=== PATIENT | female | born 1955 | race Caucasian/White ===

== ENCOUNTER 2023-04-23 01:13 | Inpatient (IN) ==
[2023-04-23] MEDS ORDERED: GLUCAGON FOR INJ 1 MG VIAL SQ PRN (01:52)
[2023-04-23] MEDS ORDERED: GLUCOSE 40% GEL 15 GM TUBE PO PRN (01:52)
[2023-04-23] MEDS ORDERED: GLUCOSE 10 TAB/TUBE PO PRN (01:52)
[2023-04-23] MEDS ORDERED: CARBOHYDRATES FOR HYPOGLYCEMIA PO PRN (01:52)
[2023-04-23] MEDS ORDERED: DEXTROSE 50% 50 ML SYRINGE IV PRN (01:52)
[2023-04-23] MEDS ORDERED: cefTRIAXone SODIUM 1,000 MG in DEXTROSE 5% AD-VAN 50 ML IV STA (02:12)
[2023-04-23] MEDS: LACTATED RINGER'S 1,000 ML IV SCH ×2 (02:20→04:26)
[2023-04-23 03:10] LABS: Hematocrit (blood only) 36.1 % (37.0-47.0); Hemoglobin 12.4 g/dl (12.0-16.0); Mean Corpuscular Hemoglobin 27.9 pg (25.0-34.0); Mean Corpuscular Hgb Conc 34.3 g/dL (32.0-36.0); Mean Corpuscular Volume 81.1 fL (80.0-100.0); Mean Platelet Volume 10.2 fL (9.4-12.4); Platelet Count 238 K/uL (130-400); RDW Coefficient of Variation 14.6 % (11.5-14.5); RDW Standard Deviation 42.9 fL (36.4-46.3); Red Blood Count 4.45 M/uL (4.20-5.40); White Blood Count 12.52 K/ul (4.8-10.8)
[2023-04-23] MEDS: INSULIN ASPART PER UNIT CHARGE SC SCH ×5 (03:23→20:18)
[2023-04-23 03:26] LABS: Albumin Globulin Ratio 1.2 (0.9-2); Albumin Level 3.2 gm/dl (3.4-5.0); BUN Creatinine Ratio 20.5 (10-20); Bilirubin,Total 0.8 mg/dl (0.2-1.0); C Reactive Protein 14.63 mg/dl (0-0.5); Calcium 8.2 mg/dl (8.6-10.3); Creatinine Clr Calc Pharmacy 64.8 ml/min; Est GFR (African American) 79.9 ml/min; Est GFR (Non-African American) 68.9 ml/min; Globulin 2.7 gm/dl (2.5-4.0); Potassium 3.8 mmol/L (3.5-5.1); Total Protein 5.9 gm/dl (6.0-8.3)
[2023-04-23 03:31] LABS: Troponin I High Sensitivity 8.4 pg/ml (0-14)
[2023-04-23 03:35] LABS: INR 1.1 (0.9-1.1); Prothrombin Time 12.2 Seconds (9.0-12.0)
[2023-04-23] MEDS ORDERED: PIPERACILLIN/TAZOBACTAM 4.5 GM (over 30 mins) IV ONE (04:30)
[2023-04-23 04:31] LABS: Base Excess ABG 0.8 mEq/L (-9-1.8); HCO3 ABG 25 mmol/L (19-24); PCO2 ABG 39 mmHg (35-46); PO2 ABG 31 mmHg (80-95); pH ABG 7.42 (7.35-7.45)
--- NOTE | 2023-04-23 04:34 | History & Physical Report ---
Date of Service April 23, 2023 Assessment & Plan (1) Sepsis: Plan: Patient is a 67-year-old female with a past medical history of hyperlipidemia, DM 2-uncontrolled, hypertension, CAD with previous stent placement who is a direct transfer from [facility]. Patient is minimally responsive to questions, but is hemodynamically stable. Patient is admitted to telemetry and is showing sinus tachycardia with otherwise normal vitals now. -Admit to telemetry -SIRS criteria at emergency department [facility] included leukocytosis, tachycardia, and fever with infectious source being urinary, CRP at 14.6 -Patient given 2 g of Rocephin total, given uncontrolled diabetes and current clinical picture, expand to Zosyn -Additional 2 L of LR given on admission to complete 30 cc per kg. -ABG pending -Originally showing signs of endorgan damage with elevated lactate and creatinine at [facility], both have improved -Tylenol as needed for fever -Zofran as needed for nausea (2) Altered mental status: Plan: -Unfortunately mental status has deteriorated with transportation to this facility. -Suspect metabolic encephalopathy in the setting of elevated blood sugars and sepsis. -Given left lower extremity weakness as complaint for going to the emergency department, MRI of the brain ordered to rule out bleed/stroke -Otherwise lab abnormalities improving (3) Hypercholesteremia: Plan: -Continue statin (4) HTN (hypertension): Plan: -Continue hold home BP meds in the setting of severe sepsis for now (5) Coronary artery disease: Plan: -Continue aspirin, Plavix, statin -Continue isosorbide mononitrate -Not noted in her chart, but patient likely has congestive heart failure as patient is on spironolactone, lisinopril, carvedilol which would all be therapies for congestive heart failure. I called [facility] ED to see if this was in the records and they had no history of it nor do they have an echocardiogram. (6) Uncontrolled type 2 diabetes mellitus with hyperglycemia: Plan: -Per [facility] ED note, patient has been out of diabetic medication for some time -Blood glucose was 400 at [facility] ED without evidence of DKA -Placed on basal bolus insulin with sliding scale based on weight -Carb consistent diet -A1c ordered (7) Tachycardia: Plan: -Sinus tachycardia since admission -Also noted at [facility] ED -Suspect due to sepsis, however, not responding to fluid resuscitation -Blood pressure also elevated currently -ABG ordered if patient has nonanion gap acidosis, this could increase heart rate -No complaint of chest pain here or at [facility] ED -High-sensitivity troponin negative at 8.4 Plan Disposition: Admit to telemetry with sepsis treatment and altered mental status work-up Diet: Carb consistent DVT prophylaxis: Lovenox CODE STATUS: Assumed full code given patient not able to clearly answer questions at this time Admission and Anticipated Discharge Date Admission Date: April 23, 2023 History of Present Illness Chief Complaint: Generally unwell Primary Care Provider: Keyshawn Echavarria Maria T Patient is a 67-year-old female with a past medical history of hyperlipidemia, DM 2-uncontrolled, hypertension, CAD with previous stent placement who is a direct transfer from [facility]. Patient is lethargic and minimally responding to questions at the time of patient's arrival to the floor in my exam. Patient was initially seen in their ED for neurologic deficit as she was having left lower extremity weakness that was intermittent throughout the day per ED note. Patient had work-up in their emergency department which was suggestive of sepsis due to a urinary source: Patient was febrile, tachycardic, and had an elevated white count at 14.3. Lactic acid was 2.5. She had a urinalysis that was positive for leukocyte esterase and blood. She was given 1 g of Rocephin in the ED at [facility]. Additionally her blood sugars were found to be in the 400s and she was given a total of 15 units of Lantus and 5 units of regular insulin. Because of the left lower extremity weakness, she had a CT of the head performed without contrast that was negative for acute abnormality. Per the hospital administration at [facility], patient need to be transferred due to neurologic deficit even though the attending provider reported that the deficit was almost entirely resolved with fluid and antibiotic therapy. Patient was accepted by Dr. Nascimento for direct admission. Upon arrival, patient is minimally responsive to questions. She does not answer to where she is or why she is here. States that her leg feels "okay". No family is with her on her arrival. No meaningful HPI gathered from patient at this time Allergies Allergy/AdvReac Type Severity Reaction Status Date / Time bee venom protein (honey bee) Allergy Verified 07/06/20 11:03 Home Medications Medication Instructions Recorded Confirmed Type aspirin 81 mg tablet,delayed 81 mg PO DAILY 07/06/20 04/23/23 History release (Adult Low Dose Aspirin) clopidogrel 75 mg tablet (Plavix) 75 mg PO DAILY 07/06/20 04/23/23 History pramipexole 0.25 mg tablet 0.375 mg PO BID 07/06/20 04/23/23 History (Mirapex) metoprolol succinate 200 mg 200 mg PO QAM 04/23/23 04/23/23 History tablet,extended release 24 hr blood sugar diagnostic (OneTouch #100 ea 04/26/23 Rx Verio test strips) cefdinir 300 mg capsule 300 mg PO BID #14 caps 04/26/23 Rx insulin glargine 100 unit/mL (3 18 unit (0.18 mL) subcut BID #15 mL 04/26/23 Rx mL) subcutaneous pen (Lantus Solostar U-100 Insulin) isosorbide mononitrate 60 mg 120 mg PO DAILY #0 tabs 04/26/23 Rx tablet,extended release 24 hr lancets 33 gauge (OneTouch Delica #100 ea 04/26/23 Rx Plus Lancet) metformin 500 mg tablet,extended 500 mg PO PM #30 tabs 04/26/23 Rx release 24 hr pantoprazole 40 mg tablet,delayed 40 mg PO DAILY #0 tabs 04/26/23 Rx release pen needle, diabetic 32 gauge x #100 ea 04/26/23 Rx 5/32" (Pen Needle) rosuvastatin 10 mg tablet 10 mg PO QAM #30 tabs 04/26/23 Rx spironolactone 100 mg tablet 50 mg PO QAM #30 tabs 04/26/23 04/24/23 Rx Past Med/Surg History Medical History (Updated 04/24/23 @ 11:10 by Sosa Barnes MD) CHF (congestive heart failure) Coronary artery disease HTN (hypertension) Hypercholesteremia Lumbago Lumbar facet joint syndrome Restless leg Spinal stenosis, lumbar region without neurogenic claudication Surgical History (Updated 07/06/20 @ 12:31 by Tabitha Mcclendon DO) History of lumbar surgery L4-5 discectomy Social History (Updated 07/06/20 @ 11:01 by Pina Perera RN) Smoking Status: Never smoker Hx Alcohol Use: No Hx Substance Use: No Preferred Language: Swedish Communication Ability: Effective Visual Impairment: Limited Hearing Ability: Hard of Hearing Lye Peel Operator Required: No Beliefs That Will Affect Care: None marital status: Current Living Situation: Spouse current occupational status: retired Feels Safe at Home: Yes Assistive Devices: None Review of Systems Review of Systems: Unobtainable due to cognitive status Physical Exam Constitutional: well developed, well nourished and + ill appearing Eyes: + anicteric sclerae Neck: normal visual inspection Respiratory: normal respiratory effort, lungs clear to auscultation Cardiovascular: Rate/Rhythm: regular rhythm and + tachycardic Vessels: no JVD Gastrointestinal (Abdomen): normal bowel sounds, soft, nontender, no hepatosplenomegaly Musculoskeletal: Head/Neck/Chest: normocephalic and head atraumatic Unable to perform thorough MSK/neuro exam given current cognitive status. Skin: normal turgor Neurologic: Speech / Cognition: + abnormal cognition Psychiatric: Orientation: oriented to person; + not oriented to place and + not oriented to time Lymphatic: no cervical or axillary lymphadenopathy Results & Data Results & Data Vital Signs (Past 12 Hours) Vital Signs Temp Pulse Pulse Resp BP Pulse Ox O2 Del Method 04/23/23 03:14 36.9 C 130 H 22 150/84 H 93 Room Air 04/23/23 02:42 126 H 04/23/23 01:57 37.2 C 114 H 21 127/62 92 Room Air 04/23/23 01:52 37.2 C 114 H 21 127/62 92 Room Air Code Status & VTE Plan VTE Prophylaxis Plan VTE Prophylaxis will be ordered: Yes Supervising Physician Co-Signing Physician Notes Attending addendum: I have physically seen this patient, have supervised the medical residents activities, and agree with the H&P unless as otherwise noted. Assessment and Plan: Sepsis presumptively due to UTI- Follow urine culture sensitivity Follow blood culture and sensitivity Received ceftriaxone 2 g IV from the ED Admit Zosyn 4.5 g IV every 8 hours Sepsis dose IV fluids at 30 mils per kilo Acetaminophen 650 mg by mouth every 6 hours as needed for mild pain or fever Zofran 4 mg IV every 6 hours as needed Metabolic encephalopathy- Ordering MRI to assess for possible CVA as cause Otherwise treat with antibiotics as noted above and IV fluid resuscitation Hypertension- Home medications on hold due to borderline blood pressure CAD- Continue aspirin, Plavix, isosorbide mononitrate Uncontrolled diabetes mellitus with hyperglycemia- Placed on basal bolus insulin with sliding scale Check hemoglobin A1c Remaining orders and notations as noted
[2023-04-23 04:41] LABS: Allen Test Pos (Pos); Oxygen Saturation ABG < 60.0 % (90-95)
[2023-04-23] MEDS: HEPARIN SOD 5,000 UNIT/0.5 ML VIAL SQ SCH ×3 (06:00→21:23)
[2023-04-23 07:08] LABS: Amphetamines+Metham, Urine Neg (Neg); Barbiturates, Urine Neg (Neg); Benzodiazepine, Urine Neg (Neg); Cocaine, Urine Neg (Neg); MDMA (Ecstacy), Urine Neg (Neg); Methadone, Urine Neg (Neg); Opiate, Urine Neg (Neg); Phencyclidine, Urine Neg (Neg)
[2023-04-23 07:43] LABS: Estimated Average Glucose 352 mg/dl; Hemoglobin A1C 13.9 % (4.5-5.6)
--- NOTE | 2023-04-23 08:38 | Electrocardiogram Report ---
Test Reason : Blood Pressure : / mmHG Vent. Rate : 125 BPM Atrial Rate : 125 BPM P-R Int : 170 ms QRS Dur : 074 ms QT Int : 288 ms P-R-T Axes : 059 029 047 degrees QTc Int : 415 ms Sinus tachycardia Diffuse Minor Nonspecific ST abnormality Abnormal ECG No previous ECGs available Confirmed by Rene Hicks ([id number]) on 04/23/2023 8:38:10 AM Referred By: Shade Nascimento Confirmed By:Rene Hicks
[2023-04-23] MEDS ORDERED: NITROGLYCERIN 0.4 MG/HR PATCH TD SCH (09:00)
[2023-04-23] MEDS: PIPERACILLIN/TAZOBACTAM 4.5 GM in DEXTROSE 5% 100 ML IV SCH ×2 (09:18→17:25)
[2023-04-23] MEDS: ASPIRIN 81 MG ECTAB PO SCH (09:19)
[2023-04-23] MEDS: CLOPIDOGREL BISULFATE 75 MG TAB PO SCH (09:20)
[2023-04-23] MEDS: ISOSORBIDE MONO EXTENDED REL 60 MG TABCR PO SCH (09:21)
[2023-04-23] MEDS: PRAMIPEXOLE DIHYDROCHLO 0.25 MG TAB PO SCH ×2 (09:22→20:09)
[2023-04-23] MEDS: PANTOprazole 40 MG TAB PO SCH (09:22)
[2023-04-23] MEDS: ROSUVASTATIN CALCIUM 10 MG TAB PO SCH (09:26)
[2023-04-23] MEDS: MAGNESIUM SULFATE / D5W 1 GM/100 ML BAG IV SCH ×3 (09:46→15:21)
[2023-04-23] MEDS: LANTUS PER UNIT CHARGE SQ SCH ×2 (09:53→20:18)
[2023-04-23] MEDS ORDERED: GADOBUTROL 65ML VIAL IV ONE (11:11)
--- NOTE | 2023-04-23 11:55 | Magnetic Resonance Report ---
MR brain wo/w con HISTORY: 67 years-old Female LE weakness/ altered mental status acutely altered mental status COMPARISON: None TECHNIQUE: Multiplanar multisequence MR of the brain was obtained both with and without the use of 8. 5 cc Gadavist FINDINGS: No restricted diffusion. Midline structures are unremarkable. There is no acute intracranial hemorrha ge, midline shift, abnormal extra-axial collection, hydrocephalus or intracranial mass. Study is mild ly motion degraded. Mild scattered T2/FLAIR hyperintense foci throughout the white matter. No abnorma l enhancement. Cerebral venous sinuses and major arterial flow voids are patent. Skull, orbits and soft tissues are unremarkable. Mild mucosal thickening of the paranasal sinuses. Mastoid air cells are clear. IMPRESSION: 1. No acute intracranial abnormality. 2. No abnormal enhancement. 3. Mild T2/FLAIR hyperintense foci throughout the white matter are nonspecific, likely representing c hronic microvascular ischemic disease. ACT 112: Negative or not required by law. The above report was generated using voice recognition software. It may contain grammatical, syntax o r spelling errors. Electronically signed by: Osmin Mathews M.D. 04/23/2023 11:54 AM
--- NOTE | 2023-04-23 12:04 | History & Physical Bridge Note ---
Date of Service April 23, 2023 History & Physical Bridge Note I have examined the patient, reviewed the History & Physical and in the interval since the performance of the History & Physical I have noted the following changes of clinical significance: Pt much more clear with mentation when seen this AM. Is about to eat lunch. C/o chronic back pain worsened by lying in bed for the last day. Denies chest pain, SOB, cough, abd pain, constipation, diarrhea. Was having urinary frequency and urgency for 1 week prior to admission. No fevers/chills she knows of. Does recall having some intermittent left leg weakness yesterday which is now resolved. Brain MRI reviewed and is negative for acute issues. She reports noncompliance with almost all of her meds except ASA,Plavix, Toprol XL, and Mirapex. She has not seen a [employer] [facility] in years she thinks and has not seen a PCP in over a year. She has not been checking her glucose. Vitals reviewed, sinus tach on tele, BPs elevated, now with fever AAOx3, obese, drowsy at times, sitting in chair tachy but reg rhythm CTAB no wcr Abd +BS soft NT ND Ext trace pitting edema 67 yo female here with sepsis, UTI, acute metabolic encephalopathy Severely uncontrolled DM, noncompliance with other cardiac meds, no records available but has a h/o CAD with 4 stents -dc nitropatch but can continue isosorbide given history and BPs are elevated restart home Toprol but split into 100mg po bid no further IVFs needed tylenol for back pain continue current antibiotics follow cultures here and back at [facility] insulin for DM and will need diabetic education Needs PCP
[2023-04-23] MEDS: ACETAMINOPHEN 325 MG TAB PO PRN (12:15)
[2023-04-23] MEDS: METOPROLOL SUCC 50MG EXT REL TAB PO SCH ×2 (13:29→20:08)
[2023-04-24] MEDS: PIPERACILLIN/TAZOBACTAM 4.5 GM in DEXTROSE 5% 100 ML IV SCH ×3 (01:39→17:10)
[2023-04-24] MEDS: ACETAMINOPHEN 325 MG TAB PO PRN ×3 (03:10→21:11)
[2023-04-24] MEDS: HEPARIN SOD 5,000 UNIT/0.5 ML VIAL SQ SCH ×3 (05:43→21:12)
[2023-04-24 06:48] LABS: Basophils # (auto) 0.04 K/uL (0-0.2); Basophils % (auto) 0.3 %; Eosinophils # (auto) 0.13 K/uL (0-0.50); Eosinophils % (auto) 1.1 %; Hematocrit (blood only) 32.1 % (37.0-47.0); Hemoglobin 10.9 g/dl (12.0-16.0); Immature Granulocytes # (auto) 0.06 K/uL (0.01-0.20); Immature Granulocytes % (auto) 0.5 %; Lymphocytes # (auto) 1.91 K/uL (1.2-3.4); Lymphocytes % (auto) 16.6 %; Mean Corpuscular Hemoglobin 27.6 pg (25.0-34.0); Mean Corpuscular Volume 81.3 fL (80.0-100.0); Mean Platelet Volume 10.7 fL (9.4-12.4); Monocytes # (auto) 1.23 K/uL (0.11-0.59); Monocytes % (auto) 10.7 %; Neutrophils # (auto) 8.16 K/uL (1.40-6.50); Neutrophils % (auto) 70.8 %; Platelet Count 228 K/uL (130-400); RDW Coefficient of Variation 14.7 % (11.5-14.5); RDW Standard Deviation 43.1 fL (36.4-46.3); Red Blood Count 3.95 M/uL (4.20-5.40); White Blood Count 11.53 K/ul (4.8-10.8)
[2023-04-24 07:05] LABS: Albumin Globulin Ratio 1.1 (0.9-2); Albumin Level 3.1 gm/dl (3.4-5.0); BUN Creatinine Ratio 15.7 (10-20); Bilirubin,Total 0.9 mg/dl (0.2-1.0); Calcium 8.5 mg/dl (8.6-10.3); Creatinine Clr Calc Pharmacy 52.8 ml/min; Est GFR (African American) 62.4 ml/min; Est GFR (Non-African American) 53.8 ml/min; Globulin 2.8 gm/dl (2.5-4.0); Magnesium 1.8 mg/dl (1.7-2.4); Potassium 3.6 mmol/L (3.5-5.1); Total Protein 5.9 gm/dl (6.0-8.3)
[2023-04-24] MEDS ORDERED: MAGNESIUM SULFATE / D5W 1 GM/100 ML BAG IV ONE (07:58)
[2023-04-24] MEDS ORDERED: POTASSIUM CHLORIDE CRTAB 20 MEQ TABCR PO STA (07:59)
[2023-04-24] MEDS: INSULIN ASPART PER UNIT CHARGE SC SCH ×4 (08:33→20:44)
[2023-04-24] MEDS: LANTUS PER UNIT CHARGE SQ SCH ×2 (08:33→20:43)
[2023-04-24] MEDS: ISOSORBIDE MONO EXTENDED REL 60 MG TABCR PO SCH (08:35)
[2023-04-24] MEDS: PANTOprazole 40 MG TAB PO SCH (08:35)
[2023-04-24] MEDS: CLOPIDOGREL BISULFATE 75 MG TAB PO SCH (08:35)
[2023-04-24] MEDS: ASPIRIN 81 MG ECTAB PO SCH (08:35)
[2023-04-24] MEDS: PRAMIPEXOLE DIHYDROCHLO 0.25 MG TAB PO SCH ×2 (08:35→20:33)
[2023-04-24] MEDS: ROSUVASTATIN CALCIUM 10 MG TAB PO SCH (08:36)
[2023-04-24] MEDS: METOPROLOL SUCC 50MG EXT REL TAB PO SCH ×2 (08:36→20:35)
--- NOTE | 2023-04-24 11:11 | Hospitalist Progress Note ---
Date of Service April 24, 2023 Assessment & Plan (1) Sepsis: Plan: Patient is a 67-year-old female with a past medical history of hyperlipidemia, DM 2-uncontrolled, hypertension, CAD with previous stent placement who is a direct transfer from [facility] who is here with sepsis, UTI, and acute encephalopathy. She was having dysuria and urinary urgency and frequency for 1 week prior to admission, does not recall fevers or chills at home. Continues to spike fevers, tachycardia is improving, encephalopathy greatly improved, leukocytosis improving Blood cultures remain no growth to date here and at [facility]. Urine culture pending both here and at [facility] IV fluids were discontinued after initial volume resuscitation due to history of CHF Procalcitonin mildly elevated Initially given Rocephin at [facility] and remains on Zosyn here -Continue to follow cultures both here and at [facility] -Tylenol as needed for fever -Continue to follow CBC, CMP (2) Acute metabolic encephalopathy: Plan: -Suspect metabolic encephalopathy in the setting of elevated blood sugars and sepsis. -Given left lower extremity weakness as complaint for going to the emergency department MRI of the brain ordered to rule out bleed/stroke at outside hospital--negative Otherwise greatly improved (3) Uncontrolled type 2 diabetes mellitus with hyperglycemia: Plan: -patient has been out of diabetic medication for some time and cites not having a PCP as the reason She is not checking her blood sugars Hemoglobin A1c her 13.9% -Blood glucose was 400 at [place] ED without evidence of DKA Now much improved control-continue to titrate up slowly on insulin regimen Seen by tree trimmer-patient is willing to go back on Lantus at home and metformin Needs PCP follow-up (4) Tachycardia: Plan: -Sinus tachycardia upon admission secondary to sepsis and beta-silviano with drawal -High-sensitivity troponin negative at 8.4 -Now greatly improved with volume resuscitation and restarting her home Toprol- XL -Follow on telemetry (5) HTN (hypertension): Plan: Blood pressures are now elevated-restarted home Toprol-XL Will restart spironolactone today but at a lower dose than home dose-start 25 mg daily Follow BMP (6) Coronary artery disease: Plan: -Continue aspirin, Plavix, statin -Lipid panel with elevated triglycerides likely from uncontrolled diabetes, LDL controlled at 100, low HDL 27 -Continue isosorbide mononitrate -Not noted in her chart, but patient likely has congestive heart failure as patient is on spironolactone, lisinopril, carvedilol which would all be therapies for congestive heart failure She has not follow-up with cardiology in years but it seems as per her med rec that cardiology is prescribing several medications although she has been noncompliant Restarting home spironolactone at lower dose 25 mg daily (7) Hypercholesteremia: Plan: -Continue statin Lipid panel as above (8) Restless leg: Plan: Continue home Mirapex (9) CHF (congestive heart failure): Plan: Possibly HFrEF? No previous records Consider echocardiogram here but not necessary at this time Needs to establish follow-up with cardiology again as an outpatient (10) Lumbago: Plan: Chronic Tylenol as needed Plan DVT prophylaxis-heparin SQ Disposition-continued stay in PCU, slowly improving, PT/OT consults placed Admission and Anticipated Discharge Date Admission Date: April 23, 2023 Subjective Patient feeling better today, no abdominal pain. No chest pain or shortness of breath. Has not moved bowels since admission, requesting stool softener Would like Chi catheter out Has noticed her ankles are swelling would like to be restarted on her home water pill Telemetry with sinus tachycardia 90s to 100s overnight and now improved to normal sinus rhythm with rates in the 70s Physical Exam Constitutional: WD/WN, vitals as above Neck: trachea midline, no thyromegaly Respiratory: normal respiratory effort, lungs clear to auscultation Cardiovascular: Rate/Rhythm: regular rate and regular rhythm Extremities: + edema (Trace ankle edema) Chest (Breasts): Chest: normal inspection of chest Gastrointestinal (Abdomen): normal bowel sounds, soft, nontender, no hepatosplenomegaly Musculoskeletal: Extremities: extremities normal to inspection; no cyanosis and no clubbing Skin: no rashes, warm and dry Neurologic: moves all extremities and awake; no focal motor deficits Psychiatric: A+Ox3, euthymic affect Genitourinary: Chi catheter in place draining clear yellow urine Results & Data Results & Data Vital Signs (Past 12 Hours) Vital Signs Temp Pulse Pulse Resp BP BP Pulse Ox 04/24/23 08:00 91 H 04/24/23 07:27 37.0 C 87 19 109/68 95 04/24/23 03:11 38.1 C H 98 H 20 118/69 95 04/24/23 00:24 103 H O2 Del Method O2 Flow Rate 04/24/23 08:00 04/24/23 07:27 Nasal Cannula 2.0 04/24/23 03:11 Nasal Cannula 2 04/24/23 00:24 Laboratory Results CBC, CMP, TSH, lipid panel reviewed Blood cultures no growth to date Urine culture pending I called [facility] lab and blood cultures there are preliminary no growth, urine culture pending PG Care Time/CCT Total # of Minutes Spent Total Time Spent with Patient: Total time spent is greater than 50% in coordination of care (as documented) at patient's floor/unit and/or counseling patient: Coding Level of Care Code 80651 SUB INP/OBS CARE 3/50MIN Diagnoses Sepsis A41.9 Acute metabolic encephalopathy G93.41 Uncontrolled type 2 diabetes mellitus with hyperglycemia E11.65 Tachycardia R00.0 HTN (hypertension) I10 Coronary artery disease I25.10 Hypercholesteremia E78.00 Restless leg G25.81 CHF (congestive heart failure) I50.9 Lumbago M54.5; G89.29 Back pain laterality: midline Chronicity: chronic Sciatica presence: without sciatica (10) Lumbago Back pain laterality: midline Chronicity: chronic Sciatica presence: without sciatica Qualified Code(s): M54.5 - Low back pain; G89.29 - Other chronic pain
[2023-04-24] MEDS: SPIRONOLACTONE 25 MG TAB PO SCH (12:02)
[2023-04-24] MEDS: DOCUSATE SODIUM 100 MG CAP PO SCH ×2 (12:02→20:35)
[2023-04-24] MEDS ORDERED: LIDOCAINE 5% 1 PATCH TD STA (23:17)
[2023-04-25] MEDS: PIPERACILLIN/TAZOBACTAM 4.5 GM in DEXTROSE 5% 100 ML IV SCH ×3 (01:50→17:58)
[2023-04-25] MEDS: HEPARIN SOD 5,000 UNIT/0.5 ML VIAL SQ SCH (05:36)
[2023-04-25 08:26] LABS: Basophils # (auto) 0.06 K/uL (0-0.2); Basophils % (auto) 0.6 %; Eosinophils # (auto) 0.18 K/uL (0-0.50); Eosinophils % (auto) 1.9 %; Hematocrit (blood only) 34.6 % (37.0-47.0); Hemoglobin 11.6 g/dl (12.0-16.0); Immature Granulocytes # (auto) 0.06 K/uL (0.01-0.20); Immature Granulocytes % (auto) 0.6 %; Lymphocytes # (auto) 2.09 K/uL (1.2-3.4); Lymphocytes % (auto) 21.9 %; Mean Corpuscular Hemoglobin 27.5 pg (25.0-34.0); Mean Corpuscular Hgb Conc 33.5 g/dL (32.0-36.0); Mean Platelet Volume 10.3 fL (9.4-12.4); Monocytes # (auto) 0.91 K/uL (0.11-0.59); Monocytes % (auto) 9.5 %; Neutrophils # (auto) 6.26 K/uL (1.40-6.50); Neutrophils % (auto) 65.5 %; Platelet Count 250 K/uL (130-400); RDW Coefficient of Variation 14.6 % (11.5-14.5); RDW Standard Deviation 43.3 fL (36.4-46.3); Red Blood Count 4.22 M/uL (4.20-5.40); White Blood Count 9.56 K/ul (4.8-10.8)
[2023-04-25 08:44] LABS: Albumin Level 3.5 gm/dl (3.4-5.0); BUN Creatinine Ratio 14.3 (10-20); Bilirubin,Total 0.5 mg/dl (0.2-1.0); Calcium 9.1 mg/dl (8.6-10.3); Creatinine Clr Calc Pharmacy 58.2 ml/min; Est GFR (African American) 70.2 ml/min; Est GFR (Non-African American) 60.5 ml/min; Globulin 3.4 gm/dl (2.5-4.0); Magnesium 1.7 mg/dl (1.7-2.4); Potassium 3.9 mmol/L (3.5-5.1); Total Protein 6.9 gm/dl (6.0-8.3)
[2023-04-25] MEDS: INSULIN ASPART PER UNIT CHARGE SC SCH ×4 (09:04→20:26)
[2023-04-25] MEDS: ASPIRIN 81 MG ECTAB PO SCH (09:05)
[2023-04-25] MEDS: CLOPIDOGREL BISULFATE 75 MG TAB PO SCH (09:05)
[2023-04-25] MEDS: LANTUS PER UNIT CHARGE SQ SCH ×2 (09:05→20:26)
[2023-04-25] MEDS: METOPROLOL SUCC 50MG EXT REL TAB PO SCH ×2 (09:06→20:30)
[2023-04-25] MEDS: DOCUSATE SODIUM 100 MG CAP PO SCH (09:06)
[2023-04-25] MEDS: ISOSORBIDE MONO EXTENDED REL 60 MG TABCR PO SCH (09:06)
[2023-04-25] MEDS: SPIRONOLACTONE 25 MG TAB PO SCH (09:07)
[2023-04-25] MEDS: ROSUVASTATIN CALCIUM 10 MG TAB PO SCH (09:07)
[2023-04-25] MEDS: PRAMIPEXOLE DIHYDROCHLO 0.25 MG TAB PO SCH ×2 (09:07→20:30)
[2023-04-25] MEDS: PANTOprazole 40 MG TAB PO SCH (09:07)
[2023-04-25] MEDS ORDERED: SPIRONOLACTONE 25 MG TAB PO ONE (13:43)
--- NOTE | 2023-04-25 13:49 | Hospitalist Progress Note ---
Date of Service April 25, 2023 Assessment & Plan (1) Sepsis: Plan: Patient is a 67-year-old female with a past medical history of hyperlipidemia, DM 2-uncontrolled, hypertension, CAD with previous stent placement X4 who is a direct transfer from [facility] here with sepsis, UTI, and acute encephalopathy. She was having dysuria and urinary urgency and frequency for 1 week prior to admission, does not recall fevers or chills at home. Fevers, tachycardia, encephalopathy, and leukocytosis all now resolved. Blood pressures are normal to mildly elevated Blood cultures remain no growth to date here and at [facility] except 1/2 coagulase- negative Staphylococcus which is likely skin contaminant. Urine culture mixed richie here, [facility] urine culture pending IV fluids were discontinued after initial volume resuscitation due to history of CHF Procalcitonin mildly elevated Initially given Rocephin at [facility] and remains on Zosyn here for broad- spectrum coverage for urinary source -Continue to follow cultures both here and at [facility]-would call [facility] again on for final result of urine and blood -Continue Zosyn for now but then can transition to p.o. antibiotic for UTI if blood cultures remain negative -Tylenol as needed for fever -Continue to follow CBC, CMP (2) Acute metabolic encephalopathy: Plan: -Suspect metabolic encephalopathy in the setting of elevated blood sugars and sepsis. Now resolved -Given left lower extremity weakness as complaint for going to the emergency department MRI of the brain ordered to rule out bleed/stroke at outside hospit al--negative (3) Uncontrolled type 2 diabetes mellitus with hyperglycemia: Plan: -patient has been out of diabetic medication for some time and cites not having a PCP as the reason She is not checking her blood sugars at home and reports no one ever gave her education on diabetes and she was diagnosed about 2 years ago and placed on metformin Hemoglobin A1c here 13.9% -Blood glucose was 400 at [facility] ED without evidence of DKA Now much improved control-continue to titrate up slowly on insulin regimen- increase Lantus to 18 units twice daily and tighten down correction factor to 22 Seen by printing table worker-patient is willing to go back on Lantus at home and metformin On discharge she will need Lantus Solostar pen, pen needles 32-gauge 5/32" to inject 1 time per day-must be generic, metformin ER, One Touch Verio test strips to check 3 times a day, and One Touch delicate lancets 33-gauge to check 3 times a day as per historical records administrator Needs PCP follow-up (4) Tachycardia: Plan: -Sinus tachycardia upon admission secondary to sepsis and beta-silviano withdrawal-now resolved -High-sensitivity troponin negative at 8.4 -Now greatly improved with volume resuscitation and restarting her home Toprol- XL -Follow on telemetry (5) HTN (hypertension): Plan: Blood pressures are now controlled continue home Toprol-XL -Restarted spironolactone 25 mg daily but given worsening lower extremity edema- increase to 50 Mg once daily (home dose 100 Mg once daily) Follow BMP (6) Coronary artery disease: Plan: No acute issues -Continue aspirin, Plavix, statin -Lipid panel with elevated triglycerides likely from uncontrolled diabetes, LDL controlled at 100, low HDL 27 -Continue isosorbide mononitrate -Not noted in her chart, but patient likely has congestive heart failure as patient is on spironolactone, lisinopril, carvedilol which would all be therapies for congestive heart failure She has not follow-up with cardiology in years but it seems as per her med rec that cardiology is prescribing several medications although she has been noncompliant -Continue spironolactone as well and increased dose to 50 mg daily -Check echocardiogram -Patient wishes to establish care with a [facility] vulnerability researcher-I have asked nurse navigator to arrange this (7) Hypercholesteremia: Plan: -Continue statin Lipid panel as above (8) Restless leg: Plan: Continue home Mirapex (9) CHF (congestive heart failure): Plan: Possibly HFrEF? No previous records Check echocardiogram Needs to establish follow-up with cardiology again as an outpatient-she would like to get established without any cardiology-this will be arranged by our nurse navigator (10) Lumbago: Plan: Chronic Tylenol as needed Plan DVT prophylaxis-heparin SQ Disposition-continued stay in PCU, Continues to improve daily, PT/OT consults placed and recommend home. Most likely discharge in 1 to 2 days Admission and Anticipated Discharge Date Admission Date: April 23, 2023 Subjective Patient feeling much better today but feels her legs are much more swollen. She is feeling more steady on her feet. Denies chest pains or shortness of breath, no nausea or vomiting. She did have multiple loose stools through the night and this morning. Telemetry with normal sinus rhythm with rates in the 80s to low 100s Physical Exam Constitutional: WD/WN, vitals as above Neck: trachea midline, no thyromegaly Respiratory: normal respiratory effort, lungs clear to auscultation Cardiovascular: Rate/Rhythm: regular rate and regular rhythm Extremities: + edema (Worsening 1+ pitting edema to the mid tibia today bilaterally) Chest (Breasts): Chest: normal inspection of chest Gastrointestinal (Abdomen): normal bowel sounds, soft, nontender, no hepatosplenomegaly Musculoskeletal: Extremities: extremities normal to inspection; no cyanosis and no clubbing Skin: no rashes, warm and dry Neurologic: moves all extremities and awake; no focal motor deficits Psychiatric: A+Ox3, euthymic affect Results & Data Results & Data Vital Signs (Past 12 Hours) Vital Signs Temp Pulse Pulse Resp BP BP Pulse Ox 04/25/23 11:22 36.9 C 86 18 123/77 96 04/25/23 07:45 90 04/25/23 07:38 36.7 C 89 18 142/77 H 95 04/25/23 03:41 36.8 C 81 20 116/73 95 O2 Del Method 04/25/23 11:22 Room Air 04/25/23 07:45 04/25/23 07:38 Room Air 04/25/23 03:41 Room Air Laboratory Results CBC, CMP, magnesium reviewed Blood cultures-no growth to date Urine culture with mixed richie Blood cultures from [facility] with 1/2 bottles with coagulase-negative Staphylococcus and urine culture from [facility]-pending [facility] Care Time/CCT Total # of Minutes Spent Total Time Spent with Patient: Total time spent is greater than 50% in coordination of care (as documented) at patient's floor/unit and/or counseling patient: Coding Level of Care Code 63052 SUB INP/OBS CARE 3/50MIN Diagnoses Sepsis A41.9 Acute metabolic encephalopathy G93.41 Uncontrolled type 2 diabetes mellitus with hyperglycemia E11.65 Tachycardia R00.0 HTN (hypertension) I10 Coronary artery disease I25.10 Hypercholesteremia E78.00 Restless leg G25.81 CHF (congestive heart failure) I50.9 Lumbago M54.5; G89.29 Back pain laterality: midline Chronicity: chronic Sciatica presence: without sciatica (10) Lumbago Back pain laterality: midline Chronicity: chronic Sciatica presence: without sciatica Qualified Code(s): M54.5 - Low back pain; G89.29 - Other chronic pain
[2023-04-25] MEDS: ACETAMINOPHEN 325 MG TAB PO PRN (17:38)
[2023-04-26] MEDS: PIPERACILLIN/TAZOBACTAM 4.5 GM in DEXTROSE 5% 100 ML IV SCH ×2 (01:49→12:06)
[2023-04-26] MEDS: ACETAMINOPHEN 325 MG TAB PO PRN (05:14)
[2023-04-26 06:19] LABS: Basophils # (auto) 0.04 K/uL (0-0.2); Basophils % (auto) 0.5 %; Eosinophils # (auto) 0.25 K/uL (0-0.50); Eosinophils % (auto) 3.1 %; Hematocrit (blood only) 31.5 % (37.0-47.0); Hemoglobin 10.3 g/dl (12.0-16.0); Immature Granulocytes # (auto) 0.07 K/uL (0.01-0.20); Immature Granulocytes % (auto) 0.9 %; Lymphocytes # (auto) 2.18 K/uL (1.2-3.4); Lymphocytes % (auto) 26.7 %; Mean Corpuscular Hemoglobin 27.2 pg (25.0-34.0); Mean Corpuscular Hgb Conc 32.7 g/dL (32.0-36.0); Mean Corpuscular Volume 83.3 fL (80.0-100.0); Mean Platelet Volume 10.1 fL (9.4-12.4); Monocytes # (auto) 0.84 K/uL (0.11-0.59); Monocytes % (auto) 10.3 %; Neutrophils # (auto) 4.77 K/uL (1.40-6.50); Neutrophils % (auto) 58.5 %; Platelet Count 280 K/uL (130-400); RDW Coefficient of Variation 14.8 % (11.5-14.5); RDW Standard Deviation 45.1 fL (36.4-46.3); Red Blood Count 3.78 M/uL (4.20-5.40); White Blood Count 8.15 K/ul (4.8-10.8)
[2023-04-26 06:39] LABS: BUN Creatinine Ratio 16.5 (10-20); Creatinine Clr Calc Pharmacy 58.3 ml/min; Est GFR (Non-African American) 61.3 ml/min; Magnesium 1.7 mg/dl (1.7-2.4); Potassium 4.3 mmol/L (3.5-5.1)
[2023-04-26] MEDS: INSULIN ASPART PER UNIT CHARGE SC SCH ×2 (08:47→12:04)
[2023-04-26] MEDS: LANTUS PER UNIT CHARGE SQ SCH (08:47)
[2023-04-26] MEDS: PRAMIPEXOLE DIHYDROCHLO 0.25 MG TAB PO SCH (08:48)
[2023-04-26] MEDS: CLOPIDOGREL BISULFATE 75 MG TAB PO SCH (08:51)
[2023-04-26] MEDS: ROSUVASTATIN CALCIUM 10 MG TAB PO SCH (08:52)
[2023-04-26] MEDS: PANTOprazole 40 MG TAB PO SCH (08:52)
[2023-04-26] MEDS: ISOSORBIDE MONO EXTENDED REL 60 MG TABCR PO SCH (08:52)
[2023-04-26] MEDS: METOPROLOL SUCC 50MG EXT REL TAB PO SCH (08:54)
[2023-04-26] MEDS: ASPIRIN 81 MG ECTAB PO SCH (08:54)
[2023-04-26] MEDS ORDERED: SPIRONOLACTONE 25 MG TAB PO SCH (09:00)
[2023-04-26] MEDS ORDERED: ENOXAPARIN INJ 40 MG/0.4 ML SYR SQ SCH (09:00)
--- NOTE | 2023-04-26 12:14 | XCELERA ---
[id number]
--- NOTE | 2023-04-26 14:48 | Discharge Summary ---
Date of Service April 26, 2023 Admission HPI Per Admitting Provider Patient is a 67-year-old female with a past medical history of hyperlipidemia, DM 2-uncontrolled, hypertension, CAD with previous stent placement who is a direct transfer from [facility]. Patient is lethargic and minimally responding to questions at the time of patient's arrival to the floor in my exam. Patient was initially seen in their ED for neurologic deficit as she was having left lower extremity weakness that was intermittent throughout the day per ED note. Patient had work-up in their emergency department which was suggestive of sepsis due to a urinary source: Patient was febrile, tachycardic, and had an elevated white count at 14.3. Lactic acid was 2.5. She had a urinalysis that was positive for leukocyte esterase and blood. She was given 1 g of Rocephin in the ED at [facility]. Additionally her blood sugars were found to be in the 400s and she was given a total of 15 units of Lantus and 5 units of regular insulin. Because of the left lower extremity weakness, she had a CT of the head performed without contrast that was negative for acute abnormality. Per the hospital administration at [facility], patient need to be transferred due to neurologic deficit even though the attending provider reported that the deficit was almost entirely resolved with fluid and antibiotic therapy. Patient was accepted by Dr. Nascimento for direct admission. Upon arrival, patient is minimally responsive to questions. She does not answer to where she is or why she is here. States that her leg feels "okay". No family is with her on her arrival. No meaningful HPI gathered from patient at this time Principal Diagnosis sepsis Discharge Exam Constitutional: WD/WN, vitals as above Neck: trachea midline, no thyromegaly Respiratory: normal respiratory effort, lungs clear to auscultation Cardiovascular: Rate/Rhythm: regular rate and regular rhythm Extremities: + edema (1+ pitting edema to the mid tibia today bilaterally) Chest (Breasts): Chest: normal inspection of chest Gastrointestinal (Abdomen): normal bowel sounds, soft, nontender, no hepatosplenomegaly Musculoskeletal: Extremities: extremities normal to inspection; no cyanosis and no clubbing Skin: no rashes, warm and dry Neurologic: moves all extremities and awake; no focal motor deficits Psychiatric: A+Ox3, euthymic affect Discharge Data Allergies Allergy/AdvReac Type Severity Reaction Status Date / Time bee venom protein (honey bee) Allergy Verified 07/06/20 11:03 Consultations 04/24/23 07:41 Consult [facility] hide examiner Routine Ordered Studies 04/23/23 03:55 MRI Brain [MR brain wo/w con] Urgent Hospital Course (1) Sepsis: Patient is a 67-year-old female with a past medical history of hyperlipidemia, DM 2-uncontrolled, hypertension, CAD with previous stent placement X4 who is a direct transfer from [facility] here with sepsis, UTI, and acute encephalopathy. She was having dysuria and urinary urgency and frequency for 1 week prior to admission, does not recall fevers or chills at home. Fevers, tachycardia, encephalopathy, and leukocytosis all now resolved. Blood pressures are normal to mildly elevated Blood cultures remain no growth to date here and at [facility] except 1/2 coagulase- negative Staphylococcus which is likely skin contaminant. Urine culture mixed richie here, [facility] urine culture pending IV fluids were discontinued after initial volume resuscitation due to history of CHF Procalcitonin mildly elevated Initially given Rocephin at [facility] and remains on Zosyn here for broad- spectrum coverage for urinary source -Continue to follow cultures both here and at [facility]-would call [facility] again on for final result of urine and blood -Treated with Zosyn for now will transition to p.o. antibiotic for UTI/ blood cultures remain negative as per [facility]. (2) Acute metabolic encephalopathy: -Suspect metabolic encephalopathy in the setting of elevated blood sugars and sepsis. Now resolved -Given left lower extremity weakness as complaint for going to the emergency department MRI of the brain ordered to rule out bleed/stroke at outside hospital--negative Intermittent hypoxemia-check overnight pulse oximetry last night as there was concern that she may have sleep apnea given intermittent hypoxemia and severe daytime hypersomnia which is chronic for her This appeared to be negative. (3) Uncontrolled type 2 diabetes mellitus with hyperglycemia: -patient has been out of diabetic medication for some time and cites not having a PCP as the reason She is not checking her blood sugars at home and reports no one ever gave her education on diabetes and she was diagnosed about 2 years ago and placed on metformin Hemoglobin A1c here 13.9% -Blood glucose was 400 at [facility] ED without evidence of DKA Now much improved control-continue to titrate up slowly on insulin regimen- increase Lantus to 18 units twice daily and tighten down correction factor to 22 Seen by service correspondent-patient is willing to go back on Lantus at home and metformin On discharge she will need Lantus Solostar pen, pen needles 32-gauge " to inject 1 time per day-must be generic, metformin ER, One Touch Verio test strips to check 3 times a day, and One Touch delicate lancets 33-gauge to check 3 times a day as per public health sanitarian Needs PCP follow-up Insulin and metformin as noted below. (4) Tachycardia: -Sinus tachycardia upon admission secondary to sepsis and beta-silviano withdrawal-now resolved -High-sensitivity troponin negative at 8.4 -Now greatly improved with volume resuscitation and restarting her home Toprol- XL -Follow on telemetry (5) HTN (hypertension): Blood pressures are now controlled continue home Toprol-XL -Restarted spironolactone 25 mg daily but given worsening lower extremity edema- increase to 50 Mg once daily (home dose 100 Mg once daily) Discharge meds as below. (6) Coronary artery disease: No acute issues -Continue aspirin, Plavix, statin -Lipid panel with elevated triglycerides likely from uncontrolled diabetes, LDL controlled at 100, low HDL 27 -Continue isosorbide mononitrate -Not noted in her chart, but patient likely has congestive heart failure as patient is on spironolactone, lisinopril, carvedilol which would all be therapies for congestive heart failure She has not follow-up with cardiology in years but it seems as per her med rec that cardiology is prescribing several medications although she has been noncompliant -Continue spironolactone as well and increased dose to 50 mg daily -Check echocardiogram -Patient wishes to establish care with a [facility] internet database specialist-I have asked nurse navigator to arrange this (7) Hypercholesteremia: -Continue statin Lipid panel as above (8) Restless leg: Continue home Mirapex (9) CHF (congestive heart failure): Possibly HFrEF? No previous records Check echocardiogram Needs to establish follow-up with cardiology again as an outpatient-she would like to get established without any cardiology-this will be arranged by our nurse navigator (10) Lumbago: Chronic Tylenol as needed Plan DVT prophylaxis-heparin SQ during hospital stay. Total Time Total Time Spent Total Time Spent (In Minutes): 35 Discharge Plan Discharge Items Patient Disposition: Home - Self-Care Reason For Visit: SEPSIS Discharge Diagnosis: sepsis Activity: Resume your previous activity Non-emergency contact: Primary Care Provider Call non-emergency contact if: you have any medication questions Follow-up/Referrals: Keyshawn Live [Primary Care Provider] - 05/08/23 1:30 pm (PCP follow up with P/A Akilah Cook @ 1:30pm) Diet: Carb Consistent or DM2 and Low Sodium (2gm) Addtl Attending Provider Instructions: recommend close followup with your pcp in 1 week. Recommend to take your metformin on a full stomach to limit side effects. Take your first antibiotic (cefdinir this evening) Pending Studies at Discharge: No Stand-Alone Forms: [facility], Smoking Cessation Medications and DC Order Prescriptions: New isosorbide mononitrate 60 mg Tablet Extended Release 24 Hr 120 mg PO DAILY Qty: 0 0RF pantoprazole 40 mg Tablet,Delayed Release (Dr/Ec) 40 mg PO DAILY Qty: 0 0RF rosuvastatin 10 mg Tablet 10 mg PO QAM Qty: 30 0RF insulin glargine [Lantus Solostar U-100 Insulin] 100 unit/mL (3 mL) insulin pen 18 unit subcut BID Qty: 15 0RF (DME) pen needle, diabetic [Pen Needle] 32 gauge x 5/32" needle See Rx Instructions .Route Qty: 100 0RF Rx Instructions: BID metformin 500 mg tablet extended release 24 hr 500 mg PO PM Qty: 30 0RF (DME) OneTouch Verio test strips Strip See Rx Instructions .Route Qty: 100 0RF Rx Instructions: TID before meals. (DME) lancets [OneTouch Delica Plus Lancet] 33 gauge misc See Rx Instructions .Route Qty: 100 0RF Rx Instructions: TIDM cefdinir 300 mg capsule 300 mg PO BID Qty: 14 0RF Continued clopidogrel [Plavix] 75 mg tablet 75 mg PO DAILY aspirin [Adult Low Dose Aspirin] 81 mg tablet,delayed release (DR/EC) 81 mg PO DAILY pramipexole [Mirapex] 0.25 mg tablet 0.375 mg PO BID metoprolol succinate 200 mg tablet extended release 24 hr 200 mg PO QAM Changed spironolactone 100 mg tablet 50 mg PO QAM Qty: 30 0RF Discharge Orders: Discharge Order (Routine); Ordered 04/26/23 Ordered By: Tomás Madera Admission Data Admit Date/Time: 04/23/23 01:13 Attending Provider: Tomás Madera Admit Provider: Shade Nascimento Primary Care Provider: Keyshawn Live Other Interventions: Discharge Summary Assessment (RN) Last Done: 04/26/23 15:28 Coding Level of Care Code 35671 INP/OBS DISCH >30 MIN Diagnoses Sepsis A41.9 Acute metabolic encephalopathy G93.41 Uncontrolled type 2 diabetes mellitus with hyperglycemia E11.65 Tachycardia R00.0 HTN (hypertension) I10 Coronary artery disease I25.10 Hypercholesteremia E78.00 Restless leg G25.81 CHF (congestive heart failure) I50.9 Lumbago M54.5; G89.29 Back pain laterality: midline Chronicity: chronic Sciatica presence: without sciatica
--- NOTE | 2023-04-30 20:35 | Billing Data ---
Date of Service April 30, 2023 Coding Level of Care Code 77274 INT INP/OBS CARE
== END 2023-04-26 16:40 | disposition home or self-care (01) | DRG 871 ==
LOC: 2S 01:13 → SUATTDRO 01:13

== ENCOUNTER 2023-05-09 15:37 | Inpatient (IN) ==
[2023-05-09] MEDS ORDERED: SODIUM CHLORIDE 0.9% 1000ML 500 ML IV SCH (16:00)
[2023-05-09] MEDS ORDERED: SODIUM CHLORIDE 0.9% 1000ML 1,000 ML IV ONE (16:05)
[2023-05-09] MEDS ORDERED: ACETAMINOPHEN 500 MG TAB PO STA (16:05)
--- NOTE | 2023-05-09 16:07 | Emergency Department Note ---
Impression & Plan Fever ADMIT ED Provider Note HPI: The patient is a 67-year-old female with history of CHF, coronary artery disease, type 2 diabetes, presents emergency department with fever and myalgias in the lower extremities. Patient's at the bedside is serving as the primary historian. He states that the patient has not been feeling well over the past 3 days and then seemed to acutely worsen today. She has had some mild confusion. She is complained of pain in her back and lower extremities. Patient did have a recent inpatient admission for sepsis secondary to urinary tract infection. On arrival here to the ED the patient is febrile at 38.3, she is with heart rate at 97, she is saturating well on room air on arrival. On my initial assessment the patient does not have any focal deficits, she answers most my questions appropriately, she is oriented to place but not time. ROS: - Per HPI Differential Diagnosis: COVID-19 infection, influenza A infection, urinary tract infection/sepsis, pyelonephritis, Lyme disease, Anaplasma, acute bacterial pneumonia, viral syndrome, bacterial meningitis, viral meningitis, amongst other potential pathologies. *Outpatient medications and allergy history reviewed. *Pertinent external medical records reviewed. PE: General: Alert, oriented to place but not year HEENT: Normocephalic, trachea midline, there is full range of motion of the cervical spine appreciated without limitation/pain Eyes: Extraocular eye movement is intact, no scleral erythema Pulmonary: Clear to auscultation bilaterally, no wheezing Cardio: Regular rate and rhythm GI: Abdomen is soft to palpation : No suprapubic tenderness MSK: No evidence of trauma or malformation of the extremities, no edema Skin: No evidence of rash Neuro: Alert, no focal deficits Psychiatric: Cooperative cardiac monitor: (As interpreted by myself): - An order was placed for continuous cardiac monitoring - Patient was noted to be in sinus rhythm with a rate of 110 EKG: (As interpreted by myself): Rate: 113 Rhythm: Sinus tachycardia Intervals: Within normal limits ST changes: No ST elevation Time: 1601 Interventions provided in ED: -IV fluid bolus, IV vancomycin, IV ceftriaxone, Tylenol Medical Decision Making: Shortly after the patient arrived IV was established and lab work obtained because 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 Lab work showed no leukocytosis, hemoglobin is normal, platelet count is slightly high at 411, venous blood gas shows normal pH, CMP shows mild hyponatremia 135, mild hypomagnesemia at 1.6, this was ordered for oral repletion. Troponin is negative, EKG shows sinus tachycardia with a rate of 113. Patient denies any chest pain or shortness of breath, denies any headache. Procalcitonin is fairly low at 0.14, urinalysis does not show any convincing evidence of infection as it is urine nitrite and 1+ leukocyte Estrace with some pyuria and evidence of contamination. CT imaging of the head was obtained and is without acute findings. CT imaging the abdomen pelvis with IV contrast was obtained and shows no evidence of pyelonephritis. Lyme testing and Anaplasma testing are both negative, viral panel testing is also negative. Unclear source for the patient's fever and mild confusion earlier today, she denies any headache and appears improved on my reassessment. Given the unclear source for fever at this time with mild confusion, although improved, I do think the patient should have a CSF analysis. I discussed this with the patient, she tells me that she has a history of lumbar laminectomy in the distant past. Given her obesity and scar tissue over the lumbar area from previous surgery as well as laminectomy, I feel be most appropriate to have the patient admitted and interventional radiology can perform procedure tomorrow. Patient was started prophylactically on vancomycin and ceftriaxone. I did discuss this with the on-call radiologist, Dr. Metz, he states they will be available tomorrow morning and either himself or Rodrigue Lindsay PA-C, could perform the procedure. On my reassessment the patient appears much improved, she states she is feeling better, she is alert and oriented now to time, self, and place. I discussed all the above findings and plan with the patient and her at the bedside and they are in agreement for admission and to undergo LP tomorrow with radiology. I discussed plan for admission with the on-call hospitalist, Dr. Magallanes, who agreed to accept the patient for further management. Patient was admitted in stable condition. Consultants: Hospitalist, Dr. Magallanes Disposition discussion held by myself with: Patient and at bedside Diagnosis: 1. Fever of unknown origin 2. Confusion, mild, acute Disposition: Admission Ramirez Bryan DO Emergency Medicine Past Med/Surg History Medical History (Updated 05/09/23 @ 20:15 by Ramirez Bryan DO) CHF (congestive heart failure) Coronary artery disease HTN (hypertension) Hypercholesteremia Lumbago Lumbar facet joint syndrome Restless leg Spinal stenosis, lumbar region without neurogenic claudication Surgical History (Updated 07/06/20 @ 12:31 by Tabitha Mcclendon DO) History of lumbar surgery L4-5 discectomy Social History (Updated 07/06/20 @ 11:01 by Pina Perera RN) Smoking Status: Unknown if ever smoked Hx Alcohol Use: No Hx Substance Use: No Preferred Language: Sami Communication Ability: Effective Visual Impairment: Limited Hearing Ability: Hard of Hearing Mac Artist Required: No Beliefs That Will Affect Care: None marital status: Current Living Situation: Spouse current occupational status: retired Feels Safe at Home: Yes Assistive Devices: None Allergies Allergies Allergy/AdvReac Type Severity Reaction Status Date / Time bee venom protein (honey bee) Allergy Verified 05/09/23 18:48 Home Meds Home Medications Medication Instructions Recorded Confirmed aspirin 81 mg tablet,delayed 81 mg PO DAILY 07/06/20 05/09/23 release (Adult Low Dose Aspirin) clopidogrel 75 mg tablet (Plavix) 75 mg PO DAILY 07/06/20 05/09/23 pramipexole 0.25 mg tablet 0.5 mg PO BID 07/06/20 05/09/23 (Mirapex) metoprolol succinate 200 mg 200 mg PO PM 04/23/23 05/09/23 tablet,extended release 24 hr magnesium oxide 500 mg capsule 500 mg PO DAILY 05/09/23 05/09/23 Previous Rx's Medication Instructions Recorded blood sugar diagnostic (OneTouch #100 ea 04/26/23 Verio test strips) insulin glargine 100 unit/mL (3 18 unit (0.18 mL) subcut BID #15 mL 04/26/23 mL) subcutaneous pen (Lantus Solostar U-100 Insulin) lancets 33 gauge (OneTouch Delica #100 ea 04/26/23 Plus Lancet) metformin 500 mg tablet,extended 500 mg PO PM #30 tabs 04/26/23 release 24 hr pantoprazole 40 mg tablet,delayed 40 mg PO DAILY #0 tabs 04/26/23 release pen needle, diabetic 32 gauge x #100 ea 04/26/2332" (Pen Needle) rosuvastatin 10 mg tablet 10 mg PO QAM #30 tabs 04/26/23 spironolactone 100 mg tablet 50 mg PO QAM #30 tabs 04/26/23 Results & Data (ED) Vital Signs Vital Signs - 24 hr 05/09/23 15:40 05/09/23 15:57 05/09/23 15:57 Temperature 38.3 C H Temperature Source Oral Pulse Rate 97 H Pulse Rate from SpO2 Sensor Respiratory Rate 20 Respiratory Effort / Characteristics Non-Labored Respiratory Depth Normal Blood Pressure 158/77 H Blood Pressure Mean 104 Pulse Oximetry 98 96 96 Oxygen Delivery Method Room Air Room Air Room Air Oxygen Flow Rate 0 Sepsis Recent Fever Within 48 Hours No Sepsis New/Unexplained Change in Mental Status Yes Sepsis Action Taken by Nursing No Action Required 05/09/23 17:31 05/09/23 15:53 05/09/23 15:59 Temperature 37.8 C H Temperature Source Oral Pulse Rate 123 H 113 H Pulse Rate from SpO2 Sensor 122 H 114 H Respiratory Rate 18 23 Respiratory Effort / Characteristics Respiratory Depth Blood Pressure Blood Pressure Mean Pulse Oximetry 95 95 Oxygen Delivery Method Oxygen Flow Rate Sepsis Recent Fever Within 48 Hours Sepsis New/Unexplained Change in Mental Status Sepsis Action Taken by Nursing 05/09/23 15:59 05/09/23 16:00 05/09/23 16:00 Temperature Temperature Source Pulse Rate 111 H Pulse Rate from SpO2 Sensor Respiratory Rate 29 H Respiratory Effort / Characteristics Respiratory Depth Blood Pressure 158/92 H 159/91 H Blood Pressure Mean 104 107 Pulse Oximetry Oxygen Delivery Method Oxygen Flow Rate Sepsis Recent Fever Within 48 Hours Sepsis New/Unexplained Change in Mental Status Sepsis Action Taken by Nursing 05/09/23 16:15 05/09/23 16:15 05/09/23 16:30 Temperature Temperature Source Pulse Rate 117 H Pulse Rate from SpO2 Sensor 116 H Respiratory Rate 16 Respiratory Effort / Characteristics Respiratory Depth Blood Pressure 163/90 H 148/97 H Blood Pressure Mean 103 127 Pulse Oximetry 95 Oxygen Delivery Method Oxygen Flow Rate Sepsis Recent Fever Within 48 Hours Sepsis New/Unexplained Change in Mental Status Sepsis Action Taken by Nursing 05/09/23 16:30 05/09/23 16:45 05/09/23 17:05 Temperature Temperature Source Pulse Rate 108 H 112 H 115 H Pulse Rate from SpO2 Sensor 110 H 110 H 115 H Respiratory Rate 24 28 H 16 Respiratory Effort / Characteristics Respiratory Depth Blood Pressure Blood Pressure Mean Pulse Oximetry 96 94 93 Oxygen Delivery Method Oxygen Flow Rate Sepsis Recent Fever Within 48 Hours Sepsis New/Unexplained Change in Mental Status Sepsis Action Taken by Nursing 05/09/23 17:15 05/09/23 17:30 05/09/23 17:30 Temperature Temperature Source Pulse Rate 108 H 113 H Pulse Rate from SpO2 Sensor 109 H 114 H Respiratory Rate 20 20 Respiratory Effort / Characteristics Respiratory Depth Blood Pressure 147/79 H Blood Pressure Mean 93 Pulse Oximetry 92 95 Oxygen Delivery Method Room Air Oxygen Flow Rate Sepsis Recent Fever Within 48 Hours Sepsis New/Unexplained Change in Mental Status Sepsis Action Taken by Nursing 05/09/23 17:45 05/09/23 17:45 05/09/23 18:00 Temperature Temperature Source Pulse Rate 111 H Pulse Rate from SpO2 Sensor 112 H Respiratory Rate 16 Respiratory Effort / Characteristics Respiratory Depth Blood Pressure 157/80 H 137/70 Blood Pressure Mean 107 93 Pulse Oximetry 95 Oxygen Delivery Method Oxygen Flow Rate Sepsis Recent Fever Within 48 Hours Sepsis New/Unexplained Change in Mental Status Sepsis Action Taken by Nursing 05/09/23 18:00 05/09/23 18:15 05/09/23 18:15 Temperature Temperature Source Pulse Rate 115 H 114 H Pulse Rate from SpO2 Sensor 114 H 112 H Respiratory Rate 20 14 Respiratory Effort / Characteristics Respiratory Depth Blood Pressure 131/86 Blood Pressure Mean 102 Pulse Oximetry 95 94 Oxygen Delivery Method Oxygen Flow Rate Sepsis Recent Fever Within 48 Hours Sepsis New/Unexplained Change in Mental Status Sepsis Action Taken by Nursing 05/09/23 18:30 05/09/23 18:30 05/09/23 18:45 Temperature Temperature Source Pulse Rate 112 H 108 H Pulse Rate from SpO2 Sensor 111 H 107 H Respiratory Rate 17 14 Respiratory Effort / Characteristics Respiratory Depth Blood Pressure 144/83 H Blood Pressure Mean 93 Pulse Oximetry 98 97 Oxygen Delivery Method Room Air Oxygen Flow Rate Sepsis Recent Fever Within 48 Hours Sepsis New/Unexplained Change in Mental Status Sepsis Action Taken by Nursing 05/09/23 18:46 05/09/23 18:48 05/09/23 18:48 Temperature Temperature Source Pulse Rate 109 H 114 H Pulse Rate from SpO2 Sensor 107 H 113 H Respiratory Rate 15 17 Respiratory Effort / Characteristics Respiratory Depth Blood Pressure 140/86 Blood Pressure Mean 93 Pulse Oximetry 97 Oxygen Delivery Method Room Air Oxygen Flow Rate Sepsis Recent Fever Within 48 Hours Sepsis New/Unexplained Change in Mental Status Sepsis Action Taken by Nursing 05/09/23 19:00 Temperature 36.9 C Temperature Source Oral Pulse Rate Pulse Rate from SpO2 Sensor Respiratory Rate Respiratory Effort / Characteristics Respiratory Depth Blood Pressure Blood Pressure Mean Pulse Oximetry Oxygen Delivery Method Oxygen Flow Rate Sepsis Recent Fever Within 48 Hours Sepsis New/Unexplained Change in Mental Status Sepsis Action Taken by Nursing Laboratory Data 05/09/23 16:48 05/09/23 16:48 Lab Results 05/09/23 05/09/23 05/09/23 Range/Units 16:23 16:48 16:48 WBC 6.63 (4.8-10.8) K/ul RBC 4.75 (4.20-5.40) M/uL Hgb 12.7 (12.0-16.0) g/dl Hct 39.0 (37.0-47.0) % MCV 82.1 (80.0-100.0) fL MCH 26.7 (25.0-34.0) pg MCHC 32.6 (32.0-36.0) g/dL RDW Std Deviation 41.5 (36.4-46.3) fL RDW Coeff of Marshall 14.1 (11.5-14.5) % Plt Count 411 H (130-400) K/uL MPV 9.4 (9.4-12.4) fL Immature Gran % (Auto) 0.3 % Neut % (Auto) 75.7 % Lymph % (Auto) 15.2 % Williams % (Auto) 7.1 % Eos % (Auto) 0.9 % Baso % (Auto) 0.8 % Neut # (Auto) 5.02 (1.40-6.50) K/uL Lymph # (Auto) 1.01 L (1.2-3.4) K/uL Williams # (Auto) 0.47 (0.11-0.59) K/uL Eos # (Auto) 0.06 (0-0.50) K/uL Baso # (Auto) 0.05 (0-0.2) K/uL Immature Gran # (Auto) 0.02 (0.01-0.20) K/uL PT (9.0-12.0) Seconds INR (0.9-1.1) VBG pH (7.36-7.41) VBG pCO2 (38-50) mmHg VBG pO2 mmHg VBG HCO3 mmol/L VBG O2 Saturation % VBG Base Excess mEq/L Sodium 135 L (136-145) mmol/L Potassium 3.9 (3.5-5.1) mmol/L Chloride 101 (98-107) mmol/L Carbon Dioxide 24 (21-32) mmol/L Anion Gap 10 (3-11) BUN 21 (6-23) mg/dl Creatinine 1.04 (0.6-1.2) mg/dl Est Cr Clr Drug Dosing Not Reportable Est GFR ( Amer) 65.3 ml/min Est GFR (Non-Af Amer) 56.3 ml/min BUN/Creatinine Ratio 20.2 H (10-20) Glucose 118 H (70-99(Fasting)) mg/dl Lactate (0.4-2.0) mmol/L Calcium 9.7 (8.6-10.3) mg/dl Magnesium 1.6 L (1.7-2.4) mg/dl Total Bilirubin 0.5 (0.2-1.0) mg/dl Direct Bilirubin 0.0 (0-0.2) mg/dl AST 19 (13-39) U/L ALT 18 (7-52) U/L Alkaline Phosphatase 76 (34-104) U/L Troponin I High Sens 3.8 (0-14) pg/ml Total Protein 8.1 (6.0-8.3) gm/dl Albumin 4.0 (3.4-5.0) gm/dl Procalcitonin (0-0.5) ng/ml Urine Color Urine Appearance (Clear) Urine pH (4.5-7.5) Ur Specific Center (1.000-1.030) Urine Protein (Negative) Urine Glucose (UA) (Negative) Urine Ketones (Negative) Urine Blood (Negative) Urine Nitrite (Negative) Urine Bilirubin (Negative) Urine Urobilinogen (Negative) Ur Leukocyte Esterase (Negative) Urine WBC (Auto) (0-5) /hpf Urine RBC (Auto) (0-4) /hpf U Hyaline Cast (Auto) (0-5) /lpf U Epithel Cells (Auto) (0-5) /lpf Urine Bacteria (Auto) (Negative) Adenovirus (PCR) Not Detected (NotDetected) Anaplasma Smear Babesia Smear B. pertussis DNA (PCR) Not Detected (NotDetected) B.parapertussis DNA PCR Not Detected (NotDetected) Lyme Disease IgG Ab (Negative) Lyme Disease IgM Ab (Negative) C. pneumoniae DNA (PCR) Not Detected (NotDetected) Coronavirus OC43 (PCR) Not Detected (NotDetected) Coronavirus HKU1 (PCR) Not Detected (NotDetected) Coronavirus 229E (PCR) Not Detected (NotDetected) SARS-CoV-2 (PCR) Not Detected (NotDetected) Coronavirus NL63 (PCR) Not Detected (NotDetected) Human Metapneumovir PCR Not Detected (NotDetected) Influenza Type A (PCR) Not Detected (NotDetected) Influenza Type B (PCR) Not Detected (NotDetected) M. pneumoniae (PCR) Not Detected (NotDetected) Parainfluenza 1 (PCR) Not Detected (NotDetected) Parainfluenza 2 (PCR) Not Detected (NotDetected) Parainfluenza 3 (PCR) Not Detected (NotDetected) Parainfluenza 4 (PCR) Not Detected (NotDetected) RSV (PCR) Not Detected (NotDetected) Entero/Rhino (PCR) Not Detected (NotDetected) 05/09/23 05/09/23 05/09/23 Range/Units 16:48 16:48 16:48 WBC (4.8-10.8) K/ul RBC (4.20-5.40) M/uL Hgb (12.0-16.0) g/dl Hct (37.0-47.0) % MCV (80.0-100.0) fL MCH (25.0-34.0) pg MCHC (32.0-36.0) g/dL RDW Std Deviation (36.4-46.3) fL RDW Coeff of Marshall (11.5-14.5) % Plt Count (130-400) K/uL MPV (9.4-12.4) fL Immature Gran % (Auto) % Neut % (Auto) % Lymph % (Auto) % Williams % (Auto) % Eos % (Auto) % Baso % (Auto) % Neut # (Auto) (1.40-6.50) K/uL Lymph # (Auto) (1.2-3.4) K/uL Williams # (Auto) (0.11-0.59) K/uL Eos # (Auto) (0-0.50) K/uL Baso # (Auto) (0-0.2) K/uL Immature Gran # (Auto) (0.01-0.20) K/uL PT 12.1 H (9.0-12.0) Seconds INR 1.1 (0.9-1.1) VBG pH (7.36-7.41) VBG pCO2 (38-50) mmHg VBG pO2 mmHg VBG HCO3 mmol/L VBG O2 Saturation % VBG Base Excess mEq/L Sodium (136-145) mmol/L Potassium (3.5-5.1) mmol/L Chloride (98-107) mmol/L Carbon Dioxide (21-32) mmol/L Anion Gap (3-11) BUN (6-23) mg/dl Creatinine (0.6-1.2) mg/dl Est Cr Clr Drug Dosing Est GFR ( Amer) ml/min Est GFR (Non-Af Amer) ml/min BUN/Creatinine Ratio (10-20) Glucose (70-99(Fasting)) mg/dl Lactate 1.7 (0.4-2.0) mmol/L Calcium (8.6-10.3) mg/dl Magnesium (1.7-2.4) mg/dl Total Bilirubin (0.2-1.0) mg/dl Direct Bilirubin (0-0.2) mg/dl AST (13-39) U/L ALT (7-52) U/L Alkaline Phosphatase (34-104) U/L Troponin I High Sens (0-14) pg/ml Total Protein (6.0-8.3) gm/dl Albumin (3.4-5.0) gm/dl Procalcitonin 0.14 (0-0.5) ng/ml Urine Color Urine Appearance (Clear) Urine pH (4.5-7.5) Ur Specific Center (1.000-1.030) Urine Protein (Negative) Urine Glucose (UA) (Negative) Urine Ketones (Negative) Urine Blood (Negative) Urine Nitrite (Negative) Urine Bilirubin (Negative) Urine Urobilinogen (Negative) Ur Leukocyte Esterase (Negative) Urine WBC (Auto) (0-5) /hpf Urine RBC (Auto) (0-4) /hpf U Hyaline Cast (Auto) (0-5) /lpf U Epithel Cells (Auto) (0-5) /lpf Urine Bacteria (Auto) (Negative) Adenovirus (PCR) (NotDetected) Anaplasma Smear Babesia Smear B. pertussis DNA (PCR) (NotDetected) B.parapertussis DNA PCR (NotDetected) Lyme Disease IgG Ab Negative (Negative) Lyme Disease IgM Ab Negative (Negative) C. pneumoniae DNA (PCR) (NotDetected) Coronavirus OC43 (PCR) (NotDetected) Coronavirus HKU1 (PCR) (NotDetected) Coronavirus 229E (PCR) (NotDetected) SARS-CoV-2 (PCR) (NotDetected) Coronavirus NL63 (PCR) (NotDetected) Human Metapneumovir PCR (NotDetected) Influenza Type A (PCR) (NotDetected) Influenza Type B (PCR) (NotDetected) M. pneumoniae (PCR) (NotDetected) Parainfluenza 1 (PCR) (NotDetected) Parainfluenza 2 (PCR) (NotDetected) Parainfluenza 3 (PCR) (NotDetected) Parainfluenza 4 (PCR) (NotDetected) RSV (PCR) (NotDetected) Entero/Rhino (PCR) (NotDetected) 05/09/23 05/09/23 05/09/23 Range/Units 16:48 16:48 17:45 WBC (4.8-10.8) K/ul RBC (4.20-5.40) M/uL Hgb (12.0-16.0) g/dl Hct (37.0-47.0) % MCV (80.0-100.0) fL MCH (25.0-34.0) pg MCHC (32.0-36.0) g/dL RDW Std Deviation (36.4-46.3) fL RDW Coeff of Marshall (11.5-14.5) % Plt Count (130-400) K/uL MPV (9.4-12.4) fL Immature Gran % (Auto) % Neut % (Auto) % Lymph % (Auto) % Williams % (Auto) % Eos % (Auto) % Baso % (Auto) % Neut # (Auto) (1.40-6.50) K/uL Lymph # (Auto) (1.2-3.4) K/uL Williams # (Auto) (0.11-0.59) K/uL Eos # (Auto) (0-0.50) K/uL Baso # (Auto) (0-0.2) K/uL Immature Gran # (Auto) (0.01-0.20) K/uL PT (9.0-12.0) Seconds INR (0.9-1.1) VBG pH 7.41 (7.36-7.41) VBG pCO2 45 (38-50) mmHg VBG pO2 19 mmHg VBG HCO3 29 mmol/L VBG O2 Saturation < 60.0 % VBG Base Excess 3.2 mEq/L Sodium (136-145) mmol/L Potassium (3.5-5.1) mmol/L Chloride (98-107) mmol/L Carbon Dioxide (21-32) mmol/L Anion Gap (3-11) BUN (6-23) mg/dl Creatinine (0.6-1.2) mg/dl Est Cr Clr Drug Dosing Est GFR ( Amer) ml/min Est GFR (Non-Af Amer) ml/min BUN/Creatinine Ratio (10-20) Glucose (70-99(Fasting)) mg/dl Lactate (0.4-2.0) mmol/L Calcium (8.6-10.3) mg/dl Magnesium (1.7-2.4) mg/dl Total Bilirubin (0.2-1.0) mg/dl Direct Bilirubin (0-0.2) mg/dl AST (13-39) U/L ALT (7-52) U/L Alkaline Phosphatase (34-104) U/L Troponin I High Sens (0-14) pg/ml Total Protein (6.0-8.3) gm/dl Albumin (3.4-5.0) gm/dl Procalcitonin (0-0.5) ng/ml Urine Color Yellow Urine Appearance Clear (Clear) Urine pH 5.5 (4.5-7.5) Ur Specific Center 1.018 (1.000-1.030) Urine Protein Trace H (Negative) Urine Glucose (UA) Negative (Negative) Urine Ketones Negative (Negative) Urine Blood Negative (Negative) Urine Nitrite Negative (Negative) Urine Bilirubin Negative (Negative) Urine Urobilinogen Negative (Negative) Ur Leukocyte Esterase 1+ H (Negative) Urine WBC (Auto) 10-30 H (0-5) /hpf Urine RBC (Auto) 0-4 (0-4) /hpf U Hyaline Cast (Auto) 1-5 (0-5) /lpf U Epithel Cells (Auto) >30 H (0-5) /lpf Urine Bacteria (Auto) Negative (Negative) Adenovirus (PCR) (NotDetected) Anaplasma Smear See Comment Babesia Smear See Comment B. pertussis DNA (PCR) (NotDetected) B.parapertussis DNA PCR (NotDetected) Lyme Disease IgG Ab (Negative) Lyme Disease IgM Ab (Negative) C. pneumoniae DNA (PCR) (NotDetected) Coronavirus OC43 (PCR) (NotDetected) Coronavirus HKU1 (PCR) (NotDetected) Coronavirus 229E (PCR) (NotDetected) SARS-CoV-2 (PCR) (NotDetected) Coronavirus NL63 (PCR) (NotDetected) Human Metapneumovir PCR (NotDetected) Influenza Type A (PCR) (NotDetected) Influenza Type B (PCR) (NotDetected) M. pneumoniae (PCR) (NotDetected) Parainfluenza 1 (PCR) (NotDetected) Parainfluenza 2 (PCR) (NotDetected) Parainfluenza 3 (PCR) (NotDetected) Parainfluenza 4 (PCR) (NotDetected) RSV (PCR) (NotDetected) Entero/Rhino (PCR) (NotDetected) Administered Medications Vancomycin HCl 1,750 mg/ (Sodium Chloride) 535 mls @ 200 mls/hr IV NOW ONE Stop: 05/09/23 21:36 Last Admin: 05/09/23 19:35 Dose: 200 mls/hr Documented By: MWS Discontinued Medications Acetaminophen (Acetaminophen 500 Mg Tab) 1,000 mg PO NOW STA Stop: 05/09/23 16:06 Last Admin: 05/09/23 16:21 Dose: 1,000 mg Documented By: TIMA Sodium Chloride (Nss 1000ml) 500 mls @ 999 mls/hr IV .Q31M OLE Stop: 05/09/23 16:30 Last Infusion: 05/09/23 18:29 Dose: 0 mls/hr Documented By: Admin: 05/09/23 16:19 Dose: 999 mls/hr Documented By: TIMA Sodium Chloride (Nss 1000ml) 1,000 mls @ 999 mls/hr IV .Q1H1M ONE Stop: 05/09/23 17:05 Last Infusion: 05/09/23 18:51 Dose: 0 mls/hr Documented By: Admin: 05/09/23 16:18 Dose: 999 mls/hr Documented By: TIMA Sodium Chloride (Nss 1000ml) 2,000 mls @ 999 mls/hr IV .Q2H1M ONE Stop: 05/09/23 20:08 Last Admin: 05/09/23 18:51 Dose: 999 mls/hr Documented By: TIMA Ceftriaxone Sodium (Rocephin) 2,000 mg in 70 mls @ 140 mls/hr IV NOW STA Stop: 05/09/23 19:25 Last Infusion: 05/09/23 19:40 Dose: 0 mls/hr Documented By: Admin: 05/09/23 19:09 Dose: 140 mls/hr Documented By: RAMO Ioversol (Optiray 320 100ml) 87 ml IV ONCE ONE Stop: 05/09/23 19:26 Last Admin: 05/09/23 19:25 Dose: 87 ml Documented By: DIANDRA Pramipexole Dihydrochloride (Pramipexole Dihydrochlo 0.25 Mg Tab) 0.25 mg PO ONCE ONE Stop: 05/09/23 19:15 Last Admin: 05/09/23 19:35 Dose: 0.25 mg Documented By: RAMO Imaging Data Radiologist's Impression: Chest X-Ray 05/09/23 15:57 SINGLE VIEW CHEST CLINICAL HISTORY: Sepsis. FINDINGS: An AP, portable, upright chest radiograph is obtained. No prior studies are available for comparison at the time of dictation. The cardiomediastinal silhouette is unremarkable noting atherosclerotic calcification of the thoracic aorta. There is mild bibasilar scarring/atelectasis. No airspace consolidation or large pleural effusion is identified. No pneumothorax is seen. The skeletal structures are osteopenic. The bony thorax is grossly intact. Bulky calcific tendinopathy is noted in the left shoulder. IMPRESSION: No active disease in the chest. ACT 112: Negative or not required by law. Electronically signed by: Bereket Metz M.D. 05/09/2023 5:[address] 05/09/23 16:05 CT SCAN OF THE BRAIN WITHOUT IV CONTRAST CLINICAL HISTORY: Change in mental status. COMPARISON STUDY: MRI of the brain dated 04/23/2023. TECHNIQUE: Unenhanced axial CT scan of the brain is performed from the vertex to the skull base. A dose lowering technique was utilized adhering to the principles of ALARA. CT DOSE: 625.80 mGy.cm FINDINGS: Brain parenchyma: There is age-related involutional change noting mild subcortical and periventricular microangiopathic disease. There is no hemorrhage, mass effect, or evidence of acute territorial ischemia by CT criteria. Walters-white matter differentiation is preserved. No extra-axial fluid collection is seen. Ventricles, sulci, cisterns: Prominent secondary to involutional change. Intracranial vasculature: There is atherosclerotic calcification of the cavernous carotid and vertebral arteries. Calvarium: Unremarkable. Sinuses and mastoids: The visualized paranasal sinuses are clear. The mastoid air cells are well pneumatized. Orbits: The bony orbits are grossly intact. IMPRESSION: There is no hemorrhage, mass effect, or evidence of acute territorial ischemia by CT criteria. ACT 112: Negative or not required by law. Electronically signed by: Bereket Metz M.D. 05/09/2023 5:07 PM Abdomen/Pelvis CT 05/09/23 18:52 Exam(s): CT ABDOMEN + PELVIS With Contrast IV Amt: 87 ml optiray 320 EXAM: CT Abdomen and Pelvis With Intravenous Contrast CLINICAL HISTORY: Reason for exam: fever, recent UTI, eval for pyelo. TECHNIQUE: Axial computed tomography images of the abdomen and pelvis with intravenous contrast. CTDI is 25.9 mGy and DLP is 1139.32 mGy-cm. Automated exposure control was utilized for the study. A dose lowering technique was utilized adhering to the principles of ALARA. CONTRAST: Patient received 87 ml optiray 320 of IV contrast COMPARISON: No relevant prior studies available. FINDINGS: Lung bases: Unremarkable. No mass. No consolidation. ABDOMEN: Liver: Unremarkable. No mass. Gallbladder and bile ducts: Unremarkable. No calcified stones. No ductal dilation. Pancreas: Unremarkable. No mass. No ductal dilation. Spleen: Unremarkable. No splenomegaly. Adrenals: Unremarkable. No mass. Kidneys and ureters: no hydronephrosis. No renal, ureteral, or bladder calculi. Both kidneys opacify with contrast in a normal symmetric fashion. No significant sara-ureteral or perirenal inflammatory changes. Stomach and bowel: Unremarkable. No obstruction. No mucosal thickening. PELVIS: Appendix: No findings to suggest acute appendicitis. Bladder: Urinary bladder is moderately distended. Reproductive: Unremarkable as visualized. ABDOMEN and PELVIS: Intraperitoneal space: Unremarkable. No free air. No significant fluid collection. Bones/joints: No acute fracture. No dislocation. Soft tissues: Unremarkable. Vasculature: Diffuse vascular calcifications of the abdominal aorta. No abdominal aortic aneurysm. Lymph nodes: Unremarkable. No enlarged lymph nodes. IMPRESSION: 1. Unremarkable exam. 2. Specifically no CT evidence to suggest pyelonephritis Electronically signed by: Justus Salgado MD 05/09/23 19:39 PM Discharge Plan Visit Data Chief Complaint: Weakness Stated Complaint: WEAKNESS, FATIGUE ED Provider: Ramirez Bryan Discharge Problem: Fever Forms Stand Alone Forms: My [facility] [place] Prescriptions Prescriptions: No Action clopidogrel [Plavix] 75 mg tablet 75 mg PO DAILY aspirin [Adult Low Dose Aspirin] 81 mg tablet,delayed release (DR/EC) 81 mg PO DAILY pramipexole [Mirapex] 0.25 mg tablet 0.5 mg PO BID metoprolol succinate 200 mg tablet extended release 24 hr 200 mg PO PM pantoprazole 40 mg Tablet,Delayed Release (Dr/Ec) 40 mg PO DAILY Qty: 0 0RF rosuvastatin 10 mg Tablet 10 mg PO QAM Qty: 30 0RF insulin glargine [Lantus Solostar U-100 Insulin] 100 unit/mL (3 mL) insulin pen 18 unit subcut BID Qty: 15 0RF (DME) pen needle, diabetic [Pen Needle] 32 gauge x 5/32" needle See Rx Instructions .Route Qty: 100 0RF Rx Instructions: BID metformin 500 mg tablet extended release 24 hr 500 mg PO PM Qty: 30 0RF (DME) OneTouch Verio test strips Strip See Rx Instructions .Route Qty: 100 0RF Rx Instructions: TID before meals. (DME) lancets [OneTouch Delica Plus Lancet] 33 gauge misc See Rx Instructions .Route Qty: 100 0RF Rx Instructions: TIDM spironolactone 100 mg tablet 50 mg PO QAM Qty: 30 0RF magnesium oxide 500 mg capsule 500 mg PO DAILY Referrals Referrals: Keyshawn Liev [Outside Practitioners] -
[2023-05-09 17:07] LABS: Base Excess VBG 3.2 mEq/L; HCO3 VBG 29 mmol/L; Oxygen Saturation VBG < 60.0 %; PCO2 VBG 45 mmHg (38-50); PO2 VBG 19 mmHg; pH VBG 7.41 (7.36-7.41)
--- NOTE | 2023-05-09 17:10 | CT Scan Report ---
CT SCAN OF THE BRAIN WITHOUT IV CONTRAST CLINICAL HISTORY: Change in mental status. COMPARISON STUDY: MRI of the brain dated 04/23/2023. TECHNIQUE: Unenhanced axial CT scan of the brain is performed from the vertex to the skull base. A do se lowering technique was utilized adhering to the principles of ALARA. CT DOSE: 625.80 mGy.cm FINDINGS: Brain parenchyma: There is age-related involutional change noting mild subcortical and periventricula r microangiopathic disease. There is no hemorrhage, mass effect, or evidence of acute territorial isc hemia by CT criteria. Walters-white matter differentiation is preserved. No extra-axial fluid collection is seen. Ventricles, sulci, cisterns: Prominent secondary to involutional change. Intracranial vasculature: There is atherosclerotic calcification of the cavernous carotid and vertebr al arteries. Calvarium: Unremarkable. Sinuses and mastoids: The visualized paranasal sinuses are clear. The mastoid air cells are well pneu matized. Orbits: The bony orbits are grossly intact. IMPRESSION: There is no hemorrhage, mass effect, or evidence of acute territorial ischemia by CT noel bocanegra. ACT 112: Negative or not required by law. Electronically signed by: Bereket Metz M.D. 05/09/2023 5:07 PM
--- NOTE | 2023-05-09 17:14 | XRay Report ---
SINGLE VIEW CHEST CLINICAL HISTORY: Sepsis. FINDINGS: An AP, portable, upright chest radiograph is obtained. No prior studies are available for c omparison at the time of dictation. The cardiomediastinal silhouette is unremarkable noting atheroscl erotic calcification of the thoracic aorta. There is mild bibasilar scarring/atelectasis. No airspace consolidation or large pleural effusion is identified. No pneumothorax is seen. The skeletal structu res are osteopenic. The bony thorax is grossly intact. Bulky calcific tendinopathy is noted in the le ft shoulder. IMPRESSION: No active disease in the chest. ACT 112: Negative or not required by law. Electronically signed by: Bereket Metz M.D. 05/09/2023 5:13 PM
[2023-05-09 17:35] LABS: Adenovirus PCR Not Detected (NotDetected); Bordetella parapertussis PCR Not Detected (NotDetected); Bordetella pertussis PCR Not Detected (NotDetected); Chlamydia pneumoniae PCR Not Detected (NotDetected); Coronavirus 229E PCR Not Detected (NotDetected); Coronavirus CoV-2 (COVID19)PCR Not Detected (NotDetected); Coronavirus HKU1 PCR Not Detected (NotDetected); Coronavirus NL63 PCR Not Detected (NotDetected); Coronavirus OC43PCR Not Detected (NotDetected); Human Metapneumovirus PCR Not Detected (NotDetected); Influenza A PCR Not Detected (NotDetected); Influenza B PCR Not Detected (NotDetected); Mycoplasma pneumoniae PCR Not Detected (NotDetected); Parainfluenza Virus 1 PCR Not Detected (NotDetected); Parainfluenza Virus 2 PCR Not Detected (NotDetected); Parainfluenza Virus 3 PCR Not Detected (NotDetected); Parainfluenza Virus 4 PCR Not Detected (NotDetected); Respiratory Syncytial VirusPCR Not Detected (NotDetected); Rhinovirus/Enterovirus PCR Not Detected (NotDetected)
[2023-05-09 17:38] LABS: Basophils # (auto) 0.05 K/uL (0-0.2); Basophils % (auto) 0.8 %; Eosinophils # (auto) 0.06 K/uL (0-0.50); Eosinophils % (auto) 0.9 %; Hemoglobin 12.7 g/dl (12.0-16.0); Immature Granulocytes # (auto) 0.02 K/uL (0.01-0.20); Immature Granulocytes % (auto) 0.3 %; Lymphocytes # (auto) 1.01 K/uL (1.2-3.4); Lymphocytes % (auto) 15.2 %; Mean Corpuscular Hemoglobin 26.7 pg (25.0-34.0); Mean Corpuscular Hgb Conc 32.6 g/dL (32.0-36.0); Mean Corpuscular Volume 82.1 fL (80.0-100.0); Mean Platelet Volume 9.4 fL (9.4-12.4); Monocytes # (auto) 0.47 K/uL (0.11-0.59); Monocytes % (auto) 7.1 %; Neutrophils # (auto) 5.02 K/uL (1.40-6.50); Neutrophils % (auto) 75.7 %; Platelet Count 411 K/uL (130-400); RDW Coefficient of Variation 14.1 % (11.5-14.5); RDW Standard Deviation 41.5 fL (36.4-46.3); Red Blood Count 4.75 M/uL (4.20-5.40); White Blood Count 6.63 K/ul (4.8-10.8)
[2023-05-09 17:40] LABS: Alanine Aminotransferase 18 U/L (7-52); Alkaline Phosphatase 76 U/L (34-104); Anion Gap 10 (3-11); Aspartate Aminotransferase 19 U/L (13-39); BUN Creatinine Ratio 20.2 (10-20); Bilirubin,Total 0.5 mg/dl (0.2-1.0); Blood Urea Nitrogen 21 mg/dl (6-23); Calcium 9.7 mg/dl (8.6-10.3); Carbon Dioxide 24 mmol/L (21-32); Chloride 101 mmol/L (98-107); Est GFR (African American) 65.3 ml/min; Est GFR (Non-African American) 56.3 ml/min; Glucose 118 mg/dl (70-99(Fasting)); Magnesium 1.6 mg/dl (1.7-2.4); Potassium 3.9 mmol/L (3.5-5.1); Sodium 135 mmol/L (136-145); Total Protein 8.1 gm/dl (6.0-8.3)
[2023-05-09 17:46] LABS: Troponin I High Sensitivity 3.8 pg/ml (0-14)
[2023-05-09 17:49] LABS: INR 1.1 (0.9-1.1); Prothrombin Time 12.1 Seconds (9.0-12.0)
[2023-05-09 18:00] LABS: Procalcitonin 0.14 ng/ml (0-0.5)
[2023-05-09 18:06] LABS: Lyme Ab IgG w/WB Rflx Negative (Negative); Lyme Ab IgM w/WB Rflx Negative (Negative)
--- NOTE | 2023-05-09 18:06 | Electrocardiogram Report ---
Test Reason : Blood Pressure : / mmHG Vent. Rate : 113 BPM Atrial Rate : 113 BPM P-R Int : 158 ms QRS Dur : 072 ms QT Int : 294 ms P-R-T Axes : 035 009 012 degrees QTc Int : 403 ms Sinus tachycardia Otherwise normal ECG When compared with ECG of 23-APR-2023 05:28, No significant change was found Confirmed by Carlos Enrique Mata ([id number]) on 05/09/2023 6:05:57 PM Referred By: Confirmed By:Herb Mata
[2023-05-09] MEDS ORDERED: SODIUM CHLORIDE 0.9% 1000ML 2,000 ML IV ONE (18:08)
[2023-05-09 18:39] LABS: Appearance Urine Clear (Clear); Bacteria Urine Automated Negative (Negative); Bilirubin Urine Negative (Negative); Blood Urine Negative (Negative); Color Urine Yellow; Epithelial Cell Urine Auto >30 /lpf (0-5); Glucose Urine UA Negative (Negative); Ketones Urine Negative (Negative); Leukocyte Esterase Urine 1+ (Negative); Nitrite Urine Negative (Negative); Protein Urine Trace (Negative); RBC Urine Automated 0-4 /hpf (0-4); Specific Gravity Urine 1.018 (1.000-1.030); Urobilinogen Urine Negative (Negative); pH Urine 5.5 (4.5-7.5)
[2023-05-09] MEDS ORDERED: VANCOMYCIN HCL 1,750 MG in SODIUM CHLORIDE 0.9% 500 ML IV ONE (18:56)
[2023-05-09] MEDS ORDERED: cefTRIAXone SODIUM 2,000 MG/70 ML BAG IV STA (18:56)
[2023-05-09] MEDS ORDERED: VANCOMYCIN CONSULT ACTIVE PRN (18:56)
[2023-05-09] MEDS ORDERED: PRAMIPEXOLE DIHYDROCHLO 0.25 MG TAB PO ONE (19:14)
[2023-05-09] MEDS ORDERED: OPTIRAY 320 100ml IV ONE (19:25)
--- NOTE | 2023-05-09 19:40 | CT Scan Report ---
Exam(s): CT ABDOMEN + PELVIS With Contrast IV Amt: 87 ml optiray 320 EXAM: CT Abdomen and Pelvis With Intravenous Contrast CLINICAL HISTORY: Reason for exam: fever, recent UTI, eval for pyelo. TECHNIQUE: Axial computed tomography images of the abdomen and pelvis with intravenous contrast. CTDI is 25.9 mGy and DLP is 1139.32 mGy-cm. Automated exposure control was utilized for the study. A dose lowering technique was utilized adhering to the principles of ALARA. CONTRAST: Patient received 87 ml optiray 320 of IV contrast COMPARISON: No relevant prior studies available. FINDINGS: Lung bases: Unremarkable. No mass. No consolidation. ABDOMEN: Liver: Unremarkable. No mass. Gallbladder and bile ducts: Unremarkable. No calcified stones. No ductal dilation. Pancreas: Unremarkable. No mass. No ductal dilation. Spleen: Unremarkable. No splenomegaly. Adrenals: Unremarkable. No mass. Kidneys and ureters: no hydronephrosis. No renal, ureteral, or bladder calculi. Both kidneys opacify with contrast in a normal symmetric fashion. No significant sara-ureteral or perirenal inflammatory changes. Stomach and bowel: Unremarkable. No obstruction. No mucosal thickening. PELVIS: Appendix: No findings to suggest acute appendicitis. Bladder: Urinary bladder is moderately distended. Reproductive: Unremarkable as visualized. ABDOMEN and PELVIS: Intraperitoneal space: Unremarkable. No free air. No significant fluid collection. Bones/joints: No acute fracture. No dislocation. Soft tissues: Unremarkable. Vasculature: Diffuse vascular calcifications of the abdominal aorta. No abdominal aortic aneurysm. Lymph nodes: Unremarkable. No enlarged lymph nodes. IMPRESSION: 1. Unremarkable exam. 2. Specifically no CT evidence to suggest pyelonephritis Electronically signed by: Justus Salgado MD 05/09/23 19:39 PM
--- NOTE | 2023-05-09 20:46 | History & Physical Report ---
Date of Service May 09, 2023 Assessment & Plan (1) Fever: Plan: 67yo female with history of CAD, HTN, HLP and DM presenting with fever, tachycardia and somnolence/AMS. Etiology uncertain. She was recently treated with several days of Zosyn followed by Cefdinir. UA, CT abdomen and CXR with no obvious source of infection. ?tick borne illness ?encephalitis -Admit to medical -Maintain droplet precaution for now -Follow cultures sent from ER - blood and urine -Check stool PCR given patient's reported diarrhea. Check O&P - patient on well water at home (doubtful source - reports a very advanced water purification system - no prior problems with water) -Follow anaplasma/Lyme -LP per IR in the AM - CSF for cell coung with differential, culture and GS, meningitis PCR -Empiric Vancomycin, Ceftriaxone -Empiric Doxycycline (2) Uncontrolled type 2 diabetes mellitus with hyperglycemia: Plan: Chronic. Uncontrolled. Last HgbA1C on 04/23/23 elevated at 13.9 -Lantus 15u BID -ISS -Goal blood sugar 110 - 140 (3) Hypercholesteremia: Plan: Chronic. Stable -Crestor 10mg po qAM (4) HTN (hypertension): Plan: Blood pressure elevated at 162/88 -Continue metoprolol -Continue Spironolactone (5) Coronary artery disease: Plan: Chronic. Stable. Patient denies chest pain. Troponin is within normal limits at 3.8 -ASA 81mg po daily - on hold for LP - can resume tomorrow -Plavix 75mg po daily - on hold for LP - can resume tomorrow -Continue Crestor -Continue metoprolol History of Present Illness Chief Complaint: fever, fatigue Primary Care Provider: Akilah Cook PA-C Lillian Anders is a 67yo female with history of CAD s/p stent, HTN, HLP, DM presenting with fever and generalized illness. Patient initially presented to [facility] on 04/23/23 with complaint of intermittent LLE weakness and lethargy with fever. She had a workup performed which was suggestive of sepsis secondary to urinary source. She was treated with Ceftriaxone and ultimately transferred to [facility] due to report of neurological deficit. When she arrived to [facility] she was found to be more altered. WBC elevated at 12.5. CRP elevated at 14.63. Procalcitonin mildly elevated at 0.53. She was treated with Zosyn, IVF and insulin. She had a brain MRI performed on 04/23/23 which revealed mild T2/FLAIR thought to likely represent chronic microvascular ischemic changes. She had an echocardiogram performed on 04/26/23 which was normal, EF of 65-70%. Blood cultures were NEGATIVE and Urine culture revealed mixed richie. Patient clinically improved and she was discharged home on 04/26/23 on Cefdinir x 7 days which she completed. Patient reports that she felt a little bit better after returning home. However, over the last 3 days she has not been feeling well. She reports intermittent diarrhea over the last 3 days - dark in color, non-bloody/non-mucoid. This afternoon she had an episode of bilateral leg weakness, L>R, fatigue, fever and confusion as well as diffuse body aches and pain. She was unable to state the date or the president. No headache or neck stiffness. No falls or trauma. She denies abdominal pain, rectal pain or distention/bloating. Denies chest pain, cough, SOB or palpitations. Denies nausea/vomiting. No rash or joint inflammation. No urinary complaints. No sore throat/facial pain/dental pain No sick contacts or recent travel. She lives at home with her . Two dogs. No known tick exposure or mosquito bites. They are on well water at home. In the ER patient febrile, tachycardic ER Course: Tylenol Ceftriaxone NSS x 3L Allergies Allergy/AdvReac Type Severity Reaction Status Date / Time bee venom protein (honey bee) Allergy Verified 05/09/23 18:48 Home Medications Medication Instructions Recorded Confirmed Type aspirin 81 mg tablet,delayed 81 mg PO DAILY 07/06/20 05/09/23 History release (Adult Low Dose Aspirin) clopidogrel 75 mg tablet (Plavix) 75 mg PO DAILY 07/06/20 05/09/23 History pramipexole 0.25 mg tablet 0.5 mg PO BID 07/06/20 05/09/23 History (Mirapex) metoprolol succinate 200 mg 200 mg PO PM 04/23/23 05/09/23 History tablet,extended release 24 hr blood sugar diagnostic (Incentivyzeuch #100 ea 04/26/23 Rx Verio test strips) insulin glargine 100 unit/mL (3 18 unit (0.18 mL) subcut BID #15 mL 04/26/23 05/09/23 Rx mL) subcutaneous pen (Lantus Solostar U-100 Insulin) lancets 33 gauge (OneTouch Delica #100 ea 04/26/23 Rx Plus Lancet) metformin 500 mg tablet,extended 500 mg PO PM #30 tabs 04/26/23 05/09/23 Rx release 24 hr pantoprazole 40 mg tablet,delayed 40 mg PO DAILY #0 tabs 04/26/23 05/09/23 Rx release pen needle, diabetic 32 gauge x #100 ea 04/26/23 Rx 32" (Pen Needle) rosuvastatin 10 mg tablet 10 mg PO QAM #30 tabs 04/26/23 05/09/23 Rx spironolactone 100 mg tablet 50 mg PO QAM #30 tabs 04/26/23 05/09/23 Rx magnesium oxide 500 mg capsule 500 mg PO DAILY 05/09/23 05/09/23 History Past Med/Surg History Medical History CHF (congestive heart failure) Coronary artery disease HTN (hypertension) Hypercholesteremia Lumbago Lumbar facet joint syndrome Restless leg Spinal stenosis, lumbar region without neurogenic claudication Surgical History History of lumbar surgery L4-5 discectomy Social History Smoking Status: Unknown if ever smoked Hx Alcohol Use: No Hx Substance Use: No Preferred Language: Swedish Communication Ability: Effective Visual Impairment: Limited Hearing Ability: Hard of Hearing Fund Controller Required: No Beliefs That Will Affect Care: None marital status: Current Living Situation: Spouse current occupational status: retired Feels Safe at Home: Yes Assistive Devices: None Review of Systems Review of Systems: All systems reviewed & are unremarkable except as noted in HPI & below Physical Exam Physical Exam: General: patient somnolent, arousable, answers questions and follows commands appropriately then falls back to sleep Skin: warm, dry, intact, no rashes or lesions HEENT: NC/AT, PERRL, EOMI, anicteric sclera, conjunctiva without injection, external ear normal to inspection and nontender, nares patent, moist mucus memb ranes, dentition intact, no oropharyngeal lesions, neck supple, trachea midline, no LAD, no thyromegaly, no JVD, no photophobia, no nuchal rigidity, negative Kernigs/Brudziniskis Heart: +S1/S2, regular, tachycardic, no m/r/g Lungs: equal air entry bilaterally, no rales/rhonchi/wheezes Abd: +BS, soft, NT/ND, no masses/organomegaly/ascites Ext: warm, 2+ pulses in UE/LE bilaterally, no clubbing/cyanosis or edema Neuro: nonfocal, patient AA&O x 4, speech intact, no facial droop, moving all extremities on command with equal strength 5/5 Results & Data Results & Data Vital Signs (Past 12 Hours) Vital Signs Temp Pulse Resp BP Pulse Ox O2 Del Method O2 Flow Rate 05/09/23 20:05 116 H 14 05/09/23 19:40 161/89 H 05/09/23 19:40 114 H 16 05/09/23 19:15 152/76 H 05/09/23 19:15 107 H 95 05/09/23 19:00 109 H 16 05/09/23 19:00 157/64 H 05/09/23 19:00 36.9 C 05/09/23 18:48 140/86 05/09/23 18:48 114 H 17 97 Room Air 05/09/23 18:46 109 H 15 05/09/23 18:45 108 H 14 97 05/09/23 18:30 112 H 17 98 Room Air 05/09/23 18:30 144/83 H 05/09/23 18:15 114 H 14 94 05/09/23 18:15 131/86 05/09/23 18:00 115 H 20 95 05/09/23 18:00 137/70 05/09/23 17:45 111 H 16 95 05/09/23 17:45 157/80 H 05/09/23 17:30 113 H 20 95 Room Air 05/09/23 17:30 147/79 H 05/09/23 17:15 108 H 20 92 05/09/23 17:05 115 H 16 93 05/09/23 16:45 112 H 28 H 94 05/09/23 16:30 108 H 24 96 05/09/23 16:30 148/97 H 05/09/23 16:15 117 H 16 95 05/09/23 16:15 163/90 H 05/09/23 16:00 111 H 29 H 05/09/23 16:00 159/91 H 05/09/23 15:59 158/92 H 05/09/23 15:59 113 H 23 95 05/09/23 15:53 123 H 18 95 05/09/23 17:31 37.8 C H 05/09/23 15:57 96 Room Air 05/09/23 15:57 96 Room Air 0 05/09/23 15:40 38.3 C H 97 H 20 158/77 H 98 Room Air Laboratory Results Laboratory Results WBC 6.63 K/ul (4.8-10.8) 05/09/23 16:48 RBC 4.75 M/uL (4.20-5.40) 05/09/23 16:48 Hgb 12.7 g/dl (12.0-16.0) 05/09/23 16:48 Hct 39.0 % (37.0-47.0) 05/09/23 16:48 MCV 82.1 fL (80.0-100.0) 05/09/23 16:48 MCH 26.7 pg (25.0-34.0) 05/09/23 16:48 MCHC 32.6 g/dL (32.0-36.0) 05/09/23 16:48 RDW Std Deviation 41.5 fL (36.4-46.3) 05/09/23 16:48 RDW Coeff of Marshall 14.1 % (11.5-14.5) 05/09/23 16:48 Plt Count 411 K/uL (130-400) H 05/09/23 16:48 MPV 9.4 fL (9.4-12.4) 05/09/23 16:48 Immature Gran % (Auto) 0.3 % 05/09/23 16:48 Neut % (Auto) 75.7 % 05/09/23 16:48 Lymph % (Auto) 15.2 % 05/09/23 16:48 Harvey % (Auto) 7.1 % 05/09/23 16:48 Eos % (Auto) 0.9 % 05/09/23 16:48 Baso % (Auto) 0.8 % 05/09/23 16:48 Neut # (Auto) 5.02 K/uL (1.40-6.50) 05/09/23 16:48 Lymph # (Auto) 1.01 K/uL (1.2-3.4) L 05/09/23 16:48 Harvey # (Auto) 0.47 K/uL (0.11-0.59) 05/09/23 16:48 Eos # (Auto) 0.06 K/uL (0-0.50) 05/09/23 16:48 Baso # (Auto) 0.05 K/uL (0-0.2) 05/09/23 16:48 Immature Gran # (Auto) 0.02 K/uL (0.01-0.20) 05/09/23 16:48 PT 12.1 Seconds (9.0-12.0) H 05/09/23 16:48 INR 1.1 (0.9-1.1) 05/09/23 16:48 VBG pH 7.41 (7.36-7.41) 05/09/23 16:48 VBG pCO2 45 mmHg (38-50) 05/09/23 16:48 VBG pO2 19 mmHg 05/09/23 16:48 VBG HCO3 29 mmol/L 05/09/23 16:48 VBG O2 Saturation < 60.0 % 05/09/23 16:48 VBG Base Excess 3.2 mEq/L 05/09/23 16:48 Sodium 135 mmol/L (136-145) L 05/09/23 16:48 Potassium 3.9 mmol/L (3.5-5.1) 05/09/23 16:48 Chloride 101 mmol/L (98-107) 05/09/23 16:48 Carbon Dioxide 24 mmol/L (21-32) 05/09/23 16:48 Anion Gap 10 (3-11) 05/09/23 16:48 BUN 21 mg/dl (6-23) 05/09/23 16:48 Creatinine 1.04 mg/dl (0.6-1.2) 05/09/23 16:48 Est Cr Clr Drug Dosing Not Reportable 05/09/23 16:48 Est GFR ( Amer) 65.3 ml/min 05/09/23 16:48 Est GFR (Non-Af Amer) 56.3 ml/min 05/09/23 16:48 BUN/Creatinine Ratio 20.2 (10-20) H 05/09/23 16:48 Glucose 118 mg/dl (70-99(Fasting)) H 05/09/23 16:48 Lactate 1.7 mmol/L (0.4-2.0) 05/09/23 16:48 Calcium 9.7 mg/dl (8.6-10.3) 05/09/23 16:48 Magnesium 1.6 mg/dl (1.7-2.4) L 05/09/23 16:48 Total Bilirubin 0.5 mg/dl (0.2-1.0) 05/09/23 16:48 Direct Bilirubin 0.0 mg/dl (0-0.2) 05/09/23 16:48 AST 19 U/L (13-39) 05/09/23 16:48 ALT 18 U/L (7-52) 05/09/23 16:48 Alkaline Phosphatase 76 U/L (34-104) 05/09/23 16:48 Troponin I High Sens 3.8 pg/ml (0-14) 05/09/23 16:48 Total Protein 8.1 gm/dl (6.0-8.3) 05/09/23 16:48 Albumin 4.0 gm/dl (3.4-5.0) 05/09/23 16:48 Procalcitonin 0.14 ng/ml (0-0.5) 05/09/23 16:48 Urine Color Yellow 05/09/23 17:45 Urine Appearance Clear (Clear) 05/09/23 17:45 Urine pH 5.5 (4.5-7.5) 05/09/23 17:45 Ur Specific [place] 1.018 (1.000-1.030) 05/09/23 17:45 Urine Protein Trace (Negative) H 05/09/23 17:45 Urine Glucose (UA) Negative (Negative) 05/09/23 17:45 Urine Ketones Negative (Negative) 05/09/23 17:45 Urine Blood Negative (Negative) 05/09/23 17:45 Urine Nitrite Negative (Negative) 05/09/23 17:45 Urine Bilirubin Negative (Negative) 05/09/23 17:45 Urine Urobilinogen Negative (Negative) 05/09/23 17:45 Ur Leukocyte Esterase 1+ (Negative) H 05/09/23 17:45 Urine WBC (Auto) 10-30 /hpf (0-5) H 05/09/23 17:45 Urine RBC (Auto) 0-4 /hpf (0-4) 05/09/23 17:45 U Hyaline Cast (Auto) 1-5 /lpf (0-5) 05/09/23 17:45 U Epithel Cells (Auto) >30 /lpf (0-5) H 05/09/23 17:45 Urine Bacteria (Auto) Negative (Negative) 05/09/23 17:45 Adenovirus (PCR) Not Detected (NotDetected) 05/09/23 16:23 Anaplasma Smear See Comment 05/09/23 16:48 Babesia Smear See Comment 05/09/23 16:48 B. pertussis DNA (PCR) Not Detected (NotDetected) 05/09/23 16:23 B.parapertussis DNA PCR Not Detected (NotDetected) 05/09/23 16:23 Lyme Disease IgG Ab Negative (Negative) 05/09/23 16:48 Lyme Disease IgM Ab Negative (Negative) 05/09/23 16:48 C. pneumoniae DNA (PCR) Not Detected (NotDetected) 05/09/23 16:23 Coronavirus OC43 (PCR) Not Detected (NotDetected) 05/09/23 16:23 Coronavirus HKU1 (PCR) Not Detected (NotDetected) 05/09/23 16:23 Coronavirus 229E (PCR) Not Detected (NotDetected) 05/09/23 16:23 SARS-CoV-2 (PCR) Not Detected (NotDetected) 05/09/23 16:23 Coronavirus NL63 (PCR) Not Detected (NotDetected) 05/09/23 16:23 Human Metapneumovir PCR Not Detected (NotDetected) 05/09/23 16:23 Influenza Type A (PCR) Not Detected (NotDetected) 05/09/23 16:23 Influenza Type B (PCR) Not Detected (NotDetected) 05/09/23 16:23 M. pneumoniae (PCR) Not Detected (NotDetected) 05/09/23 16:23 Parainfluenza 1 (PCR) Not Detected (NotDetected) 05/09/23 16:23 Parainfluenza 2 (PCR) Not Detected (NotDetected) 05/09/23 16:23 Parainfluenza 3 (PCR) Not Detected (NotDetected) 05/09/23 16:23 Parainfluenza 4 (PCR) Not Detected (NotDetected) 05/09/23 16:23 RSV (PCR) Not Detected (NotDetected) 05/09/23 16:23 Entero/Rhino (PCR) Not Detected (NotDetected) 05/09/23 16:23 Impressions Chest X-Ray 05/09/23 15:57 SINGLE VIEW CHEST CLINICAL HISTORY: Sepsis. FINDINGS: An AP, portable, upright chest radiograph is obtained. No prior studies are available for comparison at the time of dictation. The cardiomediastinal silhouette is unremarkable noting atherosclerotic calcification of the thoracic aorta. There is mild bibasilar scarring/atelectasis. No airspace consolidation or large pleural effusion is identified. No pneumothorax is seen. The skeletal structures are osteopenic. The bony thorax is grossly intact. Bulky calcific tendinopathy is noted in the left shoulder. IMPRESSION: No active disease in the chest. ACT 112: Negative or not required by law. Electronically signed by: Bereket Metz M.D. 05/09/2023 5:[address] 05/09/23 16:05 CT SCAN OF THE BRAIN WITHOUT IV CONTRAST CLINICAL HISTORY: Change in mental status. COMPARISON STUDY: MRI of the brain dated 04/23/2023. TECHNIQUE: Unenhanced axial CT scan of the brain is performed from the vertex to the skull base. A dose lowering technique was utilized adhering to the principles of ALARA. CT DOSE: 625.80 mGy.cm FINDINGS: Brain parenchyma: There is age-related involutional change noting mild subcorti rayshawn and periventricular microangiopathic disease. There is no hemorrhage, mass effect, or evidence of acute territorial ischemia by CT criteria. Walters-white matter differentiation is preserved. No extra-axial fluid collection is seen. Ventricles, sulci, cisterns: Prominent secondary to involutional change. Intracranial vasculature: There is atherosclerotic calcification of the cavernous carotid and vertebral arteries. Calvarium: Unremarkable. Sinuses and mastoids: The visualized paranasal sinuses are clear. The mastoid air cells are well pneumatized. Orbits: The bony orbits are grossly intact. IMPRESSION: There is no hemorrhage, mass effect, or evidence of acute territorial ischemia by CT criteria. ACT 112: Negative or not required by law. Electronically signed by: Bereket Metz M.D. 05/09/2023 5:07 PM Abdomen/Pelvis CT 05/09/23 18:52 Exam(s): CT ABDOMEN + PELVIS With Contrast IV Amt: 87 ml optiray 320 EXAM: CT Abdomen and Pelvis With Intravenous Contrast CLINICAL HISTORY: Reason for exam: fever, recent UTI, eval for pyelo. TECHNIQUE: Axial computed tomography images of the abdomen and pelvis with intravenous contrast. CTDI is 25.9 mGy and DLP is 1139.32 mGy-cm. Automated exposure control was utilized for the study. A dose lowering technique was utilized adhering to the principles of ALARA. CONTRAST: Patient received 87 ml optiray 320 of IV contrast COMPARISON: No relevant prior studies available. FINDINGS: Lung bases: Unremarkable. No mass. No consolidation. ABDOMEN: Liver: Unremarkable. No mass. Gallbladder and bile ducts: Unremarkable. No calcified stones. No ductal dilation. Pancreas: Unremarkable. No mass. No ductal dilation. Spleen: Unremarkable. No splenomegaly. Adrenals: Unremarkable. No mass. Kidneys and ureters: no hydronephrosis. No renal, ureteral, or bladder calculi. Both kidneys opacify with contrast in a normal symmetric fashion. No significant sara-ureteral or perirenal inflammatory changes. Stomach and bowel: Unremarkable. No obstruction. No mucosal thickening. PELVIS: Appendix: No findings to suggest acute appendicitis. Bladder: Urinary bladder is moderately distended. Reproductive: Unremarkable as visualized. ABDOMEN and PELVIS: Intraperitoneal space: Unremarkable. No free air. No significant fluid collection. Bones/joints: No acute fracture. No dislocation. Soft tissues: Unremarkable. Vasculature: Diffuse vascular calcifications of the abdominal aorta. No abdominal aortic aneurysm. Lymph nodes: Unremarkable. No enlarged lymph nodes. IMPRESSION: 1. Unremarkable exam. 2. Specifically no CT evidence to suggest pyelonephritis Electronically signed by: Justus Salgado MD 05/09/23 19:39 PM PG Care Time/CCT Total # of Minutes Spent Total Time Spent with Patient: Total time spent is greater than 50% in coordination of care (as documented) at patient's floor/unit and/or counseling patient: Coding Level of Care Code 92481 INT INP/OBS CARE 3/75MIN Diagnoses Fever R50.9 Uncontrolled type 2 diabetes mellitus with hyperglycemia E11.65 Hypercholesteremia E78.00 HTN (hypertension) I10 Coronary artery disease I25.10
[2023-05-10] MEDS ORDERED: CARBOHYDRATES FOR HYPOGLYCEMIA PO PRN (00:29)
[2023-05-10] MEDS ORDERED: VANCOMYCIN CONSULT ACTIVE PRN (00:29)
[2023-05-10] MEDS ORDERED: ONDANSETRON INJ 2 MG/ML 2 ML VIAL IV PRN (00:29)
[2023-05-10] MEDS ORDERED: PRAMIPEXOLE DIHYDROCHLO 0.5 MG TAB PO SCH (00:29)
[2023-05-10] MEDS ORDERED: GLUCOSE 40% GEL 15 GM TUBE PO PRN (00:29)
[2023-05-10] MEDS ORDERED: GLUCAGON FOR INJ 1 MG VIAL SQ PRN (00:29)
[2023-05-10] MEDS ORDERED: GLUCOSE 10 TAB/TUBE PO PRN (00:29)
[2023-05-10] MEDS ORDERED: DEXTROSE 50% 50 ML SYRINGE IV PRN (00:29)
[2023-05-10 00:56] LABS: Phosphorus 2.7 mg/dl (2.5-4.9)
[2023-05-10] MEDS: INSULIN ASPART PER UNIT CHARGE SC SCH ×5 (01:04→20:46)
[2023-05-10] MEDS ORDERED: PRAMIPEXOLE DIHYDROCHLO 0.25 MG TAB PO STA (01:11)
[2023-05-10] MEDS: LANTUS PER UNIT CHARGE SQ SCH ×3 (01:20→20:46)
[2023-05-10] MEDS: DOXYCYCLINE HYCLATE 100 MG in DEXTROSE 5% 100 ML IV SCH ×2 (01:38→13:12)
[2023-05-10] MEDS: METOPROLOL SUCC 50MG EXT REL TAB PO SCH ×2 (01:40→20:45)
[2023-05-10] MEDS: ACETAMINOPHEN 325 MG TAB PO PRN ×4 (02:18→20:48)
[2023-05-10] MEDS ORDERED: VANCOMYCIN HCL 750 MG in SODIUM CHLORIDE 0.9% 250 ML IV SCH (05:00)
[2023-05-10] MEDS: ROSUVASTATIN CALCIUM 10 MG TAB PO SCH (08:05)
[2023-05-10] MEDS: SPIRONOLACTONE 25 MG TAB PO SCH (08:05)
[2023-05-10] MEDS: PRAMIPEXOLE DIHYDROCHLO 0.5 MG TAB PO SCH ×2 (08:05→20:45)
[2023-05-10] MEDS: PANTOprazole 40 MG TAB PO SCH (08:05)
[2023-05-10 08:10] LABS: Hematocrit (blood only) 35.2 % (37.0-47.0); Hemoglobin 11.5 g/dl (12.0-16.0); Mean Corpuscular Hemoglobin 27.2 pg (25.0-34.0); Mean Corpuscular Hgb Conc 32.7 g/dL (32.0-36.0); Mean Corpuscular Volume 83.2 fL (80.0-100.0); Mean Platelet Volume 9.2 fL (9.4-12.4); Platelet Count 332 K/uL (130-400); RDW Standard Deviation 42.4 fL (36.4-46.3); Red Blood Count 4.23 M/uL (4.20-5.40); White Blood Count 5.49 K/ul (4.8-10.8)
[2023-05-10 08:28] LABS: Albumin Level 3.3 gm/dl (3.4-5.0); BUN Creatinine Ratio 15.4 (10-20); Bilirubin Direct 0.1 mg/dl (0-0.2); Bilirubin,Total 0.5 mg/dl (0.2-1.0); Calcium 8.5 mg/dl (8.6-10.3); Creatinine Clr Calc Pharmacy 72.8 ml/min; Est GFR (African American) 92.5 ml/min; Est GFR (Non-African American) 79.8 ml/min; Magnesium 1.4 mg/dl (1.7-2.4); Potassium 3.6 mmol/L (3.5-5.1); Total Protein 6.5 gm/dl (6.0-8.3)
--- NOTE | 2023-05-10 09:06 | Pharmacy Report ---
Pharmacy PK ABX Note - Date of Service May 10, 2023 - Assessment and Plan Assessment 67 year old F receiving empiric vancomycin, doxycycline, and ceftriaxone for treatment of fever/concern of infection w/ no currently identified source. Patient presented w/ fever, tachycardia, and altered mental status. Pertinent microbiologic data includes: blood cultures x 2 and urine cultures pending. Lyme and anaplasma negative, babesia pending. Tmax of 38.3 C since time of admission, tachycardic since that time. Head/abdominal CTs unremarkable. Renal function appears to be at baseline (~0.8-1 mg/dL) Day # 1 of antimicrobial therapy. Plan Vancomycin * Loading dose: 1750 mg IV x 1 * Maintenance dose: 1000 mg IV every 12 hours (originally ordered 750 mg IV q12h, received 1 dose) * Regimen is predicted to achieve target AUC/FARIBA of 400-600 mg/L.hr * Will order random level on 812 if therapy is to continue beyond 48 hours Pharmacy will continue to follow and will adjust dose/frequency as necessary. Thank you. Pharmacy has transitioned to AUC monitoring for vancomycin. AUC/FARIBA is the preferred PK/PD target and is associated with decreased risk of nephrotoxicity compared to traditional trough targets.
--- NOTE | 2023-05-10 14:27 | Infectious Disease Consult ---
Date of Consultation May 10, 2023 Assessment & Plan (1) Fever: (2) Sepsis: Plan Micro: 05/10 CSF cx: pending. GS--pending. 05/09 UCx: >100K GNRs 05/09 BCx x2: pending Abx: Vanc 05/09 - present Ceftriaxone 05/09 - present Doxycycline 05/09 - present Problems: #Fever #UCx with GNRs 67 yo F with history of CAD s/p stent, CHF, HTN, HLD, DM who presented on 05/09 with fevers, myalgias. Pt was recently admitted 04/23-04/26 with sepsis thought due to a urinary source. At that hospitalization, pt was febrile, tachycardic, WBC 14.3, lactate 2.5, and reported dysuria and urinary urgency/frequency x 1 week. UCx grew mixed richie. She was given ceftriaxone then switched to pip-tazo, then discharged on cefdinir 300 mg PO BID x 7 days. Patient reports that her urinary symptoms completely resolved. However, over the last 3 days, she had been feeling unwell, had an episode of bilateral LE weakness L>R, fatigue, fever, confusion, diffuse myalgias. On presentation, pt was febrile to 38.3, HR 90s-120s. Labs showed WBC 6.6, plt 411, baseline creatinine, normal LFTs, procalcitonin 0.14. UA with 10-20 WBCs, over 30 epithelial cells. RVP negative. Lyme screen negative. Anaplasma/Babesia smear negative. Anaplasma PCR pending. CT, chest x-ray, CT A/P with contrast negative. Patient was st arted on vanc, ceftriaxone, doxycycline. Lumbar puncture on 05/10 showed CSF WBC 6, RBC 1, protein 42.1, glucose 79, meningitis/encephalitis PCR panel pending. CSF Lyme PCR and West Nile virus IgM also sent. ROS is negative for URI symptoms, abd pain, dysuria, rash. Recent diarrhea has resolved. Social history unremarkable--no recent travel, no sick contacts, no tick exposures. Recommendations: -Follow-up UCx GNRs -Follow-up blood cultures -Can continue vanc, ceftriaxone 2 g for now -Ordered MRSA nares. If BCx NGTD and MRSA swab negative, can discontinue vanc -Think tick-borne illness seems unlikely, can discontinue doxycycline -CSF cell counts, protein, glucose not particularly concerning--think meningitis is less likely. Follow-up meningitis/encephalitis PCR panel. Discussed with Dr. Madera. Will continue to follow. Please page [facility] with further questions. Consultation Information Consultation was provided via telemedicine using two-way real-time interactive telecommunication between the patient and the telemedicine provider. For the duration of the visit, the provider was performing the assessment from a different facility than the patient. This includesuse of bluetooth stethoscope forauscultationperformed by the telepresenter that the telemedicine provider can hear if described in the physical exam. [employer] Underwriter contact information: Please call [facility] . (Phone Number For Physician Use Only) After establishing a telemedicine visit, patient was: Patient was verified with two unique identifiers, Patient/authorized rep acknowledged consent and understanding and Gave permission to continue telehealth session Time Spent with Patient: Initial => 40 min History of Present Illness Reason for Consultation: fever with unclear source Requesting Physician: Dr. Madera Attending Physician: Tomás Madera History of Present Illness 67 yo F with history of CAD s/p stent, CHF, HTN, HLD, DM who presented on 05/09 with fevers, myalgias. Pt was recently admitted 04/23-04/26 with sepsis thought due to a urinary source. At that hospitalization, pt was febrile, tachycardic, WBC 14.3, lactate 2.5, and reported dysuria and urinary urgency/frequency x 1 week. UCx grew mixed richie. She was given ceftriaxone then switched to pip-tazo, then discharged on cefdinir 300 mg PO BID x 7 days. Patient reports that her urinary symptoms completely resolved. However, over the last 3 days, she had been feeling unwell. Also had an episode of bilateral LE weakness L>R, fatigue, fever, confusion, diffuse myalgias. On presentation, pt was febrile to 38.3, HR 90s-120s. Labs showed WBC 6.6, baseline creatinine, procalcitonin 0.14. UA with 10-20 WBCs, over 30 epithelial cells. RVP negative. Lyme screen negative. Anaplasma/Babesia smear negative. Anaplasma PCR pending. CT, chest x-ray, CT A/P with contrast negative. Patient was started on vanc, ceftriaxone, doxycycline. Lumbar puncture was performed today: CSF WBC 6, RBC 1, protein 42.1, glucose 79, meningitis/encephalitis PCR panel pending. CSF Lyme PCR and West Nile virus IgM also sent. Denies sore throat, rhinorrhea, cough, chest pain, abd pain, dysuria, rashes/wounds. Had some diarrhea last week thought related to metformin, which has resolved. Denies recent travel, sick contacts. Lives with her , daughter and her , and their 3 children. Has two dogs and 4 guinea pigs. Not currently working. States she does not spend much time outdoors. Has not been in wooded areas. Born in [facility]. Has never traveled outside of the . Allergies Allergy/AdvReac Type Severity Reaction Status Date / Time bee venom protein (honey bee) Allergy Verified 05/09/23 18:48 Home Medications Medication Instructions Recorded Confirmed Type aspirin 81 mg tablet,delayed 81 mg PO DAILY 07/06/20 05/09/23 History release (Adult Low Dose Aspirin) clopidogrel 75 mg tablet (Plavix) 75 mg PO DAILY 07/06/20 05/09/23 History pramipexole 0.25 mg tablet 0.5 mg PO BID 07/06/20 05/09/23 History (Mirapex) metoprolol succinate 200 mg 200 mg PO PM 04/23/23 05/09/23 History tablet,extended release 24 hr blood sugar diagnostic ([employer] #100 ea 04/26/23 Rx Verio test strips) insulin glargine 100 unit/mL (3 18 unit (0.18 mL) subcut BID #15 mL 04/26/23 05/09/23 Rx mL) subcutaneous pen (Lantus Solostar U-100 Insulin) lancets 33 gauge (OneTouch Delica #100 ea 04/26/23 Rx Plus Lancet) metformin 500 mg tablet,extended 500 mg PO PM #30 tabs 04/26/23 05/09/23 Rx release 24 hr pantoprazole 40 mg tablet,delayed 40 mg PO DAILY #0 tabs 04/26/23 05/09/23 Rx release pen needle, diabetic 32 gauge x #100 ea 04/26/23 Rx 5/32" (Pen Needle) rosuvastatin 10 mg tablet 10 mg PO QAM #30 tabs 04/26/23 05/09/23 Rx spironolactone 100 mg tablet 50 mg PO QAM #30 tabs 04/26/23 05/09/23 Rx magnesium oxide 500 mg capsule 500 mg PO DAILY 05/09/23 05/09/23 History Patient History Medical History CHF (congestive heart failure) Coronary artery disease HTN (hypertension) Hypercholesteremia Lumbago Lumbar facet joint syndrome Restless leg Spinal stenosis, lumbar region without neurogenic claudication Surgical History History of lumbar surgery L4-5 discectomy Social History Smoking Status: Never smoker Hx Alcohol Use: No Hx Substance Use: No Preferred Language: Setswana Communication Ability: Effective Visual Impairment: Limited Hearing Ability: Hard of Hearing Marketing Intern Required: No Beliefs That Will Affect Care: None marital status: Current Living Situation: Spouse current occupational status: retired Other Information That Helps Us Care for You: No Feels Safe at Home: Yes Safety Concerns: Feels Safe At This Time Assistive Devices: Cane Review of System A complete ROS was performed and is negative except as mentioned in the HPI. Physical Exam Physical Exam: GEN: laying in bed in NAD. RESP: No increased work of breathing ABD: Soft, non-distended. Non-tender to palpation. EXT: Warm, well-perfused. SKIN: No lesions or rashes on exposed skin. NEURO: Alert and oriented. Answers all questions appropriately. Speech not slurred. PSYCH: Normal mood, affect appropriate. Results & Data Vital Signs (Past 12 Hours) Vital Signs Temp Pulse Pulse Resp BP Pulse Ox O2 Del Method 05/10/23 07:18 36.7 C 88 16 116/71 94 Room Air 05/10/23 02:56 108 H 134/74 Laboratory Results Short CBC 05/09/23 05/10/23 Range/Units 16:48 07:27 WBC 6.63 5.49 (4.8-10.8) K/ul Hgb 12.7 11.5 L (12.0-16.0) g/dl Hct 39.0 35.2 L (37.0-47.0) % Plt Count 411 H 332 (130-400) K/uL BMP 05/09/23 05/10/23 16:48 07:27 Sodium 135 L 139 Potassium 3.9 3.6 Chloride 101 107 Carbon Dioxide 24 25 BUN 21 12 Creatinine 1.04 0.78 Glucose 118 H 108 H Calcium 9.7 8.5 L Liver Function 05/09/23 05/10/23 Range/Units 16:48 07:27 Total Bilirubin 0.5 0.5 (0.2-1.0) mg/dl Direct Bilirubin 0.0 0.1 (0-0.2) mg/dl AST 19 26 (13-39) U/L ALT 18 22 (7-52) U/L Alkaline Phosphatase 76 53 (34-104) U/L Albumin 4.0 3.3 L (3.4-5.0) gm/dl Urine 05/09/23 Range/Units 17:45 Urine Color Yellow Urine Appearance Clear (Clear) Urine pH 5.5 (4.5-7.5) Ur Specific [place] 1.018 (1.000-1.030) Urine Protein Trace H (Negative) Urine Glucose (UA) Negative (Negative) Diagnostic Findings Chest X-Ray 05/09/23 15:57 SINGLE VIEW CHEST CLINICAL HISTORY: Sepsis. FINDINGS: An AP, portable, upright chest radiograph is obtained. No prior studies are available for comparison at the time of dictation. The cardiomediastinal silhouette is unremarkable noting atherosclerotic calcification of the thoracic aorta. There is mild bibasilar scarring/atelectasis. No airspace consolidation or large pleural effusion is identified. No pneumothorax is seen. The skeletal structures are osteopenic. The bony thorax is grossly intact. Bulky calcific tendinopathy is noted in the left shoulder. IMPRESSION: No active disease in the chest. ACT 112: Negative or not required by law. Electronically signed by: Bereket Metz M.D. 05/09/2023 5:[address] 05/09/23 16:05 CT SCAN OF THE BRAIN WITHOUT IV CONTRAST CLINICAL HISTORY: Change in mental status. COMPARISON STUDY: MRI of the brain dated 04/23/2023. TECHNIQUE: Unenhanced axial CT scan of the brain is performed from the vertex to the skull base. A dose lowering technique was utilized adhering to the principles of ALARA. CT DOSE: 625.80 mGy.cm FINDINGS: Brain parenchyma: There is age-related involutional change noting mild subcortical and periventricular microangiopathic disease. There is no hemorrhage, mass effect, or evidence of acute territorial ischemia by CT criteria. Walters-white matter differentiation is preserved. No extra-axial fluid collection is seen. Ventricles, sulci, cisterns: Prominent secondary to involutional change. Intracranial vasculature: There is atherosclerotic calcification of the cavernous carotid and vertebral arteries. Calvarium: Unremarkable. Sinuses and mastoids: The visualized paranasal sinuses are clear. The mastoid air cells are well pneumatized. Orbits: The bony orbits are grossly intact. IMPRESSION: There is no hemorrhage, mass effect, or evidence of acute territo rial ischemia by CT criteria. ACT 112: Negative or not required by law. Electronically signed by: Bereket Metz M.D. 05/09/2023 5:07 PM Abdomen/Pelvis CT 05/09/23 18:52 Exam(s): CT ABDOMEN + PELVIS With Contrast IV Amt: 87 ml optiray 320 EXAM: CT Abdomen and Pelvis With Intravenous Contrast CLINICAL HISTORY: Reason for exam: fever, recent UTI, eval for pyelo. TECHNIQUE: Axial computed tomography images of the abdomen and pelvis with intravenous contrast. CTDI is 25.9 mGy and DLP is 1139.32 mGy-cm. Automated exposure control was utilized for the study. A dose lowering technique was utilized adhering to the principles of ALARA. CONTRAST: Patient received 87 ml optiray 320 of IV contrast COMPARISON: No relevant prior studies available. FINDINGS: Lung bases: Unremarkable. No mass. No consolidation. ABDOMEN: Liver: Unremarkable. No mass. Gallbladder and bile ducts: Unremarkable. No calcified stones. No ductal dilation. Pancreas: Unremarkable. No mass. No ductal dilation. Spleen: Unremarkable. No splenomegaly. Adrenals: Unremarkable. No mass. Kidneys and ureters: no hydronephrosis. No renal, ureteral, or bladder calculi. Both kidneys opacify with contrast in a normal symmetric fashion. No significant sara-ureteral or perirenal inflammatory changes. Stomach and bowel: Unremarkable. No obstruction. No mucosal thickening. PELVIS: Appendix: No findings to suggest acute appendicitis. Bladder: Urinary bladder is moderately distended. Reproductive: Unremarkable as visualized. ABDOMEN and PELVIS: Intraperitoneal space: Unremarkable. No free air. No significant fluid collection. Bones/joints: No acute fracture. No dislocation. Soft tissues: Unremarkable. Vasculature: Diffuse vascular calcifications of the abdominal aorta. No abdominal aortic aneurysm. Lymph nodes: Unremarkable. No enlarged lymph nodes. IMPRESSION: 1. Unremarkable exam. 2. Specifically no CT evidence to suggest pyelonephritis Electronically signed by: Justus Salgado MD 05/09/23 19:39 PM Lumbar Puncture 05/10/23 00:29 Lumbar puncture under fluoroscopy INDICATION: Fever; somnolence PROCEDURE: Procedure and risks were explained. Informed consent was obtained. A final timeout was completed. The patient was prone on the fluoroscopic examination table. The lower lumbar region was prepped and draped in sterile fashion. 1% lidocaine was utilized for skin anesthesia. Utilizing fluoroscopic guidance, a 22-gauge spinal needle was advanced into the intrathecal space at the L3-4 disc space level. 2 spot images were obtained. Approximately 8 mL of clear CSF fluid was removed and sent to lab for analysis. The needle was removed and Band-Aid applied. The patient tolerated the procedure well. Total fluoroscopy time 26 seconds. DAP is 10.1 mcGy/m2. IMPRESSION: Lumbar puncture as above. Performed, dictated, and signed by Jordan Lindsay PA-C; to be co-signed by Dr. Bereket Metz. Medications Administered Current Inpatient Medications Acetaminophen (Acetaminophen 325 Mg Tab) 650 mg PO Q4H PRN PRN Reason: pain/fever Stop: 06/09/23 00:28 Last Admin: 05/10/23 14:58 Dose: 650 mg Dextrose (Dextrose 50% 50 Ml Syringe) 25 - 50 ml IV UD PRN; Protocol PRN Reason: Hypoglycemia Protocol Stop: 06/09/23 00:28 Glucagon (Glucagon For Inj 1 Mg Vial) 1 mg SQ UD PRN; Protocol PRN Reason: Hypoglycemia Protocol Stop: 06/09/23 00:28 Glucose (Glucose 40% Gel 15 Gm Tube) 15 - 30 gm PO UD PRN; Protocol PRN Reason: Hypoglycemia Protocol Stop: 06/09/23 00:28 Glucose (Glucose 10 Tab/Tube) 4 - 8 tab PO UD PRN; Protocol PRN Reason: Hypoglycemia Treatment Stop: 06/09/23 00:28 Ceftriaxone Sodium 2,000 mg/ (Dextrose) 70 mls @ 100 mls/hr IV Q24H OLE; Protocol Stop: 05/12/23 18:59 Doxycycline Hyclate 100 mg/ (Dextrose) 110 mls @ 50 mls/hr IV Q12H [facility] Stop: 05/12/23 00:59 Last Admin: 05/10/23 13:12 Dose: 50 mls/hr Vancomycin HCl 1,000 mg/ (Sodium Chloride) 270 mls @ 200 mls/hr IV Q12H OLE Stop: 05/11/23 23:59 Last Infusion: 05/10/23 15:05 Dose: 0 mls/hr Insulin Aspart (Insulin Aspart Per Unit Charge) 0 units SC ACHS OLE Stop: 06/09/23 00:28 Last Admin: 05/10/23 12:41 Dose: 2 units Insulin Glargine (Lantus Per Unit Charge) 15 units SQ BID [facility] Stop: 06/09/23 00:28 Last Admin: 05/10/23 10:10 Dose: Not Given Metoprolol Succinate (Metoprolol Succ 50mg Ext Rel Tab) 200 mg PO PM [facility] Stop: 06/09/23 00:28 Last Admin: 05/10/23 01:40 Dose: 200 mg Miscellaneous (Carbohydrates For Hypoglycemia ) 15 - 30 gm PO UD PRN PRN Reason: Hypoglycemia Protocol Stop: 06/09/23 00:28 Miscellaneous Information (Vancomycin Consult Active) 1 each N/A UD PRN PRN Reason: Consult Stop: 06/09/23 00:28 Ondansetron HCl (Ondansetron Inj 2 Mg/Ml 2 Ml Vial) 4 mg IV Q6H PRN PRN Reason: Nausea Stop: 06/09/23 00:28 Pantoprazole Sodium (Pantoprazole 40 Mg Tab) 40 mg PO DAILY [facility] Stop: 06/09/23 08:59 Last Admin: 05/10/23 08:05 Dose: 40 mg Pramipexole Dihydrochloride (Pramipexole Dihydrochlo 0.5 Mg Tab) 0.5 mg PO BID [facility] Stop: 06/09/23 08:59 Last Admin: 05/10/23 08:05 Dose: 0.5 mg Rosuvastatin Calcium (Rosuvastatin Calcium 10 Mg Tab) 10 mg PO QAM [facility] Stop: 06/09/23 08:59 Last Admin: 05/10/23 08:05 Dose: 10 mg Spironolactone (Spironolactone 25 Mg Tab) 50 mg PO QAM [facility] Stop: 06/09/23 08:59 Last Admin: 05/10/23 08:05 Dose: 50 mg
--- NOTE | 2023-05-10 14:50 | Fluoroscopy Report ---
LUMBAR PUNCTURE UNDER FLUOROSCOPY CLINICAL HISTORY: Fever; somnolence PROCEDURE: Procedure and risks were explained. Informed consent was obtained. A final timeout was com pleted. The patient was prone on the fluoroscopic examination table. The lower lumbar region was prep ped and draped in sterile fashion. 1% lidocaine was utilized for skin anesthesia. Utilizing fluoroscopic guidance, a 22-gauge spinal needle was advanced into the intrathecal space at the L3-4 disc space level. 2 spot images were obtained. Approximately 8 mL of clear CSF fluid was rem ev and sent to lab for analysis. The needle was removed and Band-Aid applied. The patient tolerated the procedure well. Total fluoroscopy time 26 seconds. DAP is 10.1 mcGy/m2. IMPRESSION: Lumbar puncture as above. Performed, dictated, and signed by Jordan Lindsay PA-C; to be co-signed by Dr. Bereket Metz. Electronically signed by: Bereket Metz M.D. 05/10/2023 3:25 PM
[2023-05-10 14:52] LABS: Appearance CSF Clear; CSF Count Tube # 3; CSF Xanthrochromic No xanthochromia; Color CSF Colorless
[2023-05-10 15:01] LABS: Total Protein CSF 42.1 mg/dl (15-45)
[2023-05-10] MEDS: VANCOMYCIN HCL 1,000 MG in SODIUM CHLORIDE 0.9% 250 ML IV SCH (15:01)
[2023-05-10 16:13] LABS: Cryptococcus neoformans/ga PCR Not Detected (NotDetected); Cytomegalovirus PCR Not Detected (NotDetected); Enterovirus PCR Not Detected (NotDetected); Escherichia coli K1 PCR Not Detected (NotDetected); Haemophilius influenzae PCR Not Detected (NotDetected); Herpes Simplex Virus 1 PCR Not Detected (NotDetected); Herpes Simplex Virus 2 PCR Not Detected (NotDetected); Human Herpes Virus 6 PCR Not Detected (NotDetected); Human Parechovirus PCR Not Detected (NotDetected); Listeria monocytogenes PCR Not Detected (NotDetected); Neisseria meningitidis PCR Not Detected (NotDetected); Streptococcus agalactiae PCR Not Detected (NotDetected); Streptococcus pneumoniae PCR Not Detected (NotDetected); Varicella Zoster Virus PCR Not Detected (NotDetected)
[2023-05-10] MEDS ORDERED: cefTRIAXone SODIUM 2,000 MG in DEXTROSE 5% 50 ML IV SCH (19:00)
--- NOTE | 2023-05-10 22:41 | Hospitalist Progress Note ---
Date of Service May 10, 2023 Assessment & Plan (1) Fever: Plan: 67yo female with history of CAD, HTN, HLP and DM presenting with fever, tachycardia and somnolence/AMS. Etiology uncertain. She was recently treated with several days of Zosyn followed by Cefdinir. UA, CT abdomen and CXR with no obvious source of infection. ?tick borne illness ?encephalitis -Admit to medical -Maintain droplet precaution for now -Follow cultures sent from ER - blood and urine -Check stool PCR given patient's reported diarrhea. Check O&P - patient on well water at home (doubtful source - reports a very advanced water purification system - no prior problems with water) -Follow anaplasma/Lyme -LP per IR in the AM - CSF for cell coung with differential, culture and GS, meningitis PCR -Empiric Vancomycin, Ceftriaxone -Empiric Doxycycline will be stopped. -appreciate input from ID (2) Uncontrolled type 2 diabetes mellitus with hyperglycemia: Plan: Chronic. Uncontrolled. Last HgbA1C on 04/23/23 elevated at 13.9 -Lantus 15u BID -ISS -Goal blood sugar 110 - 140 (3) Hypercholesteremia: Plan: Chronic. Stable -Crestor 10mg po qAM (4) HTN (hypertension): Plan: Blood pressure elevated at 162/88 -Continue metoprolol -Continue Spironolactone (5) Coronary artery disease: Plan: Chronic. Stable. Patient denies chest pain. Troponin is within normal limits at 3.8 -ASA 81mg po daily - on hold for LP - can resume tomorrow -Plavix 75mg po daily - on hold for LP - can resume tomorrow -Continue Crestor -Continue metoprolol Admission and Anticipated Discharge Date Admission Date: May 09, 2023 Subjective Patient reports no new symptoms. Review of Systems Review of Systems: All systems reviewed & are unremarkable except as noted in HPI & below Physical Exam Physical Exam: General: patient somnolent, arousable, answers questions and follows commands appropriately then falls back to sleep Skin: warm, dry, intact, no rashes or lesions HEENT: NC/AT, PERRL, EOMI, anicteric sclera, conjunctiva without injection, external ear normal to inspection and nontender, nares patent, moist mucus membranes, dentition intact, no oropharyngeal lesions, neck supple, trachea midline, no LAD, no thyromegaly, no JVD, no photophobia, no nuchal rigidity, negative Kernigs/Brudziniskis Heart: +S1/S2, regular, tachycardic, no m/r/g Lungs: equal air entry bilaterally, no rales/rhonchi/wheezes Abd: +BS, soft, NT/ND, no masses/organomegaly/ascites Ext: warm, 2+ pulses in UE/LE bilaterally, no clubbing/cyanosis or edema Neuro: nonfocal, patient AA&O x 4, speech intact, no facial droop, moving all extremities on command with equal strength 5/5 Results & Data Results & Data Vital Signs (Past 12 Hours) Vital Signs Temp Pulse Resp BP Pulse Ox O2 Del Method 05/10/23 20:11 37.1 C 98 H 20 151/67 H 95 Room Air 05/10/23 17:41 37.3 C 104 H 16 125/73 96 Room Air 05/10/23 16:30 37.2 C 105 H 16 144/77 H 96 Room Air 05/10/23 15:32 36.9 C 97 H 16 144/80 H 97 Room Air 05/10/23 15:07 36.8 C 100 H 18 164/84 H 95 Room Air 05/10/23 14:51 101 H 95 Room Air 05/10/23 14:44 36.8 C 100 H 17 152/76 H PG Care Time/CCT Total # of Minutes Spent Total Time Spent with Patient: Total time spent is greater than 50% in coordination of care (as documented) at patient's floor/unit and/or counseling patient: Coding Level of Care Code 84239 SUB INP/OBS CARE 2/35MIN Diagnoses Fever R50.9 Uncontrolled type 2 diabetes mellitus with hyperglycemia E11.65 Hypercholesteremia E78.00 HTN (hypertension) I10 Coronary artery disease I25.10
[2023-05-11] MEDS: VANCOMYCIN HCL 1,000 MG in SODIUM CHLORIDE 0.9% 250 ML IV SCH (02:20)
[2023-05-11 06:10] LABS: Hematocrit (blood only) 34.4 % (37.0-47.0); Hemoglobin 11.4 g/dl (12.0-16.0); Mean Corpuscular Hemoglobin 27.2 pg (25.0-34.0); Mean Corpuscular Hgb Conc 33.1 g/dL (32.0-36.0); Mean Corpuscular Volume 82.1 fL (80.0-100.0); Mean Platelet Volume 9.4 fL (9.4-12.4); Platelet Count 321 K/uL (130-400); RDW Coefficient of Variation 14.3 % (11.5-14.5); RDW Standard Deviation 42.5 fL (36.4-46.3); Red Blood Count 4.19 M/uL (4.20-5.40); White Blood Count 5.71 K/ul (4.8-10.8)
[2023-05-11 06:28] LABS: BUN Creatinine Ratio 14.8 (10-20); C Reactive Protein 6.28 mg/dl (0-0.5); Calcium 8.7 mg/dl (8.6-10.3); Creatinine Clr Calc Pharmacy 64.5 ml/min; Est GFR (African American) 79.9 ml/min; Est GFR (Non-African American) 68.9 ml/min; Potassium 3.8 mmol/L (3.5-5.1)
[2023-05-11] MEDS: ACETAMINOPHEN 325 MG TAB PO PRN (06:33)
[2023-05-11] MEDS: ROSUVASTATIN CALCIUM 10 MG TAB PO SCH (08:05)
[2023-05-11] MEDS: PANTOprazole 40 MG TAB PO SCH (08:05)
[2023-05-11] MEDS: SPIRONOLACTONE 25 MG TAB PO SCH (08:05)
[2023-05-11] MEDS: PRAMIPEXOLE DIHYDROCHLO 0.5 MG TAB PO SCH (08:05)
[2023-05-11] MEDS: LANTUS PER UNIT CHARGE SQ SCH (08:10)
[2023-05-11] MEDS: INSULIN ASPART PER UNIT CHARGE SC SCH ×2 (08:10→12:33)
[2023-05-11 11:14] LABS: Adenovirus F 40/41 PCR Not Detected (NotDetected); Astrovirus PCR Not Detected (NotDetected); Campylobacter PCR Not Detected (NotDetected); Cryptosporidium PCR Not Detected (NotDetected); Cyclospora cayetanensis PCR Not Detected (NotDetected); Entamoeba histolytica PCR Not Detected (NotDetected); Enteroaggregative E.coli(EAEC) Not Detected (NotDetected); Enteropathogenic E.coli (EPEC) Not Detected (NotDetected); Enterotoxigenic E.coli (ETEC) Not Detected (NotDetected); Giardia lamblia PCR Not Detected (NotDetected); Norovirus GI/GII PCR Not Detected (NotDetected); Plesiomonas shigelloides PCR Not Detected (NotDetected); Rotavirus A PCR Not Detected (NotDetected); Salmonella PCR Not Detected (NotDetected); Sapovirus PCR Not Detected (NotDetected); Shiga-like Toxin E.coli (STEC) Not Detected (NotDetected); Shigella/Enteroinvasive E.coli Not Detected (NotDetected); Vibrio cholerae PCR Not Detected (NotDetected); Vibrio species PCR Not Detected (NotDetected); Yersinia enterocolitica PCR Not Detected (NotDetected)
[2023-05-11] MEDS ORDERED: CIPROFLOXACIN 500 MG TAB PO SCH (11:45)
--- NOTE | 2023-05-11 11:49 | Infectious Disease Progress Nt ---
Date of Service May 11, 2023 Assessment & Plan (1) Fever: (2) Sepsis: Plan Micro: 05/10 CSF cx: NGTD. GS--pending. 05/09 UCx: >100K Pseudomonas (méndez-sensitive) 05/09 BCx x2: NGTD Abx: Vanc 05/09 - present Ceftriaxone 05/09 - present Doxycycline 05/09 - 05/10 Problems: #Fever: last on 05/09 #UCx with Pseudomonas 67 yo F with history of CAD s/p stent, CHF, HTN, HLD, DM who presented on 05/09 with fevers, myalgias. Pt was recently admitted 04/23-04/26 with sepsis thought due to a urinary source. At that hospitalization, pt was febrile, tachycardic, WBC 14.3, lactate 2.5, and reported dysuria and urinary urgency/frequency x 1 week. UCx grew mixed richie. She was given ceftriaxone then switched to pip-tazo, then discharged on cefdinir 300 mg PO BID x 7 days. Patient reports that her urinary symptoms completely resolved. However, over the last 3 days, she had been feeling unwell, had an episode of bilateral LE weakness L>R, fatigue, fever, confusion, diffuse myalgias. On presentation, pt was febrile to 38.3, HR 90s-120s. Labs showed WBC 6.6, plt 411, baseline creatinine, normal LFTs, procalcitonin 0.14. UA with 10-20 WBCs, over 30 epithelial cells. RVP negative. Lyme screen negative. Anaplasma/Babesia smear negative. Anaplasma PCR pending. CT, chest x-ray, CT A/P with contrast negative. Patient was started on vanc, ceftriaxone, doxycycline. Lumbar puncture on 05/10 showed CSF WBC 6, RBC 1, protein 42.1, glucose 79, meningitis/encephalitis PCR panel negative. CSF Lyme PCR and West Nile virus IgM also sent. ROS is negative for URI symptoms, abd pain, dysuria, rash. Recent diarrhea has resolved. Social history unremarkable--no recent travel, no sick contacts, no tick exposures. UCx grew Pseudomonas. Interestingly, pt has not been covered for this during her hospitalization, but fever has resolved. Recommendations: -Can discontinue vanc, ceftriaxone -Start ciprofloxacin 500 mg q12h. Complete 7 day course Will sign off. Please page [facility] with further questions. Admission and Anticipated Discharge Date Admission Date: May 09, 2023 Subjective This patient recommendation is based on a telemedicine consult request which was completed asynchronously through chart review and information provided by the primary physician. The patient was not seen or examined today. The evaluation is consultative in nature and all patient care and treatment decisions can either be accepted or rejected by the patient's primary hospital-based treating physician using their own independent medical judgment for their patient. Time Spent Reviewing Chart: 11 - 20 minutes UCx growing méndez-sensitive Pseudomonas CSF meningitis/encephalitis PCR panel negative Stool PCR panel negative Review of System Pt was not seen Physical Exam Physical Exam: Pt was not seen Results & Data Vital Signs (Past 12 Hours) Vital Signs Temp Pulse Resp BP Pulse Ox O2 Del Method 05/11/23 06:54 37.2 C 82 18 106/64 97 Room Air Laboratory Results Short CBC 05/11/23 Range/Units 05:32 WBC 5.71 (4.8-10.8) K/ul Hgb 11.4 L (12.0-16.0) g/dl Hct 34.4 L (37.0-47.0) % Plt Count 321 (130-400) K/uL BMP 05/11/23 05:32 Sodium 136 Potassium 3.8 Chloride 103 Carbon Dioxide 24 BUN 13 Creatinine 0.88 Glucose 116 H Calcium 8.7 Medications Administered Current Inpatient Medications Acetaminophen (Acetaminophen 325 Mg Tab) 650 mg PO Q4H PRN PRN Reason: pain/fever Stop: 06/09/23 00:28 Last Admin: 05/11/23 06:33 Dose: 650 mg Dextrose (Dextrose 50% 50 Ml Syringe) 25 - 50 ml IV UD PRN; Protocol PRN Reason: Hypoglycemia Protocol Stop: 06/09/23 00:28 Glucagon (Glucagon For Inj 1 Mg Vial) 1 mg SQ UD PRN; Protocol PRN Reason: Hypoglycemia Protocol Stop: 06/09/23 00:28 Glucose (Glucose 40% Gel 15 Gm Tube) 15 - 30 gm PO UD PRN; Protocol PRN Reason: Hypoglycemia Protocol Stop: 06/09/23 00:28 Glucose (Glucose 10 Tab/Tube) 4 - 8 tab PO UD PRN; Protocol PRN Reason: Hypoglycemia Treatment Stop: 06/09/23 00:28 Ceftriaxone Sodium 2,000 mg/ (Dextrose) 70 mls @ 100 mls/hr IV Q24H [facility]; Protocol Stop: 05/12/23 18:59 Last Infusion: 05/10/23 19:43 Dose: Infused Vancomycin HCl 1,000 mg/ (Sodium Chloride) 270 mls @ 200 mls/hr IV Q12H [facility] Stop: 05/11/23 23:59 Last Infusion: 05/11/23 03:45 Dose: Infused Insulin Aspart (Insulin Aspart Per Unit Charge) 0 units SC ACHS [facility] Stop: 06/09/23 00:28 Last Admin: 05/11/23 08:10 Dose: 3 units Insulin Glargine (Lantus Per Unit Charge) 15 units SQ BID [facility] Stop: 06/09/23 00:28 Last Admin: 05/11/23 08:10 Dose: 15 units Metoprolol Succinate (Metoprolol Succ 50mg Ext Rel Tab) 200 mg PO PM [facility] Stop: 06/09/23 00:28 Last Admin: 05/10/23 20:45 Dose: 200 mg Miscellaneous (Carbohydrates For Hypoglycemia ) 15 - 30 gm PO UD PRN PRN Reason: Hypoglycemia Protocol Stop: 06/09/23 00:28 Miscellaneous Information (Vancomycin Consult Active) 1 each N/A UD PRN PRN Reason: Consult Stop: 05/11/23 23:59 Ondansetron HCl (Ondansetron Inj 2 Mg/Ml 2 Ml Vial) 4 mg IV Q6H PRN PRN Reason: Nausea Stop: 06/09/23 00:28 Pantoprazole Sodium (Pantoprazole 40 Mg Tab) 40 mg PO DAILY [facility] Stop: 06/09/23 08:59 Last Admin: 05/11/23 08:05 Dose: 40 mg Pramipexole Dihydrochloride (Pramipexole Dihydrochlo 0.5 Mg Tab) 0.5 mg PO BID [facility] Stop: 06/09/23 08:59 Last Admin: 05/11/23 08:05 Dose: 0.5 mg Rosuvastatin Calcium (Rosuvastatin Calcium 10 Mg Tab) 10 mg PO QAM [facility] Stop: 06/09/23 08:59 Last Admin: 05/11/23 08:05 Dose: 10 mg Spironolactone (Spironolactone 25 Mg Tab) 50 mg PO QAM [facility] Stop: 06/09/23 08:59 Last Admin: 05/11/23 08:05 Dose: 50 mg
--- NOTE | 2023-05-11 14:05 | Discharge Summary ---
Date of Service May 11, 2023 Admission HPI Per Admitting Provider Lillian Anders is a 67yo female with history of CAD s/p stent, HTN, HLP, DM presenting with fever and generalized illness. Patient initially presented to [facility] on 04/23/23 with complaint of intermittent LLE weakness and lethargy with fever. She had a workup performed which was suggestive of sepsis secondary to urinary source. She was treated with Ceftriaxone and ultimately transferred to [facility] due to report of neurological deficit. When she arrived to [facility] she was found to be more altered. WBC elevated at 12.5. CRP elevated at 14.63. Procalcitonin mildly elevated at 0.53. She was treated with Zosyn, IVF and insulin. She had a brain MRI performed on 04/23/23 which revealed mild T2/FLAIR thought to likely represent chronic microvascular ischemic changes. She had an echocardiogram performed on 04/26/23 which was normal, EF of 65-70%. Blood cultures were NEGATIVE and Urine culture revealed mixed richie. Patient clinically improved and she was discharged home on 04/26/23 on Cefdinir x 7 days which she completed. Patient reports that she felt a little bit better after returning home. However, over the last 3 days she has not been feeling well. She reports intermittent diarrhea over the last 3 days - dark in color, non-bloody/non-mucoid. This afternoon she had an episode of bilateral leg weakness, L>R, fatigue, fever and confusion as well as diffuse body aches and pain. She was unable to state the date or the president. No headache or neck stiffness. No falls or trauma. She denies abdominal pain, rectal pain or distention/bloating. Denies chest pain, cough, SOB or palpitations. Denies nausea/vomiting. No rash or joint inflammation. No urinary complaints. No sore throat/facial pain/dental pain No sick contacts or recent travel. She lives at home with her . Two dogs. No known tick exposure or mosquito bites. They are on well water at home. In the ER patient febrile, tachycardic ER Course: Tylenol Ceftriaxone NSS x 3L Principal Diagnosis complicated UTI Discharge Exam General: patient somnolent, arousable, answers questions and follows commands appropriately then falls back to sleep Skin: warm, dry, intact, no rashes or lesions HEENT: NC/AT, PERRL, EOMI, anicteric sclera, conjunctiva without injection, external ear normal to inspection and nontender, nares patent, moist mucus membranes, dentition intact, no oropharyngeal lesions, neck supple, trachea midline, no LAD, no thyromegaly, no JVD, no photophobia, no nuchal rigidity, negative Kernigs/Brudziniskis Heart: +S1/S2, regular, tachycardic, no m/r/g Lungs: equal air entry bilaterally, no rales/rhonchi/wheezes Abd: +BS, soft, NT/ND, no masses/organomegaly/ascites Ext: warm, 2+ pulses in UE/LE bilaterally, no clubbing/cyanosis or edema Neuro: nonfocal, patient AA&O x 4, speech intact, no facial droop, moving all extremities on command with equal strength 5/5 Discharge Data Allergies Allergy/AdvReac Type Severity Reaction Status Date / Time bee venom protein (honey bee) Allergy Verified 05/09/23 18:48 Consultations 05/10/23 11:31 Consult Infectious Diseases Routine Ordered Studies 05/09/23 16:05 CT head/brain wo con Stat 05/09/23 18:52 CT Abd and Pelvis [CT abd pelvis IV con only] Stat 05/10/23 00:29 IR lumbar puncture diagnostic Routine Hospital Course (1) Fever: Sepsis POA Metabolic encephalopathy 67yo female with history of CAD, HTN, HLP and DM presenting with fever, tachycardia and somnolence/AMS. Etiology uncertain. She was recently treated with several days of Zosyn followed by Cefdinir. UA, CT abdomen and CXR with no obvious source of infection. ?tick borne illness ?encephalitis workup was negative for tick borne illness, encephalitis. Initially on doxy, vano, ceftriaxone. Given patient's history of urinary urgency which was acute and urine studies, this is likely a complicated UTI. Urine culture showed pseudomonas sensitive to Fluoroquinolone will complete a 7 day course, first dose 8/11 AM Discussed risk of clostridium difficile and tendinopathy to patient. (2) Uncontrolled type 2 diabetes mellitus with hyperglycemia: Chronic. Uncontrolled. Last HgbA1C on 04/23/23 elevated at 13.9 -will resume home dose and recommend close followup with PCP. (3) Hypercholesteremia: Chronic. Stable -Crestor 10mg po qAM (4) HTN (hypertension): Blood pressure elevated at 162/88 -Continue metoprolol -Continue Spironolactone (5) Coronary artery disease: Chronic. Stable. Patient denies chest pain. Troponin is within normal limits at 3.8 -ASA 81mg po daily - on hold for LP - can resume tomorrow -Plavix 75mg po daily - on hold for LP - can resume tomorrow -Continue Crestor -Continue metoprolol Total Time Total Time Spent Total Time Spent (In Minutes): 32 Discharge Plan Discharge Items Patient Disposition: Home - Self-Care Reason For Visit: FEVER Discharge Diagnosis: complicated UTI Activity: Resume your previous activity Non-emergency contact: Primary Care Provider Call non-emergency contact if: you have any medication questions Follow-up/Referrals: Akilah Cook PA-C [Primary Care Provider] - 05/16/23 2:00 pm Diet: Carb Consistent or DM2 Addtl Attending Provider Instructions: recommend close followup with PCP in 1-2 weeks. Please take antibiotics fo 13 more doses. Next dose is tonight. Pending Studies at Discharge: No Stand-Alone Forms: My [facility] [employer] Dog, Smoking Cessation Medications and DC Order Prescriptions: New ciprofloxacin HCl 500 mg Tablet 500 mg PO BID Qty: 13 0RF Continued clopidogrel [Plavix] 75 mg tablet 75 mg PO DAILY aspirin [Adult Low Dose Aspirin] 81 mg tablet,delayed release (DR/EC) 81 mg PO DAILY pramipexole [Mirapex] 0.25 mg tablet 0.5 mg PO BID metoprolol succinate 200 mg tablet extended release 24 hr 200 mg PO PM pantoprazole 40 mg Tablet,Delayed Release (Dr/Ec) 40 mg PO DAILY Qty: 0 0RF rosuvastatin 10 mg Tablet 10 mg PO QAM Qty: 30 0RF insulin glargine [Lantus Solostar U-100 Insulin] 100 unit/mL (3 mL) insulin pen 18 unit subcut BID Qty: 15 0RF (DME) pen needle, diabetic [Pen Needle] 32 gauge x 5/32" needle See Rx Instructions .Route Qty: 100 0RF Rx Instructions: BID metformin 500 mg tablet extended release 24 hr 500 mg PO PM Qty: 30 0RF (DME) OneTouch Verio test strips Strip See Rx Instructions .Route Qty: 100 0RF Rx Instructions: TID before meals. (DME) lancets [OneTouch Delica Plus Lancet] 33 gauge misc See Rx Instructions .Route Qty: 100 0RF Rx Instructions: TIDM spironolactone 100 mg tablet 50 mg PO QAM Qty: 30 0RF magnesium oxide 500 mg capsule 500 mg PO DAILY Discharge Orders: Discharge Order (Routine); Ordered 05/11/23 Ordered By: Tomás Dumont/Other Patient Handouts: UTIs Understanding Admission Data Admit Date/Time: 05/09/23 20:46 Attending Provider: Tomás Madera Admit Provider: Ashley Magallanes Primary Care Provider: Akilah Cook Other Providers: Lotus Woodruff ; Sony Harvey ; Trudy Ward ; Aster Hurtado ; Diane Elise ; Heather Dubose ; Marissa Gavin ; Dominic Bello ; Merry Montano Other Interventions: Discharge Summary Assessment (RN) Last Done: 05/11/23 14:27 Coding Level of Care Code 04896 INP/OBS DISCH >30 MIN Diagnoses Fever R50.9 Uncontrolled type 2 diabetes mellitus with hyperglycemia E11.65 Hypercholesteremia E78.00 HTN (hypertension) I10 Coronary artery disease I25.10
[2023-05-14 23:17] LABS: Babesia microti DNA Not Detected (Not Detected)
[2023-05-15 23:04] LABS: Lyme DNA PCR CSF or Synovial Not Detected (Not Detected); Lyme DNA Source CSF
[2023-05-16 13:13] LABS: West Nile Virus, PCR Source CSF; West Nile Virus, PCR, CSF NOT DETECTED (NOT DETECTED)
== END 2023-05-11 15:38 | disposition home or self-care (01) | DRG 871 ==
LOC: ED 15:37 → SUATTDRO 20:46 → 3W 20:46

== ENCOUNTER 2024-08-10 17:59 | Inpatient (IN) ==
--- NOTE | 2024-08-10 18:28 | Emergency Department Note ---
Impression & Plan Urinary tract infection, Low back pain, Sciatica ED Provider Note NAME: EDWARD AMEZCUA AGE: 68 SEX: F : 1955 ARRIVES VIA: Walk-In INFORMANT: Patient, ED PROVIDER(S): Niko De La Paz DO CHIEF COMPLAINT: Back pain HPI: The patient is a 68-year-old female who presented to the emergency department for back pain. The patient states that she is not having problems over the last 4 weeks. The patient has pain that goes into her left leg. She notices left leg weakness. The patient states that she also has problems with urinary incontinence. The patient denies having any fever. She denies having any vomiting. She went to see her family doctor and is still awaiting follow-up from this evaluation. ROS: See above HPI for pertinent positives & negatives. A total of 10 systems reviewed and were otherwise negative. PAST MEDICAL HISTORY: See Below PAST SURGICAL HISTORY: See Below FAMILY HISTORY: See Below SOCIAL HISTORY: See Below HOME MEDICATIONS: See Below ALLERGIES: See Below VITALS: See Below PHYSICAL EXAMINATION: GENERAL: Patient is awake alert in no acute distress patient is resting comfortably and showing no signs of anxiety EYES: The conjunctivae are clear. The pupils are round and reactive. EARS, NOSE, MOUTH AND THROAT: The nose is without any evidence of any deformity. NECK: The neck is nontender and supple. RESPIRATORY: Normal respiratory effort is noted there is no evidence of wheezing rhonchi or rales CARDIOVASCULAR: Regular rate and rhythm noted there no murmurs rubs or gallops normal S1 normal S2. GASTROINTESTINAL: The abdomen is soft. Abdomen is nontender. BACK: There was low lumbar spine tenderness to percussion. There is also tenderness over the left sciatic notch. MUSCULOSKELETAL/EXTREMITIES: There is no evidence of gross deformity full range of motion is noted in the hips and shoulders. SKIN: There is no obvious evidence of any rash. There are no petechiae, pallor or cyanosis noted. NEUROLOGIC: Patient is awake alert and oriented x3. Strength is diminished in the left leg. Patellar tendon reflexes diminished in the left leg. Strength is normal in the right leg with a 1+ patellar tendon reflex in the right leg. Service Line Layer strength was symmetric. There is no facial droop. MEDICAL DECISION MAKING: The patient is a 68-year-old female who presented to the emergency department for an evaluation of back pain. The patient also noticed urinary incontinence. I was concerned that the urinary incontinence could be related to the back pain. She did appear to have some radicular symptoms to the left. I discussed the patient's laboratory and radiographic studies with her. She was treated with IV antibiotics for presumed urinary tract infection noted on urinalysis. Given the patient's continued left-sided symptoms I discussed her condition with the on- call [facility] hospitalist. They have agreed to evaluate the patient in the emergency department for further management and disposition. The patient may require further imaging such as MRI. Triage Nursing notes reviewed. Prior medical records reviewed Vital Signs: reviewed and remarkable for elevated blood pressure. Differential diagnosis: Musculoskeletal, disc herniation, fracture, metastatic disease, cord compression, discitis, sciatica, cauda equina, infection, aortic disease, renal colic, gastrointestinal, as well as other pathologies. ER treatment provided: See below Diagnostics interpreted by me: ECG: EKG was obtained in the emergency department. My interpretation is normal sinus rhythm at 92 bpm. There is no ectopy. There was no acute ST segment abnormalities noted. This was compared to a tracing from April 19, 2024. No changes were noted. Cardiac Monitoring: An order was placed for continuous cardiac monitoring. The monitor shows a rate of 108 bpm with sinus rhythm. Laboratory studies: As stated above and show below. Imaging studies: See below. Radiographic imaging was reviewed by myself Consultation(s): I discussed this case with Dr. Joseph [facility] Past Med/Surg History Problem List (Updated 08/10/24 @ 23:12 by Niko De La Paz DO) Sciatica (Acute) Low back pain (Acute) Urinary tract infection (Acute) Fever (Acute) CHF (congestive heart failure) Acute metabolic encephalopathy Tachycardia Uncontrolled type 2 diabetes mellitus with hyperglycemia Altered mental status Sepsis Lumbar facet joint syndrome Spinal stenosis, lumbar region without neurogenic claudication Lumbago Hypercholesteremia HTN (hypertension) (Acute) Restless leg Coronary artery disease Surgical History History of lumbar surgery L4-5 discectomy Social History Smoking Status: Never smoker Hx Alcohol Use: No Hx Substance Use: No Preferred Language: [place] Communication Ability: Effective Visual Impairment: Limited Hearing Ability: Hard of Hearing 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 Beliefs That Will Affect Care: None marital status: Current Living Situation: Spouse current occupational status: retired Feels Safe at Home: Yes Assistive Devices: Cane Allergies Allergies Allergy/AdvReac Type Severity Reaction Status Date / Time bee venom protein (honey bee) Allergy Severe DIFFICULTY Verified 04/19/24 22:55 BREATHING/HIVES/ITCHY Home Meds Home Medications Medication Instructions Recorded Confirmed aspirin 81 mg tablet,delayed 81 mg PO DAILY 07/06/20 08/10/24 release (Adult Low Dose Aspirin) semaglutide 1 mg/dose (4 mg/3 mL) 1 mg subcut WK 04/01/24 08/10/24 subcutaneous pen injector (Ozempic) pramipexole 0.25 mg tablet 0.5 mg PO BID 04/19/24 08/10/24 rosuvastatin 20 mg tablet 20 mg PO QAM 04/19/24 08/10/24 isosorbide mononitrate 30 mg 30 mg PO QAM 08/10/24 08/10/24 tablet,extended release 24 hr metoprolol succinate 200 mg 200 mg PO QAM 08/10/24 08/10/24 tablet,extended release 24 hr tramadol 50 mg tablet 50 mg PO Q12 PRN Pain 08/10/24 08/10/24 Previous Rx's Medication Instructions Recorded blood sugar diagnostic (OneTouch #100 ea 04/26/23 Verio test strips) lancets 33 gauge (OneTouch Delica #100 ea 04/26/23 Plus Lancet) pen needle, diabetic 32 gauge x #100 ea 04/26/23 5/32" (Pen Needle) spironolactone 100 mg tablet 50 mg (1/2 x 100 mg) PO QAM #30 04/26/23 tabs clopidogrel 75 mg tablet (Plavix) 75 mg PO DAILY #90 tabs 08/21/23 Results & Data (ED) Vital Signs Vital Signs - 24 hr 08/10/24 18:00 08/10/24 18:06 08/10/24 18:37 Temperature 36.8 C Temperature Source Temporal Artery Scan Pulse Rate 104 H 90 Pulse Rate [Right Finger] 92 H Pulse Rhythm Respiratory Rate 18 19 Respiratory Effort / Characteristics Non-Labored Spontaneous Blood Pressure 161/71 H Blood Pressure [Left Arm] 158/84 H Blood Pressure Mean 101 Blood Pressure Mean [Left Arm] 108 Blood Pressure Position [Left Arm] Lying Pulse Oximetry 97 95 Oxygen Delivery Method Room Air Room Air Sepsis Recent Fever Within 48 Hours No Sepsis New/Unexplained Change in Mental Status N/A Sepsis Action Taken by Nursing No Action Required 08/10/24 18:37 08/10/24 20:00 08/10/24 22:00 Temperature Temperature Source Pulse Rate 90 Pulse Rate [Right Finger] 100 H 106 H Pulse Rhythm Regular Respiratory Rate 19 18 16 Respiratory Effort / Characteristics Non-Labored Spontaneous Non-Labored Spontaneous Blood Pressure Blood Pressure [Left Arm] 148/78 H 169/84 H Blood Pressure Mean Blood Pressure Mean [Left Arm] 101 112 Blood Pressure Position [Left Arm] Pulse Oximetry 95 95 95 Oxygen Delivery Method Room Air Room Air Room Air Sepsis Recent Fever Within 48 Hours Sepsis New/Unexplained Change in Mental Status Sepsis Action Taken by Nursing 08/10/24 22:26 Temperature Temperature Source Pulse Rate 108 H Pulse Rate [Right Finger] Pulse Rhythm Respiratory Rate Respiratory Effort / Characteristics Blood Pressure Blood Pressure [Left Arm] Blood Pressure Mean Blood Pressure Mean [Left Arm] Blood Pressure Position [Left Arm] Pulse Oximetry Oxygen Delivery Method Sepsis Recent Fever Within 48 Hours Sepsis New/Unexplained Change in Mental Status Sepsis Action Taken by Jail Medications Current Medication List: was personally reviewed by me Laboratory Data Attestation: I reviewed the patient's lab results. 08/10/24 18:55 08/10/24 18:55 Lab Results 08/10/24 08/10/24 Range/Units 18:55 19:26 WBC 8.21 (4.8-10.8) K/ul RBC 4.77 (4.20-5.40) M/uL Hgb 12.6 (12.0-16.0) g/dl Hct 38.9 (37.0-47.0) % MCV 81.6 (80.0-100.0) fL MCH 26.4 (25.0-34.0) pg MCHC 32.4 (32.0-36.0) g/dL RDW Std Deviation 46.2 (36.4-46.3) fL RDW Coeff of [place] 15.4 H (11.5-14.5) % Plt Count 276 (130-400) K/uL MPV 9.5 (9.4-12.4) fL Immature Gran % (Auto) 0.1 % Neut % (Auto) 63.7 % Lymph % (Auto) 23.3 % [place] % (Auto) 9.5 % Eos % (Auto) 2.8 % Baso % (Auto) 0.6 % Neut # (Auto) 5.23 (1.40-6.50) K/uL Lymph # (Auto) 1.91 (1.20-3.40) K/uL [place] # (Auto) 0.78 H (0.11-0.59) K/uL Eos # (Auto) 0.23 (0.00-0.50) K/uL Baso # (Auto) 0.05 (0.00-0.20) K/uL Immature Gran # (Auto) 0.01 (0.01-0.20) K/uL Sodium 138 (136-145) mmol/L Potassium 4.0 (3.5-5.1) mmol/L Chloride 104 (98-107) mmol/L Carbon Dioxide 26 (21-32) mmol/L Anion Gap 8 (3-11) BUN 16 (6-23) mg/dl Creatinine 0.90 (0.6-1.2) mg/dl Est Cr Clr Drug Dosing Not Reportable eGFR 70.51 BUN/Creatinine Ratio 17.8 (10-20) Glucose 136 H (70-99(Fasting)) mg/dl Calcium 9.4 (8.6-10.3) mg/dl Total Bilirubin 0.5 (0.2-1.0) mg/dl AST 22 (13-39) U/L ALT 23 (7-52) U/L Alkaline Phosphatase 67 (34-104) U/L Troponin I High Sens 5.1 (0-14) pg/ml Total Protein 6.5 (6.0-8.3) gm/dl Albumin 4.0 (3.4-5.0) gm/dl Globulin 2.5 (2.5-4.0) gm/dl Albumin/Globulin Ratio 1.6 (0.9-2) Lipase 22 (11-82) U/L Urine Color Yellow Urine Appearance Turbid A (Clear) Urine pH 7.0 (4.5-7.5) Ur Specific [place] 1.014 (1.000-1.030) Urine Protein 2+ H (Negative) Urine Glucose (UA) Negative (Negative) Urine Ketones Negative (Negative) Urine Blood 3+ H (Negative) Urine Nitrite Negative (Negative) Urine Bilirubin Negative (Negative) Urine Urobilinogen Negative (Negative) Ur Leukocyte Esterase 3+ H (Negative) Urine WBC (Auto) >50 H (0-5) /hpf Urine RBC (Auto) >20 H (0-2) /hpf U Hyaline Cast (Auto) 11-20 H (0-2) /lpf U Epithel Cells (Auto) 0-2 (0-2) /hpf Urine Bacteria (Auto) 3+ H (None Seen) Administered Medications Discontinued Medications Ceftriaxone Sodium (Rocephin) 2,000 mg in 50 mls @ 100 mls/hr IV NOW STA Stop: 08/10/24 21:08 Last Infusion: 08/10/24 21:48 Dose: Infused Documented By: Admin: 08/10/24 20:53 Dose: 100 mls/hr Documented By: TK Ioversol (Optiray 320 100ml) 94 ml IV ONCE ONE Stop: 08/10/24 19:58 Last Admin: 08/10/24 19:57 Dose: 94 ml Documented By: RICKIK Imaging Data Attestation: I personally reviewed and interpreted this imaging study as follows: My Impression: CT the abdomen and pelvis was obtained in the emergency department. My interpretation is no free air, no definite bowel obstruction, final report below. Radiologist's Impression: Abdomen/Pelvis CT 08/10/24 18:23 Exam(s): CT ABDOMEN + PELVIS With Contrast IV Amt: OPTIRAY 320 94ML EXAM: CT Abdomen and Pelvis With Intravenous Contrast CLINICAL HISTORY: Reason for exam: back pain and urinary symptoms. TECHNIQUE: Axial computed tomography images of the abdomen and pelvis with intravenous contrast. CTDI is 27 mGy and DLP is 1228 mGy-cm. Automated exposure control was utilized for the study. A dose lowering technique was utilized adhering to the principles of ALARA. CONTRAST: Patient received OPTIRAY 320 94ML of IV contrast COMPARISON: May 09, 2023 FINDINGS: Lung bases: Unremarkable. No mass. No consolidation. ABDOMEN: Liver: The liver is borderline enlarged measuring 18 cm craniocaudad. No focal liver lesion is seen. Gallbladder and bile ducts: Unremarkable. No calcified stones. No ductal dilation. Pancreas: Unremarkable. No mass. No ductal dilation. Spleen: Unremarkable. No splenomegaly. Adrenals: Unremarkable. No mass. Kidneys and ureters: Unremarkable. No solid mass. No hydronephrosis. Stomach and bowel: Unremarkable. No obstruction. No mucosal thickening. PELVIS: Appendix: No findings to suggest acute appendicitis. Bladder: There is edema and enhancement of the urinary bladder wall. The urinary bladder is nondilated measuring 6 cm in diameter. There are several 3 mm gas bubbles within the urinary bladder. Consider cystitis. Reproductive: There is a 3.6 cm fibroid in the left side of the uterus. No free fluid is seen in the pelvis. ABDOMEN and PELVIS: Intraperitoneal space: See above. Bones/joints: Moderate multilevel degenerative change are seen throughout the spine. No acute fracture or subluxation is seen. Soft tissues: Unremarkable. Vasculature: The abdominal aorta is severely calcified but nondilated. There is no aneurysm or dissection. Lymph nodes: Unremarkable. No enlarged lymph nodes. IMPRESSION: There is edema and enhancement of the urinary bladder wall. The urinary bladder is nondilated measuring 6 cm in diameter. There is a 3 mm gas bubble within the urinary bladder. Consider cystitis. No signs of hydronephrosis or ureterolithiasis. Unremarkable bowel gas pattern. No acute inflammatory changes are identified involving the bowel. Electronically signed by: Freddie Magallanes MD 08/10/24 21:53 PM Discharge Plan Visit Data Chief Complaint: Urinary Symptoms Stated Complaint: BLADDER CONTROL, BACK PAIN, LEF LEG WEAK ED Provider: Niko De La Paz Discharge Problem: Urinary tract infection, Low back pain, Sciatica Patient Disposition: Being Evaluated by Hospitalist Forms Stand Alone Forms: My [facility] Prescriptions Prescriptions: No Action aspirin [Adult Low Dose Aspirin] 81 mg tablet,delayed release (DR/EC) 81 mg PO DAILY clopidogrel [Plavix] 75 mg tablet 75 mg PO DAILY Qty: 90 3RF Ozempic 1 mg/dose (4 mg/3 mL) pen injector 1 mg subcut WK Rx Instructions: (DME) pen needle, diabetic [Pen Needle] 32 gauge x 5/32" needle See Rx Instructions .Route Qty: 100 0RF Rx Instructions: BID (DME) OneTouch Verio test strips Strip See Rx Instructions .Route Qty: 100 0RF Rx Instructions: TID before meals. (DME) lancets [OneTouch Delica Plus Lancet] 33 gauge misc See Rx Instructions .Route Qty: 100 0RF Rx Instructions: TIDM spironolactone 100 mg tablet 50 mg PO QAM Qty: 30 0RF pramipexole 0.25 mg tablet 0.5 mg PO BID rosuvastatin 20 mg tablet 20 mg PO QAM tramadol 50 mg tablet 50 mg PO Q12 PRN (Reason: Pain) metoprolol succinate 200 mg tablet extended release 24 hr 200 mg PO QAM isosorbide mononitrate 30 mg tablet extended release 24 hr 30 mg PO QAM Referrals Referrals: Akilah Cook PA-C [Primary Care Provider] - Discharge Problem: Urinary tract infection Qualifiers: Urinary tract infection type: site unspecified Hematuria presence: without hematuria Qualified Code(s): N39.0 - Urinary tract infection, site not specified Low back pain Qualifiers: Chronicity: acute Back pain laterality: left Sciatica presence: with sciatica S ciatica laterality: sciatica of left side Qualified Code(s): M54.42 - Lumbago with sciatica, left side Sciatica Qualifiers: Laterality: left Qualified Code(s): M54.32 - Sciatica, left side
[2024-08-10 19:20] LABS: Basophils # (auto) 0.05 K/uL (0.00-0.20); Basophils % (auto) 0.6 %; Eosinophils # (auto) 0.23 K/uL (0.00-0.50); Eosinophils % (auto) 2.8 %; Hematocrit (blood only) 38.9 % (37.0-47.0); Hemoglobin 12.6 g/dl (12.0-16.0); Immature Granulocytes # (auto) 0.01 K/uL (0.01-0.20); Immature Granulocytes % (auto) 0.1 %; Lymphocytes # (auto) 1.91 K/uL (1.20-3.40); Lymphocytes % (auto) 23.3 %; Mean Corpuscular Hemoglobin 26.4 pg (25.0-34.0); Mean Corpuscular Hgb Conc 32.4 g/dL (32.0-36.0); Mean Corpuscular Volume 81.6 fL (80.0-100.0); Mean Platelet Volume 9.5 fL (9.4-12.4); Monocytes # (auto) 0.78 K/uL (0.11-0.59); Monocytes % (auto) 9.5 %; Neutrophils # (auto) 5.23 K/uL (1.40-6.50); Neutrophils % (auto) 63.7 %; Platelet Count 276 K/uL (130-400); RDW Coefficient of Variation 15.4 % (11.5-14.5); RDW Standard Deviation 46.2 fL (36.4-46.3); Red Blood Count 4.77 M/uL (4.20-5.40); White Blood Count 8.21 K/ul (4.8-10.8)
[2024-08-10 19:41] LABS: Alanine Aminotransferase 23 U/L (7-52); Albumin Globulin Ratio 1.6 (0.9-2); Alkaline Phosphatase 67 U/L (34-104); Anion Gap 8 (3-11); Aspartate Aminotransferase 22 U/L (13-39); BUN Creatinine Ratio 17.8 (10-20); Bilirubin,Total 0.5 mg/dl (0.2-1.0); Blood Urea Nitrogen 16 mg/dl (6-23); Calcium 9.4 mg/dl (8.6-10.3); Carbon Dioxide 26 mmol/L (21-32); Chloride 104 mmol/L (98-107); Globulin 2.5 gm/dl (2.5-4.0); Glucose 136 mg/dl (70-99(Fasting)); Lipase 22 U/L (11-82); Sodium 138 mmol/L (136-145); Total Protein 6.5 gm/dl (6.0-8.3)
[2024-08-10 19:47] LABS: Troponin I High Sensitivity 5.1 pg/ml (0-14)
[2024-08-10] MEDS: OPTIRAY 320 100ml IV ONE (19:57)
[2024-08-10 20:04] LABS: Appearance Urine Turbid (Clear); Bacteria Urine Automated 3+ (None Seen); Bilirubin Urine Negative (Negative); Blood Urine 3+ (Negative); Color Urine Yellow; Epithelial Cell Urine Auto 0-2 /hpf (0-2); Glucose Urine UA Negative (Negative); Ketones Urine Negative (Negative); Leukocyte Esterase Urine 3+ (Negative); Nitrite Urine Negative (Negative); Protein Urine 2+ (Negative); RBC Urine Automated >20 /hpf (0-2); Specific Gravity Urine 1.014 (1.000-1.030); Urobilinogen Urine Negative (Negative); WBC Urine Automated >50 /hpf (0-5)
[2024-08-10] MEDS: cefTRIAXone SODIUM 2,000 MG/50 ML BAG IV STA (20:53)
--- NOTE | 2024-08-10 21:53 | CT Scan Report ---
Exam(s): CT ABDOMEN + PELVIS With Contrast IV Amt: OPTIRAY 320 94ML EXAM: CT Abdomen and Pelvis With Intravenous Contrast CLINICAL HISTORY: Reason for exam: back pain and urinary symptoms. TECHNIQUE: Axial computed tomography images of the abdomen and pelvis with intravenous contrast. CTDI is 27 mGy and DLP is 1228 mGy-cm. Automated exposure control was utilized for the study. A dose lowering technique was utilized adhering to the principles of ALARA. CONTRAST: Patient received OPTIRAY 320 94ML of IV contrast COMPARISON: May 09, 2023 FINDINGS: Lung bases: Unremarkable. No mass. No consolidation. ABDOMEN: Liver: The liver is borderline enlarged measuring 18 cm craniocaudad. No focal liver lesion is seen. Gallbladder and bile ducts: Unremarkable. No calcified stones. No ductal dilation. Pancreas: Unremarkable. No mass. No ductal dilation. Spleen: Unremarkable. No splenomegaly. Adrenals: Unremarkable. No mass. Kidneys and ureters: Unremarkable. No solid mass. No hydronephrosis. Stomach and bowel: Unremarkable. No obstruction. No mucosal thickening. PELVIS: Appendix: No findings to suggest acute appendicitis. Bladder: There is edema and enhancement of the urinary bladder wall. The urinary bladder is nondilated measuring 6 cm in diameter. There are several 3 mm gas bubbles within the urinary bladder. Consider cystitis. Reproductive: There is a 3.6 cm fibroid in the left side of the uterus. No free fluid is seen in the pelvis. ABDOMEN and PELVIS: Intraperitoneal space: See above. Bones/joints: Moderate multilevel degenerative change are seen throughout the spine. No acute fracture or subluxation is seen. Soft tissues: Unremarkable. Vasculature: The abdominal aorta is severely calcified but nondilated. There is no aneurysm or dissection. Lymph nodes: Unremarkable. No enlarged lymph nodes. IMPRESSION: There is edema and enhancement of the urinary bladder wall. The urinary bladder is nondilated measuring 6 cm in diameter. There is a 3 mm gas bubble within the urinary bladder. Consider cystitis. No signs of hydronephrosis or ureterolithiasis. Unremarkable bowel gas pattern. No acute inflammatory changes are identified involving the bowel. Electronically signed by: Freddie Magallanes MD 08/10/24 21:53 PM
[2024-08-10] MEDS: traMADol HCL 50 MG TABLET PO STA (23:37)
--- NOTE | 2024-08-10 23:39 | History & Physical Report ---
Date of Service August 10, 2024 Assessment & Plan (1) Urinary tract infection: (2) Failure of outpatient treatment: (3) Restless leg: (4) HTN (hypertension): (5) Coronary artery disease: Plan Urinary tract infection with failure of outpatient treatment- Follow urine culture and sensitivity Patient reports being on a 10-day course of unknown antibiotic about 2 weeks ago by urology from [place] Empiric ceftriaxone 2 g IV daily Acetaminophen 650 mg by mouth every 4 hours as needed for mild pain or fever Tramadol 50 mg by mouth every 6 hours as needed for moderate pain Morphine sulfate 2 mg IV every 3 hours as needed for severe pain Zofran 4 mg IV every 6 hours as needed CAD/hypertension- Continue current, clopidogrel, isosorbide mononitrate, metoprolol succinate Hold spironolactone Diabetes mellitus- Hold semaglutide Place on Accu-Cheks with NovoLog SSI History of Present Illness Chief Complaint: The patient presents to the emergency department with complaint of back pain that began about 4 weeks ago, and has gradually worsened. She more recently has developed urinary incontinence. She was treated for a urinary tract infection by urology in [place] about 2 weeks ago with a 10-day course of antibiotics, but continues have worsening symptoms. Primary Care Provider: Akilah Cook PA-C The patient is a 68-year-old female with a past medical history including urinary tract infections, CHF, acute metabolic encephalopathy, uncontrolled diabetes mellitus type 2, lumbar facet joint syndrome, lumbar spinal stenosis, hypercholesterolemia, hypertension, restless leg syndrome, and coronary disease. She presents to the emergency department with worsening symptoms of back and pelvic pain, urinary incontinence, and failure of outpatient treatment. Allergies Allergy/AdvReac Type Severity Reaction Status Date / Time bee venom protein (honey bee) Allergy Severe DIFFICULTY Verified 04/19/24 22:55 BREATHING/HIVES/ITCHY Home Medications Medication Instructions Recorded Confirmed Type aspirin 81 mg tablet,delayed 81 mg PO DAILY 07/06/20 08/10/24 History release (Adult Low Dose Aspirin) blood sugar diagnostic (OneTouch #100 ea 04/26/23 08/10/24 Rx Verio test strips) lancets 33 gauge (OneTouch Delica #100 ea 04/26/23 08/10/24 Rx Plus Lancet) pen needle, diabetic 32 gauge x #100 ea 04/26/23 08/10/24 Rx 5/32" (Pen Needle) spironolactone 100 mg tablet 50 mg (1/2 x 100 mg) PO QAM #30 04/26/23 08/10/24 Rx tabs clopidogrel 75 mg tablet (Plavix) 75 mg PO DAILY #90 tabs 08/21/23 08/10/24 Rx semaglutide 1 mg/dose (4 mg/3 mL) 1 mg subcut WK 04/01/24 08/10/24 History subcutaneous pen injector (Ozempic) pramipexole 0.25 mg tablet 0.5 mg PO BID 04/19/24 08/10/24 History rosuvastatin 20 mg tablet 20 mg PO QAM 04/19/24 08/10/24 History isosorbide mononitrate 30 mg 30 mg PO QAM 08/10/24 08/10/24 History tablet,extended release 24 hr metoprolol succinate 200 mg 200 mg PO QAM 08/10/24 08/10/24 History tablet,extended release 24 hr tramadol 50 mg tablet 50 mg PO Q12 PRN Pain 08/10/24 08/10/24 History Past Med/Surg History Problem List (Updated 08/11/24 @ 02:38 by Shade Nascimento MD) Failure of outpatient treatment Sciatica (Acute) Low back pain (Acute) Urinary tract infection (Acute) Fever (Acute) CHF (congestive heart failure) Acute metabolic encephalopathy Tachycardia Uncontrolled type 2 diabetes mellitus with hyperglycemia Altered mental status Sepsis Lumbar facet joint syndrome Spinal stenosis, lumbar region without neurogenic claudication Lumbago Hypercholesteremia HTN (hypertension) (Acute) Restless leg Coronary artery disease Surgical History History of lumbar surgery L4-5 discectomy Social History Smoking Status: Never smoker Hx Alcohol Use: No Hx Substance Use: No Preferred Language: Pashto Communication Ability: Effective Visual Impairment: Limited Hearing Ability: Hard of Hearing 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 Beliefs That Will Affect Care: None marital status: Current Living Situation: Spouse current occupational status: retired Feels Safe at Home: Yes Assistive Devices: Cane Review of Systems Review of Systems: The patient denies chest pain, palpitations, shortness of breath, dyspnea on exertion, cough, lower extremity swelling, sore throat, fevers, chills, sweats, nausea, vomiting, diarrhea , constipation, blood in urine or stool, lightheadedness, dizziness, headache, memory loss, loss of consciousness, rash, abnormal bruising or bleeding, imbalance, focal or generalized weakness, numbness or tingling in arms or legs, generalized arthralgias or myalgias, neck pain, or night sweats. The review of systems is otherwise negative other than for that already noted above, and at least 10 systems have been reviewed. Physical Exam Physical Exam: The patient is awake, alert and oriented 3, well developed and well nourished, normocephalic and atraumatic, lying in bed and in mild distress to pelvic and low back discomfort HEENT--PERRL, EOMI, mucous membranes and oropharynx normal Neck--supple. No JVD. No bruits. Thyroid normal, trachea midline, no adenopathy. Heart--normal S1 and S2. No murmurs, rubs or gallops. Lungs--clear bilaterally, no respiratory distress, no accessory muscle use. Abdomen--normal bowel sounds and soft. Nontender. Nondistended, no hernias or masses, no organomegaly. Extremities--no cyanosis or clubbing. No edema. Dermatologic--normal skin turgor, normal color, no abnormal lymph nodes, no rash. Neurologic--cranial nerves II through XII grossly intact. Rheumatologic--normal range of motion. Psychiatric--normal affect. Results & Data Results & Data Vital Signs (Past 12 Hours) Vital Signs Temp Pulse Pulse Resp BP BP Pulse Ox 08/10/24 22:26 108 H 08/10/24 22:00 106 H 16 169/84 H 95 08/10/24 20:00 100 H 18 148/78 H 95 08/10/24 18:37 90 19 95 08/10/24 18:37 90 08/10/24 18:06 36.8 C 104 H 19 161/71 H 95 08/10/24 18:00 92 H 18 158/84 H 97 O2 Del Method 08/10/24 22:26 08/10/24 22:00 Room Air 08/10/24 20:00 Room Air 08/10/24 18:37 Room Air 08/10/24 18:37 08/10/24 18:06 Room Air 08/10/24 18:00 Room Air Laboratory Results Laboratory Results WBC 8.21 K/ul (4.8-10.8) 08/10/24 18:55 RBC 4.77 M/uL (4.20-5.40) 08/10/24 18:55 Hgb 12.6 g/dl (12.0-16.0) 08/10/24 18:55 Hct 38.9 % (37.0-47.0) 08/10/24 18:55 MCV 81.6 fL (80.0-100.0) 08/10/24 18:55 MCH 26.4 pg (25.0-34.0) 08/10/24 18:55 MCHC 32.4 g/dL (32.0-36.0) 08/10/24 18:55 RDW Std Deviation 46.2 fL (36.4-46.3) 08/10/24 18:55 RDW Coeff of [place] 15.4 % (11.5-14.5) H 08/10/24 18:55 Plt Count 276 K/uL (130-400) 08/10/24 18:55 MPV 9.5 fL (9.4-12.4) 08/10/24 18:55 Immature Gran % (Auto) 0.1 % 08/10/24 18:55 Neut % (Auto) 63.7 % 08/10/24 18:55 Lymph % (Auto) 23.3 % 08/10/24 18:55 [place] % (Auto) 9.5 % 08/10/24 18:55 Eos % (Auto) 2.8 % 08/10/24 18:55 Baso % (Auto) 0.6 % 08/10/24 18:55 Neut # (Auto) 5.23 K/uL (1.40-6.50) 08/10/24 18:55 Lymph # (Auto) 1.91 K/uL (1.20-3.40) 08/10/24 18:55 [place] # (Auto) 0.78 K/uL (0.11-0.59) H 08/10/24 18:55 Eos # (Auto) 0.23 K/uL (0.00-0.50) 08/10/24 18:55 Baso # (Auto) 0.05 K/uL (0.00-0.20) 08/10/24 18:55 Immature Gran # (Auto) 0.01 K/uL (0.01-0.20) 08/10/24 18:55 Sodium 138 mmol/L (136-145) 08/10/24 18:55 Potassium 4.0 mmol/L (3.5-5.1) 08/10/24 18:55 Chloride 104 mmol/L (98-107) 08/10/24 18:55 Carbon Dioxide 26 mmol/L (21-32) 08/10/24 18:55 Anion Gap 8 (3-11) 08/10/24 18:55 BUN 16 mg/dl (6-23) 08/10/24 18:55 Creatinine 0.90 mg/dl (0.6-1.2) 08/10/24 18:55 Est Cr Clr Drug Dosing Not Reportable 08/10/24 18:55 eGFR 70.51 08/10/24 18:55 BUN/Creatinine Ratio 17.8 (10-20) 08/10/24 18:55 Glucose 136 mg/dl (70-99(Fasting)) H 08/10/24 18:55 POC Glucose 126 mg/dl (70-99) H 08/10/24 23:29 Calcium 9.4 mg/dl (8.6-10.3) 08/10/24 18:55 Total Bilirubin 0.5 mg/dl (0.2-1.0) 08/10/24 18:55 AST 22 U/L (13-39) 08/10/24 18:55 ALT 23 U/L (7-52) 08/10/24 18:55 Alkaline Phosphatase 67 U/L (34-104) 08/10/24 18:55 Troponin I High Sens 5.1 pg/ml (0-14) 08/10/24 18:55 Total Protein 6.5 gm/dl (6.0-8.3) 08/10/24 18:55 Albumin 4.0 gm/dl (3.4-5.0) 08/10/24 18:55 Globulin 2.5 gm/dl (2.5-4.0) 08/10/24 18:55 Albumin/Globulin Ratio 1.6 (0.9-2) 08/10/24 18:55 Lipase 22 U/L (11-82) 08/10/24 18:55 Urine Color Yellow 08/10/24 19:26 Urine Appearance Turbid (Clear) A 08/10/24 19:26 Urine pH 7.0 (4.5-7.5) 08/10/24 19:26 Ur Specific [place] 1.014 (1.000-1.030) 08/10/24 19:26 Urine Protein 2+ (Negative) H 08/10/24 19:26 Urine Glucose (UA) Negative (Negative) 08/10/24 19:26 Urine Ketones Negative (Negative) 08/10/24 19:26 Urine Blood 3+ (Negative) H 08/10/24 19: Urine Nitrite Negative (Negative) 08/10/24 19: Urine Bilirubin Negative (Negative) 08/10/24 19: Urine Urobilinogen Negative (Negative) 08/10/24 19:26 Ur Leukocyte Esterase 3+ (Negative) H 08/10/24 19:26 Urine WBC (Auto) >50 /hpf (0-5) H 08/10/24 19:26 Urine RBC (Auto) >20 /hpf (0-2) H 08/10/24 19:26 U Hyaline Cast (Auto) 11-20 /lpf (0-2) H 08/10/24 19:26 U Epithel Cells (Auto) 0-2 /hpf (0-2) 08/10/24 19:26 Urine Bacteria (Auto) 3+ (None Seen) H 08/10/24 19:26 Impressions Abdomen/Pelvis CT 08/10/24 18:23 Exam(s): CT ABDOMEN + PELVIS With Contrast IV Amt: OPTIRAY 320 94ML EXAM: CT Abdomen and Pelvis With Intravenous Contrast CLINICAL HISTORY: Reason for exam: back pain and urinary symptoms. TECHNIQUE: Axial computed tomography images of the abdomen and pelvis with intravenous contrast. CTDI is 27 mGy and DLP is 1228 mGy-cm. Automated exposure control was utilized for the study. A dose lowering technique was utilized adhering to the principles of ALARA. CONTRAST: Patient received OPTIRAY 320 94ML of IV contrast COMPARISON: May 09, 2023 FINDINGS: Lung bases: Unremarkable. No mass. No consolidation. ABDOMEN: Liver: The liver is borderline enlarged measuring 18 cm craniocaudad. No focal liver lesion is seen. Gallbladder and bile ducts: Unremarkable. No calcified stones. No ductal dilation. Pancreas: Unremarkable. No mass. No ductal dilation. Spleen: Unremarkable. No splenomegaly. Adrenals: Unremarkable. No mass. Kidneys and ureters: Unremarkable. No solid mass. No hydronephrosis. Stomach and bowel: Unremarkable. No obstruction. No mucosal thickening. PELVIS: Appendix: No findings to suggest acute appendicitis. Bladder: There is edema and enhancement of the urinary bladder wall. The urinary bladder is nondilated measuring 6 cm in diameter. There are several 3 mm gas bubbles within the urinary bladder. Consider cystitis. Reproductive: There is a 3.6 cm fibroid in the left side of the uterus. No free fluid is seen in the pelvis. ABDOMEN and PELVIS: Intraperitoneal space: See above. Bones/joints: Moderate multilevel degenerative change are seen throughout the spine. No acute fracture or subluxation is seen. Soft tissues: Unremarkable. Vasculature: The abdominal aorta is severely calcified but nondilated. There is no aneurysm or dissection. Lymph nodes: Unremarkable. No enlarged lymph nodes. IMPRESSION: There is edema and enhancement of the urinary bladder wall. The urinary bladder is nondilated measuring 6 cm in diameter. There is a 3 mm gas bubble within the urinary bladder. Consider cystitis. No signs of hydronephrosis or ureterolithiasis. Unremarkable bowel gas pattern. No acute inflammatory changes are identified involving the bowel. Electronically signed by: Freddie Magallanes MD 08/10/24 21:53 PM Code Status & VTE Plan Code Status Full code VTE Prophylaxis Plan VTE Prophylaxis will be ordered: Yes PG Care Time/CCT Total # of Minutes Spent Total Time Spent with Patient: Total time spent is greater than 50% in coordination of care (as documented) at patient's floor/unit and/or counseling patient: Coding Level of Care Code 67382 INT INP/OBS CARE 3/75MIN Diagnoses Urinary tract infection N39.0 Hematuria presence: without hematuria Urinary tract infection type: site unspecified Failure of outpatient treatment Z78.9 Restless leg G25.81 HTN (hypertension) I10 Hypertension type: unspecified Coronary artery disease I25.10 (1) Urinary tract infection Hematuria presence: without hematuria Urinary tract infection type: site unspecified Qualified Code(s): N39.0 - Urinary tract infection, site not specified (4) HTN (hypertension) Hypertension type: unspecified Qualified Code(s): I10 - Essential (primary) hypertension
[2024-08-11] MEDS: MoRPHine SULFATE 2 MG/ML CARP IV PRN (00:17)
[2024-08-11] MEDS: PHENAZOPYRIDINE HCL 200 MG TAB PO PRN (02:34)
[2024-08-11] MEDS: METOPROLOL TARTRATE 1 MG/ML VIAL IV STA (02:41)
[2024-08-11] MEDS ORDERED: GLUCOSE 40% GEL 15 GM TUBE PO PRN (02:42)
[2024-08-11] MEDS ORDERED: DEXTROSE 50% 50 ML SYRINGE IV PRN (02:42)
[2024-08-11] MEDS ORDERED: GLUCOSE 10 TAB/TUBE PO PRN (02:42)
[2024-08-11] MEDS ORDERED: CARBOHYDRATES FOR HYPOGLYCEMIA PO PRN (02:42)
[2024-08-11] MEDS ORDERED: GLUCAGON FOR INJ 1 MG VIAL SQ PRN (02:42)
[2024-08-11] MEDS: ACETAMINOPHEN 325 MG TAB PO PRN (05:35)
[2024-08-11] MEDS: traMADol HCL 50 MG TABLET PO PRN (05:42)
[2024-08-11 07:18] LABS: Basophils # (auto) 0.04 K/uL (0.00-0.20); Basophils % (auto) 0.5 %; Eosinophils # (auto) 0.06 K/uL (0.00-0.50); Eosinophils % (auto) 0.7 %; Hematocrit (blood only) 38.5 % (37.0-47.0); Hemoglobin 12.9 g/dl (12.0-16.0); Immature Granulocytes # (auto) 0.03 K/uL (0.01-0.20); Immature Granulocytes % (auto) 0.4 %; Lymphocytes # (auto) 1.71 K/uL (1.20-3.40); Lymphocytes % (auto) 20.5 %; Mean Corpuscular Hemoglobin 26.9 pg (25.0-34.0); Mean Corpuscular Hgb Conc 33.5 g/dL (32.0-36.0); Mean Corpuscular Volume 80.2 fL (80.0-100.0); Mean Platelet Volume 9.7 fL (9.4-12.4); Monocytes # (auto) 0.69 K/uL (0.11-0.59); Monocytes % (auto) 8.3 %; Neutrophils # (auto) 5.83 K/uL (1.40-6.50); Neutrophils % (auto) 69.6 %; Platelet Count 270 K/uL (130-400); RDW Coefficient of Variation 15.4 % (11.5-14.5); White Blood Count 8.36 K/ul (4.8-10.8)
[2024-08-11 07:22] LABS: Albumin Level 3.9 gm/dl (3.4-5.0); BUN Creatinine Ratio 15.7 (10-20); Calcium 9.5 mg/dl (8.6-10.3); Magnesium 1.4 mg/dl (1.7-2.4); Phosphorus 3.2 mg/dl (2.5-4.9); Potassium 4.1 mmol/L (3.5-5.1)
[2024-08-11 07:41] LABS: Estimated Average Glucose 177 mg/dl; Hemoglobin A1C 7.8 % (4.5-5.6)
[2024-08-11] MEDS: INSULIN ASPART PER UNIT CHARGE SC SCH (08:45)
[2024-08-11] MEDS: PRAMIPEXOLE DIHYDROCHLO 0.5 MG TAB PO SCH (08:47)
[2024-08-11] MEDS: ASPIRIN 81 MG ECTAB PO SCH (08:47)
[2024-08-11] MEDS: ROSUVASTATIN CALCIUM 20 MG TAB PO SCH (08:47)
[2024-08-11] MEDS: CLOPIDOGREL BISULFATE 75 MG TAB PO SCH (08:48)
[2024-08-11] MEDS: METOPROLOL SUCC 50MG EXT REL TAB PO SCH (08:48)
[2024-08-11] MEDS: ISOSORBIDE MONO EXTENDED REL 30 MG TABCR PO SCH (08:48)
[2024-08-11] MEDS: HEPARIN SOD 5,000 UNIT/0.5 ML VIAL SQ SCH (08:54)
[2024-08-11] MEDS ORDERED: ERTAPENEM 1000MG 1,000 MG/10 ML SYR IV SCH (10:15)
[2024-08-11] MEDS: MAGNESIUM SULFATE / D5W 1 GM/100 ML BAG IV SCH (11:14)
--- NOTE | 2024-08-11 12:36 | Hospitalist Progress Note ---
Date of Service August 11, 2024 Assessment & Plan (1) Urinary tract infection: Plan: urine cx here with klebsiella prior urine cx - processed at [facility] - was 2nd enterobacter which had some resistance thus, current UTI is due to a different pathogen changed rocephin to cefepime in the event the klebsiella has some resistance narrow the cefepime when able (2) Recurrent UTI: Plan: 07/14/24 urine cx processed at [facility] [address] showed enterobacter - RESISTANT to cefazolin, ampicillin, and amox-clavulanate. she has been taking keflex chronically for UTI prophylaxis. the keflex is not preventing her UTIs, and is simply inducing resistance. would STOP the keflex. consider methenamine 1gm BID for prophy post-d/c. cont estrogen cream. CT a/p without obstructing stone or any other anatomical urological issue contributing to heightened UTI risk. she does have mild left hip weakness and known chronic lumbar spine issues - could l-spine disease be causing neurogenic urological issues? doubt, but possible (bladder scan without urinary retention) (3) Restless leg: Plan: cont pramipexole BID (4) HTN (hypertension): Plan: cont home meds (5) Coronary artery disease: Plan: per outpatient cardiology records - "stents originally performed by Dr. Wetzel. Details are unknown but based on her last catheterization she had prior stents in the LAD x3, the proximal RCA, and the proximal posterolateral branch. In 2017 Dr. Vidal stented her mid RCA for a 90% lesion using a 2.75 x 28 mm drug-eluting stent." cont asa cont plavix cont imdur cont meto succ cont crestor no ischemic sx's at this time (6) Hypomagnesemia: Plan: replace with IV mag repeat level am (7) Left leg weakness: Plan: present for several weeks in light of known lumbar spine stenosis will repeat MRI l-spine today MRI will also rule out any neurogenic cause of her recurrent UTIs will ask PT, OT to eval (8) Lumbago: Plan: see above Plan DVT Proph - heparin SC Admission and Anticipated Discharge Date Admission Date: August 10, 2024 Subjective patient resting in bed comfortably denies any current complaints I had staff perform PVR / bladder scan -- <100cc she reports she follows with a urologist in [place] for the recurrent UTIs she takes keflex daily for UTI prophylaxis she is also using estrogen cream several days/week she is frustrated by the recurrent UTIs last UTI - urine cx was processed at [facility] (July 2024) in addition, she reports her left leg has been weak recently she has chronic low back pain she had back surgery many years ago denies numbness of either leg denies radicular pain of either leg denies bowel incontinence Review of Systems Review of Systems: gen - appetite fair cv - no cp, no orthopnea pulm - no dyspnea GI - no N/V, no flank pain Physical Exam Physical Exam: gen - NAD, looks well/nontoxic mouth - MMM neck - no JVD heart - RRR, s1 s2, no murmur lungs - CTA b/l abd - soft NT ND BS+; no flank tenderness b/l ext - no edema pulses 2+ b/l neuro - left hip flexion impaired, about 4/5 strength; other muscle groups of legs 5/5 b/l; no hyper-reflexia b/l Results & Data Results & Data Vital Signs (Past 12 Hours) Vital Signs Temp Pulse Pulse Resp BP BP BP 08/11/24 08:00 112 H 08/11/24 07:56 36.8 C 103 H 18 100/64 08/11/24 03:49 37.0 C 120 H 17 144/81 H 08/11/24 02:56 115 H 152/89 H 08/11/24 02:50 128 H 08/11/24 02:41 122 H 166/87 H 08/11/24 01:07 37.1 C 138 H 20 167/98 H 08/11/24 00:49 126 H 16 155/91 H Pulse Ox O2 Del Method 08/11/24 08:00 08/11/24 07:56 91 Room Air 08/11/24 03:49 92 Room Air 08/11/24 02:56 08/11/24 02:50 08/11/24 02:41 08/11/24 01:07 167 H Room Air 08/11/24 00:49 94 Room Air Laboratory Results Laboratory Results - last 24 hr 08/10/24 08/10/24 08/10/24 18:55 19:26 23:29 WBC 8.21 RBC 4.77 Hgb 12.6 Hct 38.9 MCV 81.6 MCH 26.4 MCHC 32.4 RDW Std Deviation 46.2 RDW Coeff of Marshall 15.4 H Plt Count 276 MPV 9.5 Immature Gran % (Auto) 0.1 Neut % (Auto) 63.7 Lymph % (Auto) 23.3 [place] % (Auto) 9.5 Eos % (Auto) 2.8 Baso % (Auto) 0.6 Neut # (Auto) 5.23 Lymph # (Auto) 1.91 [place] # (Auto) 0.78 H Eos # (Auto) 0.23 Baso # (Auto) 0.05 Immature Gran # (Auto) 0.01 Sodium 138 Potassium 4.0 Chloride 104 Carbon Dioxide 26 Anion Gap 8 BUN 16 Creatinine 0.90 Est Cr Clr Drug Dosing Not Reportable eGFR 70.51 BUN/Creatinine Ratio 17.8 Glucose 136 H POC Glucose 126 H Estimat Average Glucose Hemoglobin A1c Calcium 9.4 Phosphorus Magnesium Total Bilirubin 0.5 AST 22 ALT 23 Alkaline Phosphatase 67 Troponin I High Sens 5.1 Total Protein 6.5 Albumin 4.0 Globulin 2.5 Albumin/Globulin Ratio 1.6 Lipase 22 Urine Color Yellow Urine Appearance Turbid A Urine pH 7.0 Ur Specific [place] 1.014 Urine Protein 2+ H Urine Glucose (UA) Negative Urine Ketones Negative Urine Blood 3+ H Urine Nitrite Negative Urine Bilirubin Negative Urine Urobilinogen Negative Ur Leukocyte Esterase 3+ H Urine WBC (Auto) >50 H Urine RBC (Auto) >20 H U Hyaline Cast (Auto) 11-20 H U Epithel Cells (Auto) 0-2 Urine Bacteria (Auto) 3+ H 08/11/24 08/11/24 08/11/24 06:42 08:13 12:08 WBC 8.36 RBC 4.80 Hgb 12.9 Hct 38.5 MCV 80.2 MCH 26.9 MCHC 33.5 RDW Std Deviation 45.0 RDW Coeff of [place] 15.4 H Plt Count 270 MPV 9.7 Immature Gran % (Auto) 0.4 Neut % (Auto) 69.6 Lymph % (Auto) 20.5 [place] % (Auto) 8.3 Eos % (Auto) 0.7 Baso % (Auto) 0.5 Neut # (Auto) 5.83 Lymph # (Auto) 1.71 [place] # (Auto) 0.69 H Eos # (Auto) 0.06 Baso # (Auto) 0.04 Immature Gran # (Auto) 0.03 Sodium 137 Potassium 4.1 Chloride 102 Carbon Dioxide 26 Anion Gap 9 BUN 16 Creatinine 1.02 Est Cr Clr Drug Dosing 55.0 eGFR 60.67 BUN/Creatinine Ratio 15.7 Glucose 138 H POC Glucose 157 H 141 H Estimat Average Glucose 177 Hemoglobin A1c 7.8 H Calcium 9.5 Phosphorus 3.2 Magnesium 1.4 L Total Bilirubin AST ALT Alkaline Phosphatase Troponin I High Sens Total Protein Albumin 3.9 Globulin Albumin/Globulin Ratio Lipase Urine Color Urine Appearance Urine pH Ur Specific [place] Urine Protein Urine Glucose (UA) Urine Ketones Urine Blood Urine Nitrite Urine Bilirubin Urine Urobilinogen Ur Leukocyte Esterase Urine WBC (Auto) Urine RBC (Auto) U Hyaline Cast (Auto) U Epithel Cells (Auto) Urine Bacteria (Auto) Diagnostic Findings Microbiology 08/10/24 19:26 Urine,Clean Catch Urine Culture - Preliminary Klebsiella pneumoniae PG Care Time/CCT Total # of Minutes Spent Total Time Spent with Patient: Total time spent is greater than 50% in coordination of care (as documented) at patient's floor/unit and/or counseling patient: Coding Level of Care Code 99527 SUB INP/OBS CARE 2/35MIN Diagnoses Urinary tract infection N39.0 Hematuria presence: without hematuria Urinary tract infection type: site unspecified Recurrent UTI N39.0 Restless leg G25.81 HTN (hypertension) I10 Hypertension type: unspecified Coronary artery disease I25.10 Hypomagnesemia E83.42 Left leg weakness R29.898 Chronic midline low back pain without sciatica M54.5; G89.29 Chronicity: chronic Back pain laterality: midline Sciatica presence: without sciatica (1) Urinary tract infection Hematuria presence: without hematuria Urinary tract infection type: site unspecified Qualified Code(s): N39.0 - Urinary tract infection, site not specified (4) HTN (hypertension) Hypertension type: unspecified Qualified Code(s): I10 - Essential (primary) hypertension (8) Lumbago Chronicity: chronic Back pain laterality: midline Sciatica presence: without sciatica Qualified Code(s): M54.5 - Low back pain; G89.29 - Other chronic pain
[2024-08-11] MEDS: CEFEPIME 2000MG 2,000 MG/20 ML SYR IV SCH (13:09)
[2024-08-11] MEDS ORDERED: traMADol HCL 50 MG TABLET PO PRN (17:00)
[2024-08-11] MEDS: ONDANSETRON INJ 2 MG/ML 2 ML VIAL IV PRN (17:06)
--- NOTE | 2024-08-11 20:04 | Magnetic Resonance Report ---
EXAM: MR lumbar spine wo con CLINICAL HISTORY: complaint of back pain that began about 4 weeks ago, and has gradually worsened. She more recently has developed urinary incontinence. She was treated for a urinary tract infection by urology in [place] about 2 weeks ago with a 10-day course of antibiotics, but continues have worsening symptoms. TECHNIQUE: Different pulse sequences were performed in different planes for the lumbar spine without contrast. Images were sent through PACs for diagnostic interpretation. COMPARISON: None. FINDINGS: Dextroconvex degenerative scoliosis. The Colon Lippmann's angle measures 19.3. The scanned intervertebral discs show variable degrees of degeneration denoted by low signal intensity on T2 WI with a relative reduction of their heights. Marginal osteophytes are seen. Multiple Schmorl's nodes are seen at the vertebral end plates. Modic I and II marrow changes are seen, with no other remarkable marrow changes. There is degenerative spondylolisthesis at the L3-L4 level measuring 5.5 mm. There is degenerative retrolisthesis at the T12-L1, measuring 4.5 mm; L1-L2 level, measuring 3.3 mm; and L5-S1 level, measuring 5.8 mm. Maintained vertebral heights with intact vertebral bodies and neural arches. The uterus is enlarged, showing innumerable variable-sized interstitial sub-mucous and subserous locations these exhibit low signals on different pulse sequences. Findings are consistent with a Fibroid uterus. Posteriorly oriented orthostatic subcutaneous edema is seen opposite the lumbar and sacral vertebrae, exhibiting low signals on T1 WI and bright signals on T2 on STIRWI. Level by Level analysis: T12-L1: There is a 2.2 mm annular bulge indenting the thecal sac, compromising subarticular recesses and neural foramina with impingement of the emerging nerve roots. Degenerative retrolisthesis buckled ligamenta flava and arthropathic facet joints augment effects. L1-L2: There is a 2.5 mm annular bulge and 4.1 mm left central and subarticular herniation indenting the thecal sac, compromising the subarticular recesses more on the left side. There is mild central canal stenosis and mild bilateral neural foraminal stenosis with impingement of the emerging nerve roots. Degenerative retrolisthesis buckled ligamenta flava and arthropathic facet joints augment effects. L2-L3:There are 2.8 mm subarticular protrusions compromising subarticular recesses and neural foramina with impingement of the emerging nerve roots. L3-L4: There is a 3.6 mm annular bulge and 5.4 mm left foraminal herniation indenting the thecal sac, compromising the subarticular recesses. There is moderate central canal stenosis and moderate left and mild right neural foraminal stenosis with impingement of the emerging nerve roots. Degenerative spondylolisthesis buckled ligamenta flava and arthropathic facet joints augment effects. L4-L5: There is a 3.6 mm annular bulge and 5.5 mm central herniation indenting the thecal sac, compromising the subarticular recesses more on the right side. There is moderate central canal stenosis. There is moderate right and mild left or neural foraminal stenosis with impingement of the emerging nerve roots. Buckled ligamenta flava and arthropathic facet joints augment effects. L5-S1: There is a 2.4 mm annular bulge and a broad-based 6.1 mm central herniation with caudal migration indenting the thecal sac, compromising the subarticular recesses. There is mild central canal stenosis and moderate right and mild left neural foraminal stenosis with impingement of the emerging nerve roots. Degenerative retrolisthesis buckled ligamenta flava and arthropathic facet joints augment effects. The lower dorsal spinal cord, conus medullaris, and cauda equina nerve roots are unremarkable. Paravertebral soft tissue is unremarkable. No developmental canal stenosis. IMPRESSION: 1. Spondylodegenerative lumbar disc disease. 2. Modic I and II marrow changes. 3. Multiple annular fissures. 4. Multiple Schmorl's nodes. 5. Orthostatic edema opposite the lumbar and sacral vertebrae. 6. Dextroconvex degenerative scoliosis. The Colon Lippmann's angle measures 19.3. 7. There is degenerative spondylolisthesis at the L3-L4 level measuring 5.5 mm. 8. There is degenerative retrolisthesis at the T12-L1, measuring 4.5 mm; L1-L2 level, measuring 3.3 mm; and L5-S1 level, measuring 5.8 mm. 9. Fibroid uterus. 10. T12-L1: There is a 2.2 mm annular bulge indenting the thecal sac, compromising subarticular recesses and neural foramina with impingement of the emerging nerve roots. Degenerative retrolisthesis buckled ligamenta flava and arthropathic facet joints augment effects. 11. L1-L2: There is a 2.5 mm annular bulge and a 4.1 mm left central and subarticular herniation. 12. L2-L3:There are 2.8 mm subarticular protrusions. 13. L3-L4: There is a 3.6 mm annular bulge and 5.4 mm left foraminal herniation. 14. L4-L5: There is a 3.6 mm annular bulge and 5.5 mm central herniation. 15. L5-S1: There is a 2.4 mm annular bulge and a broad-based 6.1 mm central herniation with caudal migration. 16. Multilevel lumbar disc pathologies at the T12-L1 through the L5-S1 levels with effects exerted upon the central spinal canal, subarticular recesses, and neural foramina with impingement of the emerging nerve roots. Buckled ligamenta flava and arthropathic facet joints augment effects. 17. The reported findings explain the current clinical status. Electronically signed by Jack Damico 08-11-2024 8:04 PM
[2024-08-11] MEDS ORDERED: cefTRIAXone SODIUM 2,000 MG/50 ML BAG IV SCH (21:00)
[2024-08-12 06:51] LABS: Calcium 9.3 mg/dl (8.6-10.3); Creatinine Clr Calc Pharmacy 41.6 ml/min
[2024-08-12] MEDS ORDERED: POLYETHYLENE (MIRALAX) 17 GM PACK PO PRN (08:58)
--- NOTE | 2024-08-12 09:05 | Hospitalist Progress Note ---
Date of Service August 12, 2024 Assessment & Plan (1) Urinary tract infection: Plan: 68-year-old woman with recurrent UTIs admitted with pansensitive Klebsiella UTI antibiotics narrowed to cefazolin plan 7d total course (2) Recurrent UTI: Plan: 07/14/24 urine cx processed at [facility] showed enterobacter - RESISTANT to cefazolin, ampicillin, and amox-clavulanate. add methenamine at discharge, continue Estrace cream. has been on Keflex for prophylaxis CT a/p without obstructing stone or any other anatomical urological issue contributing to heightened UTI risk. no urinary retention on bladder scans no severe spinal stenosis on lumbar MRI, has many findings to cause back pain however nothing that should cause urinary retention (3) Restless leg: Plan: cont pramipexole BID (4) HTN (hypertension): Plan: cont home meds (5) Coronary artery disease: Plan: per outpatient cardiology records - "stents originally performed by Dr. Wetzel. Details are unknown but based on her last catheterization she had prior stents in the LAD x3, the proximal RCA, and the proximal posterolateral branch. In 2017 Dr. Vidal stented her mid RCA for a 90% lesion using a 2.75 x 28 mm drug-eluting stent." cont asa cont plavix cont imdur cont meto succ cont crestor no ischemic sx's at this time (6) Hypomagnesemia: Plan: replaced IV, normalized 2.0 today (7) Left leg weakness: Plan: present for several weeks, as well as worsening chronic low back pain multilevel degenerative disc disease present on her MRI as well as degenerative spondylolisthesis at L3-L4 of 5.5 mm and other findings I consulted Dr. Aldrich and discussed with himrecommends follow-up with him in the office within 2 to 3 weeks, surgery not recommended at this time and plans PT and pain management initially Plan Chronic HFpEF - not in exacerbation continue home medications - metoprolol, Imdur, not on diuretic DVT Proph - heparin SC PT and OT evaluated recommended home with home health and walker however she does live in a split-level and must go up 6 or 7 stairs to the bedroom/bathroom level, she is not strong enough for that today and hope for improvement with discharge tomorrow. discussed with RITU JHAVERI Admission and Anticipated Discharge Date Admission Date: August 10, 2024 Subjective feels stronger today but still weaker than baseline Physical Exam 2 Physical Exam: PHYSICAL EXAMINATION Last 24h vital signs reviewed, see documentation in flowsheet General: comfortable appearing, sitting up in the chair HEENT: Normocephalic, atraumatic, pupils round and equal, sclerae anicteric, no conjunctival injection, moist mucus membranes Lungs: Normal respiratory effort. Clear to auscultation bilaterally. No RRW Heart: Regular rate and rhythm, no murmurs. No JVD Abdomen: Soft, nontender, nondistended. Bowel sounds present. Extremities: Warm, dry, well-perfused. mild lower extremity edema. Neuro: Alert and oriented x 4, face symmetric, moves 4 extremities well Psych: Normal affect and behavior Results & Data Results & Data Vital Signs (Past 12 Hours) Vital Signs Temp Pulse Pulse Resp BP Pulse Ox O2 Del Method 08/12/24 07:31 36.3 C L 76 14 119/68 94 Room Air 08/12/24 07:25 74 08/12/24 02:45 36.6 C 86 18 109/67 92 Room Air 08/11/24 23:13 37 C 101 H 18 122/77 92 Room Air Laboratory Results 08/11/24 06:42 08/12/24 06:10 PG Care Time/CCT Total # of Minutes Spent Total Time Spent with Patient: Total time spent is greater than 50% in coordination of care (as documented) at patient's floor/unit and/or counseling patient: Coding Level of Care Code 06622 SUB INP/OBS CARE 2/35MIN Diagnoses Urinary tract infection N39.0 Hematuria presence: without hematuria Urinary tract infection type: site unspecified Recurrent UTI N39.0 Restless leg G25.81 HTN (hypertension) I10 Hypertension type: unspecified Coronary artery disease I25.10 Hypomagnesemia E83.42 Left leg weakness R29.898 (1) Urinary tract infection Hematuria presence: without hematuria Urinary tract infection type: site unspecified Qualified Code(s): N39.0 - Urinary tract infection, site not specified (4) HTN (hypertension) Hypertension type: unspecified Qualified Code(s): I10 - Essential (primary) hypertension
[2024-08-12] MEDS: DOCUSATE SODIUM/SENNA 50/8.6MG TAB PO SCH (10:06)
[2024-08-12] MEDS: ceFAZolin 2000MG 2,000 MG/15 ML SYR IV SCH ×2 (10:34→21:09)
--- NOTE | 2024-08-12 12:02 | Orthopedic Consultation ---
Date of Service August 12, 2024 History of Present Illness Reason for Consultation: Low back pain Requesting Physician: . Attending Physician: Merry Kennedy MD 68-year-old female with a past medical history including urinary tract infections, CHF, acute metabolic encephalopathy, uncontrolled diabetes mellitus type 2, lumbar facet joint syndrome, lumbar spinal stenosis, hypercholesterolemia, hypertension, restless leg syndrome, and coronary disease. She presents to the emergency department on 08/10 with worsening symptoms of back and pelvic pain, urinary incontinence, and failure of outpatient treatment. In talking with the patient, she relates that she has had chronic low back pain for a number of years, she has undergone some previous treatment but is just noticing an increase in symptoms recently without any specific inciting event. The pain is mostly in the lumbosacral spine midline, but she will get some left leg symptomatology when she mobilizes. Exam reveals the patient to have appropriate strength for EHL ankle plantar dorsiflexion knee flexion extension strength hip flexion strength, no notable symptoms on straight leg raise on the right, on the left only limited amount of low back pain. No specific areas of decreased sensation. Lumbar MRI from August 11, 2024 CLINICAL HISTORY: complaint of back pain that began about 4 weeks ago, and has gradually worsened. She more recently has developed urinary incontinence. She was treated for a urinary tract infection by urology in [place] about 2 weeks ago with a 10-day course of antibiotics, but continues have worsening symptoms. COMPARISON: none FINDINGS: Dextroconvex degenerative scoliosis. The Colon Lippmann's angle measures 19.3. The scanned intervertebral discs show variable degrees of degeneration denoted by low signal intensity on T2 WI with a relative reduction of their heights. Marginal osteophytes are seen. Multiple Schmorl's nodes are seen at the vertebral end plates. Modic I and II marrow changes are seen, with no other remarkable marrow changes. There is degenerative spondylolisthesis at the L3-L4 level measuring 5.5 mm, deg enerative retrolisthesis at the T12-L1, measuring 4.5 mm; L1-L2 level, measuring 3.3 mm; and L5-S1 level, measuring 5.8 mm. Maintained vertebral heights with intact vertebral bodies and neural arches. T12-L1: There is a 2.2 mm annular bulge indenting the thecal sac, compromising subarticular recesses and neural foramina with impingement of the emerging nerve roots. Degenerative retrolisthesis buckled ligamenta flava and arthropathic facet joints augment effects. L1-L2: There is a 2.5 mm annular bulge and 4.1 mm left central and subarticular herniation indenting the thecal sac, compromising the subarticular recesses more on the left side. There is mild central canal stenosis and mild bilateral neural foraminal stenosis with impingement of the emerging nerve roots. Degenerative retrolisthesis buckled ligamenta flava and arthropathic facet joints augment effects. L2-L3:There are 2.8 mm subarticular protrusions compromising subarticular recesses and neural foramina with impingement of the emerging nerve roots. L3-L4: There is a 3.6 mm annular bulge and 5.4 mm left foraminal herniation indenting the thecal sac, compromising the subarticular recesses. There is moderate central canal stenosis and moderate left and mild right neural foraminal stenosis with impingement of the emerging nerve roots. Degenerative spondylolisthesis buckled ligamenta flava and arthropathic facet joints augment effects. L4-L5: There is a 3.6 mm annular bulge and 5.5 mm central herniation indenting the thecal sac, compromising the subarticular recesses more on the right side. There is moderate central canal stenosis. There is moderate right and mild left or neural foraminal stenosis with impingement of the emerging nerve roots. Buckled ligamenta flava and arthropathic facet joints augment effects. L5-S1: There is a 2.4 mm annular bulge and a broad-based 6.1 mm central herniation with caudal migration indenting the thecal sac, compromising the subarticular recesses. There is mild central canal stenosis and moderate right and mild left neural foraminal stenosis with impingement of the emerging nerve roots. Degenerative retrolisthesis buckled ligamenta flava and arthropathic facet joints augment effects. The lower dorsal spinal cord, conus medullaris, and cauda equina nerve roots are unremarkable. Paravertebral soft tissue is unremarkable. No developmental canal stenosis. IMPRESSION: 1. Spondylodegenerative lumbar disc disease. 2. Modic I and II marrow changes. 3. Multiple annular fissures. 4. Multiple Schmorl's nodes. 5. Orthostatic edema opposite the lumbar and sacral vertebrae. 6. Dextroconvex degenerative scoliosis. The Colon Lippmann's angle measures 19.3. 7. There is degenerative spondylolisthesis at the L3-L4 level measuring 5.5 mm. 8. There is degenerative retrolisthesis at the T12-L1, measuring 4.5 mm; L1-L2 level, measuring 3.3 mm; and L5-S1 level, measuring 5.8 mm. 9. Fibroid uterus. 10. T12-L1: There is a 2.2 mm annular bulge indenting the thecal sac, compromising subarticular recesses and neural foramina with impingement of the emerging nerve roots. Degenerative retrolisthesis buckled ligamenta flava and arthropathic facet joints augment effects. 11. L1-L2: There is a 2.5 mm annular bulge and a 4.1 mm left central and subarticular herniation. 12. L2-L3:There are 2.8 mm subarticular protrusions. 13. L3-L4: There is a 3.6 mm annular bulge and 5.4 mm left foraminal herniation. 14. L4-L5: There is a 3.6 mm annular bulge and 5.5 mm central herniation. 15. L5-S1: There is a 2.4 mm annular bulge and a broad-based 6.1 mm central herniation with caudal migration. 16. Multilevel lumbar disc pathologies at the T12-L1 through the L5-S1 levels with effects exerted upon the central spinal canal, subarticular recesses, and neural foramina with impingement of the emerging nerve roots. Buckled ligamenta flava and arthropathic facet joints augment effects. MRI images of the lumbar spine [facility] on August 11, 2024 was reviewed, this is my separate interpretation, this reveals multilevel degenerative changes as noted on the report above along with degenerative scoliosis, the patient does have moderate canal stenosis with evidence of some degenerative spondylolisthesis at L3-4 which may be causing some of the radicular symptoms, but the stenosis is moderate in amount. There is no significant foraminal stenosis at L4-5 or L5-S1 though there is some moderate at the L3-4 level. Impression: Approximately 1 month history of low back pain with multilevel degenerative changes seen primarily in the lower 3 lumbar levels, the more significant finding is at the L3-4 level with moderate canal and some foraminal stenosis. Plan: Today I discussed the findings of the MRI with the patient and related to her that certainly she has chronic changes involving her lumbar spine that could be causing some of her low back pain, I do not see any acute findings in terms of fracture or a new large disc herniation that would be causing a specific amount of radiculopathy or urinary tract issues. I did relate though that follow-up would be needed relative to addressing her symptoms either with pain management or potentially a surgical intervention at some point once further immobilization is achieved, she was in agreement with this plan. Allergies Allergy/AdvReac Type Severity Reaction Status Date / Time bee venom protein (honey bee) Allergy Severe DIFFICULTY Verified 04/19/24 22:55 BREATHING/HIVES/ITCHY Home Medications Medication Instructions Recorded Confirmed Type aspirin 81 mg tablet,delayed 81 mg PO DAILY 07/06/20 08/10/24 History release (Adult Low Dose Aspirin) blood sugar diagnostic (OneTouch #100 ea 04/26/23 08/10/24 Rx Verio test strips) lancets 33 gauge (OneTouch Delica #100 ea 04/26/23 08/10/24 Rx Plus Lancet) pen needle, diabetic 32 gauge x #100 ea 04/26/23 08/10/24 Rx 5/32" (Pen Needle) spironolactone 100 mg tablet 50 mg (1/2 x 100 mg) PO QAM #30 04/26/23 08/10/24 Rx tabs clopidogrel 75 mg tablet (Plavix) 75 mg PO DAILY #90 tabs 08/21/23 08/10/24 Rx semaglutide 1 mg/dose (4 mg/3 mL) 1 mg subcut WK 04/01/24 08/10/24 History subcutaneous pen injector (Ozempic) pramipexole 0.25 mg tablet 0.5 mg PO BID 04/19/24 08/10/24 History rosuvastatin 20 mg tablet 20 mg PO QAM 04/19/24 08/10/24 History isosorbide mononitrate 30 mg 30 mg PO QAM 08/10/24 08/10/24 History tablet,extended release 24 hr metoprolol succinate 200 mg 200 mg PO QAM 08/10/24 08/10/24 History tablet,extended release 24 hr tramadol 50 mg tablet 50 mg PO Q12 PRN Pain 08/10/24 08/10/24 History Past Med/Surg History Problem List (Updated 08/12/24 @ 06:51 by Juan Freed MD) Left leg weakness Hypomagnesemia Recurrent UTI Failure of outpatient treatment Sciatica (Acute) Low back pain (Acute) Urinary tract infection (Acute) Fever (Acute) CHF (congestive heart failure) Acute metabolic encephalopathy Tachycardia Uncontrolled type 2 diabetes mellitus with hyperglycemia Altered mental status Sepsis Lumbar facet joint syndrome Spinal stenosis, lumbar region without neurogenic claudication Lumbago Hypercholesteremia HTN (hypertension) (Acute) Restless leg Coronary artery disease Surgical History History of lumbar surgery L4-5 discectomy Social History Smoking Status: Former smoker Hx Alcohol Use: No Hx Substance Use: No Preferred Language: [place] Communication Ability: Effective Visual Impairment: Limited Hearing Ability: Hard of Hearing Property Claims Manager Required: No Beliefs That Will Affect Care: None marital status: Current Living Situation: Spouse current occupational status: retired Other Information That Helps Us Care for You: No Feels Safe at Home: Yes Safety Concerns: Feels Safe At This Time Assistive Devices: None Review of Systems All systems reviewed & are unremarkable except as noted in HPI & below. Physical Exam . Results & Data Results & Data Laboratory Results . Diagnostic Findings . PG Care Time/CCT Total # of Minutes Spent Total Time Spent with Patient: Total time spent is greater than 50% in coordination of care (as documented) at patient's floor/unit and/or counseling patient: Coding Level of Care Code 55539 IN/OBS CONSULT LVL 3,45M
--- NOTE | 2024-08-13 09:58 | Electrocardiogram Report ---
Test Reason : Blood Pressure : */* mmHG Vent. Rate : 92 BPM Atrial Rate : 92 BPM P-R Int : 170 ms QRS Dur : 78 ms QT Int : 336 ms P-R-T Axes : 36 18 11 degrees QTcB Int : 415 ms Normal sinus rhythm Cannot rule out Anterior infarct , age undetermined Abnormal ECG When compared with ECG of 19-Apr-2024 22:50, No significant change was found Confirmed by Santino Mcdermott ([id number]) on 08/13/2024 9:57:51 AM Referred By: REFERRED SELF Confirmed By: Santino Mcdermott
[2024-08-13 12:26] VITALS: BP 100/57; PULSE 84; RESP 18; TEMP 97.7; O2SAT 93
--- NOTE | 2024-08-13 18:00 | Discharge Summary ---
Discharge Summary Date of Service August 13, 2024 Principal Dx & Hospital Course #1 = Principal Diagnosis (1) Urinary tract infection: 68-year-old woman with recurrent UTIs admitted with pansensitive Klebsiella UTI antibiotics narrowed to cefazolin, finish po keflex for total 7 day course (2) Recurrent UTI: 07/14/24 urine cx processed at [facility] showed enterobacter - RESISTANT to cefazolin, ampicillin, and amox-clavulanate. CT a/p without obstructing stone or any other anatomical urological issue contributing to heightened UTI risk. no urinary retention on bladder scans no severe spinal stenosis on lumbar MRI, has many findings to cause back pain however nothing that should cause urinary retention add methenamine at discharge, continue Estrace cream. has been on Keflex for prophylaxis in the past. She will schedule follow up with her urologist in [place]. She can't recall the name. (3) Restless leg: cont pramipexole BID (4) HTN (hypertension): cont home meds (5) Coronary artery disease: per outpatient cardiology records - "stents originally performed by Dr. Wetzel. Details are unknown but based on her last catheterization she had prior stents in the LAD x3, the proximal RCA, and the proximal posterolateral branch. In 2017 Dr. Vidal stented her mid RCA for a 90% lesion using a 2.75 x 28 mm drug-eluting stent." cont asa cont plavix cont imdur cont meto succ cont crestor no ischemic sx's at this time (6) Hypomagnesemia: replaced IV, normalized (7) Left leg weakness: present for several weeks, as well as worsening chronic low back pain multilevel degenerative disc disease present on her MRI as well as degenerative spondylolisthesis at L3-L4 of 5.5 mm and other findings I consulted Dr. Aldrich and discussed with himrecommends follow-up with him in the office within 2 to 3 weeks, surgery not recommended at this time and plans PT and pain management initially Plan Chronic HFpEF - not in exacerbation continue home medications - metoprolol, Imdur, not on diuretic Notes For Next Care Provider méndez-sensitive kelbsiella UTI Medication Changes From Visit methenamine added for UTI prophylaxis complete course of oral keflex Admission HPI Per Admitting Provider The patient is a 68-year-old female with a past medical history including urinary tract infections, CHF, acute metabolic encephalopathy, uncontrolled diabetes mellitus type 2, lumbar facet joint syndrome, lumbar spinal stenosis, hypercholesterolemia, hypertension, restless leg syndrome, and coronary disease. She presents to the emergency department with worsening symptoms of back and pelvic pain, urinary incontinence, and failure of outpatient treatment. Discharge Exam PHYSICAL EXAMINATION Last 24h vital signs reviewed, see documentation in flowsheet General: comfortable appearing, sitting up in the chair exam unchanged 08/13 HEENT: Normocephalic, atraumatic, pupils round and equal, sclerae anicteric, no conjunctival injection, moist mucus membranes Lungs: Normal respiratory effort. Clear to auscultation bilaterally. No RRW Heart: Regular rate and rhythm, no murmurs. No JVD Abdomen: Soft, nontender, nondistended. Bowel sounds present. Extremities: Warm, dry, well-perfused. mild lower extremity edema. Neuro: Alert and oriented x 4, face symmetric, moves 4 extremities well Psych: Normal affect and behavior Discharge Plan Discharge Items Patient Disposition: Home - Home Health Services Reason For Visit: UTI, BACK PAIN Discharge Diagnosis: UTI, back pain Activity: Resume your previous activity Activity Comment: PT and OT will help you regain your mobility Non-emergency contact: Primary Care Provider and Urologist Call non-emergency contact if: you have any medication questions, your symptoms worsen and you have a fever Follow-up/Referrals: Isaiah Aldrich MD [Surgeon] - Akilah Cook PA-C [Primary Care Provider] - 08/25/24 11:30 am Diet: Carb Consistent or DM2 and Heart Healthy Addtl Attending Provider Instructions: You were treated for UTI It was caused by a common bacteria called Klebsiella that was sensitive to all the usual antibiotics including keflex You had abdominal/pelvis CT and there was no evidence of stones or bladder obstruction, findings were compatible with cystitis (UTI) Complete the course of antibiotics Continue the estrace cream Try medication called methenamine for UTI prevention Hopefully urinary incontinence will improve as the UTI resolves. There was nothing on your back MRI to cause urinary incontinence Schedule follow up with your urologist For your back pain you had MRI and Dr. Aldrich consulted -PT/OT and pain management are recommended at this time -follow up with Dr. Aldrich in the office in about three weeks It was a pleasure taking care of you in the hospital, Merry Kennedy MD Pending Studies at Discharge: No Stand-Alone Forms: [facility], Smoking Cessation Medications and DC Order Prescriptions: New acetaminophen 325 mg Tablet 650 mg PO Q4H PRNQty: 0 0RF cephalexin 500 mg capsule 500 mg PO BID Qty: 11 0RF methenamine hippurate 1 gram tablet 1 g PO BID Qty: 60 0RF Continued aspirin [Adult Low Dose Aspirin] 81 mg tablet,delayed release (DR/EC) 81 mg PO DAILY clopidogrel [Plavix] 75 mg tablet 75 mg PO DAILY Qty: 90 3RF Ozempic 1 mg/dose (4 mg/3 mL) pen injector 1 mg subcut WK Rx Instructions: (DME) pen needle, diabetic [Pen Needle] 32 gauge x " needle See Rx Instructions .Route Qty: 100 0RF Rx Instructions: BID (DME) OneTouch Verio test strips Strip See Rx Instructions .Route Qty: 100 0RF Rx Instructions: TID before meals. (DME) lancets [OneTouch Delica Plus Lancet] 33 gauge misc See Rx Instructions .Route Qty: 100 0RF Rx Instructions: TIDM spironolactone 100 mg tablet 50 mg PO QAM Qty: 30 0RF pramipexole 0.25 mg tablet 0.5 mg PO BID rosuvastatin 20 mg tablet 20 mg PO QAM tramadol 50 mg tablet 50 mg PO Q12 PRN (Reason: Pain) metoprolol succinate 200 mg tablet extended release 24 hr 200 mg PO QAM isosorbide mononitrate 30 mg tablet extended release 24 hr 30 mg PO QAM Discharge Orders: Discharge Order (Routine); Ordered 08/13/24 Ordered By: Merry Dumont/Other Patient Handouts: Managing Type 2 Diabetes Admission Data Admit Date/Time: 08/10/24 23:39 Attending Provider: Merry Kennedy Admit Provider: Shade Nascimento Primary Care Provider: Akilah Cook. Other Providers: Shade Nascimento; Isaiah Aldrich; [facility] Fax Other Interventions: Discharge Summary Assessment (RN) Last Done: 08/13/24 11:22 Hospital Stay Data Consultations 08/10/24 22:28 ED Decision to Admit Stat 08/12/24 08:55 Consult Orthopedic Spine Surgery Routine Diagnostic Imagining Performed 08/10/24 18:23 CT abd pelvis IV con only Stat 08/11/24 12:36 MR lumbar spine wo con Routine Pending Results Patient Have Any Pending Studies at Discharge: No Discharge Instructions Given to Patient (Per Discharging Provider) You were treated for UTI It was caused by a common bacteria called Klebsiella that was sensitive to all the usual antibiotics including keflex You had abdominal/pelvis CT and there was no evidence of stones or bladder obstruction, findings were compatible with cystitis (UTI) Complete the course of antibiotics Continue the estrace cream Try medication called methenamine for UTI prevention Hopefully urinary incontinence will improve as the UTI resolves. There was nothing on your back MRI to cause urinary incontinence Schedule follow up with your urologist For your back pain you had MRI and Dr. Aldrich consulted -PT/OT and pain management are recommended at this time -follow up with Dr. Aldrich in the office in about three weeks It was a pleasure taking care of you in the hospital, Merry Kennedy MD Total Time Total Time Spent Total Time Spent (In Minutes): <30 Coding Level of Care Code 94276 IN/OBS DISCH 30 MIN/LESS Diagnoses Urinary tract infection N39.0 Hematuria presence: without hematuria Urinary tract infection type: site unspecified Recurrent UTI N39.0 Restless leg G25.81 HTN (hypertension) I10 Hypertension type: unspecified Coronary artery disease I25.10 Hypomagnesemia E83.42 Left leg weakness R29.898
== END 2024-08-13 13:15 | disposition home health service (06) | DRG 690 ==
LOC: ED 17:59 → 4W 23:39 → SUATTDRO 23:39 → 4W 08-11 00:49 → 3N 08-12 23:32

== ENCOUNTER 2024-10-21 16:29 | Inpatient (IN) ==
[2024-10-21] MEDS: MoRPHine SULFATE 2 MG/ML CARP IM STA (17:14)
[2024-10-21] MEDS: LORazepam 1 MG/1 ML SYR ED Inj Use IM STA (17:14)
[2024-10-21] MEDS: ONDANSETRON 4 MG OD TAB PO STA (17:17)
[2024-10-21] MEDS: MoRPHine SULFATE 4 MG/ML 1 ML CARP\\VIAL IM STA (17:28)
[2024-10-21 17:35] LABS: Magnesium 1.9 mg/dl (1.7-2.4)
--- NOTE | 2024-10-21 17:36 | Emergency Department Note ---
Impression & Plan Altered mental status, Hypertension, Tachycardia, Acute UTI, Seizure-like activity, Elevated troponin, Elevated lactic acid level ED Provider Note NAME: EDWARD AMEZCUA AGE: 68 SEX: F : 1955 ARRIVES VIA: Ambulance INFORMANT: [Patient][nursing, EMS, ] ED PROVIDER(S): [Bereket Parsons MD] CHIEF COMPLAINT: Confusion HISTORY OF PRESENT ILLNESS: The patient is a 68-year-old female who was in our ER earlier today and diagnosed with a UTI. She received IV ceftriaxone and was prescribed Keflex. During her ED stay, she was found to have a low magnesium and received IV magnesium. She was by report, waiting in the car at the pharmacy and, as per the , had seizure-like activity. She was confused and potentially postictal per EMS, she was brought to our hospital. Initially, she responded only to pain but now she is awake and complaining of pain in her legs and back. She seems somewhat confused. As per the , her leg and back pain is a chronic issue. The patient has no diagnosed seizure disorder. Of note, there was no fall/trauma. PMHx/PSHx/Social Hx: See Below PHYSICAL EXAM: GENERAL: Patient is in significant distress, moaning, complaining of pain in the back and legs HEENT: No acute trauma, normocephalic atraumatic, mucous membranes moist, no nasal congestion. NECK: No stridor, no adenopathy, no meningismus, trachea is midline. LUNGS: Clear to auscultation bilaterally, no wheeze, no rhonchi, breath sounds equal. HEART: Tachycardic, regular rhythm, no obvious murmur but heart tones are distant. ABDOMEN: Soft, nontender, no peritonitis. Obese EXTREMITIES: No cyanosis, full range of motion of all the joints without pain or difficulty. NEUROLOGIC: Seems confused. No speech slur, does move all extremities. SKIN: No jaundice, no diaphoresis. DIFFERENTIAL DIAGNOSIS: Seizure, dysrhythmia, electrolyte imbalance, AL, intracranial bleeding, stroke, infection, among others. EMERGENCY DEPARTMENT PROCEDURES: MEDICAL DECISION MAKING: The laboratory work from earlier today was reviewed. There was no leukocytosis. No concerning anemia. There was a normal platelet count. There was no renal failure. Magnesium is low 1.4. Urinalysis did show findings consistent with infection. With this second ED visit, a repeat magnesium level was drawn, the value was adequate at 1.9. Patient appeared to be in a euthyroid state. Prolactin level was not elevated making seizure less likely. ECG showed a sinus tachycardia, no ischemia or dysrhythmia. Cardiac enzyme testing was slightly elevated. This troponin elevation could be secondary to cardiac injury or mismatch from her tachycardia and illness. Lactic acid level was elevated consistent with infection versus dehydration. I saw the patient shortly after her arrival. She was tachycardic, hypertensive, she was yelling about pain in her back and legs. She was confused. There was no IV access initially, thus, she was given IM Ativan, 1 mg. She was given IM morphine 2 mg and sublingual Zofran 4 mg. She eventually received 4 mg of IM morphine for pain. Once an IV was established, the patient received 1.5 L of IV saline. She received 0.5 mg of IV Ativan. She was given 2 mg of IV morphine for pain, IV Toradol for pain, IV Tylenol for pain. She received 2 g of IV Keppra. Brain CT was done, there was no acute bleed or mass effect. The patient seemed to improve with the above treatment. Her pain seemed controlled, she was resting. Her blood pressure was improved, her heart rate was improved. The patient requires a hospital stay. It is unclear if she had a true seizure prior to arrival or if this was an unresponsive episode and just tremors. She does have a UTI by her testing and certainly, infection is clearly part of her presentation. I did not give any additional IV antibiotic therapy as she had just received a dose of IV ceftriaxone a few hours prior to her repeat ED visit. I spoke with the family, I spoke with the patient, I did speak with case management, the on-call hospitalist was consulted. Further workup for her presentation is needed. I did speak with on-call neurology. They suggested holding off on further Keppra dosing as it was unclear if a seizure had truly been witnessed. Prior/Outside records/notes reviewed: Today's EMS notes describing her presentation and transport to this hospital. ECG per my interpretation: Indication was tachycardia. The ECG shows a sinus tachycardia with a rate of 138. There is no acute ischemic change, there is no ST elevation or PVC. The QTc is 412. Continuous Cardiac Monitoring per my interpretation: An order was placed for continuous cardiac monitoring. The monitor shows a rate of 143 with sinus tachycardia. Imaging/x-ray results per my interpretation: Chest x-ray showed a poor inspiratory effort, no CHF or pneumonia. Chronic Medical/Social conditions affecting care: None Care/Management discussed with: Case management, the on-call hospitalist. On- call neurology-Dr. Beltran Level of care consideration(s): After review of the information above and other included data: --I believe the patient requires escalation of care to admission Critical Care Note: I have personally spent 54 minutes of critical care time in the direct management of this patient. This includes bedside care, interpretation of diagnostic studies, and testing, discussion with consultants, patient, and family members, and other required patient management activities. This 54 minutes is in excess of all separately billable procedures. DISPOSITION: Admission Past Med/Surg History Problem List (Updated 10/22/24 @ 01:52 by Bereket Parsons MD) Elevated lactic acid level (Acute) Elevated troponin (Acute) Seizure-like activity (Acute) Acute UTI (Acute) Tachycardia (Acute) Hypertension (Acute) Altered mental status (Acute) Encephalopathy Septic shock Pyelonephritis Hypotension Elevated troponin Seizure-like activity Cramps, muscle, general (Acute) Lumbar spondylosis Lumbar stenosis with neurogenic claudication Spondylolisthesis, lumbar region Scoliosis of lumbar region due to degenerative disease of spine in adult Left leg weakness Recurrent UTI Sciatica (Acute) Fever (Acute) CHF (congestive heart failure) Acute metabolic encephalopathy Tachycardia Uncontrolled type 2 diabetes mellitus with hyperglycemia Altered mental status Sepsis Lumbar facet joint syndrome Spinal stenosis, lumbar region without neurogenic claudication Hypercholesteremia HTN (hypertension) (Acute) Restless leg Coronary artery disease Medical History Acute UTI Surgical History History of lumbar surgery L4-5 discectomy Social History Smoking Status: Former smoker Tobacco Type: Cigarettes Smoking End Date: unknown; Hx Alcohol Use: No Hx Substance Use: No Preferred Language: German Communication Ability: AMS Visual Impairment: Limited Hearing Ability: Hard of Hearing Broadcast Chief Engineer Required: No Beliefs That Will Affect Care: None marital status: Current Living Situation: Spouse current occupational status: retired Feels Safe at Home: Yes Assistive Devices: None Allergies Allergies Allergy/AdvReac Type Severity Reaction Status Date / Time bee venom protein (honey bee) Allergy Severe DIFFICULTY Verified 10/13/24 11:32 BREATHING/HIVES/ITCHY Home Meds Home Medications Medication Instructions Recorded Confirmed aspirin 81 mg tablet,delayed 81 mg PO DAILY 07/06/20 10/21/24 release (Adult Low Dose Aspirin) pramipexole 0.25 mg tablet 0.5 mg PO BID 04/19/24 10/21/24 isosorbide mononitrate 30 mg 30 mg PO QAM 08/10/24 10/21/24 tablet,extended release 24 hr metoprolol succinate 200 mg 200 mg PO QAM 08/10/24 10/21/24 tablet,extended release 24 hr insulin glargine 100 unit/mL 18 unit subcut UD 10/21/24 10/21/24 subcutaneous solution (Lantus U-100 Insulin) oxybutynin chloride 10 mg 10 mg PO DAILY 10/21/24 10/21/24 tablet,extended release 24 hr solifenacin 10 mg tablet 10 mg PO DAILY 10/21/24 10/21/24 Previous Rx's Medication Instructions Recorded blood sugar diagnostic (OneTouch #100 ea 04/26/23 Verio test strips) lancets 33 gauge (OneTouch Delica #100 ea 04/26/23 Plus Lancet) pen needle, diabetic 32 gauge x #100 ea 04/26/23 5/32" (Pen Needle) spironolactone 100 mg tablet 50 mg (1/2 x 100 mg) PO QAM #30 04/26/23 tabs acetaminophen 325 mg tablet 650 mg (2 x 325 mg) PO Q4H PRN #0 08/13/24 tabs rosuvastatin 20 mg tablet 20 mg PO QAM #90 tabs 09/26/24 clopidogrel 75 mg tablet (Plavix) 75 mg PO DAILY #90 tabs 10/07/24 cephalexin 500 mg capsule 500 mg PO BID 7 days #14 caps 10/21/24 Results & Data (ED) Vital Signs Vital Signs - 24 hr 10/21/24 16:18 10/21/24 16:54 10/21/24 17:08 Temperature Temperature Source Pulse Rate 138 H Pulse Rate [Apical] Pulse Rate from SpO2 Sensor Pulse Rhythm Pulse Rhythm [Apical] Pulse Strength Pulse Strength [Apical] Respiratory Rate Respiratory Effort / Characteristics Respiratory Depth Respiratory Pattern Blood Pressure Blood Pressure [Left Arm] Blood Pressure Mean Blood Pressure Mean [Left Arm] Blood Pressure Position Blood Pressure Position [Left Arm] Pulse Oximetry 93 Oxygen Delivery Method Room Air Room Air Oxygen Flow Rate Sepsis Recent Fever Within 48 Hours Sepsis New/Unexplained Change in Mental Status Sepsis Action Taken by Nursing 10/21/24 17:47 10/21/24 18:09 10/21/24 18:09 Temperature 37.6 C H Temperature Source Oral Pulse Rate 139 H Pulse Rate [Apical] 141 H Pulse Rate from SpO2 Sensor Pulse Rhythm Regular Pulse Rhythm [Apical] Pulse Strength Normal Pulse Strength [Apical] Respiratory Rate 25 H 24 Respiratory Effort / Characteristics Spontaneous Non-Labored Respiratory Depth Shallow Normal Respiratory Pattern Regular Regular Blood Pressure 202/116 H Blood Pressure [Left Arm] 202/116 H Blood Pressure Mean 144 Blood Pressure Mean [Left Arm] 144 Blood Pressure Position Lying Blood Pressure Position [Left Arm] Pulse Oximetry 94 94 Oxygen Delivery Method Nasal Cannula Room Air Room Air Oxygen Flow Rate 2 Sepsis Recent Fever Within 48 Hours No Sepsis New/Unexplained Change in Mental Status N/A Sepsis Action Taken by Nursing Physician Notified 10/21/24 18:09 10/21/24 19:00 10/21/24 19:03 Temperature Temperature Source Pulse Rate 122 H Pulse Rate [Apical] 139 H Pulse Rate from SpO2 Sensor 121 H Pulse Rhythm Pulse Rhythm [Apical] Regular Pulse Strength Pulse Strength [Apical] Normal Respiratory Rate 24 19 Respiratory Effort / Characteristics Non-Labored Respiratory Depth Normal Respiratory Pattern Regular Blood Pressure 117/63 Blood Pressure [Left Arm] 202/116 H Blood Pressure Mean 79 Blood Pressure Mean [Left Arm] 144 Blood Pressure Position Blood Pressure Position [Left Arm] Lying Pulse Oximetry 94 93 Oxygen Delivery Method Room Air Oxygen Flow Rate Sepsis Recent Fever Within 48 Hours Sepsis New/Unexplained Change in Mental Status Sepsis Action Taken by Nursing 10/21/24 19:30 Temperature Temperature Source Pulse Rate 120 H Pulse Rate [Apical] Pulse Rate from SpO2 Sensor 121 H Pulse Rhythm Pulse Rhythm [Apical] Pulse Strength Pulse Strength [Apical] Respiratory Rate 14 Respiratory Effort / Characteristics Respiratory Depth Respiratory Pattern Blood Pressure 100/64 Blood Pressure [Left Arm] Blood Pressure Mean 76 Blood Pressure Mean [Left Arm] Blood Pressure Position Blood Pressure Position [Left Arm] Pulse Oximetry 94 Oxygen Delivery Method Oxygen Flow Rate Sepsis Recent Fever Within 48 Hours Sepsis New/Unexplained Change in Mental Status Sepsis Action Taken by Prison Medications Current Medication List: was personally reviewed by me Laboratory Data Attestation: I reviewed the patient's lab results. 10/21/24 23:46 10/21/24 23:46 Lab Results 10/21/24 10/21/24 10/21/24 Range/Units 17:00 18:31 18:37 Sodium Potassium Chloride Carbon Dioxide Anion Gap BUN Creatinine Est Cr Clr Drug Dosing eGFR BUN/Creatinine Ratio Glucose POC Glucose 223 H (70-99) mg/dl Lactate 2.9 H* (0.4-2.0) mmol/L Calcium Magnesium 1.9 (1.7-2.4) mg/dl Total Bilirubin Direct Bilirubin AST ALT Alkaline Phosphatase Total Creatine Kinase 342 H (26-192) U/L Troponin I High Sens 58.0 H* (0-14) pg/ml Total Protein Albumin TSH 1.918 (0.300-4.500) uIu/ml Prolactin 6.45 ng/ml 10/21/24 Range/Units 18:51 Sodium Cancelled Potassium Cancelled Chloride Cancelled Carbon Dioxide Cancelled Anion Gap Cancelled BUN Cancelled Creatinine Cancelled Est Cr Clr Drug Dosing Cancelled eGFR Cancelled BUN/Creatinine Ratio Cancelled Glucose Cancelled POC Glucose (70-99) mg/dl Lactate (0.4-2.0) mmol/L Calcium Cancelled Magnesium (1.7-2.4) mg/dl Total Bilirubin Cancelled Direct Bilirubin Cancelled AST Cancelled ALT Cancelled Alkaline Phosphatase Cancelled Total Creatine Kinase (26-192) U/L Troponin I High Sens 228.1 H* D (0-14) pg/ml Total Protein Cancelled Albumin Cancelled TSH (0.300-4.500) uIu/ml Prolactin ng/ml Administered Medications Norepinephrine Bitartrate (Levophed/D5w) 4 mg in 250 mls @ 17.231 mls/hr IV .[id number] [facility]; Protocol Stop: 11/20/24 22:59 Last Titration: 10/22/24 01:14 Dose: 0.08 mcg/kg/min, 27.6 mls/hr Documented By: FRANCISCA Co-signed By: MARIA ISABEL Admin: 10/21/24 23:34 Dose: 0.05 mcg/kg/min, 17.2 mls/hr Documented By: MANOJ Co-signed By: MARIA Insulin Aspart (Insulin Aspart Per Unit Charge) 0 units SC ACHS OLE Stop: 11/20/24 22:04 Last Admin: 10/22/24 00:59 Dose: Not Given Documented By: FRANCISCA Pramipexole Dihydrochloride (Pramipexole Dihydrochlo 0.5 Mg Tab) 0.5 mg PO BID OLE Stop: 11/20/24 22:04 Last Admin: 10/21/24 22:31 Dose: Not Given Documented By: MANOJ Discontinued Medications Albumin Human (Albumin Human 5% 12.5 Gm/250 Ml Vial) Confirm Administered Dose 12.5 gm IV .STK-MED ONE Stop: 10/21/24 23:52 Last Admin: 10/21/24 23:56 Dose: Not Given Documented By: MARIA Sodium Chloride (Nss) 1,000 mls @ 999 mls/hr IV .Q1H1M ONE Stop: 10/21/24 18:07 Last Infusion: 10/21/24 18:47 Dose: Infused Documented By: Admin: 10/21/24 17:43 Dose: 999 mls/hr Documented By: FLORA Acetaminophen (Ofirmev) 1,000 mg in 100 mls @ 400 mls/hr IV NOW STA Stop: 10/21/24 17:54 Last Infusion: 10/21/24 18:46 Dose: Infused Documented By: Admin: 10/21/24 17:45 Dose: 400 mls/hr Documented By: FLORA Sodium Chloride (Nss) 500 mls @ 999 mls/hr IV .Q31M ONE Stop: 10/21/24 18:48 Last Infusion: 10/21/24 20:13 Dose: Infused Documented By: Admin: 10/21/24 19:19 Dose: 999 mls/hr Documented By: MANOJ Sodium Chloride (Nss) 500 mls @ 999 mls/hr IV .Q31M ONE Stop: 10/21/24 19:06 Last Infusion: 10/21/24 20:13 Dose: Infused Documented By: Admin: 10/21/24 19:19 Dose: 999 mls/hr Documented By: MANOJ Sodium Chloride (Nss) 1,000 mls @ 999 mls/hr IV .Q1H1M OLE Stop: 10/21/24 22:52 Last Infusion: 10/21/24 23:34 Dose: Infused Documented By: Admin: 10/21/24 22:13 Dose: 999 mls/hr Documented By: MANOJ Lactated Ringer's (Lr) 1,000 mls @ 999 mls/hr IV .Q1H1M OLE Stop: 10/22/24 00:00 Last Infusion: 10/21/24 23:33 Dose: Infused Documented By: Admin: 10/21/24 23:06 Dose: 999 mls/hr Documented By: MANOJ Albumin Human (Albumin 5%) 250 mls @ 500 mls/hr IV ONE ONE Stop: 10/22/24 00:19 Last Infusion: 10/22/24 01:00 Dose: Infused Documented By: Admin: 10/21/24 23:57 Dose: 500 mls/hr Documented By: MARIA Acetaminophen (Ofirmev) 1,000 mg in 100 mls @ 400 mls/hr IV NOW STA Stop: 10/22/24 01:00 Last Infusion: 10/22/24 01:02 Dose: Infused Documented By: Admin: 10/22/24 00:57 Dose: 400 mls/hr Documented By: FRANCISCA Piperacillin Sod/Tazobactam Sod (Zosyn) 4.5 gm in 100 mls @ 200 mls/hr IV ONE ONE; Protocol Stop: 10/22/24 01:29 Last Admin: 10/22/24 01:12 Dose: 200 mls/hr Documented By: FRANCISCA Ioversol (Optiray 320 100ml) 90 ml IV ONCE ONE Stop: 10/21/24 21:18 Last Admin: 10/21/24 21:17 Dose: 90 ml Documented By: MARILYN Ketorolac Tromethamine (Ketorolac Tromethamine 15 Mg/Ml Vial) 10 mg IV NOW ONE Stop: 10/21/24 17:41 Last Admin: 10/21/24 17:44 Dose: 10 mg Documented By: FLORA Levetiracetam (Levetiracetam 500 Mg/5 Ml Vial) 2,000 mg IV NOW STA Stop: 10/21/24 17:08 Last Admin: 10/21/24 17:43 Dose: 2,000 mg Documented By: GIRISH Lorazepam (Lorazepam 1 Mg/1 Ml Syr Ed Inj Use) 1 mg IV ONE STA Stop: 10/21/24 17:08 Last Admin: 10/21/24 17:54 Dose: Not Given Documented By: FLORA Lorazepam (Lorazepam 1 Mg/1 Ml Syr Ed Inj Use) 1 mg IM ONE STA Stop: 10/21/24 17:13 Last Admin: 10/21/24 17:14 Dose: 1 mg Documented By: FLORA Lorazepam (Lorazepam 1 Mg/1 Ml Syr Ed Inj Use) 0.5 mg IV ONE STA Stop: 10/21/24 17:41 Last Admin: 10/21/24 17:46 Dose: 0.5 mg Documented By: FLORA Morphine Sulfate (Morphine Sulfate 2 Mg/Ml Carp) 2 mg IV NOW STA Stop: 10/21/24 17:08 Last Admin: 10/21/24 17:55 Dose: Not Given Documented By: FLORA Morphine Sulfate (Morphine Sulfate 2 Mg/Ml Carp) 2 mg IM NOW STA Stop: 10/21/24 17:13 Last Admin: 10/21/24 17:14 Dose: 2 mg Documented By: FLORA Morphine Sulfate (Morphine Sulfate 4 Mg/Ml 1 Ml Carp\\Vial) 4 mg IM NOW STA Stop: 10/21/24 17:25 Last Admin: 10/21/24 17:28 Dose: 4 mg Documented By: FLORA Naloxone HCl (Naloxone Hcl 0.4 Mg/1 Ml Vial/Carp) 0.4 mg IV NOW STA Stop: 10/21/24 22:57 Last Admin: 10/21/24 23:06 Dose: 0.4 mg Documented By: MANOJ Naloxone HCl (Naloxone Hcl 0.4 Mg/1 Ml Vial/Carp) Confirm Administered Dose 0.4 mg .ROUTE .STK-MED ONE Stop: 10/21/24 23:00 Last Admin: 10/21/24 23:04 Dose: Not Given Documented By: MANOJ Naloxone HCl (Naloxone Hcl 0.4 Mg/1 Ml Vial/Carp) 0.4 mg IV NOW STA Stop: 10/21/24 23:23 Last Admin: 10/21/24 23:33 Dose: 0.4 mg Documented By: MANOJ Norepinephrine Bitartrate (Norepinephrine/D5w 4 Mg/250 Ml) Confirm Administered Dose 4 mg IV .STK-MED ONE Stop: 10/21/24 22:58 Last Admin: 10/21/24 23:05 Dose: Not Given Documented By: MANOJ Ondansetron HCl (Ondansetron Inj 2 Mg/Ml 2 Ml Vial) 4 mg IV NOW STA Stop: 10/21/24 17:08 Last Admin: 10/21/24 17:55 Dose: Not Given Documented By: FLORA Ondansetron HCl (Ondansetron 4 Mg Od Tab) 4 mg PO NOW STA Stop: 10/21/24 17:13 Last Admin: 10/21/24 17:17 Dose: 4 mg Documented By: FLORA Imaging Data Radiologist's Impression: Head CT 10/21/24 17:07 CT head without contrast History: Seizure. AMS Comparison: None Technique: Using multidetector thin collimation helical acquisition technique, axial, coronal and sagittal CT images from the skull base to the vertex were obtained without intravenous contrast. Dose reduction techniques were achieved by using automatic exposure control and/or adjustment of mA and/or kV according to patient size and/or use of iterative reconstruction technique. Findings: No intracranial hemorrhage, mass-effect, or midline shift. The ventricles are proportionate to the cerebral sulci. The rasmussen to white matter differentiation of the cerebral hemispheres is preserved. The basal cisterns are patent. The visualized paranasal sinuses are clear. Mastoid air cells are clear. Impression: No acute intracranial pathology. Electronically signed by Carlos Enrique Esparza 10-21-2024 6:20 PM Chest X-Ray 10/21/24 18:36 Chest radiograph, one view History: Chest pain Comparison: 04/19/2024 Findings: Single AP view of the chest performed. No focal consolidation or pleural effusion. No pneumothorax. The cardiomediastinal silhouette is within normal limits. Normal pulmonary vascularity. No evidence for lymphadenopathy. No visualized bony or soft tissue abnormality. There are resuscitation pads over the chest. Impression: Normal chest radiograph Electronically signed by Carlos Enrique Esparza 10-21-2024 7:23 PM Discharge Plan Visit Data Chief Complaint: Confusion Stated Complaint: AMS, SEIZURE ED Provider: Bereket Parsons Discharge Problem: Altered mental status, Hypertension, Tachycardia, Acute UTI, Seizure-like activity, Elevated troponin, Elevated lactic acid level Patient Disposition: Admitted As Inpatient Condition: Serious Discharge Instructions Interventions: ED Discharge Assessment Last Done: 10/22/24 00:02 Discharge Problem: Altered mental status Qualifiers: Altered mental status type: disorientation Qualified Code(s): R41.0 - Disorientation, unspecified Hypertension Qualifiers: Hypertension type: unspecified Qualified Code(s): I10 - Essential (primary) hypertension
[2024-10-21] MEDS: SODIUM CHLORIDE 0.9% 1,000 ML IV ONE (17:43)
[2024-10-21] MEDS: levETIRAcetam 500 MG/5 ML VIAL IV STA (17:43)
[2024-10-21] MEDS: KETOROLAC TROMETHAMINE 15 MG/ML VIAL IV ONE (17:44)
[2024-10-21] MEDS: ACETAMINOPHEN 1,000 MG/100 ML VIAL IV STA (17:45)
[2024-10-21] MEDS: LORazepam 1 MG/1 ML SYR ED Inj Use IV STA ×2 (17:46→17:54)
[2024-10-21 17:52] LABS: Thyroid Stimulating Hormone 1.918 uIu/ml (0.300-4.500)
[2024-10-21] MEDS: MoRPHine SULFATE 2 MG/ML CARP IV STA (17:55)
[2024-10-21] MEDS: ONDANSETRON INJ 2 MG/ML 2 ML VIAL IV STA (17:55)
--- NOTE | 2024-10-21 18:20 | CT Scan Report ---
CT head without contrast History: Seizure. AMS Comparison: None Technique: Using multidetector thin collimation helical acquisition technique, axial, coronal and sagittal CT images from the skull base to the vertex were obtained without intravenous contrast. Dose reduction techniques were achieved by using automatic exposure control and/or adjustment of mA and/or kV according to patient size and/or use of iterative reconstruction technique. Findings: No intracranial hemorrhage, mass-effect, or midline shift. The ventricles are proportionate to the cerebral sulci. The rasmussen to white matter differentiation of the cerebral hemispheres is preserved. The basal cisterns are patent. The visualized paranasal sinuses are clear. Mastoid air cells are clear. Impression: No acute intracranial pathology. Electronically signed by Carlos Enrique Esparza 10-21-2024 6:20 PM
[2024-10-21] MEDS: SODIUM CHLORIDE 0.9% 500 ML IV ONE ×2 (19:19)
--- NOTE | 2024-10-21 19:23 | XRay Report ---
Chest radiograph, one view History: Chest pain Comparison: 04/19/2024 Findings: Single AP view of the chest performed. No focal consolidation or pleural effusion. No pneumothorax. The cardiomediastinal silhouette is within normal limits. Normal pulmonary vascularity. No evidence for lymphadenopathy. No visualized bony or soft tissue abnormality. There are resuscitation pads over the chest. Impression: Normal chest radiograph Electronically signed by Carlos Enrique Esparza 10-21-2024 7:23 PM
--- NOTE | 2024-10-21 20:54 | History & Physical Report ---
Date of Service October 21, 2024 Assessment & Plan (1) Seizure-like activity: (2) Acute UTI: (3) Elevated troponin: (4) Hypotension: Plan 68-year-old female PMHx recently diagnosed UTI, CHF, T2DM, HTN, hypercholesterolemia, CAD, and chronic leg/back pain presenting to ED via EMS fo r seizure-like activity and confusion, initially starting 0300 the day of arrival and worsening in severity throughout the day. Throughout the course of both ED visits the day of admission, patient did not have leukocytosis, no gross electrolyte abnormalities, but lactate was found to be 2.9, pending repeat, and initial troponin was 58.0, 228 on repeat, pending repeat. Prolactin was 6.45, TSH 1.918. CXR did not reveal acute findings, and head CT was also WNL. The patient's EKG was sinus tachycardia but otherwise WNL. While in the ED, patient received 2L NSS, Zofran, morphine, lorazepam, Keppra, ketorolac, acetaminophen. #Seizure-like activity No formal history of seizures, ? that this has been happening for the first time ~ 6-12 months ago, was only one limb but has worsened. ~ 0300 day of arrival first episode, then occurring again while pt was in the car of parking lot. Rigid and ? post-ictal state following this episode. No recent trauma or falls. Denies ETOH use or illicit drug use. - Labs are grossly WNL with exception of lactate 2.9, repeat 2.3; troponin 58, repeat 228, pending repeat. Prolactin 6.45, TSH 1.918, ammonia 39.0, CK 342, pending UDS. - CT head w/o acute findings; pending MRI w/ seizure protocol - EEG ordered, pending - Neuro not consulted at the time of admission but did speak w/ ED physician, recommend no further Keppra at this time- recommend neurology consult #Hypotension Pt persistently hypotensive despite fluid resuscitation. Sepsis fluids @ 1.7 L, received. Total of 4L provided. ? sepsis but without leukocytosis, does have elevated lactate. - Requiring Levophed - Received 2 doses of narcan 2/2 to ? narcotic impact on clinical status; responding verbally after first dose then back to snoring, provided with second dose and responding again; only received 6mg total - HOLD HTN medications - ? sepsis - pending blood cultures - Technician'S Helper consulted - appreciate assistance in case #UTI Symptoms of lower abdominal pain, stated to "I feel like I am getting a UTI"; H/o failed outpatient treatment for UTI requiring inpatient admission. History of pseudomonas on past cultures. Started on Keflex in ED discharge the day of arrival. CTAP suggestive of hydroureteronephrosis, w/o stone identified- suspect 2/2 infection. - UA show turbid appearance, presence of protein, glucose, blood, LE, WBC, RBC, hyaline cast, epithelial cell, and bacteria; pending cx - Given persistent elevated lactate following fluid resuscitation-> CTAP nonspecific bilateral perinephric fat stranding, mild bilateral hydroureteronephrosis without obstructing stone identified, bladder wall thickening and surrounding fat stranding, hepatic steatosis, hepatomegaly. - Was prescribed Keflex for outpatient management but given h/o failed outpati ent tx + she was given a dose of ceftriaxone in the ED and has not yet started Keflex- adjusting to Zosyn #Elevated troponin/CAD/CHF H/o CAD with prior "extensive" stenting per cardiology note, follows with [facility] most recently 10/13/2024; Prior stents in the LAD x3, proximal RCA, and proximal posterolateral branch, presence of CHELSIE but extensive stenting so on DAPT still. Not appearing in pain, unable to clarify if she is having chest pain but there were no complaints of such per . Appearing euvolemic on exam, CXR supportive of such. - EKG sinus tachycardia w/o signs of ischemia - Troponin is elevated on admission 58, repeat 228, pending repeat - Cardio meds- Metoprolol, ASA, Plavix, spironolactone - hold spironolactone until hypotension resolves - SCDS, promote leg elevation + frequent movement as it allows #T2DM H/o DMT2; at home regimen Lantus 18 U SQ - Most recent A1C 08/2024 @ 7.8% - SSI with target BSG range 110-140mg/dL, CF 25, carb ratio 10; Lantus 18 U daily - BSG ACHS - Pharm glycemic management consult placed- Adjust regimen as needed #Spinal stenosis, lumbar region- Does follow with ortho most recently 10/16/2024; Previously followed with neurology and PT. Pain medications as ordered. #OAB-oxybutynin, Solifenacin #HTN-metoprolol, isosorbide mononitrate #HLD-rosuvastatin #Restless leg syndrome-pramipexole Dispo: Admit, ICU for hypotension requiring Levophed VTE Prophylaxis: SCDs This document was dictated utilizing [employer]. Please excuse any grammatical errors that may be secondary to use of this software. Admission and Anticipated Discharge Date Admission Date: 10/21/2024 History of Present Illness Chief Complaint: Seizure-like activity Primary Care Provider: Akilah Cook PA-C 68-year-old female PMHx recently diagnosed UTI, CHF, T2DM, HTN, hypercholesterolemia, CAD, and chronic leg/back pain presenting to ED via EMS for seizure-like activity and confusion. Recent hospitalization 08/10/2024- 08/13/2024 for UTI, failure with outpatient treatment. Patient initially woke at 0300 the morning of arrival and was having stiffness in BUE, per the patient's which resolved within a few minutes. When the patient woke for the day, she went to the [facility] to be evaluated where she was given a magnesium tablet and then discharged home. Given that she was still not feeling better, she told her that she wanted to be evaluated at [facility]. Patient was evaluated in the ED the day of arrival at around 1200, found to have UTI and provided with ceftriaxone as well as Keflex (outpatient), and magnesium was replaced. While patient was at the [facility] parking lot in her car while her was inside the store, he came out to the car noticed that she was having seizure-like activity, but is unsure for how long. States that it could have been upwards of 15 minutes but is unsure. When he came to the car and tried to get in, the doors were locked and the patient was able to understand to try to unlock the door, but was unable to actually perform the task because her arms were stiff and in fists. does not believe that the patient lost consc iousness. EMS was called, and by the time EMS arrived the patient was still rigid when getting out of the car, seemed agitated and confused, and was only responsive to pain. Upon arrival to the ED, the patient was still confused, yelling, complaining of leg and back pain. During time of admission, the patient is sleeping in the bed and her helps to provide the history. She responds to pain and will make noises, but does not verbalize. 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 Also states that she was having some lower abdominal pain the day of arrival. Throughout the course of both ED visits the day of admission, patient did not have leukocytosis, no gross electrolyte abnormalities, but lactate was found to be 2.9, pending repeat, and initial troponin was 58.0, pending repeat. Prolactin was 6.45, TSH 1.918. CXR did not reveal acute findings, and head CT was also WNL. The patient's EKG was sinus tachycardia but otherwise WNL. While in the ED, patient received 2L NSS, Zofran, morphine, lorazepam, Keppra, ketorolac, acetaminophen. Please see Dr. Magallanes's attestation for adjustments/additions to treatment plan. Allergies Allergy/AdvReac Type Severity Reaction Status Date / Time bee venom protein (honey bee) Allergy Severe DIFFICULTY Verified 10/13/24 11:32 BREATHING/HIVES/ITCHY Home Medications Medication Instructions Recorded Confirmed Type aspirin 81 mg tablet,delayed 81 mg PO DAILY 07/06/20 10/21/24 History release (Adult Low Dose Aspirin) blood sugar diagnostic (OneTouch #100 ea 04/26/23 10/13/24 Rx Verio test strips) lancets 33 gauge (OneTouch Delica #100 ea 04/26/23 10/13/24 Rx Plus Lancet) pen needle, diabetic 32 gauge x #100 ea 04/26/23 10/13/24 Rx 5/32" (Pen Needle) spironolactone 100 mg tablet 50 mg (1/2 x 100 mg) PO QAM #30 04/26/23 10/21/24 Rx tabs pramipexole 0.25 mg tablet 0.5 mg PO BID 04/19/24 10/21/24 History isosorbide mononitrate 30 mg 30 mg PO QAM 08/10/24 10/21/24 History tablet,extended release 24 hr metoprolol succinate 200 mg 200 mg PO QAM 08/10/24 10/21/24 History tablet,extended release 24 hr acetaminophen 325 mg tablet 650 mg (2 x 325 mg) PO Q4H PRN #0 08/13/24 10/21/24 Rx tabs rosuvastatin 20 mg tablet 20 mg PO QAM #90 tabs 09/26/24 10/21/24 Rx clopidogrel 75 mg tablet (Plavix) 75 mg PO DAILY #90 tabs 10/07/24 10/21/24 Rx cephalexin 500 mg capsule 500 mg PO BID 7 days #14 caps 10/21/24 10/21/24 Rx insulin glargine 100 unit/mL 18 unit subcut UD 10/21/24 10/21/24 History subcutaneous solution (Lantus U-100 Insulin) oxybutynin chloride 10 mg 10 mg PO DAILY 10/21/24 10/21/24 History tablet,extended release 24 hr solifenacin 10 mg tablet 10 mg PO DAILY 10/21/24 10/21/24 History Past Med/Surg History Problem List Hypotension Elevated troponin Seizure-like activity Cramps, muscle, general (Acute) Acute UTI (Acute) Lumbar spondylosis Lumbar stenosis with neurogenic claudication Spondylolisthesis, lumbar region Scoliosis of lumbar region due to degenerative disease of spine in adult Left leg weakness Recurrent UTI Sciatica (Acute) Fever (Acute) CHF (congestive heart failure) Acute metabolic encephalopathy Tachycardia Uncontrolled type 2 diabetes mellitus with hyperglycemia Altered mental status Sepsis Lumbar facet joint syndrome Spinal stenosis, lumbar region without neurogenic claudication Hypercholesteremia HTN (hypertension) (Acute) Restless leg Coronary artery disease Surgical History History of lumbar surgery L4-5 discectomy Social History Smoking Status: Former smoker Tobacco Type: Cigarettes Hx Alcohol Use: No Hx Substance Use: No Preferred Language: Kinyarwanda Communication Ability: Effective Visual Impairment: Limited Hearing Ability: Hard of Hearing 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 Physical Exam Physical Exam: General: No acute distress, sleeping in bed Skin: Warm and dry, without rashes or lesions. Head: Normocephalic, atraumatic Eyes: PERRL, conjunctivae clear, sclera non-icteric ENT: External ear and ear canal without swelling; nose atraumatic; fair dentition, tongue normal appearance, pharynx appearing dry Neck: Supple, no LAD; no JVD Cardio: Tachycardic, regular rhythm, no M/G/R, S1 and S2 normal Resp: No respiratory distress, Lungs CTA in all lobes bilaterally, no wheezes, rales, or rhonchi Abdomen: Soft, symmetric, nontender; no distention; No masses or hepatosplenomegaly; Bowel sounds normoactive MSK: No deformities, full ROM throughout; pulses palpable and equal; no edema. Neuro: Asleep; CN appearing grossly intact; responsive to pain and young family member present in room at time of visit. Results & Data Results & Data Vital Signs (Past 12 Hours) Vital Signs Temp Pulse Pulse Resp BP BP Pulse Ox 10/21/24 18:09 139 H 24 202/116 H 94 10/21/24 18:09 10/21/24 18:09 37.6 C H 139 H 24 202/116 H 94 10/21/24 17:47 141 H 25 H 202/116 H 94 10/21/24 17:08 93 10/21/24 16:54 138 H 10/21/24 16:18 O2 Del Method O2 Flow Rate 10/21/24 18:09 Room Air 10/21/24 18:09 Room Air 10/21/24 18:09 Room Air 10/21/24 17:47 Nasal Cannula 2 10/21/24 17:08 Room Air 10/21/24 16:54 10/21/24 16:18 Room Air Laboratory Results 10/21/24 18:46 Aerobic Blood Culture - Pending Blood Anaerobic Blood Culture - Pending 10/21/24 18:31 Aerobic Blood Culture - Pending Blood Anaerobic Blood Culture - Pending 10/21/24 10/21/24 10/21/24 18:51 18:37 18:31 POC Glucose 223 H Lactate 2.9 H* Magnesium Troponin I High Sens 228.1 H* D TSH Prolactin 10/21/24 17:00 POC Glucose Lactate Magnesium 1.9 Troponin I High Sens 58.0 H* TSH 1.918 Prolactin 6.[address] 10/21/24 17:07 CT head without contrast History: Seizure. AMS Comparison: None Technique: Using multidetector thin collimation helical acquisition technique, axial, coronal and sagittal CT images from the skull base to the vertex were obtained without intravenous contrast. Dose reduction techniques were achieved by using automatic exposure control and/or adjustment of mA and/or kV according to patient size and/or use of iterative reconstruction technique. Findings: No intracranial hemorrhage, mass-effect, or midline shift. The ventricles are proportionate to the cerebral sulci. The rasmussen to white matter differentiation of the cerebral hemispheres is preserved. The basal cisterns are patent. The visualized paranasal sinuses are clear. Mastoid air cells are clear. Impression: No acute intracranial pathology. Electronically signed by Carlos Enrique Esparza 10-21-2024 6:20 PM Chest X-Ray 10/21/24 18:36 Chest radiograph, one view History: Chest pain Comparison: 04/19/2024 Findings: Single AP view of the chest performed. No focal consolidation or pleural effusion. No pneumothorax. The cardiomediastinal silhouette is within normal limits. Normal pulmonary vascularity. No evidence for lymphadenopathy. No visualized bony or soft tissue abnormality. There are resuscitation pads over the chest. Impression: Normal chest radiograph Electronically signed by Carlos Enrique Esparza 10-21-2024 7:23 PM [facility], [place] [phone] CT Scan Report Patient: EDWARD AMEZCUA Admit Date: 10/21/24 MR#: [id number] Address1: [address] [place] [address] Acct ID:[id number] Address2: Date: 1955 [facility] Zip: [place] [id number] Age: 68 Location: ED Sex: F Room/Bed: Att Phy: Diagnosis: AMS, SEIZURE Chante Phy: Akilah Cook PA-C Service Date: 10/21/24 [facility] Phy: Interpreting Phy: Stephanie Lynn MDAdmchet Phy: Ordering Phy: Georges Gupta PA-C cc: ~ Exam(s): CT ABDOMEN + PELVIS W/WO Contrast IV Amt: 90 ml opti 320 EXAM: CT Abdomen and Pelvis Without and With Intravenous Contrast CLINICAL HISTORY: Reason for exam: Elevated lactate, UTI. TECHNIQUE: Axial computed tomography images of the abdomen and pelvis without and with intravenous contrast. CTDI is 56.01 mGy and DLP is 2705.59 mGy-cm. Automated exposure control was utilized for the study. A dose lowering technique was utilized adhering to the principles of ALARA. CONTRAST: Patient received 90 ml opti 320 of IV contrast COMPARISON: CT abdomen/pelvis on 08/10/2024 FINDINGS: Lung bases: Lower lung atelectasis. ABDOMEN: Liver: Hepatic steatosis. Hepatomegaly. Gallbladder and bile ducts: Unremarkable. No calcified stones. No ductal dilation. Pancreas: Unremarkable. No mass. No ductal dilation. Spleen: Borderline size of the spleen. Adrenals: Unremarkable. No mass. Kidneys and ureters: Nonspecific bilateral perinephric fat stranding. Mild bilateral hydroureteronephrosis without obstructing stone identified. Findings may be secondary to infection. Stomach and bowel: Evaluation of the stomach is limited by under distention. No mucosal thickening. PELVIS: Appendix: Normal appendix. Bladder: Bladder wall thickening and surrounding fat stranding, concerning for cystitis. Please correlate with urinalysis. No stones. Reproductive: Uterine fibroids. ABDOMEN and PELVIS: Intraperitoneal space: Unremarkable. No free air. No significant fluid collection. Bones/joints: Curvature of the spine. Degenerative changes of the spine. Grade 1 anterolisthesis of L3 on L4. No acute fracture. No dislocation. Soft tissues: Small fat-containing umbilical hernia. Vasculature: Atherosclerotic changes of the vasculature. No abdominal aortic aneurysm or dissection. Phleboliths in the pelvis. Lymph nodes: Unremarkable. No enlarged lymph nodes. IMPRESSION: 1. Nonspecific bilateral perinephric fat stranding. Mild bilateral hydroureteronephrosis without obstructing stone identified. Findings may be secondary to infection. 2. Bladder wall thickening and surrounding fat stranding, concerning for cystitis. Please correlate with urinalysis. 3. Hepatic steatosis. Hepatomegaly. Electronically signed by: Stephanie Lynn M.D. 10/21/24 21:50 PM Dictated: 10/21/242149 Transcribed: 10/21/242149 Medications Administered Acetaminophen 1g IV Ketorolac 10mg IV Levetiracetam 2g IV Lorazepam 2.5mg IV/IM total Morphine sulfate 6 mg IV/IM total Ondansetron 8mg IV/po total 2L NSS IV ECG Additional Comments: ST 138 bpm, AK 152, QRS 84, QT/QTc 272/412. PRT 46/36/35 Code Status & VTE Plan Code Status Full VTE Prophylaxis Plan VTE Prophylaxis will be ordered: Yes Supervising Physician Co-Signing Physician Notes Patient seen and examined, chart reviewed, case discussed with SHANAE Gupta and I agree with the assessment and plan as above. In brief, patient is a 68yo female with history of CHF (EF=65%), HTN, HLP, CAD and Chronic back pain presenting with seizure like activity. Patient recently diagnosed with UTI and was treated with antibiotics. She developed seizure-like movements today (arms rigid, relative unresponsiveness). Patient combative upon arrival. She was administered IM Ativan (1.5mg in total - last dose at 17:46) and IM Morphine (6mg IM in total - last at 17:28). Patient initially with tachycardia, stable blood pressure. She became acutely hypotensive in the ER - blood pressure to 54/34. She was administered 3L NSS + 1L LR as well as two doses of IV Narcan (0.4mg x 2) and 5% Albumin x 250mL. She had brief improvement in her responsiveness following the Narcan, however, blood pressure improvement was not sustained therefore she was started on Levophed gtt. A triple-lumen CVC was placed in the right groin under sterile technique by MICU PART TIME RECEPTIONIST-Peri and patient was transferred to the ICU. was notified of patient's decline in condition and is planning to come to the ICU. Suspect septic shock secondary to UTI/pyelonephritis. CT findings as above - no obstructing stone. -Will admit to MICU -Continue Levophed as needed to maintain MAP >60 -Zosyn for coverage - suspected urinary source. Patient with history of Pseudomonas in the past -Consider Urology consultation - CT does not mention obstructing stone, however, septic shock with bilateral hydronephrosis does raise concern for obstruction -Monitor respiratory status - patient continues to be somnolent. Body habitus and snoring suggests that she is at high risk for obesity hypoventilation - will trial on CPAP for now with low threshold for intubation. This was discussed with . -Questionable seizure-like activity - ?rigors as a possibility as well. MRI Brain ordered and should be obtained when patient is more hemodynamically stable. -EEG ordered -Remainder as above PG Care Time/CCT Total # of Minutes Spent Total Time Spent with Patient: Total time spent is greater than 50% in coordination of care (as documented) at patient's floor/unit and/or counseling patient: Coding Level of Care Code 31070 INT INP/OBS CARE 375MIN Diagnoses Seizure-like activity R56.9 Acute UTI N39.0 Elevated troponin R79.89 Hypotension I95.9
[2024-10-21] MEDS: OPTIRAY 320 100ml IV ONE (21:17)
--- NOTE | 2024-10-21 21:51 | CT Scan Report ---
Exam(s): CT ABDOMEN + PELVIS W/WO Contrast IV Amt: 90 ml opti 320 EXAM: CT Abdomen and Pelvis Without and With Intravenous Contrast CLINICAL HISTORY: Reason for exam: Elevated lactate, UTI. TECHNIQUE: Axial computed tomography images of the abdomen and pelvis without and with intravenous contrast. CTDI is 56.01 mGy and DLP is 2705.59 mGy-cm. Automated exposure control was utilized for the study. A dose lowering technique was utilized adhering to the principles of ALARA. CONTRAST: Patient received 90 ml opti 320 of IV contrast COMPARISON: CT abdomen/pelvis on 08/10/2024 FINDINGS: Lung bases: Lower lung atelectasis. ABDOMEN: Liver: Hepatic steatosis. Hepatomegaly. Gallbladder and bile ducts: Unremarkable. No calcified stones. No ductal dilation. Pancreas: Unremarkable. No mass. No ductal dilation. Spleen: Borderline size of the spleen. Adrenals: Unremarkable. No mass. Kidneys and ureters: Nonspecific bilateral perinephric fat stranding. Mild bilateral hydroureteronephrosis without obstructing stone identified. Findings may be secondary to infection. Stomach and bowel: Evaluation of the stomach is limited by under distention. No mucosal thickening. PELVIS: Appendix: Normal appendix. Bladder: Bladder wall thickening and surrounding fat stranding, concerning for cystitis. Please correlate with urinalysis. No stones. Reproductive: Uterine fibroids. ABDOMEN and PELVIS: Intraperitoneal space: Unremarkable. No free air. No significant fluid collection. Bones/joints: Curvature of the spine. Degenerative changes of the spine. Grade 1 anterolisthesis of L3 on L4. No acute fracture. No dislocation. Soft tissues: Small fat-containing umbilical hernia. Vasculature: Atherosclerotic changes of the vasculature. No abdominal aortic aneurysm or dissection. Phleboliths in the pelvis. Lymph nodes: Unremarkable. No enlarged lymph nodes. IMPRESSION: 1. Nonspecific bilateral perinephric fat stranding. Mild bilateral hydroureteronephrosis without obstructing stone identified. Findings may be secondary to infection. 2. Bladder wall thickening and surrounding fat stranding, concerning for cystitis. Please correlate with urinalysis. 3. Hepatic steatosis. Hepatomegaly. Electronically signed by: Stephanie Lynn M.D. 10/21/24 21:50 PM
[2024-10-21] MEDS ORDERED: GLUCAGON FOR INJ 1 MG VIAL SQ PRN (22:05)
[2024-10-21] MEDS ORDERED: DEXTROSE 50% 50 ML SYRINGE IV PRN (22:05)
[2024-10-21] MEDS ORDERED: MoRPHine SULFATE 2 MG/ML CARP IV PRN (22:05)
[2024-10-21] MEDS ORDERED: GLUCOSE 40% GEL 15 GM TUBE PO PRN (22:05)
[2024-10-21] MEDS ORDERED: MoRPHine SULFATE 4 MG/ML 1 ML CARP\\VIAL IV PRN (22:05)
[2024-10-21] MEDS ORDERED: PHARMACY GLYCEMIC MGMT CONSULT PRN (22:05)
[2024-10-21] MEDS ORDERED: CARBOHYDRATES FOR HYPOGLYCEMIA PO PRN (22:05)
[2024-10-21] MEDS ORDERED: GLUCOSE 10 TAB/TUBE PO PRN (22:05)
[2024-10-21] MEDS ORDERED: ACETAMINOPHEN 325 MG TAB PO PRN (22:05)
[2024-10-21] MEDS ORDERED: KETOROLAC TROMETHAMINE 15 MG/ML VIAL IV PRN (22:05)
[2024-10-21] MEDS: SODIUM CHLORIDE 0.9% 1,000 ML IV SCH (22:13)
[2024-10-21] MEDS: PRAMIPEXOLE DIHYDROCHLO 0.5 MG TAB PO SCH (22:31)
[2024-10-21] MEDS ORDERED: STAT IV Infusion **Titration per Protocol STA (22:56)
[2024-10-21] MEDS: NALOXONE HCL 0.4 MG/1 ML VIAL/CARP ONE (23:04)
[2024-10-21] MEDS: NOREPINEPHRINE/D5W 4 MG/250 ML IV ONE (23:05)
[2024-10-21] MEDS: LACTATED RINGER'S 1,000 ML IV SCH (23:06)
[2024-10-21] MEDS: NALOXONE HCL 0.4 MG/1 ML VIAL/CARP IV STA ×2 (23:06→23:33)
[2024-10-21] MEDS: NOREPINEPHRINE/D5W 4 MG/250 ML PLCT IV SCH (23:34)
[2024-10-21 23:46] LABS: Amphetamines+Metham, Urine Neg (Neg); Barbiturates, Urine Neg (Neg); Benzodiazepine, Urine Neg (Neg); Cocaine, Urine Neg (Neg); Fentanyl, Urine Neg (Neg); MDMA (Ecstacy), Urine Neg (Neg); Marijuana, Urine Neg (Neg); Methadone, Urine Neg (Neg); Opiate, Urine Pos (Neg); Phencyclidine, Urine Neg (Neg)
[2024-10-21 23:50] LABS: Base Excess VBG -10.9 mEq/L; HCO3 VBG 18 mmol/L; Oxygen Saturation VBG < 60.0 %; PCO2 VBG 50 mmHg (38-50); PO2 VBG 35 mmHg; pH VBG 7.16 (7.36-7.41)
[2024-10-21] MEDS: ALBUMIN HUMAN 5% 12.5 GM/250 ML VIAL IV ONE (23:56)
[2024-10-21] MEDS: ALBUMIN 5% 250 ML IV ONE (23:57)
--- NOTE | 2024-10-22 00:12 | Procedure Note ---
Procedure Note Date of Service October 22, 2024 Procedure:Femoral Vein Central Line [place] Proceduralist: Akash ALLEN ([facility]) Attending: Dr. Amaral Indication: Central Drug Administration, Poor Venous Access, Multiple Lab Draws Necessary, etc. Anesthesia: x Lidocaine 1% Emergent/Urgen Consent was implied as patient is FULL CODE, is with poor vascular access and hemodynamic compromise requiring escalating doses of vasopressors and need for STAT labs. A time-out was completed verifying correct patient, procedure, site, positioning. Patients RIGHT GROIN was cleansed and draped in the typical sterile fashion using Chloraprep. The FEMORAL Vein and FEMORAL Artery were identified using ultrasound. The superficial tissue was anesthetized using 5 mL of 1% lidocaine without epinephrine under direct visualization with the ultrasound. After adequate anesthetization was achieved, the FEMORAL vein was cannulated under direct ultrasound guidance using an introducer needle on a syringe. Good venous blood return was maintained prior to removal of syringe from introducer needle. Using Seldinger Technique, a guide wire was advanced through the introducer needle without resistance. The introducer needle was removed and ultrasound images were obtained of the guide wire within the FEMORAL Vein, NOT saved to record as Emergent. A small incision was made in penetrating fashion at the guide wire insertion site utilizing an 11 blade scalpel. The dilator was advanced to the vessel without resistance. The dilator was exchanged for the triple lumen catheter which was advanced into the vessel without resistance. The guide wire was removed intact from the catheter without issue. Claves were placed on each catheter tip with confirmation of good blood flow from each lumen. Each port was easily flushed with sterile saline. The catheter was placed at 20 cm and sutured in place. CHG impregnated sterile line was applied to the catheter and a sterile Tegaderm dressing was applied over the catheter with careful attention to sterility. Patient tolerated procedure well. No immediate complications were met. Images obtained are NOT saved for permanent record as this was emergent Artery AND Vein visualized: YES Compressible Vein: YES Guidewire or Short Catheter seen in vein prior to dilation: YES [facility] [place] Procedure Codes (Charges) Tubes, Drains, and Vasc Access Procedure 1: Tubes, Drains, and Vasc Access: [id number] Insertion Of Non-tunneled Catheter Age 7 Yrs> Coding CPT Codes Tubes, Drains, and Vasc Access - Tubes, Drains, and Vasc Access: [id number] Insertion Of Non-tunneled Catheter Age 7 Yrs> ([id number]) Additional Codes Date of Service (PG.SURGERY)
--- NOTE | 2024-10-22 00:13 | Critical Care Consultation ---
Date of Consultation October 22, 2024 Assessment & Plan (1) Seizure-like activity: (2) Pyelonephritis: (3) Septic shock: (4) Encephalopathy: (5) Lumbar stenosis with neurogenic claudication: (6) CHF (congestive heart failure): (7) HTN (hypertension): (8) Hypercholesteremia: Plan ICU CONSULT NOTE FORMAT: Reason Critically Ill: 68 YOF brought back to the ER for possible seizure like activity in setting of UTI, no encephalopathic, hypotensive requiring vasopressors and acidotic. Neuro - Encephalopathy, possible seizure like activity, lumbar stenosis with radicular sx CAM ICU: NIRAJ - Possible rigors in setting of pyelonephritis/septic shock vs seizure like activity vs. Rigors vs. other- At this time after talking with ER Physician and at bedside, likely Rigors - head CT negative on arrival for LVO, hemorrhage, or mass - No reports of headaches, neck pain - Patient reported contractures this morning, however appears that she has a distant history of this as well that self resolved - Magnesium has been replaced and serum calcium low- will check iCA and replete - Once stabilized from acid base status, respiratory status, and hemodynamics obtain MRI with and without contrast- eval for CVA, any parenchymal involvement suggestive of encephalitis - EEG in morning already ordered by hospitalist service - Roberto- was loaded in ER with 2GM- will hold on follow up dose at this time- consider if needed 500-1000 mg IV BID - Encephalopathy more likely in setting of severe septic shock- however possible as above - She may have also have component of hypercarbia in setting of obstruction with encephalopathy - Consider LP if remains elusive - Acute on chronic back pain with radicular symptoms described in chart and on previous MRI- may also have component of pyelonephritis at this time- hold further sedating medications Cardiac - Shock- septic, Elevated HsCTNI hx: HTN, HFpEF, HLD, CAD - Hypotensive, Tachycardic, elevated Lactate, Source urine- Resuscitated with 4Liters Crystalloid as initially volume responsiveness was reported - Now requiring vasopressors- continue with LEVOphed to maintain MAPS >65- if further agents needed add vasopressors - Bedside POCUS with adequate squeeze of ventricles and septum, flattened IVC and hyperdynamic LV, no pericardial effusion- bolus infusing as above - See ID section below - hold further antihypertensives - HX CAD- stents to LAD x3, proximal RCA, PDA, 2017 mid RCA- hold DAPT until evaluation for possible LP - HsCTNI likely elevated secondary to demand at this time- ECG is without ST elevations Respiratory - Respiratory failure- hypercarbic - Likely in setting of encephalopathy with worsening by sedative medications - Narcan as above administered with minimal effect and time of administration of these although IM is > 7 hours ago - CPAP/BIPAP with Back up rate at this time 24, 12/5 - expect improvement in her ABG- if no improvement will pursue intubation GI - NO acute needs at this time - hx of hepatic steatosis RENAL/LYTES - CARLIN on CKD, electrolyte disturbances, Mixed Metabolic and Respiratory Acidosis - Defend MAP >65 - Replete magnesium and calcium - ICU electrolyte protocol - Bilateral hydroureteronephrosis with perinephric stranding in setting of UTI- likely pyelonephritis - Respiratory acidosis corrected with BiPAP - remains with mild metabolic acidosis- follow bicarb and PH - As above - Continue supportive care- no obstruction noted - Chi to gravity ENDO - DMII - ICU hyperglycemic protocol - TSH NML HEME - No acute needs ID - Septic Shock- UTI complicated- pyelonephritis - As above UA pending, blood cultures pending - Continue Zosyn - Broaden out if concern for STEEL LAYER infection changes or patient status worsens LINES/IV ACCESS - CVL Right GROIN, [place] LT wrist, Chi Continue use of these lines - CVL placed sterile x1 attempt - [place] placed sterile- x 1 attempt DVT PROPHYLAXIS - SCDS, hold on chirography until decision on LP DISPO: ICU until hemodynamics and respiratory status are proven stable I have personally spent 65 minutes of critical care time in the direct management of this patient. This is a life/limb threatening event. This includes time spent evaluating patient, direct bedside care, chart review, placing orders, interpretation of diagnostic studies, discussion with consultants, patient, and family members, as well as other required patient management activities. This time is exclusive of all separately billable procedures, and separate from and in addition to any other critical care service time. Thank you for allowing us to participate in the care of this patient. Please refer to my attending physician's documentation for any further recommendations. Supervising Physician Co-Signing Physician Notes I have personally evaluated and examined this patient. I agree with assessment and plan of Bindu ALLEN. Deep chart review, noted severe focal stenosis of internal carotid artery rates in prior 6 neck CTA. Prior admissions involve similar complaints as today, additionally waxing and waning blood pressures and recurrent urinary tract infections. Will obtain carotid duplex, vascular surgery consult, patient may need follow-up with urology given recurrent urinary tract infections and bilateral fat stranding noted on CT today question possible reflux History of Present Illness Reason for Consultation: hypotensive with encephalopathy Requesting Physician: Ashley Magallanes DO Attending Physician: Ashley Magallanes DO History of Present Illness 68 YOF presents to the ER earlier today for "muslce spasms" and urinary incontinence, she was treated for hypomagnesemia and UTI and discharged following deferring on further work up regarding her "spasms" that reportedly was her upper and lower extremities. She went to get her prescriptions filled, and when her returned to the car, she was thought to be having a seizure. EMS was summoned and she was brought to the ER. In the ER there was difficulty obtaining IV access and she was given IM Ativan and IM morphine for complaints of back pain, which also appears chronic. Patient was also noted to be notably hypertensive at that time. Patient had CT of her abdomen and pelvis as well as CT head obtained. CT head was negative for any acute bleed or LVO and CT abdomen/pelvis was obtained and she was noted to have some hydronephrosis without reported obstruction and bilateral sara-nephric stranding and bladder wall thickening. Patient appeared to be stabilized and back more to her baseline, she was admitted under hospitalist service. I was contacted by admitting team after they were notified by nursing staff of patient being hypotensive and less arousable. Patient was noted to be 80s/40s on arrival and responded with groan to deep pain. She was empirically given Narcan and IVF bolus x1 liter was infusing. Patient did have some response to Narcan and did awaken to groan moan and say "turn me over", she remained with her eyes closed, but was moving all her extremities and localizing to pain. Following short course of improved mentation as well as slight increase in her BP, she became hypotensive again and obtunded. She was with poor IV access as well as 2 failed attempts and 2 failed phlebotomy attempts, she was given another dose of Narcan without response and vasopressors were required. I placed emergent but sterile Femoral line in her RIGHT groin for emergent access with escalating dose of vasopressors. Labs were also obtained from this line to include lactate and VB G. She was noted to be with mixed respiratory and metabolic acidosis, she will be brought to the ICU on BIPAP/CPAP, will place arterial line as well, re- evaluate acid base status and intubate if no improvement. Family was updated by phone via the admitting team in the ER, and I spoke to the on arrival to the ICU. Verbal consent was given for intubation as well as arterial line placement at this time. CODE: FULL Allergies Allergy/AdvReac Type Severity Reaction Status Date / Time bee venom protein (honey bee) Allergy Severe DIFFICULTY Verified 10/13/24 11:32 BREATHING/HIVES/ITCHY Home Medications Medication Instructions Recorded Confirmed Type aspirin 81 mg tablet,delayed 81 mg PO DAILY 07/06/20 10/21/24 History release (Adult Low Dose Aspirin) blood sugar diagnostic (OneTouch #100 ea 04/26/23 10/13/24 Rx Verio test strips) lancets 33 gauge (OneTouch Delica #100 ea 04/26/23 10/13/24 Rx Plus Lancet) pen needle, diabetic 32 gauge x #100 ea 04/26/23 10/13/24 Rx 5/32" (Pen Needle) spironolactone 100 mg tablet 50 mg (1/2 x 100 mg) PO QAM #30 04/26/23 10/21/24 Rx tabs pramipexole 0.25 mg tablet 0.5 mg PO BID 04/19/24 10/21/24 History isosorbide mononitrate 30 mg 30 mg PO QAM 08/10/24 10/21/24 History tablet,extended release 24 hr metoprolol succinate 200 mg 200 mg PO QAM 08/10/24 10/21/24 History tablet,extended release 24 hr acetaminophen 325 mg tablet 650 mg (2 x 325 mg) PO Q4H PRN #0 08/13/24 10/21/24 Rx tabs rosuvastatin 20 mg tablet 20 mg PO QAM #90 tabs 09/26/24 10/21/24 Rx clopidogrel 75 mg tablet (Plavix) 75 mg PO DAILY #90 tabs 10/07/24 10/21/24 Rx cephalexin 500 mg capsule 500 mg PO BID 7 days #14 caps 10/21/24 10/21/24 Rx insulin glargine 100 unit/mL 18 unit subcut UD 10/21/24 10/21/24 History subcutaneous solution (Lantus U-100 Insulin) oxybutynin chloride 10 mg 10 mg PO DAILY 10/21/24 10/21/24 History tablet,extended release 24 hr solifenacin 10 mg tablet 10 mg PO DAILY 10/21/24 10/21/24 History Patient History Medical History Acute UTI Surgical History History of lumbar surgery L4-5 discectomy Social History Smoking Status: Former smoker Tobacco Type: Cigarettes Smoking End Date: unknown; Hx Alcohol Use: No Hx Substance Use: No Preferred Language: Swedish Communication Ability: AMS Visual Impairment: Limited Hearing Ability: Hard of Hearing Stage Settings Painter Required: No Beliefs That Will Affect Care: None marital status: Current Living Situation: Spouse current occupational status: retired Feels Safe at Home: Yes Assistive Devices: None Review of Systems Review of Systems: unable to obtain secondary to encephalopathy/obtundation Physical Exam Physical Exam: PHYSICAL EXAM: General: obtunded, moaning, Head: Normocephalic, atraumatic ENT: PERRLA, suggish, Mucous membranes dry. Neuro: AAO x1, speach unintelligible, moving all extremities, localizes pain, follows minimal instructions, oriented to person Chest: equal rise and fall of the chest, abdominal breathing, decreased in bases bilaterally Cardiac: Regular rate and rhythm, telemetry reviewed- NSR to sinus tachycardia, skin warm dry, cap refill >3 seconds, peripheral pusles +2 no JVD, no murmur, nailbeds dusky to hands and toes bilaterally GI: NABS x 4 quadrants, soft, nontender to palpation, no rebound, guarding or tenderness : Chi to gravity draining gene colored urine Results & Data Results & Data Vital Signs (Past 12 Hours) Vital Signs Temp Pulse Pulse Resp BP BP Pulse Ox 10/22/24 00:02 107 H 18 81/60 L 95 10/21/24 23:57 105 H 20 95 10/21/24 23:48 104 H 22 99/66 L 94 10/21/24 23:38 94/59 L 10/21/24 23:33 109 H 20 73 L 10/21/24 23:21 106 H 21 10/21/24 23:20 82/59 L 10/21/24 23:15 105/73 10/21/24 23:15 107 H 19 10/21/24 23:10 103/74 10/21/24 23:09 108 H 21 10/21/24 23:07 95/68 L 10/21/24 23:03 137/111 H 10/21/24 23:00 82/60 L 10/21/24 23:00 82/60 L 10/21/24 23:00 100 H 15 10/21/24 22:55 69/51 L 10/21/24 22:55 69/51 L 10/21/24 22:50 78/61 L 10/21/24 22:45 95 H 16 79 L 10/21/24 22:45 77/46 L 10/21/24 22:39 97 H 17 10/21/24 22:38 54/34 L 10/21/24 22:34 63/44 L 10/21/24 22:30 66/40 L 10/21/24 22:27 76/43 L 10/21/24 22:25 62/41 L 10/21/24 22:21 98 H 17 10/21/24 22:18 62/40 L 10/21/24 22:18 62/40 L 10/21/24 22:14 62/43 L 10/21/24 22:13 64/42 L 10/21/24 22:03 103 H 15 10/21/24 22:02 87/56 L 10/21/24 22:02 87/56 L 10/21/24 22:01 69/53 L 10/21/24 21:57 114 H 19 10/21/24 21:51 112 H 14 10/21/24 21:41 107 H 10/21/24 21:30 108 H 16 10/21/24 21:24 111 H 9 L 10/21/24 21:00 111 H 14 97 10/21/24 20:42 112 H 14 95 10/21/24 20:30 118 H 13 10/21/24 20:18 113 H 15 97 10/21/24 20:00 93/64 L 10/21/24 19:30 120 H 14 100/64 94 10/21/24 19:03 122 H 19 93 10/21/24 19:00 117/63 10/21/24 18:09 139 H 24 202/116 H 94 10/21/24 18:09 10/21/24 18:09 37.6 C H 139 H 24 202/116 H 94 10/21/24 17:47 141 H 25 H 202/116 H 94 10/21/24 17:08 93 10/21/24 16:54 138 H 10/21/24 16:18 O2 Del Method O2 Flow Rate 10/22/24 00:02 Nasal Cannula 3 10/21/24 23:57 Nasal Cannula 2 10/21/24 23:48 Nasal Cannula 3 10/21/24 23:38 10/21/24 23:33 10/21/24 23:21 10/21/24 23:20 10/21/24 23:15 10/21/24 23:15 10/21/24 23:10 10/21/24 23:09 10/21/24 23:07 10/21/24 23:03 10/21/24 23:00 10/21/24 23:00 10/21/24 23:00 10/21/24 22:55 10/21/24 22:55 10/21/24 22:50 10/21/24 22:45 10/21/24 22:45 10/21/24 22:39 10/21/24 22:38 10/21/24 22:34 10/21/24 22:30 10/21/24 22:27 10/21/24 22:25 10/21/24 22:21 10/21/24 22:18 10/21/24 22:18 10/21/24 22:14 10/21/24 22:13 10/21/24 22:03 10/21/24 22:02 10/21/24 22:02 10/21/24 22:01 10/21/24 21:57 10/21/24 21:51 10/21/24 21:41 10/21/24 21:30 10/21/24 21:24 10/21/24 21:00 10/21/24 20:42 10/21/24 20:30 10/21/24 20:18 10/21/24 20:00 10/21/24 19:30 10/21/24 19:03 10/21/24 19:00 10/21/24 18:09 Room Air 10/21/24 18:09 Room Air 10/21/24 18:09 Room Air 10/21/24 17:47 Nasal Cannula 2 10/21/24 17:08 Room Air 10/21/24 16:54 10/21/24 16:18 Room Air Laboratory Results Abnormal lab results 10/21/24 10/21/24 10/21/24 Range/Units 17:00 18:31 18:37 RBC (4.20-5.40) M/uL Hgb (12.0-16.0) g/dl Hct (37.0-47.0) % RDW Coeff of Marshall (11.5-14.5) % Neut # (Auto) (1.40-6.50) K/uL Lymph # (Auto) (1.20-3.40) K/uL VBG pH (7.36-7.41) Chloride (98-107) mmol/L Carbon Dioxide (21-32) mmol/L BUN (6-23) mg/dl Creatinine (0.6-1.2) mg/dl Glucose (70-99(Fasting)) mg/dl POC Glucose 223 H (70-99) mg/dl Lactate 2.9 H* (0.4-2.0) mmol/L Calcium (8.6-10.3) mg/dl Total Creatine Kinase 342 H (26-192) U/L Troponin I High Sens 58.0 H* (0-14) pg/ml Total Protein (6.0-8.3) gm/dl Albumin (3.4-5.0) gm/dl Urine Opiates Screen (Neg) 10/21/24 10/21/24 10/21/24 Range/Units 18:51 20:35 22:08 RBC (4.20-5.40) M/uL Hgb (12.0-16.0) g/dl Hct (37.0-47.0) % RDW Coeff of Marshall (11.5-14.5) % Neut # (Auto) (1.40-6.50) K/uL Lymph # (Auto) (1.20-3.40) K/uL VBG pH (7.36-7.41) Chloride (98-107) mmol/L Carbon Dioxide (21-32) mmol/L BUN (6-23) mg/dl Creatinine (0.6-1.2) mg/dl Glucose (70-99(Fasting)) mg/dl POC Glucose (70-99) mg/dl Lactate 2.3 H* (0.4-2.0) mmol/L Calcium (8.6-10.3) mg/dl Total Creatine Kinase (26-192) U/L Troponin I High Sens 228.1 H* D (0-14) pg/ml Total Protein (6.0-8.3) gm/dl Albumin (3.4-5.0) gm/dl Urine Opiates Screen Pos H (Neg) 10/21/24 10/21/24 Range/Units 23:27 23:46 RBC 4.06 L (4.20-5.40) M/uL Hgb 11.1 L (12.0-16.0) g/dl Hct 33.4 L (37.0-47.0) % RDW Coeff of Marshall 15.2 H (11.5-14.5) % Neut # (Auto) 7.89 H (1.40-6.50) K/uL Lymph # (Auto) 0.46 L (1.20-3.40) K/uL VBG pH 7.16 L (7.36-7.41) Chloride 114 H (98-107) mmol/L Carbon Dioxide 18 L (21-32) mmol/L BUN 26 H (6-23) mg/dl Creatinine 1.45 H D (0.6-1.2) mg/dl Glucose 156 H (70-99(Fasting)) mg/dl POC Glucose (70-99) mg/dl Lactate 3.0 H* (0.4-2.0) mmol/L Calcium 7.7 L (8.6-10.3) mg/dl Total Creatine Kinase (26-192) U/L Troponin I High Sens (0-14) pg/ml Total Protein 4.7 L (6.0-8.3) gm/dl Albumin 2.9 L (3.4-5.0) gm/dl Urine Opiates Screen (Neg) Diagnostic Findings Head CT 10/21/24 17:07 CT head without contrast History: Seizure. AMS Comparison: None Technique: Using multidetector thin collimation helical acquisition technique, axial, coronal and sagittal CT images from the skull base to the vertex were obtained without intravenous contrast. Dose reduction techniques were achieved by using automatic exposure control and/or adjustment of mA and/or kV according to patient size and/or use of iterative reconstruction technique. Findings: No intracranial hemorrhage, mass-effect, or midline shift. The ventricles are proportionate to the cerebral sulci. The rasmussen to white matter differentiation of the cerebral hemispheres is preserved. The basal cisterns are patent. The visualized paranasal sinuses are clear. Mastoid air cells are clear. Impression: No acute intracranial pathology. Electronically signed by Carlos Enrique Esparza 10-21-2024 6:20 PM Chest X-Ray 10/21/24 18:36 Chest radiograph, one view History: Chest pain Comparison: 04/19/2024 Findings: Single AP view of the chest performed. No focal consolidation or pleural effusion. No pneumothorax. The cardiomediastinal silhouette is within normal limits. Normal pulmonary vascularity. No evidence for lymphadenopathy. No visualized bony or soft tissue abnormality. There are resuscitation pads over the chest. Impression: Normal chest radiograph Electronically signed by Carlos Enrique Esparza 10-21-2024 7:23 PM Abdomen/Pelvis CT 10/21/24 20:58 Exam(s): CT ABDOMEN + PELVIS W/WO Contrast IV Amt: 90 ml opti 320 EXAM: CT Abdomen and Pelvis Without and With Intravenous Contrast CLINICAL HISTORY: Reason for exam: Elevated lactate, UTI. TECHNIQUE: Axial computed tomography images of the abdomen and pelvis without and with intravenous contrast. CTDI is 56.01 mGy and DLP is 2705.59 mGy-cm. Automated exposure control was utilized for the study. A dose lowering technique was utilized adhering to the principles of ALARA. CONTRAST: Patient received 90 ml opti 320 of IV contrast COMPARISON: CT abdomen/pelvis on 08/10/2024 FINDINGS: Lung bases: Lower lung atelectasis. ABDOMEN: Liver: Hepatic steatosis. Hepatomegaly. Gallbladder and bile ducts: Unremarkable. No calcified stones. No ductal dilation. Pancreas: Unremarkable. No mass. No ductal dilation. Spleen: Borderline size of the spleen. Adrenals: Unremarkable. No mass. Kidneys and ureters: Nonspecific bilateral perinephric fat stranding. Mild bilateral hydroureteronephrosis without obstructing stone identified. Findings may be secondary to infection. Stomach and bowel: Evaluation of the stomach is limited by under distention. No mucosal thickening. PELVIS: Appendix: Normal appendix. Bladder: Bladder wall thickening and surrounding fat stranding, concerning for cystitis. Please correlate with urinalysis. No stones. Reproductive: Uterine fibroids. ABDOMEN and PELVIS: Intraperitoneal space: Unremarkable. No free air. No significant fluid collection. Bones/joints: Curvature of the spine. Degenerative changes of the spine. Grade 1 anterolisthesis of L3 on L4. No acute fracture. No dislocation. Soft tissues: Small fat-containing umbilical hernia. Vasculature: Atherosclerotic changes of the vasculature. No abdominal aortic aneurysm or dissection. Phleboliths in the pelvis. Lymph nodes: Unremarkable. No enlarged lymph nodes. IMPRESSION: 1. Nonspecific bilateral perinephric fat stranding. Mild bilateral hydroureteronephrosis without obstructing stone identified. Findings may be secondary to infection. 2. Bladder wall thickening and surrounding fat stranding, concerning for cystitis. Please correlate with urinalysis. 3. Hepatic steatosis. Hepatomegaly. Electronically signed by: Stephanie Lynn M.D. 10/21/24 21:50 PM Medications Administered Home Medications aspirin 81 mg tablet,delayed release (Adult Low Dose Aspirin) 81 mg PO DAILY 07/06/20 [History Confirmed 10/21/24] blood sugar diagnostic ([employer] Verio test strips) #100 ea 04/26/23 [Rx Confirmed 10/13/24] lancets 33 gauge (ViewabillTouch Delica Plus Lancet) #100 ea 04/26/23 [Rx Confirmed 10/13/24] pen needle, diabetic 32 gauge x 5/32" (Pen Needle) #100 ea 04/26/23 [Rx Confirmed 10/13/24] spironolactone 100 mg tablet 50 mg (1/2 x 100 mg) PO QAM #30 tabs 04/26/23 [Rx Confirmed 10/21/24] pramipexole 0.25 mg tablet 0.5 mg PO BID 04/19/24 [History Confirmed 10/21/24] isosorbide mononitrate 30 mg tablet,extended release 24 hr 30 mg PO QAM 08/10/24 [History Confirmed 10/21/24] metoprolol succinate 200 mg tablet,extended release 24 hr 200 mg PO QAM 08/10/24 [History Confirmed 10/21/24] acetaminophen 325 mg tablet 650 mg (2 x 325 mg) PO Q4H PRN #0 tabs 08/13/24 [Rx Confirmed 10/21/24] rosuvastatin 20 mg tablet 20 mg PO QAM #90 tabs 09/26/24 [Rx Confirmed 10/21/24] clopidogrel 75 mg tablet (Plavix) 75 mg PO DAILY #90 tabs 10/07/24 [Rx Confirmed 10/21/24] cephalexin 500 mg capsule 500 mg PO BID 7 days #14 caps 10/21/24 [Rx Confirmed 10/21/24] insulin glargine 100 unit/mL subcutaneous solution (Lantus U-100 Insulin) 18 unit subcut UD 10/21/24 [History Confirmed 10/21/24] oxybutynin chloride 10 mg tablet,extended release 24 hr 10 mg PO DAILY 10/21/24 [History Confirmed 10/21/24] solifenacin 10 mg tablet 10 mg PO DAILY 10/21/24 [History Confirmed 10/21/24] Active Medications Acetaminophen (Acetaminophen 325 Mg Tab) 650 mg PO Q4H PRN PRN Reason: Pain or Fever Stop: 11/20/24 22:04 Aspirin (Aspirin 81 Mg Ectab) 81 mg PO DAILY [facility] Stop: 11/21/24 08:59 Clopidogrel Bisulfate (Clopidogrel Bisulfate 75 Mg Tab) 75 mg PO DAILY OLE Stop: 11/21/24 08:59 Dextrose (Dextrose 50% 50 Ml Syringe) 25 - 50 ml IV UD PRN; Protocol PRN Reason: Hypoglycemia Protocol Stop: 11/20/24 22:04 Glucagon (Glucagon For Inj 1 Mg Vial) 1 mg SQ UD PRN; Protocol PRN Reason: Hypoglycemia Protocol Stop: 11/20/24 22:04 Glucose (Glucose 40% Gel 15 Gm Tube) 15 - 30 gm PO UD PRN; Protocol PRN Reason: Hypoglycemia Protocol Stop: 11/20/24 22:04 Glucose (Glucose 10 Tab/Tube) 4 - 8 tab PO UD PRN; Protocol PRN Reason: Hypoglycemia Protocol Stop: 11/20/24 22:04 Norepinephrine Bitartrate (Levophed/D5w) 4 mg in 250 mls @ 17.231 mls/hr IV .[id number] [facility]; Protocol Stop: 11/20/24 22:59 Last Admin: 10/21/24 23:34 Dose: 0.05 mcg/kg/min, 17.2 mls/hr Piperacillin Sod/Tazobactam Sod (Zosyn) 4.5 gm in 100 mls @ 25 mls/hr IV Q8H [facility]; Protocol Stop: 10/29/24 05:59 Piperacillin Sod/Tazobactam Sod (Zosyn) 4.5 gm in 100 mls @ 200 mls/hr IV ONE ONE; Protocol Stop: 10/22/24 01:29 Insulin Aspart (Insulin Aspart Per Unit Charge) 0 units SC ACHS [facility] Stop: 11/20/24 22:04 Last Admin: 10/22/24 00:59 Dose: Not Given Insulin Aspart (Insulin Aspart Per Unit Charge) 0 units SC 0400 [facility] Stop: 10/22/24 04:01 Insulin Glargine (Lantus Per Unit Charge) 18 units SQ DAILY [facility] Stop: 11/21/24 08:59 Ketorolac Tromethamine (Ketorolac Tromethamine 15 Mg/Ml Vial) 15 mg IV Q6H PRN PRN Reason: Pain & Pre PT Stop: 10/26/24 22:04 Miscellaneous (Carbohydrates For Hypoglycemia ) 15 - 30 gm PO UD PRN PRN Reason: Hypoglycemia Protocol Stop: 11/20/24 22:04 Miscellaneous Information (Pharmacy Glycemic Mgmt Consult) 1 each N/A UD PRN PRN Reason: Consult Stop: 11/20/24 22:04 Oxybutynin Chloride (Oxybutynin Chloride Xl 5 Mg Tabcr) 10 mg PO DAILY [facility] Stop: 11/21/24 08:59 Pramipexole Dihydrochloride (Pramipexole Dihydrochlo 0.5 Mg Tab) 0.5 mg PO BID [facility] Stop: 11/20/24 22:04 Last Admin: 10/21/24 22:31 Dose: Not Given Rosuvastatin Calcium (Rosuvastatin Calcium 20 Mg Tab) 20 mg PO QAM [facility] Stop: 11/21/24 08:59 Norepinephrine Bitartrate (Levophed/D5w) 4 mg in 250 mls @ 17.231 mls/hr IV .[id number] [facility]; Protocol Stop: 11/20/24 22:59 Last Admin: 10/21/24 23:34 Dose: 0.05 mcg/kg/min, 17.2 mls/hr Documented By: MANOJ Co-signed By: MARIA Insulin Aspart (Insulin Aspart Per Unit Charge) 0 units SC ACHS [facility] Stop: 11/20/24 22:04 Last Admin: 10/22/24 00:59 Dose: Not Given Documented By: FRANCISCA Pramipexole Dihydrochloride (Pramipexole Dihydrochlo 0.5 Mg Tab) 0.5 mg PO BID [facility] Stop: 11/20/24 22:04 Last Admin: 10/21/24 22:31 Dose: Not Given Documented By: MANOJ Discontinued Medications Albumin Human (Albumin Human 5% 12.5 Gm/250 Ml Vial) Confirm Administered Dose 12.5 gm IV .STK-MED ONE Stop: 10/21/24 23:52 Last Admin: 10/21/24 23:56 Dose: Not Given Documented By: MARIA Sodium Chloride (Nss) 1,000 mls @ 999 mls/hr IV .Q1H1M ONE Stop: 10/21/24 18:07 Last Infusion: 10/21/24 18:47 Dose: Infused Documented By: Admin: 10/21/24 17:43 Dose: 999 mls/hr Documented By: FLORA Acetaminophen (Ofirmev) 1,000 mg in 100 mls @ 400 mls/hr IV NOW STA Stop: 10/21/24 17:54 Last Infusion: 10/21/24 18:46 Dose: Infused Documented By: Admin: 10/21/24 17:45 Dose: 400 mls/hr Documented By: FLORA Sodium Chloride (Nss) 500 mls @ 999 mls/hr IV .Q31M ONE Stop: 10/21/24 18:48 Last Infusion: 10/21/24 20:13 Dose: Infused Documented By: Admin: 10/21/24 19:19 Dose: 999 mls/hr Documented By: MANOJ Sodium Chloride (Nss) 500 mls @ 999 mls/hr IV .Q31M ONE Stop: 10/21/24 19:06 Last Infusion: 10/21/24 20:13 Dose: Infused Documented By: Admin: 10/21/24 19:19 Dose: 999 mls/hr Documented By: MANOJ Sodium Chloride (Nss) 1,000 mls @ 999 mls/hr IV .Q1H1M OLE Stop: 10/21/24 22:52 Last Infusion: 10/21/24 23:34 Dose: Infused Documented By: Admin: 10/21/24 22:13 Dose: 999 mls/hr Documented By: MANOJ Lactated Ringer's (Lr) 1,000 mls @ 999 mls/hr IV .Q1H1M OLE Stop: 10/22/24 00:00 Last Infusion: 10/21/24 23:33 Dose: Infused Documented By: Admin: 10/21/24 23:06 Dose: 999 mls/hr Documented By: MANOJ Albumin Human (Albumin 5%) 250 mls @ 500 mls/hr IV ONE ONE Stop: 10/22/24 00:19 Last Infusion: 10/22/24 01:00 Dose: Infused Documented By: Admin: 10/21/24 23:57 Dose: 500 mls/hr Documented By: MARIA Acetaminophen (Ofirmev) 1,000 mg in 100 mls @ 400 mls/hr IV NOW STA Stop: 10/22/24 01:00 Last Admin: 10/22/24 00:57 Dose: 400 mls/hr Documented By: FRANCISCA Ioversol (Optiray 320 100ml) 90 ml IV ONCE ONE Stop: 10/21/24 21:18 Last Admin: 10/21/24 21:17 Dose: 90 ml Documented By: MARILYN Ketorolac Tromethamine (Ketorolac Tromethamine 15 Mg/Ml Vial) 10 mg IV NOW ONE Stop: 10/21/24 17:41 Last Admin: 10/21/24 17:44 Dose: 10 mg Documented By: FLORA Levetiracetam (Levetiracetam 500 Mg/5 Ml Vial) 2,000 mg IV NOW STA Stop: 10/21/24 17:08 Last Admin: 10/21/24 17:43 Dose: 2,000 mg Documented By: GIRISH Lorazepam (Lorazepam 1 Mg/1 Ml Syr Ed Inj Use) 1 mg IV ONE STA Stop: 10/21/24 17:08 Last Admin: 10/21/24 17:54 Dose: Not Given Documented By: FLORA Lorazepam (Lorazepam 1 Mg/1 Ml Syr Ed Inj Use) 1 mg IM ONE STA Stop: 10/21/24 17:13 Last Admin: 10/21/24 17:14 Dose: 1 mg Documented By: FLORA Lorazepam (Lorazepam 1 Mg/1 Ml Syr Ed Inj Use) 0.5 mg IV ONE STA Stop: 10/21/24 17:41 Last Admin: 10/21/24 17:46 Dose: 0.5 mg Documented By: FLORA Morphine Sulfate (Morphine Sulfate 2 Mg/Ml Carp) 2 mg IV NOW STA Stop: 10/21/24 17:08 Last Admin: 10/21/24 17:55 Dose: Not Given Documented By: FLORA Morphine Sulfate (Morphine Sulfate 2 Mg/Ml Carp) 2 mg IM NOW STA Stop: 10/21/24 17:13 Last Admin: 10/21/24 17:14 Dose: 2 mg Documented By: FLORA Morphine Sulfate (Morphine Sulfate 4 Mg/Ml 1 Ml Carp\\Vial) 4 mg IM NOW STA Stop: 10/21/24 17:25 Last Admin: 10/21/24 17:28 Dose: 4 mg Documented By: FLORA Naloxone HCl (Naloxone Hcl 0.4 Mg/1 Ml Vial/Carp) 0.4 mg IV NOW STA Stop: 10/21/24 22:57 Last Admin: 10/21/24 23:06 Dose: 0.4 mg Documented By: MANOJ Naloxone HCl (Naloxone Hcl 0.4 Mg/1 Ml Vial/Carp) Confirm Administered Dose 0.4 mg .ROUTE .STK-MED ONE Stop: 10/21/24 23:00 Last Admin: 10/21/24 23:04 Dose: Not Given Documented By: MANOJ Naloxone HCl (Naloxone Hcl 0.4 Mg/1 Ml Vial/Carp) 0.4 mg IV NOW STA Stop: 10/21/24 23:23 Last Admin: 10/21/24 23:33 Dose: 0.4 mg Documented By: MANOJ Norepinephrine Bitartrate (Norepinephrine/D5w 4 Mg/250 Ml) Confirm Administered Dose 4 mg IV .STK-MED ONE Stop: 10/21/24 22:58 Last Admin: 10/21/24 23:05 Dose: Not Given Documented By: MANOJ Ondansetron HCl (Ondansetron Inj 2 Mg/Ml 2 Ml Vial) 4 mg IV NOW STA Stop: 10/21/24 17:08 Last Admin: 10/21/24 17:55 Dose: Not Given Documented By: FLORA Ondansetron HCl (Ondansetron 4 Mg Od Tab) 4 mg PO NOW STA Stop: 10/21/24 17:13 Last Admin: 10/21/24 17:17 Dose: 4 mg Documented By: FLORA Coding Level of Care Code 62504 CRITICAL CARE 1ST 30-74M Diagnoses Seizure-like activity R56.9 Pyelonephritis N12 Septic shock A41.9; R65.21 Encephalopathy G93.40 Lumbar stenosis with neurogenic claudication M48.062 CHF (congestive heart failure) I50.9 HTN (hypertension) I10 Hypertension type: unspecified Hypercholesteremia E78.00 (7) HTN (hypertension) Hypertension type: unspecified Qualified Code(s): I10 - Essential (primary) hypertension
[2024-10-22 00:23] LABS: Hematocrit (blood only) 33.4 % (37.0-47.0); Hemoglobin 11.1 g/dl (12.0-16.0); Mean Corpuscular Hemoglobin 27.3 pg (25.0-34.0); Mean Corpuscular Hgb Conc 33.2 g/dL (32.0-36.0); Mean Corpuscular Volume 82.3 fL (80.0-100.0); Mean Platelet Volume 10.4 fL (9.4-12.4); Platelet Count 193 K/uL (130-400); RDW Coefficient of Variation 15.2 % (11.5-14.5); RDW Standard Deviation 45.8 fL (36.4-46.3); Red Blood Count 4.06 M/uL (4.20-5.40); White Blood Count 8.75 K/ul (4.8-10.8)
[2024-10-22 00:35] LABS: Basophils # (auto) 0.03 K/uL (0.00-0.20); Basophils % (auto) 0.3 %; Dohle Bodies 1+; Immature Granulocytes # (auto) 0.05 K/uL (0.01-0.20); Immature Granulocytes % (auto) 0.6 %; Lymphocytes # (auto) 0.46 K/uL (1.20-3.40); Lymphocytes % (auto) 5.3 %; Monocytes # (auto) 0.32 K/uL (0.11-0.59); Monocytes % (auto) 3.7 %; Neutrophils # (auto) 7.89 K/uL (1.40-6.50); Neutrophils % (auto) 90.1 %; Polychromasia 1+; Toxic Vacuolation 1+
[2024-10-22 00:38] LABS: Alanine Aminotransferase 34 U/L (7-52); Albumin Level 2.9 gm/dl (3.4-5.0); Alkaline Phosphatase 63 U/L (34-104); Anion Gap 8 (3-11); Aspartate Aminotransferase 32 U/L (13-39); BUN Creatinine Ratio 17.9 (10-20); Bilirubin,Total 0.6 mg/dl (0.2-1.0); Blood Urea Nitrogen 26 mg/dl (6-23); Calcium 7.7 mg/dl (8.6-10.3); Carbon Dioxide 18 mmol/L (21-32); Chloride 114 mmol/L (98-107); Creatinine Clr Calc Pharmacy 43.6 ml/min; Glucose 156 mg/dl (70-99(Fasting)); Potassium 4.3 mmol/L (3.5-5.1); Sodium 140 mmol/L (136-145); Total Protein 4.7 gm/dl (6.0-8.3)
--- NOTE | 2024-10-22 00:46 | Procedure Note ---
Procedure Note Date of Service October 22, 2024 Procedure: Arterial Line Placement Proceduralist: Akash ALLEN ([facility]) Attending: Dr. Amaral Indication: Monitoring on Pressors Anesthesia: [x]Lidocaine 1% Phone Consent was obtained over phone from as delegated to me by Dr. Amaral, Indication, risks, and benefits were explained at length. A time-out was completed verifying correct patient, procedure, site, positioning, and implant(s) or special equipment if applicable. Allens test was performed to ensure adequate perfusion. Patients LEFT wrist was prepped and draped in the usual sterile fashion. Ultrasound guidance was used to aid needle placement. A 20g Arrow arterial line was introduced into the LEFT RADIAL artery, brisk flash of blood was noted, the wire was advanced without resistance and the catheter was threaded without resistance. The needle was removed with appropriate blood return and attached to pressure tubing noting a good arterial waveform. The patient tolerated the procedure well. Blood Loss: Minimal Complications: None immediate Artery Identified: YES Complications: NONE Patient tolerated procedure: [facility] [place] Procedure Codes (Charges) Tubes, Drains, and Vasc Access Procedure 2: Tubes, Drains, and Vasc Access: [id number] Arterial Cath/Cannulation Sampling/Monitoring/Transfusion Coding CPT Codes Tubes, Drains, and Vasc Access - Tubes, Drains, and Vasc Access: [id number] Arterial Cath/Cannulation Sampling/Monitoring/Transfusion ([id number]) Additional Codes Date of Service ([facility].SURGERY)
[2024-10-22] MEDS: ACETAMINOPHEN 1,000 MG/100 ML VIAL IV STA (00:57)
[2024-10-22] MEDS: INSULIN ASPART PER UNIT CHARGE SC SCH ×2 (00:59→04:40)
[2024-10-22] MEDS: PIPERACILLIN/TAZOBACTAM 4.5 GM/100 ML BAG IV ONE (01:12)
[2024-10-22 01:18] LABS: Troponin I High Sensitivity 317.8 pg/ml (0-14)
[2024-10-22 01:20] LABS: iSTAT Art Bld Gas pCO2 Correct 38 mmHg (35-46); iSTAT Art Bld Gas pH Corrected 7.293 (7.35-7.45); iSTAT Arterial Blood Gas HCO3 18 meg/L (19-24); iSTAT Arterial Blood Gas pCO2 36 mmHg (35-46); iSTAT Arterial Blood Gas pH 7.31 (7.35-7.45); iSTAT Arterial Blood Gas pO2 133 mmHg (80-95); iSTAT Arterial Blood Gas pO2 C 140; iSTAT Carbon Dioxide 19 mmol/L (24-31); iSTAT FiO2 40 %; iSTAT Hematocrit 33 % (37-47); iSTAT Hemoglobin 11.2 g/dl (12.0-16.0); iSTAT Potassium 4.3 mmol/L (3.3-5.0); iSTAT Sample Type Arterial; iSTAT Site Art Line; iSTAT Sodium 140 mmol/L (135-144); iSTAT SpO2 100
[2024-10-22] MEDS ORDERED: INSULIN ASPART PER UNIT CHARGE SC SCH ×2 (02:00)
[2024-10-22 02:16] LABS: Influenza A virus by PCR Negative (Neg); Influenza B virus by PCR Negative (Neg); RSV by PCR Negative (Neg); SARS CoV2 RNA(COVID-19) Ceph NEGATIVE (Negative)
[2024-10-22] MEDS: GADOBUTROL 65ML VIAL IV ONE (03:44)
[2024-10-22] MEDS: PLASMA-LYTE A 1,000 ML IV SCH (03:56)
[2024-10-22 04:47] LABS: iSTAT Art Bld Gas pCO2 Correct 41 mmHg (35-46); iSTAT Art Bld Gas pH Corrected 7.275 (7.35-7.45); iSTAT Arterial Blood Gas HCO3 19 meg/L (19-24); iSTAT Arterial Blood Gas pCO2 39 mmHg (35-46); iSTAT Arterial Blood Gas pH 7.29 (7.35-7.45); iSTAT Arterial Blood Gas pO2 137 mmHg (80-95); iSTAT Arterial Blood Gas pO2 C 144; iSTAT Carbon Dioxide 20 mmol/L (24-31); iSTAT FiO2 40 %; iSTAT Hematocrit 32 % (37-47); iSTAT Hemoglobin 10.9 g/dl (12.0-16.0); iSTAT Potassium 4.2 mmol/L (3.3-5.0); iSTAT Sample Type Arterial; iSTAT Site Art Line; iSTAT Sodium 139 mmol/L (135-144); iSTAT SpO2 94
[2024-10-22] MEDS: PIPERACILLIN/TAZOBACTAM 4.5 GM/100 ML BAG IV SCH (04:52)
--- NOTE | 2024-10-22 05:06 | Magnetic Resonance Report ---
EXAM: MR brain seizure wo/w con CLINICAL HISTORY: possible new onset seizure on 10/21. patient unable to cooperate. moved throughout study. kept moving out of head coil. bests cans possible at this time. TECHNIQUE: MRI of the brain was performed with and without 9cc gadavist intravenous contrast administration. Sequences obtained include pre-contrast and post-contrast T1-weighted, T2-weighted, FLAIR (Fluid-Attenuated Inversion Recovery), DWI (Diffusion-Weighted Imaging), and ADC (Apparent Diffusion Coefficient) sequences. COMPARISON: prior 10/21/2024. FINDINGS: Brain Parenchyma: The examination is partly degraded by the patient's motion artifacts. No evidence of acute infarction or hemorrhage. Few foci and small areas of an altered signal are seen involving the bilateral fronto-parietal subcortical and periventricular white matter, eliciting high T2/FLAIR signal intensities, while inconspicuous on T1 WIS, no perifocal edema or mass effect. no corresponding diffusion restriction denoting chronicity. Bilateral deep white matter periventricular thin sheets of bright T2 and FLAIR signal are seen denoting small arterial disease. No masses. Post-Contrast Findings: No abnormal enhancement of the brain parenchyma or meninges. Ventricles and Sulci: The ventricular system is within normal limits without evidence of hydrocephalus. Accentuated cortical sulci, Sylvian fissures, and extra-axial CSF spaces. Brainstem and Cerebellum: Normal appearance of the brainstem and cerebellum without focal lesions or abnormal enhancement. Vessels: Intracranial vessels appear normal without evidence of vascular malformations or aneurysms. Skull and Calvarium: No evidence of skull vault lesions or abnormal marrow signals within the calvarium. IMPRESSION: Motion artifacts degrade the image quality. 1. No hyperacute or acute infarction could be depicted. 2. Mild chronic microvascular ischemic angiopathy 3. Mild age-related brain involuational changes. 4. No abnormal enhancement of the brain parenchyma or meninges. 5. No significant interval changes. Electronically signed by Jack Damico 10-22-2024 05:05 AM
[2024-10-22 05:07] LABS: Hematocrit (blood only) 31.1 % (37.0-47.0); Hemoglobin 10.3 g/dl (12.0-16.0); Mean Corpuscular Hemoglobin 26.9 pg (25.0-34.0); Mean Corpuscular Hgb Conc 33.1 g/dL (32.0-36.0); Mean Corpuscular Volume 81.2 fL (80.0-100.0); Mean Platelet Volume 10.2 fL (9.4-12.4); Platelet Count 165 K/uL (130-400); RDW Coefficient of Variation 15.5 % (11.5-14.5); RDW Standard Deviation 45.7 fL (36.4-46.3); Red Blood Count 3.83 M/uL (4.20-5.40); White Blood Count 10.34 K/ul (4.8-10.8)
[2024-10-22 05:15] LABS: BUN Creatinine Ratio 20.7 (10-20); Calcium 6.6 mg/dl (8.6-10.3); Creatinine Clr Calc Pharmacy 56.9 ml/min; Magnesium 1.2 mg/dl (1.7-2.4); Phosphorus 3.4 mg/dl (2.5-4.9); Potassium 3.7 mmol/L (3.5-5.1)
[2024-10-22] MEDS: MAGNESIUM SULFATE / D5W 1 GM/100 ML BAG IV SCH (06:01)
[2024-10-22] MEDS: PRAMIPEXOLE DIHYDROCHLO 0.5 MG TAB PO STA (06:38)
--- NOTE | 2024-10-22 07:25 | Critical Care Progress Note ---
Date of Service October 22, 2024 Assessment & Plan (1) Seizure-like activity: (2) Pyelonephritis: (3) Septic shock: (4) Encephalopathy: (5) Lumbar stenosis with neurogenic claudication: (6) CHF (congestive heart failure): (7) HTN (hypertension): (8) Hypercholesteremia: Plan Reason Critically Ill: 68yo female brought back to the ER for possible seizure like activity in setting of UTI, encephalopathic, acidotic, hypotensive requiring vasopressors. Neuro - Encephalopathy, possible seizure-like activity, hx lumbar stenosis with radicular symptoms CAM ICU: [facility]AJ - Possible rigors in setting of pyelonephritis/septic shock vs seizure like activity vs. rigors vs. other - head CT negative on arrival for LVO, hemorrhage, or mass - prior CT neck from March 2024 showing severe R IJV stenosis, seen again b/l on doppler study today 10/22/24: extensive atherosclerotic plaque within proximal b/l ICAs, 50-69% on US of prox PETTY but likely underestimated based on March 2024 CTA: "Atherosclerotic plaque and calcifications of the right carotid bulb and proximal ICA. Causes focal severe stenosis for a 3 mm segment." - Sedation with versed, precedex, and haldol for agitation afternoon 10/22/24, MAP persisting >65 in evening -> reordered norepinephrine for support - Once stabilized from acid base status, respiratory status, and hemodynamics obtain MRI with and without contrast- eval for CVA, any parenchymal involvement suggestive of encephalitis - EEG performed: "Mildly abnormal study due to diffuse slowing at times, suggestive of global cortical dysfunction in setting of Encephalopathy. Not in status epilepticus. No epileptic discharges seen." - Keppra- loaded in ER with 2g- hold on followup dose at this time- consider if needed 500-1000 mg IV BID - Encephalopathy more likely in setting of severe septic shock due to complica desmond UTI, however possible as above - May also have component of hypercarbia in setting of obstruction with encephalopathy - Consider LP if remains elusive Cardiac - Shock- septic likely urosepsis, Elevated HsCTNI but downtrending, likely in setting of demand ischemia PMHx HTN, HFpEF, HLD, CAD, stents to LAD x3, proximal RCA, PDA, 2017 mid RCA- hold DAPT until evaluation for possible LP - Hypotensive mostly but slightly HTsive in later afternoon; tachycardic, downtrending lactate - Resuscitated with 4L IVF, volume responsiveness was reported, requiring vasopressors earlier in day but no longer requiring vasopressors as her MAP has been mainly >65, levophed reordered evening of 10/22/24 for sustained MAP<65 - Bedside POCUS with adequate squeeze of ventricles and septum, flattened IVC and hyperdynamic LV, no pericardial effusion- bolus infusing as above Respiratory - Respiratory failure- hypercarbic - Likely in setting of encephalopathy, worsening by sedative medications - Narcan as above administered with minimal effect and time of administration of these although IM is > 7 hours ago - CPAP/BIPAP with Back up rate at this time , 09/04 - expect improvement in her ABG- if no improvement will pursue intubation GI - No acute needs at this time - hx hepatic steatosis RENAL/LYTES - initially CARLIN on CKD but creatinine has since resolved to 1.11; electrolyte disturbances, mixed metabolic and respiratory acidosis - continue repleting magnesium and calcium - ICU electrolyte protocol - Bilateral hydroureteronephrosis with perinephric stranding in setting of UTI- likely pyelonephritis - Respiratory acidosis corrected with BiPAP - remains with mild metabolic acidosis- follow bicarb and pH - As above - Continue supportive care- no obstruction noted - Chi to gravity ENDO - DMII - ICU hyperglycemic protocol - TSH wnl HEME - No acute needs ID - Septic Shock- UTI complicated- pyelonephritis - UA with 4+ bacteria, showing Klebsiella pneumonia as with prior UTI - Continue Zosyn until sensitivities are known - Broaden if concern for P[employer]ACH[employer] infection changes or patient status worsens LINES/IV ACCESS - CVL Right femoral vein, A-line LT wrist, Chi Continue use of these lines DVT PROPHYLAXIS - SCDS, hold on chirography until decision on LP DISPO: ICU until hemodynamics and respiratory status are proven stable Admission and Anticipated Discharge Date Admission Date: October 21, 2024 Supervising Physician Co-Signing Physician Notes Dr. Lee was resident physician during care of patient. I separately evaluated patient for salcedo portions of the history and the exam. I was present during the critical portion of medical decision making, and I discussed the case with the resident. I generally agree with the findings and plan. Anticipate EEG later today. Concern for underlying sepsis not requiring vaso active medications will continue current antibiotics until there are sensitivities. Patient with known seizure disorder, has not had witnessed breakthrough seizures here, infection can certainly lower seizure threshold. Also complicating possible severe internal carotid stenosis. Troponins are downtrending, anticipate that this was type II ischemia in a patient with known cardiac disease. Mikie Snyder is a 68yo female with PMHx HTN, CVD, CAD, CHF, DM2, and RLS who presented to ED via EMS evening of 10/21/24 for seizure-like activity witnessed by pt's from outside of locked car. Patient was ultimately admitted to the ICU for urosepsis with vasopressor requirement to maintain MAP>65. In the ED patient received given IV ativan 1mg, morphine 2mg IM, and sublingual Zofran 4 mg. Later received 4 mg of IM morphine for pain. Once IV access was established she received 1.5L normal saline, another 0.5 mg of IV Ativan, another 2mg of IV morphine toradol, and tylenol for pain. Additionally received Keppra 2g IV. She initially came to the ER earlier in the day 10/21/24 since she had experienced full-body contractions the evening prior, which she had reported happened once prior in the last 6mos. Also noted some left lower extremity weakness which had been ongoing for some time. Was eventually diagnosed with UTI and discharged on Keflex. Upon review of prior notes and imaging, patient's CTA neck showed "severe stenosis" of R internal carotid artery, which went undocumented in subsequent notes. Admitted to the ICU for BP support with norepinephrine evening of 10/21/24. Physical Exam Physical Exam: Constitutional: lethargic with eyes closed, intermittent moaning, opens eyes slightly when addressed Head: NC/AT ENT: unable to assess EOM, pupils constricted and minimally reactive to light b/l; tongue with red horizontal superficial laceration 1cm posterior from tip, otherwise dry oral mucous membranes Neuro: speech unintelligible, moving all extremities slightly but not successfully on command; was not able to localize pain except for moaning with palpation of LUQ and tapping of L CVA Chest: decreased breath sounds in bases bilaterally, otherwise clear to auscultation Cardiac: tachycardic regular rhythm, no m/r/g heard on auscultation - skin warm and dry, cap refill >3 secon ds, 2+ carotid pulses, 2+ radial pulses, no JVD appreciated GI: hypoactive BS, abdomen soft, LUQ and L CVA tender to palpation, no rebound or guarding : Chi to gravity draining gene colored urine, 450cc in bag this AM Results & Data Results & Data Vital Signs (Past 12 Hours) Vital Signs Temp Pulse Pulse Resp BP BP Pulse Ox 10/22/24 06:15 126/76 10/22/24 06:15 122 H 13 92 10/22/24 06:00 123 H 23 93 10/22/24 06:00 121/61 10/22/24 06:00 121/61 10/22/24 06:00 12110/22/24 05:54 127 H 20 94 10/22/24 05:45 148/73 H 10/22/24 05:45 148/73 H 10/22/24 05:42 130 H 23 95 10/22/24 05:39 128 H 13 93 10/22/24 05:27 123 H 19 100 10/22/24 05:15 117 H 20 96 10/22/24 05:15 12110/22/24 05:15 121/10/22/24 05:12 117 H 13 98 10/22/24 05:09 110 H 16 98 10/22/24 05:01 159/125 H 10/22/24 05:01 159/125 H 10/22/24 04:45 131/74 10/22/24 04:45 131/74 10/22/24 04:45 131/74 10/22/24 04:45 103 H 27 H 99 10/22/24 04:39 98 H 18 93 10/22/24 04:24 96 H 19 93 10/22/24 04:15 125/71 10/22/24 04:15 125/71 10/22/24 04:09 97 H 24 94 10/22/24 04:00 101 H 19 93 10/22/24 04:00 121/67 10/22/24 04:00 121/10/22/24 03:51 106 H 18 89 L 10/22/24 03:50 120/75 10/22/24 02:33 37.3 C 91 H 20 96 10/22/24 02:30 98/55 L 10/22/24 02:15 97/56 L 10/22/24 02:00 86/52 L 10/22/24 02:00 86/52 L 10/22/24 01:51 37.7 C H 100 H 19 97 10/22/24 01:45 37.7 C H 99 H 20 97 10/22/24 01:45 98/56 L 10/22/24 01:45 98/56 L 10/22/24 01:45 98/56 L 10/22/24 01:42 37.8 C H 104 H 21 100 10/22/24 01:33 37.8 C H 104 H 24 92 10/22/24 01:30 107/60 10/22/24 01:30 107/60 10/22/24 01:21 37.9 C H 101 H 21 92 10/22/24 01:15 37.9 C H 102 H 22 92 10/22/24 01:15 94/60 L 10/22/24 01:15 94/60 L 10/22/24 01:12 38.0 C H 103 H 21 93 10/22/24 01:03 38.1 C H 102 H 22 87 L 10/22/24 01:02 38.0 C H 103 H 22 99/65 L 94 10/22/24 01:00 101/68 10/22/24 00:45 10/22/24 00:42 38.0 C H 108 H 20 94 10/22/24 00:30 90/50 L 10/22/24 00:30 90/50 L 10/22/24 00:30 90/50 L 10/22/24 00:30 38.0 C H 108 H 26 H 97 10/22/24 00:30 105 H 34 H 98 10/22/24 00:21 112 H 16 10/22/24 00:20 94/68 L 10/22/24 00:20 94/68 L 10/22/24 00:20 94/68 L 10/22/24 00:15 89 L 10/22/24 00:06 105 H 19 95 10/22/24 00:05 82/61 L 10/22/24 00:02 107 H 18 81/60 L 95 10/21/24 23:57 105 H 20 95 10/21/24 23:48 104 H 22 99/66 L 94 10/21/24 23:38 94/59 L 10/21/24 23:33 109 H 20 73 L 10/21/24 23:21 106 H 21 10/21/24 23:20 82/59 L 10/21/24 23:15 105/73 10/21/24 23:15 107 H 19 10/21/24 23:10 103/74 10/21/24 23:09 108 H 21 10/21/24 23:07 95/68 L 10/21/24 23:03 137/111 H 10/21/24 23:00 82/60 L 10/21/24 23:00 82/60 L 10/21/24 23:00 100 H 15 10/21/24 22:55 69/51 L 10/21/24 22:55 69/51 L 10/21/24 22:50 78/61 L 10/21/24 22:45 95 H 16 79 L 10/21/24 22:45 77/46 L 10/21/24 22:39 97 H 17 10/21/24 22:38 54/34 L 10/21/24 22:34 63/44 L 10/21/24 22:30 66/40 L 10/21/24 22:27 76/43 L 10/21/24 22:25 62/41 L 10/21/24 22:21 98 H 17 10/21/24 22:18 62/40 L 10/21/24 22:18 62/40 L 10/21/24 22:14 62/43 L 10/21/24 22:13 64/42 L 10/21/24 22:03 103 H 15 10/21/24 22:02 87/56 L 10/21/24 22:02 87/56 L 10/21/24 22:01 69/53 L 10/21/24 21:57 114 H 19 10/21/24 21:51 112 H 14 10/21/24 21:41 107 H 10/21/24 21:30 108 H 16 10/21/24 21:24 111 H 9 L 10/21/24 21:00 111 H 14 97 10/21/24 20:42 112 H 14 95 10/21/24 20:30 118 H 13 10/21/24 20:18 113 H 15 97 10/21/24 20:00 93/64 L 10/21/24 19:30 120 H 14 100/64 94 O2 Del Method O2 Flow Rate FiO2 10/22/24 06:15 10/22/24 06:15 10/22/24 06:00 10/22/24 06:00 10/22/24 06:00 10/22/24 06:00 10/22/24 05:54 10/22/24 05:45 10/22/24 05:45 10/22/24 05:42 10/22/24 05:39 10/22/24 05:27 10/22/24 05:15 10/22/24 05:15 10/22/24 05:15 10/22/24 05:12 10/22/24 05:09 10/22/24 05:01 10/22/24 05:01 10/22/24 04:45 10/22/24 04:45 10/22/24 04:45 10/22/24 04:45 30 10/22/24 04:39 10/22/24 04:24 10/22/24 04:15 10/22/24 04:15 10/22/24 04:09 10/22/24 04:00 10/22/24 04:00 10/22/24 04:00 10/22/24 03:51 10/22/24 03:50 10/22/24 02:33 10/22/24 02:30 10/22/24 02:15 10/22/24 02:00 10/22/24 02:00 10/22/24 01:51 10/22/24 01:45 10/22/24 01:45 10/22/24 01:45 10/22/24 01:45 10/22/24 01:42 10/22/24 01:33 10/22/24 01:30 10/22/24 01:30 10/22/24 01:21 10/22/24 01:15 10/22/24 01:15 10/22/24 01:15 10/22/24 01:12 10/22/24 01:03 10/22/24 01:02 BiPAP 10/22/24 01:00 10/22/24 00:45 BiPAP 40 10/22/24 00:42 10/22/24 00:30 10/22/24 00:30 10/22/24 00:30 10/22/24 00:30 10/22/24 00:30 40 10/22/24 00:21 10/22/24 00:20 10/22/24 00:20 10/22/24 00:20 10/22/24 00:15 10/22/24 00:06 10/22/24 00:05 10/22/24 00:02 Nasal Cannula 3 10/21/24 23:57 Nasal Cannula 2 10/21/24 23:48 Nasal Cannula 3 10/21/24 23:38 10/21/24 23:33 10/21/24 23:21 10/21/24 23:20 10/21/24 23:15 10/21/24 23:15 10/21/24 23:10 10/21/24 23:09 10/21/24 23:07 10/21/24 23:03 10/21/24 23:00 10/21/24 23:00 10/21/24 23:00 10/21/24 22:55 10/21/24 22:55 10/21/24 22:50 10/21/24 22:45 10/21/24 22:45 10/21/24 22:39 10/21/24 22:38 10/21/24 22:34 10/21/24 22:30 10/21/24 22:27 10/21/24 22:25 10/21/24 22:21 10/21/24 22:18 10/21/24 22:18 10/21/24 22:14 10/21/24 22:13 10/21/24 22:03 10/21/24 22:02 10/21/24 22:02 10/21/24 22:01 10/21/24 21:57 10/21/24 21:51 10/21/24 21:41 10/21/24 21:30 10/21/24 21:24 10/21/24 21:00 10/21/24 20:42 10/21/24 20:30 10/21/24 20:18 10/21/24 20:00 10/21/24 19:30 Diagnostic Findings carotid doppler study, 10/22/24 AM: "IMPRESSION: Extensive atherosclerotic plaque within the proximal bilateral internal carotid arteries. Sonographic findings suggest 50-69% stenosis of the proximal right internal carotid artery. However, when correlating with prior CTA, sonography is likely underestimating the degree of stenosis." CTA Neck, 04/19/24: Atherosclerotic plaque and calcifications of the right carotid bulb and proximal ICA. Causes focal severe stenosis for a 3 mm segment. Critical Care Time I have personally spent 40 minutes of critical care time in the direct management of this patient. This is a life/limb threatening event. This includes time spent evaluating patient, direct bedside care, chart review, placing orders, interpretation of diagnostic studies, discussion with consultants, patient, and/or family members regarding treatment decisions, as w ell as other required patient management activities. This time is exclusive of all separately billable procedures, and teaching time and separate from and in addition to any other critical care service time. Resident Activity Tracking Resident Involvement: Resident Care Provided Care Provided: Adult Hospital Medicine (7) HTN (hypertension) Hypertension type: unspecified Qualified Code(s): I10 - Essential (primary) hypertension
[2024-10-22] MEDS: LANTUS PER UNIT CHARGE SQ ONE (08:14)
[2024-10-22] MEDS: ROSUVASTATIN CALCIUM 20 MG TAB PO SCH (08:26)
[2024-10-22] MEDS: OXYBUTYNIN CHLORIDE XL 5 MG TABCR PO SCH (08:26)
--- NOTE | 2024-10-22 08:49 | Hospitalist Progress Note ---
Date of Service October 22, 2024 Assessment & Plan (1) Septic shock: (2) Seizure-like activity: (3) Acute UTI: (4) Carotid stenosis, right: Plan 68-year-old woman with recently diagnosed UTI, CHF, T2DM, HTN, hypercholesterolemia, CAD, and chronic leg/back pain presenting to ED via EMS for seizure-like activity and confusion, initially starting 0300 the day of arrival and worsening in severity throughout the day. Throughout the course of both ED visits the day of admission, patient did not have leukocytosis, no gross electrolyte abnormalities, but lactate was found to be 2.9, pending repeat, and initial troponin was 58.0, 228 on repeat, pending repeat. Prolactin was 6.45, TSH 1.918. CXR did not reveal acute findings, and head CT was also WNL. The patient's EKG was sinus tachycardia but otherwise WNL. While in the ED, patient received 2L NSS, Zofran, morphine, lorazepam, Keppra, ketorolac, acetaminophen. Became progressively hypotensive despite IV fluids, broad spectrum antibiotics and pressors were required, she required ICU care Septic shock probably caused by pyelonephritis - bilateral hydroureteronephrosis without stones and cystitis seen on CT A/P, dysuria, turbid UA Metabolic acidosis. Persists, lactic acid normalized 3-->1.6 CARLIN on CKD-3. Cr improved fom 1.45-->1.11 near baseline. Adequate UOP Myocardial demand ischemia due to septic shock - HS trop peaked at 317-->236 -continue norepi, fluid bolus this AM -continue pip-tazo -blood cultures 10/21 pending, urine cx pending, MRSA nares negative Acute hypercarbic respiratory failure -CO2 on abg normalized this am, had some Bipap overnight, naloxone overnight Acute metabolic encephalopathy, seizure-like shaking likely rigors from infection. Brain MRI unremarkable EEG: Mildly abnormal study due to diffuse slowing at times, suggestive of global cortical dysfunction in setting of Encephalopathy. Not in status epilepticus. No epileptic discharges seen. -loaded with keppra in ED but hold off on further doses -today severely agitated even after 2 mg versed by ICU. Discussed with RN - Started precedex with good result, haldol IV PRN, tachycardia improved - may be agitation and potentially B-silviano withdrawal as well as sepsis. norepi off this afternoon and hypertensive - restart metoprolol IV PETTY focal (3mm) severe stenosis, no associated stroke -vascular surgery consulted - recommended neuro consult and vascular follow up if procedure thought to be beneficial, otherwise continue statin and antiplatelet follow up 6 months for surveillance DM 2 - at home regimen Lantus 18 U SQ. Most recent A1C 08/2024 @ 7.8% - continue glargine, aspart, BG checks Hepatic steatosis, hepatomegaly on CT - likely MAFLD, BMI 33 CAD/CHF H/o CAD with prior "extensive" stenting per cardiology note, follows with [facility] most recently 10/13/2024; Prior stents in the LAD x3, proximal RCA, and proximal posterolateral branch, presence of CHELSIE but extensive stenting so on DAPT still. - Cardio meds- Metoprolol, ASA, Plavix, spironolactone - hold spironolactone until hypotension resolved Replacing hypomagnesemia (1.2) with IV mag #Spinal stenosis, lumbar region- Does follow with ortho most recently 10/16/2024; Previously followed with neurology and PT. Pain medications as ordered. #OAB-oxybutynin, Solifenacin - held #HTN-metoprolol, isosorbide mononitrate - held #HLD-rosuvastatin #Restless leg syndrome-pramipexole held DVT ppx - ordered enoxaparin 40 SQ daily Admission and Anticipated Discharge Date Admission Date: October 21, 2024 Subjective somnolent when I saw her in the morning, said "my arm hurts" - site of chris and PIV in afternoon acutely agitated saying "I need to get out of here" Physical Exam 2 Physical Exam: PHYSICAL EXAMINATION Last 24h vital signs reviewed, see documentation in flowsheet General: agitated HEENT: Normocephalic, atraumatic, pupils round and equal, sclerae anicteric, no conjunctival injection, moist mucus membranes Lungs: Normal respiratory effort. Clear to auscultation bilaterally. No RRW Heart: tachycardic Regular rate and rhythm, no murmurs. No JVD Abdomen: Soft, nontender, nondistended. Bowel sounds present. Extremities: Warm, dry, well-perfused. No extremity edema. Neuro: Alert and oriented x self, very confused and agitated, verbalizes phrases, face symmetric, moves 4 extremities well Psych: agitated Results & Data Results & Data Vital Signs (Past 12 Hours) Vital Signs Temp Pulse Pulse Resp BP BP Pulse Ox 10/22/24 08:08 98.4 F 10/22/24 07:22 115 H 10/22/24 07:18 102/58 L 10/22/24 07:18 102/58 L 10/22/24 07:15 103/57 L 10/22/24 07:03 107 H 7 L 87 L 10/22/24 07:00 81/53 L 10/22/24 07:00 81/53 L 10/22/24 07:00 81/53 L 10/22/24 07:00 113 H 12 87 L 10/22/24 06:45 100/57 L 10/22/24 06:45 100/57 L 10/22/24 06:39 122 H 17 85 L 10/22/24 06:36 129 H 23 83 L 10/22/24 06:30 114/73 10/22/24 06:27 124 H 19 94 10/22/24 06:15 126/76 10/22/24 06:15 126/76 10/22/24 06:15 126/76 10/22/24 06:15 122 H 13 92 10/22/24 06:00 123 H 23 93 10/22/24 06:00 121/61 10/22/24 06:00 121/61 10/22/24 06:00 121/61 10/22/24 05:54 127 H 20 94 10/22/24 05:45 148/73 H 10/22/24 05:45 148/73 H 10/22/24 05:42 130 H 23 95 10/22/24 05:39 128 H 13 93 10/22/24 05:27 123 H 19 100 10/22/24 05:15 117 H 20 96 10/22/24 05:15 121/67 10/22/24 05:15 121/67 10/22/24 05:12 117 H 13 98 10/22/24 05:09 110 H 16 98 10/22/24 05:01 159/125 H 10/22/24 05:01 159/125 H 10/22/24 04:45 131/74 10/22/24 04:45 131/74 10/22/24 04:45 131/74 10/22/24 04:45 103 H 27 H 99 10/22/24 04:39 98 H 18 93 10/22/24 04:24 96 H 19 93 10/22/24 04:15 125/71 10/22/24 04:15 125/71 10/22/24 04:09 97 H 24 94 10/22/24 04:00 101 H 19 93 10/22/24 04:00 121/67 10/22/24 04:00 121/10/22/24 03:51 106 H 18 89 L 10/22/24 03:50 120/75 10/22/24 02:33 99.1 F 91 H 20 96 10/22/24 02:30 98/55 L 10/22/24 02:15 97/56 L 10/22/24 02:00 86/52 L 10/22/24 02:00 86/52 L 10/22/24 01:51 99.9 F H 100 H 19 97 10/22/24 01:45 99.9 F H 99 H 20 97 10/22/24 01:45 98/56 L 10/22/24 01:45 98/56 L 10/22/24 01:45 98/56 L 10/22/24 01:42 100.0 F H 104 H 21 100 10/22/24 01:33 100.0 F H 104 H 24 92 10/22/24 01:30 107/60 10/22/24 01:30 107/60 10/22/24 01:21 100.2 F H 101 H 21 92 10/22/24 01:15 100.2 F H 102 H 22 92 10/22/24 01:15 94/60 L 10/22/24 01:15 94/60 L 10/22/24 01:12 100.4 F H 103 H 21 93 10/22/24 01:03 100.6 F H 102 H 22 87 L 10/22/24 01:02 100.4 F H 103 H 22 99/65 L 94 10/22/24 01:00 101/68 10/22/24 00:45 10/22/24 00:42 100.4 F H 108 H 20 94 10/22/24 00:30 90/50 L 10/22/24 00:30 90/50 L 10/22/24 00:30 90/50 L 10/22/24 00:30 100.4 F H 108 H 26 H 97 10/22/24 00:30 105 H 34 H 98 10/22/24 00:21 112 H 16 10/22/24 00:20 94/68 L 10/22/24 00:20 94/68 L 10/22/24 00:20 94/68 L 10/22/24 00:15 89 L 10/22/24 00:06 105 H 19 95 10/22/24 00:05 82/61 L 10/22/24 00:02 107 H 18 81/60 L 95 10/21/24 23:57 105 H 20 95 10/21/24 23:48 104 H 22 99/66 L 94 10/21/24 23:38 94/59 L 10/21/24 23:33 109 H 20 73 L 10/21/24 23:21 106 H 21 10/21/24 23:20 82/59 L 10/21/24 23:15 105/73 10/21/24 23:15 107 H 19 10/21/24 23:10 103/74 10/21/24 23:09 108 H 21 10/21/24 23:07 95/68 L 10/21/24 23:03 137/111 H 10/21/24 23:00 82/60 L 10/21/24 23:00 82/60 L 10/21/24 23:00 100 H 15 10/21/24 22:55 69/51 L 10/21/24 22:55 69/51 L 10/21/24 22:50 78/61 L 10/21/24 22:45 95 H 16 79 L 10/21/24 22:45 77/46 L 10/21/24 22:39 97 H 17 10/21/24 22:38 54/34 L 10/21/24 22:34 63/44 L 10/21/24 22:30 66/40 L 10/21/24 22:27 76/43 L 10/21/24 22:25 62/41 L 10/21/24 22:21 98 H 17 10/21/24 22:18 62/40 L 10/21/24 22:18 62/40 L 10/21/24 22:14 62/43 L 10/21/24 22:13 64/42 L 10/21/24 22:03 103 H 15 10/21/24 22:02 87/56 L 10/21/24 22:02 87/56 L 10/21/24 22:01 69/53 L 10/21/24 21:57 114 H 19 10/21/24 21:51 112 H 14 10/21/24 21:41 107 H 10/21/24 21:30 108 H 16 10/21/24 21:24 111 H 9 L 10/21/24 21:00 111 H 14 97 10/21/24 20:42 112 H 14 95 O2 Del Method O2 Flow Rate FiO2 10/22/24 08:08 10/22/24 07:22 10/22/24 07:18 10/22/24 07:18 10/22/24 07:15 10/22/24 07:03 10/22/24 07:00 10/22/24 07:00 10/22/24 07:00 10/22/24 07:00 10/22/24 06:45 10/22/24 06:45 10/22/24 06:39 10/22/24 06:36 10/22/24 06:30 10/22/24 06:27 Nasal Cannula 2 10/22/24 06:15 10/22/24 06:15 10/22/24 06:15 10/22/24 06:15 10/22/24 06:00 10/22/24 06:00 10/22/24 06:00 10/22/24 06:00 10/22/24 05:54 10/22/24 05:45 10/22/24 05:45 10/22/24 05:42 10/22/24 05:39 10/22/24 05:27 10/22/24 05:15 10/22/24 05:15 10/22/24 05:15 10/22/24 05:12 10/22/24 05:09 10/22/24 05:01 10/22/24 05:01 10/22/24 04:45 10/22/24 04:45 10/22/24 04:45 10/22/24 04:45 30 10/22/24 04:39 10/22/24 04:24 10/22/24 04:15 10/22/24 04:15 10/22/24 04:09 10/22/24 04:00 10/22/24 04:00 10/22/24 04:00 10/22/24 03:51 10/22/24 03:50 10/22/24 02:33 10/22/24 02:30 10/22/24 02:15 10/22/24 02:00 10/22/24 02:00 10/22/24 01:51 10/22/24 01:45 10/22/24 01:45 10/22/24 01:45 10/22/24 01:45 10/22/24 01:42 10/22/24 01:33 10/22/24 01:30 10/22/24 01:30 10/22/24 01:21 10/22/24 01:15 10/22/24 01:15 10/22/24 01:15 10/22/24 01:12 10/22/24 01:03 10/22/24 01:02 BiPAP 10/22/24 01:00 10/22/24 00:45 BiPAP 40 10/22/24 00:42 10/22/24 00:30 10/22/24 00:30 10/22/24 00:30 10/22/24 00:30 10/22/24 00:30 40 10/22/24 00:21 10/22/24 00:20 10/22/24 00:20 10/22/24 00:20 10/22/24 00:15 10/22/24 00:06 10/22/24 00:05 10/22/24 00:02 Nasal Cannula 3 10/21/24 23:57 Nasal Cannula 2 10/21/24 23:48 Nasal Cannula 3 10/21/24 23:38 10/21/24 23:33 10/21/24 23:21 10/21/24 23:20 10/21/24 23:15 10/21/24 23:15 10/21/24 23:10 10/21/24 23:09 10/21/24 23:07 10/21/24 23:03 10/21/24 23:00 10/21/24 23:00 10/21/24 23:00 10/21/24 22:55 10/21/24 22:55 10/21/24 22:50 10/21/24 22:45 10/21/24 22:45 10/21/24 22:39 10/21/24 22:38 10/21/24 22:34 10/21/24 22:30 10/21/24 22:27 10/21/24 22:25 10/21/24 22:21 10/21/24 22:18 10/21/24 22:18 10/21/24 22:14 10/21/24 22:13 10/21/24 22:03 10/21/24 22:02 10/21/24 22:02 10/21/24 22:01 10/21/24 21:57 10/21/24 21:51 10/21/24 21:41 10/21/24 21:30 10/21/24 21:24 10/21/24 21:00 10/21/24 20:42 Laboratory Results 10/22/24 04:46 10/22/24 04:46 PG Care Time/CCT Total # of Minutes Spent Total Time Spent with Patient: Total time spent is greater than 50% in coordination of care (as documented) at patient's floor/unit and/or counseling patient: Coding Level of Care Code 08454 SUB INP/OBS CARE 3/50MIN Diagnoses Septic shock A41.9; R65.21 Seizure-like activity R56.9 Acute UTI N39.0 Carotid stenosis, right I65.21
[2024-10-22] MEDS ORDERED: METOPROLOL SUCC 50MG EXT REL TAB PO SCH (09:00)
[2024-10-22] MEDS ORDERED: ISOSORBIDE MONO EXTENDED REL 30 MG TABCR PO SCH (09:00)
[2024-10-22] MEDS: ENOXAPARIN INJ 40 MG/0.4 ML SYR SQ SCH (09:16)
--- NOTE | 2024-10-22 09:48 | Billing Data ---
Date of Service October 22, 2024 Coding Level of Care Code 99785 CRITICAL CARE
--- NOTE | 2024-10-22 10:04 | Ultrasound Report ---
CAROTID ARTERY ULTRASOUND CLINICAL HISTORY: right ICA severe stenosis COMPARISON STUDY: CTA of the neck April 19, 2024. TECHNIQUE: Real-time, grayscale, and color Doppler sonography of the carotid and vertebral arteries w as performed. Images were viewed in the transverse and longitudinal planes. FINDINGS: There is extensive atherosclerotic plaque within the proximal bilateral internal carotid arteries. Ve locity measurements are listed below. COMMON CAROTID PEAK SYSTOLIC VELOCITY (CM/S): RIGHT 82 LEFT 85 ICA PEAK SYSTOLIC VELOCITY (CM/S): RIGHT 168 LEFT 113 The peak systolic ratio the right internal to common carotid artery is mildly elevated at 2. Antegrade flow is seen in the vertebral arteries. The external carotid arteries are patent. IMPRESSION: Extensive atherosclerotic plaque within the proximal bilateral internal carotid arteries . Sonographic findings suggest 50-69% stenosis of the proximal right internal carotid artery. However , when correlating with prior CTA, sonography is likely underestimating the degree of stenosis. ACT 112: Negative or not required by law. Electronically signed by: Mu Arriaza M.D. 10/22/2024 10:03 AM
--- NOTE | 2024-10-22 11:00 | Pharmacy Report ---
Pharmacy Glycemic Short Note 2 - Date of Service October 22, 2024 - Glycemic Short BSG Results (Last 24 hours): 10/21/24 10/21/24 10/21/24 18:37 18:51 23:46 Glucose Cancelled 156 H POC Glucose 223 H 10/22/24 10/22/24 10/22/24 04:32 04:46 07:16 Glucose 191 H POC Glucose 211 H 162 H OUTPATIENT ANTIDIABETIC REGIMEN: * Lantus 18 units SQ BID HbA1C: 7.8% (08/11/24) ASSESSMENT: * Pt is a 68 year old female admitted with UTI and seizure like activity. History of DM2 on insulin therapy @ home. Pharmacy consulted to assist with inpatient glycemic management. * BSGs [phone]/dL since admission. No insulin administered yesterday. * Ordered clear liquid diet, however minimal PO intake. Receiving IV antibiotics. * Agree with Lantus 8 units X 1 dose this AM - will plan for a scale regimen moving forward depending on BSG. Novolog ACHS moderate stress scale. PLAN FOR INPATIENT GLYCEMIC CONTROL: * Hold outpatient oral diabetes medications * Basal insulin * Lantus 8 units SQ X 1 dose this AM, 0/5/10 units BID depending on BSG starting tonight. * Bolus insulin * NovoLog per scale ACHS or Q6hrs while NPO * Goal Range: Low 110 mg/dL - High 140 mg/dL * Correction Factor: 35 mg/dL/unit * Nutritional / Prandial insulin per carb ratio of 1 unit per 12 grams CHO consumed
--- NOTE | 2024-10-22 11:50 | Electrocardiogram Report ---
Test Reason : Blood Pressure : */* mmHG Vent. Rate : 138 BPM Atrial Rate : 138 BPM P-R Int : 152 ms QRS Dur : 84 ms QT Int : 272 ms P-R-T Axes : 46 36 35 degrees QTcB Int : 412 ms Sinus tachycardia Otherwise normal ECG When compared with ECG of 10-Aug-2024 18:28, Vent. rate has increased by 46 bpm Confirmed by Carlos Enrique Mata ([id number]) on 10/22/2024 11:49:54 AM Referred By: REFERRED SELF Confirmed By: Carlos Enrique Mata
[2024-10-22] MEDS ORDERED: cefTRIAXone SODIUM 2,000 MG/50 ML BAG IV SCH (12:00)
[2024-10-22] MEDS ORDERED: MIDAZOLAM HCL 1 MG/ML 2ML VIAL IV PRN (13:56)
[2024-10-22] MEDS: MIDAZOLAM HCL 1 MG/ML 2ML VIAL ONE (14:08)
[2024-10-22] MEDS: ACETAMINOPHEN 1,000 MG/100 ML VIAL IV PRN (14:40)
[2024-10-22] MEDS ORDERED: STAT IV Infusion **Titration per Protocol STA ×2 (14:58→17:50)
[2024-10-22] MEDS: dexMEDEtomidine 200 MCG/50 ML BAG IV SCH (15:04)
[2024-10-22] MEDS: HALOPERIDOL LACTATE 5 MG/ML 1 ML VIAL IV PRN (15:50)
--- NOTE | 2024-10-22 15:55 | Electroencephalogram ---
EEG Procedure Note Date of Service October 22, 2024 Start / End Times Start Time: 1029 End Time: 1049 Referring Physician josephine birch History confusion/lethargic Home Medication List Medication Instructions Recorded Confirmed Type aspirin 81 mg tablet,delayed 81 mg PO DAILY 07/06/20 10/21/24 History release (Adult Low Dose Aspirin) blood sugar diagnostic (OneTouch #100 ea 04/26/23 10/13/24 Rx Verio test strips) lancets 33 gauge (OneTouch Delica #100 ea 04/26/23 10/13/24 Rx Plus Lancet) pen needle, diabetic 32 gauge x #100 ea 04/26/23 10/13/24 Rx 5/32" (Pen Needle) spironolactone 100 mg tablet 50 mg (1/2 x 100 mg) PO QAM #30 04/26/23 10/21/24 Rx tabs pramipexole 0.25 mg tablet 0.5 mg PO BID 04/19/24 10/21/24 History isosorbide mononitrate 30 mg 30 mg PO QAM 08/10/24 10/21/24 History tablet,extended release 24 hr metoprolol succinate 200 mg 200 mg PO QAM 08/10/24 10/21/24 History tablet,extended release 24 hr acetaminophen 325 mg tablet 650 mg (2 x 325 mg) PO Q4H PRN #0 08/13/24 10/21/24 Rx tabs rosuvastatin 20 mg tablet 20 mg PO QAM #90 tabs 09/26/24 10/21/24 Rx clopidogrel 75 mg tablet (Plavix) 75 mg PO DAILY #90 tabs 10/07/24 10/21/24 Rx cephalexin 500 mg capsule 500 mg PO BID 7 days #14 caps 10/21/24 10/21/24 Rx insulin glargine 100 unit/mL 18 unit subcut UD 10/21/24 10/21/24 History subcutaneous solution (Lantus U-100 Insulin) oxybutynin chloride 10 mg 10 mg PO DAILY 10/21/24 10/21/24 History tablet,extended release 24 hr solifenacin 10 mg tablet 10 mg PO DAILY 10/21/24 10/21/24 History Inpatient Medication List Enoxaparin Sodium (Enoxaparin Inj 40 Mg/0.4 Ml Syr) 40 mg SQ QAM OLE Stop: 11/21/24 08:59 Last Admin: 10/22/24 09:16 Dose: 40 mg Documented By: IRMA Piperacillin Sod/Tazobactam Sod (Zosyn) 4.5 gm in 100 mls @ 25 mls/hr IV Q8H OLE; Protocol Stop: 10/29/24 05:59 Last Admin: 10/22/24 13:34 Dose: 25 mls/hr Documented By: Infusion: 10/22/24 09:06 Dose: Infused Documented By: Admin: 10/22/24 04:52 Dose: 25 mls/hr Documented By: FRANCISCA Acetaminophen (Ofirmev) 1,000 mg in 100 mls @ 400 mls/hr IV Q8H PRN PRN Reason: Fever/Pain Stop: 10/25/24 01:30 Last Admin: 10/22/24 14:40 Dose: 400 mls/hr Documented By: IRMA Parenteral Electrolytes (Plasma-Lyte A Ph 7.4) 1,000 mls @ 100 mls/hr IV .Q10H OLE Stop: 10/23/24 03:44 Last Admin: 10/22/24 13:43 Dose: 100 mls/hr Documented By: Infusion: 10/22/24 13:43 Dose: Infused Documented By: Admin: 10/22/24 03:56 Dose: 100 mls/hr Documented By: FRANCISCA Dexmedetomidine/Sodium Chloride (Precedex) 200 mcg in 50 mls @ 27.57 mls/hr IV .Q1H49M OLE; Protocol Stop: 10/26/24 14:59 Last Titration: 10/22/24 15:37 Dose: 1.2 mcg/kg/hr, 27.6 mls/hr Documented By: Titration: 10/22/24 15:26 Dose: 1 mcg/kg/hr, 23 mls/hr Documented By: Titration: 10/22/24 15:21 Dose: 0.8 mcg/kg/hr, 18.4 mls/hr Documented By: Titration: 10/22/24 15:10 Dose: 0.6 mcg/kg/hr, 13.8 mls/hr Documented By: Admin: 10/22/24 15:04 Dose: 0.4 mcg/kg/hr, 9.2 mls/hr Documented By: IRMA Co-signed By: AMISHA Insulin Aspart (Insulin Aspart Per Unit Charge) 0 units SC ACHS OLE Stop: 11/20/24 22:04 Last Admin: 10/22/24 11:40 Dose: 1 units Documented By: IRMA Co-signed By: NELLIE Admin: 10/22/24 08:14 Dose: 1 units Documented By: IRMA Co-signed By: NELLIE Admin: 10/22/24 00:59 Dose: Not Given Documented By: FRANCISCA Oxybutynin Chloride (Oxybutynin Chloride Xl 5 Mg Tabcr) 10 mg PO DAILY OLE Stop: 11/21/24 08:59 Last Admin: 10/22/24 08:26 Dose: Not Given Documented By: IRMA Rosuvastatin Calcium (Rosuvastatin Calcium 20 Mg Tab) 20 mg PO QAM [facility] Stop: 11/21/24 08:59 Last Admin: 10/22/24 08:26 Dose: Not Given Documented By: IRMA Discontinued Medications Albumin Human (Albumin Human 5% 12.5 Gm/250 Ml Vial) Confirm Administered Dose 12.5 gm IV .STK-MED ONE Stop: 10/21/24 23:52 Last Admin: 10/21/24 23:56 Dose: Not Given Documented By: MARIA Gadobutrol (Gadobutrol 65ml Vial) 9 ml IV ONCE ONE Stop: 10/22/24 03:45 Last Admin: 10/22/24 03:44 Dose: 9 ml Documented By: NATAN Sodium Chloride (Nss) 1,000 mls @ 999 mls/hr IV .Q1H1M ONE Stop: 10/21/24 18:07 Last Infusion: 10/21/24 18:47 Dose: Infused Documented By: Admin: 10/21/24 17:43 Dose: 999 mls/hr Documented By: FLORA Acetaminophen (Ofirmev) 1,000 mg in 100 mls @ 400 mls/hr IV NOW STA Stop: 10/21/24 17:54 Last Infusion: 10/21/24 18:46 Dose: Infused Documented By: Admin: 10/21/24 17:45 Dose: 400 mls/hr Documented By: FLORA Sodium Chloride (Nss) 500 mls @ 999 mls/hr IV .Q31M ONE Stop: 10/21/24 18:48 Last Infusion: 10/21/24 20:13 Dose: Infused Documented By: Admin: 10/21/24 19:19 Dose: 999 mls/hr Documented By: MANOJ Sodium Chloride (Nss) 500 mls @ 999 mls/hr IV .Q31M ONE Stop: 10/21/24 19:06 Last Infusion: 10/21/24 20:13 Dose: Infused Documented By: KMSoheila Admin: 10/21/24 19:19 Dose: 999 mls/hr Documented By: MANOJ Sodium Chloride (Nss) 1,000 mls @ 999 mls/hr IV .Q1H1M OLE Stop: 10/21/24 22:52 Last Infusion: 10/21/24 23:34 Dose: Infused Documented By: Admin: 10/21/24 22:13 Dose: 999 mls/hr Documented By: MANOJ Lactated Ringer's (Lr) 1,000 mls @ 999 mls/hr IV .Q1H1M OLE Stop: 10/22/24 00:00 Last Infusion: 10/21/24 23:33 Dose: Infused Documented By: Admin: 10/21/24 23:06 Dose: 999 mls/hr Documented By: MANOJ Norepinephrine Bitartrate (Levophed/D5w) 4 mg in 250 mls @ 0 mls/hr IV .Q0M OLE; Protocol Stop: 11/20/24 22:59 Last Titration: 10/22/24 10:18 Dose: Infused Documented By: LAF Co-signed By: GPF Titration: 10/22/24 05:35 Dose: 0 mcg/kg/min, 0 mls/hr Documented By: CP Co-signed By: ESG Titration: 10/22/24 05:20 Dose: 0.02 mcg/kg/min, 6.9 mls/hr Documented By: CP Co-signed By: ESG Titration: 10/22/24 05:07 Dose: 0.05 mcg/kg/min, 17.2 mls/hr Documented By: CP Co-signed By: ESG Titration: 10/22/24 04:00 Dose: 0.06 mcg/kg/min, 20.7 mls/hr Documented By: CP Co-signed By: ESG Titration: 10/22/24 03:00 Dose: 0.08 mcg/kg/min, 27.6 mls/hr Documented By: CP Co-signed By: ESG Titration: 10/22/24 02:03 Dose: 0.1 mcg/kg/min, 34.5 mls/hr Documented By: CP Co-signed By: MARIA ISABEL Titration: 10/22/24 01:29 Dose: 0.08 mcg/kg/min, 27.6 mls/hr Documented By: CP Co-signed By: MNCharo Titration: 10/22/24 01:14 Dose: 0.07 mcg/kg/min, 24.1 mls/hr Documented By: CP Co-signed By: MNM Admin: 10/21/24 23:34 Dose: 0.05 mcg/kg/min, 17.2 mls/hr Documented By: KMS Co-signed By: AN Albumin Human (Albumin 5%) 250 mls @ 500 mls/hr IV ONE ONE Stop: 10/22/24 00:19 Last Infusion: 10/22/24 01:00 Dose: Infused Documented By: Admin: 10/21/24 23:57 Dose: 500 mls/hr Documented By: AN Acetaminophen (Ofirmev) 1,000 mg in 100 mls @ 400 mls/hr IV NOW STA Stop: 10/22/24 01:00 Last Infusion: 10/22/24 01:02 Dose: Infused Documented By: Admin: 10/22/24 00:57 Dose: 400 mls/hr Documented By: CP Piperacillin Sod/Tazobactam Sod (Zosyn) 4.5 gm in 100 mls @ 200 mls/hr IV ONE ONE; Protocol Stop: 10/22/24 01:29 Last Infusion: 10/22/24 01:59 Dose: Infused Documented By: Admin: 10/22/24 01:12 Dose: 200 mls/hr Documented By: CP Magnesium Sulfate/Dextrose (Magnesium Sulfate / D5w) 1 gm in 100 mls @ 50 mls/hr IV Q2H OLE Stop: 10/22/24 15:44 Last Admin: 10/22/24 13:44 Dose: 50 mls/hr Documented By: Infusion: 10/22/24 13:41 Dose: Infused Documented By: Admin: 10/22/24 11:41 Dose: 50 mls/hr Documented By: Infusion: 10/22/24 11:41 Dose: Infused Documented By: Admin: 10/22/24 09:55 Dose: 50 mls/hr Documented By: Infusion: 10/22/24 09:40 Dose: Infused Documented By: Admin: 10/22/24 07:40 Dose: 50 mls/hr Documented By: Infusion: 10/22/24 07:40 Dose: Infused Documented By: Admin: 10/22/24 06:01 Dose: 50 mls/hr Documented By: FRANCISCA Insulin Aspart (Insulin Aspart Per Unit Charge) 0 units SC 0400 OLE Stop: 10/22/24 04:01 Last Admin: 10/22/24 04:40 Dose: 3 units Documented By: FRANCISCA Co-signed By: ESG Insulin Glargine (Lantus Per Unit Charge) 8 units SQ ONE ONE Stop: 10/22/24 09:01 Last Admin: 10/22/24 08:14 Dose: 8 units Documented By: IRMA Co-signed By: NELLIE Ioversol (Optiray 320 100ml) 90 ml IV ONCE ONE Stop: 10/21/24 21:18 Last Admin: 10/21/24 21:17 Dose: 90 ml Documented By: MARILYN Ketorolac Tromethamine (Ketorolac Tromethamine 15 Mg/Ml Vial) 10 mg IV NOW ONE Stop: 10/21/24 17:41 Last Admin: 10/21/24 17:44 Dose: 10 mg Documented By: FLORA Levetiracetam (Levetiracetam 500 Mg/5 Ml Vial) 2,000 mg IV NOW STA Stop: 10/21/24 17:08 Last Admin: 10/21/24 17:43 Dose: 2,000 mg Documented By: GIRISH Lorazepam (Lorazepam 1 Mg/1 Ml Syr Ed Inj Use) 1 mg IV ONE STA Stop: 10/21/24 17:08 Last Admin: 10/21/24 17:54 Dose: Not Given Documented By: FLORA Lorazepam (Lorazepam 1 Mg/1 Ml Syr Ed Inj Use) 1 mg IM ONE STA Stop: 10/21/24 17:13 Last Admin: 10/21/24 17:14 Dose: 1 mg Documented By: FLORA Lorazepam (Lorazepam 1 Mg/1 Ml Syr Ed Inj Use) 0.5 mg IV ONE STA Stop: 10/21/24 17:41 Last Admin: 10/21/24 17:46 Dose: 0.5 mg Documented By: FLORA Midazolam HCl (Midazolam Hcl 1 Mg/Ml 2ml Vial) Confirm Administered Dose 2 mg .ROUTE .ST-MED ONE Stop: 10/22/24 14:02 Last Admin: 10/22/24 14:08 Dose: 2 mg Documented By: IRMA Morphine Sulfate (Morphine Sulfate 2 Mg/Ml Carp) 2 mg IV NOW STA Stop: 10/21/24 17:08 Last Admin: 10/21/24 17:55 Dose: Not Given Documented By: FLORA Morphine Sulfate (Morphine Sulfate 2 Mg/Ml Carp) 2 mg IM NOW STA Stop: 10/21/24 17:13 Last Admin: 10/21/24 17:14 Dose: 2 mg Documented By: FLORA Morphine Sulfate (Morphine Sulfate 4 Mg/Ml 1 Ml Carp\\Vial) 4 mg IM NOW STA Stop: 10/21/24 17:25 Last Admin: 10/21/24 17:28 Dose: 4 mg Documented By: FLORA Naloxone HCl (Naloxone Hcl 0.4 Mg/1 Ml Vial/Carp) 0.4 mg IV NOW STA Stop: 10/21/24 22:57 Last Admin: 10/21/24 23:06 Dose: 0.4 mg Documented By: MANOJ Naloxone HCl (Naloxone Hcl 0.4 Mg/1 Ml Vial/Carp) Confirm Administered Dose 0.4 mg .ROUTE .ST-MED ONE Stop: 10/21/24 23:00 Last Admin: 10/21/24 23:04 Dose: Not Given Documented By: MANOJ Naloxone HCl (Naloxone Hcl 0.4 Mg/1 Ml Vial/Carp) 0.4 mg IV NOW STA Stop: 10/21/24 23:23 Last Admin: 10/21/24 23:33 Dose: 0.4 mg Documented By: MANOJ Norepinephrine Bitartrate (Norepinephrine/D5w 4 Mg/250 Ml) Confirm Administered Dose 4 mg IV .ST-MED ONE Stop: 10/21/24 22:58 Last Admin: 10/21/24 23:05 Dose: Not Given Documented By: MANOJ Ondansetron HCl (Ondansetron Inj 2 Mg/Ml 2 Ml Vial) 4 mg IV NOW STA Stop: 10/21/24 17:08 Last Admin: 10/21/24 17:55 Dose: Not Given Documented By: FLORA Ondansetron HCl (Ondansetron 4 Mg Od Tab) 4 mg PO NOW STA Stop: 10/21/24 17:13 Last Admin: 10/21/24 17:17 Dose: 4 mg Documented By: FLORA Pramipexole Dihydrochloride (Pramipexole Dihydrochlo 0.5 Mg Tab) 0.5 mg PO BID OLE Stop: 11/20/24 22:04 Last Admin: 10/21/24 22:31 Dose: Not Given Documented By: MANOJ Pramipexole Dihydrochloride (Pramipexole Dihydrochlo 0.5 Mg Tab) 0.5 mg PO NOW STA Stop: 10/22/24 06:29 Last Admin: 10/22/24 06:38 Dose: 0.5 mg Documented By: FRANCISCA Description This is a 21 electrode EEG with a single channel dedicated to limited EKG. The electrodes were placed in accordance with the International 10-20 system. Interpretation This is a 21 electrode EEG with a single channel dedicated to limited EKG. The electrodes were placed in accordance with the International 10-20 system. There is a posterior dominant rhythm of 6-7Hz which is symmetrically distributed and attenuates with eye opening. There is a normal anterior to posterior organization. Photic stimulation: unremarkable Hyperventilation performed: ___ unremarkable; _x_ not performed. There is no focal slowing. No epileptiform abnormalities. Sleep stage: __ not achieved, __x_drowsy state, ___ Stage II, ___ REM stage achieved. Interpretation Mildly abnormal study due to diffuse slowing at times, suggestive of global cortical dysfunction in setting of Encephalopathy. Not in status epilepticus. No epileptic discharges seen. [facility] Procedure Codes Indication for Procedure (1) Seizure-like activity: Neurology Neurology: 26476 EEG include record awake & drowsy
--- NOTE | 2024-10-22 16:35 | Consultation ---
Date of Consultation October 22, 2024 Assessment & Plan (1) Carotid stenosis, right: Pt with R ICA stenosis noted on imaging performed last year. No definitive R hemispheric sx indicated in hx, no R hemispheric infarct on MRI. Pt currently obtunded and unable to provide any hx. Recommend neuro eval. Will be happy to reeval if recommended by neurology. Otherwise, will plan to see pt in office in 6 months with a carotid US for surveillance. Please call if needed. History of Present Illness Reason for Consultation: R ICA stenosis Attending Physician: Merry Kennedy MD History of Present Illness 68 yo f with hx of HTN, lumbar spinal stenosis with chronic pain, CHF, DMII, hypercholesterolemia, CAD, admitted with AMS, seen in consultation today for R ICA stenosis noted on imaging. Pt currently obtunded and unable to answer questions. Family not present. History obtained from prior notes. Per chart, pt had sx of a UTI and then had some episodes of extremity rigidity, agitation, and confusion. She was seen at another hospital, where she was given abx, but pt suffered a second event while in the parking lot at the pharmacy, so EMS was called. There was a question of possible seizure, however, pt without known hx. Pt has been very confused/combative/agitated/confused/somnolent since arrival. Asked to see pt regarding R ICA stenosis with possible CVA. Imaging: Pt with CTA neck performed last year, which demonstrates a very focal 3mm area of stenosis in R ICA. MRI this admission without acute infarct. Allergies Allergy/AdvReac Type Severity Reaction Status Date / Time bee venom protein (honey bee) Allergy Severe DIFFICULTY Verified 10/13/24 11:32 BREATHING/HIVES/ITCHY Home Medications Medication Instructions Recorded Confirmed Type aspirin 81 mg tablet,delayed 81 mg PO DAILY 07/06/20 10/21/24 History release (Adult Low Dose Aspirin) blood sugar diagnostic (OneTouch #100 ea 04/26/23 10/13/24 Rx Verio test strips) lancets 33 gauge (OneTouch Delica #100 ea 04/26/23 10/13/24 Rx Plus Lancet) pen needle, diabetic 32 gauge x #100 ea 04/26/23 10/13/24 Rx 5/32" (Pen Needle) spironolactone 100 mg tablet 50 mg (1/2 x 100 mg) PO QAM #30 04/26/23 10/21/24 Rx tabs pramipexole 0.25 mg tablet 0.5 mg PO BID 04/19/24 10/21/24 History isosorbide mononitrate 30 mg 30 mg PO QAM 08/10/24 10/21/24 History tablet,extended release 24 hr metoprolol succinate 200 mg 200 mg PO QAM 08/10/24 10/21/24 History tablet,extended release 24 hr acetaminophen 325 mg tablet 650 mg (2 x 325 mg) PO Q4H PRN #0 08/13/24 10/21/24 Rx tabs rosuvastatin 20 mg tablet 20 mg PO QAM #90 tabs 09/26/24 10/21/24 Rx clopidogrel 75 mg tablet (Plavix) 75 mg PO DAILY #90 tabs 10/07/24 10/21/24 Rx cephalexin 500 mg capsule 500 mg PO BID 7 days #14 caps 10/21/24 10/21/24 Rx insulin glargine 100 unit/mL 18 unit subcut UD 10/21/24 10/21/24 History subcutaneous solution (Lantus U-100 Insulin) oxybutynin chloride 10 mg 10 mg PO DAILY 10/21/24 10/21/24 History tablet,extended release 24 hr solifenacin 10 mg tablet 10 mg PO DAILY 10/21/24 10/21/24 History Patient History Medical History Acute UTI Surgical History History of lumbar surgery L4-5 discectomy Social History Smoking Status: Former smoker Tobacco Type: Cigarettes Smoking End Date: unknown; Hx Alcohol Use: No Hx Substance Use: No Preferred Language: German Communication Ability: AMS Visual Impairment: Limited Hearing Ability: Hard of Hearing Billing Control Clerk Required: No Beliefs That Will Affect Care: None marital status: Current Living Situation: Spouse current occupational status: retired Feels Safe at Home: Yes Assistive Devices: None Review of Systems Review of Systems: Unobtainable due to cognitive status Physical Exam Constitutional: + ill appearing and + morbidly obese; no t in distress (sleeping, arousable to pain) Neck: trachea midline Respiratory: normal respiratory effort, lungs clear to auscultation Auscultation: + diminished lung sounds Cardiovascular: Rate/Rhythm: + tachycardic Vessels: posterior tibial pulses present and dorsalis pedis pulses present; + abnormal peripheral pulses Extremities: normal capillary refill and + edema (generalized) Gastrointestinal (Abdomen): Inspection/Auscultation: normal bowel sounds Percussion/Palpation: abdomen soft; no guarding Musculoskeletal: Extremities: no cyanosis Skin: no rashes, warm and dry Neurologic: + obtunded Psychiatric: Orientation: + not alert, + not oriented to person, + not oriented to place and + not oriented to time Results & Data Vital Signs (Past 12 Hours) Vital Signs Temp Pulse Resp BP Pulse Ox O2 Del Method O2 Flow Rate 10/22/24 15:45 131 H 20 94 10/22/24 15:39 37.3 C 10/22/24 15:36 137 H 20 94 10/22/24 15:03 153 H 23 97 10/22/24 14:57 153 H 28 H 95 10/22/24 14:48 152 H 20 93 10/22/24 14:43 38.3 C H 10/22/24 14:24 153 H 17 94 10/22/24 14:12 146 H 26 H 93 10/22/24 14:09 144 H 25 H 93 10/22/24 13:51 146 H 25 H 93 10/22/24 13:33 146 H 22 94 10/22/24 13:30 147/81 H 10/22/24 13:30 147/81 H 10/22/24 13:15 140 H 26 H 93 10/22/24 13:00 138 H 23 93 10/22/24 12:51 135 H 20 93 10/22/24 12:45 135 H 17 95 10/22/24 12:30 133 H 29 H 95 Nasal Cannula 2 10/22/24 12:00 124/74 10/22/24 12:00 124 H 26 H 95 Nasal Cannula 2 10/22/24 11:30 117 H 31 H 98 Nasal Cannula 2 10/22/24 11:30 101/58 L 10/22/24 11:00 111 H 36 H 96 Nasal Cannula 2 10/22/24 10:45 110 H 19 98 Nasal Cannula 2 10/22/24 10:24 112 H 20 96 Nasal Cannula 2 10/22/24 10:15 109 H 24 98 Nasal Cannula 2 10/22/24 09:54 109 H 97 Nasal Cannula 2 10/22/24 09:30 103/55 L 10/22/24 09:30 110 H 22 100 Nasal Cannula 2 10/22/24 09:00 104 H 23 98 Nasal Cannula 2 10/22/24 08:38 Nasal Cannula 2 10/22/24 08:30 103 H 22 Nasal Cannula 2 10/22/24 08:08 36.9 C 10/22/24 08:00 111 H 16 97 Nasal Cannula 2 10/22/24 07:30 108 H 10 L 97 Nasal Cannula 2 10/22/24 07:24 108 H 14 96 Nasal Cannula 2 10/22/24 07:22 115 H 10/22/24 07:18 102/58 L 10/22/24 07:18 102/58 L 10/22/24 07:15 103/57 L 10/22/24 07:03 107 H 7 L 87 L 10/22/24 07:00 81/53 L 10/22/24 07:00 81/53 L 10/22/24 07:00 81/53 L 10/22/24 07:00 113 H 12 87 L 10/22/24 06:45 100/57 L 10/22/24 06:45 100/57 L 10/22/24 06:39 122 H 17 85 L 10/22/24 06:36 129 H 23 83 L 10/22/24 06:30 114/73 10/22/24 06:27 124 H 19 94 Nasal Cannula 2 10/22/24 06:15 126/76 10/22/24 06:15 126/76 10/22/24 06:15 126/76 10/22/24 06:15 122 H 13 92 10/22/24 06:00 123 H 23 93 10/22/24 06:00 121/61 10/22/24 06:00 121/61 10/22/24 06:00 121/61 10/22/24 05:54 127 H 20 94 10/22/24 05:45 148/73 H 10/22/24 05:45 148/73 H 10/22/24 05:42 130 H 23 95 10/22/24 05:39 128 H 13 93 10/22/24 05:27 123 H 19 100 10/22/24 05:15 117 H 20 96 10/22/24 05:15 121/67 10/22/24 05:15 121/67 10/22/24 05:12 117 H 13 98 10/22/24 05:09 110 H 16 98 10/22/24 05:01 159/125 H 10/22/24 05:01 159/125 H 10/22/24 04:45 131/74 10/22/24 04:45 131/74 10/22/24 04:45 131/74 10/22/24 04:45 103 H 27 H 99 10/22/24 04:39 98 H 18 93 10/22/24 04:24 96 H 19 93 FiO2 10/22/24 15:45 10/22/24 15:39 10/22/24 15:36 10/22/24 15:03 10/22/24 14:57 10/22/24 14:48 10/22/24 14:43 10/22/24 14:24 10/22/24 14:12 10/22/24 14:09 10/22/24 13:51 10/22/24 13:33 10/22/24 13:30 10/22/24 13:30 10/22/24 13:15 10/22/24 13:00 10/22/24 12:51 10/22/24 12:45 10/22/24 12:30 10/22/24 12:00 10/22/24 12:00 10/22/24 11:30 10/22/24 11:30 10/22/24 11:00 10/22/24 10:45 10/22/24 10:24 10/22/24 10:15 10/22/24 09:54 10/22/24 09:30 10/22/24 09:30 10/22/24 09:00 10/22/24 08:38 10/22/24 08:30 10/22/24 08:08 10/22/24 08:00 10/22/24 07:30 10/22/24 07:24 10/22/24 07:22 10/22/24 07:18 10/22/24 07:18 10/22/24 07:15 10/22/24 07:03 10/22/24 07:00 10/22/24 07:00 10/22/24 07:00 10/22/24 07:00 10/22/24 06:45 10/22/24 06:45 10/22/24 06:39 10/22/24 06:36 10/22/24 06:30 10/22/24 06:27 10/22/24 06:15 10/22/24 06:15 10/22/24 06:15 10/22/24 06:15 10/22/24 06:00 10/22/24 06:00 10/22/24 06:00 10/22/24 06:00 10/22/24 05:54 10/22/24 05:45 10/22/24 05:45 10/22/24 05:42 10/22/24 05:39 10/22/24 05:27 10/22/24 05:15 10/22/24 05:15 10/22/24 05:15 10/22/24 05:12 10/22/24 05:09 10/22/24 05:01 10/22/24 05:01 10/22/24 04:45 10/22/24 04:45 10/22/24 04:45 10/22/24 04:45 30 10/22/24 04:39 10/22/24 04:24
[2024-10-22] MEDS: NOREPINEPHRINE/D5W 4 MG/250 ML PLCT IV SCH (18:06)
[2024-10-22] MEDS ORDERED: PRAMIPEXOLE DIHYDROCHLO 0.5 MG TAB PO SCH (21:00)
[2024-10-22] MEDS: LANTUS PER UNIT CHARGE SC SCH (21:15)
[2024-10-23 05:14] LABS: Hemoglobin 10.9 g/dl (12.0-16.0); Mean Corpuscular Hemoglobin 27.2 pg (25.0-34.0); Mean Corpuscular Volume 82.3 fL (80.0-100.0); Mean Platelet Volume 10.7 fL (9.4-12.4); Platelet Count 132 K/uL (130-400); RDW Coefficient of Variation 15.6 % (11.5-14.5); RDW Standard Deviation 47.6 fL (36.4-46.3); Red Blood Count 4.01 M/uL (4.20-5.40)
[2024-10-23 05:29] LABS: BUN Creatinine Ratio 23.1 (10-20); Calcium 7.9 mg/dl (8.6-10.3); Creatinine Clr Calc Pharmacy 52.3 ml/min; Magnesium 2.4 mg/dl (1.7-2.4)
--- NOTE | 2024-10-23 06:44 | Critical Care Progress Note ---
Date of Service October 23, 2024 Assessment & Plan (1) Seizure-like activity: (2) Pyelonephritis: (3) Septic shock: (4) Encephalopathy: (5) Lumbar stenosis with neurogenic claudication: (6) CHF (congestive heart failure): (7) HTN (hypertension): (8) Hypercholesteremia: Plan Reason Critically Ill: 68yo female brought back to the ER for possible seizure like activity in setting of UTI, encephalopathic, acidotic, hypotensive requiring vasopressors. Neuro - Encephalopathy, possible seizure-like activity, hx lumbar stenosis with radicular symptoms CAM ICU: NIRAJ - Possible rigors in setting of pyelonephritis/septic shock vs seizure like activity vs. rigors vs. other - head CT negative on arrival for LVO, hemorrhage, or mass - prior CT neck from March 2024 showing severe R IJV stenosis, seen again b/l on doppler study today 10/22/24: extensive atherosclerotic plaque within proximal b/l ICAs, 50-69% on US of prox PETTY but likely underestimated based on March 2024 CTA: "Atherosclerotic plaque and calcifications of the right carotid bulb and proximal ICA. Causes focal severe stenosis for a 3 mm segment." - Sedation with versed, precedex, and haldol for agitation afternoon 10/22/24, MAP persisting >65 in evening - EEG 10/22/24: "Mildly abnormal study due to diffuse slowing at times, suggestive of global cortical dysfunction in setting of Encephalopathy. Not in status epilepticus. No epileptic discharges seen." - brain MRI 10/21/24: Mild chronic microvascular ischemic angiopathy, mild age-related brain involuational changes. - Keppra- loaded in ER with 2g- hold on followup dose at this time- consider if needed 500-1000 mg IV BID - Encephalopathy more likely in setting of severe septic shock due to complicated UTI, however possible as above - Consider LP if remains elusive - home pramipexole dose given PO on 10/23/24 Cardiac - Shock- septic likely urosepsis, downtrending HsCTNI, likely in setting of demand ischemia PMHx HTN, HFpEF, HLD, CAD, stents to LAD x3, proximal RCA, PDA, 2017 mid RCA- hold DAPT until evaluation for possible LP - levophed reordered evening of 10/22/24 for sustained MAP<65 -> discontinued following bag completion due to stable MAP>65 - Bedside POCUS 10/22/24 with adequate squeeze of ventricles and septum, flattened IVC and hyperdynamic LV, no pericardial effusion Update 10/23/24 PM: BP 220/90+ with HR 160-170s with no chest pain, only bladder discomfort with sensation of needing to urinate despite having riojas - given labetalol IV, EKG showing atrial flutter -> given metoprolol 100mg PO with resolution of BP and HR to 120s and 130/50-60s respectively - start home dose metoprolol succinate 200mg qAM tomorrow morning Respiratory - Respiratory failure- hypercarbic, resolving; satting low-mid 90s on room air - Likely in setting of encephalopathy, worsening by sedative medications - Respiratory acidosis corrected with BiPAP - remains with mild metabolic acidosis- follow bicarb, uptrending GI - No acute needs at this time, attempting PO pills and meals off sedation - hx hepatic steatosis RENAL/LYTES - initially CARLIN on CKD, creatinine overall decrease since admission, 1.21 this AM; electrolyte disturbances overall, mixed metabolic and respiratory acidosis overall improving - magnesium resolved, replete calcium - ICU electrolyte protocol - Bilateral hydroureteronephrosis with perinephric stranding in setting of UTI- likely pyelonephritis - Respiratory acidosis corrected with BiPAP - remains with mild metabolic acidosis- follow bicarb - As above - Continue supportive care- no obstruction noted - Riojas to gravity, 250ccs dark urine in bag this AM Update 10/23/24 PM: patient having suprapubic discomfort with sensation of needing to urinate despite having riojas -> bladder scan showing ~100ccs urine in bladder, will continue to monitor urine output and see if discomfort persists ENDO - DMII - ICU hyperglycemic protocol - TSH wnl HEME - No acute needs ID - Septic Shock- UTI complicated- pyelonephritis - UA with 4+ bacteria, showing Klebsiella pneumonia as with prior UTI - Continue ceftriaxone IV - Broaden if concern for [employer] infection changes or patient status worsens LINES/IV ACCESS - CVL Right femoral vein, A-line LT wrist, Riojas Continue use of these lines DVT PROPHYLAXIS - SCDs, SQ heparin; hold on chirography until decision on LP DISPO: ICU until hemodynamics and respiratory status are proven stable Admission and Anticipated Discharge Date Admission Date: October 21, 2024 Supervising Physician Co-Signing Physician Notes Dr. Lee was resident physician during care of patient. I separately evaluated patient for salcedo portions of the history and the exam. I was present during the critical portion of medical decision making, and I discussed the case with the resident. I generally agree with the findings and plan. Required Precedex secondary to ICU delirium/agitation, no longer on vasoactive medication greater than 6 hours, required CPAP overnight secondary to agitation presumptive secondary to probable obstructive sleep apnea, start 5 mg olanzapine, turn off Precedex. Blood cultures no growth to date. Continue IV antibiotics for at least 24 hours given recent febrility. If patient remains off Precedex would be stable for possible downgrade later today. Clinical update: Patient had episode of what appeared to be atrial flutter with hypertensive episode. She has not been on her beta-silviano. Patient is able to take p.o. meds with encouragement. We have reinstituted her beta-blockade. Mikie Snyder was seen and evaluated at bedside this AM, sleeping with BiPAP mask. Was unable to be awoken until the end of encounter, at this time she was able say "yes" to wanting to take her BiPAP off. Successfully transitioned to room air, satting low-mid 90s. Denied being in any particular pain or discomfort. Physical Exam Physical Exam: Constitutional: alert, answers simple questions and follows simple commands but unable to gauge orientation, appearing in minor distress Head: NC/AT ENT: unable to assess EOM, pupils constricted and minimally reactive to light b/l; tongue with red horizontal superficial laceration 1cm posterior from tip, otherwise dry oral mucous membranes Neuro: no facial droop, speech intact but mumbly; moving all extremities slightly, follows instructions to wiggle fingers and toes successfully Respiratory: decreased breath sounds in bases bilaterally, otherwise clear to auscultation Cardiac: RRR, no m/r/g heard on auscultation - skin warm and dry, 2+ carotid pulses, 2+ radial pulses, 1+ post tib pulses GI: +BS, abdomen soft, mild suprapubic tenderness to palpation, mild LUQ and L CVA tenderness to palpation, no rebound or guarding : Riojas to gravity draining dark urine MSK: 4/5 strength in all extremities, 1+ pitting edema in b/l distal UE Results & Data Results & Data Vital Signs (Past 12 Hours) Vital Signs Temp Pulse Resp BP Pulse Ox O2 Del Method O2 Flow Rate 10/23/24 06:06 73 16 97 BiPAP 10/23/24 06:00 73 18 112/63 96 BiPAP 10/23/24 05:48 73 18 97 BiPAP 10/23/24 05:33 72 14 97 BiPAP 10/23/24 05:30 74 16 100/63 96 BiPAP 10/23/24 05:09 73 20 96 BiPAP 10/23/24 05:00 73 20 104/65 96 BiPAP 10/23/24 05:00 74 16 104/65 97 BiPAP 10/23/24 04:57 74 16 97 BiPAP 10/23/24 04:31 73 129/75 96 BiPAP 10/23/24 04:30 75 20 97 BiPAP 10/23/24 04:09 73 16 97 BiPAP 10/23/24 03:30 76 16 118/69 96 BiPAP 10/23/24 03:30 78 16 97 BiPAP 10/23/24 03:06 76 21 98 10/23/24 03:03 74 13 97 BiPAP 10/23/24 03:00 73 16 106/64 96 BiPAP 10/23/24 02:30 76 15 121/77 97 BiPAP 10/23/24 02:30 76 15 97 BiPAP 10/23/24 02:09 76 15 98 BiPAP 10/23/24 01:30 76 18 98 BiPAP 10/23/24 01:00 77 17 97 BiPAP 10/23/24 01:00 78 18 111/71 97 BiPAP 10/23/24 00:30 79 16 97 BiPAP 10/23/24 00:00 81 16 105/63 97 BiPAP 10/23/24 00:00 81 15 97 BiPAP 10/23/24 00:00 81 10/22/24 23:37 85 23 98 10/22/24 23:30 83 16 123/79 97 BiPAP 10/22/24 23:09 85 16 97 BiPAP 10/22/24 23:00 36.6 C 86 16 97 BiPAP 10/22/24 22:33 87 17 97 BiPAP 10/22/24 22:30 87 15 132/80 97 BiPAP 10/22/24 21:42 90 19 97 BiPAP 10/22/24 21:34 96 H 26 H 98 10/22/24 21:30 84 16 125/75 97 BiPAP 10/22/24 21:21 92 H 14 97 BiPAP 10/22/24 21:00 92 H 17 118/77 97 BiPAP 10/22/24 20:48 98 H 19 95 Nasal Cannula 2 10/22/24 20:30 98 H 19 124/68 94 Nasal Cannula 2 10/22/24 20:30 97 H 20 124/68 95 Nasal Cannula 2 10/22/24 20:30 98 H 19 95 Nasal Cannula 2 10/22/24 20:00 98 H 24 101/63 95 Nasal Cannula 2 10/22/24 20:00 Nasal Cannula 2 10/22/24 19:57 101 H 18 95 Nasal Cannula 2 10/22/24 19:30 103 H 22 99/70 L 94 Nasal Cannula 2 10/22/24 19:00 85 10/22/24 19:00 107 H 22 96 Nasal Cannula 2 10/22/24 19:00 103 H 22 119/68 96 Nasal Cannula 2 10/22/24 18:50 108 H 22 95 10/22/24 18:48 98/67 L 10/22/24 18:47 105 H 24 95 FiO2 10/23/24 06:06 10/23/24 06:00 10/23/24 05:48 10/23/24 05:33 10/23/24 05:30 10/23/24 05:09 10/23/24 05:00 10/23/24 05:00 10/23/24 04:57 10/23/24 04:31 10/23/24 04:30 10/23/24 04:09 10/23/24 03:30 10/23/24 03:30 30 10/23/24 03:06 10/23/24 03:03 10/23/24 03:00 10/23/24 02:30 10/23/24 02:30 10/23/24 02:09 10/23/24 01:30 10/23/24 01:00 10/23/24 01:00 10/23/24 00:30 30 10/23/24 00:00 30 10/23/24 00:00 10/23/24 00:00 10/22/24 23:37 30 10/22/24 23:30 30 10/22/24 23:09 30 10/22/24 23:00 30 10/22/24 22:33 30 10/22/24 22:30 30 10/22/24 21:42 30 10/22/24 21:34 30 10/22/24 21:30 30 10/22/24 21:21 10/22/24 21:00 10/22/24 20:48 10/22/24 20:30 10/22/24 20:30 10/22/24 20:30 10/22/24 20:00 10/22/24 20:00 10/22/24 19:57 10/22/24 19:30 10/22/24 19:00 10/22/24 19:00 10/22/24 19:00 10/22/24 18:50 10/22/24 18:48 10/22/24 18:47 Resident Activity Tracking Resident Involvement: Resident Care Provided Care Provided: Adult Hospital Medicine (7) HTN (hypertension) Hypertension type: unspecified Qualified Code(s): I10 - Essential (primary) hypertension
--- NOTE | 2024-10-23 08:02 | Hospitalist Progress Note ---
Date of Service October 23, 2024 Assessment & Plan (1) Septic shock: (2) Seizure-like activity: (3) Acute UTI: (4) Carotid stenosis, right: Plan 68-year-old woman with recently diagnosed UTI, CHF, T2DM, HTN, hypercholesterolemia, CAD, and chronic leg/back pain presenting to ED via EMS for seizure-like activity and confusion, initially starting 0300 the day of arrival and worsening in severity throughout the day. Throughout the course of both ED visits the day of admission, patient did not have leukocytosis, no gross electrolyte abnormalities, but lactate was found to be 2.9, pending repeat, and initial troponin was 58.0, 228 on repeat, pending repeat. Prolactin was 6.45, TSH 1.918. CXR did not reveal acute findings, and head CT was also WNL. The patient's EKG was sinus tachycardia but otherwise WNL. While in the ED, patient received 2L NSS, Zofran, morphine, lorazepam, Keppra, ketorolac, acetaminophen. Became progressively hypotensive despite IV fluids, broad spectrum antibiotics and pressors were required, she required ICU care Septic shock probably caused by pyelonephritis - bilateral hydroureteronephrosis without stones and cystitis seen on CT A/P, dysuria, turbid UA, urine culture with méndez-sensitive Klebsiella Metabolic acidosis. Persists, but improved CARLIN on CKD-3. Cr 1.45 on admission-->1.11-->1.2 Adequate UOP Myocardial demand ischemia due to septic shock - HS trop peaked at 317-->236 -off norepi since yesterday AM -change pip-tazo to ceftriaxone -blood cultures 10/21 pending, MRSA nares negative Acute hypercarbic respiratory failure -resolved with Bipap, naloxone by AM 10/22. On bipap overnight, probable sleep apnea Acute metabolic encephalopathy, seizure-like shaking likely rigors from infection. Brain MRI unremarkable EEG: Mildly abnormal study due to diffuse slowing at times, suggestive of global cortical dysfunction in setting of Encephalopathy. Not in status epilepticus. No epileptic discharges seen. -loaded with keppra in ED. started keppra 500 mg IV bid per neurologist recommendations -required precedex for agitation, olanzapine. improved no longer agitated still confused but less so PETTY focal (3mm) severe stenosis, no associated stroke -vascular surgery consulted - recommended neuro consult and vascular follow up if procedure thought to be beneficial, otherwise continue statin and antiplatelet follow up 6 months for surveillance -consult neurology - not addressed in recs, will discuss with neurologist tomorrow DM 2 - at home regimen Lantus 18 U SQ. Most recent A1C 08/2024 @ 7.8% - continue glargine, aspart, BG checks - pharmacy glycemic consult - adequate control Hepatic steatosis, hepatomegaly on CT - likely MAFLD, BMI 33 CAD/CHF Episode of rapid aflutter 10/23 H/o CAD with prior "extensive" stenting per cardiology note, follows with [facility] most recently 10/13/2024; Prior stents in the LAD x3, proximal RCA, and proximal posterolateral branch, presence of CHELSIE but extensive stenting so on DAPT still. - Cardio meds- Metoprolol, ASA, Plavix, spironolactone - hold spironolactone until hypotension resolved po normalized - resume ASA Plavix metoprolol - monitor for recurrence of flutter. No known history of this to my knowledge. May be triggered by sepsis, however, will arrange ambulatory monitor Replaced hypomagnesemia - mag normal today #Spinal stenosis, lumbar region- Does follow with ortho most recently 10/16/2024; Previously followed with neurology and PT. Pain medications as ordered. #OAB-oxybutynin, Solifenacin - held #HTN-metoprolol, isosorbide mononitrate - held #HLD-rosuvastatin #Restless leg syndrome-pramipexole held DVT ppx - enoxaparin 40 SQ daily Admission and Anticipated Discharge Date Admission Date: October 21, 2024 Subjective Lillian is awake today, not agitated and gives appropriate answers. No pain currently but having dysuria with riojas in place Says she feels short of breath, vitals/sats normal on room air Off precedex since this AM Physical Exam 2 Physical Exam: PHYSICAL EXAMINATION Last 24h vital signs reviewed, see documentation in flowsheet General: calm HEENT: Normocephalic, atraumatic, pupils round and equal, sclerae anicteric, no conjunctival injection, moist mucus membranes Lungs: Normal respiratory effort. Clear to auscultation bilaterally. No RRW Heart: Regular rate and rhythm, no murmurs. No JVD Abdomen: Soft, nontender, nondistended. Bowel sounds present. Extremities: Warm, dry, well-perfused. No extremity edema. Neuro: lethargic, oriented x self and can answer direct questions appropriately, still confused and not oriented to situation, face symmetric, moves 4 extremities well Psych: not agitated, lethargic Results & Data Results & Data Vital Signs (Past 12 Hours) Vital Signs Temp Pulse Resp BP Pulse Ox O2 Del Method O2 Flow Rate 10/23/24 07:30 110/68 10/23/24 07:30 72 13 97 BiPAP 10/23/24 07:23 97.5 F L 10/23/24 07:00 72 15 97 BiPAP 10/23/24 07:00 112/64 10/23/24 06:30 72 15 97 BiPAP 10/23/24 06:06 73 16 97 BiPAP 10/23/24 06:00 73 18 112/63 96 BiPAP 10/23/24 05:48 73 18 97 BiPAP 10/23/24 05:33 72 14 97 BiPAP 10/23/24 05:30 74 16 100/63 96 BiPAP 10/23/24 05:09 73 20 96 BiPAP 10/23/24 05:00 73 20 104/65 96 BiPAP 10/23/24 05:00 74 16 104/65 97 BiPAP 10/23/24 04:57 74 16 97 BiPAP 10/23/24 04:31 73 129/75 96 BiPAP 10/23/24 04:30 75 20 97 BiPAP 10/23/24 04:09 73 16 97 BiPAP 10/23/24 03:30 76 16 118/69 96 BiPAP 10/23/24 03:30 78 16 97 BiPAP 10/23/24 03:06 76 21 98 10/23/24 03:03 74 13 97 BiPAP 10/23/24 03:00 73 16 106/64 96 BiPAP 10/23/24 02:30 76 15 121/77 97 BiPAP 10/23/24 02:30 76 15 97 BiPAP 10/23/24 02:09 76 15 98 BiPAP 10/23/24 01:30 76 18 98 BiPAP 10/23/24 01:00 77 17 97 BiPAP 10/23/24 01:00 78 18 111/71 97 BiPAP 10/23/24 00:30 79 16 97 BiPAP 10/23/24 00:00 81 16 105/63 97 BiPAP 10/23/24 00:00 81 15 97 BiPAP 10/23/24 00:00 81 10/22/24 23:37 85 23 98 10/22/24 23:30 83 16 123/79 97 BiPAP 10/22/24 23:09 85 16 97 BiPAP 10/22/24 23:00 97.9 F 86 16 97 BiPAP 10/22/24 22:33 87 17 97 BiPAP 10/22/24 22:30 87 15 132/80 97 BiPAP 10/22/24 21:42 90 19 97 BiPAP 10/22/24 21:34 96 H 26 H 98 10/22/24 21:30 84 16 125/75 97 BiPAP 10/22/24 21:21 92 H 14 97 BiPAP 10/22/24 21:00 92 H 17 118/77 97 BiPAP 10/22/24 20:48 98 H 19 95 Nasal Cannula 2 10/22/24 20:30 98 H 19 124/68 94 Nasal Cannula 2 10/22/24 20:30 97 H 20 124/68 95 Nasal Cannula 2 10/22/24 20:30 98 H 19 95 Nasal Cannula 2 FiO2 10/23/24 07:30 10/23/24 07:30 10/23/24 07:23 10/23/24 07:00 10/23/24 07:00 10/23/24 06:30 10/23/24 06:06 10/23/24 06:00 10/23/24 05:48 30 10/23/24 05:33 30 10/23/24 05:30 30 10/23/24 05:09 30 10/23/24 05:00 30 10/23/24 05:00 30 10/23/24 04:57 30 10/23/24 04:31 30 10/23/24 04:30 30 10/23/24 04:09 30 10/23/24 03:30 30 10/23/24 03:30 30 10/23/24 03:06 10/23/24 03:03 10/23/24 03:00 30 10/23/24 02:30 30 10/23/24 02:30 30 10/23/24 02:09 30 10/23/24 01:30 30 10/23/24 01:00 30 10/23/24 01:00 30 10/23/24 00:30 30 10/23/24 00:00 30 10/23/24 00:00 30 10/23/24 00:00 10/22/24 23:37 30 10/22/24 23:30 30 10/22/24 23:09 30 10/22/24 23:00 30 10/22/24 22:33 30 10/22/24 22:30 30 10/22/24 21:42 30 10/22/24 21:34 30 10/22/24 21:30 30 10/22/24 21:21 10/22/24 21:00 10/22/24 20:48 10/22/24 20:30 10/22/24 20:30 10/22/24 20:30 Laboratory Results 10/23/24 04:47 10/23/24 04:47 Diagnostic Findings 10/23/24 04:47 10/23/24 04:47 PG Care Time/CCT Total # of Minutes Spent Total Time Spent with Patient: Total time spent is greater than 50% in coordination of care (as documented) at patient's floor/unit and/or counseling patient: Coding Level of Care Code 30404 SUB INP/OBS CARE 3/50MIN Diagnoses Septic shock A41.9; R65.21 Seizure-like activity R56.9 Acute UTI N39.0 Carotid stenosis, right I65.21
--- NOTE | 2024-10-23 09:36 | Billing Data ---
Date of Service October 23, 2024 Coding Level of Care Code INP/OBS EV SAME DAY LV 3,85MIN
--- NOTE | 2024-10-23 10:20 | Neurology Consultation ---
Date of Consultation October 23, 2024 Assessment & Plan (1) Encephalopathy: History of Present Illness Attending Physician: Merry Kennedy MD History of Present Illness S: pt consulted for rigor like shaking at times. pt initially came in for seizure like event. EEG yesterday with no seizure activities. pt with respiratory and septic shock picture with some improvement today. mri brain negative. this morning still drowsy and nonverbal, no abnormal movements noted. pt now off pressors. chart reviewed. ICU note history: 68yo female brought back to the ER for possible seizure like activity in setting of UTI, encephalopathic, acidotic, hypotensive requiring vasopressors. To update: [[Neuro - Encephalopathy, possible seizure-like activity, hx lumbar stenosis with radicular symptoms CAM ICU: [facility] - Possible rigors in setting of pyelonephritis/septic shock vs seizure like activity vs. rigors vs. other - head CT negative on arrival for LVO, hemorrhage, or mass - prior CT neck from March 2024 showing severe R IJV stenosis, seen again b/l on doppler study today 10/22/24: extensive atherosclerotic plaque within proximal b/l ICAs, 50-69% on US of prox PETTY but likely underestimated based on March 2024 CTA: "Atherosclerotic plaque and calcifications of the right carotid bulb and proximal ICA. Causes focal severe stenosis for a 3 mm segment." - Sedation with versed, precedex, and haldol for agitation afternoon 10/22/24, MAP persisting >65 in evening -> reordered norepinephrine for support - Once stabilized from acid base status, respiratory status, and hemodynamics obtain MRI with and without contrast- eval for CVA, any parenchymal involvement suggestive of encephalitis - EEG performed: "Mildly abnormal study due to diffuse slowing at times, suggestive of global cortical dysfunction in setting of Encephalopathy. Not in status epilepticus. No epileptic discharges seen." - Keppra- loaded in ER with 2g- hold on followup dose at this time- consider if needed 500-1000 mg IV BID - Encephalopathy more likely in setting of severe septic shock due to complicated UTI, however possible as above - May also have component of hypercarbia in setting of obstruction with encephalopathy - Consider LP if remains elusive Cardiac - Shock- septic likely urosepsis, Elevated HsCTNI but downtrending, likely in setting of demand ischemia PMHx HTN, HFpEF, HLD, CAD, stents to LAD x3, proximal RCA, PDA, 2017 mid RCA- hold DAPT until evaluation for possible LP - Hypotensive mostly but slightly HTsive in later afternoon; tachycardic, downtrending lactate - Resuscitated with 4L IVF, volume responsiveness was reported, requiring vasopressors earlier in day but no longer requiring vasopressors as her MAP has been mainly >65, levophed reordered evening of 10/22/24 for sustained MAP<65 - Bedside POCUS with adequate squeeze of ventricles and septum, flattened IVC and hyperdynamic LV, no pericardial effusion- bolus infusing as above Allergies Allergy/AdvReac Type Severity Reaction Status Date / Time bee venom protein (honey bee) Allergy Severe DIFFICULTY Verified 10/13/24 11:32 BREATHING/HIVES/ITCHY Home Medications Medication Instructions Recorded Confirmed Type aspirin 81 mg tablet,delayed 81 mg PO DAILY 07/06/20 10/21/24 History release (Adult Low Dose Aspirin) blood sugar diagnostic (OneTouch #100 ea 04/26/23 10/13/24 Rx Verio test strips) lancets 33 gauge (OneTouch Delica #100 ea 04/26/23 10/13/24 Rx Plus Lancet) pen needle, diabetic 32 gauge x #100 ea 04/26/23 10/13/24 Rx 5/32" (Pen Needle) spironolactone 100 mg tablet 50 mg (1/2 x 100 mg) PO QAM #30 04/26/23 10/21/24 Rx tabs pramipexole 0.25 mg tablet 0.5 mg PO BID 04/19/24 10/21/24 History isosorbide mononitrate 30 mg 30 mg PO QAM 08/10/24 10/21/24 History tablet,extended release 24 hr metoprolol succinate 200 mg 200 mg PO QAM 08/10/24 10/21/24 History tablet,extended release 24 hr acetaminophen 325 mg tablet 650 mg (2 x 325 mg) PO Q4H PRN #0 08/13/24 10/21/24 Rx tabs rosuvastatin 20 mg tablet 20 mg PO QAM #90 tabs 09/26/24 10/21/24 Rx clopidogrel 75 mg tablet (Plavix) 75 mg PO DAILY #90 tabs 10/07/24 10/21/24 Rx cephalexin 500 mg capsule 500 mg PO BID 7 days #14 caps 10/21/24 10/21/24 Rx insulin glargine 100 unit/mL 18 unit subcut UD 10/21/24 10/21/24 History subcutaneous solution (Lantus U-100 Insulin) oxybutynin chloride 10 mg 10 mg PO DAILY 10/21/24 10/21/24 History tablet,extended release 24 hr solifenacin 10 mg tablet 10 mg PO DAILY 10/21/24 10/21/24 History Patient History Medical History Acute UTI Surgical History History of lumbar surgery L4-5 discectomy Social History Smoking Status: Former smoker Tobacco Type: Cigarettes Smoking End Date: unknown; Hx Alcohol Use: No Hx Substance Use: No Preferred Language: Luxembourgish Communication Ability: Unable Visual Impairment: Limited Hearing Ability: Hard of Hearing Moisture Tester Required: No Beliefs That Will Affect Care: None marital status: Current Living Situation: Spouse current occupational status: retired Feels Safe at Home: Yes Assistive Devices: Cane and Walker Exam (Neuro) Physical Exam: HEENT: normocephalic grossly Neuro: Mental: stuporous with some responses to noxious stimulations. CN: pupils 2 mm b/l, reacctive b/l, Full EOM appears to be full with intact VOR Motor: No abnormal movements, normal tone Sens: grimmace to pain b/l. DTR: 1+ sym b/l. toes down b/l. Impression: 68 yo female with septic shock, likely urosepsis with respiratory distress and cardiac distress. No clear suggestion of seizures and EEG without epileptic activity. Pt still encephalopathic likely due to sepsis and respiratory/cardiac dsyfunction. MRI brain negative. Recommendations: ok to start keppra 500mg IV bid as preventive measure as she is high risk for seizure continue tx for sepsis and medical managements for multi-organ dysfunction. call again if new question. Chart reviewed I have spent more than 50% neurological evaluation and coordinating care with patient's treatment team. Total time spent (including chart review and coordination of care): 45 min (this includes chart review). Results & Data Vital Signs (Past 12 Hours) Vital Signs Temp Pulse Resp BP Pulse Ox O2 Del Method FiO2 10/23/24 09:15 73 13 92 10/23/24 09:00 112/68 10/23/24 08:57 73 12 93 10/23/24 08:30 119/72 10/23/24 08:30 75 13 97 10/23/24 08:05 74 10/23/24 08:00 74 98 10/23/24 08:00 123/71 10/23/24 07:59 BiPAP 30 10/23/24 07:30 110/68 10/23/24 07:30 72 13 97 BiPAP 10/23/24 07:23 36.4 C L 10/23/24 07:00 72 15 97 BiPAP 10/23/24 07:00 112/64 10/23/24 06:30 72 15 97 BiPAP 10/23/24 06:06 73 16 97 BiPAP 30 10/23/24 06:00 73 18 112/63 96 BiPAP 30 10/23/24 05:48 73 18 97 BiPAP 30 10/23/24 05:33 72 14 97 BiPAP 30 10/23/24 05:30 74 16 100/63 96 BiPAP 30 10/23/24 05:09 73 20 96 BiPAP 30 10/23/24 05:00 73 20 104/65 96 BiPAP 30 10/23/24 05:00 74 16 104/65 97 BiPAP 30 10/23/24 04:57 74 16 97 BiPAP 30 10/23/24 04:31 73 129/75 96 BiPAP 30 10/23/24 04:30 75 20 97 BiPAP 30 10/23/24 04:09 73 16 97 BiPAP 30 10/23/24 03:30 76 16 118/69 96 BiPAP 30 10/23/24 03:30 78 16 97 BiPAP 30 10/23/24 03:06 76 21 98 30 10/23/24 03:03 74 13 97 BiPAP 30 10/23/24 03:00 73 16 106/64 96 BiPAP 30 10/23/24 02:30 76 15 121/77 97 BiPAP 30 10/23/24 02:30 76 15 97 BiPAP 30 10/23/24 02:09 76 15 98 BiPAP 30 10/23/24 01:30 76 18 98 BiPAP 30 10/23/24 01:00 77 17 97 BiPAP 30 10/23/24 01:00 78 18 111/71 97 BiPAP 30 10/23/24 00:30 79 16 97 BiPAP 30 10/23/24 00:00 81 16 105/63 97 BiPAP 30 10/23/24 00:00 81 15 97 BiPAP 30 10/23/24 00:00 81 10/22/24 23:37 85 23 98 30 10/22/24 23:30 83 16 123/79 97 BiPAP 30 10/22/24 23:09 85 16 97 BiPAP 30 10/22/24 23:00 36.6 C 86 16 97 BiPAP 30 10/22/24 22:33 87 17 97 BiPAP 30 10/22/24 22:30 87 15 132/80 97 BiPAP 30 PG Care Time/CCT Total # of Minutes Spent Total Time Spent with Patient: Total time spent is greater than 50% in coordination of care (as documented) at patient's floor/unit and/or counseling patient: Coding Level of Care Code 29358 IN/OBS CONSULT LVL 3,45M Diagnoses Encephalopathy, unspecified type G93.40 Encephalopathy type: unspecified encephalopathy (1) Encephalopathy Encephalopathy type: unspecified encephalopathy Qualified Code(s): G93.40 - Encephalopathy, unspecified
[2024-10-23] MEDS: cefTRIAXone SODIUM 2,000 MG/50 ML BAG IV SCH (10:39)
[2024-10-23] MEDS: OLANZapine ZYDIS 5 MG ORALLY DIS. TAB PO ONE (10:39)
--- NOTE | 2024-10-23 13:38 | Electrocardiogram Report ---
Test Reason : Blood Pressure : */* mmHG Vent. Rate : 117 BPM Atrial Rate : 117 BPM P-R Int : 154 ms QRS Dur : 76 ms QT Int : 328 ms P-R-T Axes : 54 23 33 degrees QTcB Int : 457 ms Poor data quality, interpretation may be adversely affected Sinus tachycardia Otherwise normal ECG When compared with ECG of 21-Oct-2024 16:40, Premature ventricular complexes are now Present Inverted T waves have replaced nonspecific T wave abnormality in Inferior leads Confirmed by Carlos Enrique Mata ([id number]) on 10/23/2024 1:38:24 PM Referred By: REFERRED SELF Confirmed By: Carlos Enrique Mata
[2024-10-23] MEDS: LABETALOL HCL IV 5 MG/ML 20ML IV STA (13:50)
[2024-10-23] MEDS: HALOPERIDOL LACTATE 5 MG/ML 1 ML VIAL IV STA (14:37)
[2024-10-23] MEDS: METOPROLOL SUCC 50MG EXT REL TAB PO STA ×2 (14:45→19:37)
[2024-10-23] MEDS: PRAMIPEXOLE DIHYDROCHLO 0.5 MG TAB PO SCH (15:08)
--- NOTE | 2024-10-23 17:06 | XCELERA ---
[id number]
[2024-10-23] MEDS: levETIRAcetam 500 MG/5 ML VIAL IV SCH (17:45)
[2024-10-23] MEDS: LACTATED RINGER'S 1,000 ML IV SCH (20:50)
--- NOTE | 2024-10-23 21:08 | Communication Note ---
Date of Service: October 23, 2024 Pt with continued tachycardia. SBP 129mmHg. HR 126bpm. 100mg Metoprolol Succinate PO given her attending. Notified at 1999 that patient is febrile to 39.3C. With BB she is now hypotensive with MAP 50-55. On exam she does appear dry. Will give fluid challenge via LR 500cc over 15-30 minutes. UOP has been adequate. Will need to consider reinitation of vasoactives if continued hypotension. APAP PRN fever. Coding Level of Care Code None
[2024-10-23] MEDS: NOREPINEPHRINE/D5W 4 MG/250 ML PLCT IV SCH (21:15)
[2024-10-23] MEDS ORDERED: STAT IV Infusion **Titration per Protocol STA (21:19)
[2024-10-23] MEDS ORDERED: Nursing to Pharmacy Communication SCH (21:30)
[2024-10-23] MEDS: NOREPINEPHRINE/D5W 4 MG/250 ML IV ONE (21:33)
[2024-10-23] MEDS: SODIUM CHLORIDE 0.9% 500 ML IV SCH (21:55)
[2024-10-24 04:46] LABS: Hematocrit (blood only) 30.5 % (37.0-47.0); Hemoglobin 10.2 g/dl (12.0-16.0); Mean Corpuscular Hemoglobin 27.2 pg (25.0-34.0); Mean Corpuscular Hgb Conc 33.4 g/dL (32.0-36.0); Mean Corpuscular Volume 81.3 fL (80.0-100.0); Mean Platelet Volume 10.8 fL (9.4-12.4); Platelet Count 155 K/uL (130-400); RDW Coefficient of Variation 15.8 % (11.5-14.5); RDW Standard Deviation 47.3 fL (36.4-46.3); Red Blood Count 3.75 M/uL (4.20-5.40); White Blood Count 10.02 K/ul (4.8-10.8)
[2024-10-24 05:06] LABS: BUN Creatinine Ratio 27.2 (10-20); Calcium 7.8 mg/dl (8.6-10.3); Creatinine Clr Calc Pharmacy 55.6 ml/min; Magnesium 2.1 mg/dl (1.7-2.4); Phosphorus 2.3 mg/dl (2.5-4.9); Potassium 3.5 mmol/L (3.5-5.1)
--- NOTE | 2024-10-24 07:00 | Critical Care Progress Note ---
Date of Service October 24, 2024 Assessment & Plan (1) Seizure-like activity: (2) Pyelonephritis: (3) Septic shock: (4) Encephalopathy: (5) Lumbar stenosis with neurogenic claudication: (6) CHF (congestive heart failure): (7) HTN (hypertension): (8) Hypercholesteremia: (9) Acute UTI: (10) Carotid stenosis, right: Plan Reason Critically Ill: 68yo female brought back to the ER for possible seizure like activity in setting of UTI, encephalopathic, acidotic, hypotensive requiring vasopressors. TO UPDATE: Neuro - Encephalopathy, possible seizure-like activity, hx lumbar stenosis with radicular symptoms CAM ICU: [facility] - Possible rigors in setting of pyelonephritis/septic shock vs seizure like activity vs. rigors vs. other - head CT negative on arrival for LVO, hemorrhage, or mass - prior CT neck from March 2024 showing severe R IJV stenosis, seen again b/l on doppler study today 10/22/24: extensive atherosclerotic plaque within proximal b/l ICAs, 50-69% on US of prox PETTY but likely underestimated based on March 2024 CTA: "Atherosclerotic plaque and calcifications of the right carotid bulb and proximal ICA. Causes focal severe stenosis for a 3 mm segment." -Reviewed neurology consult -Keppra 500 mg twice daily: Prophylactic while in hospital - home pramipexole dose given PO on 10/23/24 Cardiac - Shock- septic likely urosepsis, resolved - transient run of HoTN overnight requiring vasopressors -> resolved PMHx HTN, HFpEF, HLD, CAD, stents to LAD x3, proximal RCA, PDA, 2017 mid RCA- Hypertension: metoprolol at 100 mg tartrate twice daily, transition to resume home beta-blockade Respiratory - Respiratory failure- hypercarbic, resolving; satting low-mid 90s on room air -Resolved GI - No acute needs at this time, taking pills - hx hepatic steatosis RENAL/LYTES - acute kidney injury resolved - As above -Riojas per nursing protocol ENDO - DMII - ICU hyperglycemic protocol - TSH wnl HEME - No acute needs ID - Septic Shock- UTI complicated- pyelonephritis - Pansensitive Klebsiella - Continue ceftriaxone IV for additional 24 hours then transition to Augmentin based on pansensitive Klebsiella LINES/IV ACCESS - CVL Right femoral vein, A-line LT wrist, Riojas Discontinue femoral line and A-line DVT PROPHYLAXIS - SCDs, SQ Lovenox DISPO: Stable for downgrade out of ICU. Admission and Anticipated Discharge Date Admission Date: October 21, 2024 Supervising Physician Co-Signing Physician Notes Dr. Lee was resident physician during care of patient. I separately evaluated patient for salcedo portions of the history and the exam. I was present during the critical portion of medical decision making, and I discussed the case with the resident. I generally agree with the findings and plan. Overnight patient required short period of vasoactive medication administration after administering beta-blockade, however that was short-lived and patient's remained hemodynamically stable for several hours. This was also in the setting of patient developing fever. Believe there is still aspects of adrenergic overdrive given the patient's sepsis. Ultimately patient's critical care needs have resolved and she is stable for downgrade out of the ICU. Restarting metoprolol at 100 mg tartrate twice daily which is half her normal home dose and different formulation Subjective Patient was seen and evaluated at bedside. Continues to improve in mentation, was able to successfully eat clear liquids for breakfast. Partially oriented, knows name, , and that she is in hospital but unsure why she is here. Denied any particular pain or discomfort at time of encounter. Physical Exam Physical Exam: General: A&Ox2-3 to name, , and hospital but unsure why here, not appearing in acute distress HEENT: NC/AT; PERRL b/l Lungs: Clear to auscultation b/l, no wheezes/rales/rhonchi Heart: RRR, no murmurs/rubs/gallops GI/abd: Soft, +BS, nontender to palpation Ext: 4/5 strength in all extremities, : orange urine present in riojas bag Neuro: no facial droop, speech slow but intact, following simple commands to wiggle fingers and toes Results & Data Results & Data Vital Signs (Past 12 Hours) Vital Signs Temp Pulse Resp BP Pulse Ox O2 Del Method O2 Flow Rate 10/24/24 06:00 113/61 10/24/24 06:00 94 H 15 97 10/24/24 05:33 98 H 24 97 10/24/24 05:03 93 H 22 96 10/24/24 05:00 102/54 L 10/24/24 04:48 95 H 21 95 10/24/24 04:15 95 H 24 94 Nasal Cannula 2 10/24/24 04:03 93 H 22 91 10/24/24 04:00 102/58 L 10/24/24 04:00 102/58 L 10/24/24 03:48 36.6 C 100 H 24 93 Room Air 10/24/24 03:12 82 14 98 10/24/24 03:00 84 14 98 10/24/24 02:42 79 16 98 10/24/24 02:09 82 14 98 10/24/24 02:00 131/65 10/24/24 01:48 84 15 97 10/24/24 01:01 97/50 L 10/24/24 01:01 97/50 L 10/24/24 01:00 86 17 97 10/24/24 00:33 81 20 97 10/24/24 00:00 118/68 10/23/24 23:57 85 14 97 10/23/24 23:54 89 10/23/24 23:40 90 17 97 10/23/24 23:30 88 16 97 10/23/24 23:06 92 H 24 96 10/23/24 23:00 108/55 L 10/23/24 22:48 92 H 15 96 10/23/24 22:45 93 H 15 96 10/23/24 22:30 101 H 20 96 10/23/24 22:21 95 H 19 96 10/23/24 22:03 103 H 19 96 10/23/24 22:01 111/55 L 10/23/24 22:01 111/55 L 10/23/24 21:57 103 H 15 96 10/23/24 21:42 104 H 22 96 10/23/24 21:33 105 H 17 96 10/23/24 21:21 100 H 27 H 96 10/23/24 21:15 102 H 18 95 10/23/24 21:00 102 H 34 H 95 10/23/24 20:51 104 H 25 H 94 10/23/24 20:50 80/50 L 10/23/24 20:39 115 H 22 95 10/23/24 20:30 100/59 L 10/23/24 20:30 100/59 L 10/23/24 20:27 38.2 C H 116 H 23 95 10/23/24 20:24 115 H 21 95 10/23/24 20:12 120 H 23 95 10/23/24 20:03 120 H 20 94 10/23/24 20:00 Nasal Cannula 3 10/23/24 20:00 104/59 L 10/23/24 20:00 104/59 L 10/23/24 19:54 123 H 18 94 10/23/24 19:51 121 H 23 94 10/23/24 19:45 121 H 22 91 Nasal Cannula 3 10/23/24 19:36 127 H 27 H 91 10/23/24 19:30 39.3 C H 129/59 L Nasal Cannula 3 10/23/24 19:15 128 H 26 H 90 10/23/24 19:00 117/65 10/23/24 19:00 117/65 10/23/24 19:00 125 H 22 90 FiO2 10/24/24 06:00 10/24/24 06:00 10/24/24 05:33 10/24/24 05:03 10/24/24 05:00 10/24/24 04:48 10/24/24 04:15 10/24/24 04:03 10/24/24 04:00 10/24/24 04:00 10/24/24 03:48 10/24/24 03:12 10/24/24 03:00 10/24/24 02:42 10/24/24 02:09 10/24/24 02:00 10/24/24 01:48 10/24/24 01:01 10/24/24 01:01 10/24/24 01:00 10/24/24 00:33 10/24/24 00:00 10/23/24 23:57 10/23/24 23:54 10/23/24 23:40 30 10/23/24 23:30 10/23/24 23:06 10/23/24 23:00 10/23/24 22:48 10/23/24 22:45 10/23/24 22:30 10/23/24 22:21 10/23/24 22:03 10/23/24 22:01 10/23/24 22:01 10/23/24 21:57 10/23/24 21:42 10/23/24 21:33 10/23/24 21:21 10/23/24 21:15 10/23/24 21:00 10/23/24 20:51 10/23/24 20:50 10/23/24 20:39 10/23/24 20:30 10/23/24 20:30 10/23/24 20:27 10/23/24 20:24 10/23/24 20:12 10/23/24 20:03 10/23/24 20:00 10/23/24 20:00 10/23/24 20:00 10/23/24 19:54 10/23/24 19:51 10/23/24 19:45 10/23/24 19:36 10/23/24 19:30 10/23/24 19:15 10/23/24 19:00 10/23/24 19:00 10/23/24 19:00 Resident Activity Tracking Resident Involvement: Resident Care Provided Care Provided: Adult Hospital Medicine (4) Encephalopathy Encephalopathy type: unspecified encephalopathy Qualified Code(s): G93.40 - Encephalopathy, unspecified (7) HTN (hypertension) Hypertension type: unspecified Qualified Code(s): I10 - Essential (primary) hypertension
--- NOTE | 2024-10-24 07:43 | Billing Data ---
Date of Service October 24, 2024 Coding Level of Care Code 88812 SUB INP/OBS CARE MIN
--- NOTE | 2024-10-24 07:49 | Hospitalist Progress Note ---
Date of Service October 24, 2024 Assessment & Plan (1) Septic shock: (2) Seizure-like activity: (3) Acute UTI: (4) Carotid stenosis, right: Plan 68-year-old woman with recently diagnosed UTI, CHF, T2DM, HTN, hypercholesterolemia, CAD, and chronic leg/back pain presenting to ED via EMS for seizure-like activity and confusion, initially starting 0300 the day of arrival and worsening in severity throughout the day. Throughout the course of both ED visits the day of admission, patient did not have leukocytosis, no gross electrolyte abnormalities, but lactate was found to be 2.9, pending repeat, and initial troponin was 58.0, 228 on repeat, pending repeat. Prolactin was 6.45, TSH 1.918. CXR did not reveal acute findings, and head CT was also WNL. The patient's EKG was sinus tachycardia but otherwise WNL. While in the ED, patient received 2L NSS, Zofran, morphine, lorazepam, Keppra, ketorolac, acetaminophen. Became progressively hypotensive despite IV fluids, broad spectrum antibiotics and pressors were required, she required ICU care Septic shock probably caused by pyelonephritis - bilateral hydroureteronephrosis without stones and cystitis seen on CT A/P, dysuria, turbid UA, urine culture with méndez-sensitive Klebsiella, blood Cx NGTD at 48h Metabolic acidosis, lactic acidosis both resolved CARLIN on CKD-3. Cr 1.45 on admission-->1.14 today Adequate UOP Myocardial demand ischemia due to septic shock - HS trop peaked at 317-->236. TTE 10/23 limited quality but nl LV function, mild conc LVH, no significant valvular disease -off norepi 10/22, back on overnight 10/23-10/24 after metoprolol po for tachycardia, hypotension resolved -changed pip-tazo to ceftriaxone - continue IV for now since still acutely ill and not reliable with po -blood cultures 10/21 NGTD, MRSA nares negative -fever >102 evening of 10/23 - might be her pyelo, abx were narrowed 10/23, will check CXR is at risk for aspiration and desatted at night --> unchanged with pulmonary vascular congestions and stranding opacity in bases Acute hypercarbic respiratory failure -resolved with Bipap, naloxone AM 10/22. -needed bipap again overnight for desat on nc, probable sleep apnea -continue nocturnal cpap/bipap -later when more alert get overnight oximetry study Acute metabolic encephalopathy, seizure-like shaking likely rigors from infection. Brain MRI unremarkable EEG: Mildly abnormal study due to diffuse slowing at times, suggestive of global cortical dysfunction in setting of Encephalopathy. Not in status epilepticus. No epileptic discharges seen. -loaded with keppra in ED. started keppra 500 mg IV bid on 10/23 per neurologist recommendations -required precedex for agitation, olanzapine. improved no longer agitated still confused but less so -slowly improving PETTY focal (3mm) severe stenosis, no associated stroke -vascular surgery consulted - recommended neuro consult and vascular follow up if procedure thought to be beneficial, otherwise continue statin and antiplatelet follow up 6 months for surveillance -consulted neurology - not addressed in recs, discussed with Dr. Beltran he did not think the PETTY stenosis was related to her encephalopathy presentations DM 2 - at home regimen Lantus 18 U SQ. Most recent A1C 08/2024 @ 7.8% - continue glargine, aspart, BG checks - pharmacy glycemic consult - BG controlled at goal Hepatic steatosis, hepatomegaly on CT - likely MAFLD, BMI 33 CAD/CHF Episode of rapid aflutter 10/23 H/o CAD with prior "extensive" stenting per cardiology note, follows with [facility] most recently 10/13/2024; Prior stents in the LAD x3, proximal RCA, and proximal posterolateral branch, presence of CHELSIE but extensive stenting so on DAPT still. - Cardio meds- Metoprolol, ASA, Plavix, spironolactone - hold spironolactone until hypotension resolved po normalized - metoprolol held for recurrent hypotension, ASA/Plavix resumed - monitor for recurrence of flutter. No known history of this to my knowledge. May be triggered by sepsis, however, will arrange ambulatory monitor Replaced hypomagnesemia - mag normal 10/24 #Spinal stenosis, lumbar region- Does follow with ortho most recently 10/16/2024; Previously followed with neurology and PT. Pain medications as ordered. #OAB-oxybutynin, Solifenacin - held #HTN-metoprolol, isosorbide mononitrate - held #HLD-rosuvastatin #Restless leg syndrome-pramipexole held DVT ppx - enoxaparin 40 SQ daily discussed with cotton sampler, ICU nurse transferring to PCU Admission and Anticipated Discharge Date Admission Date: October 21, 2024 Subjective Fever to >102 last night 1930, tachycardic (sinus) then hypotensive following metoprolol 200 mg. Fluid bolus given, norepi restarted desatted to 88% on nasal cannula placed on Bipap in the night Mental status slowly improving and ate jello for breakfast. Wakes up to stimulation then back to sleep Says she is in hopsital cannot say why Denied pain and shortness of breath Physical Exam 2 Physical Exam: PHYSICAL EXAMINATION Last 24h vital signs reviewed, see documentation in flowsheet General: was sleeping HEENT: Normocephalic, atraumatic, pupils round and equal, sclerae anicteric, no conjunctival injection, moist mucus membranes Lungs: Normal respiratory effort. Clear to auscultation bilaterally anteriorly. No RRW Heart: Regular rate and rhythm, no murmurs. No JVD Abdomen: Soft, nontender, nondistended. Bowel sounds present. Extremities: Warm, dry, well-perfused. No extremity edema. [place] urine in riojas Neuro: lethargic, oriented x self and hospital not to situation, face symmetric, moves 4 extremities well, facing baster jumpbasting 4/5 symmetric and did not follow commands for LE strength Psych: not agitated, lethargic Results & Data Results & Data Vital Signs (Past 12 Hours) Vital Signs Temp Pulse Resp BP Pulse Ox O2 Del Method O2 Flow Rate 10/24/24 06:00 113/61 10/24/24 06:00 94 H 15 97 10/24/24 05:33 98 H 24 97 10/24/24 05:03 93 H 22 96 10/24/24 05:00 102/54 L 10/24/24 04:48 95 H 21 95 10/24/24 04:15 95 H 24 94 Nasal Cannula 2 10/24/24 04:03 93 H 22 91 10/24/24 04:00 102/58 L 10/24/24 04:00 102/58 L 10/24/24 03:48 97.9 F 100 H 24 93 Room Air 10/24/24 03:12 82 14 98 10/24/24 03:00 84 14 98 10/24/24 02:42 79 16 98 10/24/24 02:09 82 14 98 10/24/24 02:00 131/65 10/24/24 01:48 84 15 97 10/24/24 01:01 97/50 L 10/24/24 01:01 97/50 L 10/24/24 01:00 86 17 97 10/24/24 00:33 81 20 97 10/24/24 00:00 118/68 10/23/24 23:57 85 14 97 10/23/24 23:54 89 10/23/24 23:40 90 17 97 10/23/24 23:30 88 16 97 10/23/24 23:06 92 H 24 96 10/23/24 23:00 108/55 L 10/23/24 22:48 92 H 15 96 10/23/24 22:45 93 H 15 96 10/23/24 22:30 101 H 20 96 10/23/24 22:21 95 H 19 96 10/23/24 22:03 103 H 19 96 10/23/24 22:01 111/55 L 10/23/24 22:01 111/55 L 10/23/24 21:57 103 H 15 96 10/23/24 21:42 104 H 22 96 10/23/24 21:33 105 H 17 96 10/23/24 21:21 100 H 27 H 96 10/23/24 21:15 102 H 18 95 10/23/24 21:00 102 H 34 H 95 10/23/24 20:51 104 H 25 H 94 10/23/24 20:50 80/50 L 10/23/24 20:39 115 H 22 95 10/23/24 20:30 100/59 L 10/23/24 20:30 100/59 L 10/23/24 20:27 100.8 F H 116 H 23 95 10/23/24 20:24 115 H 21 95 10/23/24 20:12 120 H 23 95 10/23/24 20:03 120 H 20 94 10/23/24 20:00 Nasal Cannula 3 10/23/24 20:00 104/59 L 10/23/24 20:00 104/59 L 10/23/24 19:54 123 H 18 94 10/23/24 19:51 121 H 23 94 10/23/24 19:45 121 H 22 91 Nasal Cannula 3 FiO2 10/24/24 06:00 10/24/24 06:00 10/24/24 05:33 10/24/24 05:03 10/24/24 05:00 10/24/24 04:48 10/24/24 04:15 10/24/24 04:03 10/24/24 04:00 10/24/24 04:00 10/24/24 03:48 10/24/24 03:12 10/24/24 03:00 10/24/24 02:42 10/24/24 02:09 10/24/24 02:00 10/24/24 01:48 10/24/24 01:01 10/24/24 01:01 10/24/24 01:00 10/24/24 00:33 10/24/24 00:00 10/23/24 23:57 10/23/24 23:54 10/23/24 23:40 30 10/23/24 23:30 10/23/24 23:06 10/23/24 23:00 10/23/24 22:48 10/23/24 22:45 10/23/24 22:30 10/23/24 22:21 10/23/24 22:03 10/23/24 22:01 10/23/24 22:01 10/23/24 21:57 10/23/24 21:42 10/23/24 21:33 10/23/24 21:21 10/23/24 21:15 10/23/24 21:00 10/23/24 20:51 10/23/24 20:50 10/23/24 20:39 10/23/24 20:30 10/23/24 20:30 10/23/24 20:27 10/23/24 20:24 10/23/24 20:12 10/23/24 20:03 10/23/24 20:00 10/23/24 20:00 10/23/24 20:00 10/23/24 19:54 10/23/24 19:51 10/23/24 19:45 Laboratory Results 10/24/24 04:09 10/24/24 04:09 mag 2.1, phos slightly low BG reviewed, at goal PG Care Time/CCT Total # of Minutes Spent Total Time Spent with Patient: Total time spent is greater than 50% in coordination of care (as documented) at patient's floor/unit and/or counseling patient: Coding Level of Care Code 32261 SUB INP/OBS CARE 350MIN Diagnoses Septic shock A41.9; R65.21 Seizure-like activity R56.9 Acute UTI N39.0 Carotid stenosis, right I65.21
--- NOTE | 2024-10-24 08:08 | XRay Report ---
XR chest 1V portable CLINICAL HISTORY: recurrent fever, hypoxia COMPARISON STUDY: 10/21/2024 FINDINGS: There is stable cardiomegaly with pulmonary vascular congestion. Stable stranding opacity i n the lung bases. No pneumothorax. IMPRESSION: Stable exam. ACT 112: Negative or not required by law. Electronically signed by: Eliecer Amaral M.D. 10/24/2024 8:06 AM
[2024-10-24] MEDS ORDERED: METOPROLOL SUCC 50MG EXT REL TAB PO SCH (09:00)
--- NOTE | 2024-10-24 09:52 | Neurology Progress Note ---
Date of Service October 24, 2024 Assessment & Plan (1) Altered mental status: Admission and Anticipated Discharge Date Admission Date: October 21, 2024 Subjective pt awake and talking and communicating well. Results & Data Vital Signs (Past 12 Hours) Vital Signs Temp Pulse Resp BP Pulse Ox O2 Del Method O2 Flow Rate 10/24/24 08:12 36.8 C 10/24/24 08:00 136/73 10/24/24 08:00 103 H 20 96 Nasal Cannula 2 10/24/24 07:01 123/85 10/24/24 06:54 97 H 16 97 10/24/24 06:00 113/61 10/24/24 06:00 94 H 15 97 10/24/24 05:33 98 H 24 97 10/24/24 05:03 93 H 22 96 10/24/24 05:00 102/54 L 10/24/24 04:48 95 H 21 95 10/24/24 04:15 95 H 24 94 Nasal Cannula 2 10/24/24 04:03 93 H 22 91 10/24/24 04:00 102/58 L 10/24/24 04:00 102/58 L 10/24/24 03:48 36.6 C 100 H 24 93 Room Air 10/24/24 03:12 82 14 98 10/24/24 03:00 84 14 98 10/24/24 02:42 79 16 98 10/24/24 02:09 82 14 98 10/24/24 02:00 131/65 10/24/24 01:48 84 15 97 10/24/24 01:01 97/50 L 10/24/24 01:01 97/50 L 10/24/24 01:00 86 17 97 10/24/24 00:33 81 20 97 10/24/24 00:00 118/68 10/23/24 23:57 85 14 97 10/23/24 23:54 89 10/23/24 23:40 90 17 97 10/23/24 23:30 88 16 97 10/23/24 23:06 92 H 24 96 10/23/24 23:00 108/55 L 10/23/24 22:48 92 H 15 96 10/23/24 22:45 93 H 15 96 10/23/24 22:30 101 H 20 96 10/23/24 22:21 95 H 19 96 10/23/24 22:03 103 H 19 96 10/23/24 22:01 111/55 L 10/23/24 22:01 111/55 L 10/23/24 21:57 103 H 15 96 FiO2 10/24/24 08:12 10/24/24 08:00 10/24/24 08:00 10/24/24 07:01 10/24/24 06:54 10/24/24 06:00 10/24/24 06:00 10/24/24 05:33 10/24/24 05:03 10/24/24 05:00 10/24/24 04:48 10/24/24 04:15 10/24/24 04:03 10/24/24 04:00 10/24/24 04:00 10/24/24 03:48 10/24/24 03:12 10/24/24 03:00 10/24/24 02:42 10/24/24 02:09 10/24/24 02:00 10/24/24 01:48 10/24/24 01:01 10/24/24 01:01 10/24/24 01:00 10/24/24 00:33 10/24/24 00:00 10/23/24 23:57 10/23/24 23:54 10/23/24 23:40 30 10/23/24 23:30 10/23/24 23:06 10/23/24 23:00 10/23/24 22:48 10/23/24 22:45 10/23/24 22:30 10/23/24 22:21 10/23/24 22:03 10/23/24 22:01 10/23/24 22:01 10/23/24 21:57 Exam (Neuro) Physical Exam: Neuro: Mental: alert, communicating well. CN: Full EOM, symmetric face Motor: No abnormal movements, Impression: 68 yo female with urosepsis and seizure like event, doing well and no longer encephalopathic. Recommendations: continue medical management as now. continue keppra for 1 week and can stop after that. will sign off. call again if new question. Chart reviewed I have spent more than 50% educating patient about potential diagnosis and neurological evaluation and coordinating care with patient's treatment team. Total time spent (including chart review and coordination of care): 30 min (this includes chart review). PG Care Time/CCT Total # of Minutes Spent Total Time Spent with Patient: Total time spent is greater than 50% in coordination of care (as documented) at patient's floor/unit and/or counseling patient: Coding Level of Care Code 31607 SUB INP/OBS CARE 10/25MIN Diagnoses Altered mental status R41.0 Altered mental status type: disorientation (1) Altered mental status Altered mental status type: disorientation Qualified Code(s): R41.0 - Disorientation, unspecified
[2024-10-24] MEDS: METOPROLOL TARTRATE 100 MG TAB PO SCH (11:04)
[2024-10-24] MEDS: ASPIRIN 81 MG ECTAB PO SCH (11:05)
[2024-10-24] MEDS: CLOPIDOGREL BISULFATE 75 MG TAB PO SCH (11:05)
--- NOTE | 2024-10-24 11:35 | Electrocardiogram Report ---
Test Reason : Blood Pressure : */* mmHG Vent. Rate : 133 BPM Atrial Rate : 133 BPM P-R Int : 150 ms QRS Dur : 78 ms QT Int : 280 ms P-R-T Axes : 58 48 12 degrees QTcB Int : 416 ms Sinus tachycardia Otherwise normal ECG When compared with ECG of 22-Oct-2024 17:12, Premature ventricular complexes are no longer Present Confirmed by Carlos Enrique Mata ([id number]) on 10/24/2024 11:35:10 AM Referred By: REFERRED SELF Confirmed By: Carlos Enrique Mata
--- NOTE | 2024-10-24 13:40 | Pharmacy Report ---
Pharmacy Glycemic Short Note 2 - Date of Service October 24, 2024 - Glycemic Short BSG Results (Last 24 hours): 10/23/24 10/23/24 10/24/24 16:08 20:23 04:09 Glucose 176 H POC Glucose 113 H 137 H 10/24/24 10/24/24 07:20 11:10 Glucose POC Glucose 143 H 148 H OUTPATIENT ANTIDIABETIC REGIMEN: * Lantus 18 units SQ BID HbA1C: 7.8% (08/11/24) ASSESSMENT: 10/24: * BSGs largely within goal the last 24h: [phone]/dl. Received 5 units of basal and 4 units of bolus insulin yesterday. * Continues with no PO intake and ceftriaxone. * Continue Lantus BID per scale depending on BSG until more consistently tolerating PO intake. Novolog 30/08 ACHS. 10/22: * Pt is a 68 year old female admitted with UTI and seizure like activity. History of DM2 on insulin therapy @ home. Pharmacy consulted to assist with inpatient glycemic management. * BSGs [phone]/dL since admission. No insulin administered yesterday. * Ordered clear liquid diet, however minimal PO intake. Receiving IV antibiotics . * Agree with Lantus 8 units X 1 dose this AM - will plan for a scale regimen moving forward depending on BSG. Novolog ACHS moderate stress scale. PLAN FOR INPATIENT GLYCEMIC CONTROL: * Hold outpatient oral diabetes medications * Basal insulin * Lantus 0/5/10 units BID depending on BSG * Bolus insulin * NovoLog per scale ACHS or Q6hrs while NPO * Goal Range: Low 110 mg/dL - High 140 mg/dL * Correction Factor: 30 mg/dL/unit * Nutritional / Prandial insulin per carb ratio of 1 unit per 11 grams CHO consumed
[2024-10-24 14:32] LABS: Codeine Urine NEGATIVE ng/mL (<50); Hydrocodone Urine NEGATIVE ng/mL (<50); Hydromor Urine NEGATIVE ng/mL (<50); Morphine Urine 1950 ng/mL (<50); Norhydrocodone Conf Ur NEGATIVE ng/mL (<50); Noroxycodone Urine NEGATIVE ng/mL (<50); Oxycodone Urine NEGATIVE ng/mL (<50); Oxymorph Urine NEGATIVE ng/mL (<50)
[2024-10-24] MEDS: ACETAMINOPHEN 325 MG TAB PO PRN (16:09)
[2024-10-24 16:43] LABS: BUN Creatinine Ratio 25.5 (10-20); Creatinine Clr Calc Pharmacy 66.6 ml/min; Potassium 3.4 mmol/L (3.5-5.1)
[2024-10-24] MEDS: PIPERACILLIN/TAZOBACTAM 4.5 GM/100 ML BAG IV ONE (17:11)
[2024-10-24] MEDS: AZITHROMYCIN 250 MG TAB PO SCH (17:12)
[2024-10-24] MEDS: ADVANCED PROBIOTIC 625 MG CAPSULE PO SCH (20:47)
[2024-10-24] MEDS: METOPROLOL TARTRATE 50 MG TAB PO SCH (20:49)
[2024-10-24] MEDS: PIPERACILLIN/TAZOBACTAM 4.5 GM/100 ML BAG IV SCH (21:54)
[2024-10-25 03:52] LABS: Hematocrit (blood only) 30.1 % (37.0-47.0); Hemoglobin 9.9 g/dl (12.0-16.0); Mean Corpuscular Hemoglobin 26.6 pg (25.0-34.0); Mean Corpuscular Hgb Conc 32.9 g/dL (32.0-36.0); Mean Corpuscular Volume 80.9 fL (80.0-100.0); Mean Platelet Volume 10.2 fL (9.4-12.4); Platelet Count 170 K/uL (130-400); RDW Coefficient of Variation 15.7 % (11.5-14.5); RDW Standard Deviation 46.5 fL (36.4-46.3); Red Blood Count 3.72 M/uL (4.20-5.40); White Blood Count 8.59 K/ul (4.8-10.8)
[2024-10-25 04:07] LABS: Calcium 7.9 mg/dl (8.6-10.3); Creatinine Clr Calc Pharmacy 62.6 ml/min; Potassium 3.1 mmol/L (3.5-5.1)
[2024-10-25] MEDS: POTASSIUM CHLORIDE CRTAB 20 MEQ TABCR PO ONE (07:27)
[2024-10-25] MEDS: LANTUS PER UNIT CHARGE SC SCH (08:19)
--- NOTE | 2024-10-25 18:04 | Hospitalist Progress Note ---
Date of Service October 25, 2024 Assessment & Plan (1) Septic shock: (2) Seizure-like activity: (3) Acute UTI: (4) Carotid stenosis, right: Plan 68-year-old woman with recently diagnosed UTI, CHF, T2DM, HTN, hypercholesterolemia, CAD, and chronic leg/back pain presenting to ED via EMS for seizure-like activity and confusion, initially starting 0300 the day of arrival and worsening in severity throughout the day. Throughout the course of both ED visits the day of admission, patient did not have leukocytosis, no gross electrolyte abnormalities, but lactate was found to be 2.9, pending repeat, and initial troponin was 58.0, 228 on repeat, pending repeat. Prolactin was 6.45, TSH 1.918. CXR did not reveal acute findings, and head CT was also WNL. The patient's EKG was sinus tachycardia but otherwise WNL. While in the ED, patient received 2L NSS, Zofran, morphine, lorazepam, Keppra, ketorolac, acetaminophen. Became progressively hypotensive despite IV fluids, broad spectrum antibiotics and pressors were required, she required ICU care Septic shock probably caused by pyelonephritis - bilateral hydroureteronephrosis without stones and cystitis seen on CT A/P, dysuria, turbid UA, urine culture with méndez-sensitive Klebsiella, blood Cx NGTD at 48h Metabolic acidosis, lactic acidosis both resolved CARLIN on CKD-3. Cr 1.45 on admission-->1.14 today Adequate UOP Myocardial demand ischemia due to septic shock - HS trop peaked at 317-->236. TTE 10/23 limited quality but nl LV function, mild conc LVH, no significant valvular disease -off norepi 10/22, back on overnight 10/23-10/24 after metoprolol po for tachycardia, hypotension resolved -changed pip-tazo to ceftriaxone - continue IV for now since still acutely ill and not reliable with po -blood cultures 10/21 NGTD, MRSA nares negative -fever >102 evening of 10/23 - might be her pyelo, abx were narrowed 10/23, will check CXR is at risk for aspiration and desatted at night --> unchanged with pulmonary vascular congestions and stranding opacity in bases -broadened antibiotics to cover HAP/CAP - continue pip-tazo and azithromycin for now Acute hypercarbic respiratory failure -resolved with Bipap, naloxone AM 10/22. -needed bipap again overnight for desat on nc, probable sleep apnea -continue nocturnal cpap/bipap -later when more alert get overnight oximetry study -repeat vbg if lethargy worsening, recently not hypercarbic Acute metabolic encephalopathy, seizure-like shaking likely rigors from infection. Brain MRI unremarkable EEG: Mildly abnormal study due to diffuse slowing at times, suggestive of global cortical dysfunction in setting of Encephalopathy. Not in status epilepticus. No epileptic discharges seen. -loaded with keppra in ED. started keppra 500 mg IV bid on 10/23 per neurologist recommendations. May need to stop if lethargy persists. -required precedex for agitation, olanzapine. improved no longer agitated still confused but very slowly improving Consider SELVIN - wakes very slowly. per her she doesn't snore much and he hasn't noticed apneas, sleeps poorly at night from RLS, does sleep in daytime as well PETTY focal (3mm) severe stenosis, no associated stroke -vascular surgery consulted - recommended neuro consult and vascular follow up if procedure thought to be beneficial, otherwise continue statin and antiplatelet follow up 6 months for surveillance -consulted neurology - not addressed in recs, discussed with Dr. Beltran he did not think the PETTY stenosis was related to her encephalopathy presentations -I discussed with her DM 2 - at home regimen Lantus 18 U SQ. Most recent A1C 08/2024 @ 7.8% - continue glargine, aspart, BG checks - pharmacy glycemic consult - BG controlled at goal Hepatic steatosis, hepatomegaly on CT - likely MAFLD, BMI 33 CAD/CHF Episode of rapid aflutter 10/23 H/o CAD with prior "extensive" stenting per cardiology note, follows with [facility] most recently 10/13/2024; Prior stents in the LAD x3, proximal RCA, and proximal posterolateral branch, presence of CHELSIE but extensive stenting so on DAPT still. - Cardio meds- Metoprolol, ASA, Plavix, spironolactone - hold spironolactone until hypotension resolved po normalized - metoprolol continue at half usual dose, ASA/Plavix resumed - monitor for recurrence of flutter. No known history of this to my knowledge. May be triggered by sepsis, however, will arrange ambulatory monitor. Reviewed tele all sinus Replaced hypomagnesemia - mag normal 10/24 Replaced hypokalemia for 3.1 today #Spinal stenosis, lumbar region- Does follow with ortho most recently 10/16/2024; Previously followed with neurology and PT. Pain medications as ordered. #OAB-oxybutynin, Solifenacin - held #HTN-metoprolol reduced, isosorbide mononitrate - held #HLD-rosuvastatin #Restless leg syndrome-pramipexole DVT ppx - enoxaparin 40 SQ daily PT/OT ordered. Stays mainly on lower level of their split-level to avoid stairs, lives with her I updated her at bedside 10/25 Remains very ill and lethargic, still high risk for clinical deterioration - stay in PCU Admission and Anticipated Discharge Date Admission Date: October 21, 2024 Subjective Remained sleepy this am, her at bedside, denied pain. He says she started with flank pain. Later in day RN made her get up and she was alert and eating well Physical Exam 2 Physical Exam: PHYSICAL EXAMINATION Last 24h vital signs reviewed, see documentation in flowsheet General: was sleeping again HEENT: Normocephalic, atraumatic, pupils round and equal, sclerae anicteric, no conjunctival injection, dry mucus membranes Lungs: Normal respiratory effort. Clear to auscultation bilaterally anteriorly. No RRW Heart: Regular rate and rhythm, no murmurs. No JVD Abdomen: Soft, nontender, nondistended. Bowel sounds present. Extremities: Warm, dry, well-perfused. No extremity edema. [place] urine in riojas Neuro: lethargic, slow to arouse then immediately back to sleep, oriented x self and hospital, face symmetric, moves 4 extremities follows commands better today, steelscope operator 4/5 symmetric and distal LE 4/5 and symmetric Psych: not agitated, lethargic Results & Data Results & Data Vital Signs (Past 12 Hours) Vital Signs Temp Pulse Pulse Resp BP Pulse Ox O2 Del Method 10/25/24 15:26 98.4 F 84 18 166/82 H 96 Room Air 10/25/24 11:13 98.4 F 98 H 18 133/81 95 Room Air 10/25/24 08:00 101 H 10/25/24 08:00 Room Air 10/25/24 07:36 97.5 F L 103 H 18 135/73 95 Room Air Laboratory Results 10/25/24 03:35 10/25/24 03:35 PG Care Time/CCT Total # of Minutes Spent Total Time Spent with Patient: Total time spent is greater than 50% in coordination of care (as documented) at patient's floor/unit and/or counseling patient: Coding Level of Care Code 72620 SUB INP/OBS CARE 3/50MIN Diagnoses Septic shock A41.9; R65.21 Seizure-like activity R56.9 Acute UTI N39.0 Carotid stenosis, right I65.21
[2024-10-26] MEDS: LANTUS PER UNIT CHARGE SC SCH ×2 (08:11→20:39)
[2024-10-26 17:03] LABS: BUN Creatinine Ratio 15.6 (10-20); Calcium 8.6 mg/dl (8.6-10.3); Creatinine Clr Calc Pharmacy 52.4 ml/min; Magnesium 1.7 mg/dl (1.7-2.4); Phosphorus 2.7 mg/dl (2.5-4.9); Potassium 3.4 mmol/L (3.5-5.1)
--- NOTE | 2024-10-26 18:44 | Hospitalist Progress Note ---
Date of Service October 26, 2024 Assessment & Plan (1) Septic shock: (2) Seizure-like activity: (3) Acute UTI: (4) Carotid stenosis, right: Plan 68-year-old woman with recently diagnosed UTI, CHF, T2DM, HTN, hypercholesterolemia, CAD, and chronic leg/back pain presenting to ED via EMS for seizure-like activity and confusion, initially starting 0300 the day of arrival and worsening in severity throughout the day. Throughout the course of both ED visits the day of admission, patient did not have leukocytosis, no gross electrolyte abnormalities, but lactate was found to be 2.9, pending repeat, and initial troponin was 58.0, 228 on repeat, pending repeat. Prolactin was 6.45, TSH 1.918. CXR did not reveal acute findings, and head CT was also WNL. The patient's EKG was sinus tachycardia but otherwise WNL. While in the ED, patient received 2L NSS, Zofran, morphine, lorazepam, Keppra, ketorolac, acetaminophen. Became progressively hypotensive despite IV fluids, broad spectrum antibiotics and pressors were required, she required ICU care Septic shock caused by pyelonephritis - bilateral hydroureteronephrosis without stones and cystitis seen on CT A/P, dysuria, back pain, turbid UA, urine culture with méndez-sensitive Klebsiella, blood Cx NGTD Metabolic acidosis, lactic acidosis both resolved CARLIN on CKD-3. Cr 1.45 on admission-->1.14 --> 1.2 Adequate UOP Myocardial demand ischemia due to septic shock - HS trop peaked at 317-->236. TTE 10/23 limited quality but nl LV function, mild conc LVH, no significant valvular disease -off norepi 10/22, back on overnight 10/23-10/24 after metoprolol po for tachycardia, hypotension resolved -blood cultures 10/21 and 10/25 NGTD, MRSA nares negative -fever >102 evening of 10/23 - might be her pyelo, abx were narrowed 10/23, will check CXR is at risk for aspiration and desatted at night --> unchanged with pulmonary vascular congestions and stranding opacity in bases -broadened antibiotics to cover HAP/CAP - continue pip-tazo and azithromycin for now Acute hypercarbic respiratory failure -resolved with Bipap, naloxone AM 1/22. -needed bipap again overnight for desat on nc, probable sleep apnea -continue nocturnal cpap/bipap -repeat vbg if lethargy worsening, recently not hypercarbic Acute metabolic encephalopathy, seizure-like shaking likely rigors from infection. Brain MRI unremarkable EEG: Mildly abnormal study due to diffuse slowing at times, suggestive of global cortical dysfunction in setting of Encephalopathy. Not in status epilepticus. No epileptic discharges seen. -loaded with keppra in ED. started keppra 500 mg IV bid on 10/23 per neurologist recommendations. changed to oral -required precedex for agitation, olanzapine during ICU course - significantly improved Consider SELVIN - wakes very slowly. per her she doesn't snore much and he hasn't noticed apneas, sleeps poorly at night from RLS, does sleep in daytime as well - overnight oximetry study prior to discharge PETTY focal (3mm) severe stenosis, no associated stroke -vascular surgery consulted - recommended neuro consult and vascular follow up if procedure thought to be beneficial, otherwise continue statin and antiplatelet follow up 6 months for surveillance -consulted neurology - not addressed in recs, discussed with Dr. Beltran he did not think the PETTY stenosis was related to her encephalopathy presentations - Lillian was able to discuss this with me today she has had multiple episodes of what sounds like a right carpal spasm and at times her whole right side was spasming this does not last very long and she is fully alert during episodes they have been associated with hypomagnesemia and old labs I see this going down as low as 1.2, I do not see any significant hypokalemia hypocalcemia in our previous labs prior to ICU stay - she has not had any episodes that sound like TIA or stroke DM 2 - at home regimen Lantus 18 U SQ. Most recent A1C 08/2024 @ 7.8% - continue glargine, aspart, BG checks - pharmacy glycemic consult - BG controlled at goal Hepatic steatosis, hepatomegaly on CT - likely MAFLD, BMI 33 CAD/CHF Episode of rapid aflutter 10/23 H/o CAD with prior "extensive" stenting per cardiology note, follows with [facility] most recently 10/13/2024; Prior stents in the LAD x3, proximal RCA, and proximal posterolateral branch, presence of CHELSIE but extensive stenting so on DAPT still. - Cardio meds- Metoprolol, ASA, Plavix, spironolactone - hold spironolactone until renal function stabilizes - metoprolol has been at half dose will change to succinate at 150 mg tomorrow morning usual dose is 200, ASA/Plavix continued - monitor for recurrence of flutter. No known history of this to my knowledge. May be triggered by sepsis, however, will arrange ambulatory monitor. reviewed telemetry 10/26 continues to be sinus rhythm Replaced hypomagnesemia - mag normal 10/24. check in a.m. Replaced hypokalemia for 3.2 with 40 mEq p.o., recheck in a.m. #Spinal stenosis, lumbar region- Does follow with ortho most recently 10/16/2024; Previously followed with neurology and PT. Pain medications as ordered. #OAB-oxybutynin, Solifenacin - held #HTN-metoprolol reduced, isosorbide mononitrate - held #HLD-rosuvastatin #Restless leg syndrome-pramipexole DVT ppx - enoxaparin 40 SQ daily will get [place] out can use pure wick PT/OT recommend rehab she is extremely weak I updated her at bedside 10/25, 10/26 okay for transfer to [facility] telemetry Admission and Anticipated Discharge Date Admission Date: October 21, 2024 Mikie Snyder is doing much better today she is more awake not sleeping so much and she is much more oriented and conversational she is able to tell me about recent problems she has had with spasms in her right arm and at times her whole right side of her body she is alert during these episodes no rhythmic shaking in the past they have been thought to be related to electrolyte disturbance, specifically magnesium, however she reports she took a magnesium supplement and it did not really seem to help she has noticed left lower extremity weaknessspecifically left hip flexor weakness for few months she has no back or leg pain Physical Exam 2 Physical Exam: PHYSICAL EXAMINATION Last 24h vital signs reviewed, see documentation in flowsheet General: awake HEENT: Normocephalic, atraumatic, pupils round and equal, sclerae anicteric, no conjunctival injection, dry mucus membranes Lungs: Normal respiratory effort. Clear to auscultation bilaterally anteriorly. No RRW Heart: Regular rate and rhythm, no murmurs. No JVD Abdomen: Soft, nontender, nondistended. Bowel sounds present. Extremities: Warm, dry, well-perfused. No extremity edema. Serena urine in riojas Neuro: awake and alert oriented x 4, moves 4 extremities follows commands and is conversational, channel marketing specialist 3-4/5 symmetric and distal LE 4/5 and symmetric Psych: not agitated, lethargic Results & Data Results & Data Vital Signs (Past 12 Hours) Vital Signs Temp Pulse Pulse Resp BP Pulse Ox O2 Del Method 10/26/24 15:55 98.1 F 102 H 18 158/84 H 94 Room Air 10/26/24 11:17 97.9 F 88 18 134/76 94 Room Air 10/26/24 09:00 100 H 10/26/24 09:00 Room Air 10/26/24 07:32 97.9 F 101 H 18 161/80 H 91 Room Air Laboratory Results 10/25/24 03:35 10/26/24 16:24 PG Care Time/CCT Total # of Minutes Spent Total Time Spent with Patient: Total time spent is greater than 50% in coordination of care (as documented) at patient's floor/unit and/or counseling patient: Coding Level of Care Code 54190 SUB INP/OBS CARE 3/50MIN Diagnoses Septic shock A41.9; R65.21 Seizure-like activity R56.9 Acute UTI N39.0 Carotid stenosis, right I65.21
[2024-10-26] MEDS: MAGNESIUM SULFATE / D5W 1 GM/100 ML BAG IV SCH (20:21)
[2024-10-26] MEDS: POTASSIUM CHLORIDE CRTAB 20 MEQ TABCR PO ONE (20:21)
[2024-10-26] MEDS: levETIRAcetam 500 MG TAB PO SCH (21:29)
[2024-10-26] MEDS: METOPROLOL TARTRATE 100 MG TAB PO SCH (21:29)
[2024-10-27 07:27] LABS: BUN Creatinine Ratio 15.5 (10-20); Calcium 8.5 mg/dl (8.6-10.3); Creatinine Clr Calc Pharmacy 56.9 ml/min; Potassium 3.7 mmol/L (3.5-5.1)
[2024-10-27] MEDS: METOPROLOL SUCC 50MG EXT REL TAB PO SCH (07:34)
[2024-10-27] MEDS: POTASSIUM CHLORIDE CRTAB 20 MEQ TABCR PO ONE ×2 (09:31→18:35)
[2024-10-27] MEDS: FUROSEMIDE 40 MG/4 ML VIAL IV ONE (09:31)
[2024-10-27] MEDS: cefUROXime axetil 500 MG TAB PO SCH (09:31)
--- NOTE | 2024-10-27 09:35 | Pharmacy Report ---
Pharmacy Glycemic Short Note 2 - Date of Service October 27, 2024 - Glycemic Short BSG Results (Last 24 hours): 10/26/24 10/26/24 10/26/24 10:56 16:12 16:24 Glucose 128 H POC Glucose 162 H 139 H 10/26/24 10/27/24 10/27/24 20:06 06:11 07:29 Glucose 119 H POC Glucose 118 H 117 H OUTPATIENT ANTIDIABETIC REGIMEN: * Lantus 18 units SQ BID HbA1C: 7.8% (08/11/24) ASSESSMENT: 10/27/24: * Blood sugars reasonably well-controlled over past 72 hours * Receiving ~30 units of insulin/day * Do not anticipate any changes to glycemic regimen today 10/24: * BSGs largely within goal the last 24h: [phone]/dl. Received 5 units of basal and 4 units of bolus insulin yesterday. * Continues with no PO intake and ceftriaxone. * Continue Lantus BID per scale depending on BSG until more consistently tolerating PO intake. Novolog 30/08 ACHS. 10/22: * Pt is a 68 year old female admitted with UTI and seizure like activity. History of DM2 on insulin therapy @ home. Pharmacy consulted to assist with inpatient glycemic management. * BSGs [phone]/dL since admission. No insulin administered yesterday. * Ordered clear liquid diet, however minimal PO intake. Receiving IV antibiotics. * Agree with Lantus 8 units X 1 dose this AM - will plan for a scale regimen moving forward depending on BSG. Novolog ACHS moderate stress scale. PLAN FOR INPATIENT GLYCEMIC CONTROL: * Hold outpatient oral diabetes medications * Basal insulin * Lantus 10 units SC daily * Bolus insulin * NovoLog per scale ACHS or Q6hrs while NPO * Goal Range: Low 110 mg/dL - High 140 mg/dL * Correction Factor: 25 mg/dL/unit * Nutritional / Prandial insulin per carb ratio of 1 unit per 9 grams CHO consumed
[2024-10-27] MEDS: LORazepam 1 MG TAB SL ONE (16:45)
--- NOTE | 2024-10-27 18:14 | Magnetic Resonance Report ---
Clinical History: Arm weakness Technique: Sagittal and axial T1 and T2-weighted magnetic resonance images were obtained of the cervical spine without gadolinium contrast. Findings: The cervical vertebrae are in normal alignment with no listhesis seen. No fracture is identified. There is disc space narrowing and degenerative plate change at C6-7 There is no definite sign of infection. There is no sign of acute ligamentous injury. There is increased T2 signal intensity within the spinal cord at the levels of C1-C3, extending approximately 2.5 cm craniocaudal and 8 x 5 mm in cross-section. There is suspected more subtle increased T2 signal intensity within the spinal cord at the levels of C6 and C7. The cerebellar tonsils are normally situated. At C2-C3, no disc herniation is present. There is no spinal stenosis or nerve root compression At C3-C4, there is a disc bulge and a small central disc protrusion, without spinal stenosis. There is mild left and minimal right neural foramen narrowing At C4-C5, there is mild spinal stenosis with spinal cord deformity due to a disc bulge and a central disc herniation. There is left neural foramen narrowing that may affect the left C5 nerve root At C5-C6, there is spinal stenosis with compression of the spinal cord due to a disc bulge and a mild broad-based central disc protrusion. There is left greater than right neural foramen narrowing that may affect the left C6 nerve root At C6-C7, there is spinal stenosis with spinal cord deformity due to a disc bulge and a broad-based left paracentral disc protrusion. There is mild left neural foramen narrowing At C7-T1, no disc herniation is present. There is no spinal stenosis or nerve root compression Impression: 1. Abnormal signal within the spinal cord at the levels of C1-C3. This could be due to demyelinating disease such as multiple sclerosis. Spinal cord neoplasm is less likely but cannot be excluded. MRI of the brain and cervical spine with and without intravenous contrast could be obtained for further evaluation 2. Spinal stenosis at C5-6 and C6-7 and to a lesser extent at C4-5 with spinal cord deformity due to disc bulges and disc herniations 3. Apparent mild abnormal signal within the spinal cord at the levels of C6 and C7, which could be due to edema or myelomalacia from the spinal stenosis 4. Left C4-5 and C5-6 neural foramen narrowing, which may affect the exiting nerve roots. Less severe neural foramen narrowing is seen at other levels Electronically signed by Moo [id number] 6:13 PM
--- NOTE | 2024-10-27 18:32 | Hospitalist Progress Note ---
Date of Service October 27, 2024 Assessment & Plan (1) Septic shock: (2) Seizure-like activity: (3) Acute UTI: (4) Carotid stenosis, right: Plan 68-year-old woman with recently diagnosed UTI, CHF, T2DM, HTN, hypercholesterolemia, CAD, and chronic leg/back pain presenting to ED via EMS for seizure-like activity and confusion, initially starting 0300 the day of arrival and worsening in severity throughout the day. her describes limb shaking and it was difficult for her to unlock the car while in the drugstore parking lot but she was purposeful and trying to release the locks. While in the ED, patient received 2L NSS, Zofran, morphine, lorazepam, Keppra, ketorolac, acetaminophen. Became progressively hypotensive despite IV fluids, broad spectrum antibiotics and pressors were required, she required ICU care. septic shock was caused by Klebsiella pyelonephritis. shock resolved and she was able to transfer to the medical unit. #Septic shock caused by pyelonephritis - bilateral hydroureteronephrosis without stones and cystitis seen on CT A/P, dysuria, back pain, turbid UA, urine culture with méndez-sensitive Klebsiella, blood Cx NGTD Septic shock, metabolic acidosis, lactic acidosis all resolved #CARLIN on CKD-3. Cr 1.45 on admission-->1.14 --> 1.1 Adequate UOP #Myocardial demand ischemia due to septic shock - HS trop peaked at 317-->236. TTE 10/23 limited quality but nl LV function, mild conc LVH, no significant valvular disease -off norepi 10/22, back on overnight 10/23-10/24 after metoprolol po for tachycardia, hypotension thereafter resolved -blood cultures 10/21 and 10/25 NGTD, MRSA nares negative -fever >102 evening of 10/23 - CXR with streaky opacities in bases, broadened ABX to cefepime, azithro (completed) -deescalated to complete course with cefuroxime po on 10/27 -essentially resolved #Acute hypercarbic respiratory failure -resolved with Bipap, naloxone AM 10/22. -needed bipap again overnight for desat on nc, probable sleep apnea -continue nocturnal cpap/bipap for now since remains very weak Acute metabolic encephalopathy, seizure-like shaking retained some alertness/purposefulness likely rigors from infection. Brain MRI unremarkable EEG: Mildly abnormal study due to diffuse slowing at times, suggestive of global cortical dysfunction in setting of Encephalopathy. Not in status epilepticus. No epileptic discharges seen. -loaded with keppra in ED. started keppra 500 mg IV bid on 10/23 per neurologist recommendations. changed to oral -required precedex for agitation, olanzapine during ICU course -resolved, mentation normal -input from neuro whether keppra needs to be continued, concern it is contributing to lethargy Consider SELVIN - wakes very slowly. per her she doesn't snore much and he hasn't noticed apneas, sleeps poorly at night from RLS, does sleep in daytime as well - overnight oximetry study prior to discharge PETTY focal (3mm) severe stenosis, no associated stroke -vascular surgery consulted - recommended neuro consult and vascular follow up if procedure thought to be beneficial, otherwise continue statin and antiplatelet follow up 6 months for surveillance -consulted neurology last week - not addressed in recs, discussed with Dr. Beltran he did not think the PETTY stenosis was related to her encephalopathy presentation otherwise did not comment - Lillian was able to discuss this with me 10/26 she has had multiple episodes of what sounds like a right carpal spasm and at times her whole right side was spasming this does not last very long and she is fully alert during episodes they have been associated with hypomagnesemia and old labs I see this going down as low as 1.2, I do not see any significant hypokalemia hypocalcemia in our previous labs prior to ICU stay - she has not had any episodes that sound like TIA or stroke - these episodes do not seem like partial complex seizures or TIA to me, but conceivably could be # Bilateral hand pain - did not seem to improve with diuretics, yet. No hx gout/pseudogout and no warmth/erythema. No pain in "cape" distribution but consider C-spine radicular pain especially with global weakness # Significant global weakness - onset at least months ago but now post ICU stay she is extremely weak, especially in R>L hands which is new, L hip flexor has been weak for awhile. No numbness tingling. Hands pain. Does have history of lumbar spinal stenosis and recently urinary incontinence. Has seen urology but question overflow incontinence -brain MRI was done early in admission, no CVA -ordered c-spine MRI -could have critical illness myopathy/neuropathy but ICU stay was only 2-3 days -considered MG (could not open eyes in ICU but was awake and aware), she does have some fatigability. Maintains upward gaze for me today no lid lag. -considered GBS/CIDP - no diarrheal or viral illness recently, I cannot get LE reflexes but challenging exam due to body habitus and positioning. -reconsulted neurology - Dr. Bahena said he can see tomorrow AM #Acute on chronic HFpEF - anasarca and dyspnea. EF 60-65% on TTE this admission. No significant valvular disease. mild LVH. - massive response to lasix 40 mg IV today - 3600 UOP so far. Dyspnea improved. Potassium 40 meq po and second afternoon dose given. AM BMP mag - consider further diuresis tomorrow perhaps only 20 mg lasix - resume spironolactone tomorrow if BMP stable # CAD # Episode of rapid aflutter 10/23 - brief, while still in ICU H/o CAD with prior "extensive" stenting per cardiology note, follows with [facility] most recently 10/13/2024; Prior stents in the LAD x3, proximal RCA, and proximal posterolateral branch, presence of CHELSIE but extensive stenting so on DAPT still. - Cardio meds- Metoprolol, ASA, Plavix - metoprolol has been at half dose started metoprolol succinate at 150 mg today usual dose is 200, ASA/Plavix continued - monitor for recurrence of flutter. No known history of this to my knowledge. May be triggered by sepsis, however, will arrange ambulatory monitor. reviewed telemetry 10/27 continues to be sinus rhythm # Replaced hypomagnesemia - mag normal 10/27 and started po mag ox for chronic hypomag, Replaced hypokalemia # DM 2 - at home regimen Lantus 18 U SQ. Most recent A1C 08/2024 @ 7.8% - continue glargine, aspart, BG checks - pharmacy glycemic consult - BG controlled at goal # Hepatic steatosis, hepatomegaly on CT - likely MAFLD, BMI 33 #Spinal stenosis, lumbar region- Does follow with ortho most recently 10/16/2024; Previously followed with neurology and PT. Pain medications as ordered. #Urinary incontinence (recent), OAB followed by urology - oxybutynin, Solifenacin - held #HTN-metoprolol reduced, isosorbide mononitrate - held #HLD-rosuvastatin #Restless leg syndrome-pramipexole DVT ppx - enoxaparin 40 SQ daily will get Chi out once off IV lasix - difficult mobility PT/OT recommend rehab she is extremely weak I updated her at bedside 10/25, 10/26 Admission and Anticipated Discharge Date Admission Date: October 21, 2024 Subjective Lillian felt better after dose of IV Lasix this morning her breathing improved a lot she continues to be extremely weak especially her hands right greater than left she had to use adaptive silverware to eat and had to use her left hand. PT OT has had her standing up both hands are quite painful she has no history of gout or pseudogout, unclear whether they got worse after diuretics started Physical Exam 2 Physical Exam: PHYSICAL EXAMINATION Last 24h vital signs reviewed, see documentation in flowsheet General: awake and alert HEENT: Normocephalic, atraumatic, pupils round and equal, sclerae anicteric, no conjunctival injection, dry mucus membranes Lungs: respiratory work of breathing seems improved Clear to auscultation bilaterally anteriorly. No RRW Heart: Regular rate and rhythm, mildly tachycardic, no murmurs. No JVD Abdomen: Soft, nontender, nondistended. Bowel sounds present. Extremities: Warm, dry, well-perfused. anasarca improved large amount of very clear yellow urine in Chi bag Neuro: awake and alert oriented x 4, moves 4 extremities follows commands and is conversational, very weak bilateral extremities right greater than left radioisotope technologist are the weakest probably 3/5, proximal strength is better, bilateral lower extremity weakness proximal worse than distally, dorsal and plantarflexion 4 out of 5. left hip flexors chronically weaker than the right. I could not get any lower extremity reflexes although challenging exam because of body habitus and positioning, no ankle clonus. she is up able to sustain upward gaze no lid lag, she is able to raise her head off the bed and touch her chin to her chest Psych: alert, calm, normal affect and behavior Results & Data Results & Data Vital Signs (Past 12 Hours) Vital Signs Temp Pulse Pulse Resp BP Pulse Ox O2 Del Method 10/27/24 15:55 Room Air 10/27/24 15:55 104 H 10/27/24 15:46 97.9 F 102 H 18 135/80 92 Room Air 10/27/24 12:00 98.4 F 97 H 16 141/63 H 96 Room Air 10/27/24 08:54 104 H 10/27/24 08:54 Room Air 10/27/24 08:00 98.6 F 98 H 18 158/70 H 95 Room Air Laboratory Results 10/25/24 03:35 10/27/24 06:11 PG Care Time/CCT Total # of Minutes Spent Total Time Spent with Patient: Total time spent is greater than 50% in coordination of care (as documented) at patient's floor/unit and/or counseling patient: Coding Level of Care Code 32793 SUB INP/OBS CARE 3/50MIN Diagnoses Septic shock A41.9; R65.21 Seizure-like activity R56.9 Acute UTI N39.0 Carotid stenosis, right I65.21
[2024-10-28 07:51] LABS: BUN Creatinine Ratio 19.6 (10-20); Calcium 8.8 mg/dl (8.6-10.3); Magnesium 1.8 mg/dl (1.7-2.4)
--- NOTE | 2024-10-28 10:23 | Neurology Progress Note ---
Date of Service October 28, 2024 Assessment & Plan (1) Demyelinating disease of central nervous system: (2) Cervical myelopathy: (3) Dystonia: Plan 68-year-old female with probable demyelinating disease with evidence of an area of cervical spinal cord demyelination at C2-C3. She also has cervical spinal stenosis at C5-6 with an associated area of myelomalacia at that level. Her recent brain MRI was technically limited due to motion artifact, but did reveal white matter T2/FLAIR hyperintensities that could be microvascular in etiology, although demyelination cannot be excluded. Clinically, she has been experiencing episodes of recurrent dystonia over the past year, involving the right hand and upper limb, sometimes the right leg is involved as well, most recently, had an episode of generalized dystonic spasms and posturing prior to admission, in the context of urosepsis. Her encephalopathy has resolved with treatment. I do not think the observed episodes are due to seizures. She also has developed associated ambulatory dysfunction, using either a cane or walker depending on circumstances, as well as urinary incontinence. This patient appears to meet the clinical criteria for clinically isolated syndrome, multiple sclerosis not excluded. I would like her to have a repeat brain MRI with and without contrast, MS protocol, as well as a repeat MRI of the cervical spine with contrast. Gadolinium should assist in any active demyelination, and again, her brain MRI was very limited due to motion artifact. After completion of the above repeat MRIs, patient should have a lumbar puncture completed with MS panel. Would also recommend some additional serologies including KAILA 12 panel, ANCA, rheumatoid factor, angiotensin-converting enzyme, Lyme, vitamin B12, copper, RPR. Consider a trial of baclofen to address her intermittent dystonic spasms, would start with 10 mg 2 times per day, can be increased to 3 times per day if necessary. Admission and Anticipated Discharge Date Admission Date: October 21, 2024 Subjective I was asked to evaluate this patient regarding recurrent right forearm spasms Patient is currently however increased shock barely all. There context of urinary tract infection. She has a known history of severe stenosis of the proximal right internal carotid artery and right carotid bulb. She complains of episodes of involuntary muscular spasm of the right upper limb and hand, which curls into a fist, occurring intermittently over the past year. She recalls a few episodes that also involved the right leg. There was no alteration in awareness or consciousness during these episodes. No alteration in speech. She has also developed urinary incontinence over the past year and ambulatory dysf unction, using either a cane or walker depending on circumstances. Just prior to admission, she had an episode of generalized stiffening of her limbs that occurred while she was waiting in the car in a parking lot for her who was shopping at the time. He found her with generalized stiffening of the limbs, no reported loss of consciousness or seizure-like activity. An EEG completed on October 22, 2024 was suggestive of encephalopathy, no epileptiform abnormalities. She was seen by Dr. Beltran regarding encephalopathy in the context of urosepsis and possible seizure-like event. She was initially started on Keppra although plan was to stop this medication after 1 week. She did have a brain MRI completed on October 21, 2024 that was technically limited due to motion artifact although there was mild white matter T2/FLAIR hyperintensity potentially consistent with chronic microvascular ischemic change as well as mild age-related atrophy. No abnormal enhancement. She subsequently had a cervical spine MRI completed yesterday that reveals an area of probable demyelination within the upper cervical spinal cord between C1 and C3, visible on sagittal and axial views. She also has spinal stenosis at C5-6 and C6-7 with associated spinal cord myelomalacia. In speaking with the patient further, she does not have a known history of optic neuritis, and further denies a history of diplopia or vertigo that has lasted more than a day. She has no known history of relapses, remissions, or other transient neurologic events. She does have a son who was diagnosed with multiple sclerosis, he had presented with optic neuritis. Results & Data Vital Signs (Past 12 Hours) Vital Signs Temp Pulse Pulse Resp BP Pulse Ox O2 Del Method 10/28/24 07:44 36.7 C 93 H 18 147/84 H 91 Room Air 10/28/24 07:26 85 10/28/24 02:54 37 C 101 H 16 160/72 H 92 Room Air 10/27/24 23:45 Room Air 10/27/24 23:10 36.9 C 105 H 18 171/79 H 90 Room Air Exam (Neuro) Constitutional: well developed and well nourished; no acute distress Eyes: normal visual leyva by confrontation, PERRL and EOM intact bilaterally; no nystagmus Neurologic: Oriented to:: Person, Place and Time Memory: Short Term Intact and Remote Intact Attention: Span Intact and Concentration Intact Speech Fluency: negative Dysarthria or Dysfluency Speech Aphasia: negative Aphasia Fund of Knowledge: Current Events, Past History and Vocabulary Cranial Nerves: Normal II, III, IV, , V, VII, VIII, IX, X, XI and XII Motor Strength: negative Normal Lower Extremities or Normal Upper Extremities Hypertonicity: Arms and Legs Muscle Bulk/Involuntary Movements: No Involuntary Movements; negative Muscle Atrophy Sensation: Light Touch Intact, Pain/Temperature Intact and Proprioception Intact Coordination: negative Finger-Nose Abnormal or Heel-Vásquez Abnormal Deep Tendon Reflexes: Lt Triceps: 2+, Rt Biceps: 3+, Rt Patellar: 1+ and Lt Patellar: 1+ Special Tests: Babinski Present (R>>L) Details: Patient has increased tone for the right arm and leg. She has decreased facility of fine finger movements for the right hand as well as decreased counter checker strength. She has mild ataxia with [id number] on the right. Coding Level of Care Code 79932 SUB INP/OBS CARE 3/50MIN Diagnoses Demyelinating disease of central nervous system G37.9 Cervical myelopathy G95.9 Dystonia G24.9 Time Spent (min) 60 Comment Total time includes patient contact, chart review, counseling, note preparation
[2024-10-28] MEDS: MAGNESIUM OXIDE 400 MG TAB PO SCH (11:09)
[2024-10-28] MEDS: POTASSIUM CHLORIDE CRTAB 20 MEQ TABCR PO STA (11:33)
[2024-10-28] MEDS: GADOBUTROL 65ML VIAL IV ONE (12:53)
--- NOTE | 2024-10-28 13:51 | Magnetic Resonance Report ---
MR brain MS wo/w con CLINICAL HISTORY: Demyelinating disease. COMPARISON STUDY: Head CT October 21, 2024. MRI of the brain October 22, 2024. TECHNIQUE: Utilizing a 1.5 Fern magnet and dedicated coil, multiplanar, multi echo imaging of the br ain was performed pre and postcontrast administration according to multiple sclerosis protocol. Intra venous injection of 9 cc of Gadavist was uneventful. FINDINGS: There are no foci of restricted diffusion to suggest acute infarct. No acute intracranial h emorrhage, midline shift or mass effect is present. Ventricular system is normal. Basal cisterns are patent. Flow-voids for the major intracranial vessels are present. There is no intracranial mass or p athologic enhancement. There is no parenchymal enhancement to suggest active demyelination. Multiple white matter T2 hyperintense foci have slightly progressed since MRI of April 23, 2023. There is no as sociated enhancement. T2 hyperintensity within the cervical cord at the C2-C3 level is better depicte d on the cervical spine MRI which will be reported separately. There is no associated cord enhancemen t. Calvarial signal is normal. IMPRESSION: 1. No acute intracranial findings. 2. Minimal increase in scattered white matter T2 hyperintense foci since MRI of April 23, 2023. These are indeterminate and could represent demyelinating disease or small vessel disease. No evidence for active demyelination. 3. Increased T2 signal within the cord at the C2-C3 level, better depicted on the MRI of the cervical spine. This is highly suggestive of a demyelinating disease such as multiple sclerosis. ACT 112: Negative or not required by law. Electronically signed by: Mu Arriaza M.D. 10/28/2024 1:50 PM
--- NOTE | 2024-10-28 13:57 | Magnetic Resonance Report ---
MR cervical spine wo/w con CLINICAL HISTORY: Demyelinating disease COMPARISON STUDY: None available TECHNIQUE: Multiplanar MRI of the cervical spine was performed using various pulse sequences before a nd after 9 cc of intravenous gadolinium. FINDINGS: Image quality is limited by motion degradation and body habitus. There is increased signal intensity within cervical spinal cord T2 and STIR images from C2 to the C3-4 level. There is no cord enlargement associated with this signal abnormality. There is no associated gadolinium enhancement. C2-3 level and C3-4 level are grossly negative. There is a small central disc protrusion at C4-5 with cephalic extension behind the posterior inferio r aspect of the C4 vertebral body the midline. This causes minimal effacement of the ventral aspect o f the thecal sac without significant cord compression. C5-6 level demonstrates a central disc osteophyte protrusion in conjunction with a congenital cervica l spinal canal narrowing resulting in an AP canal measurement of 7 mm. C6-7 level demonstrates a similar central disc osteophyte protrusion resulting in a narrow central ca nal measuring 7 mm. C7-T1 level is grossly negative. I cannot confirm myelomalacia associated with the C5-6 and C6-7 stenoses on the present examination. IMPRESSION: Increased T2 cord signal intensity on the T2 weighted and STIR-weighted sequences consis tent with a demyelinating process at the C2 and C3 level. No evidence of gadolinium enhancement or ma ss effect. Cervical spinal stenosis at C5-6 and C6-7 mild to moderate severity with no definite myelomalacia madi ntified on the present study. Please be advised that Image quality is hampered by motion and body hab itus. ACT 112: Negative or not required by law. Electronically signed by: Shital Crook M.D. 10/28/2024 1:55 PM
--- NOTE | 2024-10-28 14:10 | Hospitalist Progress Note ---
Date of Service October 28, 2024 Assessment & Plan (1) Septic shock: Plan: 68yo female with recently diagnosed UTI, CHF, T2DM, HTN, hypercholesterolemia, CAD, and chronic leg/back pain presenting to ED via EMS for seizure-like activity and confusion, initially starting 0300 the day of arrival and worsening in severity throughout the day. her describes limb shaking. Upon ER presentation was in profound shock requiring admission to the ICU. source - urinary tract as in #1 below required ICU admission early in the hospitalization due to need for pressors initially was on norepinephrine - weaned off by 10/22, then back on overnight of 10/23-10/24, then weaned off for good some of her BP meds have been resumed albeit at lower doses (2) Acute UTI: Plan: 2nd pansensitive klebsiella initially on IV abx (rocephin / zosyn), now over to PO cefuroxime starting on 10/27 thus, today is day #8 of effective abx therapy CT a/p on hospital day #1 showed - "Nonspecific bilateral perinephric fat stranding. Mild bilateral hydroureteronephrosis without obstructing stone identified. Findings may be secondary to infection." In light of the CT we are treating for possible pyelonephritis - especially given how ill she was at the start of her hospitalization thus, Rx for total of 14 days (3) Seizure-like activity: Plan: question of started on keppra 500mg BID for such early in the admission (10/23/24) EEG: Mildly abnormal study due to diffuse slowing at times but no epileptic discharges episodes may be more do dystonic reactions / myoclonus rather than true seizure activity defer to [facility] Neurology whether to continue such (4) Carotid stenosis, right: Plan: initially dx 03/2024 on CTA neck severe stenosis (short segment) seen by vascular surgery this admission cont statin cont plavix cont asa f/u 6 months for surveillance (5) CARLIN (acute kidney injury): Plan: sepsis-associated ATN resolved Peak Cr 1.45 now <1 (6) Elevated troponin: Plan: Myocardial demand ischemia due to septic shock no evidence of ACS HS trop peaked at 317 echo 10/23 - poor quality but nl LV function, mild conc LVH, no significant valvular disease (7) Acute hypercapnic respiratory failure: Plan: 10/22 - resolved with BiPAP & naloxone concern for sleep apnea could neurological issues from c-spine disease (see below) be contributing ?? continue nocturnal BiPAP as tolerated consider overnight oximetry study prior to discharge consider AM ABG to try and qualify her for BiPAP upon discharge (8) Acute metabolic encephalopathy: Plan: resolved 2nd to septic shock, hypercapnia, etc. back to baseline (9) Demyelinating disease of central nervous system: Plan: 10/27 cervical spine MRI concerning for demyelinating disease appreciate input from Dr Bahena, [facility] Neurology he advised repeat MRI c-spine & brain w/ and w/o contrast these repeat MRIs are concerning for MS or similar disease labs ordered for tomorrow (copper level, B12, KAILA, RPR, Lyme, etc) needs LP, but plavix will need to be held for at least 5 days patient made aware of the above appreciate Dr Bahena's assistance for dystonia start baclofen 5mg BID (10) Acute on chronic heart failure with preserved ejection fraction (HFpEF): Plan: improving cont diuresis - given 20mg IV x 1 of lasix repeat BMP am (11) Coronary artery disease: Plan: Prior stents in the LAD x3, proximal RCA, and proximal posterolateral branch remains on DAPT cont statin cont meto succ no evidence of ACS or ischemic symptoms (12) Uncontrolled type 2 diabetes mellitus with hyperglycemia: Plan: HbA1C 08/2024 -- 7.8% cont lantus cont novolog appreciate pharmacy glycemic team assistance (13) Paroxysmal atrial flutter: Plan: 10/23/24 - episode of such while in ICU terminated no recurrence since then cont metoprolol succ Plan right wrist/hand pain - check x-rays, r/o CPPD, etc. * Urinary incontinence - oxybutynin, Solifenacin - both on held; has riojas in place * HTN - cont meto succ; imdur on hold * hyperlipidemia - cont rosuvastatin * restless leg syndrome - pramipexole is on hold * DVT prophylaxis - cont enoxaparin 40 daily cont PT, OT ultimate dispo - rehab care d/w neurology - Dr Bahena will update pt's Admission and Anticipated Discharge Date Admission Date: October 21, 2024 Subjective patient overall feeling better we discussed her MRI results from the c-spine & brain discussed the ? of MS she is not having as much spasm of her hands/arms but does note mild swelling & discomfort in her right wrist & right hand denies left-sided symptoms today denies dyspnea at rest appetite fair-good Review of Systems Review of Systems: gen - no fevers or chills cv - no chest pain pulm - no cough GI - no N/V; +stool today Physical Exam Physical Exam: gen - NAD, lying comfortably in bed mouth - MMM neck - mild JVD noted heart - RRR, s1 s2, no murmur lungs - CTA b/l abd - soft NT ND BS+ musculo - ?mild synovitis of right wrist and multiple small joints right hand ext - no edema, pulses b/l feet 2+ neuro - handgrip on right 4/5; handgrip on left 5/5; left hip flexion 3/5; right hip flexion 5/5; b/l ankle dorsiflexion/plantarflexion 5/5 no facial droop; speech clear/fluent Results & Data Results & Data Vital Signs (Past 12 Hours) Vital Signs Temp Pulse Pulse Resp BP Pulse Ox O2 Del Method 10/28/24 10:55 36.5 C 97 H 16 145/85 H 97 Room Air 10/28/24 07:44 36.7 C 93 H 18 147/84 H 91 Room Air 10/28/24 07:26 85 10/28/24 02:54 37 C 101 H 16 160/72 H 92 Room Air Laboratory Results Laboratory Results - last 24 hr 10/27/24 10/28/24 10/28/24 21:27 07:03 08:08 Sodium 139 Potassium 4.0 Chloride 106 Carbon Dioxide 25 Anion Gap 8 BUN 19 Creatinine 0.97 Est Cr Clr Drug Dosing 64.0 eGFR 64.45 BUN/Creatinine Ratio 19.6 Glucose 135 H POC Glucose 136 H 140 H Calcium 8.8 Magnesium 1.8 10/28/24 10/28/24 13:25 16:53 Sodium Potassium Chloride Carbon Dioxide Anion Gap BUN Creatinine Est Cr Clr Drug Dosing eGFR BUN/Creatinine Ratio Glucose POC Glucose 137 H 141 H Calcium Magnesium Diagnostic Findings Brain MRI 10/28/24 10:23 MR brain MS wo/w con CLINICAL HISTORY: Demyelinating disease. COMPARISON STUDY: Head CT October 21, 2024. MRI of the brain October 22, 2024. TECHNIQUE: Utilizing a 1.5 Fern magnet and dedicated coil, multiplanar, multi echo imaging of the brain was performed pre and postcontrast administration according to multiple sclerosis protocol. Intravenous injection of 9 cc of Gadavist was uneventful. FINDINGS: There are no foci of restricted diffusion to suggest acute infarct. No acute intracranial hemorrhage, midline shift or mass effect is present. Ventricular system is normal. Basal cisterns are patent. Flow-voids for the major intracranial vessels are present. There is no intracranial mass or pathologic enhancement. There is no parenchymal enhancement to suggest active demyelination. Multiple white matter T2 hyperintense foci have slightly progressed since MRI of April 23, 2023. There is no associated enhancement. T2 hyperintensity within the cervical cord at the C2-C3 level is better depicted on the cervical spine MRI which will be reported separately. There is no associated cord enhancement. Calvarial signal is normal. IMPRESSION: 1. No acute intracranial findings. 2. Minimal increase in scattered white matter T2 hyperintense foci since MRI of April 23, 2023. These are indeterminate and could represent demyelinating disease or small vessel disease. No evidence for active demyelination. 3. Increased T2 signal within the cord at the C2-C3 level, better depicted on the MRI of the cervical spine. This is highly suggestive of a demyelinating disease such as multiple sclerosis. ACT 112: Negative or not required by law. Electronically signed by: Mu Arriaza M.D. 10/28/2024 1:50 PM Cervical Spine MRI 10/28/24 10:23 MR cervical spine wo/w con CLINICAL HISTORY: Demyelinating disease COMPARISON STUDY: None available TECHNIQUE: Multiplanar MRI of the cervical spine was performed using various pulse sequences before and after 9 cc of intravenous gadolinium. FINDINGS: Image quality is limited by motion degradation and body habitus. There is increased signal intensity within cervical spinal cord T2 and STIR images from C2 to the C3-4 level. There is no cord enlargement associated with this signal abnormality. There is no associated gadolinium enhancement. C2-3 level and C3-4 level are grossly negative. There is a small central disc protrusion at C4-5 with cephalic extension behind the posterior inferior aspect of the C4 vertebral body the midline. This causes minimal effacement of the ventral aspect of the thecal sac without significant cord compression. C5-6 level demonstrates a central disc osteophyte protrusion in conjunction with a congenital cervical spinal canal narrowing resulting in an AP canal measurement of 7 mm. C6-7 level demonstrates a similar central disc osteophyte protrusion resulting in a narrow central canal measuring 7 mm. C7-T1 level is grossly negative. I cannot confirm myelomalacia associated with the C5-6 and C6-7 stenoses on the present examination. IMPRESSION: Increased T2 cord signal intensity on the T2 weighted and STIR- weighted sequences consistent with a demyelinating process at the C2 and C3 level. No evidence of gadolinium enhancement or mass effect. Cervical spinal stenosis at C5-6 and C6-7 mild to moderate severity with no definite myelomalacia identified on the present study. Please be advised that Image quality is hampered by motion and body habitus. ACT 112: Negative or not required by law. Electronically signed by: Shital Crook M.D. 10/28/2024 1:55 PM Hand X-Ray 10/28/24 14:31 XR hand RT 2V CLINICAL HISTORY: multiple swollen small joints COMPARISON: None FINDINGS: No acute fracture or dislocation. There are mild scattered degenerative changes without erosions. IMPRESSION: No acute findings. ACT 112: Negative or not required by law. Electronically signed by: Eliecer Amaral M.D. 10/28/2024 3:26 PM Wrist X-Ray 10/28/24 14:31 XR wrist RT 2V CLINICAL HISTORY: acute swelling; gout?CPPD?other? COMPARISON: None FINDINGS: Alignment of the right wrist is anatomic. Soft tissue swelling is present. There are no fractures. There are no osseous lesions. There is moderate joint space narrowing and osteophytosis of the right first carpometacarpal joint. There is mild radiocarpal joint osteoarthritis. No bony erosions are identified. There is minimal chondrocalcinosis within the TFCC. IMPRESSION: 1. No fracture or dislocation within the right wrist. 2. 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 Mild radiocarpal joint osteoarthritis. 3. Right wrist soft tissue swelling. ACT 112: Negative or not required by law. Electronically signed by: Mu Arriaza M.D. 10/28/2024 3:24 PM PG Care Time/CCT Total # of Minutes Spent Total Time Spent with Patient: Total time spent is greater than 50% in coordination of care (as documented) at patient's floor/unit and/or counseling patient: Coding Level of Care Code 06287 SUB INP/OBS CARE 3/50MIN Diagnoses Septic shock A41.9; R65.21 Acute UTI N39.0 Seizure-like activity R56.9 Carotid stenosis, right I65.21 CARLIN (acute kidney injury) N17.9 Elevated troponin R79.89 Acute hypercapnic respiratory failure J96.02 Acute metabolic encephalopathy G93.41 Demyelinating disease of central nervous system G37.9 Acute on chronic heart failure with preserved ejection fraction (HFpEF) I50.33 Coronary artery disease I25.10 Uncontrolled type 2 diabetes mellitus with hyperglycemia E11.65 Paroxysmal atrial flutter I48.92
[2024-10-28] MEDS: FUROSEMIDE INJ 20 MG/2 ML VIAL IV ONE (14:34)
--- NOTE | 2024-10-28 15:25 | XRay Report ---
XR wrist RT 2V CLINICAL HISTORY: acute swelling; gout?CPPD?other? COMPARISON: None FINDINGS: Alignment of the right wrist is anatomic. Soft tissue swelling is present. There are no fr actures. There are no osseous lesions. There is moderate joint space narrowing and osteophytosis of t he right first carpometacarpal joint. There is mild radiocarpal joint osteoarthritis. No bony erosion s are identified. There is minimal chondrocalcinosis within the TFCC. IMPRESSION: 1. No fracture or dislocation within the right wrist. 2. 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 Mild radiocarpal joint osteoarth ritis. 3. Right wrist soft tissue swelling. ACT 112: Negative or not required by law. Electronically signed by: Mu Arriaza M.D. 10/28/2024 3:24 PM
--- NOTE | 2024-10-28 15:27 | XRay Report ---
XR hand RT 2V CLINICAL HISTORY: multiple swollen small joints COMPARISON: None FINDINGS: No acute fracture or dislocation. There are mild scattered degenerative changes without er osions. IMPRESSION: No acute findings. ACT 112: Negative or not required by law. Electronically signed by: Eliecer Amaral M.D. 10/28/2024 3:26 PM
[2024-10-28] MEDS: BACLOFEN 10 MG TAB PO SCH (22:21)
[2024-10-29 06:19] LABS: BUN Creatinine Ratio 19.6 (10-20); Creatinine Clr Calc Pharmacy 60.8 ml/min; Magnesium 1.7 mg/dl (1.7-2.4)
[2024-10-29] MEDS: FUROSEMIDE INJ 20 MG/2 ML VIAL IV ONE (09:14)
--- NOTE | 2024-10-29 11:14 | Neurology Progress Note ---
Date of Service October 29, 2024 Assessment & Plan (1) Demyelinating disease of central nervous system: (2) Dystonia: Plan Case discussed with hospitalist. She will need a lumbar puncture with MS panel. Plavix will need to be held for 5 days. Patient has been having dystonic spasms right hand, arm, and sometimes leg. I believe her dystonic spasms are related to chronic cervical spinal cord demyelination. May continue with baclofen as ordered, may uptitrate as necessary. She does not require Keppra at this time. This medication may be discontinued. As above, this patient has possible multiple sclerosis with evidence of chronic foci of demyelination in the brain and cervical spinal cord in a pattern consistent with MS. Clinically, she has been having intermittent dystonic spasms for quite some time, preceding this hospitalization. She also has developed ambulatory dysfunction and urinary incontinence. If her lumbar puncture results with MS panel are consistent with MS, would need to consider starting disease modifying therapy. A negative lumbar puncture would potentially suggest a low risk for progression and a disease modifying therapy may not be needed although would need ongoing monitoring. This patient also has a severe stenosis of the right internal carotid artery and has been following with vascular surgery. There is no indication that this right carotid lesion has been symptomatic recently. She may restart Plavix after completion of lumbar puncture. Admission and Anticipated Discharge Date Admission Date: October 21, 2024 Subjective Follow-up regarding demyelinating disease, possible multiple sclerosis The patient is resting comfortably in bed at this time, does not have any new neurological complaints. She underwent repeat gadolinium-enhanced MRI of the brain and cervical spine yesterday. I independently reviewed these images. There are areas of T2/FLAIR hyperintensity potentially consistent with foci of chronic demyelination within the right cerebellar hemisphere and both cerebral hemispheres, periventricular, subcortical, and juxtacortical distribution. There are several perpendicularly oriented periventricular lesions. There is a focus of chronic demyelination within the cervical spinal cord at C2-3 as well. There is no abnormal postcontrast enhancement. Results & Data Vital Signs (Past 12 Hours) Vital Signs Temp Pulse Pulse Resp BP Pulse Ox O2 Del Method 10/29/24 07:53 Room Air 10/29/24 07:27 36.6 C 96 H 16 132/82 91 Room Air 10/29/24 07:13 95 H 10/29/24 02:40 36.8 C 91 H 18 144/90 H 92 Room Air 10/28/24 23:00 92 H Laboratory Results Vitamin B12 level 1081, angiotensin-converting enzyme pending, serum copper pending, rheumatoid factor, KAILA, and ANCA pending, Treponema pallidum antibody negative, Lyme screen negative. 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 She has mild ataxia [id number] on the right. Coding Level of Care Code 62368 SUB INP/OBS CARE 3/50MIN Diagnoses Demyelinating disease of central nervous system G37.9 Dystonia G24.9 Time Spent (min) 50 Comment Total time includes patient contact, chart review, counseling, note preparation
--- NOTE | 2024-10-29 13:53 | Pharmacy Report ---
Pharmacy Glycemic Short Note 2 - Date of Service October 29, 2024 - Glycemic Short BSG Results (Last 24 hours): 10/28/24 10/28/24 10/29/24 16:53 20:21 05:37 Glucose 136 H POC Glucose 141 H 141 H 10/29/24 10/29/24 08:16 11:58 Glucose POC Glucose 131 H 137 H OUTPATIENT ANTIDIABETIC REGIMEN: * Lantus 18 units SQ BID HbA1C: 7.8% (08/11/24) ASSESSMENT: 10/29/24 * SZ had 30 units of insulin yesterday * 10 units glargine * 20 units aspart * BSGs within goal range, no changes made. 10/27/24: * Blood sugars reasonably well-controlled over past 72 hours * Receiving ~30 units of insulin/day * Do not anticipate any changes to glycemic regimen today 10/24: * BSGs largely within goal the last 24h: 158-960-352-148mg/dl. Received 5 units of basal and 4 units of bolus insulin yesterday. * Continues with no PO intake and ceftriaxone. * Continue Lantus BID per scale depending on BSG until more consistently tolerating PO intake. Novolog 30/08 ACHS. 10/22: * Pt is a 68 year old female admitted with UTI and seizure like activity. History of DM2 on insulin therapy @ home. Pharmacy consulted to assist with inpatient glycemic management. * BSGs [phone]/dL since admission. No insulin administered yesterday. * Ordered clear liquid diet, however minimal PO intake. Receiving IV antibiotics. * Agree with Lantus 8 units X 1 dose this AM - will plan for a scale regimen moving forward depending on BSG. Novolog ACHS moderate stress scale. PLAN FOR INPATIENT GLYCEMIC CONTROL: * Hold outpatient oral diabetes medications * Basal insulin * Lantus 10 units SC daily * Bolus insulin * NovoLog per scale ACHS or Q6hrs while NPO * Goal Range: Low 110 mg/dL - High 140 mg/dL * Correction Factor: 25 mg/dL/unit * Nutritional / Prandial insulin per carb ratio of 1 unit per 9 grams CHO consumed
--- NOTE | 2024-10-29 15:48 | Hospitalist Progress Note ---
Date of Service October 29, 2024 Assessment & Plan (1) Septic shock: Plan: 68yo female with recently diagnosed UTI, CHF, T2DM, HTN, hypercholesterolemia, CAD, and chronic leg/back pain presenting to ED via EMS for seizure-like activity and confusion, initially starting 0300 the day of arrival and worsening in severity throughout the day. her describes limb shaking. Upon ER presentation was in profound shock requiring admission to the ICU. source - urinary tract as in #2 below required ICU admission early in the hospitalization due to need for pressors initially was on norepinephrine - weaned off by 10/22, then back on overnight of 10/23-10/24, then weaned off for good some of her BP meds have been resumed albeit at lower doses (2) Acute UTI: Plan: 2nd pansensitive klebsiella initially on IV abx (rocephin / zosyn), now over to PO cefuroxime starting on 10/27 thus, today is day #8 of effective abx therapy CT a/p on hospital day #1 showed - "Nonspecific bilateral perinephric fat stranding. Mild bilateral hydroureteronephrosis without obstructing stone identified. Findings may be secondary to infection." In light of the CT we are treating for possible pyelonephritis - especially given how ill she was at the start of her hospitalization thus, Rx for total of 14 days (3) Seizure-like activity: Plan: question of started on keppra 500mg BID for such early in the admission (10/23/24) EEG: Mildly abnormal study due to diffuse slowing at times but no epileptic discharges episodes may be more do dystonic reactions / myoclonus rather than true seizure activity [facility] Neurology feels we can stop the Keppra - it has been discontinued (4) Carotid stenosis, right: Plan: initially dx 03/2024 on CTA neck severe stenosis (short segment) seen by vascular surgery this admission cont statin cont plavix cont asa f/u 6 months for surveillance (5) CARLIN (acute kidney injury): Plan: sepsis-associated ATN resolved Peak Cr 1.45 now 1 (6) Elevated troponin: Plan: Myocardial demand ischemia due to septic shock no evidence of ACS HS trop peaked at 317 echo 10/23 - poor quality but nl LV function, mild conc LVH, no significant valvular disease (7) Acute hypercapnic respiratory failure: Plan: 10/22 - resolved with BiPAP & naloxone concern for sleep apnea could neurological issues from c-spine disease (see below) be contributing ?? continue nocturnal BiPAP as tolerated consider overnight oximetry study prior to discharge consider AM ABG to try and qualify her for BiPAP upon discharge (8) Acute metabolic encephalopathy: Plan: resolved 2nd to septic shock, hypercapnia, etc. back to baseline (9) Demyelinating disease of central nervous system: Plan: 10/27 cervical spine MRI concerning for demyelinating disease appreciate input from Dr Bahena, [facility] Neurology he advised repeat MRI c-spine & brain w/ and w/o contrast these repeat MRIs are concerning for MS or similar disease copper level, B12, KAILA, RPR, Lyme, etc sent/pending needs LP, but plavix will need to be held for at least 5 days patient made aware of the above appreciate Dr Bahena's assistance for dystonia started baclofen 5mg BID (10) Acute on chronic heart failure with preserved ejection fraction (HFpEF): Plan: improving cont diuresis - give 20mg IV x 1 of lasix again today suspect we are near-euvolemia repeat BMP am (11) Coronary artery disease: Plan: Prior stents in the LAD x3, proximal RCA, and proximal posterolateral branch remains on DAPT cont statin cont meto succ no evidence of ACS or ischemic symptoms (12) Uncontrolled type 2 diabetes mellitus with hyperglycemia: Plan: HbA1C 08/2024 -- 7.8% cont lantus cont novolog appreciate pharmacy glycemic team assistance (13) Paroxysmal atrial flutter: Plan: 10/23/24 - episode of such while in ICU terminated no recurrence since then cont metoprolol succ Plan right wrist/hand pain - checked x-rays - no fractures, no CPPD, etc. improved swelling today on exam * Urinary incontinence - oxybutynin, Solifenacin - both on held; has riojas in place * HTN - cont meto succ; imdur on hold * hyperlipidemia - cont rosuvastatin * restless leg syndrome - pramipexole is on hold; consider resuming * DVT prophylaxis - cont enoxaparin 40 daily cont PT, OT ultimate dispo - rehab - [facility] in [place]? 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 a little easier today denies spasms denies dyspnea eating better we discussed rehab- she is hoping for the [facility] rehab in [place] as it is closer to her family in [place] Review of Systems Review of Systems: gen - no fevers or chills cv - no chest pain pulm - no dyspnea GI - no abd pain or N/V; did have 2 loose stools today Physical Exam Physical Exam: gen - NAD, lying comfortably in bed flat mouth - MMM heart - RRR, s1 s2, no murmur lungs - CTA b/l abd - soft NT ND BS+ musculo - swelling in right wrist and hand improved ext - no edema, pulses b/l feet 2+ neuro - handgrip on right 4/5 - a little better today; handgrip on left 5/5; no facial droop; speech clear/fluent Results & Data Results & Data Vital Signs (Past 12 Hours) Vital Signs Temp Pulse Pulse Resp BP Pulse Ox O2 Del Method 10/29/24 15:22 36.4 C L 87 18 112/63 92 Room Air 10/29/24 14:21 96 H 10/29/24 11:07 36.6 C 91 H 18 118/73 94 Room Air 10/29/24 07:53 Room Air 10/29/24 07:27 36.6 C 96 H 16 132/82 91 Room Air 10/29/24 07:13 95 H Laboratory Results Laboratory Results - last 24 hr 10/29/24 10/29/24 10/29/24 05:37 08:16 11:58 Sodium 137 Potassium 4.0 Chloride 103 Carbon Dioxide 25 Anion Gap 9 BUN 20 Creatinine 1.02 Est Cr Clr Drug Dosing 60.8 eGFR 60.67 BUN/Creatinine Ratio 19.6 Glucose 136 H POC Glucose 131 H 137 H Calcium 9.0 Magnesium 1.7 Angiotensin Convert Enz Pending Vitamin B12 1081 H Stl C. diff Tox B Gene Serum Copper Pending Rheumatoid Factor Pending KAILA Screen Pending ANCA Pending Treponema pallidum Ab Negative Lyme Disease Screen Negative PG Care Time/CCT Total # of Minutes Spent Total Time Spent with Patient: Total time spent is greater than 50% in coordination of care (as documented) at patient's floor/unit and/or counseling patient: Coding Level of Care Code 27423 SUB INP/OBS CARE 3/50MIN Diagnoses Septic shock A41.9; R65.21 Acute UTI N39.0 Seizure-like activity R56.9 Carotid stenosis, right I65.21 CARLIN (acute kidney injury) N17.9 Elevated troponin R79.89 Acute hypercapnic respiratory failure J96.02 Acute metabolic encephalopathy G93.41 Demyelinating disease of central nervous system G37.9 Acute on chronic heart failure with preserved ejection fraction (HFpEF) I50.33 Coronary artery disease I25.10 Uncontrolled type 2 diabetes mellitus with hyperglycemia E11.65 Paroxysmal atrial flutter I48.92
[2024-10-30 06:08] LABS: BUN Creatinine Ratio 25.3 (10-20); Calcium 9.1 mg/dl (8.6-10.3); Creatinine Clr Calc Pharmacy 61.4 ml/min; Potassium 3.8 mmol/L (3.5-5.1)
--- NOTE | 2024-10-30 19:24 | Hospitalist Progress Note ---
Date of Service October 30, 2024 Assessment & Plan (1) Septic shock: Plan: 68yo female with recently diagnosed UTI, CHF, T2DM, HTN, hypercholesterolemia, CAD, and chronic leg/back pain presenting to ED via EMS for seizure-like activity and confusion, initially starting 0300 the day of arrival and worsening in severity throughout the day. her describes limb shaking. Upon ER presentation was in profound shock requiring admission to the ICU. source - urinary tract as in #2 below required ICU admission early in the hospitalization due to need for pressors initially was on norepinephrine - weaned off by 10/22, then back on overnight of 10/23-10/24, then weaned off for good some of her BP meds have been resumed albeit at lower doses (2) Acute UTI: Plan: 2nd pansensitive klebsiella initially on IV abx (rocephin / zosyn), now over to PO cefuroxime starting on 10/27 thus, today is day #9 of effective abx therapy CT a/p on hospital day #1 showed - "Nonspecific bilateral perinephric fat stranding. Mild bilateral hydroureteronephrosis without obstructing stone identified. Findings may be secondary to infection." In light of the CT we are treating for possible pyelonephritis - especially given how ill she was at the start of her hospitalization thus, Rx for total of 14 days (3) Seizure-like activity: Plan: question of started on keppra 500mg BID for such early in the admission (10/23/24) EEG: Mildly abnormal study due to diffuse slowing at times but no epileptic discharges episodes likely dystonic reactions / myoclonus rather than true seizure activity [facility] advised stopping keppra (4) Carotid stenosis, right: Plan: initially dx 03/2024 on CTA neck severe stenosis (short segment) seen by vascular surgery this admission cont statin cont plavix cont asa f/u 6 months for surveillance (5) CARLIN (acute kidney injury): Plan: sepsis-associated ATN resolved Peak Cr 1.45 now 0.9 BMP am for stability (6) Elevated troponin: Plan: Myocardial demand ischemia due to septic shock no evidence of ACS HS trop peaked at 317 echo 10/23 - poor quality but nl LV function, mild conc LVH, no significant valvular disease (7) Acute hypercapnic respiratory failure: Plan: 10/22 - resolved with BiPAP & naloxone concern for sleep apnea could neurological issues from c-spine disease (see below) be contributing ?? continue nocturnal BiPAP as tolerated consider overnight oximetry study prior to discharge consider AM ABG to try and qualify her for BiPAP upon discharge (8) Acute metabolic encephalopathy: Plan: resolved 2nd to septic shock, hypercapnia, etc. back to baseline (9) Demyelinating disease of central nervous system: Plan: 10/27 cervical spine MRI concerning for demyelinating disease appreciate input from Dr Bahena, [facility] Neurology he advised repeat MRI c-spine & brain w/ and w/o contrast these repeat MRIs are concerning for MS or similar disease copper level, B12, KAILA, RPR, Lyme, etc sent/pending needs LP, but plavix will need to be held for at least 5 days patient made aware of the above appreciate Dr Bahena's assistance for dystonia started baclofen 5mg BID tolerating such (10) Acute on chronic heart failure with preserved ejection fraction (HFpEF): Plan: resolved no further IV diuretics appears euvolemic today repeat BMP am (11) Coronary artery disease: Plan: Prior stents in the LAD x3, proximal RCA, and proximal posterolateral branch cont asa cont statin cont meto succ holding plavix for LP next week no evidence of ACS or ischemic symptoms (12) Uncontrolled type 2 diabetes mellitus with hyperglycemia: Plan: HbA1C 08/2024 -- 7.8% cont lantus cont novolog appreciate pharmacy glycemic team assistance (13) Paroxysmal atrial flutter: Plan: 10/23/24 - episode of such while in ICU terminated no recurrence since then cont metoprolol succ Plan right wrist/hand pain - checked x-rays - no fractures, no CPPD, etc. pain/swelling resolved diarrhea - abx-associated - c diff negative; diarrhea improved * Urinary incontinence - oxybutynin, Solifenacin - both on held; has riojas in place; was seen by urology group in [place] recently; she recalls her PVR was good, was told she was emptying her bladder * HTN - cont meto succ; imdur on hold * hyperlipidemia - cont rosuvastatin * restless leg syndrome - pramipexole is on hold; consider resuming * DVT prophylaxis - cont enoxaparin 40 daily cont PT, OT care d/w pt's by phone 10/29 and updated at bedside today dispo - [facility] - likely tomorrow ([facility]) Admission and Anticipated Discharge Date Admission Date: October 21, 2024 Subjective patient resting comfortably in bed pt's & grand-daughter at bedside we discussed Tx to [facility] tomorrow for rehab we discussed trying to remove her riojas catheter before d/c; discussed increased infectious risk with such patient's right hand swelling continues to improve right hand weakness and stiffness improved left leg weakness improved she feels better overall states "she looks better every day" tele w/ [facility] Review of Systems Review of Systems: gen - no fevers or chills neuro - no spasms of arms/hands CV - no chest pain pulm - no dyspnea Physical Exam Physical Exam: gen - NAD, lying comfortably in bed, looks good today mouth - MMM heart - RRR, s1 s2, no murmur lungs - CTA b/l abd - soft NT ND BS+ musculo - swelling in right wrist and hand resolved ext - no edema, pulses b/l feet 2+ neuro - handgrip on right 4/5; handgrip on left 5/5; left hip flexion 3-4/5 -- improved gu - riojas in place Results & Data Results & Data Vital Signs (Past 12 Hours) Vital Signs Temp Pulse Pulse Resp BP BP Pulse Ox 10/30/24 16:26 37.3 C 87 18 139/82 90 10/30/24 15:00 116 H 10/30/24 11:23 36.3 C L 94 H 18 145/79 H 90 10/30/24 08:14 10/30/24 07:28 36.7 C 91 H 18 136/71 91 O2 Del Method 10/30/24 16:26 Room Air 10/30/24 15:00 10/30/24 11:23 Room Air 10/30/24 08:14 Room Air 10/30/24 07:28 Room Air Laboratory Results Laboratory Results - last 24 hr 10/29/24 10/30/24 10/30/24 20:14 00:00 05:22 Sodium 137 Potassium 3.8 Chloride 104 Carbon Dioxide 24 Anion Gap 9 BUN 25 H Creatinine 0.99 Est Cr Clr Drug Dosing 61.4 eGFR 62.89 BUN/Creatinine Ratio 25.3 H Glucose 139 H POC Glucose 159 H Calcium 9.1 Stl C. diff Tox B Gene Negative Cdiff Gene 10/30/24 10/30/2425 08:05 12:17 17:14 Sodium Potassium Chloride Carbon Dioxide Anion Gap BUN Creatinine Est Cr Clr Drug Dosing eGFR BUN/Creatinine Ratio Glucose POC Glucose 141 H 164 H 149 H Calcium Stl C. diff Tox B Gene PG Care Time/CCT Total # of Minutes Spent Total Time Spent with Patient: Total time spent is greater than 50% in coordination of care (as documented) at patient's floor/unit and/or counseling patient: Coding Level of Care Code 60691 SUB INP/OBS CARE 2/35MIN Diagnoses Septic shock A41.9; R65.21 Acute UTI N39.0 Seizure-like activity R56.9 Carotid stenosis, right I65.21 CARLIN (acute kidney injury) N17.9 Elevated troponin R79.89 Acute hypercapnic respiratory failure J96.02 Acute metabolic encephalopathy G93.41 Demyelinating disease of central nervous system G37.9 Acute on chronic heart failure with preserved ejection fraction (HFpEF) I50.33 Coronary artery disease I25.10 Uncontrolled type 2 diabetes mellitus with hyperglycemia E11.65 Paroxysmal atrial flutter I48.92
[2024-10-30] MEDS: ONDANSETRON INJ 2 MG/ML 2 ML VIAL IV PRN (23:37)
[2024-10-31] MEDS: SODIUM CHLORIDE 0.9% 250 ML IV ONE ×2 (02:33→05:42)
[2024-10-31 03:16] LABS: Adenovirus F 40/41 PCR Not Detected (NotDetected); Astrovirus PCR Not Detected (NotDetected); Campylobacter PCR Not Detected (NotDetected); Cryptosporidium PCR Not Detected (NotDetected); Cyclospora cayetanensis PCR Not Detected (NotDetected); Entamoeba histolytica PCR Not Detected (NotDetected); Enteroaggregative E.coli(EAEC) Not Detected (NotDetected); Enteropathogenic E.coli (EPEC) Not Detected (NotDetected); Enterotoxigenic E.coli (ETEC) Not Detected (NotDetected); Giardia lamblia PCR Not Detected (NotDetected); Plesiomonas shigelloides PCR Not Detected (NotDetected); Rotavirus A PCR Not Detected (NotDetected); Salmonella PCR Not Detected (NotDetected); Sapovirus PCR Not Detected (NotDetected); Shiga-like Toxin E.coli (STEC) Not Detected (NotDetected); Shigella/Enteroinvasive E.coli Not Detected (NotDetected); Vibrio cholerae PCR Not Detected (NotDetected); Vibrio species PCR Not Detected (NotDetected); Yersinia enterocolitica PCR Not Detected (NotDetected)
[2024-10-31] MEDS: METOPROLOL TARTRATE 1 MG/ML VIAL IV STA (03:20)
[2024-10-31 03:54] LABS: Norovirus GI/GII PCR DETECTED (NotDetected)
[2024-10-31] MEDS: LOPERAMIDE HCL 2 MG CAP PO STA (04:12)
[2024-10-31 06:52] LABS: Hematocrit (blood only) 36.6 % (37.0-47.0); Hemoglobin 12.1 g/dl (12.0-16.0); Mean Corpuscular Hemoglobin 27.2 pg (25.0-34.0); Mean Corpuscular Hgb Conc 33.1 g/dL (32.0-36.0); Mean Corpuscular Volume 82.2 fL (80.0-100.0); Mean Platelet Volume 9.2 fL (9.4-12.4); Platelet Count 425 K/uL (130-400); RDW Coefficient of Variation 14.8 % (11.5-14.5); RDW Standard Deviation 44.8 fL (36.4-46.3); Red Blood Count 4.45 M/uL (4.20-5.40); White Blood Count 9.78 K/ul (4.8-10.8)
[2024-10-31 07:14] LABS: BUN Creatinine Ratio 25.5 (10-20); Calcium 9.1 mg/dl (8.6-10.3); Creatinine Clr Calc Pharmacy 59.1 ml/min; Magnesium 1.7 mg/dl (1.7-2.4); Potassium 4.3 mmol/L (3.5-5.1)
[2024-10-31 07:24] LABS: Basophils # (auto) 0.01 K/uL (0.00-0.20); Basophils % (auto) 0.1 %; Lymphocytes # (auto) 0.48 K/uL (1.20-3.40); Lymphocytes % (auto) 4.9 %; Monocytes # (auto) 0.25 K/uL (0.11-0.59); Monocytes % (auto) 2.6 %; Neutrophils # (auto) 8.84 K/uL (1.40-6.50); Neutrophils % (auto) 90.4 %; RBC Morphology Unremarkable
[2024-10-31] MEDS: MAGNESIUM SULFATE / D5W 1 GM/100 ML BAG IV SCH (08:21)
[2024-10-31] MEDS: SODIUM CHLORIDE 0.9% 1,000 ML IV SCH (09:48)
--- NOTE | 2024-10-31 14:38 | Pharmacy Report ---
Pharmacy Glycemic Short Note 2 - Date of Service October 31, 2024 - Glycemic Short BSG Results (Last 24 hours): 10/30/24 10/30/24 10/31/24 17:14 19:54 06:34 Glucose 167 H POC Glucose 149 H 137 H 10/31/24 10/31/24 07:59 12:39 Glucose POC Glucose 153 H 137 H OUTPATIENT ANTIDIABETIC REGIMEN: * Lantus 18 units SQ BID HbA1C: 7.8% (08/11/24) ASSESSMENT: 10/31/24 * BSGs remain stable on ~30 units of insulin daily for the past several days. * No changes required at this time. 10/29/24 * SZ had 30 units of insulin yesterday * 10 units glargine * 20 units aspart * BSGs within goal range, no changes made. 10/27/24: * Blood sugars reasonably well-controlled over past 72 hours * Receiving ~30 units of insulin/day * Do not anticipate any changes to glycemic regimen today 10/24: * BSGs largely within goal the last 24h: 110-124-985-148mg/dl. Received 5 units of basal and 4 units of bolus insulin yesterday. * Continues with no PO intake and ceftriaxone. * Continue Lantus BID per scale depending on BSG until more consistently tolerating PO intake. Novolog 30/08 ACHS. 10/22: * Pt is a 68 year old female admitted with UTI and seizure like activity. History of DM2 on insulin therapy @ home. Pharmacy consulted to assist with inpatient glycemic management. * BSGs [phone]/dL since admission. No insulin administered yesterday. * Ordered clear liquid diet, however minimal PO intake. Receiving IV a ntibiotics. * Agree with Lantus 8 units X 1 dose this AM - will plan for a scale regimen moving forward depending on BSG. Novolog ACHS moderate stress scale. PLAN FOR INPATIENT GLYCEMIC CONTROL: * Hold outpatient oral diabetes medications * Basal insulin * Lantus 10 units SC daily * Bolus insulin * NovoLog per scale ACHS or Q6hrs while NPO * Goal Range: Low 110 mg/dL - High 140 mg/dL * Correction Factor: 25 mg/dL/unit * Nutritional / Prandial insulin per carb ratio of 1 unit per 9 grams CHO consumed
--- NOTE | 2024-10-31 14:39 | Electrocardiogram Report ---
Test Reason : Blood Pressure : */* mmHG Vent. Rate : 130 BPM Atrial Rate : 130 BPM P-R Int : 136 ms QRS Dur : 82 ms QT Int : 310 ms P-R-T Axes : 37 41 8 degrees QTcB Int : 456 ms Sinus tachycardia T wave abnormality, consider inferior ischemia Abnormal ECG When compared with ECG of 23-Oct-2024 13:57, No significant change was found Confirmed by Niko Navarrete ([id number]) on 10/31/2024 2:39:34 PM Referred By: REFERRED SELF Confirmed By: Niko Navarrete
--- NOTE | 2024-10-31 17:52 | Hospitalist Progress Note ---
Date of Service October 31, 2024 Assessment & Plan (1) Norovirus: Plan: severe vomiting/diarrhea started overnight c diff negative stool [employer] + for norovirus rectal tube placed due to poor mobility, skin breakdown/rash on buttocks, and given how copious the diarrhea was stool has already slowed down hopefully rectal tube can come out tomorrow downgrade diet to clears NS IV fluids supportive care of note - pt's reports that a family member had a GI illness about 2 weeks ago, and a grandson is now sick with same whether she had exposure outside the hospital or nosocomial exposure it does not matter - simply provide supportive care contact precautions (2) Septic shock: Plan: 68yo female with recently diagnosed UTI, CHF, T2DM, HTN, hypercholesterolemia, CAD, and chronic leg/back pain presenting to ED via EMS for seizure-like activity and confusion, initially starting 0300 the day of arrival and worsening in severity throughout the day. her describes limb shaking. Upon ER presentation was in profound shock requiring admission to the ICU. source - urinary tract as in #2 below required ICU admission early in the hospitalization due to need for pressors initially was on norepinephrine - weaned off by 10/22, then back on overnight of 10/23-10/24, then weaned off for good some of her BP meds have been resumed albeit at lower doses (3) Acute UTI: Plan: 2nd pansensitive klebsiella initially on IV abx (rocephin / zosyn), now over to PO cefuroxime starting on 10/27 thus, today is day #10 of effective abx therapy CT a/p on hospital day #1 showed - "Nonspecific bilateral perinephric fat stranding. Mild bilateral hydroureteronephrosis without obstructing stone identified. Findings may be secondary to infection." In light of the CT we are treating for possible pyelonephritis - especially given how ill she was at the start of her hospitalization thus, Rx for total of 14 days (4) Seizure-like activity: Plan: question of started on keppra 500mg BID for such early in the admission (10/23/24) EEG: Mildly abnormal study due to diffuse slowing at times but no epileptic discharges episodes likely dystonic reactions / myoclonus rather than true seizure activity [facility] Neurology advised stopping keppra (5) Carotid stenosis, right: Plan: initially dx 03/2024 on CTA neck severe stenosis (short segment) seen by vascular surgery this admission cont statin cont plavix cont asa f/u 6 months for surveillance (6) CARLIN (acute kidney injury): Plan: sepsis-associated ATN resolved Peak Cr 1.45 now 1 BMP am for stability (7) Elevated troponin: Plan: Myocardial demand ischemia due to septic shock no evidence of ACS HS trop peaked at 317 echo 10/23 - poor quality but nl LV function, mild conc LVH, no significant valvular disease (8) Acute hypercapnic respiratory failure: Plan: 10/22 - resolved with BiPAP & naloxone concern for sleep apnea could neurological issues from c-spine disease (see below) be contributing ?? continue nocturnal BiPAP as tolerated consider overnight oximetry study prior to discharge consider AM ABG to try and qualify her for BiPAP upon discharge (9) Acute metabolic encephalopathy: Plan: resolved 2nd to septic shock, hypercapnia, etc. back to baseline (10) Demyelinating disease of central nervous system: Plan: 10/27 cervical spine MRI concerning for demyelinating disease appreciate input from Dr Bahena, [facility] Neurology he advised repeat MRI c-spine & brain w/ and w/o contrast these repeat MRIs are concerning for MS or similar disease copper level, B12, KAILA, RPR, Lyme, etc sent/pending needs LP, but plavix will need to be held for at least 5 days patient made aware of the above appreciate Dr Bahena's assistance for dystonia started baclofen 5mg BID tolerating such (11) Acute on chronic heart failure with preserved ejection fraction (HFpEF): Plan: resolved no further IV diuretics appears volume contracted today from #1 above IV fluids to be started repeat BMP am (12) Coronary artery disease: Plan: Prior stents in the LAD x3, proximal RCA, and proximal posterolateral branch cont asa cont statin cont meto succ holding plavix for LP next week no evidence of ACS or ischemic symptoms (13) Uncontrolled type 2 diabetes mellitus with hyperglycemia: Plan: HbA1C 08/2024 -- 7.8% cont lantus cont novolog appreciate pharmacy glycemic team assistance (14) Paroxysmal atrial flutter: Plan: 10/23/24 - episode of such while in ICU terminated no recurrence since then cont metoprolol succ Plan * Urinary incontinence - oxybutynin, Solifenacin - both on held; has riojas in place; was seen by urology group in [place] recently; she recalls her PVR was good, was told she was emptying her bladder * HTN - cont meto succ; imdur on hold * hyperlipidemia - cont rosuvastatin * restless leg syndrome - pramipexole is on hold; consider resuming * DVT prophylaxis - cont enoxaparin 40 daily cont PT, OT care d/w pt's by phone 10/29 and again today, 10/31 dispo - [facility] - no discharge today due to #1 above Admission and Anticipated Discharge Date Admission Date: October 21, 2024 Subjective events of overnight reviewed patient had emesis followed by copious diarrhea the diarrhea was so severe that a rectal tube was placed was given 2 small NS boluses (250ml each) for tachycardia and dehydration this am she declined her meal during rounds she said "it was so horrible (the vomiting)" she asks if the rectal tube can be taken out denies abd pain denies dyspnea she is disappointed in this setback Review of Systems Review of Systems: gen - weak; no fever cv - no orthopnea pulm - no dyspnea GI - no further emesis Physical Exam Physical Exam: gen - NAD, lying comfortably in bed, looks weak/washed out mouth - MM mildly dry heart - tachy, s1 s2, no murmur lungs - CTA b/l abd - soft NT ND BS+ ext - no edema, pulses b/l feet 2+ Results & Data Results & Data Vital Signs (Past 12 Hours) Vital Signs Temp Pulse Pulse Resp BP BP Pulse Ox 10/31/24 16:05 36.4 C L 105 H 18 131/50 L 92 10/31/24 13:08 98 H 10/31/24 12:08 10/31/24 11:39 36.8 C 98 H 18 122/75 90 10/31/24 07:41 37.4 C 137 H 20 134/80 91 O2 Del Method 10/31/24 16:05 Room Air 10/31/24 13:08 10/31/24 12:08 Room Air 10/31/24 11:39 Room Air 10/31/24 07:41 Room Air Laboratory Results Laboratory Results - last 24 hr 10/30/24 10/31/24 10/31/24 19:54 01: 06:34 WBC 9.78 RBC 4.45 Hgb 12.1 Hct 36.6 L MCV 82.2 MCH 27.2 MCHC 33.1 RDW Std Deviation 44.8 RDW Coeff of Marshall 14.8 H Plt Count 425 H MPV 9.2 L Immature Gran % (Auto) 1.0 Neut % (Auto) 90.4 Lymph % (Auto) 4.9 Graves % (Auto) 2.6 Eos % (Auto) 1.0 Baso % (Auto) 0.1 Neut # (Auto) 8.84 H Lymph # (Auto) 0.48 L Graves # (Auto) 0.25 Eos # (Auto) 0.10 Baso # (Auto) 0.01 Immature Gran # (Auto) 0.10 RBC Morphology Unremarkable Sodium 136 Potassium 4.3 Chloride 105 Carbon Dioxide 22 Anion Gap 9 BUN 26 H Creatinine 1.02 Est Cr Clr Drug Dosing 59.1 eGFR 60.67 BUN/Creatinine Ratio 25.5 H Glucose 167 H POC Glucose 137 H Calcium 9.1 Magnesium 1.7 Stl C. cayetanensis PCR Not Detected Stool Rotavirus A PCR Not Detected Stl Adenov F 40/41 PCR Not Detected Stool Astrovirus (PCR) Not Detected Stool Campylobacter PCR Not Detected Stool Cryptosporidium PCR Not Detected Stl E.coli Shiga Tox PCR Not Detected Stl Enterotoxigenic E PCR Not Detected Stool EPEC (PCR) Not Detected Stool EAEC (PCR) Not Detected Stl E. histolytica PCR Not Detected Stool Giardia Lamblia PCR Not Detected Stool Salmonella PCR Not Detected Stool Sapovirus (PCR) Not Detected Stl P. shigelloides PCR Not Detected Stl Shigella/EIEC PCR Not Detected St Y.enterocolitica PCR Not Detected Stool Vibrio (PCR) Not Detected Stl Vibrio cholerae PCR Not Detected Stl Norovirus GI/GII PCR DETECTED A* 10/31/24 10/31/24 10/31/24 07:59 12:39 17:12 WBC RBC Hgb Hct MCV MCH MCHC RDW Std Deviation RDW Coeff of Marshall Plt Count MPV Immature Gran % (Auto) Neut % (Auto) Lymph % (Auto) Graves % (Auto) Eos % (Auto) Baso % (Auto) Neut # (Auto) Lymph # (Auto) Graves # (Auto) Eos # (Auto) Baso # (Auto) Immature Gran # (Auto) RBC Morphology Sodium Potassium Chloride Carbon Dioxide Anion Gap BUN Creatinine Est Cr Clr Drug Dosing eGFR BUN/Creatinine Ratio Glucose POC Glucose 153 H 137 H 117 H Calcium Magnesium Stl C. cayetanensis PCR Stool Rotavirus A PCR Stl Adenov F 40/41 PCR Stool Astrovirus (PCR) Stool Campylobacter PCR Stool Cryptosporidium PCR Stl E.coli Shiga Tox PCR Stl Enterotoxigenic E PCR Stool EPEC (PCR) Stool EAEC (PCR) Stl E. histolytica PCR Stool Giardia Lamblia PCR Stool Salmonella PCR Stool Sapovirus (PCR) Stl P. shigelloides PCR Stl Shigella/EIEC PCR St Y.enterocolitica PCR Stool Vibrio (PCR) Stl Vibrio cholerae PCR Stl Norovirus GI/GII PCR PG Care Time/CCT Total # of Minutes Spent Total Time Spent with Patient: Total time spent is greater than 50% in coordination of care (as documented) at patient's floor/unit and/or counseling patient: Coding Level of Care Code 15541 SUB INP/OBS CARE 3/50MIN Diagnoses Norovirus A08.11 Septic shock A41.9; R65.21 Acute UTI N39.0 Seizure-like activity R56.9 Carotid stenosis, right I65.21 CARLIN (acute kidney injury) N17.9 Elevated troponin R79.89 Acute hypercapnic respiratory failure J96.02 Acute metabolic encephalopathy G93.41 Demyelinating disease of central nervous system G37.9 Acute on chronic heart failure with preserved ejection fraction (HFpEF) I50.33 Coronary artery disease I25.10 Uncontrolled type 2 diabetes mellitus with hyperglycemia E11.65 Paroxysmal atrial flutter I48.92
[2024-11-01 06:01] LABS: BUN Creatinine Ratio 23.1 (10-20); Calcium 7.6 mg/dl (8.6-10.3); Creatinine Clr Calc Pharmacy 77.3 ml/min; Potassium 3.7 mmol/L (3.5-5.1)
[2024-11-01 08:22] LABS: Albumin Level 2.9 gm/dl (3.4-5.0)
[2024-11-01] MEDS: CALCIUM GLUCONATE 1,000 MG/60 ML BAG IV STA (10:45)
--- NOTE | 2024-11-01 16:38 | Hospitalist Progress Note ---
Date of Service November 01, 2024 Assessment & Plan (1) Norovirus: Plan: resolving rectal tube out advance diet to full liquids likely low fiber tomorrow stop IV fluids anti-emetics prn (2) Septic shock: Plan: 68yo female with recently diagnosed UTI, CHF, T2DM, HTN, hypercholesterolemia, CAD, and chronic leg/back pain presenting to ED via EMS for seizure-like activity and confusion, initially starting 0300 the day of arrival and worsening in severity throughout the day. her describes limb shaking. Upon ER presentation was in profound shock requiring admission to the ICU. source - urinary tract as in #2 below required ICU admission early in the hospitalization due to need for pressors initially was on norepinephrine - weaned off by 10/22, then back on overnight of 10/23-10/24, then weaned off for good some of her BP meds have been resumed albeit at lower doses (3) Acute UTI: Plan: 2nd pansensitive klebsiella initially on IV abx (rocephin / zosyn), now over to PO cefuroxime starting on 10/27 thus, today is day #11 of effective abx therapy CT a/p on hospital day #1 showed - "Nonspecific bilateral perinephric fat stranding. Mild bilateral hydroureteronephrosis without obstructing stone identified. Findings may be secondary to infection." In light of the CT we are treating for possible pyelonephritis - especially given how ill she was at the start of her hospitalization thus, Rx for total of 14 days (4) Seizure-like activity: Plan: question of started on keppra 500mg BID for such early in the admission (10/23/24) EEG: Mildly abnormal study due to diffuse slowing at times but no epileptic discharges episodes likely dystonic reactions / myoclonus rather than true seizure activity [facility] [place] advised stopping keppra (5) Carotid stenosis, right: Plan: initially dx 03/2024 on CTA neck severe stenosis (short segment) seen by vascular surgery this admission cont statin cont plavix cont asa f/u 6 months for surveillance (6) CARLIN (acute kidney injury): Plan: sepsis-associated ATN resolved Peak Cr 1.45 BMP am for stability (7) Elevated troponin: Plan: Myocardial demand ischemia due to septic shock no evidence of ACS HS trop peaked at 317 echo 10/23 - poor quality but nl LV function, mild conc LVH, no significant valvular disease (8) Acute hypercapnic respiratory failure: Plan: 10/22 - resolved with BiPAP & naloxone concern for sleep apnea could neurological issues from c-spine disease (see below) be contributing ?? continue nocturnal BiPAP as tolerated consider overnight oximetry study prior to discharge consider AM ABG to try and qualify her for BiPAP upon discharge (9) Acute metabolic encephalopathy: Plan: resolved 2nd to septic shock, hypercapnia, etc. back to baseline (10) Demyelinating disease of central nervous system: Plan: 10/27 cervical spine MRI concerning for demyelinating disease appreciate input from Dr Bahena, [facility] [place] [place] he advised repeat MRI c-spine & brain w/ and w/o contrast these repeat MRIs are concerning for MS or similar disease copper level, B12, KAILA, RPR, Lyme, etc sent/pending needs LP, but plavix will need to be held for at least 5 days patient made aware of the above appreciate Dr Bahena's assistance for dystonia started baclofen 5mg BID increase such to 10mg BID today calcium, event corrected for low albumin, is still low & could be making spasms worse - thus, calcium gluconate 1gm IV x 1 repeat calcium in am (11) Acute on chronic heart failure with preserved ejection fraction (HFpEF): Plan: resolved no further IV diuretics (12) Coronary artery disease: Plan: Prior stents in the LAD x3, proximal RCA, and proximal posterolateral branch cont asa cont statin cont meto succ holding plavix for LP next week no evidence of ACS or ischemic symptoms (13) Uncontrolled type 2 diabetes mellitus with hyperglycemia: Plan: HbA1C 08/2024 -- 7.8% cont lantus cont novolog appreciate pharmacy glycemic team assistance (14) Paroxysmal atrial flutter: Plan: 10/23/24 - episode of such while in ICU terminated no recurrence since then cont metoprolol succ Plan * Urinary incontinence - oxybutynin, Solifenacin - both on held; has riojas in place; was seen by urology group in [place] recently; she recalls her PVR was good, was told she was emptying her bladder * HTN - cont meto succ; imdur on hold * hyperlipidemia - cont rosuvastatin * restless leg syndrome - pramipexole is on hold; consider resuming * DVT prophylaxis - cont enoxaparin 40 daily cont PT, OT care d/w pt's by phone 10/29 and 10/31 dispo - [facility] next week - maybe Sunday following her LP Admission and Anticipated Discharge Date Admission Date: October 21, 2024 Subjective diarrhea resolved rectal tube is out no nausea no abd pain no vomiting still having spasms of arms/hands Review of Systems Review of Systems: cv - no cp pulm - no dyspnea GI - see HPI Physical Exam Physical Exam: gen - NAD, lying comfortably in bed, looks MUCH better today mouth - MMM heart - RRR, s1 s2, no murmur lungs - CTA b/l abd - soft NT ND BS+ ext - no edema, pulses b/l feet 2+ psych - awake/alert/oriented x 3 Results & Data Results & Data Vital Signs (Past 12 Hours) Vital Signs Temp Pulse Pulse Resp BP Pulse Ox O2 Del Method 11/01/24 13:32 102 H 11/01/24 11:37 36.9 C 90 18 137/75 93 Room Air 11/01/24 11:35 Room Air 11/01/24 07:49 36.7 C 93 H 18 133/75 94 Room Air 11/01/24 05:54 90 Laboratory Results Laboratory Results - last 48 hr 10/31/24 10/31/24 10/31/24 12:39 17:12 20:23 Sodium Potassium Chloride Carbon Dioxide Anion Gap BUN Creatinine Est Cr Clr Drug Dosing eGFR BUN/Creatinine Ratio Glucose POC Glucose 137 H 117 H 121 H Calcium Magnesium Albumin 11/01/24 11/01/24 11/01/24 05:33 08:07 12:18 Sodium 135 L Potassium 3.7 Chloride 106 Carbon Dioxide 23 Anion Gap 6 BUN 18 Creatinine 0.78 Est Cr Clr Drug Dosing 77.3 eGFR 83.72 BUN/Creatinine Ratio 23.1 H Glucose 107 H POC Glucose 108 H 97 Calcium 7.6 L Magnesium 2.0 Albumin 2.9 L PG Care Time/CCT Total # of Minutes Spent Total Time Spent with Patient: Total time spent is greater than 50% in coordination of care (as documented) at patient's floor/unit and/or counseling patient: Coding Level of Care Code 59025 SUB INP/OBS CARE 2/35MIN Diagnoses Norovirus A08.11 Septic shock A41.9; R65.21 Acute UTI N39.0 Seizure-like activity R56.9 Carotid stenosis, right I65.21 CARLIN (acute kidney injury) N17.9 Elevated troponin R79.89 Acute hypercapnic respiratory failure J96.02 Acute metabolic encephalopathy G93.41 Demyelinating disease of central nervous system G37.9 Acute on chronic heart failure with preserved ejection fraction (HFpEF) I50.33 Coronary artery disease I25.10 Uncontrolled type 2 diabetes mellitus with hyperglycemia E11.65 Paroxysmal atrial flutter I48.92
[2024-11-01] MEDS: BACLOFEN 10 MG TAB PO SCH (19:57)
[2024-11-01] MEDS: LOPERAMIDE HCL 2 MG CAP PO STA (20:08)
[2024-11-02 06:52] LABS: BUN Creatinine Ratio 22.2 (10-20); Calcium 8.6 mg/dl (8.6-10.3); Creatinine Clr Calc Pharmacy 84.7 ml/min; Potassium 3.6 mmol/L (3.5-5.1)
[2024-11-02] MEDS: LANTUS PER UNIT CHARGE SC SCH (08:50)
[2024-11-02] MEDS: cefUROXime axetil 500 MG TAB PO SCH (11:10)
--- NOTE | 2024-11-02 12:59 | Pharmacy Report ---
Pharmacy Glycemic Short Note 2 - Date of Service November 02, 2024 - Glycemic Short BSG Results (Last 24 hours): 11/01/24 11/01/24 11/02/24 17:11 21:04 05:28 Glucose 92 POC Glucose 102 H 106 H 11/02/24 11/02/24 08:18 12:26 Glucose POC Glucose 129 H 90 OUTPATIENT ANTIDIABETIC REGIMEN: * Lantus 18 units SQ BID HbA1C: 7.8% (08/11/24) ASSESSMENT: 11/02: * Received 13 units yesterday, 10 were basal. BSGs 945-45-180-106 mg/dL. * AM fasting today was 129 mg/dL. Lunchtime down to 90 mg/dL. * Cut basal dose in half and loosened Novolog. 10/31/24 * BSGs remain stable on ~30 units of insulin daily for the past several days. * No changes required at this time. 10/29/24 * SZ had 30 units of insulin yesterday * 10 units glargine * 20 units aspart * BSGs within goal range, no changes made. 10/27/24: * Blood sugars reasonably well-controlled over past 72 hours * Receiving ~30 units of insulin/day * Do not anticipate any changes to glycemic regimen today 10/24: * BSGs largely within goal the last 24h: [id number]/dl. Received 5 units of basal and 4 units of bolus insulin yesterday. * Continues with no PO intake and ceftriaxone. * Continue Lantus BID per scale depending on BSG until more consistently tolerating PO intake. Novolog /11 ACHS. 10/22: * Pt is a 68 year old female admitted with UTI and seizure like activity. History of DM2 on insulin therapy @ home. Pharmacy consulted to assist with inpatient glycemic management. * BSGs [phone]/dL since admission. No insulin administered yesterday. * Ordered clear liquid diet, however minimal PO intake. Receiving IV antibiotics. * Agree with Lantus 8 units X 1 dose this AM - will plan for a scale regimen moving forward depending on BSG. Novolog ACHS moderate stress scale. PLAN FOR INPATIENT GLYCEMIC CONTROL: * Hold outpatient oral diabetes medications * Basal insulin * Lantus 5 units SC daily * Bolus insulin * NovoLog per scale ACHS or Q6hrs while NPO * Goal Range: Low 110 mg/dL - High 140 mg/dL * Correction Factor: 35 mg/dL/unit * Nutritional / Prandial insulin per carb ratio of 1 unit per 12 grams CHO consumed
--- NOTE | 2024-11-02 19:23 | Hospitalist Progress Note ---
Date of Service November 02, 2024 Assessment & Plan (1) Norovirus: Plan: resolved rectal tube out tolerating low fiber diet off IV fluids anti-emetics prn (2) Septic shock: Plan: 68yo female with recently diagnosed UTI, CHF, T2DM, HTN, hypercholesterolemia, CAD, and chronic leg/back pain presenting to ED via EMS for seizure-like activity and confusion, initially starting 0300 the day of arrival and worsening in severity throughout the day. her describes limb shaking. Upon ER presentation was in profound shock requiring admission to the ICU. source - urinary tract as in #2 below required ICU admission early in the hospitalization due to need for pressors initially was on norepinephrine - weaned off by 10/22, then back on overnight of 10/23-10/24, then weaned off for good some of her BP meds have been resumed albeit at lower doses (3) Acute UTI: Plan: 2nd pansensitive klebsiella initially on IV abx (rocephin / zosyn), now over to PO cefuroxime starting on 10/27 day #11 of effective abx therapy today CT a/p on hospital day #1 showed - "Nonspecific bilateral perinephric fat stranding. Mild bilateral hydroureteronephrosis without obstructing stone identified. Findings may be secondary to infection." In light of the CT we are treating for possible pyelonephritis - especially given how ill she was at the start of her hospitalization thus, Rx for total of 14 days (4) Seizure-like activity: Plan: question of started on keppra 500mg BID for such early in the admission (10/23/24) EEG: Mildly abnormal study due to diffuse slowing at times but no epileptic discharges episodes likely dystonic reactions / myoclonus rather than true seizure activity [facility] [place] stopping keppra (5) Carotid stenosis, right: Plan: initially dx 03/2024 on CTA neck severe stenosis (short segment) seen by vascular surgery this admission cont statin cont plavix cont asa f/u 6 months for surveillance (6) CARLIN (acute kidney injury): Plan: sepsis-associated ATN resolved Peak Cr 1.45 BMP today again stable (7) Elevated troponin: Plan: Myocardial demand ischemia due to septic shock no evidence of ACS HS trop peaked at 317 echo 10/23 - poor quality but nl LV function, mild conc LVH, no significant valvular disease (8) Acute hypercapnic respiratory failure: Plan: 10/22 - resolved with BiPAP & naloxone concern for sleep apnea could neurological issues from c-spine disease (see below) be contributing ?? needs formal sleep study as outpatient (9) Acute metabolic encephalopathy: Plan: resolved 2nd to septic shock, hypercapnia, etc. (10) Demyelinating disease of central nervous system: Plan: 10/27 cervical spine MRI concerning for demyelinating disease appreciate input from Dr Bahena, [facility] [facility] he advised repeat MRI c-spine & brain w/ and w/o contrast these repeat MRIs are concerning for MS or similar disease copper level, B12, KAILA, RPR, Lyme, etc sent/pending needs LP, but plavix will need to be held for at least 5 days LP ordered for 11/03/[address] Bahena's assistance for dystonia cont baclofen 10mg BID (11) Acute on chronic heart failure with preserved ejection fraction (HFpEF): Plan: resolved no further IV diuretics (12) Coronary artery disease: Plan: Prior stents in the LAD x3, proximal RCA, and proximal posterolateral branch cont asa cont statin cont meto succ holding plavix for LP next week no evidence of ACS or ischemic symptoms (13) Uncontrolled type 2 diabetes mellitus with hyperglycemia: Plan: HbA1C 08/2024 -- 7.8% cont lantus cont novolog appreciate pharmacy glycemic team assistance (14) Paroxysmal atrial flutter: Plan: 10/23/24 - episode of such while in ICU terminated no recurrence since then cont metoprolol succ Plan * Urinary incontinence - oxybutynin, Solifenacin - both on held; has riojas in place; was seen by urology group in [place] recently; she recalls her PVR was good, was told she was emptying her bladder * HTN - cont meto succ; imdur on hold * hyperlipidemia - cont rosuvastatin * restless leg syndrome - pramipexole is on hold; she has not had RLS symptoms thus will not resume at this time * DVT prophylaxis - cont enoxaparin 40 daily today but hold tomorrow's dose for LP cont PT, OT care d/w pt's by phone 10/29 and 10/31 and in person today at bedside dispo - [facility], hopefully tomorrow afternoon Admission and Anticipated Discharge Date Admission Date: October 21, 2024 Subjective no further diarrhea no abd pain eating and tolerating her meals no nausea/emesis couldn't sleep last night so she is tired spasms in arms improved w/ larger dose of baclofen Review of Systems Review of Systems: gen - no fevers cv - no chest pain, no orthopnea pulm - no dyspnea Physical Exam Physical Exam: gen - NAD, lying flat comfortably in bed, tired/weak mouth - MMM heart - RRR, s1 s2, no murmur lungs - CTA b/l abd - soft NT ND BS+ ext - no edema, pulses b/l feet 2+ psych - awake/alert/oriented x 3 Results & Data Results & Data Vital Signs (Past 12 Hours) Vital Signs Temp Pulse Resp BP BP Pulse Ox O2 Del Method 11/02/24 16:40 Room Air 11/02/24 11:58 36.9 C 81 18 131/77 93 Room Air 11/02/24 07:45 36.8 C 92 H 18 134/78 90 Room Air Laboratory Results Laboratory Results - last 24 hr 11/01/24 11/02/24 11/02/24 21:04 05:28 08:18 Sodium 138 Potassium 3.6 Chloride 106 Carbon Dioxide 23 Anion Gap 9 BUN 16 Creatinine 0.72 Est Cr Clr Drug Dosing 84.7 eGFR 92.16 BUN/Creatinine Ratio 22.2 H Glucose 92 POC Glucose 106 H 129 H Calcium 8.6 11/02/24 11/02/24 12:26 17:16 Sodium Potassium Chloride Carbon Dioxide Anion Gap BUN Creatinine Est Cr Clr Drug Dosing eGFR BUN/Creatinine Ratio Glucose POC Glucose 90 107 H Calcium PG Care Time/CCT Total # of Minutes Spent Total Time Spent with Patient: Total time spent is greater than 50% in coordination of care (as documented) at patient's floor/unit and/or counseling patient: Coding Level of Care Code 59310 SUB INP/OBS CARE 2/35MIN Diagnoses Norovirus A08.11 Septic shock A41.9; R65.21 Acute UTI N39.0 Seizure-like activity R56.9 Carotid stenosis, right I65.21 CARLIN (acute kidney injury) N17.9 Elevated troponin R79.89 Acute hypercapnic respiratory failure J96.02 Acute metabolic encephalopathy G93.41 Demyelinating disease of central nervous system G37.9 Acute on chronic heart failure with preserved ejection fraction (HFpEF) I50.33 Coronary artery disease I25.10 Uncontrolled type 2 diabetes mellitus with hyperglycemia E11.65 Paroxysmal atrial flutter I48.92
[2024-11-02] MEDS: LOPERAMIDE HCL 2 MG CAP PO PRN (22:50)
[2024-11-03 00:47] LABS: ANCA Screen Negative (Negative); Angiotensin Converting Enzyme 47 U/L (9-67); Anti Nuclear Antibody Screen NEGATIVE (NEGATIVE); Copper, Serum 158 mcg/dL (70-175); Rheumatoid Factor <10 IU/mL (<14)
[2024-11-03] MEDS ORDERED: Nursing to Pharmacy Communication SCH ×2 (05:30→19:00)
[2024-11-03] MEDS: INSULIN ASPART PER UNIT CHARGE SC SCH ×2 (06:18→21:36)
[2024-11-03 09:18] LABS: Appearance CSF Clear; CSF Count Tube # 3; CSF Xanthrochromic No xanthochromia; Color CSF Colorless; Red Blood Cell CSF Manual 1 (0-); Total Protein CSF 42.2 mg/dl (15-45); White Blood Cell CSF Manual 2 (0-5)
--- NOTE | 2024-11-03 10:53 | Discharge Summary ---
Discharge Summary Date of Service November 03, 2024 Principal Dx & Hospital Course #1 = Principal Diagnosis (1) Norovirus: resolved rectal tube out tolerating low fiber diet off IV fluids anti-emetics prn (2) Septic shock: 68yo female with recently diagnosed UTI, CHF, T2DM, HTN, hypercholesterolemia, CAD, and chronic leg/back pain presenting to ED via EMS for seizure-like activity and confusion, initially starting 0300 the day of arrival and worsening in severity throughout the day. her describes limb shaking. Upon ER presentation was in profound shock requiring admission to the ICU. source - urinary tract as in #2 below required ICU admission early in the hospitalization due to need for pressors initially was on norepinephrine - weaned off by 10/22, then back on overnight of 10/23-10/24, then weaned off for good some of her BP meds have been resumed albeit at lower doses (3) Acute UTI: 2nd pansensitive klebsiella initially on IV abx (rocephin / zosyn), now over to PO cefuroxime starting on 10/27 day #11 of effective abx therapy today CT a/p on hospital day #1 showed - "Nonspecific bilateral perinephric fat stranding. Mild bilateral hydroureteronephrosis without obstructing stone identified. Findings may be secondary to infection." In light of the CT we are treating for possible pyelonephritis - especially given how ill she was at the start of her hospitalization thus, Rx for total of 14 days (4) Seizure-like activity: question of started on keppra 500mg BID for such early in the admission (10/23/24) EEG: Mildly abnormal study due to diffuse slowing at times but no epileptic discharges episodes likely dystonic reactions / myoclonus rather than true seizure activity [facility] [place] advised stopping keppra (5) Carotid stenosis, right: initially dx 03/2024 on CTA neck severe stenosis (short segment) seen by vascular surgery this admission cont statin cont plavix cont asa f/u 6 months for surveillance (6) CARLIN (acute kidney injury): sepsis-associated ATN resolved Peak Cr 1.45 BMP today again stable (7) Elevated troponin: Myocardial demand ischemia due to septic shock no evidence of ACS HS trop peaked at 317 echo 10/23 - poor quality but nl LV function, mild conc LVH, no significant valvular disease (8) Acute hypercapnic respiratory failure: 10/22 - resolved with BiPAP & naloxone concern for sleep apnea could neurological issues from c-spine disease (see below) be contributing ?? needs formal sleep study as outpatient (9) Acute metabolic encephalopathy: resolved 2nd to septic shock, hypercapnia, etc. (10) Demyelinating disease of central nervous system: 10/27 cervical spine MRI concerning for demyelinating disease appreciate input from Dr Bahena, [facility] [place] [facility] he advised repeat MRI c-spine & brain w/ and w/o contrast these repeat MRIs are concerning for MS or similar disease copper level, B12, KAILA, RPR, Lyme, etc sent/pending needs LP, but plavix will need to be held for at least 5 days LP ordered for 11/03/[address] Bahena's assistance for dystonia cont baclofen 10mg BID (11) Acute on chronic heart failure with preserved ejection fraction (HFpEF): resolved no further IV diuretics (12) Coronary artery disease: Prior stents in the LAD x3, proximal RCA, and proximal posterolateral branch cont asa cont statin cont meto succ holding plavix for LP next week no evidence of ACS or ischemic symptoms (13) Uncontrolled type 2 diabetes mellitus with hyperglycemia: HbA1C 08/2024 -- 7.8% cont lantus cont novolog appreciate pharmacy glycemic team assistance (14) Paroxysmal atrial flutter: 10/23/24 - episode of such while in ICU terminated no recurrence since then cont metoprolol succ Plan * Urinary incontinence - oxybutynin, Solifenacin - both on held; has riojas in place; was seen by urology group in [place] recently; she recalls her PVR was good, was told she was emptying her bladder * HTN - cont meto succ; imdur on hold * hyperlipidemia - cont rosuvastatin * restless leg syndrome - pramipexole is on hold; she has not had RLS symptoms thus will not resume at this time * DVT prophylaxis - cont enoxaparin 40 daily today but hold tomorrow's dose for LP cont PT, OT care d/w pt's by phone 10/29 and 10/31 and in person today at bedside dispo - [facility], hopefully tomorrow afternoon Admission HPI Per Admitting Provider 68-year-old female PMHx recently diagnosed UTI, CHF, T2DM, HTN, hypercholesterolemia, CAD, and chronic leg/back pain presenting to ED via EMS for seizure-like activity and confusion. Recent hospitalization 08/10/2024- 08/13/2024 for UTI, failure with outpatient treatment. Patient initially woke at 0300 the morning of arrival and was having stiffness in BUE, per the patient's which resolved within a few minutes. When the patient woke for the day, she went to the [facility] to be evaluated where she was given a magnesium tablet and then discharged home. Given that she was still not feeling better, she told her that she wanted to be evaluated at [facility]. Patient was evaluated in the ED the day of arrival at around 1200, found to have UTI and provided with ceftriaxone as well as Keflex (outpatient), and magnesium was replaced. While patient was at the [employer] parking lot in her car while her was inside the store, he came out to the car noticed that she was having seizure-like activity, but is unsure for how long. States that it could have been upwards of 15 minutes but is unsure. When he came to the car and tried to get in, the doors were locked and the patient was able to understand to try to unlock the door, but was unable to actually perform the task because her arms were stiff and in fists. does not believe that the patient lost consciousness. EMS was called, and by the time EMS arrived the patient was still rigid when getting out of the car, seemed agitated and confused, and was only responsive to pain. Upon arrival to the ED, the patient was still confused, yelling, complaining of leg and back pain. During time of admission, the patient is sleeping in the bed and her helps to provide the history. She responds to pain and will make noises, but does not verbalize. states that the patient, 1 day [employer], felt as though she was starting to get a UTI but cannot speak more on this. Also states that she was having some lower abdominal pain the day of arrival. Throughout the course of both ED visits the day of admission, patient did not have leukocytosis, no gross electrolyte abnormalities, but lactate was found to be 2.9, pending repeat, and initial troponin was 58.0, pending repeat. Prolactin was 6.45, TSH 1.918. CXR did not reveal acute findings, and head CT was also WNL. The patient's EKG was sinus tachycardia but otherwise WNL. While in the ED, patient received 2L NSS, Zofran, morphine, lorazepam, Keppra, ketorolac, acetaminophen. Please see Dr. Magallanes's attestation for adjustments/additions to treatment plan. Discharge Exam gen - NAD, lying flat comfortably in bed, tired/weak mouth - MMM heart - RRR, s1 s2, no murmur lungs - CTA b/l abd - soft NT ND BS+ ext - no edema, pulses b/l feet 2+ psych - awake/alert/oriented x 3 Discharge Plan Discharge Items Patient Disposition: Transfer Inpatient Rehab Fac Reason For Visit: SEIZURE LIKE ACTIVITY Discharge Diagnosis: 1. septic shock 2nd to klebsiella UTI 2. high suspicion for new diagnosis of multiple sclerosis, s/p lumbar puncture 11/03/24 3. dystonic spasms of arm/hand - likely 2nd to #2; no seizure activity 4. acute on chronic HFpEF - resolved 5. acute kidney injury - resolved 6. norovirus infection - resolved 7. type 2 diabetes 8. lumbar spine disc disease 9. hypertension 10. coronary artery disease with prior stents 11. hypomagnesemia - resolved 12. hypokalemia - resolved 13. severe right-sided carotid stenosis - follow-up vascular surgery 6 months 14. acute metabolic encephalopathy - resolved 15. chronic urinary incontinence 16. buttock/sara-rectal skin irritation from recent norovirus 17. suspected sleep-disordered breathing Activity: Resume your previous activity Non-emergency contact: Primary Care Provider and Neurologist Call non-emergency contact if: you have any medication questions, your symptoms worsen and you have a fever Follow-up/Referrals: Nick Bahena MD [Physician] - (10-14 days to discuss dx & Rx of suspected multiple sclerosis ) Kain Sifuentes MD [Physician] - (6 months for f/u of right-sided carotid stenosis ) Akilah Cook PA-C [Primary Care Provider] - Diet: Carb Consistent or DM2 and Low Fiber Addtl Attending Provider Instructions: 1. BSGs ac/hs 2. Please attempt to d/c her riojas on 11/04/24 and give trial of void at that time 3. PT/OT - eval & Rx 4. wound care consult for buttock irritation 5. f/u Dr Bahena - [facility] - 10-14 days for follow-up of suspected multiple sclerosis 6. referral for sleep study It was our pleasure to care for Mrs Anders! -D Pending Studies at Discharge: No Stand-Alone Forms: My [employer], Smoking Cessation Skilled Items Patient informed of condition?: Yes DNR: No Discharge Level of Care: Acute rehab Communicable Disease: Yes (recent norovirus ) Discharge Prognosis: Stable Lines: None Urinary Catheter: Yes (advise discontinuation on 11/04/24 with spontaneous voiding trial then) Medications and DC Order Prescriptions: New baclofen 10 mg Tablet 10 mg PO BID Qty: 60 2RF cefuroxime axetil 500 mg Tablet 500 mg PO BID Qty: 5 0RF Advanced Probiotic 625 mg (10 billion cell) Capsule 1 cap PO DAILY 7 Days Qty: 7 0RF insulin aspart U-100 [Novolog U-100 Insulin aspart] 100 unit/mL Solution See Rx Instructions .ROUTE .COMPLEX Qty: 10 0RF Rx Instructions: supplemental novolog, for meals & bedtime. BSG goal range 120-150. Correction factor - 35. Carbohydrate ratio - 1 unit of novolog for every 12 grams of carbs. Continued aspirin [Adult Low Dose Aspirin] 81 mg tablet,delayed release (DR/EC) 81 mg PO DAILY rosuvastatin 20 mg tablet 20 mg PO QAM Qty: 90 3RF (DME) pen needle, diabetic [Pen Needle] 32 gauge x 5/32" needle See Rx Instructions .Route Qty: 100 0RF Rx Instructions: BID (DME) OneTouch Verio test strips Strip See Rx Instructions .Route Qty: 100 0RF Rx Instructions: TID before meals. (DME) lancets [OneTouch Delica Plus Lancet] 33 gauge misc See Rx Instructions .Route Qty: 100 0RF Rx Instructions: TIDM isosorbide mononitrate 30 mg tablet extended release 24 hr 30 mg PO QAM acetaminophen 325 mg Tablet 650 mg PO Q4H PRNQty: 0 0RF Changed metoprolol succinate 200 mg tablet extended release 24 hr 150 mg PO QAM Qty: 0 0RF Rx Instructions: note lower dose insulin glargine [Lantus U-100 Insulin] 100 unit/mL solution 5 unit SUBCUT DAILY Qty: 10 0RF Held clopidogrel [Plavix] 75 mg tablet 75 mg PO DAILY Qty: 90 3RF Hold Instructions: Resume on 11/04/24. Discontinued spironolactone 100 mg tablet 50 mg PO QAM Qty: 30 0RF pramipexole 0.25 mg tablet 0.5 mg PO BID oxybutynin chloride 10 mg tablet extended release 24hr 10 mg PO DAILY solifenacin 10 mg tablet 10 mg PO DAILY Rx Instructions: 10 mg po daily. filled 10/15 90 day supply cephalexin 500 mg capsule 500 mg PO BID 7 Days Qty: 14 0RF Discharge Orders: Discharge Order (Routine); Ordered 11/03/24 Ordered By: Juan Dumont/Other Patient Handouts: High Blood Sugar (Hyperglycemia), Hypoglycemia (Low Blood Sugar), Managing Type 2 Diabetes Admission Data Admit Date/Time: 10/21/24 19:59 Attending Provider: Juan Freed Admit Provider: Ashley Magallanes Primary Care Provider: Akilah Cook Other Providers: Juan Freed; Ashley Magallanes; Kain Sifuentes; Nick Bahena; Amilcar Pappas; Cindy Valdez; Vivian Gaming; Maria R Rolon; Babak Beltran; [facility]; [facility] Stay Data Consultations 10/21/24 18:37 ED Decision to Admit Stat 10/21/24 19:21 ED Decision to Admit Stat 10/22/24 10:13 Consult Vascular Surgery Routine 10/23/24 07:55 Consult Neurology Routine Diagnostic Imagining Performed 10/21/24 17:07 CT Brain [CT head/brain wo con] Stat 10/21/24 20:44 MRI Brain [MR brain seizure wo/w con] Stat 10/21/24 20:58 CT Abd and Pelvis [CT abdomen pelvis wo/w con] Stat 10/22/24 07:41 Carotid duplex [US carotid doppler BI] Routine 10/27/24 15:40 MRI Cervical [MR cervical spine wo con] Routine 10/28/24 10:23 MR brain MS wo/w con Routine MR cervical spine wo/w con Routine 11/03/24 07:00 IR lumbar puncture diagnostic Routine Pending Results Patient Have Any Pending Studies at Discharge: No Discharge Instructions Given to Patient (Per Discharging Provider) 1. BSGs ac/hs 2. Please attempt to d/c her riojas on 11/04/24 and give trial of void at that time 3. PT/OT - eval & Rx 4. wound care consult for buttock irritation 5. f/u Dr Bahena - [facility] - 10-14 days for follow-up of suspected multiple sclerosis 6. referral for sleep study It was our pleasure to care for Mrs Anders! -D Coding Diagnoses Norovirus A08.11 Septic shock A41.9; R65.21 Acute UTI N39.0 Seizure-like activity R56.9 Carotid stenosis, right I65.21 CARLIN (acute kidney injury) N17.9 Elevated troponin R79.89 Acute hypercapnic respiratory failure J96.02 Acute metabolic encephalopathy G93.41 Demyelinating disease of central nervous system G37.9 Acute on chronic heart failure with preserved ejection fraction (HFpEF) I50.33 Coronary artery disease I25.10 Uncontrolled type 2 diabetes mellitus with hyperglycemia E11.65 Paroxysmal atrial flutter I48.92
--- NOTE | 2024-11-03 15:00 | Fluoroscopy Report ---
LUMBAR PUNCTURE UNDER FLUOROSCOPY CLINICAL HISTORY: MS PROCEDURE: Procedure and risks were explained. Informed consent was obtained. A final timeout was com pleted. The patient was placed prone on the fluoroscopic exam table. The lower lumbar region was prep ped and draped in sterile fashion. 1% lidocaine was utilized for skin anesthesia. Utilizing fluoroscopic guidance, a 22-gauge Sprotte spinal needle was advanced into the intrathecal s pace at the L4-5 disc space level. Fluoroscopic spot images were obtained. Approximately 8 mL of jennyfer r CSF fluid was removed and sent to lab for analysis. The needle was removed and Band-Aid applied. Th e patient tolerated the procedure well. Vital signs will be monitored postprocedure. Fluoroscopy time 42 seconds. Study dosed 42.05 mGy. IMPRESSION: Lumbar puncture as above. Performed, dictated, and signed by Jordan Lindsay PA-C; to be co-signed by Dr. Eliecer Amaral. Electronically signed by: Eliecer Amaral M.D. 11/03/2024 4:04 PM
--- NOTE | 2024-11-03 18:20 | Hospitalist Progress Note ---
Date of Service November 03, 2024 Assessment & Plan (1) Septic shock: Plan: 68yo female with recently diagnosed UTI, CHF, T2DM, HTN, hypercholesterolemia, CAD, and chronic leg/back pain presenting to ED via EMS for seizure-like activity and confusion, initially starting 0300 the day of arrival and worsening in severity throughout the day. her describes limb shaking. Upon ER presentation was in profound shock requiring admission to the ICU. source for sepsis - urinary tract as in #2 below required ICU admission early in the hospitalization due to need for pressors initially was on norepinephrine - weaned off by 10/22, then back on overnight of 10/23-10/24, then weaned off for good (2) Acute UTI: Plan: 2nd pansensitive klebsiella initially on IV abx (rocephin / zosyn), now over to PO cefuroxime starting on 10/27 day #12 of effective abx therapy today CT a/p on hospital day #1 showed - "Nonspecific bilateral perinephric fat stranding. Mild bilateral hydroureteronephrosis without obstructing stone identified. Findings may be secondary to infection." In light of the CT we are treating for possible pyelonephritis - especially given how ill she was at the start of her hospitalization thus, Rx for total of 14 days (3) Norovirus: Plan: resolved rectal tube out tolerating low fiber diet off IV fluids (4) Seizure-like activity: Plan: EEG: Mildly abnormal study due to diffuse slowing at times but no epileptic discharges episodes likely dystonic reactions / myoclonus rather than true seizure activity [facility] [place] stopping keppra (5) Carotid stenosis, right: Plan: initially dx 03/2024 on CTA neck severe stenosis (short segment) seen by vascular surgery Dr Sifuentes this admission cont statin cont plavix cont asa f/u 6 months for surveillance (6) CARLIN (acute kidney injury): Plan: sepsis-associated ATN resolved Peak Cr 1.45 Most recent Cr wnl BMP am tomorrow since no discharge (7) Elevated troponin: Plan: Myocardial demand ischemia due to septic shock no evidence of ACS HS trop peaked at 317 echo 10/23 - poor quality but nl LV function, mild conc LVH, no significant valvular disease (8) Acute hypercapnic respiratory failure: Plan: 10/22 - resolved with BiPAP & naloxone concern for sleep apnea could neurological issues from c-spine disease (see below) be contributing ?? needs formal sleep study as outpatient (9) Acute metabolic encephalopathy: Plan: resolved 2nd to septic shock, hypercapnia, etc. (10) Demyelinating disease of central nervous system: Plan: 10/27 cervical spine MRI concerning for demyelinating disease appreciate input from Dr Bahena, [facility] he advised repeat MRI c-spine & brain w/ and w/o contrast these repeat MRIs are concerning for MS or similar disease copper level wnl B12 level wnl RPR, Lyme negative KAILA negative ANCA negative RF negative TAD level wnl s/p LP today, 11/03/24 cell counts wnl total protein wnl CSF sent for MS bands appreciate Dr Bahena's assistance for dystonia cont baclofen 10mg BID will need f/u with Dr Bahena 10-14 days post-d/c to get started on Rx for suspected MS hold plavix today resume plavix on 11/04/24 (11) Acute on chronic heart failure with preserved ejection fraction (HFpEF): Plan: resolved no further IV diuretics (12) Coronary artery disease: Plan: Prior stents in the LAD x3, proximal RCA, and proximal posterolateral branch cont asa cont statin cont meto succ holding plavix for LP next week no evidence of ACS or ischemic symptoms (13) Uncontrolled type 2 diabetes mellitus with hyperglycemia: Plan: HbA1C 08/2024 -- 7.8% cont lantus cont novolog appreciate pharmacy glycemic team assistance (14) Paroxysmal atrial flutter: Plan: 10/23/24 - brief episode of such while in ICU terminated w/o intervention no recurrence since then cont metoprolol succ Plan * Urinary incontinence - oxybutynin, Solifenacin - both on held; has riojas in place; was seen by urology group in [place] recently; she recalls her PVR was good, was told she was emptying her bladder would try to d/c her riojas on 11/04/24 and give spontaneous voiding trial * HTN - cont meto succ; imdur on hold * hyperlipidemia - cont rosuvastatin * restless leg syndrome - pramipexole is on hold; she has not had RLS symptoms thus will not resume at this time * DVT prophylaxis - enoxaparin on hold s/p LP today care d/w pt's by phone 10/29, 10/31, and 11/03/24 dispo - [facility] - auth ; resubmitting for auth Admission and Anticipated Discharge Date Admission Date: October 21, 2024 Subjective had LP this am by interventional radiology uncomplicated cell counts wnl I saw patient post-LP was resting comfortably in bed states she had 1 tiny diarrhea stool last pm only otherwise no N/V, no abd pain tolerating diet was to d/c to [facility] today, but we later found out that her insurance auth had and we have to resubmit for auth patient made aware of this Review of Systems Review of Systems: gen - no fevers or chills cv - no cp, no orthopnea pulm - no dyspnea neuro - spasms of arms/hands improved Physical Exam Physical Exam: gen - NAD, lying flat comfortably in bed, looks good mouth - MMM heart - RRR, s1 s2, no murmur lungs - CTA b/l abd - soft NT ND BS+ ext - no edema, pulses b/l feet 2+ psych - awake/alert/oriented x 3 Results & Data Results & Data Vital Signs (Past 12 Hours) Vital Signs Temp Pulse Pulse Pulse Pulse Resp BP 11/03/24 15:38 36.5 C 84 18 11/03/24 11:09 36.7 C 75 16 11/03/24 10:41 36.5 C 102 H 80 90 16 134/78 11/03/24 10:31 36.5 C 80 16 11/03/24 09:43 36.6 C 72 16 11/03/24 09:26 36.6 C 79 16 11/03/24 08:52 36.7 C 74 16 11/03/24 07:51 11/03/24 07:46 36.8 C 74 16 11/03/24 07:11 71 BP Pulse Ox O2 Del Method 11/03/24 15:38 139/79 95 Room Air 11/03/24 11:09 132/80 94 Room Air 11/03/24 10:41 127/71 94 11/03/24 10:31 127/71 94 Room Air 11/03/24 09:43 122/75 93 Room Air 11/03/24 09:26 136/83 94 Room Air 11/03/24 08:52 124/73 92 Room Air 11/03/24 07:51 Room Air 11/03/24 07:46 120/71 93 Room Air 11/03/24 07:11 Laboratory Results Laboratory Results - last 24 hr 10/29/24 11/02/24 11/03/24 05:37 20:19 05:36 POC Glucose 96 120 H Angiotensin Convert Enz 47 Serum Copper 158 Rheumatoid Factor <10 KAILA Screen NEGATIVE ANCA Negative 11/03/24 11/03/24 11/03/24 08:03 08:11 12:07 POC Glucose 146 H 144 H 11/03/24 11/03/24 17:05 Unknown POC Glucose 113 H CSF Appearance Clear CSF Color Colorless Xanthrochromic No xanthochromia CSF WBC 2 CSF RBC 1 CSF Cell Count Tube # 3 CSF Chemistry Tube # 1 CSF Glucose 62 CSF Total Protein 42.2 PG Care Time/CCT Total # of Minutes Spent Total Time Spent with Patient: Total time spent is greater than 50% in coordination of care (as documented) at patient's floor/unit and/or counseling patient: Coding Level of Care Code 35387 SUB INP/OBS CARE 3/50MIN Diagnoses Septic shock A41.9; R65.21 Acute UTI N39.0 Norovirus A08.11 Seizure-like activity R56.9 Carotid stenosis, right I65.21 CARLIN (acute kidney injury) N17.9 Elevated troponin R79.89 Acute hypercapnic respiratory failure J96.02 Acute metabolic encephalopathy G93.41 Demyelinating disease of central nervous system G37.9 Acute on chronic heart failure with preserved ejection fraction (HFpEF) I50.33 Coronary artery disease I25.10 Uncontrolled type 2 diabetes mellitus with hyperglycemia E11.65 Paroxysmal atrial flutter I48.92
[2024-11-04 00:23] VITALS: O2SAT 92
[2024-11-04 06:28] LABS: Hematocrit (blood only) 33.2 % (37.0-47.0); Hemoglobin 10.9 g/dl (12.0-16.0); Mean Corpuscular Hemoglobin 26.7 pg (25.0-34.0); Mean Corpuscular Hgb Conc 32.8 g/dL (32.0-36.0); Mean Corpuscular Volume 81.4 fL (80.0-100.0); Mean Platelet Volume 8.8 fL (9.4-12.4); Platelet Count 472 K/uL (130-400); RDW Coefficient of Variation 14.5 % (11.5-14.5); Red Blood Count 4.08 M/uL (4.20-5.40); White Blood Count 5.04 K/ul (4.8-10.8)
[2024-11-04 06:46] LABS: BUN Creatinine Ratio 20.8 (10-20); Calcium 9.1 mg/dl (8.6-10.3); Creatinine Clr Calc Pharmacy 79.8 ml/min; Potassium 3.7 mmol/L (3.5-5.1)
[2024-11-04 07:48] VITALS: PULSE 82; RESP 18; TEMP 97.7
[2024-11-04 09:44] VITALS: BP 120/69
--- NOTE | 2024-11-04 10:41 | Pharmacy Report ---
Pharmacy Glycemic Short Note 2 - Date of Service November 04, 2024 - Glycemic Short BSG Results (Last 24 hours): 11/03/24 11/03/24 11/03/24 12:07 17:05 20:46 Glucose POC Glucose 144 H 113 H 100 H 11/04/24 11/04/24 05:52 08:01 Glucose 103 H POC Glucose 124 H OUTPATIENT ANTIDIABETIC REGIMEN: * Lantus 18 units SQ BID HbA1C: 7.8% (08/11/24) ASSESSMENT: 11/04: * Lillian received 6 units of insulin yesterday (5 were basal) * Fasting BSG this AM within goal range, continue current basal insulin * NovoLog appears appropriate at this time since was loosened on 11/02, but only received 1 unit yesterday 11/02: * Received 13 units yesterday, 10 were basal. BSGs [phone] mg/dL. * AM fasting today was 129 mg/dL. Lunchtime down to 90 mg/dL. * Cut basal dose in half and loosened Novolog. 10/31/24 * BSGs remain stable on ~30 units of insulin daily for the past several days. * No changes required at this time. 10/29/24 * SZ had 30 units of insulin yesterday * 10 units glargine * 20 units aspart * BSGs within goal range, no changes made. 10/27/24: * Blood sugars reasonably well-controlled over past 72 hours * Receiving ~30 units of insulin/day * Do not anticipate any changes to glycemic regimen today 10/24: * BSGs largely within goal the last 24h: [phone]/dl. Received 5 units of basal and 4 units of bolus insulin yesterday. * Continues with no PO intake and ceftriaxone. * Continue Lantus BID per scale depending on BSG until more consistently tolerating PO intake. Novolog 30/08 ACHS. 10/22: * Pt is a 68 year old female admitted with UTI and seizure like activity. History of DM2 on insulin therapy @ home. Pharmacy consulted to assist with inpatient glycemic management. * BSGs [phone]/dL since admission. No insulin administered yesterday. * Ordered clear liquid diet, however minimal PO intake. Receiving IV antibiotics. * Agree with Lantus 8 units X 1 dose this AM - will plan for a scale regimen moving forward depending on BSG. Novolog ACHS moderate stress scale. PLAN FOR INPATIENT GLYCEMIC CONTROL: * Hold outpatient oral diabetes medications * Basal insulin * Lantus 5 units SC daily * Bolus insulin * NovoLog per scale ACHS or Q6hrs while NPO * Goal Range: Low 110 mg/dL - High 140 mg/dL * Correction Factor: 35 mg/dL/unit * Nutritional / Prandial insulin per carb ratio of 1 unit per 12 grams CHO consumed
--- NOTE | 2024-11-05 18:01 | Discharge Summary ---
Discharge Summary Date of Service November 04, 2024 Principal Dx & Hospital Course #1 = Principal Diagnosis (1) Septic shock: 68yo female with recently diagnosed UTI, CHF, T2DM, HTN, hypercholesterolemia, CAD, and chronic leg/back pain presenting to ED via EMS for seizure-like activity and confusion, initially starting 0300 the day of arrival and worsening in severity throughout the day. her described limb shaking though she remained awake and purposeful. Upon ER presentation was in profound shock requiring admission to the ICU. source for sepsis - urinary tract as in #2 below required ICU admission early in the hospitalization for pressors initially was on norepinephrine - weaned off by 10/22, then back on overnight of 10/23-10/24, then weaned off for good (2) Acute UTI: Bilateral pyelonephritis Lillian had bilateral acute back pain prior to admission, which resolved after antibiotics CT a/p on hospital day #1 showed - "Nonspecific bilateral perinephric fat stranding. Mild bilateral hydroureteronephrosis without obstructing stone identified. Findings may be secondary to infection." 2nd pansensitive klebsiella initially on IV abx (rocephin / zosyn), now over to PO cefuroxime starting on 10/27 plan to complete 14 days total antibiotics (3) Norovirus: she had an episode of acute diarrhea while hospitalized and tested positive for norovirus. Treated with supportive care and resolved (4) Seizure-like activity: EEG: Mildly abnormal study due to diffuse slowing at times but no epileptic discharges episodes likely dystonic reactions / myoclonus rather than true seizure activity [facility] Neurology advised stopping keppra (5) Carotid stenosis, right: initially dx 03/2024 on CTA neck severe stenosis (short segment) seen by vascular surgery Dr Sifuentes this admission cont statin cont plavix cont asa neurology did not advise intervention at this time since it seems to be asymptomatic f/u [address] Sifuentes for surveillance (6) CARLIN (acute kidney injury): sepsis-associated ATN resolved Peak Cr 1.45 (7) Elevated troponin: Myocardial demand ischemia due to septic shock no evidence of ACS HS trop peaked at 317 echo 10/23 - poor quality but nl LV function, mild conc LVH, no significant valvular disease (8) Acute hypercapnic respiratory failure: 10/22 - resolved with BiPAP & naloxone concern for sleep apnea could neurological issues from c-spine disease (see below) be contributing ?? needs formal sleep study as outpatient (9) Acute metabolic encephalopathy: resolved 2nd to septic shock, hypercapnia, etc. (10) Demyelinating disease of central nervous system: 10/27 cervical spine MRI concerning for demyelinating disease appreciate input from Dr Bahena, [facility] Neurology he advised repeat MRI c-spine & brain w/ and w/o contrast these repeat MRIs are concerning for MS or similar disease copper level wnl B12 level wnl RPR, Lyme negative KAILA negative ANCA negative RF negative TAD level wnl underwent lumbar puncture 11/03/24 cell counts wnl total protein wnl CSF sent for MS bands - oligoclonal bands still pending appreciate Dr Bahena's assistance for dystonia cont baclofen 10mg BID will need f/u with Dr Bahena 10-14 days post-d/c to get started on Rx for suspected MS (11) Acute on chronic heart failure with preserved ejection fraction (HFpEF): resolved no further IV diuretics (12) Coronary artery disease: Prior stents in the LAD x3, proximal RCA, and proximal posterolateral branch cont asa cont statin cont meto succ continue Plavix no evidence of ACS or ischemic symptoms (13) Uncontrolled type 2 diabetes mellitus with hyperglycemia: HbA1C 08/2024 -- 7.8% (14) Paroxysmal atrial flutter: 10/23/24 - brief episode of such while in ICU terminated w/o intervention no recurrence since then cont metoprolol succ Plan * Urinary incontinence - oxybutynin, Solifenacin - both on held; has riojas in place; was seen by urology group in [place] recently; she recalls her PVR was good, was told she was emptying her bladder would try to d/c her riojas on 11/04/24 and give spontaneous voiding trial * HTN - continue metoprolol * hyperlipidemia - cont rosuvastatin * restless leg syndrome - pramipexole is on hold; she has not had RLS symptoms thus will not resume at this time dispo - [facility] for acute rehab Notes For Next Care Provider oligoclonal bands from CSF pending Admission HPI Per Admitting Provider 68-year-old female PMHx recently diagnosed UTI, CHF, T2DM, HTN, hypercholesterolemia, CAD, and chronic leg/back pain presenting to ED via EMS for seizure-like activity and confusion. Recent hospitalization 08/10/2024- 08/13/2024 for UTI, failure with outpatient treatment. Patient initially woke at 0300 the morning of arrival and was having stiffness in BUE, per the patient's which resolved within a few minutes. When the patient woke for the day, she went to the [facility] to be evaluated where she was given a magnesium tablet and then discharged home. Given that she was still not feeling better, she told her that she wanted to be evaluated at [facility]. Patient was evaluated in the ED the day of arrival at around 1200, found to have UTI and provided with ceftriaxone as well as Keflex (outpatient), and magnesium was replaced. While patient was at the [employer] parking lot in her car while her was inside the store, he came out to the car noticed that she was having seizure-like activity, but is unsure for how long. States that it could have been upwards of 15 minutes but is unsure. When he came to the car and tried to get in, the doors were locked and the patient was able to understand to try to unlock the door, but was unable to actually perform the task because her arms were stiff and in fists. does not believe that the patient lost consciousness. EMS was called, and by the time EMS arrived the patient was still rigid when getting out of the car, seemed agitated and confused, and was only responsive to pain. Upon arrival to the ED, the patient was still confused, yelling, complaining of leg and back pain. During time of admission, the patient is sleeping in the bed and her helps to provide the history. She responds to pain and will make noises, but does not verbalize. states that the patient, 1 day [employer], felt as though she was starting to get a UTI but cannot speak more on this. Also states that she was having some lower abdominal pain the day of arrival. Throughout the course of both ED visits the day of admission, patient did not have leukocytosis, no gross electrolyte abnormalities, but lactate was found to be 2.9, pending repeat, and initial troponin was 58.0, pending repeat. Prolactin was 6.45, TSH 1.918. CXR did not reveal acute findings, and head CT was also WNL. The patient's EKG was sinus tachycardia but otherwise WNL. While in the ED, patient received 2L NSS, Zofran, morphine, lorazepam, Keppra, ketorolac, acetaminophen. Please see Dr. Magallanes's attestation for adjustments/additions to treatment plan. Discharge Exam PHYSICAL EXAMINATION Last 24h vital signs reviewed, see documentation in flowsheet General: awake and alert, sitting in a chair, looks much improved compared to 10 days ago HEENT: Normocephalic, atraumatic, pupils round and equal, sclerae anicteric, no conjunctival injection, moist mucus membranes Lungs: respiratory work of breathing seems improved Clear to auscultation bilaterally anteriorly. No RRW Heart: Regular rate and rhythm, no murmurs. No JVD Abdomen: Soft, nontender, nondistended. Bowel sounds present. Extremities: Warm, dry, well-perfused. anasarca resolved Neuro: awake and alert oriented x 4, moves 4 extremities follows commands and is conversational Psych: alert, calm, normal affect and behavior Discharge Plan Discharge Items Patient Disposition: Transfer Inpatient Rehab Fac Reason For Visit: SEIZURE LIKE ACTIVITY Discharge Diagnosis: 1. septic shock 2nd to klebsiella UTI 2. high suspicion for new diagnosis of multiple sclerosis, s/p lumbar puncture 11/03/24 3. dystonic spasms of arm/hand - likely 2nd to #2; no seizure activity 4. acute on chronic HFpEF - resolved 5. acute kidney injury - resolved 6. norovirus infection - resolved 7. type 2 diabetes 8. lumbar spine disc disease 9. hypertension 10. coronary artery disease with prior stents 11. hypomagnesemia - resolved 12. hypokalemia - resolved 13. severe right-sided carotid stenosis - follow-up vascular surgery 6 months 14. acute metabolic encephalopathy - resolved 15. chronic urinary incontinence 16. buttock/sara-rectal skin irritation from recent norovirus 17. suspected sleep-disordered breathing Activity: Resume your previous activity Non-emergency contact: Primary Care Provider and Neurologist Call non-emergency contact if: you have any medication questions, your symptoms worsen and you have a fever Follow-up/Referrals: Nick Bahena MD [Physician] - (10-14 days to discuss dx & Rx of suspected multiple sclerosis ) Kain Sifuentes MD [Physician] - (6 months for f/u of right-sided carotid stenosis ) Akilah Cook PAEuniceC [Primary Care Provider] - Diet: Carb Consistent or DM2 and Low Fiber Addtl Attending Provider Instructions: 1. BSGs ac/hs 2. Please attempt to d/c her riojas on 11/04/24 and give trial of void at that time 3. PT/OT - eval & Rx 4. wound care consult for buttock irritation 5. f/u Dr Bahena - [facility] - 10-14 days for follow-up of suspected multiple sclerosis 6. referral for sleep study It was our pleasure to care for Mrs Anders! -D Pending Studies at Discharge: No Stand-Alone Forms: My [employer] Phone, Smoking Cessation Skilled Items Patient informed of condition?: Yes DNR: No Discharge Level of Care: Acute rehab Communicable Disease: Yes (recent norovirus ) Discharge Prognosis: Stable Lines: None Urinary Catheter: Yes (advise discontinuation on 11/04/24 with spontaneous voiding trial then) Medications and DC Order Prescriptions: New baclofen 10 mg Tablet 10 mg PO BID Qty: 60 2RF cefuroxime axetil 500 mg Tablet 500 mg PO BID Qty: 5 0RF Advanced Probiotic 625 mg (10 billion cell) Capsule 1 cap PO DAILY 7 Days Qty: 7 0RF insulin aspart U-100 [Novolog U-100 Insulin aspart] 100 unit/mL Solution See Rx Instructions .ROUTE .COMPLEX Qty: 10 0RF Rx Instructions: supplemental novolog, for meals & bedtime. BSG goal range 120-150. Correction factor - 35. Carbohydrate ratio - 1 unit of novolog for every 12 grams of carbs. acetaminophen 325 mg Tablet 650 mg PO Q4H PRN (Reason: fever or pain) Qty: 0 0RF metoprolol succinate 50 mg Tablet Extended Release 24 Hr 150 mg PO QAM Qty: 0 0RF loperamide 2 mg Capsule 2 mg PO BID PRNQty: 0 0RF magnesium oxide 400 mg (241.3 mg magnesium) Tablet 400 mg PO QAM Qty: 0 0RF Rx Instructions: hold if diarrhea insulin glargine [Lantus U-100 Insulin] 100 unit/mL Solution 5 unit SC DAILY Qty: 0 0RF Continued aspirin [Adult Low Dose Aspirin] 81 mg tablet,delayed release (DR/EC) 81 mg PO DAILY rosuvastatin 20 mg tablet 20 mg PO QAM Qty: 90 3RF clopidogrel [Plavix] 75 mg tablet 75 mg PO DAILY Qty: 90 3RF Hold Instructions: Resume on 11/04/24. (DME) pen needle, diabetic [Pen Needle] 32 gauge x 5/32" needle See Rx Instructions .Route Qty: 100 0RF Rx Instructions: BID (DME) OneTouch Verio test strips Strip See Rx Instructions .Route Qty: 100 0RF Rx Instructions: TID before meals. (DME) lancets [OneTouch Delica Plus Lancet] 33 gauge misc See Rx Instructions .Route Qty: 100 0RF Rx Instructions: TIDM isosorbide mononitrate 30 mg tablet extended release 24 hr 30 mg PO QAM acetaminophen 325 mg Tablet 650 mg PO Q4H PRNQty: 0 0RF Changed insulin glargine [Lantus U-100 Insulin] 100 unit/mL solution 5 unit SUBCUT DAILY Qty: 10 0RF metoprolol succinate 200 mg tablet extended release 24 hr 150 mg PO QAM Qty: 0 0RF Rx Instructions: note lower dose Discontinued spironolactone 100 mg tablet 50 mg PO QAM Qty: 30 0RF pramipexole 0.25 mg tablet 0.5 mg PO BID oxybutynin chloride 10 mg tablet extended release 24hr 10 mg PO DAILY solifenacin 10 mg tablet 10 mg PO DAILY Rx Instructions: 10 mg po daily. filled 10/15 90 day supply cephalexin 500 mg capsule 500 mg PO BID 7 Days Qty: 14 0RF Discharge Orders: Discharge Order (Routine); Ordered 11/04/24 Ordered By: Merry Dumont/Other Patient Handouts: High Blood Sugar (Hyperglycemia), Hypoglycemia (Low Blood Sugar), Managing Type 2 Diabetes Admission Data Admit Date/Time: 10/21/24 19:59 Attending Provider: Merry Kennedy Admit Provider: Ashley Magallanes Primary Care Provider: Akilah Cook Other Providers: Kain Sifuentes; Babak Beltran; [facility]; [facility]; Nick Amaral; Babak Lee V.; Nick Bahena Hospital Stay Data Consultations 10/21/24 18:37 ED Decision to Admit Stat 10/21/24 19:21 ED Decision to Admit Stat 10/22/24 10:13 Consult Vascular Surgery Routine 10/23/24 07:55 Consult Neurology Routine Diagnostic Imagining Performed 10/21/24 17:07 CT Brain [CT head/brain wo con] Stat 10/21/24 20:44 MRI Brain [MR brain seizure wo/w con] Stat 10/21/24 20:58 CT Abd and Pelvis [CT abdomen pelvis wo/w con] Stat 10/22/24 07:41 Carotid duplex [US carotid doppler BI] Routine 10/27/24 15:40 MRI Cervical [MR cervical spine wo con] Routine 10/28/24 10:23 MR brain MS wo/w con Routine MR cervical spine wo/w con Routine 11/03/24 07:00 IR lumbar puncture diagnostic Routine Pending Results Patient Have Any Pending Studies at Discharge: No Discharge Instructions Given to Patient (Per Discharging Provider) 1. BSGs ac/hs 2. Please attempt to d/c her riojas on 11/04/24 and give trial of void at that time 3. PT/OT - eval & Rx 4. wound care consult for buttock irritation 5. f/u Dr Bahena - [facility] - 10-14 days for follow-up of suspected multiple sclerosis 6. referral for sleep study It was our pleasure to care for Mrs Anders! -D Total Time Total Time Spent Total Time Spent (In Minutes): I personally spent: 45 minutes today on clinical care activities including: reviewing chart notes and vital signs reviewing labs reviewing studies discussion with career technology teacher examining and counseling the patient writing orders writing prescriptions, discharge instructions documentation Coding Level of Care Code 09483 INP/OBS DISCH >30 MIN Diagnoses Septic shock A41.9; R65.21 Acute UTI N39.0 Norovirus A08.11 Seizure-like activity R56.9 Carotid stenosis, right I65.21 CARLIN (acute kidney injury) N17.9 Elevated troponin R79.89 Acute hypercapnic respiratory failure J96.02 Acute metabolic encephalopathy G93.41 Demyelinating disease of central nervous system G37.9 Acute on chronic heart failure with preserved ejection fraction (HFpEF) I50.33 Coronary artery disease I25.10 Uncontrolled type 2 diabetes mellitus with hyperglycemia E11.65 Paroxysmal atrial flutter I48.92
== END 2024-11-04 12:02 | DRG 871 ==
LOC: ED 16:29 → SUATTDRO 19:59 → EDINP 19:59 → 1E 10-22 00:02 → 2S 10-24 14:37 → 2N 10-27 15:42
DX: I25.10 Atherosclerotic heart disease of native coronary artery without angina pectoris; G25.81 Restless legs syndrome; G89.29 Other chronic pain; M48.02 Spinal stenosis, cervical region; N18.30 Chronic kidney disease, stage 3 unspecified; E78.00 Pure hypercholesterolemia, unspecified; Z79.899 Other long term (current) drug therapy; E83.42 Hypomagnesemia; I65.21 Occlusion and stenosis of right carotid artery; G93.41 Metabolic encephalopathy; N12 Tubulo-interstitial nephritis, not specified as acute or chronic; K74.60 Unspecified cirrhosis of liver; Z91.030 Bee allergy status; M25.541 Pain in joints of right hand; M48.062 Spinal stenosis, lumbar region with neurogenic claudication; Z79.02 Long term (current) use of antithrombotics/antiplatelets; R56.9 Unspecified convulsions; Z95.5 Presence of coronary angioplasty implant and graft; A41.89 Other specified sepsis; I50.33 Acute on chronic diastolic (congestive) heart failure; E11.65 Type 2 diabetes mellitus with hyperglycemia; J96.02 Acute respiratory failure with hypercapnia; M50.01 Cervical disc disorder with myelopathy, high cervical region; I24.89 Other forms of acute ischemic heart disease; G37.9 Demyelinating disease of central nervous system, unspecified; B96.1 Klebsiella pneumoniae [K. pneumoniae] as the cause of diseases classified elsewhere; N17.0 Acute kidney failure with tubular necrosis; N32.81 Overactive bladder; Z79.4 Long term (current) use of insulin; Z87.891 Personal history of nicotine dependence; E87.29 Other acidosis; A08.11 Acute gastroenteropathy due to Norwalk agent; M50.022 Cervical disc disorder at C5-C6 level with myelopathy; I13.0 Hypertensive heart and chronic kidney disease with heart failure and stage 1 through stage 4 chronic kidney disease, or unspecified chronic kidney disease; Z79.82 Long term (current) use of aspirin; M25.542 Pain in joints of left hand; K76.0 Fatty (change of) liver, not elsewhere classified; E87.6 Hypokalemia; R65.21 Severe sepsis with septic shock; I48.92 Unspecified atrial flutter

== ENCOUNTER 2025-02-06 03:49 | Inpatient (IN) ==
--- NOTE | 2025-02-06 04:02 | Emergency Department Note ---
Impression & Plan Acute UTI Admission ED Provider Note HPI: History obtained from patient. The patient is a 69-year-old female with history of heart failure with preserved ejection fraction, demyelinating disease, frequent UTIs, type 2 diabetes, hypertension, presents emergency department with a chief complaint of generalized weakness and fatigue as well as dysuria and abdominal discomfort. Patient states she has had the symptoms for the past day. Patient states that she has had some subjective fever/chills throughout the day. Patient states that her symptoms feel similar to those that she has had in the past associated with urinary tract infections. Patient states she has also had some generalized abdominal discomfort, she denies any vomiting. She states she has had some loose stools. On arrival here to the ED the patient is tachycardic and hypertensive, she is afebrile on arrival and saturating well on room air. ROS: - Per HPI Differential Diagnosis: Sepsis, urinary tract infection, pyelonephritis, small bowel obstruction, viral gastroenteritis, acute cholecystitis, acute appendicitis, kidney stone, amongst other potential pathologies. *Outpatient medications and allergy history reviewed. PE: General: Alert HEENT: Normocephalic, trachea midline Eyes: Extraocular eye movement is intact, no scleral erythema Pulmonary: Clear to auscultation bilaterally, no wheezing Cardio: Tachycardic rate with regular rhythm GI: Abdomen is soft to palpation, there is mild tenderness to the mid abdomen to palpation without guarding or rigidity : No suprapubic tenderness MSK: No evidence of trauma or malformation of the extremities, no edema Skin: No evidence of rash Neuro: Alert, no new focal deficits Psychiatric: Cooperative INDEPENDENT INTERPRETATIONS: property assessment monitor: (As interpreted by myself): - An order was placed for continuous cardiac monitoring - Patient was noted to be in sinus tachycardia with a rate of 120 Interventions provided in ED: - IV fluid bolus, IV cefepime, IV morphine, IV Zofran Medical Decision Making: Shortly after the patient arrived IV was established and lab work obtained, patient was placed on property assessment monitor. Patient was given IV fluids for her presenting tachycardia. She complained of subjective fever/chills that started earlier today however she was afebrile on arrival. Lab work shows no leukocytosis, hemoglobin is normal, platelet count is normal, CMP does not show any evidence of any critical findings. There is no acute kidney injury. Lactic acid is elevated at 2.5. Lipase is mildly elevated at 88, procalcitonin is still fairly low at 0.26, urinalysis appears to be consistent with infection, 3+ leukocyte esterase, greater than 50 white blood cells, 3+ bacteria. CT imaging of the abdomen pelvis was obtained without contrast that shows some perinephric fat stranding bilaterally, given this with findings on urinalysis concerning for infection with an elevated lactic acid as well as some persistent tachycardia despite IV fluid resuscitation, I do feel the patient should be admitted. Patient was in agreement. Patient was treated with IV cefepime, [facility] was consulted for admission. Patient was placed for admission in stable condition. Consultants/Discussions held with other healthcare providers: - [facility], Dr. Magallanes Disposition discussion held by myself with: - Patient and at bedside Diagnosis: 1. Urinary tract infection, acute 2. Bilateral pyelonephritis/ureteritis, acute 3. Lactic acidosis 4. Sinus tachycardia Disposition: Admission Ramirez Bryan DO Emergency Medicine Past Med/Surg History Problem List (Updated 02/06/25 @ 06:17 by Ramirez Bryan DO) Acute UTI (Acute) Ataxia Urinary incontinence Leg weakness Norovirus Paroxysmal atrial flutter Acute on chronic heart failure with preserved ejection fraction (HFpEF) Acute hypercapnic respiratory failure CARLIN (acute kidney injury) Dystonia Cervical myelopathy Demyelinating disease of central nervous system Carotid stenosis, right Elevated lactic acid level (Acute) Elevated troponin (Acute) Seizure-like activity (Acute) Acute UTI (Acute) Tachycardia (Acute) Hypertension (Acute) Altered mental status (Acute) Encephalopathy Septic shock Pyelonephritis Hypotension Elevated troponin Seizure-like activity Lumbar spondylosis Lumbar stenosis with neurogenic claudication Spondylolisthesis, lumbar region Scoliosis of lumbar region due to degenerative disease of spine in adult Left leg weakness Recurrent UTI Sciatica (Acute) Fever (Acute) CHF (congestive heart failure) Acute metabolic encephalopathy Tachycardia Uncontrolled type 2 diabetes mellitus with hyperglycemia Altered mental status Sepsis Lumbar facet joint syndrome Spinal stenosis, lumbar region without neurogenic claudication Hypercholesteremia HTN (hypertension) (Acute) Restless leg Medical History Coronary artery disease Surgical History History of lumbar surgery Social History Smoking Status: Never smoker Tobacco Type: Cigarettes Hx Alcohol Use: No Hx Substance Use: No Preferred Language: Lithuanian Communication Ability: Unable Visual Impairment: Limited Hearing Ability: Hard of Hearing Suture Polisher Required: No Beliefs That Will Affect Care: None marital status: Current Living Situation: Spouse current occupational status: retired Feels Safe at Home: Yes Assistive Devices: Cane and Walker Allergies Allergies Allergy/AdvReac Type Severity Reaction Status Date / Time bee venom protein (honey bee) Allergy Severe DIFFICULTY Verified 01/09/25 11:17 BREATHING/HIVES/ITCHY Home Meds Home Medications Medication Instructions Recorded Confirmed aspirin 81 mg tablet,delayed 81 mg PO DAILY 07/06/20 01/09/25 release (Adult Low Dose Aspirin) lidocaine 4 % topical patch 1 patch topical DAILY PRN 11/18/24 01/09/25 acetaminophen 500 mg tablet 1,000 mg PO Q8H 11/27/24 01/09/25 (Tylenol Extra Strength) metoprolol succinate 100 mg 150 mg PO DAILY 11/27/24 01/09/25 tablet,extended release 24 hr rosuvastatin 20 mg tablet 20 mg PO DAILY 11/27/24 01/09/25 Previous Rx's Medication Instructions Recorded blood sugar diagnostic (OneTouch #100 ea 04/26/23 Verio test strips) lancets 33 gauge (OneTouch Delica #100 ea 04/26/23 Plus Lancet) pen needle, diabetic 32 gauge x #100 ea 04/26/23 5/32" (Pen Needle) clopidogrel 75 mg tablet (Plavix) 75 mg PO DAILY #90 tabs 10/07/24 baclofen 10 mg tablet 10 mg PO BID #60 tabs 11/03/24 insulin glargine 100 unit/mL 5 unit (0.05 mL) SC DAILY #0 mL 11/04/24 subcutaneous solution (Lantus U-100 Insulin) magnesium oxide 400 mg (241.3 mg 400 mg PO QAM #0 tabs 11/04/24 magnesium) tablet furosemide 20 mg tablet 20 mg PO DAILY #90 tabs 11/28/24 Results & Data (ED) Vital Signs Vital Signs - 24 hr 02/06/25 03:41 02/06/25 03:57 02/06/25 04:02 Temperature 37.4 C Temperature Source Oral Pulse Rate 126 H Pulse Rate [Right Finger] 117 H Pulse Rate from SpO2 Sensor Respiratory Rate 24 Blood Pressure 170/99 H Blood Pressure [Right Arm] 170/99 H Blood Pressure Mean 118 Blood Pressure Mean [Right Arm] 122 Blood Pressure Position Blood Pressure Position [Right Arm] Lying Pulse Oximetry 95 Oxygen Delivery Method Room Air Sepsis Recent Fever Within 48 Hours Sepsis New/Unexplained Change in Mental Status Sepsis Action Taken by Nursing 02/06/25 04:03 02/06/25 04:11 02/06/25 04:22 Temperature 37.4 C Temperature Source Oral Pulse Rate 119 H 119 H 116 H Pulse Rate [Right Finger] Pulse Rate from SpO2 Sensor Respiratory Rate 19 24 24 Blood Pressure 170/99 H Blood Pressure [Right Arm] Blood Pressure Mean 122 Blood Pressure Mean [Right Arm] Blood Pressure Position Lying Blood Pressure Position [Right Arm] Pulse Oximetry 95 95 Oxygen Delivery Method Room Air Room Air Sepsis Recent Fever Within 48 Hours Yes Sepsis New/Unexplained Change in Mental Status N/A Sepsis Action Taken by Nursing Physician Notified 02/06/25 05:00 02/06/25 05:00 02/06/25 05:30 Temperature Temperature Source Pulse Rate 114 H 120 H Pulse Rate [Right Finger] Pulse Rate from SpO2 Sensor 114 H 118 H Respiratory Rate 23 21 Blood Pressure 166/92 H 166/92 H Blood Pressure [Right Arm] Blood Pressure Mean 115 116 Blood Pressure Mean [Right Arm] Blood Pressure Position Blood Pressure Position [Right Arm] Pulse Oximetry 95 93 Oxygen Delivery Method Room Air Sepsis Recent Fever Within 48 Hours Sepsis New/Unexplained Change in Mental Status Sepsis Action Taken by Nursing Laboratory Data 02/06/25 04:23 02/06/25 04:23 Lab Results 02/06/25 02/06/25 02/06/25 Range/Units 04:04 04:23 06:57 WBC 6.96 (4.8-10.8) K/ul RBC 5.33 (4.20-5.40) M/uL Hgb 14.5 (12.0-16.0) g/dl Hct 44.2 (37.0-47.0) % MCV 82.9 (80.0-100.0) fL MCH 27.2 (25.0-34.0) pg MCHC 32.8 (32.0-36.0) g/dL RDW Std Deviation 47.2 H (36.4-46.3) fL RDW Coeff of [place] 15.7 H (11.5-14.5) % Plt Count 222 (130-400) K/uL MPV 9.6 (9.4-12.4) fL Immature Gran % (Auto) 0.4 % Neut % (Auto) 85.0 % Lymph % (Auto) 8.9 % [place] % (Auto) 3.6 % Eos % (Auto) 1.4 % Baso % (Auto) 0.7 % Neut # (Auto) 5.91 (1.40-6.50) K/uL Lymph # (Auto) 0.62 L (1.20-3.40) K/uL [place] # (Auto) 0.25 (0.11-0.59) K/uL Eos # (Auto) 0.10 (0.00-0.50) K/uL Baso # (Auto) 0.05 (0.00-0.20) K/uL Immature Gran # (Auto) 0.03 (0.01-0.20) K/uL PT 11.6 (9.0-12.0) Seconds INR 1.1 (0.9-1.1) Sodium 138 (136-145) mmol/L Potassium 4.5 (3.5-5.1) mmol/L Chloride 102 (98-107) mmol/L Carbon Dioxide 28 (21-32) mmol/L Anion Gap 8 (3-11) BUN 17 (6-23) mg/dl Creatinine 1.10 (0.6-1.2) mg/dl Est Cr Clr Drug Dosing 53.9 ml/min eGFR 55.07 BUN/Creatinine Ratio 15.5 (10-20) Glucose 132 H (70-99(Fasting)) mg/dl Lactate 2.5 H* 2.1 H* (0.4-2.0) mmol/L Calcium 9.9 (8.6-10.3) mg/dl Total Bilirubin 0.9 (0.2-1.0) mg/dl AST 41 H (13-39) U/L ALT 45 (7-52) U/L Alkaline Phosphatase 109 H (34-104) U/L Total Protein 8.1 (6.0-8.3) gm/dl Albumin 4.6 (3.4-5.0) gm/dl Globulin 3.5 (2.5-4.0) gm/dl Albumin/Globulin Ratio 1.3 (0.9-2) Lipase 88 H (11-82) U/L Procalcitonin 0.26 (0-0.5) ng/ml Urine Color Yellow Urine Appearance Turbid A (Clear) Urine pH 8.5 H (4.5-7.5) Ur Specific [place] 1.012 (1.000-1.030) Urine Protein 2+ H (Negative) Urine Glucose (UA) Negative (Negative) Urine Ketones Negative (Negative) Urine Blood 1+ H (Negative) Urine Nitrite Negative (Negative) Urine Bilirubin Negative (Negative) Urine Urobilinogen Negative (Negative) Ur Leukocyte Esterase 3+ H (Negative) Urine WBC (Auto) >50 H (0-5) /hpf Urine RBC (Auto) 11-20 H (0-2) /hpf U Hyaline Cast (Auto) 0-2 (0-2) /lpf U Epithel Cells (Auto) 0-2 (0-2) /hpf Urine Bacteria (Auto) 3+ H (None Seen) Administered Medications Discontinued Medications Sodium Chloride (Nss) 500 mls @ 999 mls/hr IV .Q31M STA Stop: 02/06/25 04:23 Last Infusion: 02/06/25 05:37 Dose: Infused Documented By: [facility] Admin: 02/06/25 04:41 Dose: 999 mls/hr Documented By: [facility] Sodium Chloride (Nss) 1,000 mls @ 999 mls/hr IV .Q1H1M ONE Stop: 02/06/25 07:00 Last Admin: 02/06/25 06:16 Dose: 999 mls/hr Documented By: [facility] Cefepime HCl (Maxipime 2000mg) 2,000 mg in 20 mls @ 5 mls/min IV NOW STA; Protocol Stop: 02/06/25 06:06 Last Admin: 02/06/25 06:16 Dose: 5 mls/min Documented By: [facility] Morphine Sulfate (Morphine Sulfate 4 Mg/Ml 1 Ml Carp\\Vial) 4 mg IV NOW STA Stop: 02/06/25 06:09 Last Admin: 02/06/25 06:16 Dose: 4 mg Documented By: [facility] Ondansetron HCl (Ondansetron Inj 2 Mg/Ml 2 Ml Vial) 4 mg IV NOW STA Stop: 02/06/25 06:09 Last Admin: 02/06/25 06:16 Dose: 4 mg Documented By: [facility] Imaging Data Radiologist's Impression: Abdomen/Pelvis CT 02/06/25 04:01 EXAM: CT abd pelvis wo con CLINICAL HISTORY: Abdominal pain, dysuria TECHNIQUE: Contiguous axial images were obtained from the level of the diaphragm to the pubic symphysis without intravenous or oral contrast. Coronal and sagittal reconstructions were likewise performed and indicated to increase the sensitivity for detecting clinically relevant pathology. CT scan was performed according to ALARA (as low as reasonable achievable). 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 Evaluation of the abdominal and pelvic visceral organs is limited without intravenous contrast. The unenhanced liver, spleen, pancreas, and adrenal glands are grossly unremarkable. The gallbladder is present. The kidneys are normal in size and attenuation without obvious calcification. Mild fullness noted involving bilateral kidney and bilateral ureter with mild perinephric and periureteric fat stranding up to vesicoureteric junction.- possibility of infective/inflammatory etiology. The urinary bladder is partially distended and shows contrast concentric mural thickening (wall thickness measures about 7-8 mm) with pericystic fat stranding - suggestive of cystitis. No adenopathy or fluid collections are seen. No evidence of focal or diffuse bowel wall thickening or evidence of bowel obstruction is seen. No evidence of inflamed appendix. The aorta is normal in caliber. No aggressive appearing osseous lesions are identified. Uterus appears dysmorphic and shows multiple exophytic lesion - possibility of uterine fibroid- USG correlation is suggested. Diffuse atherosclerotic calcification is noted involving aorta iliac arteries. IMPRESSION: 1. Mild fullness noted involving bilateral kidney and bilateral ureter, with mild perinephric and periureteric fat stranding up to vesicoureteric junction.- possibility of infective/inflammatory etiology.- Mild reduced. 2. The urinary bladder is partially distended and shows contrast concentric mural thickening (wall thickness measures about 7-8 mm) with pericystic fat stranding - suggestive of cystitis.-mild reduced 3. Uterus appears dysmorphic and shows multiple exophytic lesion - possibility of uterine fibroid- USG correlation is suggested.-stable. 4. Prior bilateral basal lung atelectasis are resolved. Electronically signed by Piter Muller 02-06-2025 06:00 AM Discharge Plan Visit Data Chief Complaint: Urinary Symptoms Stated Complaint: Weakness, Fever ED Provider: Ramirez Bryan Discharge Problem: Acute UTI Patient Disposition: Admitted As Inpatient Condition: Fair Forms Stand Alone Forms: [facility] Prescriptions Prescriptions: No Action aspirin [Adult Low Dose Aspirin] 81 mg tablet,delayed release (DR/EC) 81 mg PO DAILY clopidogrel [Plavix] 75 mg tablet 75 mg PO DAILY Qty: 90 3RF Hold Instructions: Resume on 11/04/24. lidocaine 4 % adhesive patch,medicated 1 patch topical DAILY PRN acetaminophen [Tylenol Extra Strength] 500 mg tablet 1,000 mg PO Q8H metoprolol succinate 100 mg tablet extended release 24 hr 150 mg PO DAILY rosuvastatin 20 mg tablet 20 mg PO DAILY furosemide 20 mg tablet 20 mg PO DAILY Qty: 90 3RF (DME) pen needle, diabetic [Pen Needle] 32 gauge x 5/32" needle See Rx Instructions .Route Qty: 100 0RF Rx Instructions: BID (DME) OneTouch Verio test strips Strip See Rx Instructions .Route Qty: 100 0RF Rx Instructions: TID before meals. (DME) lancets [OneTouch Delica Plus Lancet] 33 gauge misc See Rx Instructions .Route Qty: 100 0RF Rx Instructions: TIDM baclofen 10 mg Tablet 10 mg PO BID Qty: 60 2RF magnesium oxide 400 mg (241.3 mg magnesium) Tablet 400 mg PO QAM Qty: 0 0RF Rx Instructions: hold if diarrhea insulin glargine [Lantus U-100 Insulin] 100 unit/mL Solution 5 unit SC DAILY Qty: 0 0RF Referrals Referrals: Akilah Cook PA-C [Primary Care Provider] -
[2025-02-06 04:39] LABS: Hematocrit (blood only) 44.2 % (37.0-47.0); Hemoglobin 14.5 g/dl (12.0-16.0); Mean Corpuscular Hemoglobin 27.2 pg (25.0-34.0); Mean Corpuscular Hgb Conc 32.8 g/dL (32.0-36.0); Mean Corpuscular Volume 82.9 fL (80.0-100.0); Mean Platelet Volume 9.6 fL (9.4-12.4); Platelet Count 222 K/uL (130-400); RDW Coefficient of Variation 15.7 % (11.5-14.5); RDW Standard Deviation 47.2 fL (36.4-46.3); Red Blood Count 5.33 M/uL (4.20-5.40); White Blood Count 6.96 K/ul (4.8-10.8)
[2025-02-06 04:41] LABS: Appearance Urine Turbid (Clear); Bacteria Urine Automated 3+ (None Seen); Bilirubin Urine Negative (Negative); Blood Urine 1+ (Negative); Cast Urine Automated 0-2 /lpf (0-2); Color Urine Yellow; Epithelial Cell Urine Auto 0-2 /hpf (0-2); Glucose Urine UA Negative (Negative); Ketones Urine Negative (Negative); Leukocyte Esterase Urine 3+ (Negative); Nitrite Urine Negative (Negative); Protein Urine 2+ (Negative); Specific Gravity Urine 1.012 (1.000-1.030); Urobilinogen Urine Negative (Negative); WBC Urine Automated >50 /hpf (0-5); pH Urine 8.5 (4.5-7.5)
[2025-02-06] MEDS: SODIUM CHLORIDE 0.9% 500 ML IV STA (04:41)
[2025-02-06 04:56] LABS: Basophils # (auto) 0.05 K/uL (0.00-0.20); Basophils % (auto) 0.7 %; Eosinophils % (auto) 1.4 %; Immature Granulocytes # (auto) 0.03 K/uL (0.01-0.20); Immature Granulocytes % (auto) 0.4 %; Lymphocytes # (auto) 0.62 K/uL (1.20-3.40); Lymphocytes % (auto) 8.9 %; Monocytes # (auto) 0.25 K/uL (0.11-0.59); Monocytes % (auto) 3.6 %; Neutrophils # (auto) 5.91 K/uL (1.40-6.50)
[2025-02-06 05:06] LABS: INR 1.1 (0.9-1.1); Prothrombin Time 11.6 Seconds (9.0-12.0)
[2025-02-06 05:09] LABS: Albumin Globulin Ratio 1.3 (0.9-2); Albumin Level 4.6 gm/dl (3.4-5.0); BUN Creatinine Ratio 15.5 (10-20); Bilirubin,Total 0.9 mg/dl (0.2-1.0); Calcium 9.9 mg/dl (8.6-10.3); Creatinine Clr Calc Pharmacy 53.9 ml/min; Globulin 3.5 gm/dl (2.5-4.0); Potassium 4.5 mmol/L (3.5-5.1); Total Protein 8.1 gm/dl (6.0-8.3)
--- NOTE | 2025-02-06 06:01 | CT Scan Report ---
EXAM: CT abd pelvis wo con CLINICAL HISTORY: Abdominal pain, dysuria TECHNIQUE: Contiguous axial images were obtained from the level of the diaphragm to the pubic symphysis without intravenous or oral contrast. Coronal and sagittal reconstructions were likewise performed and indicated to increase the sensitivity for detecting clinically relevant pathology. CT scan was performed according to ALARA (as low as reasonable achievable). 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 Evaluation of the abdominal and pelvic visceral organs is limited without intravenous contrast. The unenhanced liver, spleen, pancreas, and adrenal glands are grossly unremarkable. The gallbladder is present. The kidneys are normal in size and attenuation without obvious calcification. Mild fullness noted involving bilateral kidney and bilateral ureter with mild perinephric and periureteric fat stranding up to vesicoureteric junction.- possibility of infective/inflammatory etiology. The urinary bladder is partially distended and shows contrast concentric mural thickening (wall thickness measures about 7-8 mm) with pericystic fat stranding - suggestive of cystitis. No adenopathy or fluid collections are seen. No evidence of focal or diffuse bowel wall thickening or evidence of bowel obstruction is seen. No evidence of inflamed appendix. The aorta is normal in caliber. No aggressive appearing osseous lesions are identified. Uterus appears dysmorphic and shows multiple exophytic lesion - possibility of uterine fibroid- USG correlation is suggested. Diffuse atherosclerotic calcification is noted involving aorta iliac arteries. IMPRESSION: 1. Mild fullness noted involving bilateral kidney and bilateral ureter, with mild perinephric and periureteric fat stranding up to vesicoureteric junction.- possibility of infective/inflammatory etiology.- Mild reduced. 2. The urinary bladder is partially distended and shows contrast concentric mural thickening (wall thickness measures about 7-8 mm) with pericystic fat stranding - suggestive of cystitis.-mild reduced 3. Uterus appears dysmorphic and shows multiple exophytic lesion - possibility of uterine fibroid- USG correlation is suggested.-stable. 4. Prior bilateral basal lung atelectasis are resolved. Electronically signed by Piter Muller 02-06-2025 06:00 AM
[2025-02-06] MEDS: ONDANSETRON INJ 2 MG/ML 2 ML VIAL IV STA (06:16)
[2025-02-06] MEDS: CEFEPIME 2000MG 2,000 MG/20 ML SYR IV STA (06:16)
[2025-02-06] MEDS: MoRPHine SULFATE 4 MG/ML 1 ML CARP\\VIAL IV STA (06:16)
[2025-02-06] MEDS: SODIUM CHLORIDE 0.9% 1,000 ML IV ONE (06:16)
--- NOTE | 2025-02-06 08:17 | History & Physical Report ---
"Date of Service February 06, 2025 Assessment & Plan (1) Acute UTI: (2) Coronary artery disease: (3) Hypertension: (4) Tachycardia: Plan Lillian is a 69F with a PMHx of CH, HLD, HTN, CAD with multiple stents in place, DMT2, Chronic leg and back pain and recent ICU admission requiring pressors for urosepsis 10/2024 who presents to the ER with fatigue and dysuria. Initial evaluation with CT A/P fullness in bilateral kidney and bilateral ureter with perinephritic stranding, and partially distented urinary bladder with concentrical mural thickening. UA also concerning for infection. Admitted for IV antibiotics and further workup. #UTI - complicated | Urosepsis (with elevated RR, tachycardia) Received 2.5L IVF for IBW. Lactate 2.5 --> 2.1 UA concerning for UTI, UC pending Continue cefepime PT/OT Elevated lipase - no abd pain, trend with AM labs #Tachycardia, new hypoxia, leg swelling Check CTA PE protocol, left leg Doppler - pending wean O2 as able, baseline room air # CAD | Stents in place | HLD Continue ASA, Plavix, metoprolol and statin #CHF Echo 10/2024 EF 60-65%, mild LVH takes lasix every other day - HELD, eval volume status/breathing AM 02/07 to decide if reinstitute diuretics #DMT2 Home meds: lantus 5u, Last A1c 7.8 08/2024 - pt reports recheck check 6.9 (not in our system) Will continue lantus 5units, defer SSI for now, but monitor BSGs #RLS Continue Neupro patch # Possible Uterine fibroid - seen on CT A/P, recommend outpatient follow up/US, espeically if any instances of post menopausal bleeding # Possible MS - continue outpatient follow up, has MRIs ordered Dispo: admit to med/tele DVT proh: CODE STATUS: DNR/DNI History of Present Illness Primary Care Provider: Akilah Cook PA-C Lillian is a 69F with a PMHx of CH, HLD, HTN, CAD with multiple stents in place, DMT2, Chronic leg and back pain and recent ICU admission requiring pressors for urosepsis 10/2024 who presents to the ER with fatigue and dysuria. Symptoms started the evening of 02/05, not feeling good, very cold. Did not know who the president was. Endorses burning with urination, is incontinent of urine. Reports subjective fever. Denies pain on admission. No cough. Did not take her meds this morning. Wheelchair bound after her last ICU admission, can barely get around with walker if needed. Swelling in R > left leg. New right leg pain. No ETOH. No smoking. Decision maker: , Sarah ED Course: Zofran 4mg IV Morphine 4mg IV x1 Cefepime 2000mg IV NSS 1500mL Allergies Allergy/AdvReac Type Severity Reaction Status Date / Time bee venom protein (honey bee) Allergy Severe DIFFICULTY Verified 01/09/25 11:17 BREATHING/HIVES/ITCHY Home Medications Medication Instructions Recorded Confirmed Type aspirin 81 mg tablet,delayed 81 mg PO DAILY 07/06/20 02/06/25 History release (Adult Low Dose Aspirin) clopidogrel 75 mg tablet (Plavix) 75 mg PO DAILY #90 tabs 10/07/24 02/06/25 Rx baclofen 10 mg tablet 10 mg PO BID #60 tabs 11/03/24 02/06/25 Rx insulin glargine 100 unit/mL 5 unit (0.05 mL) SC DAILY #0 mL 11/04/24 02/06/25 Rx subcutaneous solution (Lantus U-100 Insulin) magnesium oxide 400 mg (241.3 mg 400 mg PO QAM #0 tabs 11/04/24 02/06/25 Rx magnesium) tablet lidocaine 4 % topical patch 1 patch topical DAILY PRN Pain 11/18/24 02/06/25 History acetaminophen 500 mg tablet 1,000 mg PO Q8H 11/27/24 02/06/25 History (Tylenol Extra Strength) metoprolol succinate 100 mg 150 mg PO DAILY 11/27/24 02/06/25 History tablet,extended release 24 hr rosuvastatin 20 mg tablet 20 mg PO DAILY 11/27/24 02/06/25 History furosemide 20 mg tablet 20 mg PO Q OTHER DAY 02/06/25 02/06/25 History rosuvastatin 40 mg tablet 40 mg PO DAILY 02/06/25 02/06/25 History rotigotine 1 mg/24 hour 1 patch transdermal DAILY 02/06/25 02/06/25 History transdermal 24 hour patch (Neupro) Past Med/Surg History Problem List (Updated 02/06/25 @ 06:17 by Ramirez Bryan DO) Acute UTI (Acute) Ataxia Urinary incontinence Leg weakness Norovirus Paroxysmal atrial flutter Acute on chronic heart failure with preserved ejection fraction (HFpEF) Acute hypercapnic respiratory failure CARLIN (acute kidney injury) Dystonia Cervical myelopathy Demyelinating disease of central nervous system Carotid stenosis, right Elevated lactic acid level (Acute) Elevated troponin (Acute) Seizure-like activity (Acute) Acute UTI (Acute) Tachycardia (Acute) Hypertension (Acute) Altered mental status (Acute) Encephalopathy Septic shock Pyelonephritis Hypotension Elevated troponin Seizure-like activity Lumbar spondylosis Lumbar stenosis with neurogenic claudication Spondylolisthesis, lumbar region Scoliosis of lumbar region due to degenerative disease of spine in adult Left leg weakness Recurrent UTI Sciatica (Acute) Fever (Acute) CHF (congestive heart failure) Acute metabolic encephalopathy Tachycardia Uncontrolled type 2 diabetes mellitus with hyperglycemia Altered mental status Sepsis Lumbar facet joint syndrome Spinal stenosis, lumbar region without neurogenic claudication Hypercholesteremia HTN (hypertension) (Acute) Restless leg Medical History Coronary artery disease Surgical History History of lumbar surgery Social History Smoking Status: Never smoker Tobacco Type: Cigarettes Hx Alcohol Use: No Hx Substance Use: No Preferred Language: Uzbek Communication Ability: Unable Visual Impairment: Limited Hearing Ability: Hard of Hearing Pusher Runner Required: No Beliefs That Will Affect Care: None marital status: Current Living Situation: Spouse current occupational status: retired Feels Safe at Home: Yes Assistive Devices: Cane and Walker Review of Systems Review of Systems: All systems reviewed & are unremarkable except as noted in Subjective Physical Exam Physical Exam: General: NAD, VS as above, lying in bed appears ill Resp: normal respiratory effort, lungs clear to auscultation CV: tachycardic, no murmur, Abd: normal bowel sounds, non tender, no hepatosplenomegaly Back: no CVA tenderness Extremities: left leg swelling > Right Neuro: A&O x3, Skin: intact, no lesions noted Results & Data Results & Data Vital Signs (Past 12 Hours) Vital Signs Temp Pulse Pulse Resp BP BP Pulse Ox 02/06/25 07:20 128 H 20 157/86 H 90 02/06/25 05:30 120 H 21 166/92 H 93 02/06/25 05:00 166/92 H 02/06/25 05:00 114 H 23 95 02/06/25 04:22 116 H 24 95 02/06/25 04:11 99.3 F 119 H 24 170/99 H 95 02/06/25 04:03 119 H 19 02/06/25 04:02 170/99 H 02/06/25 03:57 126 H 02/06/25 03:41 99.3 F 117 H 24 170/99 H 95 O2 Del Method 02/06/25 07:20 02/06/25 05:30 Room Air 02/06/25 05:00 02/06/25 05:00 02/06/25 04:22 Room Air 02/06/25 04:11 Room Air 02/06/25 04:03 02/06/25 04:02 02/06/25 03:57 02/06/25 03:41 Room Air Laboratory Results cbc and chemistry reviewed UA reviewed lipase reviewed Diagnostic Findings CT a/p reviewed Supervising Physician Co-Signing Physician Notes Patient seen and examined, chart reviewed, case discussed with Adeline Laughlin PA-C and I agree with the assessment and plan as above except as otherwise noted. Patient is seen at the bedside in concert with PA provider. Labs and images reviewed Lillian is a 69-year-old female with a past medical history of paroxysmal A-fib, cervical myelopathy, pyelonephritis, uncontrolled type 2 diabetes mellitus, hyperlipidemia, hypertension, carotid stenosis, CAD with history of PCI to LAD x 3/RCA CHFpEF on 20 mg Lasix at baseline with no recent anginal symptoms who presented with fever/chills, dysuria, and abdominal discomfort similar to past UTIs. She has no leukocytosis. Meets sepsis criteria due to tachypnea/tachycardia and identified soruce. No leukocytosis/hypotension. Lactate 2.5 on presentation and downtrending to 2.1 on recheck. She received 1500 cc of crystalloid while in the ER. She is tachycardic and hypertensive. SpO2 88%. Procalcitonin was not elevated. Sepsis IBW recommendations 1705, AB [id number] cc. 30 cc/kg sepsis targets were not given due to borderline hypoxia and history of heart failure/volume overload UA is infected appearing, CTA/P shows fullness of the bilateral kidney and ureter with mild perinephric/periureteral fat stranding up to the vesicouterine junction suggestive of pyelonephritis. Urinary bladder is partially distended with wall thickening suggestive of cystitis. Infected UA, dysuria, and perinephric fat stranding all system with pyelonephritis. Urine culture is pending. She has a prior history of Klebsiella pneumonia and Pseudomonas UTIs. Has been ordered cefepime to include pseudomonal coverage, will continue this pending urine culture results. Due to elevated lactate, persistent tachycardia, and dry mucous membrane with inferior leyva of the CTA/P showing lung bases without effusion/edema will give another 500 cc of crystalloid to meet IBW recommendations. Lungs are clear to auscultation and no crackles/rales in the bases. She does endorse new right lower extremity calf pain, and has an approximate 2.5-3 cm calf asymmetry on that side. She is tachycardic in the 120s normotensive and hypoxic. She did miss her beta-silviano this morning however has a disproportionate tachycardia. Do not hear evidence of volume overload and superior leyva on CTA/P are clear. CTA ordered for PE rule out due to sinus tachycardia, hypoxia, disproportionate tachycardia with a calf asymmetry. DDx of hypoxia includes sepsis and HFpEF. Agree with above PG Care Time/CCT Total # of Minutes Spent Total Time Spent with Patient: Total time spent is greater than 50% in coordination of care (as documented) at patient's floor/unit and/or counseling patient: Coding Level of Care Code 63450 INT INP/OBS CARE 3/75MIN Diagnoses Acute UTI N39.0 Coronary artery disease I25.10 Hypertension I10 Hypertension type: unspecified Tachycardia R00.0 (3) Hypertension Hypertension type: unspecified Qualified Code(s): I10 - Essential (primary) hypertension"
[2025-02-06] MEDS: LACTATED RINGER'S 500 ML IV ONE (08:28)
[2025-02-06] MEDS: OPTIRAY 320 125ml IV ONE (09:12)
[2025-02-06] MEDS: CLOPIDOGREL BISULFATE 75 MG TAB PO ONE (09:25)
[2025-02-06] MEDS: ASPIRIN 81 MG ECTAB PO STA (09:25)
[2025-02-06] MEDS: METOPROLOL SUCC 50MG EXT REL TAB PO STA (09:26)
--- NOTE | 2025-02-06 09:36 | CT Scan Report ---
CT angio chest PE protocol CT DOSE: 827.21 mGy.cm HISTORY: PE. TECHNIQUE: Multiple CTA images of the chest were obtained after the intravenous administration of 112 ml Optiray. Coronal and sagittal MIPS were obtained from the axial data set and were submitted for review. All measurements were obtained according to NASCET criteria. A dose lowering technique was u tilized adhering to the principles of ALARA. COMPARISON STUDY: None FINDINGS: There is minimal dependent atelectasis or scarring in the lung bases. There is a small area of patchy groundglass opacity lateral left upper lobe series 4 image 151, consistent with small area of pneumonitis. No other pulmonary consolidation or pleural effusion. No pneumothorax. No enlarged a denopathy. There is a tiny left thyroid lobe nodule. No pericardial effusion. There are diffuse coron penelope artery and aortic calcifications. No thoracic aortic dissection or aneurysm. No pulmonary embolis m. There are mild thoracic spine degenerative changes with mild chronic-appearing height loss at a fe w mid thoracic vertebral bodies. No acute osseous findings. IMPRESSION: 1. No pulmonary embolism. 2. Small area of pneumonitis at the left upper lung lobe. No pneumonia otherwise. 3. Otherwise as described. ACT 112: Negative or not required by law. The above report was generated using voice recognition software. It may contain grammatical, syntax o r spelling errors. Electronically signed by: Eliecer Amaral M.D. 02/06/2025 9:34 AM
--- NOTE | 2025-02-06 10:34 | Ultrasound Report ---
RIGHT LOWER EXTREMITY VENOUS DOPPLER CLINICAL HISTORY: Right calf asymmetry, leg pain, evaluate for DVT. COMPARISON STUDY: No previous studies for comparison. TECHNIQUE: Sonography of the deep venous system of the right lower extremity was performed. Compress ion and augmentation were evaluated. FINDINGS: The right common femoral, superficial femoral and popliteal veins were compressible. Augme ntation was normal. Flow was shown within the deep calf vessels. IMPRESSION: No evidence of deep venous thrombus within the right lower extremity. ACT 112: Negative or not required by law. Electronically signed by: Mu Arriaza M.D. 02/06/2025 10:32 AM
[2025-02-06] MEDS: MoRPHine SULFATE 2 MG/ML CARP IV STA (11:07)
[2025-02-06] MEDS: ACETAMINOPHEN 500 MG TAB PO STA (11:07)
[2025-02-06] MEDS ORDERED: CARBOHYDRATES FOR HYPOGLYCEMIA PO PRN (12:40)
[2025-02-06] MEDS ORDERED: MELATONIN 3 MG TAB PO PRN (12:40)
[2025-02-06] MEDS ORDERED: GLUCOSE 40% GEL 15 GM TUBE PO PRN (12:40)
[2025-02-06] MEDS ORDERED: ONDANSETRON INJ 2 MG/ML 2 ML VIAL IV PRN (12:40)
[2025-02-06] MEDS ORDERED: DEXTROSE 50% 50 ML SYRINGE IV PRN (12:40)
[2025-02-06] MEDS ORDERED: GLUCAGON FOR INJ 1 MG VIAL SQ PRN (12:40)
[2025-02-06] MEDS ORDERED: GLUCOSE 10 TAB/TUBE PO PRN (12:40)
[2025-02-06] MEDS: MAGNESIUM OXIDE 400 MG TAB PO SCH (13:13)
[2025-02-06] MEDS: ROSUVASTATIN CALCIUM 20 MG TAB PO SCH (13:13)
[2025-02-06] MEDS: BACLOFEN 10 MG TAB PO SCH (13:13)
[2025-02-06] MEDS: LANTUS PER UNIT CHARGE SC SCH (13:34)
[2025-02-06] MEDS: ACETAMINOPHEN 500 MG TAB PO PRN (17:11)
[2025-02-06] MEDS: CEFEPIME 2000MG 2,000 MG/20 ML SYR IV SCH (18:11)
[2025-02-07 07:44] LABS: Basophils # (auto) 0.04 K/uL (0.00-0.20); Basophils % (auto) 0.5 %; Eosinophils # (auto) 0.14 K/uL (0.00-0.50); Eosinophils % (auto) 1.6 %; Hematocrit (blood only) 39.6 % (37.0-47.0); Hemoglobin 12.9 g/dl (12.0-16.0); Immature Granulocytes # (auto) 0.03 K/uL (0.01-0.20); Immature Granulocytes % (auto) 0.3 %; Lymphocytes # (auto) 1.46 K/uL (1.20-3.40); Mean Corpuscular Hemoglobin 27.1 pg (25.0-34.0); Mean Corpuscular Hgb Conc 32.6 g/dL (32.0-36.0); Mean Corpuscular Volume 83.2 fL (80.0-100.0); Mean Platelet Volume 9.8 fL (9.4-12.4); Monocytes % (auto) 11.6 %; Neutrophils # (auto) 5.94 K/uL (1.40-6.50); Platelet Count 199 K/uL (130-400); RDW Coefficient of Variation 15.8 % (11.5-14.5); RDW Standard Deviation 48.4 fL (36.4-46.3); Red Blood Count 4.76 M/uL (4.20-5.40); White Blood Count 8.61 K/ul (4.8-10.8)
[2025-02-07 08:07] LABS: BUN Creatinine Ratio 17.3 (10-20); Calcium 9.5 mg/dl (8.6-10.3); Potassium 4.2 mmol/L (3.5-5.1)
[2025-02-07] MEDS: METOPROLOL SUCC 50MG EXT REL TAB PO SCH (08:07)
[2025-02-07] MEDS: CLOPIDOGREL BISULFATE 75 MG TAB PO SCH (08:08)
[2025-02-07] MEDS: ASPIRIN 81 MG ECTAB PO SCH (08:08)
[2025-02-07] MEDS: traMADol HCL 50 MG TABLET PO PRN (10:12)
--- NOTE | 2025-02-07 11:21 | Hospitalist Progress Note ---
"Date of Service February 07, 2025 Assessment & Plan (1) Acute UTI: (2) Coronary artery disease: (3) Hypertension: (4) Tachycardia: Plan Lillian is a 69F with a PMHx of CH, HLD, HTN, CAD with multiple stents in place, DMT2, Chronic leg and back pain and recent ICU admission requiring pressors for urosepsis 10/2024 who presents to the ER with fatigue and dysuria. Initial evaluation with CT A/P fullness in bilateral kidney and bilateral ureter with perinephritic stranding, and partially distented urinary bladder with concentrical mural thickening. UA also concerning for infection. Admitted for IV antibiotics and further workup. She has a history of pseudomonal UTI. She remains admitted pending results of her UCx and pending PT/OT reevaluations. #UTI - complicated | Urosepsis (with elevated RR, tachycardia) With elevated lactate on admission, improved following fluids UA infected appearing, UCx remains pending Continue cefepime With acute on chronic weakness likely due to UTI. PT/OT pending #Tachycardia, new hypoxia, leg swelling CTA with no evidence of PE LLE Doppler with no evidence of DVT # CAD | Stents in place | HLD Continue ASA, Plavix, metoprolol and statin #CHF Echo 10/2024 EF 60-65%, mild LVH takes lasix every other day Restart lasix 02/08 #DMT2 Home meds: lantus 5u, Last A1c 7.8 08/2024 - pt reports recheck check 6.9 (not in our system) continue lantus 5units, defer SSI for now, but monitor BSGs #RLS Continue Neupro patch (pt is having this brought in from home) #Back pain Patient reports she has chronic mid/low back pain. Current pain feels similar to her prior pain but somewhat increased 5/10 Tramadol, heating pack ordered # Possible Uterine fibroid - seen on CT A/P, recommend outpatient follow up/US. No active bleeding at time of admission # Possible MS - continue outpatient follow up, has MRIs ordered Dispo: admit to med/tele DVT prophylaxis: Lovenox CODE STATUS: DNR/DNI Admission and Anticipated Discharge Date Admission Date: February 06, 2025 Subjective Seen the bedside. She denies fever/chills/sweats overnight. She does feel uncomfortable and notes that she is having her Neupro patch brought in by her hu abhi but her restless legs kept her up most of the night so she is very tired. Additionally she feels her chronic back pain has the same quality as prior but is a little bit worse while laying in the hospital bed. No other questions or concerns at time of evaluation Physical Exam Physical Exam: General: A&Ox3. NAD. Cooperative. HEENT: Atraumatic, normocephalic. Vision and hearing grossly intact Pulm: Diminished, trace basilar crackles which clear on deep breathing. Symmetrical chest rise. No increase in work of breathing. No respiratory distress. Cardiac: Regular, tachycardic. Radial pulses intact and symmetrical. Abdominal: Nontender, nondistended, soft. BS present. Results & Data Results & Data Vital Signs (Past 12 Hours) Vital Signs Temp Pulse Pulse Resp BP Pulse Ox O2 Del Method 02/07/25 08:01 37.1 C 91 H 19 176/82 H 92 Room Air 02/07/25 05:40 86 02/07/25 04:12 37.2 C 95 H 14 143/71 H 90 Room Air PG Care Time/CCT Total # of Minutes Spent Total Time Spent with Patient: Total time spent is greater than 50% in coordination of care (as documented) at patient's floor/unit and/or counseling patient: Coding Level of Care Code 31819 SUB INP/OBS CARE 3/50MIN Diagnoses Acute UTI N39.0 Coronary artery disease I25.10 Hypertension I10 Hypertension type: unspecified Tachycardia R00.0 (3) Hypertension Hypertension type: unspecified Qualified Code(s): I10 - Essential (primary) hypertension"
[2025-02-07] MEDS: ROTIGOTINE PATCH TD SCH (13:14)
[2025-02-08 08:04] LABS: Basophils # (auto) 0.03 K/uL (0.00-0.20); Basophils % (auto) 0.4 %; Eosinophils # (auto) 0.16 K/uL (0.00-0.50); Eosinophils % (auto) 2.3 %; Hematocrit (blood only) 37.8 % (37.0-47.0); Hemoglobin 12.2 g/dl (12.0-16.0); Immature Granulocytes # (auto) 0.04 K/uL (0.01-0.20); Immature Granulocytes % (auto) 0.6 %; Lymphocytes # (auto) 1.46 K/uL (1.20-3.40); Lymphocytes % (auto) 21.3 %; Mean Corpuscular Hemoglobin 27.1 pg (25.0-34.0); Mean Corpuscular Hgb Conc 32.3 g/dL (32.0-36.0); Mean Corpuscular Volume 83.8 fL (80.0-100.0); Monocytes # (auto) 0.87 K/uL (0.11-0.59); Monocytes % (auto) 12.7 %; Neutrophils % (auto) 62.7 %; Platelet Count 195 K/uL (130-400); RDW Coefficient of Variation 15.6 % (11.5-14.5); RDW Standard Deviation 47.8 fL (36.4-46.3); Red Blood Count 4.51 M/uL (4.20-5.40); White Blood Count 6.86 K/ul (4.8-10.8)
[2025-02-08] MEDS: POLYETHYLENE (MIRALAX) 17 GM PACK PO PRN (08:04)
[2025-02-08] MEDS: ENOXAPARIN INJ 40 MG/0.4 ML SYR SQ SCH (08:09)
[2025-02-08 08:19] LABS: BUN Creatinine Ratio 18.3 (10-20); Calcium 9.5 mg/dl (8.6-10.3); Creatinine Clr Calc Pharmacy 59.1 ml/min
--- NOTE | 2025-02-08 12:25 | Hospitalist Progress Note ---
"Date of Service February 08, 2025 Assessment & Plan (1) Acute UTI: (2) Coronary artery disease: (3) Hypertension: (4) Tachycardia: Plan Lillian is a 69F with a PMHx of CH, HLD, HTN, CAD with multiple stents in place, DMT2, Chronic leg and back pain and recent ICU admission requiring pressors for urosepsis 10/2024 who presents to the ER with fatigue and dysuria. Initial evaluation with CT A/P fullness in bilateral kidney and bilateral ureter with perinephritic stranding, and partially distented urinary bladder with concentrical mural thickening. UA also concerning for infection. Admitted for IV antibiotics and further workup. She has a history of pseudomonal UTI. She remains admitted pending results of her UCx and pending PT/OT reevaluations. #UTI - complicated | Urosepsis (with elevated RR, tachycardia) With elevated lactate on admission, improved following fluids UA infected appearing, UCx E coli pending sensitivities Continue cefepime, narrow when sensitivities available With acute on chronic weakness likely due to UTI. - OT rec IR vs HHS depending on progression. PT pending. Will awake speciation, reeval strength and hopefully dispo to HHS vs IR 02/09. Discussed w/ CM #Tachycardia, new hypoxia, leg swelling CTA with no evidence of PE LLE Doppler with no evidence of DVT # CAD | Stents in place | HLD Continue ASA, Plavix, metoprolol and statin #CHF Echo 10/2024 EF 60-65%, mild LVH takes lasix every other day Restart lasix 02/08 #DMT2 Home meds: lantus 5u, Last A1c 7.8 08/2024 - pt reports recheck check 6.9 (not in our system) continue lantus 5units, defer SSI for now, but monitor BSGs #RLS Continue Neupro patch (pt had brought in from home). has significantly helped her RLS and sleep #Back pain Patient reports she has chronic mid/low back pain. Current pain feels similar to her prior pain but somewhat increased 5/10 Tramadol, heating pack PRN # Possible Uterine fibroid - seen on CT A/P, recommend outpatient follow up/US. No active bleeding at time of admission # Possible MS - continue outpatient follow up, has MRIs ordered Dispo: admit to med/tele DVT prophylaxis: Lovenox CODE STATUS: DNR/DNI Admission and Anticipated Discharge Date Admission Date: February 06, 2025 Subjective Leg swelling better. No fevers or chills. No dysuria Feeling improved, but tired Worked with OT. ?IR vs HHS depending on progression, has not yet seen PT UC with E coli, no sensitivities available +constipation, no other concerns this AM Physical Exam Physical Exam: General: A&Ox3. NAD. Cooperative. HEENT: Atraumatic, normocephalic. Vision and hearing grossly intact Pulm: Diminished, trace basilar crackles which clear on deep breathing. Symme trical chest rise. No increase in work of breathing. No respiratory distress. Cardiac: Regular, tachycardic. Radial pulses intact and symmetrical. Abdominal: Nontender, nondistended, soft. BS present. Ext: LE without edema, cap refill <2 seconds b/l in the hallux Results & Data Results & Data Vital Signs (Past 12 Hours) Vital Signs Temp Pulse Pulse Resp BP Pulse Ox O2 Del Method 02/08/25 11:20 36.5 C 74 18 149/79 H 92 Room Air 02/08/25 07:47 37.2 C 91 H 18 146/84 H 92 Room Air 02/08/25 05:52 93 H 02/08/25 03:35 37.4 C 92 H 18 157/78 H 93 Room Air PG Care Time/CCT Total # of Minutes Spent Total Time Spent with Patient: Total time spent is greater than 50% in coordination of care (as documented) at patient's floor/unit and/or counseling patient: Coding Level of Care Code 94456 SUB INP/OBS CARE 2/35MIN Diagnoses Acute UTI N39.0 Coronary artery disease I25.10 Hypertension I10 Hypertension type: unspecified Tachycardia R00.0 (3) Hypertension Hypertension type: unspecified Qualified Code(s): I10 - Essential (primary) hypertension"
[2025-02-09 06:55] LABS: Basophils # (auto) 0.03 K/uL (0.00-0.20); Basophils % (auto) 0.5 %; Eosinophils # (auto) 0.22 K/uL (0.00-0.50); Eosinophils % (auto) 3.7 %; Immature Granulocytes # (auto) 0.03 K/uL (0.01-0.20); Immature Granulocytes % (auto) 0.5 %; Lymphocytes # (auto) 1.91 K/uL (1.20-3.40); Mean Corpuscular Hgb Conc 32.4 g/dL (32.0-36.0); Mean Corpuscular Volume 83.1 fL (80.0-100.0); Mean Platelet Volume 9.6 fL (9.4-12.4); Monocytes # (auto) 1.07 K/uL (0.11-0.59); Neutrophils % (auto) 45.3 %; Platelet Count 205 K/uL (130-400); RDW Coefficient of Variation 15.3 % (11.5-14.5); RDW Standard Deviation 46.4 fL (36.4-46.3); Red Blood Count 4.45 M/uL (4.20-5.40); White Blood Count 5.96 K/ul (4.8-10.8)
[2025-02-09 07:24] LABS: BUN Creatinine Ratio 23.6 (10-20); Calcium 9.2 mg/dl (8.6-10.3); Creatinine Clr Calc Pharmacy 61.3 ml/min; Potassium 3.9 mmol/L (3.5-5.1)
--- NOTE | 2025-02-09 08:32 | Discharge Summary ---
"Discharge Summary Date of Service February 09, 2025 Principal Dx & Hospital Course #1 = Principal Diagnosis (1) Acute UTI: (2) Coronary artery disease: (3) Hypertension: (4) Tachycardia: Serg Snyder is a 69F with a PMHx of CH, HLD, HTN, CAD with multiple stents in place, DMT2, Chronic leg and back pain and recent ICU admission requiring pressors for urosepsis 10/2024 who presents to the ER with fatigue and dysuria. Initial evaluation with CT A/P fullness in bilateral kidney and bilateral ureter with perinephritic stranding, and partially distented urinary bladder with concentrical mural thickening. UA also concerning for infection. Admitted for IV antibiotics and further workup. She has a history of pseudomonal UTI. She remains admitted pending results of her UCx and pending PT/OT reevaluations. Speciate for pansensitive E. coli. Antibiotics narrowed to Keflex. OT recommended IR versus home health PT recommended To do as outpatient: Follow-up with PCP Follow-up with neurology for continued MS evaluation/routine follow-up Complete 4 additional days of treatment with cefuroxime 250 mg twice daily for complicated UTI Continued PT/OT #UTI - complicated | Urosepsis (with elevated RR, tachycardia) With elevated lactate on admission, improved following fluids UA infected appearing, UCx pansensitive E. coli Narrowed to Keflex to complete a total 7-day course of antibiotics for complicated UTI #Tachycardia, new hypoxia, leg swelling CTA with no evidence of PE LLE Doppler with no evidence of DVT # CAD | Stents in place | HLD Continue ASA, Plavix, metoprolol and statin #CHF Echo 10/2024 EF 60-65%, mild LVH takes lasix every other day Lasix continued on discharge #DMT2 Home meds: lantus 5u, Last A1c 7.8 08/2024 - pt reports recheck check 6.9 (not in our system) #RLS Continue Neupro patch (pt had brought in from home). has significantly helped her RLS and sleep #Back pain Patient reports she has chronic mid/low back pain. Current pain feels similar to her prior pain but somewhat increased 5/10. Improved with symptomatic treatment Tramadol, heating pack PRN # Possible Uterine fibroid - seen on CT A/P, recommend outpatient follow up/US. No active bleeding at time of admission # Possible MS - continue outpatient follow up, has MRIs ordered as outpatient. No acute/worsened MS symptoms during admission Admission HPI Per Admitting Provider Lillian is a 69F with a PMHx of CH, HLD, HTN, CAD with multiple stents in place, DMT2, Chronic leg and back pain and recent ICU admission requiring pressors for urosepsis 10/2024 who presents to the ER with fatigue and dysuria. Symptoms started the evening of 02/05, not feeling good, very cold. Did not know who the president was. Endorses burning with urination, is incontinent of urine. Reports subjective fever. Denies pain on admission. No cough. Did not take her meds this morning. Wheelchair bound after her last ICU admission, can barely get around with walker if needed. Swelling in R > left leg. New right leg pain. No ETOH. No smoking. Decision maker: , Sarah ED Course: Zofran 4mg IV Morphine 4mg IV x1 Cefepime 2000mg IV NSS 1500mL Discharge Exam General: A&Ox3. NAD. Cooperative. HEENT: Atraumatic, normocephalic. Vision and hearing grossly intact Pulm: Diminished, but grossly CTAB. Symmetrical chest rise. No increase in work of breathing. No respiratory distress. Cardiac: Regular, tachycardic. Radial pulses intact and symmetrical. Abdominal: Nontender, nondistended, soft. BS present. Ext: LE without edema, cap refill <2 seconds b/l in the hallux Discharge Plan Discharge Items Patient Disposition: Home - Self-Care Reason For Visit: UTI / SEPSIS Discharge Diagnosis: E coli complicated UTI Condition on Discharge: Fair Activity: Resume your previous activity Non-emergency contact: Primary Care Provider and Specialist Call non-emergency contact if: you have any medication questions, your symptoms worsen and your pain is not controlled Follow-up/Referrals: Akilah Cook PA-C [Primary Care Provider] - Diet: Carb Consistent or DM2 Addtl Attending Provider Instructions: You were seen in the hospital for a complicated urinary tract infection. You were treated with an antibiotic cefepime to cover for certain resistant organisms you have had infections with in the past. Your urine cultures showed a UTI caused by E. coli without additional resistances. You have been discharged to complete 4 additional days on antibiotic called cefuroxime. Please take cefuroxime 250 mg by mouth twice daily for 4 days to complete a course of treatment for UTI. If you develop any new or worsening symptoms including fever, chills, sweats, chest pain, chest pressure, difficulty breathing, uncontrolled nausea/vomiting, rash, wheezing, passing out or nearly passing out, bleeding, black/bloody bowel movements, or other new or concerning symptoms please call your primary care physician, or call 911 for re-evaluation in the emergency department if you are very concerned. Pending Studies at Discharge: No Stand-Alone Forms: My [facility], Smoking Cessation Medications and DC Order Prescriptions: New cefuroxime axetil 250 mg tablet 250 mg PO BID 4 Days Qty: 8 0RF Continued aspirin [Adult Low Dose Aspirin] 81 mg tablet,delayed release (DR/EC) 81 mg PO DAILY clopidogrel [Plavix] 75 mg tablet 75 mg PO DAILY Qty: 90 3RF Hold Instructions: Resume on 11/04/24. lidocaine 4 % adhesive patch,medicated 1 patch topical DAILY PRN (Reason: Pain) acetaminophen [Tylenol Extra Strength] 500 mg tablet 1,000 mg PO Q8H metoprolol succinate 100 mg tablet extended release 24 hr 150 mg PO DAILY rosuvastatin 20 mg tablet 20 mg PO DAILY Rx Instructions: to increase to 40mg but hasnt done yet baclofen 10 mg Tablet 10 mg PO BID Qty: 60 2RF magnesium oxide 400 mg (241.3 mg magnesium) Tablet 400 mg PO QAM Qty: 0 0RF Rx Instructions: hold if diarrhea insulin glargine [Lantus U-100 Insulin] 100 unit/mL Solution 5 unit SC DAILY Qty: 0 0RF rosuvastatin 40 mg tablet 40 mg PO DAILY furosemide 20 mg tablet 20 mg PO Q OTHER DAY Neupro 1 mg/24 hour patch 24 hour 1 patch transdermal DAILY Discharge Orders: Discharge Order (Routine); Ordered 02/09/25 Ordered By: Ant Ceballos Admission Data Admit Date/Time: 02/06/25 08:58 Attending Provider: Ant Ceballos Admit Provider: Ant Ceballos Primary Care Provider: Akilah Cook Other Providers: Ashley Magallanes Jonathan R Hospital Stay Data Consultations 02/06/25 06:11 ED Decision to Admit Stat 02/06/25 07:50 ED Decision to Admit Stat Diagnostic Imagining Performed 02/06/25 04:01 CT abd pelvis wo con Stat 02/06/25 08:49 CT angio chest PE protocol Stat US leg [US venous doppler LE RT] Stat Discharge Instructions Given to Patient (Per Discharging Provider) You were seen in the hospital for a complicated urinary tract infection. You were treated with an antibiotic cefepime to cover for certain resistant organisms you have had infections with in the past. Your urine cultures showed a UTI caused by E. coli without additional resistances. You have been discharged to complete 4 additional days on antibiotic called cefuroxime. Please take cefuroxime 250 mg by mouth twice daily for 4 days to complete a course of treatment for UTI. If you develop any new or worsening symptoms including fever, chills, sweats, chest pain, chest pressure, difficulty breathing, uncontrolled nausea/vomiting, rash, wheezing, passing out or nearly passing out, bleeding, black/bloody bowel movements, or other new or concerning symptoms please call your primary care physician, or call 911 for re-evaluation in the emergency department if you are very concerned. Total Time Total Time Spent Total Time Spent (In Minutes): Time spend day of discharge 35 minutes including direct patient care, documentation, review of labs and images, and coordination of care. Coding Level of Care Code 85722 INP/OBS DISCH >30 MIN Diagnoses Acute UTI N39.0 Coronary artery disease I25.10 Hypertension I10 Hypertension type: unspecified Tachycardia R00.0"
[2025-02-09 11:30] VITALS: RESP 13; TEMP 97.7; O2SAT 96
[2025-02-09 12:35] VITALS: BP 117/72; PULSE 90
== END 2025-02-09 13:58 | disposition home or self-care (01) | DRG 872 ==
LOC: ED 03:49 → EDINP 08:58 → 2W 12:40

== ENCOUNTER 2025-05-28 16:32 | Inpatient (IN) ==
[~2025-05-28 16:32] MED LIST: NITROGLYCERIN 2% OINTMENT 30GM TUBE EXT SCH
[2025-05-28 17:33] LABS: Hematocrit (blood only) 38.7 % (37.0-47.0); Hemoglobin 12.5 g/dl (12.0-16.0); Immature Granulocytes # (auto) 0.05 K/uL (0.01-0.20); Immature Granulocytes % (auto) 0.7 %; Mean Corpuscular Hemoglobin 26.4 pg (25.0-34.0); Mean Corpuscular Volume 81.8 fL (80.0-100.0); Platelet Count 295 K/uL (130-400); RDW Standard Deviation 47.1 fL (36.4-46.3); Red Blood Count 4.73 M/uL (4.20-5.40); White Blood Count 7.27 K/ul (4.8-10.8)
--- NOTE | 2025-05-28 17:39 | XRay Report ---
Clinical History: Chest pressure Technique: A frontal view of the chest was obtained Comparison is made to the prior examination dated 10/24/2024 Findings: There are no confluent pulmonary infiltrates. The heart size is within normal limits. No pleural effusion or pneumothorax is seen. There is no definite pulmonary nodule. No fracture is noted. No foreign body is seen Impression: No active disease Electronically signed by Moo Menezes 05-28-2025 5:39 PM
[2025-05-28 18:17] LABS: Alanine Aminotransferase 36 U/L (7-52); Albumin Globulin Ratio 1.1 (0.9-2); Alkaline Phosphatase 113 U/L (34-104); Anion Gap 10 (3-11); Bilirubin,Total 0.4 mg/dl (0.2-1.0); Blood Urea Nitrogen 18 mg/dl (6-23); Calcium 9.5 mg/dl (8.6-10.3); Carbon Dioxide 25 mmol/L (21-32); Chloride 99 mmol/L (98-107); Globulin 3.6 gm/dl (2.5-4.0); Glucose 225 mg/dl (70-99(Fasting)); Potassium 4.3 mmol/L (3.5-5.1); Sodium 134 mmol/L (136-145); Total Protein 7.4 gm/dl (6.0-8.3)
[2025-05-28 18:21] LABS: Partial Thromboplastin Time 27 Seconds (21-31)
--- NOTE | 2025-05-28 18:34 | Emergency Department Note ---
Impression & Plan Non-ST elevation MN (NSTEMI) Admission ED Provider Note HPI: History obtained from patient. The patient is a 69-year-old female who presents the emergency department with chief complaint of high blood pressure. Patient states that she was taking her blood pressure this afternoon and noted that it was elevated. Patient states that she had some mild chest "pressure" earlier today as well that is now resolved. On arrival here to the ED the patient was noted to be hypertensive at 192/109, she is otherwise hemodynamically stable and saturating well on room air. Patient denies any headache, denies any shortness of breath, patient denies any visual changes. ROS: - Per HPI Differential Diagnosis: Hypertensive urgency, hypertensive emergency, aortic dissection, ACS, PE, gastritis/esophagitis, amongst other potential pathologies. *Outpatient medications and allergy history reviewed. 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 Lab work shows no leukocytosis, hemoglobin is normal, platelet count is normal, CMP does not show any evidence of any critical findings. EKG per my review shows sinus rhythm with a rate of 102, no acute ischemic changes are noted. Patient's troponin level did return markedly elevated at 2099. BNP is within normal limits. On my reevaluation following the results of the troponin level, the patient states that she remains chest pain-free. She did have some severe hypertension here in the ED I did obtain CT angiography of the chest that did not show any evidence of any aortic dissection or PE. Patient does have a history of CAD, she was placed on a heparin drip and she was given aspirin here in the ED. She states she is on antiplatelet agents but no anticoagulation. Patient remains chest pain-free and EKG does not show any evidence of ST elevation MN, therefore I do not see an indication for emergent catheterization. Patient was placed for admission to the [facility] hospitalist service under the care of Dr. Nascimento. Patient was in agreement for admission and she was placed for admission in stable condition. Consultants/Discussions held with other healthcare providers: - Hospitalist, Dr. Nascimento Disposition discussion held by myself with: - Patient and patient's at the bedside * CRITICAL CARE TIME: (45) minutes - Stabilization of patient with hypertensive emergency in the setting of elevated troponin/NSTEMI requiring antihypertensive medications to be administered IV and p.o., administration of heparin drip for NSTEMI, time spent at the bedside, interpretation of diagnostic studies including EKG, arrangement of admission. Diagnosis: 1. NSTEMI, acute 2. Hypertensive emergency 3. Chest pain, acute, transient Disposition: Admission Ramirez Bryan DO Emergency Medicine Past Med/Surg History Problem List (Updated 05/28/25 @ 22:22 by Ramirez Bryan DO) Non-ST elevation MN (NSTEMI) (Acute) Multiple sclerosis Proteinuria Ataxia Urinary incontinence Leg weakness Norovirus Paroxysmal atrial flutter Acute on chronic heart failure with preserved ejection fraction (HFpEF) Acute hypercapnic respiratory failure CARLIN (acute kidney injury) Dystonia Cervical myelopathy Demyelinating disease of central nervous system Carotid stenosis, right Elevated lactic acid level (Acute) Elevated troponin (Acute) Seizure-like activity (Acute) Acute UTI (Acute) Tachycardia (Acute) Hypertension (Acute) Altered mental status (Acute) Encephalopathy Septic shock Pyelonephritis Hypotension Elevated troponin Seizure-like activity Lumbar spondylosis Lumbar stenosis with neurogenic claudication Spondylolisthesis, lumbar region Scoliosis of lumbar region due to degenerative disease of spine in adult Left leg weakness Recurrent UTI Sciatica (Acute) Fever (Acute) CHF (congestive heart failure) Acute metabolic encephalopathy Tachycardia Uncontrolled type 2 diabetes mellitus with hyperglycemia Altered mental status Sepsis Lumbar facet joint syndrome Spinal stenosis, lumbar region without neurogenic claudication Hypercholesteremia HTN (hypertension) (Acute) Restless leg Medical History Acute UTI Coronary artery disease Surgical History History of lumbar surgery Social History Smoking Status: Never smoker Tobacco Type: Cigarettes Hx Alcohol Use: No Hx Substance Use: No Preferred Language: Russian Communication Ability: Effective Visual Impairment: Limited Hearing Ability: Hard of Hearing Engineering Associate Required: No Beliefs That Will Affect Care: None marital status: Current Living Situation: Spouse and Family current occupational status: retired Feels Safe at Home: Yes Assistive Devices: Walker and Wheelchair Allergies Allergies Allergy/AdvReac Type Severity Reaction Status Date / Time bee venom protein (honey bee) Allergy Severe DIFFICULTY Verified 05/28/25 18:58 BREATHING/HIVES/ITCHY Home Meds Home Medications Medication Instructions Recorded Confirmed aspirin 81 mg tablet,delayed 81 mg PO DAILY 07/06/20 05/28/25 release (Adult Low Dose Aspirin) lidocaine 4 % topical patch 1 patch topical DAILY PRN Pain 11/18/24 05/28/25 acetaminophen 500 mg tablet 1,000 mg PO Q8H PRN Pain 11/27/24 05/28/25 (Tylenol Extra Strength) metoprolol succinate 100 mg 150 mg PO DAILY 11/27/24 05/28/25 tablet,extended release 24 hr furosemide 20 mg tablet 20 mg PO Q OTHER DAY 02/06/25 05/28/25 rosuvastatin 40 mg tablet 40 mg PO DAILY 02/06/25 05/28/25 rotigotine 1 mg/24 hour 1 patch transdermal DAILY 02/06/25 05/28/25 transdermal 24 hour patch (Neupro) diazepam 5 mg tablet 5 mg PO DIRECTED PRN FOR MRI'S 05/28/25 05/28/25 ONLY Previous Rx's Medication Instructions Recorded clopidogrel 75 mg tablet (Plavix) 75 mg PO DAILY #90 tabs 10/07/24 insulin glargine 100 unit/mL 5 unit (0.05 mL) SC DAILY #0 mL 11/04/24 subcutaneous solution (Lantus U-100 Insulin) magnesium oxide 400 mg (241.3 mg 400 mg PO QAM #0 tabs 11/04/24 magnesium) tablet lisinopril 20 mg tablet 20 mg PO DAILY #90 tabs 03/17/25 baclofen 10 mg tablet 10 mg PO TID #180 tabs 05/26/25 Results & Data (ED) Vital Signs Vital Signs - 24 hr 05/28/25 16:40 05/28/25 18:06 05/28/25 18:45 Temperature 36.9 C Temperature Source Temporal Artery Scan Pulse Rate 103 H 95 H Pulse Rate [Left Finger] 91 H Pulse Rate from SpO2 Sensor 94 H Respiratory Rate 16 20 17 Respiratory Effort / Characteristics Non-Labored Spontaneous Respiratory Depth Normal Blood Pressure 200/97 H 192/100 H Blood Pressure [Left Arm] 192/109 H Blood Pressure Mean 131 154 Blood Pressure Mean [Left Arm] 136 Blood Pressure Position [Left Arm] Sitting Pulse Oximetry 97 96 95 Oxygen Delivery Method Room Air Sepsis Recent Fever Within 48 Hours No Sepsis New/Unexplained Change in Mental Status No Sepsis Action Taken by Nursing No Action Required 05/28/25 18:48 05/28/25 18:49 05/28/25 19:18 Temperature Temperature Source Pulse Rate 96 H 95 H 93 H Pulse Rate [Left Finger] Pulse Rate from SpO2 Sensor Respiratory Rate Respiratory Effort / Characteristics Respiratory Depth Blood Pressure 192/100 H 184/106 H Blood Pressure [Left Arm] Blood Pressure Mean Blood Pressure Mean [Left Arm] Blood Pressure Position [Left Arm] Pulse Oximetry Oxygen Delivery Method Sepsis Recent Fever Within 48 Hours Sepsis New/Unexplained Change in Mental Status Sepsis Action Taken by Nursing Laboratory Data 05/28/25 17:10 05/28/25 17:10 Lab Results 05/28/25 05/28/25 Range/Units 17:10 18:45 WBC 7.27 (4.8-10.8) K/ul RBC 4.73 (4.20-5.40) M/uL Hgb 12.5 (12.0-16.0) g/dl Hct 38.7 (37.0-47.0) % MCV 81.8 (80.0-100.0) fL MCH 26.4 (25.0-34.0) pg MCHC 32.3 (32.0-36.0) g/dL RDW Std Deviation 47.1 H (36.4-46.3) fL RDW Coeff of Marshall 15.7 H (11.5-14.5) % Plt Count 295 (130-400) K/uL MPV 10.0 (9.4-12.4) fL Immature Gran % (Auto) 0.7 % Neut % (Auto) 66.3 % Lymph % (Auto) 22.4 % Colbert % (Auto) 7.3 % Eos % (Auto) 2.6 % Baso % (Auto) 0.7 % Neut # (Auto) 4.82 (1.40-6.50) K/uL Lymph # (Auto) 1.63 (1.20-3.40) K/uL Colbert # (Auto) 0.53 (0.11-0.59) K/uL Eos # (Auto) 0.19 (0.00-0.50) K/uL Baso # (Auto) 0.05 (0.00-0.20) K/uL Immature Gran # (Auto) 0.05 (0.01-0.20) K/uL APTT 27 (21-31) Seconds PTT Ratio 1.0 Sodium 134 L (136-145) mmol/L Potassium 4.3 (3.5-5.1) mmol/L Chloride 99 (98-107) mmol/L Carbon Dioxide 25 (21-32) mmol/L Anion Gap 10 (3-11) BUN 18 (6-23) mg/dl Creatinine 0.98 (0.6-1.2) mg/dl Est Cr Clr Drug Dosing Not Reportable eGFR 63.26 BUN/Creatinine Ratio 18.4 (10-20) Glucose 225 H (70-99(Fasting)) mg/dl Calcium 9.5 (8.6-10.3) mg/dl Total Bilirubin 0.4 (0.2-1.0) mg/dl AST 31 (13-39) U/L ALT 36 (7-52) U/L Alkaline Phosphatase 113 H (34-104) U/L Troponin I High Sens 2099.2 H* (0-14) pg/ml B-Natriuretic Peptide 31 (0-100) pg/ml Total Protein 7.4 (6.0-8.3) gm/dl Albumin 3.8 (3.4-5.0) gm/dl Globulin 3.6 (2.5-4.0) gm/dl Albumin/Globulin Ratio 1.1 (0.9-2) Administered Medications Heparin Sodium/Dextrose (Heparin 56932 Unit/500 Ml D5w) 25,000 units in 500 mls @ 16 mls/hr IV .Q24H OLE; Protocol Stop: 06/27/25 20:59 Last Admin: 05/28/25 21:58 Dose: 800 units/hr, 16 mls/hr Documented By: IVORY Co-signed By: SRIDEVI Discontinued Medications Aspirin (Aspirin Chew 324 Mg) 324 mg PO NOW STA Stop: 05/28/25 19:29 Last Admin: 05/28/25 19:31 Dose: 324 mg Documented By: SRIDEVI Heparin Sodium (Porcine) (Heparin Sod (Porcine) 1000 Unit/Ml) 1 units IV NOW ONE Stop: 05/28/25 20:55 Last Admin: 05/28/25 21:58 Dose: 4,000 units Documented By: IVORY Co-signed By: SRIDEVI Heparin Sodium/Dextrose (Heparin Iv Adult Wt-Based Low-Dose W/ Initial Bolus Protocol) 1 each IV NOW STA; Protocol Stop: 05/28/25 20:40 Last Admin: 05/28/25 21:59 Dose: Not Given Documented By: IVORY Ioversol (Optiray 320 100ml) 90 ml IV ONCE ONE Stop: 05/28/25 20:09 Last Admin: 05/28/25 20:08 Dose: 90 ml Documented By: DIANDRA Labetalol HCl (Labetalol Hcl Iv 5 Mg/Ml 20ml) 10 mg IV NOW STA Stop: 05/28/25 18:33 Last Admin: 05/28/25 18:48 Dose: 10 mg Documented By: KAVYA Nitroglycerin (Nitroglycerin Sl 0.4 Mg/Tab Tab) 0.4 mg SL NOW STA Stop: 05/28/25 19:32 Last Admin: 05/28/25 19:41 Dose: 0.4 mg Documented By: SRIDEVI Imaging Data Radiologist's Impression: Chest X-Ray 05/28/25 16:43 Clinical History: Chest pressure Technique: A frontal view of the chest was obtained Comparison is made to the prior examination dated 10/24/2024 Findings: There are no confluent pulmonary infiltrates. The heart size is within normal limits. No pleural effusion or pneumothorax is seen. There is no definite pulmonary nodule. No fracture is noted. No foreign body is seen Impression: No active disease Electronically signed by Moo Menezes 05-28-2025 5:39 PM Chest CTA 05/28/25 19:28 Exam(s): CTA CHEST IV Amt: 115 ml optiray 320 EXAM: CT Angiography Chest With Intravenous Contrast CLINICAL HISTORY: Reason for exam: PE. TECHNIQUE: Axial computed tomographic angiography images of the chest with intravenous contrast. CTDI is 28 mGy and DLP is 807 mGy-cm. Automated exposure control was utilized for the study. A dose lowering technique was utilized adhering to the principles of ALARA. MIP reconstructed images were created and reviewed. COMPARISON: CT chest on 02/06/2025 FINDINGS: Pulmonary arteries: Unremarkable. No pulmonary embolus identified. Aorta: Atherosclerotic changes of the aorta. No aortic aneurysm or dissection. Lungs: Mild dependent and scattered atelectasis. No focal consolidation. Pleural space: Unremarkable. No significant effusion. No pneumothorax. Heart: Mild cardiomegaly. Coronary artery calcifications. No significant pericardial effusion. No evidence of RV dysfunction. Thyroid: Hypodense nodule in the left thyroid lobe could be further evaluated with ultrasound if clinically indicated. Bones/joints: Degenerative changes of the spine. No acute fracture. No dislocation. Soft tissues: Unremarkable. Lymph nodes: Unremarkable. No enlarged lymph nodes. IMPRESSION: 1. No pulmonary embolus identified. 2. Atherosclerotic changes of the aorta. No aortic aneurysm or dissection. 3. Mild dependent and scattered atelectasis. No focal consolidation. Electronically signed by: Stephanie Lynn M.D. 05/28/25 20:58 PM Discharge Plan Visit Data Chief Complaint: Hypertension Stated Complaint: HIGH BP ED Provider: Ramirez Bryan Discharge Problem: Non-ST elevation MN (NSTEMI) Patient Disposition: Admitted As Inpatient Condition: Fair Forms Stand Alone Forms: [facility] Prescriptions Prescriptions: No Action aspirin [Adult Low Dose Aspirin] 81 mg tablet,delayed release (DR/EC) 81 mg PO DAILY clopidogrel [Plavix] 75 mg tablet 75 mg PO DAILY Qty: 90 3RF Hold Instructions: Resume on 11/04/24. lidocaine 4 % adhesive patch,medicated 1 patch topical DAILY PRN (Reason: Pain) baclofen 10 mg tablet 10 mg PO TID Qty: 180 3RF acetaminophen [Tylenol Extra Strength] 500 mg tablet 1,000 mg PO Q8H PRN (Reason: Pain) metoprolol succinate 100 mg tablet extended release 24 hr 150 mg PO DAILY lisinopril 20 mg tablet 20 mg PO DAILY Qty: 90 3RF magnesium oxide 400 mg (241.3 mg magnesium) Tablet 400 mg PO QAM Qty: 0 0RF Rx Instructions: hold if diarrhea insulin glargine [Lantus U-100 Insulin] 100 unit/mL Solution 5 unit SC DAILY Qty: 0 0RF rosuvastatin 40 mg tablet 40 mg PO DAILY furosemide 20 mg tablet 20 mg PO Q OTHER DAY Neupro 1 mg/24 hour patch 24 hour 1 patch transdermal DAILY diazepam 5 mg tablet 5 mg PO DIRECTED PRN (Reason: FOR MRI'S ONLY) Rx Instructions: 5 mg orally take one tab 30 min priot to MRI, may repeat if needed; Referrals Referrals: Akilah Cook PA-C [Primary Care Provider] -
[2025-05-28] MEDS: LABETALOL HCL IV 5 MG/ML 20ML IV STA (18:48)
[2025-05-28] MEDS: ASPIRIN CHEW 324 MG PO STA (19:31)
[2025-05-28] MEDS: NITROGLYCERIN SL 0.4 MG/TAB TAB SL STA (19:41)
[2025-05-28] MEDS: OPTIRAY 320 100ml IV ONE (20:08)
--- NOTE | 2025-05-28 20:59 | CT Scan Report ---
Exam(s): CTA CHEST IV Amt: 115 ml optiray 320 EXAM: CT Angiography Chest With Intravenous Contrast CLINICAL HISTORY: Reason for exam: PE. TECHNIQUE: Axial computed tomographic angiography images of the chest with intravenous contrast. CTDI is 28 mGy and DLP is 807 mGy-cm. Automated exposure control was utilized for the study. A dose lowering technique was utilized adhering to the principles of ALARA. MIP reconstructed images were created and reviewed. COMPARISON: CT chest on 02/06/2025 FINDINGS: Pulmonary arteries: Unremarkable. No pulmonary embolus identified. Aorta: Atherosclerotic changes of the aorta. No aortic aneurysm or dissection. Lungs: Mild dependent and scattered atelectasis. No focal consolidation. Pleural space: Unremarkable. No significant effusion. No pneumothorax. Heart: Mild cardiomegaly. Coronary artery calcifications. No significant pericardial effusion. No evidence of RV dysfunction. Thyroid: Hypodense nodule in the left thyroid lobe could be further evaluated with ultrasound if clinically indicated. Bones/joints: Degenerative changes of the spine. No acute fracture. No dislocation. Soft tissues: Unremarkable. Lymph nodes: Unremarkable. No enlarged lymph nodes. IMPRESSION: 1. No pulmonary embolus identified. 2. Atherosclerotic changes of the aorta. No aortic aneurysm or dissection. 3. Mild dependent and scattered atelectasis. No focal consolidation. Electronically signed by: Stephanie Lynn M.D. 05/28/25 20:58 PM
[2025-05-28] MEDS: HEPARIN 25000 UNIT/500 ML D5W 25,000 UNITS/500 ML BAG IV SCH (21:58)
[2025-05-28] MEDS: HEPARIN SOD (PORCINE) 1000 UNIT/ML IV ONE (21:58)
[2025-05-28] MEDS: Heparin IV Adult Wt-Based Low-Dose w/ INITIAL Bolus Protocol IV STA (21:59)
--- NOTE | 2025-05-28 22:17 | History & Physical Report ---
Date of Service May 28, 2025 Assessment & Plan (1) Non-ST elevation [place] (NSTEMI): (2) Multiple sclerosis: (3) Hypercholesteremia: (4) Diabetes mellitus: Plan The patient is a 69-year-old female with a past medical history including multiple sclerosis, paroxysmal atrial flutter, acute on chronic HFpEF, cervical myelopathy, hypertension, seizure-like activity, diabetes mellitus, lumbar facet joint syndrome, hypercholesterolemia, hypertension and restless legs. The patient reports that she developed chest pressure sensation around noon today, checked her blood pressure, found it to be elevated, and it remained elevated all afternoon. She presented to the emergency department this evening due to concerns regarding elevated blood pressure, was found to have elevated troponin 2099.2 with nonacute appearing EKG. Blood pressure was found to be 200/97 with heart rate 103, and she was given labetalol 10 mg IV by the ED. She also received aspirin 324mg, nitroglycerin sublingual 0.4 mg, and was started on heparin bolus/drip. [facility]. While in the emergency department she had addition of Nitropaste 1 inch to anterior chest wall. By the time she left the emergency department, she did not have chest pressure or neck symptoms. NSTEMI- The patient will be admitted to telemetry for serial cardiac enzymes, serial EKG's, cardiac rhythm monitoring and a 2-D echocardiogram with Dopplers. Initial troponin 2099.2, with follow-up 5100.5 Status post aspirin 324 mg in the ED, continue 81 mg every morning Continue clopidogrel 75 mg daily, lisinopril 20 mg daily, metoprolol succinate 150 mg daily, mag oxide 400 mg p.o. every morning Continue heparin bolus/drip begun in the ED Lopressor 5 mg IV every 4 hours as needed systolic blood pressure greater than 150 Diabetes mellitus- Glucose 225 on admission Continue glargine 5 units subcu daily Placed on Accu-Cheks with NovoLog SSI Check hemoglobin A1c Hyperlipidemia- Continue rosuvastatin 40 mg daily Check a fasting lipid panel Multiple sclerosis/RLS- Continue baclofen, lidocaine patch, Neupro, and pramipexole History of Present Illness Chief Complaint: The patient reports that she developed chest pressure sensation around noon today, checked her blood pressure, found it to be elevated, and it remained elevated all afternoon. She presented to the emergency department this evening due to concerns regarding elevated blood pressure, was found to have elevated troponin 2099.2 with nonacute appearing EKG. Blood pressure was found to be 200/97 with heart rate 103, and she was given labetalol 10 mg IV by the ED. She also received aspirin 324mg, nitroglycerin sublingual 0.4 mg, and was started on heparin bolus/drip. [facility] Primary Care Provider: Akilah Cook PA-C The patient is a 69-year-old female with a past medical history including multiple sclerosis, paroxysmal atrial flutter, acute on chronic HFpEF, cervical myelopathy, hypertension, seizure-like activity, diabetes mellitus, lumbar facet joint syndrome, hypercholesterolemia, hypertension and restless legs. The patient reports that she developed chest pressure sensation around noon today, that did radiate up toward her neck briefly, checked her blood pressure, found it to be elevated, and it remained elevated all afternoon. She presented to the emergency department this evening due to concerns regarding elevated blood pr essure, was found to have elevated troponin 2099.2 with nonacute appearing EKG. Blood pressure was found to be 200/97 with heart rate 103, and she was given labetalol 10 mg IV by the ED. She also received aspirin 324mg, nitroglycerin sublingual 0.4 mg, and was started on heparin bolus/drip. She was then referred to [facility] service for evaluation for admission. While in the emergency department she had addition of Nitropaste 1 inch to anterior chest wall. Allergies Allergy/AdvReac Type Severity Reaction Status Date / Time bee venom protein (honey bee) Allergy Severe DIFFICULTY Verified 05/28/25 18:58 BREATHING/HIVES/ITCHY Home Medications Medication Instructions Recorded Confirmed Type aspirin 81 mg tablet,delayed 81 mg PO DAILY 07/06/20 05/28/25 History release (Adult Low Dose Aspirin) clopidogrel 75 mg tablet (Plavix) 75 mg PO DAILY #90 tabs 10/07/24 05/28/25 Rx insulin glargine 100 unit/mL 5 unit (0.05 mL) SC DAILY #0 mL 11/04/24 05/28/25 Rx subcutaneous solution (Lantus U-100 Insulin) magnesium oxide 400 mg (241.3 mg 400 mg PO QAM #0 tabs 11/04/24 05/28/25 Rx magnesium) tablet lidocaine 4 % topical patch 1 patch topical DAILY PRN Pain 11/18/24 05/28/25 History acetaminophen 500 mg tablet 1,000 mg PO Q8H PRN Pain 11/27/24 05/28/25 History (Tylenol Extra Strength) metoprolol succinate 100 mg 150 mg PO DAILY 11/27/24 05/28/25 History tablet,extended release 24 hr furosemide 20 mg tablet 20 mg PO Q OTHER DAY 02/06/25 05/28/25 History rosuvastatin 40 mg tablet 40 mg PO DAILY 02/06/25 05/28/25 History rotigotine 1 mg/24 hour 1 patch transdermal DAILY 02/06/25 05/28/25 History transdermal 24 hour patch (Neupro) lisinopril 20 mg tablet 20 mg PO DAILY #90 tabs 03/17/25 05/28/25 Rx baclofen 10 mg tablet 10 mg PO TID #180 tabs 05/26/25 05/28/25 Rx diazepam 5 mg tablet 5 mg PO DIRECTED PRN FOR MRI'S 05/28/25 05/28/25 History ONLY pramipexole 0.25 mg tablet 0.5 mg PO BID 05/28/25 05/28/25 History Past Med/Surg History Problem List (Updated 05/29/25 @ 00:25 by Shade Nascimento MD) Diabetes mellitus Non-ST elevation [place] (NSTEMI) (Acute) Multiple sclerosis Proteinuria Ataxia Urinary incontinence Leg weakness Norovirus Paroxysmal atrial flutter Acute on chronic heart failure with preserved ejection fraction (HFpEF) Acute hypercapnic respiratory failure CARLIN (acute kidney injury) Dystonia Cervical myelopathy Demyelinating disease of central nervous system Carotid stenosis, right Elevated lactic acid level (Acute) Elevated troponin (Acute) Seizure-like activity (Acute) Acute UTI (Acute) Tachycardia (Acute) Hypertension (Acute) Altered mental status (Acute) Encephalopathy Septic shock Pyelonephritis Hypotension Elevated troponin Seizure-like activity Lumbar spondylosis Lumbar stenosis with neurogenic claudication Spondylolisthesis, lumbar region Scoliosis of lumbar region due to degenerative disease of spine in adult Left leg weakness Recurrent UTI Sciatica (Acute) Fever (Acute) CHF (congestive heart failure) Acute metabolic encephalopathy Tachycardia Uncontrolled type 2 diabetes mellitus with hyperglycemia Altered mental status Sepsis Lumbar facet joint syndrome Spinal stenosis, lumbar region without neurogenic claudication Hypercholesteremia HTN (hypertension) (Acute) Restless leg Medical History Acute UTI Coronary artery disease Surgical History History of lumbar surgery Social History Smoking Status: Never smoker Tobacco Type: Cigarettes Hx Alcohol Use: No Hx Substance Use: No Preferred Language: Syriac Communication Ability: Effective Visual Impairment: Limited Hearing Ability: Hard of Hearing Glove Maker Required: No Beliefs That Will Affect Care: None marital status: Current Living Situation: Spouse and Family current occupational status: retired Feels Safe at Home: Yes Assistive Devices: Walker and Wheelchair Review of Systems Review of Systems: The patient denies palpitations, cough, lower extremity swelling, sore throat, fevers, chills, sweats, nausea, vomiting, diarrhea , constipation, abdominal lindsey n, pelvic pain, blood in urine or stool, dysuria, urinary frequency or urgency, lightheadedness, dizziness, headache, memory loss, loss of consciousness, rash, abnormal bruising or bleeding, imbalance, focal weakness, numbness or tingling in arms or legs, generalized arthralgias or myalgias, or night sweats. The review of systems is otherwise negative other than for that already noted above, and at least 10 systems have been reviewed. Physical Exam Physical Exam: The patient is awake, alert and oriented 3, well developed and well nourished, normocephalic and atraumatic, lying in bed and in no acute distress. HEENT--PERRL, EOMI, mucous membranes and oropharynx normal. Neck--supple. No JVD. No bruits. Thyroid normal, trachea midline, no adenopathy. Heart--normal S1 and S2. No murmurs, rubs or gallops. Lungs--clear bilaterally, no respiratory distress, no accessory muscle use. Abdomen--normal bowel sounds and soft. Nontender. Nondistended, no hernias or masses, no organomegaly. Extremities--no cyanosis or clubbing. No edema. There are good distal pulses b/l. Dermatologic--normal skin turgor, normal color, no abnormal lymph nodes, no rash. Neurologic--cranial nerves II through XII grossly intact. Rheumatologic--normal range of motion. Psychiatric--normal affect. Results & Data Results & Data Vital Signs (Past 12 Hours) Vital Signs Temp Pulse Pulse Resp BP BP Pulse Ox 05/28/25 19:18 93 H 184/106 H 05/28/25 18:49 95 H 05/28/25 18:48 96 H 192/100 H 05/28/25 18:45 95 H 17 192/100 H 95 05/28/25 18:06 91 H 20 192/109 H 96 05/28/25 16:40 36.9 C 103 H 16 200/97 H 97 O2 Del Method 05/28/25 19:18 05/28/25 18:49 05/28/25 18:48 05/28/25 18:45 05/28/25 18:06 05/28/25 16:40 Room Air Laboratory Results Laboratory Results WBC 7.27 K/ul (4.8-10.8) 05/28/25 17:10 RBC 4.73 M/uL (4.20-5.40) 05/28/25 17:10 Hgb 12.5 g/dl (12.0-16.0) 05/28/25 17:10 Hct 38.7 % (37.0-47.0) 05/28/25 17:10 MCV 81.8 fL (80.0-100.0) 05/28/25 17:10 MCH 26.4 pg (25.0-34.0) 05/28/25 17:10 MCHC 32.3 g/dL (32.0-36.0) 05/28/25 17:10 RDW Std Deviation 47.1 fL (36.4-46.3) H 05/28/25 17:10 RDW Coeff of Marshall 15.7 % (11.5-14.5) H 05/28/25 17:10 Plt Count 295 K/uL (130-400) 05/28/25 17:10 MPV 10.0 fL (9.4-12.4) 05/28/25 17:10 Immature Gran % (Auto) 0.7 % 05/28/25 17:10 Neut % (Auto) 66.3 % 05/28/25 17:10 Lymph % (Auto) 22.4 % 05/28/25 17:10 Burt % (Auto) 7.3 % 05/28/25 17:10 Eos % (Auto) 2.6 % 05/28/25 17:10 Baso % (Auto) 0.7 % 05/28/25 17:10 Neut # (Auto) 4.82 K/uL (1.40-6.50) 05/28/25 17:10 Lymph # (Auto) 1.63 K/uL (1.20-3.40) 05/28/25 17:10 Burt # (Auto) 0.53 K/uL (0.11-0.59) 05/28/25 17:10 Eos # (Auto) 0.19 K/uL (0.00-0.50) 05/28/25 17:10 Baso # (Auto) 0.05 K/uL (0.00-0.20) 05/28/25 17:10 Immature Gran # (Auto) 0.05 K/uL (0.01-0.20) 05/28/25 17:10 APTT 27 Seconds (21-31) 05/28/25 17:10 PTT Ratio 1.0 05/28/25 17:10 Sodium 134 mmol/L (136-145) L 05/28/25 17:10 Potassium 4.3 mmol/L (3.5-5.1) 05/28/25 17:10 Chloride 99 mmol/L (98-107) 05/28/25 17:10 Carbon Dioxide 25 mmol/L (21-32) 05/28/25 17:10 Anion Gap 10 (3-11) 05/28/25 17:10 BUN 18 mg/dl (6-23) 05/28/25 17:10 Creatinine 0.98 mg/dl (0.6-1.2) 05/28/25 17:10 Est Cr Clr Drug Dosing Not Reportable 05/28/25 17:10 eGFR 63.26 05/28/25 17:10 BUN/Creatinine Ratio 18.4 (10-20) 05/28/25 17:10 Glucose 225 mg/dl (70-99(Fasting)) H 05/28/25 17:10 Calcium 9.5 mg/dl (8.6-10.3) 05/28/25 17:10 Total Bilirubin 0.4 mg/dl (0.2-1.0) 05/28/25 17:10 AST 31 U/L (13-39) 05/28/25 17:10 ALT 36 U/L (7-52) 05/28/25 17:10 Alkaline Phosphatase 113 U/L (34-104) H 05/28/25 17:10 Troponin I High Sens 5100.5 pg/ml (0-14) H* D 05/28/25 22:32 B-Natriuretic Peptide 31 pg/ml (0-100) 05/28/25 17:10 Total Protein 7.4 gm/dl (6.0-8.3) 05/28/25 17:10 Albumin 3.8 gm/dl (3.4-5.0) 05/28/25 17:10 Globulin 3.6 gm/dl (2.5-4.0) 05/28/25 17:10 Albumin/Globulin Ratio 1.1 (0.9-2) 05/28/25 17:10 Impressions Chest X-Ray 05/28/25 16:43 Clinical History: Chest pressure Technique: A frontal view of the chest was obtained Comparison is made to the prior examination dated 10/24/2024 Findings: There are no confluent pulmonary infiltrates. The heart size is within normal limits. No pleural effusion or pneumothorax is seen. There is no definite pulmonary nodule. No fracture is noted. No foreign body is seen Impression: No active disease Electronically signed by Moo Menezes 05-28-2025 5:39 PM Chest CTA 05/28/25 19:28 Exam(s): CTA CHEST IV Amt: 115 ml optiray 320 EXAM: CT Angiography Chest With Intravenous Contrast CLINICAL HISTORY: Reason for exam: PE. TECHNIQUE: Axial computed tomographic angiography images of the chest with intravenous contrast. CTDI is 28 mGy and DLP is 807 mGy-cm. Automated exposure control was utilized for the study. A dose lowering technique was utilized adhering to the principles of ALARA. MIP reconstructed images were created and reviewed. COMPARISON: CT chest on 02/06/2025 FINDINGS: Pulmonary arteries: Unremarkable. No pulmonary embolus identified. Aorta: Atherosclerotic changes of the aorta. No aortic aneurysm or dissection. Lungs: Mild dependent and scattered atelectasis. No focal consolidation. Pleural space: Unremarkable. No significant effusion. No pneumothorax. Heart: Mild cardiomegaly. Coronary artery calcifications. No significant pericardial effusion. No evidence of RV dysfunction. Thyroid: Hypodense nodule in the left thyroid lobe could be further evaluated with ultrasound if clinically indicated. Bones/joints: Degenerative changes of the spine. No acute fracture. No dislocation. Soft tissues: Unremarkable. Lymph nodes: Unremarkable. No enlarged lymph nodes. IMPRESSION: 1. No pulmonary embolus identified. 2. Atherosclerotic changes of the aorta. No aortic aneurysm or dissection. 3. Mild dependent and scattered atelectasis. No focal consolidation. Electronically signed by: Stephanie Lynn M.D. 05/28/25 20:58 PM Code Status & VTE Plan Code Status Full code VTE Prophylaxis Plan VTE Prophylaxis will be ordered: Yes PG Care Time/CCT Total # of Minutes Spent Total Time Spent with Patient: Total time spent is greater than 50% in coordination of care (as documented) at patient's floor/unit and/or counseling patient: Coding Level of Care Code 69289 INT INP/OBS CARE 3/75MIN Diagnoses Non-ST elevation [place] (NSTEMI) I21.4 Multiple sclerosis G35 Hypercholesteremia E78.00 Diabetes mellitus E11.9
[2025-05-29] MEDS ORDERED: GLUCAGON FOR INJ 1 MG VIAL SQ PRN (00:02)
[2025-05-29] MEDS ORDERED: DEXTROSE 50% 50 ML SYRINGE IV PRN (00:02)
[2025-05-29] MEDS ORDERED: GLUCOSE 10 TAB/TUBE PO PRN (00:02)
[2025-05-29] MEDS ORDERED: GLUCOSE 40% GEL 15 GM TUBE PO PRN (00:02)
[2025-05-29] MEDS ORDERED: NITROGLYCERIN SL 0.4 MG/TAB TAB SL PRN (00:02)
[2025-05-29] MEDS ORDERED: CARBOHYDRATES FOR HYPOGLYCEMIA PO PRN (00:02)
[2025-05-29] MEDS ORDERED: LIDOCAINE 5% 1 PATCH TD PRN (00:19)
[2025-05-29] MEDS: NITROGLYCERIN 2% OINTMENT 30GM TUBE EXT ONE (00:40)
[2025-05-29] MEDS: PRAMIPEXOLE DIHYDROCHLO 0.5 MG TAB PO SCH (00:57)
[2025-05-29] MEDS: INSULIN ASPART PER UNIT CHARGE SC SCH (01:26)
[2025-05-29 01:45] LABS: Appearance Urine Cloudy (Clear); Glucose Urine UA Negative (Negative)
[2025-05-29 01:53] LABS: Epithelial Cell Urine 0-2 /hpf (0-2)
[2025-05-29] MEDS ORDERED: Nursing to Pharmacy Communication SCH (02:00)
[2025-05-29] MEDS: PRAMIPEXOLE DIHYDROCHLO 0.25 MG TAB PO SCH (02:16)
[2025-05-29] MEDS: ACETAMINOPHEN 500 MG TAB PO PRN (02:31)
--- NOTE | 2025-05-29 02:45 | CT Scan Report ---
EXAM: CT abd pelvis wo con CLINICAL HISTORY: gross hematuria TECHNIQUE: Contiguous axial images were obtained from the level of the diaphragm to the pubic symphysis without intravenous or oral contrast. Coronal and sagittal reconstructions were likewise performed and indicated to increase the sensitivity for detecting clinically relevant pathology. CT scan was performed according to ALARA (as low as reasonable achievable). 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 FINDINGS: Few atelectatic bands are noted involving bilateral lung bases.-stable. Evaluation of the abdominal and pelvic visceral organs is limited without intravenous contrast. The unenhanced liver, spleen, pancreas, and adrenal glands are grossly unremarkable. The gallbladder is present. The kidneys are normal in size and attenuation without obvious calcification. There is no hydronephrosis. Mild bilateral perinephric fat stranding The ureters are normal in caliber. The bladder shows diffuse wall thickening with subtle perivesical fat stranding - suggest possibility of cystitis- urine analysis correlation suggested Uterus appears dysmorphic and shows multiple exophytic lesion - possibility of uterine fibroid- USG correlation is suggested.-stable. No adenopathy or fluid collections are seen. No evidence of focal or diffuse bowel wall thickening or evidence of bowel obstruction is seen. The appendix is visualized in the right lower quadrant and appears within normal limits. The aorta is normal in caliber. No aggressive appearing osseous lesions are identified. Few atelectatic bands are noted involving bilateral lung bases. IMPRESSION: 1. Hepatic steatosis. -stable. 2. Mild bilateral perinephric fat stranding -reduced. 3. The bladder shows diffuse wall thickening with subtle perivesical fat stranding - suggest possibility of cystitis- urine analysis correlation suggested-reduced. 4. Uterus appears dysmorphic and shows multiple exophytic lesion - possibility of uterine fibroid- USG correlation is suggested.-stable. Electronically signed by Piter Muller 05-29-2025 02:45 AM
[2025-05-29 05:15] LABS: Hematocrit (blood only) 34.9 % (37.0-47.0); Hemoglobin 11.5 g/dl (12.0-16.0); Immature Granulocytes # (auto) 0.03 K/uL (0.01-0.20); Immature Granulocytes % (auto) 0.3 %; Mean Corpuscular Hemoglobin 26.7 pg (25.0-34.0); Mean Corpuscular Volume 81.0 fL (80.0-100.0); Platelet Count 283 K/uL (130-400); RDW Standard Deviation 46.7 fL (36.4-46.3); Red Blood Count 4.31 M/uL (4.20-5.40); White Blood Count 8.97 K/ul (4.8-10.8)
[2025-05-29 05:34] LABS: Alanine Aminotransferase 28 U/L (7-52); Alkaline Phosphatase 66 U/L (34-104); Anion Gap 12 (3-11); Bilirubin,Total 0.4 mg/dl (0.2-1.0); Blood Urea Nitrogen 15 mg/dl (6-23); Calcium 9.3 mg/dl (8.6-10.3); Carbon Dioxide 24 mmol/L (21-32); Chloride 102 mmol/L (98-107); Cholesterol 320 mg/dl (0-200); Creatinine Clr Calc Pharmacy 65.0 ml/min; Glucose 133 mg/dl (70-99(Fasting)); HDL Cholesterol 33 mg/dl; Magnesium 1.6 mg/dl (1.7-2.4); Potassium 3.8 mmol/L (3.5-5.1); Sodium 138 mmol/L (136-145); Total Protein 6.4 gm/dl (6.0-8.3); Triglycerides 574 mg/dl (0-150)
[2025-05-29 05:35] LABS: ANTI-Xa, UFH(UnfractionatedHep 0.22 IU/ml (0.3-0.7)
[2025-05-29 05:36] LABS: Albumin Globulin Ratio 1.1 (0.9-2); Globulin 3.0 gm/dl (2.5-4.0)
[2025-05-29 05:40] LABS: INR 1.1 (0.9-1.1); Partial Thromboplastin Time 33 Seconds (21-31); Prothrombin Time 11.5 Seconds (9.0-12.0)
[2025-05-29] MEDS: NITROGLYCERIN 2% OINTMENT 30GM TUBE EXT SCH (06:44)
--- NOTE | 2025-05-29 07:19 | Hospitalist Progress Note ---
Date of Service May 29, 2025 Assessment & Plan (1) Gross hematuria: (2) Type [address] elevation: Plan In summary this is a 69-year-old female who presented initially with centralized chest discomfort concerning for an acute coronary syndrome complicated by gross hematuria that has been progressive With respect to the patient's myocardial infarctionHer symptoms initially began midday on 05/28 and were persistent; there is no specific association with activity; the patient's previous myocardial infarction's have had similar symptoms; patient has numerous risk factors and established comorbidities increasing her risk for recurrent ACS; the patient's initial EKG did not reveal any concerning findings for acute ischemic injury; the patient's initial troponin was 2099 with subsequent measures of 5100; MICHELE score 121 -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 Anders is a 69-year-old female whose active medical conditions include type 2 diabetes mellitus with multiple complications, paroxysmal atrial flutter with chronic heart failure with preserved ejection fraction, among many other chronic medical conditions who [facility] 05[facility]28 due to centralized chest pressure that was unrelenting. Overnight there were no acute events; the patient is anticipated undergo multiple diagnostic tests today including a possible left heart catheterization. The chest pain has been persistent throughout the night though not progressive. They have also noted persistent hematuria with placement of Chi catheter, they have been dealing with intermittent hematuria in the outpatient setting without further diagnostic workup pursued at this time. They deny any additional genitourinary symptoms. Review of Systems Review of Systems: Review of cardiovascular, pulmonary, gastrointestinal, genitourinary, constitutional systems was unremarkable Physical Exam Physical Exam: General: Adult female in no acute distress Vital Signs: Reviewed HEENT: Extraocular motion intact; mucous membranes moist; pupils equally round reactive to light Neck: No appreciable JVD at rest; hepatojugular reflux is present Pulmonary: Symmetric chest wall excursion that is restricted, secondary to body habitus; otherwise lungs are clear to auscultation bilaterally Cardiovascular: Regular rate and rhythm without murmurs, rubs, or gallops; bilateral radial and posterior tibial pulse 2+ with 1+ pitting edema distal to the knees bilaterally Genitourinary: Chi catheter in place with frankly bloody urine without clear sediment, nor clot formation Neurologic: CN II-XII grossly intact; no discernible focal weakness nor paresthesias Results & Data Results & Data Vital Signs (Past 12 Hours) Vital Signs Temp Pulse Pulse Resp BP BP Pulse Ox 05/29/25 06:00 128/74 05/29/25 05:00 128/71 05/29/25 04:00 36.6 C 92 H 16 127/64 93 05/29/25 03:43 87 18 129/65 93 05/29/25 02:00 87 19 145/73 H 93 05/29/25 01:43 158/81 H 05/29/25 01:01 86 14 143/82 H 95 05/29/25 00:30 36.8 C 05/29/25 00:18 91 H 14 176/94 H 94 05/29/25 00:00 95 H 05/28/25 22:45 87 18 99 05/28/25 22:00 84 18 166/91 H 97 05/28/25 20:00 87 18 154/92 H 97 O2 Del Method 05/29/25 06:00 05/29/25 05:00 05/29/25 04:00 Room Air 05/29/25 03:43 Room Air 05/29/25 02:00 Room Air 05/29/25 01:43 05/29/25 01:01 Room Air 05/29/25 00:30 05/29/25 00:18 Room Air 05/29/25 00:00 05/28/25 22:45 Room Air 05/28/25 22:00 Room Air 05/28/25 20:00 Room Air PG Care Time/CCT Total # of Minutes Spent Total Time Spent with Patient: Total time spent is greater than 50% in coordination of care (as documented) at patient's floor/unit and/or counseling patient: Coding Level of Care Code 59787 SUB INP/OBS CARE 2/35MIN Diagnoses Gross hematuria R31.0 Type [address] elevation I21.4
--- NOTE | 2025-05-29 07:27 | Cardiology Consultation ---
Date of Consultation May 29, 2025 Assessment & Plan (1) Non-ST elevation AR (NSTEMI): (2) HTN (hypertension): (3) Hypercholesteremia: (4) Chronic heart failure with preserved ejection fraction: (5) Coronary artery disease: (6) S/P coronary artery stent placement: Plan ASSESSMENT/PLAN: 1. NSTEMI: Presented with rest angina with known multivessel CAD. Chest pain- free currently. Recommend coronary angiography. Risks and benefits discussed with her in detail and she is agreeable to proceed. She was made aware that CT surgery is not available at this facility. Can continue heparin drip if no contraindication with current hematuria. She otherwise uses dual antiplatelet therapy in the outpatient setting. Cardiac rehab. Continue outpatient beta- silviano and TAD inhibitor. Echo report is pending however on preliminary review, normal LV systolic function. Continue high intensity statin therapy. 2. CAD s/p prior LAD, RCA, PLB PCI: Continue medical therapy as outlined above. Cardiac catheterization today. 3. Hypertension: Blood pressure was severely elevated on presentation and has since improved and has been normotensive for much of the morning. Nitroglycerin paste in place. Continue outpatient therapy. Adjustments can be made as appropriate. 4. Dyslipidemia: Continue high intensity statin therapy. Triglycerides quite elevated. Recommend more aggressive treatment. Will order direct LDL. 5. Hematuria: Occurred once placed on heparin. As per urology and primary hospitalist service. 6. Chronic heart failure with preserved EF: She does not appear to be significantly hypervolemic and uses Lasix 20 mg every other day in the outpatie nt setting. No SGLT2 inhibitor given chronic UTI issues. 7. Paroxysmal atrial flutter: Noted in her records but details unclear at the time of this consultation. Can continue to follow-up with her primary hotel operations manager for treatment as needed. She is not chronically on anticoagulation therapy, but once again details not known in regards to this diagnosis. 8. Disposition: Cardiology will continue to follow. Plan of care communicated with Dr. Naylor of the primary hospitalist service. Follow-up with Dr. Garcia, her primary hotel operations manager, in the outpatient setting. Highly complex medical issues. Thank you for allowing me to participate in the care of your patient. Please call for any other questions or concerns. Sincerely, Sony Lawler M.D. History of Present Illness Reason for Consultation: NSTEMI Requesting Physician: Dr. Nascimento Attending Physician: Kwesi Naylor DO History of Present Illness Mrs. Anders is a very pleasant 69-year-old female with history significant for multivessel CAD s/p PCI (LAD, RCA, PLB), type 2 diabetes, hypertension, dyslipidemia, multiple sclerosis. Records also indicate a history of paroxysmal atrial flutter, however details not clear at the time of this note. Her primary hotel operations manager is Dr. Garcia. She has had the following studies/procedures: 1. Cardiac catheterization summary (2017) OSH: Proximal 30% in-stent restenosis, mid patent stent, mid to distal patent stent. Small D1 with 60-70% stenosis. Dominant RCA. Proximal stent patent. Mid RCA 90% (PCI with 2.75 x 28 mm drug-eluting stent), posterolateral branch stent patent, PDA patent. 2. Echocardiogram 10/23/2024: EF remained 60 to 65%, mild LVH. No segmental wall motion abnormalities No change compared to prior echo. She was hospitalized on 05/28/2025 with substernal chest discomfort and elevated troponins with initial high-sensitivity troponin of 2099, trending upward to 5255. She was also significantly hypertensive with presenting blood pressure 200/97 mmHg. She admits that the substernal chest pressure radiated to her left shoulder on 05/28/2025. There was associated diaphoresis but no shortness of breath. She woke up with this pain at approximately noon on 05/28/2025 and it was constant for hours. It resolved with nitroglycerin at [facility]. She admits that she has had "indigestion" symptoms over the past 1 to 2 weeks after eating, completely different than her presenting chest pressure. When she was seen this morning in room 109, she was chest pain-free. She admits that she has had recent increase in her lower extremity edema and has chronically been taking Lasix every other day. She had an episode of hematuria a few weeks ago on 1 occasion but it since resolved. She developed hematuria here after heparin drip was initiated. She states that she is incontinent since diagnosed with multiple sclerosis and has chronic UTI issues. She denies nausea, vomiting, syncope, near syncope, palpitations, fevers, grace bernard, or hematochezia. She ambulates with the assistance of a walker and otherwise uses a wheelchair. Review of systems: As above. Family history: Mother had CAD. Social history: She quit smoking over 20 years ago. Denies alcohol or drug abuse. Lives at home with her , daughter, and 3 grandchildren. She has a son who lives locally as well. She was unaccompanied. Allergies Allergy/AdvReac Type Severity Reaction Status Date / Time bee venom protein (honey bee) Allergy Severe DIFFICULTY Verified 05/28/25 18:58 BREATHING/HIVES/ITCHY Home Medications Medication Instructions Recorded Confirmed Type aspirin 81 mg tablet,delayed 81 mg PO DAILY 07/06/20 05/28/25 History release (Adult Low Dose Aspirin) clopidogrel 75 mg tablet (Plavix) 75 mg PO DAILY #90 tabs 10/07/24 05/28/25 Rx insulin glargine 100 unit/mL 5 unit (0.05 mL) SC DAILY #0 mL 11/04/24 05/28/25 Rx subcutaneous solution (Lantus U-100 Insulin) magnesium oxide 400 mg (241.3 mg 400 mg PO QAM #0 tabs 11/04/24 05/28/25 Rx magnesium) tablet lidocaine 4 % topical patch 1 patch topical DAILY PRN Pain 11/18/24 05/28/25 History acetaminophen 500 mg tablet 1,000 mg PO Q8H PRN Pain 11/27/24 05/28/25 History (Tylenol Extra Strength) metoprolol succinate 100 mg 150 mg PO DAILY 11/27/24 05/28/25 History tablet,extended release 24 hr furosemide 20 mg tablet 20 mg PO Q OTHER DAY 02/06/25 05/28/25 History rosuvastatin 40 mg tablet 40 mg PO DAILY 02/06/25 05/28/25 History rotigotine 1 mg/24 hour 1 patch transdermal DAILY 02/06/25 05/28/25 History transdermal 24 hour patch (Neupro) lisinopril 20 mg tablet 20 mg PO DAILY #90 tabs 03/17/25 05/28/25 Rx baclofen 10 mg tablet 10 mg PO TID #180 tabs 05/26/25 05/28/25 Rx diazepam 5 mg tablet 5 mg PO DIRECTED PRN FOR MRI'S 05/28/25 05/28/25 History ONLY pramipexole 0.25 mg tablet 0.5 mg PO BID 05/28/25 05/28/25 History Problem List (Updated 05/29/25 @ 10:27 by Arsalan Lawler MD) S/P coronary artery stent placement Chronic heart failure with preserved ejection fraction Gross hematuria Diabetes mellitus Non-ST elevation AR (NSTEMI) (Acute) Multiple sclerosis Proteinuria Ataxia Urinary incontinence Leg weakness Norovirus Paroxysmal atrial flutter Acute on chronic heart failure with preserved ejection fraction (HFpEF) Acute hypercapnic respiratory failure CARLIN (acute kidney injury) Dystonia Cervical myelopathy Demyelinating disease of central nervous system Carotid stenosis, right Elevated lactic acid level (Acute) Elevated troponin (Acute) Seizure-like activity (Acute) Acute UTI (Acute) Tachycardia (Acute) Hypertension (Acute) Altered mental status (Acute) Encephalopathy Septic shock Pyelonephritis Hypotension Elevated troponin Seizure-like activity Lumbar spondylosis Lumbar stenosis with neurogenic claudication Spondylolisthesis, lumbar region Scoliosis of lumbar region due to degenerative disease of spine in adult Left leg weakness Recurrent UTI Sciatica (Acute) Fever (Acute) CHF (congestive heart failure) Acute metabolic encephalopathy Tachycardia Uncontrolled type 2 diabetes mellitus with hyperglycemia Altered mental status Sepsis Lumbar facet joint syndrome Spinal stenosis, lumbar region without neurogenic claudication Hypercholesteremia HTN (hypertension) (Acute) Restless leg Patient History Medical History Acute UTI Coronary artery disease Surgical History History of lumbar surgery Social History Smoking Status: Former smoker Tobacco Type: Cigarettes Do You Dip or Chew Tobacco: No; Tobacco Cessation Education Requested by Patient: No Hx Alcohol Use: No Hx Substance Use: No Preferred Language: British Communication Ability: Effective Visual Impairment: Limited Hearing Ability: Hard of Hearing Media Clerk Required: No Beliefs That Will Affect Care: None marital status: Current Living Situation: Spouse and Family Current Living Situation Comment: household: pt, , pt's daughter, 3 grandchildren current occupational status: retired Feels Safe at Home: Yes Safety Concerns: Feels Safe At This Time Assistive Devices: Glasses, Walker and Wheelchair Physical Exam Physical Exam: Gen.: No acute distress. Alert and oriented. HEENT: Anicteric sclera. Neck: No JVD. No bruits. Normal carotid upstrokes bilaterally. Cardiac: Regular. Normal S1-S2. No murmurs, rubs, or gallops. Pulmonary: Clear to auscultation bilaterally without wheezes, rales, or rhonchi. Abdomen: Soft, nontender, nondistended, with normoactive bowel sounds. No bruits noted. Extremities: Right radial pulse nonpalpable. 2+ left radial pulse. 2+ posterior tibialis pulses bilaterally. Trace bilateral lower extremity edema. No c yanosis. Psychiatric: Affect appears appropriate. Results & Data Vital Signs (Past 12 Hours) Vital Signs Temp Pulse Pulse Resp BP BP Pulse Ox 05/29/25 06:00 128/74 05/29/25 05:00 128/71 05/29/25 04:00 36.6 C 92 H 16 127/64 93 05/29/25 03:43 87 18 129/65 93 05/29/25 02:00 87 19 145/73 H 93 05/29/25 01:43 158/81 H 05/29/25 01:01 86 14 143/82 H 95 05/29/25 00:30 36.8 C 05/29/25 00:18 91 H 14 176/94 H 94 05/29/25 00:00 95 H 05/28/25 22:45 87 18 99 05/28/25 22:00 84 18 166/91 H 97 05/28/25 20:00 87 18 154/92 H 97 O2 Del Method 05/29/25 06:00 05/29/25 05:00 05/29/25 04:00 Room Air 05/29/25 03:43 Room Air 05/29/25 02:00 Room Air 05/29/25 01:43 05/29/25 01:01 Room Air 05/29/25 00:30 05/29/25 00:18 Room Air 05/29/25 00:00 05/28/25 22:45 Room Air 05/28/25 22:00 Room Air 05/28/25 20:00 Room Air Laboratory Results Laboratory Results - last 24 hr 05/28/25 05/28/25 05/28/25 17:10 18:45 22:32 WBC 7.27 RBC 4.73 Hgb 12.5 Hct 38.7 MCV 81.8 MCH 26.4 MCHC 32.3 RDW Std Deviation 47.1 H RDW Coeff of Marshall 15.7 H Plt Count 295 MPV 10.0 Immature Gran % (Auto) 0.7 Neut % (Auto) 66.3 Lymph % (Auto) 22.4 Cook % (Auto) 7.3 Eos % (Auto) 2.6 Baso % (Auto) 0.7 Neut # (Auto) 4.82 Lymph # (Auto) 1.63 Cook # (Auto) 0.53 Eos # (Auto) 0.19 Baso # (Auto) 0.05 Immature Gran # (Auto) 0.05 PT INR APTT 27 PTT Ratio 1.0 Heparin Anti-Xa, Unfract Sodium 134 L Potassium 4.3 Chloride 99 Carbon Dioxide 25 Anion Gap 10 BUN 18 Creatinine 0.98 Est Cr Clr Drug Dosing Not Reportable eGFR 63.26 BUN/Creatinine Ratio 18.4 Glucose 225 H POC Glucose Estimat Average Glucose Hemoglobin A1c Calcium 9.5 Magnesium Total Bilirubin 0.4 AST 31 ALT 36 Alkaline Phosphatase 113 H Troponin I High Sens 2099.2 H* 5100.5 H* D B-Natriuretic Peptide 31 Total Protein 7.4 Albumin 3.8 Globulin 3.6 Albumin/Globulin Ratio 1.1 Triglycerides Cholesterol LDL Cholesterol, Calc VLDL Cholesterol, Calc HDL Cholesterol Cholesterol/HDL Ratio Urine Color Urine Appearance Urine pH Ur Specific [place] Urine Protein Urine Glucose (UA) Urine Ketones Urine Blood Urine Nitrite Urine Bilirubin Urine Urobilinogen Ur Leukocyte Esterase Urine RBC Urine WBC Ur Epithelial Cells Urine Bacteria Urine Comment Nasal Screen MRSA (PCR) 05/29/25 05/29/25 05/29/25 00:11 00:20 01:20 WBC RBC Hgb Hct MCV MCH MCHC RDW Std Deviation RDW Coeff of Marshall Plt Count MPV Immature Gran % (Auto) Neut % (Auto) Lymph % (Auto) Cook % (Auto) Eos % (Auto) Baso % (Auto) Neut # (Auto) Lymph # (Auto) Cook # (Auto) Eos # (Auto) Baso # (Auto) Immature Gran # (Auto) PT INR APTT PTT Ratio Heparin Anti-Xa, Unfract Sodium Potassium Chloride Carbon Dioxide Anion Gap BUN Creatinine Est Cr Clr Drug Dosing eGFR BUN/Creatinine Ratio Glucose POC Glucose 142 H Estimat Average Glucose Hemoglobin A1c Calcium Magnesium Total Bilirubin AST ALT Alkaline Phosphatase Troponin I High Sens 4933.3 H* B-Natriuretic Peptide Total Protein Albumin Globulin Albumin/Globulin Ratio Triglycerides Cholesterol LDL Cholesterol, Calc VLDL Cholesterol, Calc HDL Cholesterol Cholesterol/HDL Ratio Urine Color Urine Appearance Urine pH Ur Specific [place] Urine Protein Urine Glucose (UA) Urine Ketones Urine Blood Urine Nitrite Urine Bilirubin Urine Urobilinogen Ur Leukocyte Esterase Urine RBC Urine WBC Ur Epithelial Cells Urine Bacteria Urine Comment Nasal Screen MRSA (PCR) Negative 05/29/25 05/29/25 01:27 03:55 WBC 8.97 RBC 4.31 Hgb 11.5 L Hct 34.9 L MCV 81.0 MCH 26.7 MCHC 33.0 RDW Std Deviation 46.7 H RDW Coeff of Marshall 15.8 H Plt Count 283 MPV 10.2 Immature Gran % (Auto) 0.3 Neut % (Auto) 55.8 Lymph % (Auto) 33.1 Cook % (Auto) 7.8 Eos % (Auto) 2.2 Baso % (Auto) 0.8 Neut # (Auto) 5.00 Lymph # (Auto) 2.97 Cook # (Auto) 0.70 H Eos # (Auto) 0.20 Baso # (Auto) 0.07 Immature Gran # (Auto) 0.03 PT 11.5 INR 1.1 APTT 33 H PTT Ratio 1.2 Heparin Anti-Xa, Unfract 0.22 L Sodium 138 Potassium 3.8 Chloride 102 Carbon Dioxide 24 Anion Gap 12 H BUN 15 Creatinine 0.88 Est Cr Clr Drug Dosing 65.0 eGFR 71.98 BUN/Creatinine Ratio 17.0 Glucose 133 H POC Glucose Estimat Average Glucose Pending Hemoglobin A1c Pending Calcium 9.3 Magnesium 1.6 L Total Bilirubin 0.4 AST 30 ALT 28 Alkaline Phosphatase 66 Troponin I High Sens 5255.5 H* B-Natriuretic Peptide Total Protein 6.4 Albumin 3.4 Globulin 3.0 Albumin/Globulin Ratio 1.1 Triglycerides 574 H Cholesterol 320 H LDL Cholesterol, Calc TNP VLDL Cholesterol, Calc TNP HDL Cholesterol 33 Cholesterol/HDL Ratio 9.7 H Urine Color Red Urine Appearance Cloudy A Urine pH 8.0 H Ur Specific [place] 1.020 Urine Protein 3+ H Urine Glucose (UA) Negative Urine Ketones Negative Urine Blood 3+ H Urine Nitrite Negative Urine Bilirubin Negative Urine Urobilinogen Negative Ur Leukocyte Esterase Negative Urine RBC >20 H Urine WBC 0-5 Ur Epithelial Cells 0-2 Urine Bacteria None Seen Urine Comment Nasal Screen MRSA (PCR) Diagnostic Findings Labs reviewed and notable for elevated high-sensitivity troponin up to 5255, normal BNP, stable renal function, normal potassium, elevated total cholesterol and triglycerides, mild anemia. History and physical report reviewed. Outpatient cardiology note reviewed from 01/09/2025. CTA chest report reviewed from 05/28/2025: No pulmonary embolus. CT abdomen/pelvis 05/29/2025: Mild bilateral perinephric fat stranding. Diffuse bladder wall thickening with subtle perivesical fat stranding, possible c ystitis. Dysmorphic uterus with multiple exophytic lesions, possible uterine fibroid per radiology. Cardiac cath report reviewed from 03/02/2017 from outside facility: Mid and mid to distal LAD stents patent with 30% in-stent restenosis more proximally. Medium size D1 60-70%. Small circumflex. Dominant RCA. Proximal RCA stent and proximal PLB stent patent. Proximal RCA 30%. Mid RCA 90%. LVEDP 18. Underwent mid RCA PCI with 2.75 x 28 mm CHELSIE. Vascular note reviewed from 05/07/2025. Echo 10/23/2024 report reviewed: LV EF 60-65%. Normal wall motion. No significant valvular abnormalities. ECG personally reviewed 05/28/2025: Sinus tachycardia 102 bpm. Medications Administered Current Inpatient Medications Acetaminophen (Acetaminophen 500 Mg Tab) 1,000 mg PO Q8H PRN PRN Reason: Pain or Fever Stop: 06/28/25 00:01 Last Admin: 05/29/25 02:31 Dose: 1,000 mg Aspirin (Aspirin 81 Mg Ectab) 81 mg PO DAILY OLE Stop: 06/28/25 08:59 Baclofen (Baclofen 10 Mg Tab) 10 mg PO TID OLE Stop: 06/28/25 08:59 Dextrose (Dextrose 50% 50 Ml Syringe) 25 - 50 ml IV UD PRN; Protocol PRN Reason: Hypoglycemia Protocol Stop: 06/28/25 00:01 Glucagon (Glucagon For Inj 1 Mg Vial) 1 mg SQ UD PRN; Protocol PRN Reason: Hypoglycemia Protocol Stop: 06/28/25 00:01 Glucose (Glucose 40% Gel 15 Gm Tube) 15 - 30 gm PO UD PRN; Protocol PRN Reason: Hypoglycemia Protocol Stop: 06/28/25 00:01 Glucose (Glucose 10 Tab/Tube) 4 - 8 tab PO UD PRN; Protocol PRN Reason: Hypoglycemia Protocol Stop: 06/28/25 00:01 Heparin Sodium/Dextrose (Heparin 54787 Unit/500 Ml D5w) 25,000 units in 500 mls @ 16 mls/hr IV .Q24H [facility]; Protocol Stop: 06/27/25 20:59 Last Titration: 05/29/25 07:15 Dose: 850 units/hr, 17 mls/hr Insulin Aspart (Insulin Aspart Per Unit Charge) 0 units SC ACHS OLE Stop: 06/28/25 00:29 Last Admin: 05/29/25 01:26 Dose: Not Given Insulin Glargine (Lantus Per Unit Charge) 5 units SC DAILY [facility] Stop: 06/28/25 08:59 Lidocaine (Lidocaine 5% 1 Patch) 1 patch TD DAILY PRN PRN Reason: Pain Stop: 06/28/25 00:18 Lisinopril (Lisinopril 20 Mg Tab) 20 mg PO DAILY OLE Stop: 06/28/25 08:59 Magnesium Oxide (Magnesium Oxide 400 Mg Tab) 400 mg PO QAM [facility] Stop: 06/28/25 08:59 Metoprolol Succinate (Metoprolol Succ 50mg Ext Rel Tab) 150 mg PO DAILY [facility] Stop: 06/28/25 08:59 Metoprolol Tartrate (Metoprolol Tartrate 1 Mg/Ml Vial) 5 mg IV Q4 PRN PRN Reason: Blood Pressure - High Stop: 06/28/25 03:59 Miscellaneous (Rotigotine [Neupro]: Order Awaiting Action) 1 each N/A QS [facility] Stop: 06/28/25 07:59 Miscellaneous (Carbohydrates For Hypoglycemia ) 15 - 30 gm PO UD PRN PRN Reason: Hypoglycemia Protocol Stop: 06/28/25 00:01 Miscellaneous (Remove Lidoderm Patch) 1 each N/A PM [facility] Stop: 06/28/25 20:59 Nitroglycerin (Nitroglycerin Sl 0.4 Mg/Tab Tab) 0.4 mg SL Q5M PRN PRN Reason: Chest Pain Stop: 06/28/25 00:01 Pramipexole Dihydrochloride (Pramipexole Dihydrochlo 0.5 Mg Tab) 0.5 mg PO BID [facility] Stop: 06/27/25 23:29 Last Admin: 05/29/25 00:57 Dose: 0.5 mg Rosuvastatin Calcium (Rosuvastatin Calcium 20 Mg Tab) 40 mg PO DAILY OLE Stop: 06/28/25 08:59 PG Care Time/CCT Total # of Minutes Spent Total Time Spent with Patient: Total time spent is greater than 50% in coordination of care (as documented) at patient's floor/unit and/or counseling patient: Coding Level of Care Code 69601 INT INP/OBS CARE 3/75MIN Diagnoses Non-ST elevation AR (NSTEMI) I21.4 HTN (hypertension) I10 Hypertension type: unspecified Hypercholesteremia E78.00 Chronic heart failure with preserved ejection fraction I50.32 Coronary artery disease I25.10 S/P coronary artery stent placement Z95.5 (2) HTN (hypertension) Hypertension type: unspecified Qualified Code(s): I10 - Essential (primary) hypertension
[2025-05-29 07:49] LABS: Hemoglobin A1C 8.4 % (4.5-5.6)
[2025-05-29] MEDS: ASPIRIN 81 MG ECTAB PO SCH (08:22)
[2025-05-29] MEDS: LANTUS PER UNIT CHARGE SC SCH (08:22)
[2025-05-29] MEDS: MAGNESIUM OXIDE 400 MG TAB PO SCH (08:23)
[2025-05-29] MEDS: METOPROLOL SUCC 50MG EXT REL TAB PO SCH (08:23)
[2025-05-29] MEDS: ROSUVASTATIN CALCIUM 20 MG TAB PO SCH (08:23)
[2025-05-29] MEDS: BACLOFEN 10 MG TAB PO SCH (08:24)
[2025-05-29] MEDS ORDERED: CLOPIDOGREL BISULFATE 75 MG TAB PO SCH (09:00)
--- NOTE | 2025-05-29 09:53 | Urology Consultation ---
Date of Consultation May 29, 2025 Assessment & Plan (1) Gross hematuria: 69-year-old female presenting with elevated blood pressure and chest pressure admitted for NSTEMI and was started on Heparin. Urology is consulted for gross hematuria. Patient afebrile and hemodynamically stable Labs reviewedcreatinine 0.88, WBC 8.97, hemoglobin 11.5 Urinalysis on arrival showed blood, but was not suggestive of infection CTAP without contrast reviewedthere was contrast within the system from CTA imaging; mild bilateral perinephric stranding, no hydronephrosis, no definite calculi noted. Bladder wall thickening. Patient reports 2 recent episodes of hematuria at home, which resolved Reports ongoing gross hematuria after starting heparin yesterday She is voiding spontaneously at present Plan: Recommend urine culture to rule out infection Continue to trend labs and H/H Consider initiating empiric antibiotic after obtaining urine culture given hx of recurrent UTIs Recommend monitor bladder emptying with postvoid residual bladder scan and then bladder scan as needed If patient develops urinary retention, then recommend placement of a 20 Indonesian or 22 Indonesian catheter Nursing can manually irrigate catheter if it becomes obstructed Urology will manage hematuria in setting of anticoagulation No acute intervention at this time Continue supportive care and medical management per hospital medicine Patient will need hematuria work-up with cystoscopy, likely outpatient depending on clinical course will follow History of Present Illness Reason for Consultation: gross hematuria, NSTEMI on heparin Attending Physician: Kwesi Naylor DO History of Present Illness This is a 69-year-old female with past medical history including multiple sclerosis, CAD, acute on chronic HFpEF, paroxysmal atrial flutter, hypertension, diabetes, and hyperlipidemia who presented to the emergency department on 05/28/2025 for evaluation of elevated blood pressure and chest pressure earlier in the day. On arrival to ED, she was afebrile, tachycardic and hypertensive. Lab work showed WBC 7.27, hemoglobin 12.5, sodium 134, creatinine 0.98. Troponin 2099.2. EKG showed no ST elevation. She underwent CTA chest which showed no pulmonary embolus. She was started on heparin drip and given aspirin in ED. She was admitted to the hospital medicine service for NSTEMI. Urology is consulted for gross hematuria. She underwent CT abdomen pelvis without contrast which showed mild bilateral perinephric fat stranding. No hydronephrosis. Bladder wall thickening with mild perivesical fat stranding. Urinalysis on arrival showed 3+ protein, 3+ blood, >20 RBC, 0-5 WBC, negative for bacteria. Labs today reviewedcreatinine 0.88, WBC 8.97, hemoglobin 11.5 Patient seen and examined in the ICU this morning. She is awake and sitting up in bed. She denies flank or suprapubic discomfort. She reports having an episode of pink urine about 1 month ago and then again 2 weeks ago, which resolved. Denies pain or dysuria during that time, but reported some difficulty passing urine leading up to those episodes. She reports she was treated with antibiotics recently for UTI. She reports her urine turned to dark red yesterday evening after Heparin was started. She is voiding spontaneously and reports that she is not passing clots. No fever or chills. She reports she was diagnosed with MS about 1 month ago. She has seen urology in the past for urinary incontinence. She reports hx of recurrent UTIs the past year. Denies f amily history of malignancy. Former smoker in the distant past. She was on Plavix and aspirin prior to arrival. She reports she has an upcoming appointment with urology due to hematuria. Allergies Allergy/AdvReac Type Severity Reaction Status Date / Time bee venom protein (honey bee) Allergy Severe DIFFICULTY Verified 05/28/25 18:58 BREATHING/HIVES/ITCHY Home Medications Medication Instructions Recorded Confirmed Type aspirin 81 mg tablet,delayed 81 mg PO DAILY 07/06/20 05/28/25 History release (Adult Low Dose Aspirin) clopidogrel 75 mg tablet (Plavix) 75 mg PO DAILY #90 tabs 10/07/24 05/28/25 Rx insulin glargine 100 unit/mL 5 unit (0.05 mL) SC DAILY #0 mL 11/04/24 05/28/25 Rx subcutaneous solution (Lantus U-100 Insulin) magnesium oxide 400 mg (241.3 mg 400 mg PO QAM #0 tabs 11/04/24 05/28/25 Rx magnesium) tablet lidocaine 4 % topical patch 1 patch topical DAILY PRN Pain 11/18/24 05/28/25 History acetaminophen 500 mg tablet 1,000 mg PO Q8H PRN Pain 11/27/24 05/28/25 History (Tylenol Extra Strength) metoprolol succinate 100 mg 150 mg PO DAILY 11/27/24 05/28/25 History tablet,extended release 24 hr furosemide 20 mg tablet 20 mg PO Q OTHER DAY 02/06/25 05/28/25 History rosuvastatin 40 mg tablet 40 mg PO DAILY 02/06/25 05/28/25 History rotigotine 1 mg/24 hour 1 patch transdermal DAILY 02/06/25 05/28/25 History transdermal 24 hour patch (Neupro) lisinopril 20 mg tablet 20 mg PO DAILY #90 tabs 03/17/25 05/28/25 Rx baclofen 10 mg tablet 10 mg PO TID #180 tabs 05/26/25 05/28/25 Rx diazepam 5 mg tablet 5 mg PO DIRECTED PRN FOR MRI'S 05/28/25 05/28/25 History ONLY pramipexole 0.25 mg tablet 0.5 mg PO BID 05/28/25 05/28/25 History Patient History Medical History Acute UTI Coronary artery disease Surgical History History of lumbar surgery L4-5 discectomy Social History Smoking Status: Former smoker Tobacco Type: Cigarettes Do You Dip or Chew Tobacco: No; Tobacco Cessation Education Requested by Patient: No Hx Alcohol Use: No Hx Substance Use: No Preferred Language: Ukrainian Communication Ability: Effective Visual Impairment: Limited Hearing Ability: Hard of Hearing Clearance Representative Required: No Beliefs That Will Affect Care: None marital status: Current Living Situation: Spouse and Family Current Living Situation Comment: household: pt, , pt's daughter, 3 grandchildren current occupational status: retired Feels Safe at Home: Yes Safety Concerns: Feels Safe At This Time Assistive Devices: Glasses, Walker and Wheelchair Review of Systems Review of Systems: All systems reviewed & are unremarkable except as noted in HPI & below Physical Exam Constitutional: + obese; no acute distress Respiratory: normal respiratory effort; no respiratory distress and no labored breathing Gastrointestinal (Abdomen): Inspection/Auscultation: abdomen normal to inspection Musculoskeletal: Head/Neck/Chest: normocephalic Neurologic: moves all extremities and awake Psychiatric: Orientation: alert and oriented x 3 Results & Data Vital Signs (Past 12 Hours) Vital Signs Temp Pulse Pulse Resp BP BP Pulse Ox 05/29/25 08:21 36.3 C L 05/29/25 07:18 87 17 94 05/29/25 07:01 154/79 H 05/29/25 06:00 128/74 05/29/25 05:00 128/71 05/29/25 04:00 36.6 C 92 H 16 127/64 93 05/29/25 03:43 87 18 129/65 93 05/29/25 02:00 87 19 145/73 H 93 05/29/25 01:43 158/81 H 05/29/25 01:01 86 14 143/82 H 95 05/29/25 00:30 36.8 C 05/29/25 00:18 91 H 14 176/94 H 94 05/29/25 00:00 95 H 05/28/25 22:45 87 18 99 05/28/25 22:00 84 18 166/91 H 97 O2 Del Method 05/29/25 08:21 05/29/25 07:18 05/29/25 07:01 05/29/25 06:00 05/29/25 05:00 05/29/25 04:00 Room Air 05/29/25 03:43 Room Air 05/29/25 02:00 Room Air 05/29/25 01:43 05/29/25 01:01 Room Air 05/29/25 00:30 05/29/25 00:18 Room Air 05/29/25 00:00 05/28/25 22:45 Room Air 05/28/25 22:00 Room Air PG Care Time/CCT Total # of Minutes Spent Total Time Spent with Patient: Total time spent is greater than 50% in coordination of care (as documented) at patient's floor/unit and/or counseling patient: Coding Level of Care Code 32966 INT INP/OBS CARE 2/55MIN Diagnoses Gross hematuria R31.0
--- NOTE | 2025-05-29 10:30 | Pre Anesthesia Assessment ---
Date of Service May 29, 2025 Pre Sedation Assessment Vital Signs Temp Pulse Pulse Resp BP BP Pulse Ox 05/29/25 08:21 36.3 C L 05/29/25 07:18 87 17 94 05/29/25 07:01 154/79 H 05/29/25 06:58 88 05/29/25 06:00 128/74 05/29/25 05:00 128/71 05/29/25 04:00 36.6 C 92 H 16 127/64 93 05/29/25 03:43 87 18 129/65 93 05/29/25 02:00 87 19 145/73 H 93 05/29/25 01:43 158/81 H 05/29/25 01:01 86 14 143/82 H 95 05/29/25 00:30 36.8 C 05/29/25 00:18 91 H 14 176/94 H 94 05/29/25 00:00 95 H 05/28/25 22:45 87 18 99 05/28/25 22:00 84 18 166/91 H 97 05/28/25 20:00 87 18 154/92 H 97 05/28/25 19:18 93 H 184/106 H 05/28/25 18:49 95 H 05/28/25 18:48 96 H 192/100 H 05/28/25 18:45 95 H 17 192/100 H 95 05/28/25 18:06 91 H 20 192/109 H 96 05/28/25 16:40 36.9 C 103 H 16 200/97 H 97 O2 Del Method 05/29/25 08:21 05/29/25 07:18 05/29/25 07:01 05/29/25 06:58 05/29/25 06:00 05/29/25 05:00 05/29/25 04:00 Room Air 05/29/25 03:43 Room Air 05/29/25 02:00 Room Air 05/29/25 01:43 05/29/25 01:01 Room Air 05/29/25 00:30 05/29/25 00:18 Room Air 05/29/25 00:00 05/28/25 22:45 Room Air 05/28/25 22:00 Room Air 05/28/25 20:00 Room Air 05/28/25 19:18 05/28/25 18:49 05/28/25 18:48 05/28/25 18:45 05/28/25 18:06 05/28/25 16:40 Room Air Cardiovascular + regular rate Respiratory normal respiratory effort, lungs clear to auscultation Pre-Sedation Airway Assessment Smoking Status: Former smoker Mallampati Class: III ASA: ASA3 NPO Status Date of Last Intake of Fluids: 05/29/25 Time of Last Intake of Fluids: 08:00 Date of Last Intake of Solid Food: 05/29/25 Time of Last Intake of Solid Foods: 08:00 Procedure Planning Contraindications for Sedation: none Current Medications Reviewed: Yes Notes The planned sedation has been discussed with the patient. Informed Consent was o btained. I have identified the patient, determined the appropriateness of sedation and have assessed the patient immediately prior to the procedure. All medicine(s) and interventions are by my order.
--- NOTE | 2025-05-29 10:49 | XCELERA ---
[id number]
[2025-05-29] MEDS: OPTIRAY 320 100ml IV ONE (11:04)
--- NOTE | 2025-05-29 11:43 | CT Scan Report ---
CT UROGRAM CLINICAL HISTORY: Gross hematuria. COMPARISON STUDY: Unenhanced abdominal CT scan performed the same day 05/29/2025. Abdominal CT dated 10/21/2024. TECHNIQUE: Following the IV administration of 94 cc of Optiray 320, CT urogram of the abdomen and p elmer is performed from the lung bases to the proximal femora. Images were obtained in the corticomed ullary and excretory phases of enhancement. Images are reviewed in the axial, sagittal, and coronal p lanes. IV contrast was administered without complication. A dose lowering technique was utilized adh ering to the principles of ALARA. CT DOSE: 2665.85 mGy.cm FINDINGS: Lung bases: The heart is mildly enlarged noting a small pericardial effusion. The coronary arteries a re densely calcified. The lung bases are clear noting dependent atelectasis. Liver: The contrast-enhanced liver is top normal in size and demonstrates diffusely diminished attenu ation indicating steatosis. Fatty sparing is seen adjacent to the gallbladder fossa. There is no intr ahepatic biliary ductal dilatation. The hepatic veins and portal veins are patent. Gallbladder: Unremarkable. Spleen: Normal in size and attenuation. Pancreas: Unremarkable. Adrenal glands: Unremarkable. Kidneys and ureters: The contrast enhanced kidneys are normal in size and without hydronephrosis. The re is no evidence of nephrolithiasis on these contrast-enhanced images. No ureteral stone is seen. Th ere is residual contrast within the ureters on the corticomedullary phase images. The kidneys enhance and excrete symmetrically. A subcentimeter cyst is noted on the left. No enhancing cortical mass les ion is identified. There is no evidence of urothelial lesion within the renal pelvis bilaterally or a long the course of either ureter. The proximal right ureter is not opacified. Abdominal vasculature: There is a dense atherosclerotic calcification and mild ectasia of the abdomin al aorta. Bowel: There is no bowel obstruction. [id number] fecal retention is seen throughout the colon. The appendix is well-visualized and normal. Peritoneum: There is no intraperitoneal free air or abdominal ascites. There is a fat-containing umbi lical hernia. Lymphadenopathy: None. Pelvic viscera: The bladder wall appears thickened and there is pericystic inflammation. The uterus i s enlarged, heterogeneous, and infiltrated by numerous fibroids. No adnexal lesion is seen. Skeletal structures: The skeletal structures are osteopenic. There is moderate lumbosacral spondylosi s and mild scoliosis. No lytic or blastic lesions are seen. IMPRESSION: 1. Findings suggest cystitis. Correlate with clinical findings and urinalysis. 2. Normal CT urogram assessment of the kidneys and ureters. 3. Fibroid uterus. 4. Hepatic steatosis. 5. Cardiomegaly noting advanced coronary artery atherosclerosis. 6. Additional findings as above. ACT 112: Negative or not required by law. Electronically signed by: Bereket Metz M.D. 05/29/2025 11:41 AM
[2025-05-29] MEDS: niCARdipine 2,000 MCG/20 ML SYR ONE (14:00)
[2025-05-29] MEDS: NITROGLYCERIN/D5W 100MCG/ML 20ML SYR ONE (14:01)
--- NOTE | 2025-05-29 14:37 | Cardiac Catheterization ---
[facility] Data: Internal Control Consultant Cardiac Status Clinical evaluation leading to the procedure CAD Presenation: Non STEMI Anginal Classification: CCS IV Cardiogenic Shock within 24 Hours: No Cardiac Arrest within 24 Hours: No Imaging Studies Past 6 Months: Yes Stress Studies Past 6 Months: No Coronary Anatomy Dominant: Right Diagnostic Physicians Name: Arsalan Lawler MD Status: Elective Closure Device Percutaneous Entry Location: Radial Closure Device: Radial Band Recommendations: PCI without planned CABG Cardiac Cath Procedure Full Procedure Date May 29, 2025 Pre-Procedure Diagnosis Pre-Procedure Diagnosis: Non STEMI AUC Score AUC Score: 9 Post-Procedure Diagnosis Post-Procedure Diagnosis: Severe CAD Procedure(s) Performed Procedure(s) Performed: Coronary Angiography and Left Heart Cath Family Practice Doctor Arsalan Lawler MD Financial Recruiter(s) Skinny Estimated Blood Loss Estimated Blood Loss: < 20 ml Medication(s) Medication(s): Fentanyl, Heparin, Lidocaine 1%, Nicardipine and Versed Summary of Findings Procedure: 1. Coronary angiography 2. Left heart catheterization 3. Moderate sedation Indication: Luis Manuel is Martita is a pleasant 69-year-old female with a history significant for CAD s/p PCI (LAD, RCA, PL), hypertension, dyslipidemia, heart failure with preserved EF. She is hospitalized with NSTEMI. Coronary angiography: 1. Left main: No significant CAD. 2. Left anterior descending: Proximal LAD stent with 20% in-stent restenosis. Mid LAD stent with long segment of 70% in-stent restenosis. Large D1 proximal 50%. Small caliber D2 with moderate diffuse CAD. Small caliber D3 ostial 70- 80% and mid 70-80%. TIERA-3 flow throughout the LAD system. 3. Circumflex: Small vessel with small OM 1. No significant CAD. 4. Right coronary artery: Dominant RCA. Proximal RCA stent with mild diffuse 30% in-stent restenosis. Mid RCA stent 60-70% stenosis and distally 40% in- stent restenosis. Ostial PDA 30%. Proximal PL stent 30% in-stent restenosis. Mid PL 95+% stenosis (just distal to previous stent). Left heart catheterization: 1. Left ventriculography was not performed. 2. LVEDP 11 mmHg. 3. No significant aortic stenosis. Moderate sedation: 1. Sedation start time: 1:51 PM 2. Sedation end time: 2:08 PM Procedural Notes: 1. Catheterization was performed via the left radial artery without known complication with 5 Yoruba JL 3.5 and JR4 diagnostic catheters. Impression: 1. Severe CAD involving mid RCA PLB. 2. Moderate to severe in-stent restenosis of mid LAD and mid RCA stents. 3. Severe CAD of small D3. 4. Otherwise, nonobstructive CAD. Plan: 1. Dr. Brown of interventional cardiology was asked to review images. Dr. Brown plans for PCI attempt of PL, which is the likely culprit vessel for her rest angina/NSTEMI. 2. Given that her in-stent restenosis of LAD and RCA are not likely the cause of her NSTEMI and that she has hematuria with heparin drip, we will consider medical management at this time. Hemodynamics Rest Ao:: 153/79 Final Ao: 148/75 LV: 163/5/11 Recommendations Recommendations: PCI without planned CABG Specimens Specimens: None Radiation Exposure (mGy) 939 mGy. Fluoro time 3.6 min. Contrast (mls) 45 ml Procedural Complication(s) None Disposition remained in labor relations analyst for interventional cardiology I attest to the content of the Intraoperative Record and any orders documented therein. Any exceptions are noted below. [facility] Card Cath Procedure Codes Cardiac Catheterization Procedure 1: Cardiovascular Cath Procedures: 59966 Coronaries and LHC (+/-LV) Moderate Sedation Procedure 1: Sedation/Anesthesia: 76756 Mod Sedation by the same physician;Init15 Min Child Age 5 & Up Procedure 2: Sedation/Anesthesia: 13386 Mod Sedation by the same physician; Ea [id number] Minutes PG Care Time/CCT Total # of Minutes Spent Total Time Spent with Patient: Total time spent is greater than 50% in coordination of care (as documented) at patient's floor/unit and/or counseling patient:
[2025-05-29] MEDS: HEPARIN (PORCINE) 1000 UNIT/ML 10 ML (CATH LAB USE ONLY) ONE ×2 (14:48→15:05)
[2025-05-29] MEDS: MIDAZOLAM HCL 1 MG/ML 2ML VIAL ONE (15:02)
[2025-05-29] MEDS: OPTIRAY 350 ONE (15:05)
--- NOTE | 2025-05-29 15:11 | Post Anesthesia Assessment ---
Date of Service May 29, 2025 Post Sedation Assessment Vital Signs Temp Pulse Pulse Pulse Resp BP BP 05/29/25 11:30 109 H 14 173/84 H 05/29/25 08:21 97.3 F L 05/29/25 07:35 05/29/25 07:18 87 17 05/29/25 07:01 154/79 H 05/29/25 06:58 88 05/29/25 06:00 128/74 05/29/25 05:00 128/71 05/29/25 04:00 97.9 F 92 H 16 127/64 05/29/25 03:43 87 18 129/65 05/29/25 02:00 87 19 145/73 H 05/29/25 01:43 158/81 H 05/29/25 01:01 86 14 143/82 H 05/29/25 00:30 98.2 F 05/29/25 00:18 91 H 14 176/94 H 05/29/25 00:00 95 H 05/28/25 22:45 87 18 05/28/25 22:00 84 18 166/91 H 05/28/25 20:00 87 18 154/92 H 05/28/25 19:18 93 H 184/106 H 05/28/25 18:49 95 H 05/28/25 18:48 96 H 192/100 H 05/28/25 18:45 95 H 17 192/100 H 05/28/25 18:06 91 H 20 192/109 H 05/28/25 16:40 98.4 F 103 H 16 200/97 H Pulse Ox O2 Del Method 05/29/25 11:30 98 Room Air 05/29/25 08:21 05/29/25 07:35 Room Air 05/29/25 07:18 94 05/29/25 07:01 05/29/25 06:58 05/29/25 06:00 05/29/25 05:00 05/29/25 04:00 93 Room Air 05/29/25 03:43 93 Room Air 05/29/25 02:00 93 Room Air 05/29/25 01:43 05/29/25 01:01 95 Room Air 05/29/25 00:30 05/29/25 00:18 94 Room Air 05/29/25 00:00 05/28/25 22:45 99 Room Air 05/28/25 22:00 97 Room Air 05/28/25 20:00 97 Room Air 05/28/25 19:18 05/28/25 18:49 05/28/25 18:48 05/28/25 18:45 95 05/28/25 18:06 96 05/28/25 16:40 97 Room Air Recovery Score Activity: Moves 4 extremities Respiration: Deep Breath/Cough Circulation: +/-20% PreAnes Value Consciousness: Fully Awake Oxygen Saturation: O2 needed for >90% Discharge Sedation Level of Care: Fast Track Phase II
--- NOTE | 2025-05-29 15:23 | Cardiac Catheterization ---
[facility] Data: Pipe Buffer Cardiac Status Clinical evaluation leading to the procedure CAD Presenation: Non STEMI Diagnostic Physicians Name: Carlos Enrique Brown MD Closure Device Recommendations: PCI without planned CABG Cardiac Cath Procedure Full Procedure Date May 29, 2025 Pre-Procedure Diagnosis Pre-Procedure Diagnosis: Non STEMI AUC Score AUC Score: 8 Post-Procedure Diagnosis Post-Procedure Diagnosis: Severe CAD Procedure(s) Performed Procedure(s) Performed: Coronary Angiography and PTCA Plumbing Assembler Carlos Enrique Brown MD Framing Machine Tender(s) Skinny Estimated Blood Loss Estimated Blood Loss: 35 Medication(s) Medication(s): Fentanyl, Heparin, Nicardipine, Nitroglycerin and Versed Summary of Findings Indication: NSTEMI. History of multivessel CAD and multivessel stenting Access: 6 Fr right radial artery Catheters: JR4 guide Findings: For full details of patient's coronary angiography please see cath report dictated by Dr. Lawler. Briefly, patient found to have multivessel disease with moderate to severe in- stent restenosis in mid LAD and mid RCA stents. Also with acute 95+% stenosis in proximal PLB. Decision to attempt PCI. -- PCI -- Antithrombotic therapy: Heparin, clopidogrel Procedure: RCA cannulated with JR4 Pre-procedure flow TIERA 2-3 Business Services Manager 50 wire passed across lesion into distal vessel Unable to pass 2.0 balloon across distal RCA at bifurcation with PDA despite iraida wire and GuideLiner Posteriorly branch/PLB rewired with barge pilot 50 Able to dilate proximal PLB with 1.5 balloon Unable to pass new 2.0 balloon across distal RCA again stopped at bifurcation of PDA. IC vasodilators administered for spasm Post procedure TIERA 3 flow, with no evidence of dissection. Residual 70 to 80% stenosis. Arterial Closure: TR band Summary: 1. Angioplasty of proximal right PLB with 1.5 mm balloon. Unable to pass larger balloons across distal RCA in-stent restenosis. Improved right PLB stenosis after angioplasty with TIERA-3 flow but residual severe stenosis. Recommendations: To PCU for continued monitoring Continue DAPT with aspirin, clopidogrel ideally for at least 1 year. Clopidogrel could be held for non-cardiac procedures after 2 weeks if needed for ongoing hematuria. Continue heparin infusion for total of 48 hours Continue statin, and ASCVD risk factor modification Medical management of residual PLB disease and in-stent RCA, LAD disease. Hemodynamics Rest Ao:: 148/75/107 Final Ao: 135/85/107 LV: -- Recommendations Recommendations: PCI without planned CABG Specimens Specimens: None Radiation Exposure (mGy) 3070 Contrast (mls) 100 Anesthesia Moderate [id number] Procedural Complication(s) None Disposition PCU I attest to the content of the Intraoperative Record and any orders documented therein. Any exceptions are noted below. [facility] Card Cath Procedure Codes Moderate Sedation Procedure 1: Sedation/Anesthesia: 45211 Mod Sedation by the same physician; Ea [id number] Minutes Angioplasty Procedure 1: Cardiovascular Angioplasty Procedures: 80247 PTCA; Single mafor coronary artery or branch RC LC LD PG Care Time/CCT Total # of Minutes Spent Total Time Spent with Patient: Total time spent is greater than 50% in coordination of care (as documented) at patient's floor/unit and/or counseling patient:
[2025-05-29] MEDS: METOPROLOL TARTRATE 1 MG/ML VIAL IV PRN (16:16)
[2025-05-29] MEDS: REMOVE LIDODERM PATCH SCH (20:47)
[2025-05-29 22:22] LABS: ANTI-Xa, UFH(UnfractionatedHep 0.35 IU/ml (0.3-0.7)
[2025-05-30 05:44] LABS: INR 1.0 (0.9-1.1); Partial Thromboplastin Time 30 Seconds (21-31); Prothrombin Time 11.0 Seconds (9.0-12.0)
[2025-05-30 05:47] LABS: ANTI-Xa, UFH(UnfractionatedHep 0.22 IU/ml (0.3-0.7)
[2025-05-30 05:51] LABS: Alanine Aminotransferase 27.0 U/L (7-52); Albumin Globulin Ratio 1.0 (0.9-2); Alkaline Phosphatase 65.0 U/L (34-104); Anion Gap 9.0 (3-11); Bilirubin,Total 0.5 mg/dl (0.2-1.0); Blood Urea Nitrogen 15.0 mg/dl (6-23); Calcium 9.4 mg/dl (8.6-10.3); Carbon Dioxide 26.0 mmol/L (21-32); Chloride 101.0 mmol/L (98-107); Creatinine Clr Calc Pharmacy 67.3 ml/min; Globulin 3.4 gm/dl (2.5-4.0); Glucose 133.0 mg/dl (70-99(Fasting)); Magnesium 1.8 mg/dl (1.7-2.4); Potassium 4.0 mmol/L (3.5-5.1); Sodium 136.0 mmol/L (136-145); Total Protein 6.9 gm/dl (6.0-8.3)
[2025-05-30 06:13] LABS: Hematocrit (blood only) 37.3 % (37.0-47.0); Hemoglobin 12.2 g/dl (12.0-16.0); Immature Granulocytes # (auto) 0.04 K/uL (0.01-0.20); Immature Granulocytes % (auto) 0.5 %; Mean Corpuscular Hemoglobin 26.7 pg (25.0-34.0); Mean Corpuscular Volume 81.6 fL (80.0-100.0); Platelet Count 258 K/uL (130-400); RDW Standard Deviation 48.0 fL (36.4-46.3); Red Blood Count 4.57 M/uL (4.20-5.40); White Blood Count 8.44 K/ul (4.8-10.8)
--- NOTE | 2025-05-30 06:16 | Electrocardiogram Report ---
Test Reason : Blood Pressure : */* mmHG Vent. Rate : 102 BPM Atrial Rate : 102 BPM P-R Int : 164 ms QRS Dur : 76 ms QT Int : 340 ms P-R-T Axes : 46 7 20 degrees QTcB Int : 443 ms Sinus tachycardia Poor R wave progression, consider anterior NM vs. lead placement vs. LVH When compared with ECG of 31-Oct-2024 08:13, No significant change was found Confirmed by Arsalan Lawler ([id number]) on 05/30/2025 6:16:49 AM Referred By: REFERRED SELF Confirmed By: Arsalan Lawler
--- NOTE | 2025-05-30 06:17 | Electrocardiogram Report ---
Test Reason : Blood Pressure : */* mmHG Vent. Rate : 85 BPM Atrial Rate : 85 BPM P-R Int : 166 ms QRS Dur : 80 ms QT Int : 380 ms P-R-T Axes : 49 9 16 degrees QTcB Int : 452 ms Normal sinus rhythm Normal ECG When compared with ECG of 28-May-2025 16:48, No significant change was found Confirmed by Arsalan Lawler ([id number]) on 05/30/2025 6:17:08 AM Referred By: REFERRED SELF Confirmed By: Arsalan Lawler
--- NOTE | 2025-05-30 06:17 | Electrocardiogram Report ---
Test Reason : Blood Pressure : */* mmHG Vent. Rate : 83 BPM Atrial Rate : 83 BPM P-R Int : 160 ms QRS Dur : 80 ms QT Int : 398 ms P-R-T Axes : 54 1 18 degrees QTcB Int : 467 ms Normal sinus rhythm Minimal voltage criteria for LVH, may be normal variant ( R in aVL ) Borderline ECG When compared with ECG of 29-May-2025 00:47, No significant change was found Confirmed by Arsalan Lawler ([id number]) on 05/30/2025 6:17:24 AM Referred By: REFERRED SELF Confirmed By: Arsalan Lawler
--- NOTE | 2025-05-30 06:17 | Electrocardiogram Report ---
Test Reason : Blood Pressure : */* mmHG Vent. Rate : 83 BPM Atrial Rate : 83 BPM P-R Int : 156 ms QRS Dur : 82 ms QT Int : 396 ms P-R-T Axes : 47 2 17 degrees QTcB Int : 465 ms Normal sinus rhythm Normal ECG When compared with ECG of 29-May-2025 06:11, No significant change was found Confirmed by Arsalan Lawler ([id number]) on 05/30/2025 6:17:42 AM Referred By: REFERRED SELF Confirmed By: Arsalan Lawler
--- NOTE | 2025-05-30 07:54 | Hospitalist Progress Note ---
Date of Service May 30, 2025 Assessment & Plan (1) Gross hematuria: (2) Type [address] elevation: Plan In summary this is a 69-year-old female who presented initially with centralized chest discomfort concerning for an acute coronary syndrome complicated by gross hematuria that has been progressive With respect to the patient's myocardial infarction her symptoms initially began midday on 05/28 and were persistent; there is no specific association with activity; the patient's previous myocardial infarction's have had similar symptoms; patient has numerous risk factors and established comorbidities increasing her risk for recurrent ACS; the patient's initial EKG did not reveal any concerning findings for acute ischemic injury; the patient's initial troponin was 2099 with subsequent measures of 5100; MICHELE score 121; she underwent cardiac catheterization on 05/29 during which an in-stent restenosis was ballooned without complication -Maintain continuous lunchroom monitor -Nursing to contact attending if patient develops recurrent or new anginal equivalent -cardiology consulted; recommend continuing heparin gtt through 05/31 as long as she remains stable with respect to her associated hematuria as discussed below Regarding the patient's gross hematuria a CT urogram was unremarkable on 05/29; urology plans for outpatient follow up with cystoscopy once stable from a cardiac standpoint Admission and Anticipated Discharge Date Admission Date: May 28, 2025 Subjective Ms. Anders is a 69-year-old female whose active medical conditions include type 2 diabetes mellitus with multiple complications, paroxysmal atrial flutter with chronic heart failure with preserved ejection fraction, among many other chronic medical conditions who presented to the [facility] on 05/28 due to centralized chest pressure that was unrelenting. Overnight there were no acute events; they continue to feel tired, but without residual episodes of angina or any anginal equivalents Review of Systems Review of Systems: Review of cardiovascular, pulmonary, gastrointestinal, genitourinary, constitutional systems was unremarkable Physical Exam Physical Exam: General: Adult female in no acute distress Vital Signs: Reviewed HEENT: Extraocular motion intact; mucous membranes moist; pupils equally round reactive to light Neck: No appreciable JVD at rest; hepatojugular reflux is present Pulmonary: Symmetric chest wall excursion that is restricted, secondary to body habitus; otherwise lungs are clear to auscultation bilaterally Cardiovascular: Regular rate and rhythm without murmurs, rubs, or gallops; bilateral radial and posterior tibial pulse 2+ with 1+ pitting edema distal to the knees bilaterally Genitourinary: Chi catheter in place with frankly bloody urine without clear sediment, nor clot formation Neurologic: CN II-XII grossly intact; no discernible focal weakness nor paresthesias Results & Data Results & Data Vital Signs (Past 12 Hours) Vital Signs Temp Pulse Pulse Resp BP BP Pulse Ox 05/30/25 07:46 36.5 C 97 H 17 156/80 H 95 05/30/25 07:00 100 H 05/30/25 06:06 36.6 C 100 H 18 174/97 H 97 05/30/25 02:28 89 05/30/25 00:02 05/29/25 23:30 36.6 C 83 19 127/65 93 05/29/25 21:34 O2 Del Method O2 Del Method 05/30/25 07:46 Room Air 05/30/25 07:00 05/30/25 06:06 Room Air 05/30/25 02:28 05/30/25 00:02 Room Air 05/29/25 23:30 Room Air 05/29/25 21:34 Room Air PG Care Time/CCT Total # of Minutes Spent Total Time Spent with Patient: Total time spent is greater than 50% in coordination of care (as documented) at patient's floor/unit and/or counseling patient: Coding Level of Care Code 68444 SUB INP/OBS CARE 2/35MIN Diagnoses Gross hematuria R31.0 Type [address] elevation I21.4
[2025-05-30] MEDS ORDERED: Nursing to Pharmacy Communication SCH (09:15)
--- NOTE | 2025-05-30 09:51 | Cardiology Progress Note ---
Date of Service May 30, 2025 Assessment & Plan (1) Non-ST elevation [place] (NSTEMI): (2) HTN (hypertension): (3) Hypercholesteremia: (4) Chronic heart failure with preserved ejection fraction: (5) Coronary artery disease: (6) S/P coronary artery stent placement: Plan ASSESSMENT/PLAN: 1. NSTEMI: Thought to be due to a lesion in the posterolateral branch that was not amenable to stenting. Balloon angioplasty performed with some improvement in flow. Medical therapy elected. Our hope is to continue heparin for another 24 hours. She will continue dual antiplatelet therapy. Continue metoprolol. 2. CAD s/p prior LAD, RCA, PLB with restenosis at these sites. Catheterization did demonstrate progressive disease in these distributions and there was an attempt made at percutaneous intervention of the PLB. Will continue aggressive secondary prevention with dual antiplatelet therapy and rosuvastatin. 3. Hypertension: Blood pressure improved but still elevated at times. I think we could try some low-dose amlodipine as well both for its vasodilatory effect and antihypertensive effect. 4. Dyslipidemia: Continue high intensity statin therapy. Direct LDL 65. 5. Hematuria: Occurred once placed on heparin. As per urology and primary hospitalist service. 6. Chronic heart failure with preserved EF: She does not appear to be significantly hypervolemic and uses Lasix 20 mg every other day in the outpatient setting. No SGLT2 inhibitor given chronic UTI issues. 7. Paroxysmal atrial flutter: Noted in her records but details unclear at the time of this consultation. No arrhythmias noted on telemetry. Admission and Anticipated Discharge Date Admission Date: May 28, 2025 Subjective This morning the patient felt tired. She was unable to sleep last night due to discomfort in certain positions. She has not had any residual chest discomfort. No significant dyspnea. Some mild dizziness when changing positions, but this is chronic in nature. No presyncope. No sense of palpitation. Review of Systems Review of Systems: Per HPI Physical Exam Physical Exam: Gen.: No acute distress. Alert and oriented. She answers all questions appropriately. HEENT: Anicteric sclera. Neck: No JVD. No bruits. Normal carotid upstrokes bilaterally. Cardiac: Regular. Normal S1-S2. No murmurs, rubs, or gallops. Pulmonary: Clear to auscultation bilaterally without wheezes, rales, or rhonchi. Extremities: Palpable left radial pulse. No hematoma or significant ecchymosis. Good perfusion of the left hand. Psychiatric: Affect appears appropriate. Results & Data Vital Signs (Past 12 Hours) Vital Signs Temp Pulse Pulse Resp BP BP Pulse Ox 05/30/25 07:46 36.5 C 97 H 17 156/80 H 95 05/30/25 07:00 100 H 05/30/25 06:06 36.6 C 100 H 18 174/97 H 97 05/30/25 02:28 89 05/30/25 00:02 05/29/25 23:30 36.6 C 83 19 127/65 93 O2 Del Method O2 Del Method 05/30/25 07:46 Room Air 05/30/25 07:00 05/30/25 06:06 Room Air 05/30/25 02:28 05/30/25 00:02 Room Air 05/29/25 23:30 Room Air Laboratory Results Abnormal Lab Results 05/29/25 05/29/25 05/29/25 03:55 14:03 14:38 WBC RBC Hgb Hct MCV MCH MCHC RDW Std Deviation RDW Coeff of Marshall Plt Count MPV Immature Gran % (Auto) Neut % (Auto) Lymph % (Auto) [place] % (Auto) Eos % (Auto) Baso % (Auto) Neut # (Auto) Lymph # (Auto) [place] # (Auto) Eos # (Auto) Baso # (Auto) Immature Gran # (Auto) PT INR APTT PTT Ratio Activ Coag Time Kaolin 129 245 H Heparin Anti-Xa, Unfract Sodium Potassium Chloride Carbon Dioxide Anion Gap BUN Creatinine Est Cr Clr Drug Dosing eGFR BUN/Creatinine Ratio Glucose POC Glucose Calcium Magnesium Total Bilirubin AST ALT Alkaline Phosphatase Total Protein Albumin Globulin Albumin/Globulin Ratio LDL Cholesterol Direct 65 05/29/25 05/29/25 05/29/25 16:01 20:29 21:46 WBC RBC Hgb Hct MCV MCH MCHC RDW Std Deviation RDW Coeff of Marshall Plt Count MPV Immature Gran % (Auto) Neut % (Auto) Lymph % (Auto) [place] % (Auto) Eos % (Auto) Baso % (Auto) Neut # (Auto) Lymph # (Auto) [place] # (Auto) Eos # (Auto) Baso # (Auto) Immature Gran # (Auto) PT INR APTT PTT Ratio Activ Coag Time Kaolin Heparin Anti-Xa, Unfract 0.35 Sodium Potassium Chloride Carbon Dioxide Anion Gap BUN Creatinine Est Cr Clr Drug Dosing eGFR BUN/Creatinine Ratio Glucose POC Glucose 226 H 168 H Calcium Magnesium Total Bilirubin AST ALT Alkaline Phosphatase Total Protein Albumin Globulin Albumin/Globulin Ratio LDL Cholesterol Direct 05/30/25 05/30/25 05:23 07:51 WBC 8.44 RBC 4.57 Hgb 12.2 Hct 37.3 MCV 81.6 MCH 26.7 MCHC 32.7 RDW Std Deviation 48.0 H RDW Coeff of Marshall 16.2 H Plt Count 258 MPV 10.3 Immature Gran % (Auto) 0.5 Neut % (Auto) 61.1 Lymph % (Auto) 26.5 [place] % (Auto) 7.9 Eos % (Auto) 3.6 Baso % (Auto) 0.4 Neut # (Auto) 5.16 Lymph # (Auto) 2.24 [place] # (Auto) 0.67 H Eos # (Auto) 0.30 Baso # (Auto) 0.03 Immature Gran # (Auto) 0.04 PT 11.0 INR 1.0 APTT 30 PTT Ratio 1.1 Activ Coag Time Kaolin Heparin Anti-Xa, Unfract 0.22 L Sodium 136 Potassium 4.0 Chloride 101 Carbon Dioxide 26 Anion Gap 9 BUN 15 Creatinine 0.85 Est Cr Clr Drug Dosing 67.3 eGFR 75.04 BUN/Creatinine Ratio 17.6 Glucose 133 H POC Glucose 219 H Calcium 9.4 Magnesium 1.8 Total Bilirubin 0.5 AST 26 ALT 27 Alkaline Phosphatase 65 Total Protein 6.9 Albumin 3.5 Globulin 3.4 Albumin/Globulin Ratio 1.0 LDL Cholesterol Direct Diagnostic Findings Cardiac catheterization 05/29/2025: 1. Left main: No significant CAD. 2. Left anterior descending: Proximal LAD stent with 20% in-stent restenosis. Mid LAD stent with long segment of 70% in-stent restenosis. Large D1 proximal 50%. Small caliber D2 with moderate diffuse CAD. Small caliber D3 ostial 70- 80% and mid 70-80%. TIERA-3 flow throughout the LAD system. 3. Circumflex: Small vessel with small OM 1. No significant CAD. 4. Right coronary artery: Dominant RCA. Proximal RCA stent with mild diffuse 30% in-stent restenosis. Mid RCA stent 60-70% stenosis and distally 40% in- stent restenosis. Ostial PDA 30%. Proximal PL stent 30% in-stent restenosis. Mid PL 95+% stenosis (just distal to previous stent). 1. Angioplasty of proximal right PLB with 1.5 mm balloon. Unable to pass larger balloons across distal RCA in-stent restenosis. Improved right PLB stenosis after angioplasty with TIERA-3 flow but residual severe stenosis. Echocardiogram 05/29/2025: Normal LV systolic function with ejection fraction of 65 to 70%. No regional wall motion abnormalities. Mild LVH. No significant valvular heart disease. PG Care Time/CCT Total # of Minutes Spent Total Time Spent with Patient: Total time spent is greater than 50% in coordination of care (as documented) at patient's floor/unit and/or counseling patient: Coding Level of Care Code 80092 SUB INP/OBS CARE 2/35MIN Diagnoses Non-ST elevation [place] (NSTEMI) I21.4 HTN (hypertension) I10 Hypertension type: unspecified Hypercholesteremia E78.00 Chronic heart failure with preserved ejection fraction I50.32 Coronary artery disease I25.10 S/P coronary artery stent placement Z95.5 (2) HTN (hypertension) Hypertension type: unspecified Qualified Code(s): I10 - Essential (primary) hypertension
[2025-05-30 13:51] LABS: ANTI-Xa, UFH(UnfractionatedHep 0.16 IU/ml (0.3-0.7)
[2025-05-30] MEDS: HEPARIN SOD (PORCINE) 1000 UNIT/ML IV ONE (14:38)
[2025-05-30 20:38] LABS: ANTI-Xa, UFH(UnfractionatedHep 0.31 IU/ml (0.3-0.7)
[2025-05-31 06:05] LABS: Hematocrit (blood only) 35.7 % (37.0-47.0); Hemoglobin 11.4 g/dl (12.0-16.0); Immature Granulocytes # (auto) 0.04 K/uL (0.01-0.20); Immature Granulocytes % (auto) 0.5 %; Mean Corpuscular Hemoglobin 26.2 pg (25.0-34.0); Mean Corpuscular Volume 82.1 fL (80.0-100.0); Platelet Count 254 K/uL (130-400); RDW Standard Deviation 48.6 fL (36.4-46.3); Red Blood Count 4.35 M/uL (4.20-5.40); White Blood Count 7.49 K/ul (4.8-10.8)
[2025-05-31 06:22] LABS: Alanine Aminotransferase 21.0 U/L (7-52); Albumin Globulin Ratio 1.1 (0.9-2); Alkaline Phosphatase 57.0 U/L (34-104); Anion Gap 8.0 (3-11); Bilirubin,Total 0.4 mg/dl (0.2-1.0); Blood Urea Nitrogen 16.0 mg/dl (6-23); Calcium 9.2 mg/dl (8.6-10.3); Carbon Dioxide 26.0 mmol/L (21-32); Chloride 103.0 mmol/L (98-107); Creatinine Clr Calc Pharmacy 68.4 ml/min; Globulin 3.2 gm/dl (2.5-4.0); Glucose 137.0 mg/dl (70-99(Fasting)); Magnesium 1.9 mg/dl (1.7-2.4); Potassium 4.0 mmol/L (3.5-5.1); Sodium 137.0 mmol/L (136-145); Total Protein 6.7 gm/dl (6.0-8.3)
[2025-05-31 06:24] LABS: ANTI-Xa, UFH(UnfractionatedHep 0.28 IU/ml (0.3-0.7); INR 1.0 (0.9-1.1); Partial Thromboplastin Time 37 Seconds (21-31); Prothrombin Time 11.1 Seconds (9.0-12.0)
[2025-05-31 07:14] VITALS: RESP 19
--- NOTE | 2025-05-31 07:18 | Hospitalist Progress Note ---
Date of Service May 31, 2025 Assessment & Plan (1) Gross hematuria: (2) Type [address] elevation: Plan In summary this is a 69-year-old female who presented initially with centralized chest discomfort concerning for an acute coronary syndrome complicated by gross hematuria that has been progressive With respect to the patient's myocardial infarction her symptoms initially began midday on 05/28 and were persistent; there is no specific association with activity; the patient's previous myocardial infarction's have had similar symptoms; patient has numerous risk factors and established comorbidities increasing her risk for recurrent ACS; the patient's initial EKG did not reveal any concerning findings for acute ischemic injury; the patient's initial troponin was 2099 with subsequent measures of 5100; MICHELE score 121; she underwent cardiac catheterization on 05/29 during which an in-stent restenosis was ballooned without complication -Maintain continuous alarm security or surveillance monitor -Nursing to contact attending if patient develops recurrent or new anginal equivalent -cardiology consulted; anticipating heparin gtt today Regarding the patient's gross hematuria a CT urogram was unremarkable on 05/29; urology plans for outpatient follow up with cystoscopy once stable from a cardiac standpoint Hemoglobin has been stable throughout the patient's hospitalization despite gross hematuria Admission and Anticipated Discharge Date Admission Date: May 28, 2025 Anticipated date of discharge: 05/31/25 Subjective Ms. Anders is a 69-year-old female whose active medical conditions include type 2 diabetes mellitus with multiple complications, paroxysmal atrial flutter with chronic heart failure with preserved ejection fraction, among many other chronic medical conditions who presented to the [facility] on 05/28 due to centralized chest pressure that was unrelenting. Overnight there were no acute events; they continue to feel tired, but without residual episodes of angina or any anginal equivalents Review of Systems Review of Systems: Review of cardiovascular, pulmonary, gastrointestinal, genitourinary, constitutional systems was unremarkable Physical Exam Physical Exam: General: Adult female in no acute distress Vital Signs: Reviewed HEENT: Extraocular motion intact; mucous membranes moist; pupils equally round reactive to light Neck: No appreciable JVD at rest; hepatojugular reflux is present Pulmonary: Symmetric chest wall excursion that is restricted, secondary to body habitus; otherwise lungs are clear to auscultation bilaterally Cardiovascular: Regular rate and rhythm without murmurs, rubs, or gallops; bilateral radial and posterior tibial pulse 2+ with 1+ pitting edema distal to the knees bilaterally Genitourinary: Chi catheter in place with frankly bloody urine without clear sediment, nor clot formation Neurologic: CN II-XII grossly intact; no discernible focal weakness nor paresthesias Results & Data Results & Data Vital Signs (Past 12 Hours) Vital Signs Temp Pulse Pulse Pulse Resp BP Pulse Ox 05/31/25 07:13 36.5 C 90 19 147/76 H 92 05/31/25 03:56 36.6 C 91 H 20 151/89 H 94 05/31/25 01:03 85 05/31/25 00:21 36.5 C 98 H 20 148/86 H 90 05/30/25 19:40 O2 Del Method 05/31/25 07:13 Room Air 05/31/25 03:56 Room Air 05/31/25 01:03 05/31/25 00:21 Room Air 05/30/25 19:40 Room Air PG Care Time/CCT Total # of Minutes Spent Total Time Spent with Patient: Total time spent is greater than 50% in coordination of care (as documented) at patient's floor/unit and/or counseling patient: Coding Level of Care Code 67670 SUB INP/OBS CARE 2/35MIN Diagnoses Gross hematuria R31.0 Type [address] elevation I21.4
--- NOTE | 2025-05-31 10:06 | Cardiology Progress Note ---
Date of Service May 31, 2025 Assessment & Plan (1) Non-ST elevation [place] (NSTEMI): (2) HTN (hypertension): (3) Hypercholesteremia: (4) Chronic heart failure with preserved ejection fraction: (5) Coronary artery disease: (6) S/P coronary artery stent placement: Plan ASSESSMENT/PLAN: 1. NSTEMI: Thought to be due to a lesion in the posterolateral branch that was not amenable to stenting. No recurrent chest pain. We can continue the heparin infusion until around noon today. At that point can be discontinued. If she is ambulatory and free of chest pain consideration could be given for discharge this evening. 2. CAD s/p prior LAD, RCA, PLB with restenosis at these sites. Catheterization did demonstrate progressive disease in these distributions and there was an attempt made at percutaneous intervention of the PLB. Will continue aggressive secondary prevention with dual antiplatelet therapy and rosuvastatin. 3. Hypertension: Blood pressure improved but still elevated at times. Started on low-dose amlodipine yesterday. I think this can be continued. 4. Dyslipidemia: Continue high intensity statin therapy. Direct LDL 65. 5. Hematuria: Occurred once placed on heparin. Heparin scheduled to be discontinued in a few hours. Hemoglobin stable. As per urology and primary hospitalist service. 6. Chronic heart failure with preserved EF: She does not appear to be significantly hypervolemic and uses Lasix 20 mg every other day in the outpatient setting. No SGLT2 inhibitor given chronic UTI issues. 7. Paroxysmal atrial flutter: Noted in her records but details unclear at the time of this consultation. No arrhythmias noted on telemetry. Admission and Anticipated Discharge Date Admission Date: May 28, 2025 Subjective This morning patient claims of feeling better. She was ambulatory yesterday with a walker. No recurrent chest discomfort since her intervention. No limiting dyspnea. No breathing difficulty at rest. Some mild dizziness when changing position rapidly. This is chronic in nature. No sense of palpitation. Review of Systems Review of Systems: Per HPI Physical Exam Physical Exam: Gen.: No acute distress. Alert and oriented. She answers all questions appropriately. HEENT: Anicteric sclera. Neck: No JVD. No bruits. Normal carotid upstrokes bilaterally. Cardiac: Regular. Normal S1-S2. No murmurs, rubs, or gallops. Pulmonary: Clear to auscultation bilaterally without wheezes, rales, or rhonchi. Extremities: No clubbing or cyanosis. Psychiatric: Affect appears appropriate. Results & Data Vital Signs (Past 12 Hours) Vital Signs Temp Pulse Pulse Pulse Resp BP Pulse Ox 05/31/25 07:13 36.5 C 90 19 147/76 H 92 05/31/25 03:56 36.6 C 91 H 20 151/89 H 94 05/31/25 01:03 85 05/31/25 00:21 36.5 C 98 H 20 148/86 H 90 O2 Del Method 05/31/25 07:13 Room Air 05/31/25 03:56 Room Air 05/31/25 01:03 05/31/25 00:21 Room Air Laboratory Results Abnormal Lab Results 05/30/25 05/30/25 05/30/25 11:49 13:04 16:50 WBC RBC Hgb Hct MCV MCH MCHC RDW Std Deviation RDW Coeff of Marshall Plt Count MPV Immature Gran % (Auto) Neut % (Auto) Lymph % (Auto) [place] % (Auto) Eos % (Auto) Baso % (Auto) Neut # (Auto) Lymph # (Auto) [place] # (Auto) Eos # (Auto) Baso # (Auto) Immature Gran # (Auto) PT INR APTT PTT Ratio Heparin Anti-Xa, Unfract 0.16 L Sodium Potassium Chloride Carbon Dioxide Anion Gap BUN Creatinine Est Cr Clr Drug Dosing eGFR BUN/Creatinine Ratio Glucose POC Glucose 261 H 173 H Calcium Magnesium Total Bilirubin AST ALT Alkaline Phosphatase Total Protein Albumin Globulin Albumin/Globulin Ratio 05/30/25 05/30/25 05/31/25 19:42 20:42 05:37 WBC 7.49 RBC 4.35 Hgb 11.4 L Hct 35.7 L MCV 82.1 MCH 26.2 MCHC 31.9 L RDW Std Deviation 48.6 H RDW Coeff of Marshall 16.1 H Plt Count 254 MPV 9.9 Immature Gran % (Auto) 0.5 Neut % (Auto) 51.1 Lymph % (Auto) 35.8 [place] % (Auto) 8.3 Eos % (Auto) 3.6 Baso % (Auto) 0.7 Neut # (Auto) 3.83 Lymph # (Auto) 2.68 [place] # (Auto) 0.62 H Eos # (Auto) 0.27 Baso # (Auto) 0.05 Immature Gran # (Auto) 0.04 PT 11.1 INR 1.0 APTT 37 H PTT Ratio 1.4 Heparin Anti-Xa, Unfract 0.31 0.28 L Sodium 137 Potassium 4.0 Chloride 103 Carbon Dioxide 26 Anion Gap 8 BUN 16 Creatinine 0.83 Est Cr Clr Drug Dosing 68.4 eGFR 77.22 BUN/Creatinine Ratio 19.3 Glucose 137 H POC Glucose 172 H Calcium 9.2 Magnesium 1.9 Total Bilirubin 0.4 AST 22 ALT 21 Alkaline Phosphatase 57 Total Protein 6.7 Albumin 3.5 Globulin 3.2 Albumin/Globulin Ratio 1.1 05/31/25 07:35 WBC RBC Hgb Hct MCV MCH MCHC RDW Std Deviation RDW Coeff of Marshall Plt Count MPV Immature Gran % (Auto) Neut % (Auto) Lymph % (Auto) [place] % (Auto) Eos % (Auto) Baso % (Auto) Neut # (Auto) Lymph # (Auto) [place] # (Auto) Eos # (Auto) Baso # (Auto) Immature Gran # (Auto) PT INR APTT PTT Ratio Heparin Anti-Xa, Unfract Sodium Potassium Chloride Carbon Dioxide Anion Gap BUN Creatinine Est Cr Clr Drug Dosing eGFR BUN/Creatinine Ratio Glucose POC Glucose 147 H Calcium Magnesium Total Bilirubin AST ALT Alkaline Phosphatase Total Protein Albumin Globulin Albumin/Globulin Ratio PG Care Time/CCT Total # of Minutes Spent Total Time Spent with Patient: Total time spent is greater than 50% in coordination of care (as documented) at patient's floor/unit and/or counseling patient: Coding Level of Care Code 50483 SUB INP/OBS CARE 235MIN Diagnoses Non-ST elevation [place] (NSTEMI) I21.4 HTN (hypertension) I10 Hypertension type: unspecified Hypercholesteremia E78.00 Chronic heart failure with preserved ejection fraction I50.32 Coronary artery disease I25.10 S/P coronary artery stent placement Z95.5 (2) HTN (hypertension) Hypertension type: unspecified Qualified Code(s): I10 - Essential (primary) hypertension
[2025-05-31 11:19] VITALS: O2SAT 93
--- NOTE | 2025-05-31 12:07 | Electrocardiogram Report ---
Test Reason : Blood Pressure : */* mmHG Vent. Rate : 94 BPM Atrial Rate : 94 BPM P-R Int : 158 ms QRS Dur : 78 ms QT Int : 374 ms P-R-T Axes : 63 9 32 degrees QTcB Int : 467 ms Normal sinus rhythm Normal ECG When compared with ECG of 29-May-2025 15:21, No significant change was found Confirmed by Carlos Enrique Mata [id number] on 05/31/2025 12:07:46 PM Referred By: REFERRED SELF Confirmed By: Carlos Enrique Mata
[2025-05-31 13:00] LABS: ANTI-Xa, UFH(UnfractionatedHep 0.14 IU/ml (0.3-0.7)
[2025-05-31 15:35] VITALS: TEMP 97.5
[2025-05-31 15:56] VITALS: BP 156/80
--- NOTE | 2025-05-31 16:06 | Discharge Summary ---
Discharge Summary Date of Service May 31, 2025 Principal Dx & Hospital Course #1 = Principal Diagnosis (1) Gross hematuria: (2) Type [address] elevation: Plan In summary this is a 69-year-old female who presented initially with centralized chest discomfort concerning for an acute coronary syndrome complicated by gross hematuria that has been progressive With respect to the patient's myocardial infarction her symptoms initially began midday on 05/28 and were persistent; there is no specific association with activity; the patient's previous myocardial infarction's have had similar symptoms; patient has numerous risk factors and established comorbidities increasing her risk for recurrent ACS; the patient's initial EKG did not reveal any concerning findings for acute ischemic injury; the patient's initial troponin was 2099 with subsequent measures of 5100; MICHELE score 121; she underwent cardiac catheterization on 05/29 during which an in-stent restenosis was ballooned without complication -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 -Nursing to contact attending if patient develops recurrent or new anginal equivalent -cardiology consulted; anticipating heparin gtt today Regarding the patient's gross hematuria a CT urogram was unremarkable on 05/29; urology plans for outpatient follow up with cystoscopy once stable from a cardiac standpoint Hemoglobin has been stable throughout the patient's hospitalization despite gross hematuria Admission HPI Per Admitting Provider The patient is a 69-year-old female with a past medical history including multiple sclerosis, paroxysmal atrial flutter, acute on chronic HFpEF, cervical myelopathy, hypertension, seizure-like activity, diabetes mellitus, lumbar facet joint syndrome, hypercholesterolemia, hypertension and restless legs. The patient reports that she developed chest pressure sensation around noon today, that did radiate up toward her neck briefly, checked her blood pressure, found it to be elevated, and it remained elevated all afternoon. She presented to the emergency department this evening due to concerns regarding elevated blood pressure, was found to have elevated troponin 2099.2 with nonacute appearing EKG. Blood pressure was found to be 200/97 with heart rate 103, and she was given labetalol 10 mg IV by the ED. She also received aspirin 324mg, nitroglycerin sublingual 0.4 mg, and was started on heparin bolus/drip. [facility]. While in the emergency department she had addition of Nitropaste 1 inch to anterior chest wall. Discharge Exam General: Adult female in no acute distress Vital Signs: Reviewed HEENT: Extraocular motion intact; mucous membranes moist; pupils equally round reactive to light Neck: No appreciable JVD at rest; hepatojugular reflux is present Pulmonary: Symmetric chest wall excursion that is restricted, secondary to body habitus; otherwise lungs are clear to auscultation bilaterally Cardiovascular: Regular rate and rhythm without murmurs, rubs, or gallops; bilateral radial and posterior tibial pulse 2+ with 1+ pitting edema distal to the knees bilaterally Genitourinary: Chi catheter in place with frankly bloody urine without clear sediment, nor clot formation Neurologic: CN II-XII grossly intact; no discernible focal weakness nor paresthesias Discharge Plan Discharge Items Patient Disposition: Home - Self-Care Reason For Visit: HIGH BP Discharge Diagnosis: Type 1 myocardial infarction // gross hematuria Condition on Discharge: Fair Activity: Per Instructions section Non-emergency contact: Primary Care Provider, Wood Science Professor and Urologist Call non-emergency contact if: you have any medication questions and your symptoms worsen Follow-up/Referrals: Arsalan Lawler MD [Physician] - Brian Valencia MD [Physician] - (Gross hematuria) Akilah Cook PA-C [Primary Care Provider] - Diet: Low Fat and Low Sodium (2gm) Fluids: 1800ml (7 cups) Addtl Attending Provider Instructions: You were admitted to [facility] for centralized chest pressure found to be a type I myocardial infarction; you stay was slightly complicated by gross hematuria which is further discussed below. With regard to your presenting complaints, you underwent left heart catheterization on 05/29 and were found to have multiple areas of nonocclusive restenosis of previously intervened on coronary arteries. These were ballooned in the [employer] without complication. Subsequent of this, cardiology maintained you on a heparin IV drip through 05/31 to prevent any reocclusions from occurring during your hospitalization; this exacerbated your previously present gross hematuria which was further assessed as discussed below. Cardiology would like to initiate you on an additional medication called amlodipine at 2.5 mg p.o. daily. They have provided this prescription. We recommend you follow closely with your transplant rn after discharge and if experience any similar symptoms to what initially brought you to the hospital, you should return for evaluation. With regard to your gross hematuria, it was persistent through the hospitalization as well as exacerbated by heparin as mentioned above. Imaging assessment obtained during your hospitalization did not reveal any saige cause of this; urology was consulted and they recommend close follow-up in the outpatient setting for possible scheduled cystoscopy to further assess the genitourinary tract. Suspect that you will notice persistent, possibly worsened from your usual baseline degree of hematuria, over the coming days as your body continues to process the heparin that you were on during your hospitalization. If you pass any clots, notice persistent worsening of your hematuria, or experience symptoms of severe anemia such as chest pressure, lightheadedness with changing position, syncope, profound fatigue. It is recommended that you present to the emergency department for evaluation. Thank you for choosing [facility] as your healthcare provider. Pending Studies at Discharge: Yes (Urine cytology) Stand-Alone Forms: My [facility] Medications and DC Order Prescriptions: New amlodipine 2.5 mg tablet 2.5 mg PO DAILY Qty: 30 3RF Continued aspirin [Adult Low Dose Aspirin] 81 mg tablet,delayed release (DR/EC) 81 mg PO DAILY clopidogrel [Plavix] 75 mg tablet 75 mg PO DAILY Qty: 90 3RF Hold Instructions: Resume on 11/04/24. lidocaine 4 % adhesive patch,medicated 1 patch topical DAILY PRN (Reason: Pain) baclofen 10 mg tablet 10 mg PO TID Qty: 180 3RF acetaminophen [Tylenol Extra Strength] 500 mg tablet 1,000 mg PO Q8H PRN (Reason: Pain) metoprolol succinate 100 mg tablet extended release 24 hr 150 mg PO DAILY magnesium oxide 400 mg (241.3 mg magnesium) Tablet 400 mg PO QAM Qty: 0 0RF Rx Instructions: hold if diarrhea insulin glargine [Lantus U-100 Insulin] 100 unit/mL Solution 5 unit SC DAILY Qty: 0 0RF rosuvastatin 40 mg tablet 40 mg PO DAILY furosemide 20 mg tablet 20 mg PO Q OTHER DAY Neupro 1 mg/24 hour patch 24 hour 1 patch transdermal DAILY pramipexole 0.25 mg Tablet 0.5 mg PO BID Changed lisinopril 20 mg tablet 40 mg PO DAILY 30 Days Qty: 90 0RF Discontinued diazepam 5 mg tablet 5 mg PO DIRECTED PRN (Reason: FOR MRI'S ONLY) Rx Instructions: 5 mg orally take one tab 30 min priot to MRI, may repeat if needed; Discharge Orders: Discharge Order (Routine); Ordered 05/31/25 Ordered By: Kwesi Dumont/Other Patient Handouts: Clopidogrel Oral Tablet, Multiple Sclerosis, Managing Type 2 Diabetes, What is Hematuria?, Hematuria: Possible Causes Admission Data Admit Date/Time: 05/28/25 22:16 Attending Provider: Kwesi Naylor Admit Provider: Shade Nascimento Primary Care Provider: Akilah Cook Other Providers: Shade Nascimento; Maggy Amaya; Brian Valencia Other Interventions: Discharge Summary Assessment (RN) Last Done: 05/31/25 15:54 Hospital Stay Data Consultations 05/28/25 20:51 ED Decision to Admit Stat 05/29/25 00:02 Consult Cardiology Routine 05/29/25 01:47 Consult Urology Routine Procedures Performed Operation Date: 05/29/25 12:30 Actual Procedures p Cineradiography w/Routine Exam - Arsalan Lawler MD p POBA SGL Vessel - Carlos Enrique Brown MD p Cath, Left with Cors and Vent - Carlos Enrique Brown MD Diagnostic Imagining Performed 05/28/25 19:28 CT angio chest PE protocol Stat 05/29/25 01:47 CT Abd and Pelvis [CT abd pelvis wo con] Urgent 05/29/25 08:05 CT abd pelvis IV con only Routine 05/29/25 09:48 CL Cath Imgs for PACS use only Stat Pending Results Patient Have Any Pending Studies at Discharge: Yes (Urine cytology) Discharge Instructions Given to Patient (Per Discharging Provider) You were admitted to [facility] for centralized chest pressure found to be a type I myocardial infarction; you stay was slightly complicated by gross hematuria which is further discussed below. With regard to your presenting complaints, you underwent left heart catheterization on 05/29 and were found to have multiple areas of nonocclusive restenosis of previously intervened on coronary arteries. These were ballooned in the [employer] without complication. Subsequent of this, cardiology maintained you on a heparin IV drip through 05/31 to prevent any reocclusions from occurring during your hospitalization; this exacerbated your previously present gross hematuria which was further assessed as discussed below. Cardiology would like to initiate you on an additional medication called amlodipine at 2.5 mg p.o. daily. They have provided this prescription. We recommend you follow closely with your transplant rn after discharge and if experience any similar symptoms to what initially brought you to the hospital, you should return for evaluation. With regard to your gross hematuria, it was persistent through the hospitalization as well as exacerbated by heparin as mentioned above. Imaging assessment obtained during your hospitalization did not reveal any saige cause of this; urology was consulted and they recommend close follow-up in the outpatient setting for possible scheduled cystoscopy to further assess the genitourinary tract. Suspect that you will notice persistent, possibly worsened from your usual baseline degree of hematuria, over the coming days as your body continues to process the heparin that you were on during your hospitalization. If you pass any clots, notice persistent worsening of your hematuria, or experience symptoms of severe anemia such as chest pressure, lightheadedness with changing position, syncope, profound fatigue. It is recommended that you present to the emergency department for evaluation. Thank you for choosing [facility] as your healthcare provider. Total Time Total Time Spent Total Time Spent (In Minutes): I personally spent 40 minutes in today's discharge including chart review, review of consultations, and my exam Coding Level of Care Code 90804 INP/OBS DISCH >30 MIN Diagnoses Gross hematuria R31.0 Type [address] elevation I21.4
[2025-05-31 17:07] VITALS: PULSE 92
[2025-06-04 10:58] LABS: C-Reactive Protein High Sens. >20.0 mg/L
== END 2025-05-31 19:29 | disposition home or self-care (01) | DRG 251 ==
LOC: ED 16:32 → SUATTDRO 22:16 → 1E 22:16 → 4W 05-30 06:43

== ENCOUNTER 2025-06-13 02:44 | Inpatient (IN) ==
--- NOTE | 2025-06-13 03:58 | Emergency Department Note ---
Impression & Plan Acute UTI, Chest pain, Sinus tachycardia admit to the [facility] ED Provider Note NAME: EDWARD AMEZCUA AGE: 69 SEX: Female INFORMANT: Patient ED PROVIDER(S): Aliyah France DO CHIEF COMPLAINT: urinary frequency and fever PLAN: Disposition: admit to the [facility] MEDICAL DECISION MAKING: This is a 69-year-old female patient with history of recently diagnosed MS and frequent UTIs. The patient became increasingly weak today to the point that she was unable to get out of her chair. It was noted that she had urinary frequency and had developed a fever at home for which her family gave her Tylenol. laboratory studies reveal no leukocytosis. Hemoglobin is 11.1 which is baseline for the patient. Procalcitonin and lactate are negative. troponin is slightly elevated at 14.6. Glucose was elevated at 144. Patient was having restless leg while I was evaluating her. She had not taken her nighttime dose of Mirapex. I gave this to her here in the emergency department. On physical exam, the patient appeared to be quite dehydrated. She was bolused with IV normal saline solution. Patient developed an episode of substernal chest discomfort and increased tachycardia. She was given a dose of sublingual nitro which completely relieved the pain. She also received dose of IV Lopressor. I discussed case with the [facility] and they will evaluate for further inpatient care. Care/management discussed with: manager application and [facility] Triage Nursing notes: reviewed and agree With them. Vital Signs: reviewed and remarkable for hypertension and tachycardia Additional History obtained from: patient's family members who are at the bedside Chronic Medical/Social Conditions affecting care: MS and restless leg syndrome Differential Diagnosis: sepsis, UTI, electrolyte abnormality, hypoglycemia Diagnostics, independently interpreted by me: ECG: sinus tachycardia at a rate of 128. There is T wave inversion in leads III and aVF ECG #2 Sinus tachycardia at a rate of 146. ST segments are slightly depressed in leads I and aVL and T waves are now inverted in the Lateral leads. Manager Cardiovascular: Sinus tachycardia at a rate of 136 Imaging studies: portable chest x-ray: Mild cardiomegaly without evidence of pulmonary consolidation. HPI: 69 year old Female arrives for evaluation of urinary frequency and fever. patient has a history of MS associated with urinary incontinence and is susceptible to frequent UTIs. She has developed fever, chills and urinary frequency and family was unable to get her out of her chair. PAST MEDICAL HISTORY: See Below, PAST SURGICAL HISTORY: See Below, SOCIAL HISTORY: See Below, HOME MEDICATIONS: see list ALLERGIES: see list VITALS: See Below PHYSICAL EXAMINATION: HEENT: Head - normocephalic and atraumatic. Pupils are equal, round, and reactive to light. Extraocular eye muscles are intact, and sclera are anicteric. Nose - moist nasal mucosa without discharge. Mouth - extremely dry buccal mucosa. Oropharynx is nonerythematous and there is no tonsillar exudate or edema noted. Neck: Supple; no Cervical lymphadenopathy Heart: tachycardic rate and regular rhythm. There is a normal S1 and S2 with no murmurs, clicks, or gallops appreciated. Lungs: Clear to auscultation bilaterally with no wheezes, rales, or rhonchi. Abdomen: Soft, completely nontender, nondistended, with good bowel sounds. There are no palpable pulsatile masses or hepatosplenomegaly. There is no guarding, rigidity, or rebound noted. Extremities: No evidence of cyanosis, clubbing, or edema. There are easily palpable peripheral pulses. Skin: warm and dry with Poor turgor and no rashes. Emergency department treatment: surveillance system monitor, oral Mirapex, IV normal saline bolus, IV piperacillin/tazobactam, sublingual nitro, IV Lopressor emergency department course: The patient was evaluated in room B-2. A complete history and physical was performed. I did review the inpatient records from the end of May when she was here for an NSTEMI. Patient was a very difficult IV stick and difficult to obtain laboratory studies. I ordered a septic workup. Nursing staff was finally able to obtain a catheter urine specimen which appeared to be infected. The patient was given a dose of IV Zosyn. Patient was given an oral dose of Mirapex for her restless leg syndrome. On physical exam, the patient appeared quite dehydrated and was given a bolus of IV saline. The patient developed an episode of substernal chest discomfort. Her heart rate accelerated to 146. It appears to be sinus tachycardia. Patient was given sublingual nitroglycerin which relieved the chest discomfort. she was given a dose of IV Lopressor which lowered her heart rate. I discussed the case with Dr. Fitzpatrick. Past Med/Surg History Problem List (Updated 06/13/25 @ 08:20 by Aliyah France DO) Sinus tachycardia (Acute) Chest pain (Acute) Acute UTI (Acute) Type [address] elevation S/P coronary artery stent placement Chronic heart failure with preserved ejection fraction Gross hematuria Diabetes mellitus Non-ST elevation IL (NSTEMI) (Acute) Multiple sclerosis Proteinuria Ataxia Urinary incontinence Leg weakness Norovirus Paroxysmal atrial flutter Acute on chronic heart failure with preserved ejection fraction (HFpEF) Acute hypercapnic respiratory failure CARLIN (acute kidney injury) Dystonia Cervical myelopathy Demyelinating disease of central nervous system Carotid stenosis, right Elevated lactic acid level (Acute) Elevated troponin (Acute) Seizure-like activity (Acute) Acute UTI (Acute) Tachycardia (Acute) Hypertension (Acute) Altered mental status (Acute) Encephalopathy Septic shock Pyelonephritis Hypotension Elevated troponin Seizure-like activity Lumbar spondylosis Lumbar stenosis with neurogenic claudication Spondylolisthesis, lumbar region Scoliosis of lumbar region due to degenerative disease of spine in adult Left leg weakness Recurrent UTI Sciatica (Acute) Fever (Acute) CHF (congestive heart failure) Acute metabolic encephalopathy Tachycardia Uncontrolled type 2 diabetes mellitus with hyperglycemia Altered mental status Sepsis Lumbar facet joint syndrome Spinal stenosis, lumbar region without neurogenic claudication Hypercholesteremia HTN (hypertension) (Acute) Restless leg Medical History Acute UTI Coronary artery disease Surgical History History of lumbar surgery L4-5 discectomy Social History Smoking Status: Never smoker Tobacco Type: Cigarettes Do You Dip or Chew Tobacco: No; Hx Alcohol Use: No Hx Substance Use: No Preferred Language: Italian Communication Ability: Effective Visual Impairment: Limited Hearing Ability: Hard of Hearing Floor Covering Contractor Required: No Beliefs That Will Affect Care: None marital status: Current Living Situation: Spouse and Family Current Living Situation Comment: household: pt, , pt's daughter, 3 grandchildren current occupational status: retired Feels Safe at Home: Yes Assistive Devices: Glasses, Walker and Wheelchair Allergies Allergies Allergy/AdvReac Type Severity Reaction Status Date / Time bee venom protein (honey bee) Allergy Severe DIFFICULTY Verified 05/28/25 18:58 BREATHING/HIVES/ITCHY Home Meds Home Medications Medication Instructions Recorded Confirmed aspirin 81 mg tablet,delayed 81 mg PO DAILY 07/06/20 06/13/25 release (Adult Low Dose Aspirin) lidocaine 4 % topical patch 1 patch topical DAILY PRN Pain 11/18/24 06/13/25 acetaminophen 500 mg tablet 1,000 mg PO Q8H PRN Pain 11/27/24 06/13/25 (Tylenol Extra Strength) metoprolol succinate 100 mg 150 mg PO DAILY 11/27/24 06/13/25 tablet,extended release 24 hr furosemide 20 mg tablet 20 mg PO Q OTHER DAY 02/06/25 06/13/25 rosuvastatin 40 mg tablet 40 mg PO DAILY 02/06/25 06/13/25 rotigotine 1 mg/24 hour 1 patch transdermal DAILY 02/06/25 06/13/25 transdermal 24 hour patch (Neupro) pramipexole 0.25 mg tablet 0.5 mg PO BID 05/28/25 06/13/25 ezetimibe 10 mg tablet 10 mg PO DAILY 06/13/25 06/13/25 semaglutide 0.25 mg or 0.5 mg (2 0.25 mg subcut WK 06/13/25 06/13/25 mg/3 mL) subcutaneous pen injector (Ozempic) Previous Rx's Medication Instructions Recorded clopidogrel 75 mg tablet (Plavix) 75 mg PO DAILY #90 tabs 10/07/24 insulin glargine 100 unit/mL 5 unit (0.05 mL) SC DAILY #0 mL 11/04/24 subcutaneous solution (Lantus U-100 Insulin) magnesium oxide 400 mg (241.3 mg 400 mg PO QAM #0 tabs 11/04/24 magnesium) tablet baclofen 10 mg tablet 10 mg PO TID #180 tabs 05/26/25 amlodipine 2.5 mg tablet 2.5 mg PO DAILY #30 tabs 05/31/25 lisinopril 20 mg tablet 40 mg (2 x 20 mg) PO DAILY 30 days 05/31/25 #90 tabs Results & Data (ED) Vital Signs Vital Signs - 24 hr 06/13/25 02:53 06/13/25 02:57 06/13/25 03:00 Temperature 37 C Temperature Source Oral Pulse Rate 128 H 123 H 128 H Pulse Rate [Apical] Pulse Rhythm [Apical] Pulse Strength [Apical] Respiratory Rate 22 18 Respiratory Effort / Characteristics Non-Labored Spontaneous Respiratory Depth Normal Respiratory Pattern Regular Blood Pressure 174/93 H 174/93 H Blood Pressure [Left Arm] Blood Pressure Mean 120 129 Blood Pressure Mean [Left Arm] Blood Pressure Position [Left Arm] Pulse Oximetry 96 94 Oxygen Delivery Method Room Air Room Air Sepsis Recent Fever Within 48 Hours Yes Sepsis New/Unexplained Change in Mental Status N/A Sepsis Action Taken by Nursing No Action Required 06/13/25 03:18 06/13/25 03:48 06/13/25 04:19 Temperature Temperature Source Pulse Rate 134 H 134 H Pulse Rate [Apical] Pulse Rhythm [Apical] Pulse Strength [Apical] Respiratory Rate 23 23 Respiratory Effort / Characteristics Respiratory Depth Respiratory Pattern Blood Pressure 173/108 H Blood Pressure [Left Arm] Blood Pressure Mean 124 Blood Pressure Mean [Left Arm] Blood Pressure Position [Left Arm] Pulse Oximetry 95 94 Oxygen Delivery Method Room Air Room Air Sepsis Recent Fever Within 48 Hours Sepsis New/Unexplained Change in Mental Status Sepsis Action Taken by Nursing 06/13/25 04:30 06/13/25 04:45 06/13/25 05:00 Temperature Temperature Source Pulse Rate 129 H 129 H 133 H Pulse Rate [Apical] Pulse Rhythm [Apical] Pulse Strength [Apical] Respiratory Rate 18 18 18 Respiratory Effort / Characteristics Respiratory Depth Respiratory Pattern Blood Pressure 199/114 H 189/105 H 187/107 H Blood Pressure [Left Arm] Blood Pressure Mean 147 127 133 Blood Pressure Mean [Left Arm] Blood Pressure Position [Left Arm] Pulse Oximetry 95 95 94 Oxygen Delivery Method Room Air Room Air Room Air Sepsis Recent Fever Within 48 Hours Sepsis New/Unexplained Change in Mental Status Sepsis Action Taken by Nursing 06/13/25 05:30 06/13/25 05:45 06/13/25 06:00 Temperature Temperature Source Pulse Rate 136 H 129 H 132 H Pulse Rate [Apical] Pulse Rhythm [Apical] Pulse Strength [Apical] Respiratory Rate 23 23 23 Respiratory Effort / Characteristics Respiratory Depth Respiratory Pattern Blood Pressure 182/101 H 183/107 H 187/103 H Blood Pressure [Left Arm] Blood Pressure Mean 124 138 120 Blood Pressure Mean [Left Arm] Blood Pressure Position [Left Arm] Pulse Oximetry 95 96 92 Oxygen Delivery Method Room Air Sepsis Recent Fever Within 48 Hours Sepsis New/Unexplained Change in Mental Status Sepsis Action Taken by Nursing 06/13/25 06:00 06/13/25 06:15 06/13/25 06:27 Temperature Temperature Source Pulse Rate 135 H 135 H Pulse Rate [Apical] 150 H Pulse Rhythm [Apical] Regular Pulse Strength [Apical] Normal Respiratory Rate 20 27 H Respiratory Effort / Characteristics Non-Labored Respiratory Depth Normal Respiratory Pattern Regular Blood Pressure 193/98 H Blood Pressure [Left Arm] 205/110 H Blood Pressure Mean 125 Blood Pressure Mean [Left Arm] 141 Blood Pressure Position [Left Arm] Sitting Pulse Oximetry 95 93 Oxygen Delivery Method Room Air Room Air Sepsis Recent Fever Within 48 Hours Sepsis New/Unexplained Change in Mental Status Sepsis Action Taken by Nursing 06/13/25 06:46 Temperature Temperature Source Pulse Rate 141 H Pulse Rate [Apical] Pulse Rhythm [Apical] Pulse Strength [Apical] Respiratory Rate Respiratory Effort / Characteristics Respiratory Depth Respiratory Pattern Blood Pressure 198/103 H Blood Pressure [Left Arm] Blood Pressure Mean Blood Pressure Mean [Left Arm] Blood Pressure Position [Left Arm] Pulse Oximetry Oxygen Delivery Method Sepsis Recent Fever Within 48 Hours Sepsis New/Unexplained Change in Mental Status Sepsis Action Taken by Nursing Laboratory Data 06/13/25 07:40 06/13/25 04:58 Lab Results 06/13/25 06/13/25 06/13/25 Range/Units 04:58 05:00 05:23 WBC Cancelled RBC Cancelled Hgb Cancelled POC Hgb 11.6 L (12.0-16.0) g/dl Hct Cancelled POC Hct 34 L (37-47) % MCV Cancelled MCH Cancelled MCHC Cancelled RDW Std Deviation Cancelled RDW Coeff of Marshall Cancelled Plt Count Cancelled MPV Cancelled Immature Gran % (Auto) Cancelled Neut % (Auto) Cancelled Lymph % (Auto) Cancelled Kerr % (Auto) Cancelled Eos % (Auto) Cancelled Baso % (Auto) Cancelled Neut # (Auto) Cancelled Lymph # (Auto) Cancelled Kerr # (Auto) Cancelled Eos # (Auto) Cancelled Baso # (Auto) Cancelled Immature Gran # (Auto) Cancelled Absolute Nucleated RBC Cancelled Nucleated RBC % (auto) Cancelled Neutrophils % (Manual) Cancelled Band Neutrophils % Cancelled Lymphocytes % (Manual) Cancelled Prolymphocyte % Cancelled Reactive Lymphs % (Man) Cancelled Monocytes % (Manual) Cancelled Eosinophils % (Manual) Cancelled Basophils % (Manual) Cancelled Metamyelocytes % (Man) Cancelled Myelocytes % (Man) Cancelled Promyelocytes % (Man) Cancelled Blast Cells % (Manual) Cancelled Plasma Cell % (Manual) Cancelled Other Cells % Cancelled Nucleated RBC % Cancelled Neutrophils # (Manual) Cancelled Band Neutrophils # Cancelled Total Absolute Neuts Cancelled Lymphocytes # (Manual) Cancelled Prolymphocyte # Cancelled Reactive Lymphs # Cancelled Total Abs Lymphocytes Cancelled Monocytes # (Manual) Cancelled Eosinophils # (Manual) Cancelled Basophils # (Manual) Cancelled Metamyelocytes # (Man) Cancelled Myelocytes # (Manual) Cancelled Promyelocytes # (Man) Cancelled Blast Cells # (Man) Cancelled Plasma Cell # (Manual) Cancelled Other Cells # Cancelled Nucleated RBCs # (Man) Cancelled Hypersegmented Neuts Cancelled Hyposegmented Neuts Cancelled Hypogranular Neuts Cancelled Large Granular Lymphs Cancelled # Lrg Granular Lymphs Cancelled Hairy Cells Cancelled Smudge Cells Cancelled Toxic Granulation Cancelled Toxic Vacuolation Cancelled Dohle Bodies Cancelled Bety Rods Cancelled Platelet Estimate Cancelled Hypogranular Platelets Cancelled Giant Platelets Cancelled Platelet Satelliting Cancelled RBC Morphology Cancelled Polychromasia Cancelled Hypochromasia Cancelled Poikilocytosis Cancelled Basophilic Stippling Cancelled Anisocytosis Cancelled Microcytosis Cancelled Macrocytosis Cancelled Spherocytes Cancelled Pappenheimer Bodies Cancelled Sickle Cells Cancelled Target Cells Cancelled Tear Drop Cells Cancelled Ovalocytes Cancelled Stomatocytes Cancelled [place] Bodies Cancelled Echinocytes Cancelled Acanthocytes (Spur) Cancelled Rouleaux Cancelled RBC Agglutinates Cancelled Schistocytes Cancelled Sezary Cell Cancelled POC Sodium 136 (135-144) mmol/L Sodium 137 (136-145) mmol/L POC Potassium 4.5 (3.3-5.0) mmol/L Potassium 4.5 (3.5-5.1) mmol/L POC Chloride 109 (101-112) mmol/L Chloride 105 (98-107) mmol/L Carbon Dioxide 23 (21-32) mmol/L POC Total CO2 18 L (24-31) mmol/L Anion Gap 9 (3-11) POC Anion Gap 15.0 L (16-25) mmol/L POC BUN 25 H (7-18) mg/dl BUN 23 (6-23) mg/dl Creatinine 0.97 (0.6-1.2) mg/dl POC Creatinine 1.1 (0.6-1.3) mg/dl Est Cr Clr Drug Dosing 57.4 ml/min eGFR 64.05 BUN/Creatinine Ratio 23.7 H (10-20) Glucose 144 H (70-99(Fasting)) mg/dl POC Glucose (other) 151 H (70-99) mg/dl Lactate (0.4-2.0) mmol/L Calcium 8.9 (8.6-10.3) mg/dl POC Ioniz Calcium Umu 0.92 L (1.12-1.32) mmol/l Magnesium 1.7 (1.7-2.4) mg/dl Total Bilirubin 0.5 (0.2-1.0) mg/dl Direct Bilirubin 0.1 (0-0.2) mg/dl AST 21 (13-39) U/L ALT 22 (7-52) U/L Alkaline Phosphatase 70 (34-104) U/L Troponin I High Sens 14.6 H (0-14) pg/ml Total Protein 6.4 (6.0-8.3) gm/dl Albumin 3.5 (3.4-5.0) gm/dl Procalcitonin 0.15 (0-0.5) ng/ml Urine Color Yellow Urine Appearance Turbid A (Clear) Urine pH 6.0 (4.5-7.5) Ur Specific [place] 1.008 (1.000-1.030) Urine Protein 1+ H (Negative) Urine Glucose (UA) Negative (Negative) Urine Ketones Negative (Negative) Urine Blood 2+ H (Negative) Urine Nitrite Negative (Negative) Urine Bilirubin Negative (Negative) Urine Urobilinogen Negative (Negative) Ur Leukocyte Esterase 3+ H (Negative) Urine WBC (Auto) >50 H (0-5) /hpf Urine RBC (Auto) 11-20 H (0-2) /hpf U Hyaline Cast (Auto) 0-2 (0-2) /lpf U Epithel Cells (Auto) 0-2 (0-2) /hpf Urine Bacteria (Auto) 4+ H (None Seen) Urine Comment Blood Parasites ID Cancelled 09/13/25 Range/Units 07:40 WBC 8.52 RBC 4.36 Hgb 11.1 L POC Hgb (12.0-16.0) g/dl Hct 34.7 L POC Hct (37-47) % MCV 79.6 L MCH 25.5 MCHC 32.0 RDW Std Deviation 45.0 RDW Coeff of Marshall 15.7 H Plt Count 243 MPV 9.5 Immature Gran % (Auto) 0.4 Neut % (Auto) 80.4 Lymph % (Auto) 10.4 Kerr % (Auto) 7.6 Eos % (Auto) 0.7 Baso % (Auto) 0.5 Neut # (Auto) 6.85 H Lymph # (Auto) 0.89 L Kerr # (Auto) 0.65 H Eos # (Auto) 0.06 Baso # (Auto) 0.04 Immature Gran # (Auto) 0.03 Absolute Nucleated RBC Nucleated RBC % (auto) Neutrophils % (Manual) Band Neutrophils % Lymphocytes % (Manual) Prolymphocyte % Reactive Lymphs % (Man) Monocytes % (Manual) Eosinophils % (Manual) Basophils % (Manual) Metamyelocytes % (Man) Myelocytes % (Man) Promyelocytes % (Man) Blast Cells % (Manual) Plasma Cell % (Manual) Other Cells % Nucleated RBC % Neutrophils # (Manual) Band Neutrophils # Total Absolute Neuts Lymphocytes # (Manual) Prolymphocyte # Reactive Lymphs # Total Abs Lymphocytes Monocytes # (Manual) Eosinophils # (Manual) Basophils # (Manual) Metamyelocytes # (Man) Myelocytes # (Manual) Promyelocytes # (Man) Blast Cells # (Man) Plasma Cell # (Manual) Other Cells # Nucleated RBCs # (Man) Hypersegmented Neuts Hyposegmented Neuts Hypogranular Neuts Large Granular Lymphs # Lrg Granular Lymphs Hairy Cells Smudge Cells Toxic Granulation Toxic Vacuolation Dohle Bodies Bety Rods Platelet Estimate Hypogranular Platelets Giant Platelets Platelet Satelliting RBC Morphology Polychromasia Hypochromasia Poikilocytosis Basophilic Stippling Anisocytosis Microcytosis Macrocytosis Spherocytes Pappenheimer Bodies Sickle Cells Target Cells Tear Drop Cells Ovalocytes Stomatocytes [place] Bodies Echinocytes Acanthocytes (Spur) Rouleaux RBC Agglutinates Schistocytes Sezary Cell POC Sodium (135-144) mmol/L Sodium (136-145) mmol/L POC Potassium (3.3-5.0) mmol/L Potassium (3.5-5.1) mmol/L POC Chloride (101-112) mmol/L Chloride (98-107) mmol/L Carbon Dioxide (21-32) mmol/L POC Total CO2 (24-31) mmol/L Anion Gap (3-11) POC Anion Gap (16-25) mmol/L POC BUN (7-18) mg/dl BUN (6-23) mg/dl Creatinine (0.6-1.2) mg/dl POC Creatinine (0.6-1.3) mg/dl Est Cr Clr Drug Dosing ml/min eGFR BUN/Creatinine Ratio (10-20) Glucose (70-99(Fasting)) mg/dl POC Glucose (other) (70-99) mg/dl Lactate 1.6 (0.4-2.0) mmol/L Calcium (8.6-10.3) mg/dl POC Ioniz Calcium Umu (1.12-1.32) mmol/l Magnesium (1.7-2.4) mg/dl Total Bilirubin (0.2-1.0) mg/dl Direct Bilirubin (0-0.2) mg/dl AST (13-39) U/L ALT (7-52) U/L Alkaline Phosphatase (34-104) U/L Troponin I High Sens (0-14) pg/ml Total Protein (6.0-8.3) gm/dl Albumin (3.4-5.0) gm/dl Procalcitonin (0-0.5) ng/ml Urine Color Urine Appearance (Clear) Urine pH (4.5-7.5) Ur Specific [place] (1.000-1.030) Urine Protein (Negative) Urine Glucose (UA) (Negative) Urine Ketones (Negative) Urine Blood (Negative) Urine Nitrite (Negative) Urine Bilirubin (Negative) Urine Urobilinogen (Negative) Ur Leukocyte Esterase (Negative) Urine WBC (Auto) (0-5) /hpf Urine RBC (Auto) (0-2) /hpf U Hyaline Cast (Auto) (0-2) /lpf U Epithel Cells (Auto) (0-2) /hpf Urine Bacteria (Auto) (None Seen) Urine Comment Blood Parasites ID Administered Medications Magnesium Sulfate/Dextrose (Magnesium Sulfate / D5w) 1 gm in 100 mls @ 50 mls/hr IV Q2H OLE Stop: 06/13/25 10:59 Last Admin: 06/13/25 07:07 Dose: 50 mls/hr Documented By: jessica Discontinued Medications Sodium Chloride (Nss) 1,000 mls @ 999 mls/hr IV .Q1H1M OLE Stop: 06/13/25 04:30 Last Infusion: 06/13/25 05:20 Dose: Infused Documented By: Admin: 06/13/25 04:16 Dose: 999 mls/hr Documented By: NACHO Piperacillin Sod/Tazobactam Sod (Zosyn) 4.5 gm in 100 mls @ 200 mls/hr IV NOW ONE; Protocol Stop: 06/13/25 06:14 Last Infusion: 06/13/25 06:36 Dose: Infused Documented By: Admin: 06/13/25 06:06 Dose: 200 mls/hr Documented By: NACHO Sodium Chloride (Nss) 500 mls @ 999 mls/hr IV .Q31M ONE Stop: 06/13/25 06:20 Last Infusion: 06/13/25 06:36 Dose: Infused Documented By: Admin: 06/13/25 06:06 Dose: 999 mls/hr Documented By: NACHO Metoprolol Tartrate (Metoprolol Tartrate 1 Mg/Ml Vial) 5 mg IV NOW STA Stop: 06/13/25 06:42 Last Admin: 06/13/25 06:46 Dose: 5 mg Documented By: NACHO Metoprolol Tartrate (Metoprolol Tartrate 1 Mg/Ml Vial) 5 mg IV NOW STA Stop: 06/13/25 07:01 Last Admin: 06/13/25 07:07 Dose: 5 mg Documented By: jessica Nitroglycerin (Nitroglycerin Sl 0.4 Mg/Tab Tab) 0.4 mg SL NOW STA Stop: 06/13/25 06:42 Last Admin: 06/13/25 06:46 Dose: 0.4 mg Documented By: NACHO Pramipexole Dihydrochloride (Pramipexole Dihydrochlo 0.5 Mg Tab) 0.5 mg PO NOW STA Stop: 06/13/25 03:33 Last Admin: 06/13/25 04:16 Dose: 0.5 mg Documented By: ANCHO Imaging Data Radiologist's Impression: Chest X-Ray 06/13/25 03:18 EXAM: XR chest 1V portable CLINICAL HISTORY: Sepsis. TECHNIQUE: An X-ray image of the chest was obtained in the AP projection. COMPARISON: 05/28/2025. FINDINGS: Pulmonary Parenchyma: The lungs are clear bilaterally. There is no evidence of consolidation, collapse, or focal opacities. No pulmonary nodules are identified. There is no evidence of pleural effusion or pleural thickening. Heart and Mediastinum: Mild cardiomegaly is unchanged. There is no mediastinal widening or masses. There is no hilar or mediastinal lymphadenopathy. Bony Thorax: The bony thorax appears intact without fractures or deformities. Soft Tissues: The soft tissues overlying the chest wall are unremarkable. IMPRESSION: 1. No acute cardiopulmonary abnormalities are identified. 2. Mild cardiomegaly is unchanged. 3. No significant interval changes. Electronically signed by Rafi Cook 06-13-2025 04:38 AM Discharge Plan Visit Data Chief Complaint: Illness Stated Complaint: MS, UTI?, Fever, Chills ED Provider: Aliyah France Discharge Problem: Acute UTI, Chest pain, Sinus tachycardia Condition: Fair Forms Stand Alone Forms: [facility] Prescriptions Prescriptions: No Action aspirin [Adult Low Dose Aspirin] 81 mg tablet,delayed release (DR/EC) 81 mg PO DAILY clopidogrel [Plavix] 75 mg tablet 75 mg PO DAILY Qty: 90 3RF Hold Instructions: Resume on 11/04/24. lidocaine 4 % adhesive patch,medicated 1 patch topical DAILY PRN (Reason: Pain) baclofen 10 mg tablet 10 mg PO TID Qty: 180 3RF acetaminophen [Tylenol Extra Strength] 500 mg tablet 1,000 mg PO Q8H PRN (Reason: Pain) metoprolol succinate 100 mg tablet extended release 24 hr 150 mg PO DAILY magnesium oxide 400 mg (241.3 mg magnesium) Tablet 400 mg PO QAM Qty: 0 0RF Rx Instructions: hold if diarrhea insulin glargine [Lantus U-100 Insulin] 100 unit/mL Solution 5 unit SC DAILY Qty: 0 0RF rosuvastatin 40 mg tablet 40 mg PO DAILY furosemide 20 mg tablet 20 mg PO Q OTHER DAY Neupro 1 mg/24 hour patch 24 hour 1 patch transdermal DAILY pramipexole 0.25 mg Tablet 0.5 mg PO BID lisinopril 20 mg tablet 40 mg PO DAILY 30 Days Qty: 90 0RF amlodipine 2.5 mg tablet 2.5 mg PO DAILY Qty: 30 3RF ezetimibe 10 mg tablet 10 mg PO DAILY Ozempic 0.25 mg or 0.5 mg (2 mg/3 mL) pen injector 0.25 mg SUBCUT WK Referrals Referrals: Akilah Cook PA-C [Primary Care Provider] -
[2025-06-13] MEDS: PRAMIPEXOLE DIHYDROCHLO 0.5 MG TAB PO STA (04:16)
[2025-06-13] MEDS: SODIUM CHLORIDE 0.9% 1,000 ML IV SCH (04:16)
--- NOTE | 2025-06-13 04:38 | XRay Report ---
EXAM: XR chest 1V portable CLINICAL HISTORY: Sepsis. TECHNIQUE: An X-ray image of the chest was obtained in the AP projection. COMPARISON: 05/28/2025. FINDINGS: Pulmonary Parenchyma: The lungs are clear bilaterally. There is no evidence of consolidation, collapse, or focal opacities. No pulmonary nodules are identified. There is no evidence of pleural effusion or pleural thickening. Heart and Mediastinum: Mild cardiomegaly is unchanged. There is no mediastinal widening or masses. There is no hilar or mediastinal lymphadenopathy. Bony Thorax: The bony thorax appears intact without fractures or deformities. Soft Tissues: The soft tissues overlying the chest wall are unremarkable. IMPRESSION: 1. No acute cardiopulmonary abnormalities are identified. 2. Mild cardiomegaly is unchanged. 3. No significant interval changes. Electronically signed by Rafi Cook 06-13-2025 04:38 AM
[2025-06-13 05:35] LABS: Appearance Urine Turbid (Clear); Bacteria Urine Automated 4+ (None Seen); Cast Urine Automated 0-2 /lpf (0-2); Epithelial Cell Urine Auto 0-2 /hpf (0-2); Glucose Urine UA Negative (Negative); WBC Urine Automated >50 /hpf (0-5)
[2025-06-13 05:46] LABS: Anion Gap 9.0 (3-11); Bilirubin,Total 0.5 mg/dl (0.2-1.0); Calcium 8.9 mg/dl (8.6-10.3); Carbon Dioxide 23.0 mmol/L (21-32); Chloride 105.0 mmol/L (98-107); Magnesium 1.7 mg/dl (1.7-2.4); Potassium 4.5 mmol/L (3.5-5.1); Sodium 137.0 mmol/L (136-145)
[2025-06-13 05:53] LABS: Alanine Aminotransferase 22.0 U/L (7-52); Alkaline Phosphatase 70.0 U/L (34-104); Blood Urea Nitrogen 23.0 mg/dl (6-23); Creatinine Clr Calc Pharmacy 57.4 ml/min; Glucose 144.0 mg/dl (70-99(Fasting)); Total Protein 6.4 gm/dl (6.0-8.3)
[2025-06-13] MEDS: PIPERACILLIN/TAZOBACTAM 4.5 GM/100 ML BAG IV ONE (06:06)
[2025-06-13] MEDS: SODIUM CHLORIDE 0.9% 500 ML IV ONE (06:06)
[2025-06-13] MEDS: METOPROLOL TARTRATE 1 MG/ML VIAL IV STA ×2 (06:46→07:07)
[2025-06-13] MEDS: NITROGLYCERIN SL 0.4 MG/TAB TAB SL STA (06:46)
[2025-06-13] MEDS: MAGNESIUM SULFATE / D5W 1 GM/100 ML BAG IV SCH (07:07)
[2025-06-13 07:54] LABS: Hematocrit (blood only) 34.7 % (37.0-47.0); Hemoglobin 11.1 g/dl (12.0-16.0); Immature Granulocytes # (auto) 0.03 K/uL (0.01-0.20); Immature Granulocytes % (auto) 0.4 %; Mean Corpuscular Hemoglobin 25.5 pg (25.0-34.0); Mean Corpuscular Volume 79.6 fL (80.0-100.0); Platelet Count 243 K/uL (130-400); RDW Standard Deviation 45.0 fL (36.4-46.3); Red Blood Count 4.36 M/uL (4.20-5.40); White Blood Count 8.52 K/ul (4.8-10.8)
[2025-06-13] MEDS: cefTRIAXone SODIUM 2,000 MG/50 ML BAG IV SCH (08:15)
[2025-06-13] MEDS: SODIUM CHLORIDE 0.9% 500 ML IV SCH (08:15)
[2025-06-13] MEDS: ATORVASTATIN 20 MG TAB PO SCH (08:21)
--- NOTE | 2025-06-13 08:49 | History & Physical Report ---
Date of Service June 13, 2025 Assessment & Plan (1) Chest pain: Plan: Lillian Anders is a 69 yo woman with PMH of CAD, A-flutter, chronic CHFpEF, diabetes (off insulin), MS, lumbar desk disorder for her CAD; has prior LAD, RCA, PLB. from 05/28--05/31, was here for NSTEMI , s/p LHC and found moderate to severe in stent re-stenosis of mid LAD and mid RCA stents also found 95% stenosis of prixmal PLB and s/p angioplasty of proximal right PLB with 1.5mm balloon, our trail construction worker noted difficulty to large balloon across distal RCA in stent restenosis. she was on heparin infusion and then dc on 05/31/2025 with aspirin plavix, and also on metoprolol 150mg, crestor 40mg, and lasix every other day on 06/13/2025, she's return to our hospital with chest pain episode and HR of 150. she was also found to has UTI and started on ceftriaxone. 1. acute chest pain 2. lower extremity edema 3. UTI 4. hx of CAD with LAD, RCA 5. recent stent to right PLB restenosis and residual severe stenosis 6. hematuria 7. CHFpEF, A-flutter 9. diabetes (no longer on insulin) 9. MS 10. umbar disk disease 1. acute chest pain etiology either PE, unstable angina heparin ACS dose, monitor for hematuria f/u duplex US appreciate cardiology eval for repeat LHC versus medical management 2. lower extremity edema, duplex US 3. hx of CAD has known multiple vessel cAD c/w aspirin, plavix, crestor potential increased metoprolol from 150mg ER to high dose appreciate cardiology input about repeat LHC and add imdur for symptomatic management UTI, ceftriaxone, daily, . CHFpEF. A-flutter her home med is metoprolol 150mg and crstor 40mg lasix every other day multiple sclerosis , she's on baclofen 10mg TID, neupro 1mg/24 patch 24 hours pramipexole 0.2m5 BID . hypomagnesium -magnesium 400mg daily . hypertension, she's also take amlodipine 2.5mg in addition, metoprolol (2) Acute UTI: (3) S/P coronary artery stent placement: (4) Chronic heart failure with preserved ejection fraction: (5) Multiple sclerosis: (6) Paroxysmal atrial flutter: History of Present Illness Chief Complaint: chest pain episode UTI tachycardia Primary Care Provider: Akilah Cook PA-C Lillian Jacques is a 69 yo woman with PMH of CAD with prior LAD, RCA, and PLBD with strenosis, , diabetes, CHFpEF, A-flutter, MS, hematuria, lumbar facet joint syndrome, cervical myelopathy, hypertension she was hospitalized in our facility in may 2025 for chest pain episode s/p LHC on on 05/29, s/p angioplasty of proximal right PLB with 1.5mm ballon. at that time, cardiology noted unable to pass larger balloon across distal RCA for in stent stenosis, and noted residual severe stenosis she was recommended heparin for 24 hours and then on aspirin, plavix and metoprolol per the patient she has no hematuria for several months. on 06/13/2025, she's was brought back to the hospital with chest pain episode and also found to has tachycardia with HR in 150 also noted to has UTI she will be admitted to medicine services for unstable angina, ruling out PE treatment for UTI she is is a poor historian but requested for full code Allergies Allergy/AdvReac Type Severity Reaction Status Date / Time bee venom protein (honey bee) Allergy Severe DIFFICULTY Verified 05/28/25 18:58 BREATHING/HIVES/ITCHY Home Medications Medication Instructions Recorded Confirmed Type aspirin 81 mg tablet,delayed 81 mg PO DAILY 07/06/20 06/13/25 History release (Adult Low Dose Aspirin) clopidogrel 75 mg tablet (Plavix) 75 mg PO DAILY #90 tabs 10/07/24 06/13/25 Rx insulin glargine 100 unit/mL 5 unit (0.05 mL) SC DAILY #0 mL 11/04/24 06/13/25 Rx subcutaneous solution (Lantus U-100 Insulin) magnesium oxide 400 mg (241.3 mg 400 mg PO QAM #0 tabs 11/04/24 06/13/25 Rx magnesium) tablet lidocaine 4 % topical patch 1 patch topical DAILY PRN Pain 11/18/24 06/13/25 History acetaminophen 500 mg tablet 1,000 mg PO Q8H PRN Pain 11/27/24 06/13/25 History (Tylenol Extra Strength) metoprolol succinate 100 mg 150 mg PO DAILY 11/27/24 06/13/25 History tablet,extended release 24 hr furosemide 20 mg tablet 20 mg PO Q OTHER DAY 02/06/25 06/13/25 History rosuvastatin 40 mg tablet 40 mg PO DAILY 02/06/25 06/13/25 History rotigotine 1 mg/24 hour 1 patch transdermal DAILY 02/06/25 06/13/25 History transdermal 24 hour patch (Neupro) baclofen 10 mg tablet 10 mg PO TID #180 tabs 05/26/25 06/13/25 Rx pramipexole 0.25 mg tablet 0.5 mg PO BID 05/28/25 06/13/25 History amlodipine 2.5 mg tablet 2.5 mg PO DAILY #30 tabs 05/31/25 06/13/25 Rx lisinopril 20 mg tablet 40 mg (2 x 20 mg) PO DAILY 30 days 05/31/25 06/13/25 Rx #90 tabs ezetimibe 10 mg tablet 10 mg PO DAILY 06/13/25 06/13/25 History semaglutide 0.25 mg or 0.5 mg (2 0.25 mg subcut WK 06/13/25 06/13/25 History mg/3 mL) subcutaneous pen injector (Ozempic) Past Med/Surg History Problem List (Updated 06/13/25 @ 08:20 by Aliyah France DO) Sinus tachycardia (Acute) Chest pain (Acute) Acute UTI (Acute) Type [address] elevation S/P coronary artery stent placement Chronic heart failure with preserved ejection fraction Gross hematuria Diabetes mellitus Non-ST elevation DC (NSTEMI) (Acute) Multiple sclerosis Proteinuria Ataxia Urinary incontinence Leg weakness Norovirus Paroxysmal atrial flutter Acute on chronic heart failure with preserved ejection fraction (HFpEF) Acute hypercapnic respiratory failure CARLIN (acute kidney injury) Dystonia Cervical myelopathy Demyelinating disease of central nervous system Carotid stenosis, right Elevated lactic acid level (Acute) Elevated troponin (Acute) Seizure-like activity (Acute) Acute UTI (Acute) Tachycardia (Acute) Hypertension (Acute) Altered mental status (Acute) Encephalopathy Septic shock Pyelonephritis Hypotension Elevated troponin Seizure-like activity Lumbar spondylosis Lumbar stenosis with neurogenic claudication Spondylolisthesis, lumbar region Scoliosis of lumbar region due to degenerative disease of spine in adult Left leg weakness Recurrent UTI Sciatica (Acute) Fever (Acute) CHF (congestive heart failure) Acute metabolic encephalopathy Tachycardia Uncontrolled type 2 diabetes mellitus with hyperglycemia Altered mental status Sepsis Lumbar facet joint syndrome Spinal stenosis, lumbar region without neurogenic claudication Hypercholesteremia HTN (hypertension) (Acute) Restless leg Medical History Acute UTI Coronary artery disease Surgical History History of lumbar surgery L4-5 discectomy Social History Smoking Status: Never smoker Tobacco Type: Cigarettes Do You Dip or Chew Tobacco: No; Hx Alcohol Use: No Hx Substance Use: No Preferred Language: Monegasque Communication Ability: Effective Visual Impairment: Limited Hearing Ability: Hard of Hearing Customer Sales Service Manager Required: No Beliefs That Will Affect Care: None marital status: Current Living Situation: Spouse and Family Current Living Situation Comment: household: pt, , pt's daughter, 3 grandchildren current occupational status: retired Feels Safe at Home: Yes Assistive Devices: Glasses, Walker and Wheelchair Review of Systems Review of Systems: Constitutional: No Weight Change, No Fever, No Chills, No Night Sweats, No Fatigue, No Malaise Cardiovascular: chest pain, no palpitation; no orthopnea lung: no coughing; no wheezing; no hemoptysis Gastrointestinal: No Nausea, No Vomiting, No Diarrhea, No Constipation, No Pain, No Heartburn, No Anorexia, No Dysphagia, No Hematochezia, Genitourinary: no hematuria Musculoskeletal: No Arthralgias, No Myalgias, No Joint Swelling, No Joint Stiffness, No Back Pain, No Neck Pain, No Injury History Neuro: No Weakness, No Numbness, No Paresthesias, No Loss of Consciousness, No Syncope, No Dizziness, No Headache, No Coordination Changes, No Recent Falls Heme/Lymph: No Bruising, No Bleeding, No Transfusions History, No Lymphadenopathy Endocrine: No Polyuria, No Polydipsia, No Temperature Intolerance Physical Exam Physical Exam: VITALS: Reviewed. WEIGHT/BMI reviewed. GEN: Healthy appearing, well-developed, NAD. -Head: NC/AT; -Eyes: PERRL, EOMI. No discharge or redn ess; NECK: Supple, with no masses. CV: RRR, no m/r/g. LUNGS: CTAB, no w/r/c. ABD: Soft, NT/ND, NBS, no masses or organomegaly. SKIN: lower extremity warm to touch MSK: No deformities, Normal gait. EXT: edema NEURO: AAOx3 Results & Data Results & Data Vital Signs (Past 12 Hours) Vital Signs Temp Pulse Pulse Resp BP BP Pulse Ox 06/13/25 08:22 121 H 146/89 H 06/13/25 06:46 141 H 198/103 H 06/13/25 06:27 135 H 06/13/25 06:15 135 H 27 H 193/98 H 93 06/13/25 06:00 150 H 20 205/110 H 95 06/13/25 06:00 132 H 23 187/103 H 92 06/13/25 05:45 129 H 23 183/107 H 96 06/13/25 05:30 136 H 23 182/101 H 95 06/13/25 05:00 133 H 18 187/107 H 94 06/13/25 04:45 129 H 18 189/105 H 95 06/13/25 04:30 129 H 18 199/114 H 95 06/13/25 04:19 134 H 23 173/108 H 94 06/13/25 03:48 134 H 23 06/13/25 03:18 95 06/13/25 03:00 128 H 18 174/93 H 94 06/13/25 02:57 37 C 123 H 22 174/93 H 96 06/13/25 02:53 128 H O2 Del Method 06/13/25 08:22 06/13/25 06:46 06/13/25 06:27 06/13/25 06:15 Room Air 06/13/25 06:00 Room Air 06/13/25 06:00 Room Air 06/13/25 05:45 06/13/25 05:30 06/13/25 05:00 Room Air 06/13/25 04:45 Room Air 06/13/25 04:30 Room Air 06/13/25 04:19 Room Air 06/13/25 03:48 06/13/25 03:18 Room Air 06/13/25 03:00 Room Air 06/13/25 02:57 Room Air 06/13/25 02:53 Laboratory Results Laboratory Results - last 72 hr 09/13/25 09/13/25 09/13/25 04:58 05:00 05:23 WBC Cancelled RBC Cancelled Hgb Cancelled POC Hgb 11.6 L Hct Cancelled POC Hct 34 L MCV Cancelled MCH Cancelled MCHC Cancelled RDW Std Deviation Cancelled RDW Coeff of [place] Cancelled Plt Count Cancelled MPV Cancelled Immature Gran % (Auto) Cancelled Neut % (Auto) Cancelled Lymph % (Auto) Cancelled [place] % (Auto) Cancelled Eos % (Auto) Cancelled Baso % (Auto) Cancelled Neut # (Auto) Cancelled Lymph # (Auto) Cancelled [place] # (Auto) Cancelled Eos # (Auto) Cancelled Baso # (Auto) Cancelled Immature Gran # (Auto) Cancelled Absolute Nucleated RBC Cancelled Nucleated RBC % (auto) Cancelled Neutrophils % (Manual) Cancelled Band Neutrophils % Cancelled Lymphocytes % (Manual) Cancelled Prolymphocyte % Cancelled Reactive Lymphs % (Man) Cancelled Monocytes % (Manual) Cancelled Eosinophils % (Manual) Cancelled Basophils % (Manual) Cancelled Metamyelocytes % (Man) Cancelled Myelocytes % (Man) Cancelled Promyelocytes % (Man) Cancelled Blast Cells % (Manual) Cancelled Plasma Cell % (Manual) Cancelled Other Cells % Cancelled Nucleated RBC % Cancelled Neutrophils # (Manual) Cancelled Band Neutrophils # Cancelled Total Absolute Neuts Cancelled Lymphocytes # (Manual) Cancelled Prolymphocyte # Cancelled Reactive Lymphs # Cancelled Total Abs Lymphocytes Cancelled Monocytes # (Manual) Cancelled Eosinophils # (Manual) Cancelled Basophils # (Manual) Cancelled Metamyelocytes # (Man) Cancelled Myelocytes # (Manual) Cancelled Promyelocytes # (Man) Cancelled Blast Cells # (Man) Cancelled Plasma Cell # (Manual) Cancelled Other Cells # Cancelled Nucleated RBCs # (Man) Cancelled Hypersegmented Neuts Cancelled Hyposegmented Neuts Cancelled Hypogranular Neuts Cancelled Large Granular Lymphs Cancelled # Lrg Granular Lymphs Cancelled Hairy Cells Cancelled Smudge Cells Cancelled Toxic Granulation Cancelled Toxic Vacuolation Cancelled Dohle Bodies Cancelled Bety Rods Cancelled Platelet Estimate Cancelled Hypogranular Platelets Cancelled Giant Platelets Cancelled Platelet Satelliting Cancelled RBC Morphology Cancelled Polychromasia Cancelled Hypochromasia Cancelled Poikilocytosis Cancelled Basophilic Stippling Cancelled Anisocytosis Cancelled Microcytosis Cancelled Macrocytosis Cancelled Spherocytes Cancelled Pappenheimer Bodies Cancelled Sickle Cells Cancelled Target Cells Cancelled Tear Drop Cells Cancelled Ovalocytes Cancelled Stomatocytes Cancelled Ely-[place] Bodies Cancelled Echinocytes Cancelled Acanthocytes (Spur) Cancelled Rouleaux Cancelled RBC Agglutinates Cancelled Schistocytes Cancelled Sezary Cell Cancelled POC Sodium 136 Sodium 137 POC Potassium 4.5 Potassium 4.5 POC Chloride 109 Chloride 105 Carbon Dioxide 23 POC Total CO2 18 L Anion Gap 9 POC Anion Gap 15.0 L POC BUN 25 H BUN 23 Creatinine 0.97 POC Creatinine 1.1 Est Cr Clr Drug Dosing 57.4 eGFR 64.05 BUN/Creatinine Ratio 23.7 H Glucose 144 H POC Glucose (other) 151 H Lactate Calcium 8.9 POC Ioniz Calcium Umu 0.92 L Magnesium 1.7 Total Bilirubin 0.5 Direct Bilirubin 0.1 AST 21 ALT 22 Alkaline Phosphatase 70 Troponin I High Sens 14.6 H Total Protein 6.4 Albumin 3.5 Procalcitonin 0.15 Urine Color Yellow Urine Appearance Turbid A Urine pH 6.0 Ur Specific [place] 1.008 Urine Protein 1+ H Urine Glucose (UA) Negative Urine Ketones Negative Urine Blood 2+ H Urine Nitrite Negative Urine Bilirubin Negative Urine Urobilinogen Negative Ur Leukocyte Esterase 3+ H Urine WBC (Auto) >50 H Urine RBC (Auto) 11-20 H U Hyaline Cast (Auto) 0-2 U Epithel Cells (Auto) 0-2 Urine Bacteria (Auto) 4+ H Urine Comment Blood Parasites ID Cancelled 06/13/25 06/13/25 07:40 07:41 WBC 8.52 RBC 4.36 Hgb 11.1 L POC Hgb Hct 34.7 L POC Hct MCV 79.6 L MCH 25.5 MCHC 32.0 RDW Std Deviation 45.0 RDW Coeff of [place] 15.7 H Plt Count 243 MPV 9.5 Immature Gran % (Auto) 0.4 Neut % (Auto) 80.4 Lymph % (Auto) 10.4 [place] % (Auto) 7.6 Eos % (Auto) 0.7 Baso % (Auto) 0.5 Neut # (Auto) 6.85 H Lymph # (Auto) 0.89 L [place] # (Auto) 0.65 H Eos # (Auto) 0.06 Baso # (Auto) 0.04 Immature Gran # (Auto) 0.03 Absolute Nucleated RBC Nucleated RBC % (auto) Neutrophils % (Manual) Band Neutrophils % Lymphocytes % (Manual) Prolymphocyte % Reactive Lymphs % (Man) Monocytes % (Manual) Eosinophils % (Manual) Basophils % (Manual) Metamyelocytes % (Man) Myelocytes % (Man) Promyelocytes % (Man) Blast Cells % (Manual) Plasma Cell % (Manual) Other Cells % Nucleated RBC % Neutrophils # (Manual) Band Neutrophils # Total Absolute Neuts Lymphocytes # (Manual) Prolymphocyte # Reactive Lymphs # Total Abs Lymphocytes Monocytes # (Manual) Eosinophils # (Manual) Basophils # (Manual) Metamyelocytes # (Man) Myelocytes # (Manual) Promyelocytes # (Man) Blast Cells # (Man) Plasma Cell # (Manual) Other Cells # Nucleated RBCs # (Man) Hypersegmented Neuts Hyposegmented Neuts Hypogranular Neuts Large Granular Lymphs # Lrg Granular Lymphs Hairy Cells Smudge Cells Toxic Granulation Toxic Vacuolation Dohle Bodies Bety Rods Platelet Estimate Hypogranular Platelets Giant Platelets Platelet Satelliting RBC Morphology Polychromasia Hypochromasia Poikilocytosis Basophilic Stippling Anisocytosis Microcytosis Macrocytosis Spherocytes Pappenheimer Bodies Sickle Cells Target Cells Tear Drop Cells Ovalocytes Stomatocytes [place] Bodies Echinocytes Acanthocytes (Spur) Rouleaux RBC Agglutinates Schistocytes Sezary Cell POC Sodium Sodium POC Potassium Potassium POC Chloride Chloride Carbon Dioxide POC Total CO2 Anion Gap POC Anion Gap POC BUN BUN Creatinine POC Creatinine Est Cr Clr Drug Dosing eGFR BUN/Creatinine Ratio Glucose POC Glucose (other) Lactate 1.6 Calcium POC Ioniz Calcium Umu Magnesium Total Bilirubin Direct Bilirubin AST ALT Alkaline Phosphatase Troponin I High Sens 12.4 Total Protein Albumin Procalcitonin Urine Color Urine Appearance Urine pH Ur Specific [place] Urine Protein Urine Glucose (UA) Urine Ketones Urine Blood Urine Nitrite Urine Bilirubin Urine Urobilinogen Ur Leukocyte Esterase Urine WBC (Auto) Urine RBC (Auto) U Hyaline Cast (Auto) U Epithel Cells (Auto) Urine Bacteria (Auto) Urine Comment Blood Parasites ID PG Care Time/CCT Total # of Minutes Spent Total Time Spent with Patient: Total time spent is greater than 50% in coordination of care (as documented) at patient's floor/unit and/or counseling patient: Coding Level of Care Code 10629 INT INP/OBS CARE 2/55MIN Diagnoses Chest pain R07.9 Acute UTI N39.0 S/P coronary artery stent placement Z95.5 Chronic heart failure with preserved ejection fraction I50.32 Multiple sclerosis G35 Paroxysmal atrial flutter I48.92 Time Spent (min) 55
[2025-06-13] MEDS: HEPARIN SOD (PORCINE) 1000 UNIT/ML IV ONE ×2 (09:32→17:17)
[2025-06-13] MEDS: HEPARIN 25000 UNIT/500 ML D5W 25,000 UNITS/500 ML BAG IV SCH (09:32)
[2025-06-13] MEDS: Heparin IV Adult Wt-Based Low-Dose w/ INITIAL Bolus Protocol IV STA (09:35)
[2025-06-13 10:07] LABS: INR 1.1 (0.9-1.1); Partial Thromboplastin Time 53 Seconds (21-31); Prothrombin Time 12.3 Seconds (9.0-12.0)
[2025-06-13 12:14] LABS: Lipase 61.0 U/L (11-82); Magnesium 1.9 mg/dl (1.7-2.4)
[2025-06-13] MEDS: PRAMIPEXOLE DIHYDROCHLO 0.5 MG TAB PO SCH (12:14)
[2025-06-13] MEDS: ASPIRIN 81 MG ECTAB PO SCH (12:21)
[2025-06-13] MEDS: CLOPIDOGREL BISULFATE 75 MG TAB PO SCH (12:21)
[2025-06-13] MEDS: ISOSORBIDE MONO EXTENDED REL 30 MG TABCR PO ONE (12:21)
[2025-06-13] MEDS: MAGNESIUM OXIDE 400 MG TAB PO SCH (12:22)
[2025-06-13] MEDS: ROSUVASTATIN CALCIUM 20 MG TAB PO SCH (12:22)
[2025-06-13] MEDS: METOPROLOL SUCC 50MG EXT REL TAB PO SCH (12:22)
[2025-06-13] MEDS: EZETIMIBE 10 MG TAB PO SCH (12:22)
[2025-06-13] MEDS: FUROSEMIDE 20 MG TAB PO SCH (12:23)
[2025-06-13] MEDS: BACLOFEN 10 MG TAB PO SCH ×2 (13:02→14:15)
[2025-06-13] MEDS: LIDOCAINE 5% 1 PATCH TD PRN (14:14)
--- NOTE | 2025-06-13 14:26 | Cardiology Consultation ---
Date of Consultation June 13, 2025 Assessment & Plan (1) Chest pain: (2) Sinus tachycardia: (3) Coronary artery disease: Plan 1. Chest pain: She may have angina, it does not appear that she has an acute coronary syndrome. I would treat this with antianginals (I am going up on the beta-silviano, we can use nitrates). Probably consistent with her known disease. 2. Sinus tachycardia: She does have significant tachycardia and hypertension, this may be due to her urinary issues. I would treat her tachycardia, I am going to go up on her metoprolol to 200 mg daily and give her an additional 50 mg dose today. She has very little diurnal heart rate variability and this is suggestive of a high catecholamine state. If her blood pressure continues to be elevated addition of nitrates would be reasonable as that will also help with ischemia which may be present, however that will not help her heart rate. 3. Coronary disease: She has known coronary artery disease, including recent myocardial infarction. I do not think there is any indication for urgent catheterization today. Her electrocardiogram from early this morning shows what look like ischemic inferior changes, however that is probably on the basis of demand ischemia and her known right coronary artery disease. I would follow her symptomatically and try to control her heart rate and blood pressure for the time being. History of Present Illness Reason for Consultation: Chest pain, elevated troponin Attending Physician: Sage Fitzpatrick DO History of Present Illness This is a 69-year-old woman with a history of diabetes, multiple sclerosis and who was very recently hospitalized for an NSTEMI. She had a history of known multivessel coronary artery disease and presented with chest discomfort and troponin elevation on May 28, 2025. Echocardiography showed normal left ventricular size and function. Her high sensitive troponin peaked at 5100. She went on to have catheterization on May 29, 2025 where she had severe coronary disease involving the mid right coronary artery posterolateral branch and moderate to severe in-stent restenosis of the mid LAD and mid RCA stents. She had angioplasty of the mid RCA performed but intervention in the right posterolateral branch (which I believe was a suspected cause of her presentation) could not be accessed. Her postprocedural electrocardiogram was essentially normal. She was discharged on May 31, 2025 with plans for aggressive medical management of her known coronary disease. She presents now with chest discomfort and tachycardia as well as urinary symptoms. Her electrocardiogram on presentation showed sinus tachycardia at 128 bpm with inferior T wave inversion. The T wave inversion was more pronounced than on her recent electrocardiograms even after her stent placement. This could however represent evolution of her prior infarction. Other electrocardiograms this admission included 1 this morning at 0634 which suggested some inferior ST elevation with lateral ST depression, a repeat this morning at 908 shows sinus tachycardia with resolution of these changes but there is inferior T wave inversion. Her high-sensitivity troponin however is not significantly elevated, ranging from 12.4-15.6. An echocardiogram done June 13, 2025 is technically limited but shows normal left ventricular systolic function with moderate concentric left ventricular hypertrophy At the time my evaluation she was not complaining of chest discomfort, it is not clear to me how active she has been. Allergies Allergy/AdvReac Type Severity Reaction Status Date / Time bee venom protein (honey bee) Allergy Severe DIFFICULTY Verified 05/28/25 18:58 BREATHING/HIVES/ITCHY Home Medications Medication Instructions Recorded Confirmed Type aspirin 81 mg tablet,delayed 81 mg PO DAILY 07/06/20 06/13/25 History release (Adult Low Dose Aspirin) clopidogrel 75 mg tablet (Plavix) 75 mg PO DAILY #90 tabs 10/07/24 06/13/25 Rx insulin glargine 100 unit/mL 5 unit (0.05 mL) SC DAILY #0 mL 11/04/24 06/13/25 Rx subcutaneous solution (Lantus U-100 Insulin) magnesium oxide 400 mg (241.3 mg 400 mg PO QAM #0 tabs 11/04/24 06/13/25 Rx magnesium) tablet lidocaine 4 % topical patch 1 patch topical DAILY PRN Pain 11/18/24 06/13/25 History acetaminophen 500 mg tablet 1,000 mg PO Q8H PRN Pain 11/27/24 06/13/25 History (Tylenol Extra Strength) metoprolol succinate 100 mg 150 mg PO DAILY 11/27/24 06/13/25 History tablet,extended release 24 hr furosemide 20 mg tablet 20 mg PO Q OTHER DAY 02/06/25 06/13/25 History rosuvastatin 40 mg tablet 40 mg PO DAILY 02/06/25 06/13/25 History rotigotine 1 mg/24 hour 1 patch transdermal DAILY 02/06/25 06/13/25 History transdermal 24 hour patch (Neupro) baclofen 10 mg tablet 10 mg PO TID #180 tabs 05/26/25 06/13/25 Rx pramipexole 0.25 mg tablet 0.5 mg PO BID 05/28/25 06/13/25 History amlodipine 2.5 mg tablet 2.5 mg PO DAILY #30 tabs 05/31/25 06/13/25 Rx lisinopril 20 mg tablet 40 mg (2 x 20 mg) PO DAILY 30 days 05/31/25 06/13/25 Rx #90 tabs ezetimibe 10 mg tablet 10 mg PO DAILY 06/13/25 06/13/25 History semaglutide 0.25 mg or 0.5 mg (2 0.25 mg subcut WK 06/13/25 06/13/25 History mg/3 mL) subcutaneous pen injector (Ozempic) Patient History Medical History Acute UTI Coronary artery disease Surgical History History of lumbar surgery L4-5 discectomy Social History Smoking Status: Never smoker Tobacco Type: Cigarettes Second Hand Exposure: No; Do You Dip or Chew Tobacco: No; Hx Alcohol Use: No Hx Substance Use: No Preferred Language: [place] Communication Ability: Effective Visual Impairment: Limited Hearing Ability: Hard of Hearing Steamer Gum Candy Required: No Beliefs That Will Affect Care: None marital status: Current Living Situation: Spouse and Family Current Living Situation Comment: With older grandkids current occupational status: retired Feels Safe at Home: Yes Assistive Devices: Glasses, Walker and Wheelchair Physical Exam Physical Exam: Constitutional: Alert, cooperative and in no distress. She appears very sleepy. HEENT: Unremarkable Neck: No jugular venous distention, carotid pulses are normal and equal bilaterally without bruits. Pulmonary: Clear to auscultation bilaterally. Cardiac: Regular rhythm with no murmur, gallop or rub. Abdomen: Soft, nontender with normal bowel sounds. Extremities: No edema. Neurologic: No focal findings. Skin: No rash, ecchymoses or petechiae. Results & Data Vital Signs (Past 12 Hours) Vital Signs Temp Pulse Pulse Resp BP BP Pulse Ox 06/13/25 13:36 127 H 06/13/25 12:07 141 H 06/13/25 11:20 06/13/25 11:20 37.8 C H 133 H 20 163/86 H 97 06/13/25 11:20 06/13/25 10:48 132 H 26 H 177/95 H 94 06/13/25 10:42 132 H 26 H 177/95 H 94 06/13/25 10:33 129 H 25 H 177/112 H 94 06/13/25 09:27 127 H 26 H 93 06/13/25 09:12 125 H 24 93 06/13/25 09:00 175/100 H 06/13/25 09:00 175/100 H 06/13/25 09:00 127 H 25 H 93 06/13/25 08:51 123 H 24 93 06/13/25 08:33 130 H 26 H 156/92 H 93 06/13/25 08:30 156/92 H 06/13/25 08:22 121 H 146/89 H 06/13/25 08:00 126 H 24 146/89 H 92 06/13/25 06:46 141 H 198/103 H 06/13/25 06:27 135 H 06/13/25 06:15 135 H 27 H 193/98 H 93 06/13/25 06:00 150 H 20 205/110 H 95 06/13/25 06:00 132 H 23 187/103 H 92 06/13/25 05:45 129 H 23 183/107 H 96 06/13/25 05:30 136 H 23 182/101 H 95 06/13/25 05:00 133 H 18 187/107 H 94 06/13/25 04:45 129 H 18 189/105 H 95 06/13/25 04:30 129 H 18 199/114 H 95 06/13/25 04:19 134 H 23 173/108 H 94 06/13/25 03:48 134 H 23 06/13/25 03:18 95 06/13/25 03:00 128 H 18 174/93 H 94 06/13/25 02:57 37 C 123 H 22 174/93 H 96 06/13/25 02:53 128 H Pulse Ox O2 Del Method O2 Del Method O2 Flow Rate O2 Flow Rate 06/13/25 13:36 06/13/25 12:07 06/13/25 11:20 Nasal Cannula 2 06/13/25 11:20 Nasal Cannula 2 06/13/25 11:20 97 Nasal Cannula 2 06/13/25 10:48 Room Air 06/13/25 10:42 06/13/25 10:33 06/13/25 09:27 06/13/25 09:12 06/13/25 09:00 06/13/25 09:00 06/13/25 09:00 06/13/25 08:51 06/13/25 08:33 06/13/25 08:30 06/13/25 08:22 06/13/25 08:00 06/13/25 06:46 06/13/25 06:27 06/13/25 06:15 Room Air 06/13/25 06:00 Room Air 06/13/25 06:00 Room Air 06/13/25 05:45 06/13/25 05:30 06/13/25 05:00 Room Air 06/13/25 04:45 Room Air 06/13/25 04:30 Room Air 06/13/25 04:19 Room Air 06/13/25 03:48 06/13/25 03:18 Room Air 06/13/25 03:00 Room Air 06/13/25 02:57 Room Air 06/13/25 02:53 Laboratory Results Cardiac Enzymes 06/13/25 06/13/25 06/13/25 Range/Units 04:58 07:41 13:39 AST 21 (13-39) U/L Troponin I High Sens 14.6 H 12.4 15.6 H (0-14) pg/ml Coagulation 06/13/25 Range/Units 09:25 PT 12.3 H (9.0-12.0) Seconds APTT 53 H (21-31) Seconds CBC 06/13/25 06/13/25 Range/Units 04:58 07:40 WBC Cancelled 8.52 RBC Cancelled 4.36 Hgb Cancelled 11.1 L Hct Cancelled 34.7 L Plt Count Cancelled 243 Neut # (Auto) Cancelled 6.85 H Lymph # (Auto) Cancelled 0.89 L [place] # (Auto) Cancelled 0.65 H Eos # (Auto) Cancelled 0.06 Baso # (Auto) Cancelled 0.04 Comprehensive Metabolic Panel 06/13/25 Range/Units 04:58 Sodium 137 (136-145) mmol/L Potassium 4.5 (3.5-5.1) mmol/L Chloride 105 (98-107) mmol/L Carbon Dioxide 23 (21-32) mmol/L BUN 23 (6-23) mg/dl Creatinine 0.97 (0.6-1.2) mg/dl Glucose 144 H (70-99(Fasting)) mg/dl Calcium 8.9 (8.6-10.3) mg/dl Direct Bilirubin 0.1 (0-0.2) mg/dl AST 21 (13-39) U/L ALT 22 (7-52) U/L Alkaline Phosphatase 70 (34-104) U/L Total Protein 6.4 (6.0-8.3) gm/dl Albumin 3.5 (3.4-5.0) gm/dl Intake and Output 06/12/25 06/13/25 06/13/25 22:59 06:59 14:59 Intake Total 1600 / 1600 705 / 705 Output Total 100 / 100 Balance 1500 / 1500 705 / 705 Intake: IV 1600 / 1600 645 / 645 Magnesium Sulfate / D5w 1 gm In 200 / 200 100 ml @ 50 mls/hr IV Q2H [facility] Rx#:[id number] Piperacillin/Tazobactam 4.5 gm 100 / 100 In 100 ml @ 200 mls/hr IV NOW ONE Rx#:[id number] Sodium Chloride 0.9% 1,000 ml @ 1000 / 1000 999 mls/hr IV .Q1H1M [facility] Rx#: [id number] Sodium Chloride 0.9% 500 ml @ 500 / 500 395 / 395 75 mls/hr IV .Q6H40M [facility] Rx#: [id number] cefTRIAXone SODIUM 2,000 mg In 50 / 50 50 ml @ 100 mls/hr IV Q24H [facility] Rx#:[id number] Oral 0 / 0 60 / 60 Output: Urine 0 / 0 Urine Amount (Catheter) 100 / 100 3-way Urethral 100 / 100 Other: Weight 86.3 kg 85 kg Weight Measurement Method Built in [facility] Built in [facility] Patient Weight 06/14/25 06:59 Weight 85 kg Diagnostic Findings Telemetry: Sinus tachycardia, very little heart rate variability. PG Care Time/CCT Total # of Minutes Spent Total Time Spent with Patient: Total time spent is greater than 50% in coordination of care (as documented) at patient's floor/unit and/or counseling patient: Coding Level of Care Code 64481 INT INP/OBS CARE 375MIN Diagnoses Chest pain R07.9 Sinus tachycardia R00.0 Coronary artery disease I25.10
[2025-06-13] MEDS: OPTIRAY 320 125ml IV ONE (14:53)
[2025-06-13] MEDS ORDERED: PHENAZOPYRIDINE HCL 100 MG TAB PO PRN (15:15)
[2025-06-13] MEDS: METOPROLOL SUCC 50MG EXT REL TAB PO STA (15:27)
[2025-06-13] MEDS: TAMSULOSIN HCL 0.4 MG CAP PO ONE (15:27)
[2025-06-13] MEDS: MoRPHine SULFATE 2 MG/ML CARP IV PRN (15:53)
[2025-06-13 16:03] LABS: ANTI-Xa, UFH(UnfractionatedHep 0.16 IU/ml (0.3-0.7)
--- NOTE | 2025-06-13 16:28 | Communication Note ---
Date of Service: June 13, 2025 she's mentioned to the nurse about lower abdominal pain on physical exam; tenderness to palpitation but no rebound tenderness she is a limited historian and unable to provide any detail hx CT abdomen and pelvis to r/o perforation c/w jerry
[2025-06-13 17:06] LABS: Hematocrit (blood only) 37.1 % (37.0-47.0); Hemoglobin 12.5 g/dl (12.0-16.0); Mean Corpuscular Hemoglobin 26.9 pg (25.0-34.0); Mean Corpuscular Volume 79.8 fL (80.0-100.0); Platelet Count 263 K/uL (130-400); RDW Standard Deviation 45.5 fL (36.4-46.3); Red Blood Count 4.65 M/uL (4.20-5.40); White Blood Count 10.78 K/ul (4.8-10.8)
[2025-06-13] MEDS: ISOSORBIDE MONO EXTENDED REL 60 MG TABCR PO SCH (17:20)
[2025-06-13 17:25] LABS: Alanine Aminotransferase 20.0 U/L (7-52); Albumin Globulin Ratio 1.1 (0.9-2); Alkaline Phosphatase 70.0 U/L (34-104); Anion Gap 10.0 (3-11); Bilirubin,Total 0.6 mg/dl (0.2-1.0); Blood Urea Nitrogen 15.0 mg/dl (6-23); Calcium 8.9 mg/dl (8.6-10.3); Carbon Dioxide 23.0 mmol/L (21-32); Chloride 101.0 mmol/L (98-107); Creatinine Clr Calc Pharmacy 51.6 ml/min; Globulin 3.5 gm/dl (2.5-4.0); Glucose 207.0 mg/dl (70-99(Fasting)); Lipase 57.0 U/L (11-82); Potassium 4.3 mmol/L (3.5-5.1); Sodium 134.0 mmol/L (136-145); Total Protein 7.2 gm/dl (6.0-8.3)
--- NOTE | 2025-06-13 17:50 | CT Scan Report ---
CT pulmonary angiogram with IV contrast History: Chest pain COMPARISON: None TECHNIQUE: CT angiography of the chest was performed without IV contrast followed by IV contrast, including 3D post processing CTA image reconstruction. Dose reduction techniques were achieved by using automatic exposure control and/or adjustment of mA and/or kV according to patient size and/or use of iterative reconstruction technique. FINDINGS: Diagnostic quality: Adequate There is no evidence for pulmonary embolism. The heart is not enlarged. There is no pericardial effusion. There are no abnormally enlarged hilar or mediastinal lymph nodes. The central tracheobronchial tree is clear. The lungs are clear. There is no pleural effusion. Limited visualized upper abdomen. No destructive osseous changes are seen. IMPRESSION: No evidence for pulmonary embolism. No evidence for aortic dissection. Electronically signed by Carlos Enrique Esparza 06-13-2025 5:49 PM
[2025-06-13] MEDS: PIPERACILLIN/TAZOBACTAM 4.5 GM/100 ML BAG IV SCH (17:59)
--- NOTE | 2025-06-13 18:54 | CT Scan Report ---
EXAMINATION: CT of the abdomen and pelvis performed without contrast TECHNIQUE: Helical CT images from the lung bases through the symphysis pubis were obtained without contrast. Coronal and sagittal reformatted images were generated at a workstation for further assessment. Dose reduction techniques were achieved by using automatic exposure control and/or adjustment of mA and/or kV according to patient size and/or use of iterative reconstruction technique. COMPARISON: 05/29/2025 HISTORY: Abdominal pain FINDINGS: Lower chest: No consolidation. No pleural effusion or pneumothorax. Heavy coronary calcification seen. Small cardial effusion similar to prior Liver: No suspicious liver lesions. Hepatic steatosis/hepatomegaly. Gallbladder: No gallstones. No evidence of acute cholecystitis. Spleen: Normal size. Pancreas: No suspicious pancreatic lesions. The pancreatic duct is not dilated. Adrenal glands: No adrenal nodules. Kidneys: No hydronephrosis or obstructing renal stones. Contrast excretion in the renal collecting systems and ureters. Bladder / Pelvic organs: There is inflammatory fat stranding about the urinary bladder. The uterus is present, demonstrating fibroids. No suspicious adnexal mass.. Bowel: No bowel obstruction. No abnormal bowel wall thickening. The appendix is unremarkable. Lymph nodes: No retroperitoneal, mesenteric, or pelvic lymphadenopathy. Peritoneum / Retroperitoneum: No free fluid or air within the abdomen. Vessels: No infrarenal aortic aneurysm. Heavy aortoiliac calcification. Bones and soft tissues: No suspicious lesion in the bones. IMPRESSION: Inflammatory fat stranding surrounding the urinary bladder, suggesting cystitis. Electronically signed by Carlos Enrique Esparza 06-13-2025 6:54 PM
[2025-06-13 23:44] LABS: Base Excess VBG 0.3 mEq/L; HCO3 VBG 24 mmol/L; Oxygen Saturation VBG 70.5 %; PCO2 VBG 33 mmHg (38-50); PO2 VBG 40 mmHg; pH VBG 7.46 (7.36-7.41)
[2025-06-13 23:55] LABS: Hematocrit (blood only) 35.2 % (37.0-47.0); Hemoglobin 11.0 g/dl (12.0-16.0); Mean Corpuscular Hemoglobin 25.8 pg (25.0-34.0); Mean Corpuscular Volume 82.4 fL (80.0-100.0); Platelet Count 192 K/uL (130-400); RDW Standard Deviation 48.4 fL (36.4-46.3); Red Blood Count 4.27 M/uL (4.20-5.40); White Blood Count 10.87 K/ul (4.8-10.8)
[2025-06-14 00:09] LABS: ANTI-Xa, UFH(UnfractionatedHep 0.21 IU/ml (0.3-0.7)
[2025-06-14 00:16] LABS: Anion Gap 9.0 (3-11); Calcium 8.7 mg/dl (8.6-10.3); Carbon Dioxide 23.0 mmol/L (21-32); Chloride 102.0 mmol/L (98-107); Potassium 4.4 mmol/L (3.5-5.1); Sodium 134.0 mmol/L (136-145)
[2025-06-14 00:21] LABS: Blood Urea Nitrogen 18.0 mg/dl (6-23); Creatinine Clr Calc Pharmacy 40.6 ml/min; Glucose 229.0 mg/dl (70-99(Fasting))
[2025-06-14] MEDS: ACETAMINOPHEN 1,000 MG/100 ML VIAL IV STA (06:27)
[2025-06-14 06:55] LABS: Hematocrit (blood only) 33.6 % (37.0-47.0); Hemoglobin 11.2 g/dl (12.0-16.0); Mean Corpuscular Hemoglobin 26.8 pg (25.0-34.0); Mean Corpuscular Volume 80.4 fL (80.0-100.0); Platelet Count 276 K/uL (130-400); RDW Standard Deviation 47.0 fL (36.4-46.3); Red Blood Count 4.18 M/uL (4.20-5.40); White Blood Count 9.60 K/ul (4.8-10.8)
[2025-06-14 07:04] LABS: ANTI-Xa, UFH(UnfractionatedHep 0.25 IU/ml (0.3-0.7)
--- NOTE | 2025-06-14 07:24 | XCELERA ---
[id number]
[2025-06-14 07:40] LABS: Alanine Aminotransferase 17.0 U/L (7-52); Albumin Globulin Ratio 1.0 (0.9-2); Alkaline Phosphatase 57.0 U/L (34-104); Anion Gap 10.0 (3-11); Bilirubin,Total 0.6 mg/dl (0.2-1.0); Blood Urea Nitrogen 20.0 mg/dl (6-23); Calcium 8.9 mg/dl (8.6-10.3); Carbon Dioxide 24.0 mmol/L (21-32); Chloride 102.0 mmol/L (98-107); Creatinine Clr Calc Pharmacy 38.9 ml/min; Globulin 3.4 gm/dl (2.5-4.0); Glucose 184.0 mg/dl (70-99(Fasting)); Potassium 3.9 mmol/L (3.5-5.1); Sodium 136.0 mmol/L (136-145); Total Protein 6.9 gm/dl (6.0-8.3)
[2025-06-14] MEDS: SODIUM CHLORIDE 0.9% 500 ML IV ONE ×2 (07:48→08:30)
[2025-06-14] MEDS: METOPROLOL SUCC 50MG EXT REL TAB PO SCH ×2 (07:51→17:59)
[2025-06-14] MEDS: SODIUM CHLORIDE 0.9% 500 ML IV SCH (08:38)
--- NOTE | 2025-06-14 11:33 | Hospitalist Progress Note ---
Date of Service June 14, 2025 Assessment & Plan (1) Chest pain: Plan: Lillian Anders is a 69 yo woman with PMH of CAD, A-flutter, chronic CHFpEF, diabetes (off insulin), MS, lumbar desk disorder for her CAD; has prior LAD, RCA, PLB. from 05/28--05/31, was here for NSTEMI , s/p LHC and found moderate to severe in stent re-stenosis of mid LAD and mid RCA stents also found 95% stenosis of prixmal PLB and s/p angioplasty of proximal right PLB with 1.5mm balloon, our talent partner noted difficulty to large balloon across distal RCA in stent restenosis. she was on heparin infusion and then dc on 05/31/2025 with aspirin plavix, and also on metoprolol 150mg, crestor 40mg, and lasix every other day on 06/13/2025, she's return to our hospital with chest pain episode and HR of 150. started for ceftriaxone, imdur for unstable angina, heparin ACS dose CTA negative for dissection, PE, abdominal pain, CT abdomen negative for perforatoin perforation 06/14/2025, CARLIN, hypotensive, holding amlodipine 2.5mg, hold lisinopril given CARLIN holding metoprolol. 1. acute chest pain, unstable angina 2. UTI, suprapubic pain 3. CARLIN, hypotension 4. hx of CAD with LAD, RCA 5. recent stent to right PLB restenosis and residual severe stenosis 6. hematuria 7. CHFpEF, A-flutter 9. diabetes (no longer on insulin) 9. MS 10. umbar disk disease 1. acute chest pain, unstable angina CTA negative for PE or dissection heparin ACS dose, monitor for hematuria imdur 60mg daily for symptomatic control f/u duplex US appreciate cardiology eval for repeat LHC versus medical management 2. UTI, suprapubic discomfort, she's on antibiotics, zosyn, pyridium for dysuria, CT abdomen negative for bowel perforation 3. CARLIN, hypotension occured on 06/14, holding amlodipine, lisinopril 40mg, and metoprolol 4. lower extremity edema, duplex US 3. hx of multivessel CAD c/w aspirin, plavix, crestor potential increased metoprolol from 150mg ER to high dose and add imdur for symptomatic management . CHFpEF. A-flutter her home med is metoprolol 150mg and Crestor 40mg lasix every other day multiple sclerosis , c/w baclofen 10mg TID, neupro 1mg/24 patch 24 hours pramipexole 0.2m5 BID . hypomagnesium -magnesium 400mg daily (2) Acute UTI: (3) S/P coronary artery stent placement: (4) Chronic heart failure with preserved ejection fraction: (5) Multiple sclerosis: (6) Paroxysmal atrial flutter: Admission and Anticipated Discharge Date Admission Date: June 13, 2025 Subjective she has hypotension episode this morning (BP of 88), s/p IV fluid 500cc and NS in CARLIN, lisinoripl being held her metoprolol, amlodipine are all held for her UTI, on zosyn and abdominal pain and dysuria resolved do not expect dc sooner than Sunday dc barrier ongoing HD instability, CARLIN, need for cardiac optimization and daughter updated discussed about need for cardiac optimization and treatment of UTI discussed about need for discussion with private blow up operator with she's failed medical management for unstable angina Physical Exam Physical Exam: VITALS: Reviewed. WEIGHT/BMI reviewed. GEN: Healthy appearing, well-developed, NAD. PSYCH:. Normal memory, mood, and affect. HEENT -Head: NC/AT; -Mouth and throat: MMM. Normal gums, muc gloria, palate,. Good dentition. NECK: Supple, with no masses. CV: RRR, no m/r/g. LUNGS: CTAB, no w/r/c. on 2 liter oxygen; congested breath sound ABD: Soft, NT/ND, NBS, no masses or organomegaly. tenderness resolved; normoactive bowel sund : N/A MSK: No deformities, Normal gait. EXT: No clubbing, cyanosis, or edema. NEURO: Ambulating with no limitations. Normal muscle strength and tone. No focal deficits. Results & Data Results & Data Vital Signs (Past 12 Hours) Vital Signs Temp Pulse Resp BP BP Pulse Ox O2 Del Method 06/14/25 11:00 06/14/25 09:30 108 H 99/63 L 06/14/25 08:22 Nasal Cannula 06/14/25 07:32 37.0 C 121 H 20 89/50 L 81/47 L 93 Nasal Cannula 06/14/25 02:54 37.3 C 120 H 18 114/59 L 95 Nasal Cannula O2 Del Method O2 Flow Rate O2 Flow Rate 06/14/25 11:00 Nasal Cannula 2 06/14/25 09:30 06/14/25 08:22 2 06/14/25 07:32 2 06/14/25 02:54 2 Laboratory Results Laboratory Results - last 72 hr 06/13/25 06/13/25 06/13/25 04:58 05:00 05:23 WBC Cancelled RBC Cancelled Hgb Cancelled POC Hgb 11.6 L Hct Cancelled POC Hct 34 L MCV Cancelled MCH Cancelled MCHC Cancelled RDW Std Deviation Cancelled RDW Coeff of Marshall Cancelled Plt Count Cancelled MPV Cancelled Immature Gran % (Auto) Cancelled Neut % (Auto) Cancelled Lymph % (Auto) Cancelled [place]aden % (Auto) Cancelled Eos % (Auto) Cancelled Baso % (Auto) Cancelled Neut # (Auto) Cancelled Lymph # (Auto) Cancelled [place] # (Auto) Cancelled Eos # (Auto) Cancelled Baso # (Auto) Cancelled Immature Gran # (Auto) Cancelled Absolute Nucleated RBC Cancelled Nucleated RBC % (auto) Cancelled Neutrophils % (Manual) Cancelled Band Neutrophils % Cancelled Lymphocytes % (Manual) Cancelled Prolymphocyte % Cancelled Reactive Lymphs % (Man) Cancelled Monocytes % (Manual) Cancelled Eosinophils % (Manual) Cancelled Basophils % (Manual) Cancelled Metamyelocytes % (Man) Cancelled Myelocytes % (Man) Cancelled Promyelocytes % (Man) Cancelled Blast Cells % (Manual) Cancelled Plasma Cell % (Manual) Cancelled Other Cells % Cancelled Nucleated RBC % Cancelled Neutrophils # (Manual) Cancelled Band Neutrophils # Cancelled Total Absolute Neuts Cancelled Lymphocytes # (Manual) Cancelled Prolymphocyte # Cancelled Reactive Lymphs # Cancelled Total Abs Lymphocytes Cancelled Monocytes # (Manual) Cancelled Eosinophils # (Manual) Cancelled Basophils # (Manual) Cancelled Metamyelocytes # (Man) Cancelled Myelocytes # (Manual) Cancelled Promyelocytes # (Man) Cancelled Blast Cells # (Man) Cancelled Plasma Cell # (Manual) Cancelled Other Cells # Cancelled Nucleated RBCs # (Man) Cancelled Hypersegmented Neuts Cancelled Hyposegmented Neuts Cancelled Hypogranular Neuts Cancelled Large Granular Lymphs Cancelled # Lrg Granular Lymphs Cancelled Hairy Cells Cancelled Smudge Cells Cancelled Toxic Granulation Cancelled Toxic Vacuolation Cancelled Dohle Bodies Cancelled Bety Rods Cancelled Platelet Estimate Cancelled Hypogranular Platelets Cancelled Giant Platelets Cancelled Platelet Satelliting Cancelled RBC Morphology Cancelled Polychromasia Cancelled Hypochromasia Cancelled Poikilocytosis Cancelled Basophilic Stippling Cancelled Anisocytosis Cancelled Microcytosis Cancelled Macrocytosis Cancelled Spherocytes Cancelled Pappenheimer Bodies Cancelled Sickle Cells Cancelled Target Cells Cancelled Tear Drop Cells Cancelled Ovalocytes Cancelled Stomatocytes Cancelled Ely-Klamath Bodies Cancelled Echinocytes Cancelled Acanthocytes (Spur) Cancelled Rouleaux Cancelled RBC Agglutinates Cancelled Schistocytes Cancelled Sezary Cell Cancelled PT INR APTT PTT Ratio Heparin Anti-Xa, Unfract VBG pH VBG pCO2 VBG pO2 VBG HCO3 VBG O2 Saturation VBG Base Excess POC Sodium 136 Sodium 137 POC Potassium 4.5 Potassium 4.5 POC Chloride 109 Chloride 105 Carbon Dioxide 23 POC Total CO2 18 L Anion Gap 9 POC Anion Gap 15.0 L POC BUN 25 H BUN 23 Creatinine 0.97 POC Creatinine 1.1 Est Cr Clr Drug Dosing 57.4 eGFR 64.05 BUN/Creatinine Ratio 23.7 H Glucose 144 H POC Glucose POC Glucose (other) 151 H Lactate Calcium 8.9 POC Ioniz Calcium Umu 0.92 L Magnesium 1.7 Total Bilirubin 0.5 Direct Bilirubin 0.1 AST 21 ALT 22 Alkaline Phosphatase 70 Troponin I High Sens 14.6 H Total Protein 6.4 Albumin 3.5 Globulin Albumin/Globulin Ratio Lipase Procalcitonin 0.15 Urine Color Yellow Urine Appearance Turbid A Urine pH 6.0 Ur Specific [place] 1.008 Urine Protein 1+ H Urine Glucose (UA) Negative Urine Ketones Negative Urine Blood 2+ H Urine Nitrite Negative Urine Bilirubin Negative Urine Urobilinogen Negative Ur Leukocyte Esterase 3+ H Urine WBC (Auto) >50 H Urine RBC (Auto) 11-20 H U Hyaline Cast (Auto) 0-2 U Epithel Cells (Auto) 0-2 Urine Bacteria (Auto) 4+ H Urine Comment Blood Parasites ID Cancelled 06/13/25 06/13/25 06/13/25 07:40 07:41 09:25 WBC 8.52 RBC 4.36 Hgb 11.1 L POC Hgb Hct 34.7 L POC Hct MCV 79.6 L MCH 25.5 MCHC 32.0 RDW Std Deviation 45.0 RDW Coeff of Marshall 15.7 H Plt Count 243 MPV 9.5 Immature Gran % (Auto) 0.4 Neut % (Auto) 80.4 Lymph % (Auto) 10.4 Bladen % (Auto) 7.6 Eos % (Auto) 0.7 Baso % (Auto) 0.5 Neut # (Auto) 6.85 H Lymph # (Auto) 0.89 L Bladen # (Auto) 0.65 H Eos # (Auto) 0.06 Baso # (Auto) 0.04 Immature Gran # (Auto) 0.03 Absolute Nucleated RBC Nucleated RBC % (auto) Neutrophils % (Manual) Band Neutrophils % Lymphocytes % (Manual) Prolymphocyte % Reactive Lymphs % (Man) Monocytes % (Manual) Eosinophils % (Manual) Basophils % (Manual) Metamyelocytes % (Man) Myelocytes % (Man) Promyelocytes % (Man) Blast Cells % (Manual) Plasma Cell % (Manual) Other Cells % Nucleated RBC % Neutrophils # (Manual) Band Neutrophils # Total Absolute Neuts Lymphocytes # (Manual) Prolymphocyte # Reactive Lymphs # Total Abs Lymphocytes Monocytes # (Manual) Eosinophils # (Manual) Basophils # (Manual) Metamyelocytes # (Man) Myelocytes # (Manual) Promyelocytes # (Man) Blast Cells # (Man) Plasma Cell # (Manual) Other Cells # Nucleated RBCs # (Man) Hypersegmented Neuts Hyposegmented Neuts Hypogranular Neuts Large Granular Lymphs # Lrg Granular Lymphs Hairy Cells Smudge Cells Toxic Granulation Toxic Vacuolation Dohle Bodies Bety Rods Platelet Estimate Hypogranular Platelets Giant Platelets Platelet Satelliting RBC Morphology Polychromasia Hypochromasia Poikilocytosis Basophilic Stippling Anisocytosis Microcytosis Macrocytosis Spherocytes Pappenheimer Bodies Sickle Cells Target Cells Tear Drop Cells Ovalocytes Stomatocytes Ely-Klamath Bodies Echinocytes Acanthocytes (Spur) Rouleaux RBC Agglutinates Schistocytes Sezary Cell PT 12.3 H INR 1.1 APTT 53 H PTT Ratio 2.0 Heparin Anti-Xa, Unfract VBG pH VBG pCO2 VBG pO2 VBG HCO3 VBG O2 Saturation VBG Base Excess POC Sodium Sodium POC Potassium Potassium POC Chloride Chloride Carbon Dioxide POC Total CO2 Anion Gap POC Anion Gap POC BUN BUN Creatinine POC Creatinine Est Cr Clr Drug Dosing eGFR BUN/Creatinine Ratio Glucose POC Glucose POC Glucose (other) Lactate 1.6 Calcium POC Ioniz Calcium Umu Magnesium 1.9 Total Bilirubin Direct Bilirubin AST ALT Alkaline Phosphatase Troponin I High Sens 12.4 Total Protein Albumin Globulin Albumin/Globulin Ratio Lipase 61 Procalcitonin Urine Color Urine Appearance Urine pH Ur Specific [place] Urine Protein Urine Glucose (UA) Urine Ketones Urine Blood Urine Nitrite Urine Bilirubin Urine Urobilinogen Ur Leukocyte Esterase Urine WBC (Auto) Urine RBC (Auto) U Hyaline Cast (Auto) U Epithel Cells (Auto) Urine Bacteria (Auto) Urine Comment Blood Parasites ID 06/13/25 06/13/25 06/13/25 13:39 15:20 16:56 WBC 10.78 RBC 4.65 Hgb 12.5 POC Hgb Hct 37.1 POC Hct MCV 79.8 L MCH 26.9 MCHC 33.7 RDW Std Deviation 45.5 RDW Coeff of Marshall 15.7 H Plt Count 263 MPV 9.6 Immature Gran % (Auto) Neut % (Auto) Lymph % (Auto) Bladen % (Auto) Eos % (Auto) Baso % (Auto) Neut # (Auto) Lymph # (Auto) Bladen # (Auto) Eos # (Auto) Baso # (Auto) Immature Gran # (Auto) Absolute Nucleated RBC Nucleated RBC % (auto) Neutrophils % (Manual) Band Neutrophils % Lymphocytes % (Manual) Prolymphocyte % Reactive Lymphs % (Man) Monocytes % (Manual) Eosinophils % (Manual) Basophils % (Manual) Metamyelocytes % (Man) Myelocytes % (Man) Promyelocytes % (Man) Blast Cells % (Manual) Plasma Cell % (Manual) Other Cells % Nucleated RBC % Neutrophils # (Manual) Band Neutrophils # Total Absolute Neuts Lymphocytes # (Manual) Prolymphocyte # Reactive Lymphs # Total Abs Lymphocytes Monocytes # (Manual) Eosinophils # (Manual) Basophils # (Manual) Metamyelocytes # (Man) Myelocytes # (Manual) Promyelocytes # (Man) Blast Cells # (Man) Plasma Cell # (Manual) Other Cells # Nucleated RBCs # (Man) Hypersegmented Neuts Hyposegmented Neuts Hypogranular Neuts Large Granular Lymphs # Lrg Granular Lymphs Hairy Cells Smudge Cells Toxic Granulation Toxic Vacuolation Dohle Bodies Bety Rods Platelet Estimate Hypogranular Platelets Giant Platelets Platelet Satelliting RBC Morphology Polychromasia Hypochromasia Poikilocytosis Basophilic Stippling Anisocytosis Microcytosis Macrocytosis Spherocytes Pappenheimer Bodies Sickle Cells Target Cells Tear Drop Cells Ovalocytes Stomatocytes Ely-Klamath Bodies Echinocytes Acanthocytes (Spur) Rouleaux RBC Agglutinates Schistocytes Sezary Cell PT INR APTT PTT Ratio Heparin Anti-Xa, Unfract 0.16 L VBG pH VBG pCO2 VBG pO2 VBG HCO3 VBG O2 Saturation VBG Base Excess POC Sodium Sodium 134 L POC Potassium Potassium 4.3 POC Chloride Chloride 101 Carbon Dioxide 23 POC Total CO2 Anion Gap 10 POC Anion Gap POC BUN BUN 15 Creatinine 1.07 POC Creatinine Est Cr Clr Drug Dosing 51.6 eGFR 56.93 BUN/Creatinine Ratio 14.0 Glucose 207 H POC Glucose POC Glucose (other) Lactate 1.8 Calcium 8.9 POC Ioniz Calcium Umu Magnesium Total Bilirubin 0.6 Direct Bilirubin AST 20 ALT 20 Alkaline Phosphatase 70 Troponin I High Sens 15.6 H Total Protein 7.2 Albumin 3.7 Globulin 3.5 Albumin/Globulin Ratio 1.1 Lipase 57 Procalcitonin Urine Color Urine Appearance Urine pH Ur Specific [place] Urine Protein Urine Glucose (UA) Urine Ketones Urine Blood Urine Nitrite Urine Bilirubin Urine Urobilinogen Ur Leukocyte Esterase Urine WBC (Auto) Urine RBC (Auto) U Hyaline Cast (Auto) U Epithel Cells (Auto) Urine Bacteria (Auto) Urine Comment Blood Parasites ID 06/13/25 06/13/25 06/13/25 23:01 23:35 23:42 WBC 10.87 H RBC 4.27 Hgb 11.0 L POC Hgb Hct 35.2 L POC Hct MCV 82.4 MCH 25.8 MCHC 31.3 L RDW Std Deviation 48.4 H RDW Coeff of [place] 16.1 H Plt Count 192 MPV 9.8 Immature Gran % (Auto) Neut % (Auto) Lymph % (Auto) Bladen % (Auto) Eos % (Auto) Baso % (Auto) Neut # (Auto) Lymph # (Auto) Bladen # (Auto) Eos # (Auto) Baso # (Auto) Immature Gran # (Auto) Absolute Nucleated RBC Nucleated RBC % (auto) Neutrophils % (Manual) Band Neutrophils % Lymphocytes % (Manual) Prolymphocyte % Reactive Lymphs % (Man) Monocytes % (Manual) Eosinophils % (Manual) Basophils % (Manual) Metamyelocytes % (Man) Myelocytes % (Man) Promyelocytes % (Man) Blast Cells % (Manual) Plasma Cell % (Manual) Other Cells % Nucleated RBC % Neutrophils # (Manual) Band Neutrophils # Total Absolute Neuts Lymphocytes # (Manual) Prolymphocyte # Reactive Lymphs # Total Abs Lymphocytes Monocytes # (Manual) Eosinophils # (Manual) Basophils # (Manual) Metamyelocytes # (Man) Myelocytes # (Manual) Promyelocytes # (Man) Blast Cells # (Man) Plasma Cell # (Manual) Other Cells # Nucleated RBCs # (Man) Hypersegmented Neuts Hyposegmented Neuts Hypogranular Neuts Large Granular Lymphs # Lrg Granular Lymphs Hairy Cells Smudge Cells Toxic Granulation Toxic Vacuolation Dohle Bodies Bety Rods Platelet Estimate Hypogranular Platelets Giant Platelets Platelet Satelliting RBC Morphology Polychromasia Hypochromasia Poikilocytosis Basophilic Stippling Anisocytosis Microcytosis Macrocytosis Spherocytes Pappenheimer Bodies Sickle Cells Target Cells Tear Drop Cells Ovalocytes Stomatocytes Ely-Klamath Bodies Echinocytes Acanthocytes (Spur) Rouleaux RBC Agglutinates Schistocytes Sezary Cell PT INR APTT PTT Ratio Heparin Anti-Xa, Unfract 0.21 L VBG pH 7.46 H VBG pCO2 33 L VBG pO2 40 VBG HCO3 24 VBG O2 Saturation 70.5 VBG Base Excess 0.3 POC Sodium Sodium 134 L POC Potassium Potassium 4.4 POC Chloride Chloride 102 Carbon Dioxide 23 POC Total CO2 Anion Gap 9 POC Anion Gap POC BUN BUN 18 Creatinine 1.36 H POC Creatinine Est Cr Clr Drug Dosing 40.6 eGFR 42.69 BUN/Creatinine Ratio 13.2 Glucose 229 H POC Glucose 232 H POC Glucose (other) Lactate Calcium 8.7 POC Ioniz Calcium Umu Magnesium Total Bilirubin Direct Bilirubin AST ALT Alkaline Phosphatase Troponin I High Sens Total Protein Albumin Globulin Albumin/Globulin Ratio Lipase Procalcitonin Urine Color Urine Appearance Urine pH Ur Specific [place] Urine Protein Urine Glucose (UA) Urine Ketones Urine Blood Urine Nitrite Urine Bilirubin Urine Urobilinogen Ur Leukocyte Esterase Urine WBC (Auto) Urine RBC (Auto) U Hyaline Cast (Auto) U Epithel Cells (Auto) Urine Bacteria (Auto) Urine Comment Blood Parasites ID 06/14/25 06:32 WBC 9.60 RBC 4.18 L Hgb 11.2 L POC Hgb Hct 33.6 L POC Hct MCV 80.4 MCH 26.8 MCHC 33.3 RDW Std Deviation 47.0 H RDW Coeff of [place] 16.1 H Plt Count 276 MPV 9.7 Immature Gran % (Auto) Neut % (Auto) Lymph % (Auto) Bladen % (Auto) Eos % (Auto) Baso % (Auto) Neut # (Auto) Lymph # (Auto) [place]aden # (Auto) Eos # (Auto) Baso # (Auto) Immature Gran # (Auto) Absolute Nucleated RBC Nucleated RBC % (auto) Neutrophils % (Manual) Band Neutrophils % Lymphocytes % (Manual) Prolymphocyte % Reactive Lymphs % (Man) Monocytes % (Manual) Eosinophils % (Manual) Basophils % (Manual) Metamyelocytes % (Man) Myelocytes % (Man) Promyelocytes % (Man) Blast Cells % (Manual) Plasma Cell % (Manual) Other Cells % Nucleated RBC % Neutrophils # (Manual) Band Neutrophils # Total Absolute Neuts Lymphocytes # (Manual) Prolymphocyte # Reactive Lymphs # Total Abs Lymphocytes Monocytes # (Manual) Eosinophils # (Manual) Basophils # (Manual) Metamyelocytes # (Man) Myelocytes # (Manual) Promyelocytes # (Man) Blast Cells # (Man) Plasma Cell # (Manual) Other Cells # Nucleated RBCs # (Man) Hypersegmented Neuts Hyposegmented Neuts Hypogranular Neuts Large Granular Lymphs # Lrg Granular Lymphs Hairy Cells Smudge Cells Toxic Granulation Toxic Vacuolation Dohle Bodies Bety Rods Platelet Estimate Hypogranular Platelets Giant Platelets Platelet Satelliting RBC Morphology Polychromasia Hypochromasia Poikilocytosis Basophilic Stippling Anisocytosis Microcytosis Macrocytosis Spherocytes Pappenheimer Bodies Sickle Cells Target Cells Tear Drop Cells Ovalocytes Stomatocytes Ely-Klamath Bodies Echinocytes Acanthocytes (Spur) Rouleaux RBC Agglutinates Schistocytes Sezary Cell PT INR APTT PTT Ratio Heparin Anti-Xa, Unfract 0.25 L VBG pH VBG pCO2 VBG pO2 VBG HCO3 VBG O2 Saturation VBG Base Excess POC Sodium Sodium 136 POC Potassium Potassium 3.9 POC Chloride Chloride 102 Carbon Dioxide 24 POC Total CO2 Anion Gap 10 POC Anion Gap POC BUN BUN 20 Creatinine 1.42 H POC Creatinine Est Cr Clr Drug Dosing 38.9 eGFR 40.54 BUN/Creatinine Ratio 14.1 Glucose 184 H POC Glucose POC Glucose (other) Lactate Calcium 8.9 POC Ioniz Calcium Umu Magnesium Total Bilirubin 0.6 Direct Bilirubin AST 16 ALT 17 Alkaline Phosphatase 57 Troponin I High Sens Total Protein 6.9 Albumin 3.5 Globulin 3.4 Albumin/Globulin Ratio 1.0 Lipase Procalcitonin Urine Color Urine Appearance Urine pH Ur Specific [place] Urine Protein Urine Glucose (UA) Urine Ketones Urine Blood Urine Nitrite Urine Bilirubin Urine Urobilinogen Ur Leukocyte Esterase Urine WBC (Auto) Urine RBC (Auto) U Hyaline Cast (Auto) U Epithel Cells (Auto) Urine Bacteria (Auto) Urine Comment Blood Parasites ID PG Care Time/CCT Total # of Minutes Spent Total Time Spent with Patient: Total time spent is greater than 50% in coordination of care (as documented) at patient's floor/unit and/or counseling patient: Coding Level of Care Code 79531 SUB INP/OBS CARE 1/25MIN Diagnoses Chest pain R07.9 Acute UTI N39.0 S/P coronary artery stent placement Z95.5 Chronic heart failure with preserved ejection fraction I50.32 Multiple sclerosis G35 Paroxysmal atrial flutter I48.92 Time Spent (min) 26
[2025-06-14] MEDS: ACETAMINOPHEN 500 MG TAB PO PRN (11:36)
--- NOTE | 2025-06-14 13:56 | Cardiology Progress Note ---
Date of Service June 14, 2025 Assessment & Plan (1) Chest pain: (2) Sinus tachycardia: (3) Coronary artery disease: Plan 1. Chest pain: She may have angina, it does not appear that she has an acute coronary syndrome. I would treat this with antianginals (I did go up on the beta-silviano yesterday and this morning, we can use nitrates). Probably consistent with her known disease. 2. Sinus tachycardia: She did have significant tachycardia and hypertension, this may be due to her urinary issues and anxiety. Her tachycardia has improved although is still present with a heart rate of around 100, this is surprising with that metoprolol dose. I am reluctant to go up further on her beta-silviano in part because her blood pressure is no longer elevated. She still has very little diurnal heart rate variability and this is still suggestive of a high catecholamine state. At the moment I would prefer to continue to observe on her current medications. 3. Coronary disease: She has known coronary artery disease, including recent myocardial infarction. I do not think there is any indication for urgent catheterization today. Her electrocardiogram from early yesterday morning did show what look like ischemic inferior changes, however that is probably on the basis of demand ischemia and her known right coronary artery disease. I would continue to follow her symptomatically and try to control her heart rate and blood pressure for the time being. If we can get her up and have her move around to see if she does have angina that would be helpful. Admission and Anticipated Discharge Date Admission Date: June 13, 2025 Subjective Today she appears very tired, she tells me she is very sleepy but does not know why. She can be woken up but seems to fall quickly back to sleep. She denies chest discomfort but has not been active. She denies shortness of breath. Physical Exam Physical Exam: Constitutional: Alert, cooperative and in no distress. She appears very sleepy. HEENT: Unremarkable Neck: No jugular venous distention, carotid pulses are normal and equal bilaterally without bruits. Pulmonary: Clear to auscultation bilaterally. Cardiac: Regular rhythm with no murmur, gallop or rub. Abdomen: Soft, nontender with normal bowel sounds. Extremities: No edema. Neurologic: No focal findings. Skin: No rash, ecchymoses or petechiae. Results & Data Vital Signs (Past 12 Hours) Vital Signs Temp Pulse Resp BP BP Pulse Ox O2 Del Method 06/14/25 11:32 36.9 C 118 H 20 109/65 95 Nasal Cannula 06/14/25 11:00 06/14/25 09:30 108 H 99/63 L 06/14/25 08:22 Nasal Cannula 06/14/25 07:32 37.0 C 121 H 20 89/50 L 81/47 L 93 Nasal Cannula 06/14/25 02:54 37.3 C 120 H 18 114/59 L 95 Nasal Cannula O2 Del Method O2 Flow Rate O2 Flow Rate 06/14/25 11:32 2 06/14/25 11:00 Nasal Cannula 2 06/14/25 09:30 06/14/25 08:22 2 06/14/25 07:32 2 06/14/25 02:54 2 Laboratory Results Cardiac Enzymes 06/13/25 06/13/25 06/14/25 Range/Units 13:39 16:56 06:32 AST 20 16 (13-39) U/L Troponin I High Sens 15.6 H (0-14) pg/ml CBC 06/13/25 06/13/25 06/14/25 Range/Units 16:56 23:35 06:32 WBC 10.78 10.87 H 9.60 (4.8-10.8) K/ul RBC 4.65 4.27 4.18 L (4.20-5.40) M/uL Hgb 12.5 11.0 L 11.2 L (12.0-16.0) g/dl Hct 37.1 35.2 L 33.6 L (37.0-47.0) % Plt Count 263 192 276 (130-400) K/uL Comprehensive Metabolic Panel 06/13/25 06/13/25 06/14/25 Range/Units 16:56 23:42 06:32 Sodium 134 L 134 L 136 (136-145) mmol/L Potassium 4.3 4.4 3.9 (3.5-5.1) mmol/L Chloride 101 102 102 (98-107) mmol/L Carbon Dioxide 23 23 24 (21-32) mmol/L BUN 15 18 20 (6-23) mg/dl Creatinine 1.07 1.36 H 1.42 H (0.6-1.2) mg/dl Glucose 207 H 229 H 184 H (70-99(Fasting)) mg/dl Calcium 8.9 8.7 8.9 (8.6-10.3) mg/dl AST 20 16 (13-39) U/L ALT 20 17 (7-52) U/L Alkaline Phosphatase 70 57 (34-104) U/L Total Protein 7.2 6.9 (6.0-8.3) gm/dl Albumin 3.7 3.5 (3.4-5.0) gm/dl Intake and Output 06/13/25 06/14/25 06/14/25 22:59 06:59 14:59 Intake Total 548.1 / 1625.7 295.1 / 1625.7 795.733 / 795.733 Output Total 875 / 1375 500 / 1375 Balance -326.9 / 250.7 -204.9 / 250.7 795.733 / 795.733 Intake: IV 248.1 / 1265.7 295.1 / 1265.7 795.733 / 795.733 Acetaminophen 1,000 mg In 100 100 / 100 ml @ 400 mls/hr IV NOW [facility] Rx#: [id number] Heparin 07823 Unit/500 ml D5w 148.1 / 243.2 95.1 / 243.2 195.733 / 195.733 25,000 units In 500 ml @ 950 UNITS/HR 19 mls/hr IV .Q24H [facility] Rx#:[id number] Piperacillin/Tazobactam 4.5 gm 100 / 200 100 / 200 100 / 100 In 100 ml @ 25 mls/hr IV Q8H [facility] Rx#:[id number] Sodium Chloride 0.9% 500 ml @ 500 / 500 999 mls/hr IV .Q31M [facility] Rx#: [id number] Oral 300 / 360 Output: Urine Amount (Catheter) 875 / 1375 500 / 1375 External 875 / 1375 500 / 1375 Diagnostic Findings Telemetry: Sinus tachycardia, the rate has dropped somewhat and is around 100 bp m on average today, perhaps a little bit more. PG Care Time/CCT Total # of Minutes Spent Total Time Spent with Patient: Total time spent is greater than 50% in coordination of care (as documented) at patient's floor/unit and/or counseling patient: Coding Level of Care Code 13829 SUB INP/OBS CARE 2/35MIN Diagnoses Chest pain R07.9 Sinus tachycardia R00.0 Coronary artery disease I25.10
[2025-06-14 14:13] LABS: ANTI-Xa, UFH(UnfractionatedHep 0.25 IU/ml (0.3-0.7)
[2025-06-14] MEDS: METOPROLOL TARTRATE 1 MG/ML VIAL IV STA (17:47)
[2025-06-14] MEDS: SODIUM CHLORIDE 0.9% 250 ML IV ONE (17:48)
[2025-06-14] MEDS: ASPIRIN 81 MG ECTAB PO STA (17:59)
[2025-06-14] MEDS: METOPROLOL TARTRATE 1 MG/ML VIAL IV ONE (17:59)
[2025-06-14] MEDS: METOPROLOL TARTRATE 25 MG TAB PO SCH (18:22)
[2025-06-14 18:42] LABS: ANTI-Xa, UFH(UnfractionatedHep 0.30 IU/ml (0.3-0.7)
[2025-06-14] MEDS: METOPROLOL SUCC 50MG EXT REL TAB PO STA (19:29)
[2025-06-14] MEDS: RANOLAZINE 500 MG ER TAB PO SCH (20:48)
[2025-06-15 07:15] LABS: Hematocrit (blood only) 30.4 % (37.0-47.0); Hemoglobin 10.1 g/dl (12.0-16.0); Mean Corpuscular Hemoglobin 26.9 pg (25.0-34.0); Mean Corpuscular Volume 80.9 fL (80.0-100.0); Platelet Count 223 K/uL (130-400); RDW Standard Deviation 47.3 fL (36.4-46.3); Red Blood Count 3.76 M/uL (4.20-5.40); White Blood Count 7.10 K/ul (4.8-10.8)
[2025-06-15 07:32] LABS: Alanine Aminotransferase 18.0 U/L (7-52); Albumin Globulin Ratio 1.2 (0.9-2); Alkaline Phosphatase 47.0 U/L (34-104); Anion Gap 8.0 (3-11); Bilirubin,Total 0.5 mg/dl (0.2-1.0); Blood Urea Nitrogen 23.0 mg/dl (6-23); Calcium 8.4 mg/dl (8.6-10.3); Carbon Dioxide 26.0 mmol/L (21-32); Chloride 102.0 mmol/L (98-107); Creatinine Clr Calc Pharmacy 40.3 ml/min; Globulin 2.8 gm/dl (2.5-4.0); Glucose 171.0 mg/dl (70-99(Fasting)); Potassium 3.6 mmol/L (3.5-5.1); Sodium 136.0 mmol/L (136-145); Total Protein 6.2 gm/dl (6.0-8.3)
[2025-06-15 07:37] LABS: ANTI-Xa, UFH(UnfractionatedHep 0.32 IU/ml (0.3-0.7)
[2025-06-15] MEDS ORDERED: METOPROLOL SUCC 25MG EXT REL TAB PO SCH (09:00)
--- NOTE | 2025-06-15 11:14 | Cardiology Progress Note ---
Date of Service June 15, 2025 Assessment & Plan (1) Chest pain: (2) Sinus tachycardia: (3) Coronary artery disease: Plan 1. Chest pain: She may have angina, it does not appear that she has an acute coronary syndrome although her enzymes are slightly elevated at. I would treat this with antianginals (I did go up on her metoprolol succinate to 200 mg daily but her heart rate is still elevated, we can also use nitrates but this may not help her heart rate). Probably consistent with her known disease. 2. Sinus tachycardia: She did have significant tachycardia and hypertension, this may be due to her urinary issues and anxiety. Her tachycardia has improved although is still present with a heart rate of around 100, this is surprising with that metoprolol dose. I am reluctant to go up further on her beta-silviano in part because her blood pressure is no longer elevated. She still has very little diurnal heart rate variability and this is still suggestive of a high catecholamine state. At the moment I would prefer to continue her current dose of metoprolol but I am going to add low-dose diltiazem which sometimes will also help heart rate. There are newer agents we could consider but they are typically not antianginal. 3. Coronary disease: She has known coronary artery disease, including recent myocardial infarction. We do not feel she should have repeat catheterization at this time. Her electrocardiogram from early yesterday morning did show what looked like ischemic inferior changes, however that is probably on the basis of demand ischemia and her known right coronary artery disease. I would continue to follow her symptomatically and try to control her heart rate and blood pressure for the time being. If we can get her up and have her move around to see if she does have angina that would be helpful. Admission and Anticipated Discharge Date Admission Date: June 13, 2025 Subjective She feels better today, she does not know why she was so tired over the weekend. She feels more awake today but she has not been out of bed. Physical Exam Physical Exam: Constitutional: Alert, cooperative and in no distress. HEENT: Unremarkable Neck: No jugular venous distention, carotid pulses are normal and equal bila terally without bruits. Pulmonary: Clear to auscultation bilaterally. Cardiac: Regular rhythm with no murmur, gallop or rub. Abdomen: Soft, nontender with normal bowel sounds. Extremities: No edema. Neurologic: No focal findings. Skin: No rash, ecchymoses or petechiae. Results & Data Vital Signs (Past 12 Hours) Vital Signs Temp Pulse Pulse Resp BP Pulse Ox O2 Del Method 06/15/25 07:51 36.6 C 108 H 18 133/77 95 Nasal Cannula 06/15/25 04:04 37.3 C 06/15/25 03:47 Nasal Cannula 06/15/25 02:30 37.8 C H 123 H 18 140/79 95 Nasal Cannula 06/15/25 02:26 126 H O2 Flow Rate 06/15/25 07:51 2 06/15/25 04:04 06/15/25 03:47 2 06/15/25 02:30 06/15/25 02:26 Laboratory Results Cardiac Enzymes 06/14/25 06/14/25 06/14/25 Range/Units 12:59 17:49 20:17 AST (13-39) U/L Troponin I High Sens 36.3 H D 37.0 H 36.8 H (0-14) pg/ml 06/15/25 06/15/25 Range/Units 03:58 06:56 AST 21 (13-39) U/L Troponin I High Sens 47.1 H D 49.0 H (0-14) pg/ml CBC 06/15/25 Range/Units 06:56 WBC 7.10 (4.8-10.8) K/ul RBC 3.76 L (4.20-5.40) M/uL Hgb 10.1 L (12.0-16.0) g/dl Hct 30.4 L (37.0-47.0) % Plt Count 223 (130-400) K/uL Comprehensive Metabolic Panel 06/15/25 Range/Units 06:56 Sodium 136 (136-145) mmol/L Potassium 3.6 (3.5-5.1) mmol/L Chloride 102 (98-107) mmol/L Carbon Dioxide 26 (21-32) mmol/L BUN 23 (6-23) mg/dl Creatinine 1.37 H (0.6-1.2) mg/dl Glucose 171 H (70-99(Fasting)) mg/dl Calcium 8.4 L (8.6-10.3) mg/dl AST 21 (13-39) U/L ALT 18 (7-52) U/L Alkaline Phosphatase 47 (34-104) U/L Total Protein 6.2 (6.0-8.3) gm/dl Albumin 3.4 (3.4-5.0) gm/dl Intake and Output 06/14/25 06/15/25 06/15/25 22:59 06:59 14:59 Intake Total 102.55 / 1676.616 200 / 1676.616 0 / 0 Output Total 700 / 700 Balance 102.55 / 976.616 -500 / 976.616 -1 Intake: IV 102.55 / 1676.616 200 / 1676.616 0 / 0 Heparin 81811 Unit/500 ml D5w 102.55 / 376.616 25,000 units In 500 ml @ 1,050 UNITS/HR 21 mls/hr IV .[id number] [facility] Rx#:[id number] Piperacillin/Tazobactam 4.5 gm 200 / 300 In 100 ml @ 25 mls/hr IV Q8H [facility] Rx#:[id number] Sodium Chloride 0.9% 500 ml @ 0 / 0 75 mls/hr IV .Q6H40M [facility] Rx#: [id number] Output: Urine Amount (Catheter) 700 / 700 External 700 / 700 # Bowel Movements Other: Other Intake Source sips Weight 85 kg Diagnostic Findings Telemetry: Sinus tachycardia, low 100s. PG Care Time/CCT Total # of Minutes Spent Total Time Spent with Patient: Total time spent is greater than 50% in coordination of care (as documented) at patient's floor/unit and/or counseling patient: Coding Level of Care Code 48692 SUB INP/OBS CARE 2/35MIN Diagnoses Chest pain R07.9 Sinus tachycardia R00.0 Coronary artery disease I25.10
--- NOTE | 2025-06-15 11:14 | Hospitalist Progress Note ---
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 from 05/28--05/31, was here for NSTEMI , s/p LHC and found moderate to severe in stent re-stenosis of mid LAD and mid RCA stents also found 95% stenosis of prixmal PLB and s/p angioplasty of proximal right PLB with 1.5mm balloon, our chiropractic assistant noted difficulty to large balloon across distal RCA in stent restenosis. she was on heparin infusion and then dc on 05/31/2025 with aspirin plavix, and also on metoprolol 150mg, crestor 40mg, and lasix every other day on 06/13/2025, she's return to our hospital with chest pain episode and HR of 150. started for ceftriaxone, imdur for unstable angina, heparin ACS dose CTA negative for dissection, PE, abdominal pain, CT abdomen negative for perforatoin perforation 06/14/2025, CARLIN, hypotensive, holding amlodipine 2.5mg, hold lisinopril given CARLIN holding metoprolol. 1. acute chest pain, unstable angina 2. UTI, suprapubic pain 3. CARLIN, hypotension 4. hx of CAD with LAD, RCA 5. recent stent to right PLB restenosis and residual severe stenosis 6. hematuria 7. CHFpEF, A-flutter 9. diabetes (no longer on insulin) 9. MS 10. umbar disk disease overall plan today appreciate cardiology input about LHC given severe residual stenosis continue to hold lisinopril given CARLIN, hold amlodipine up-titrate metoprolol, imdur as tolerated c/w heparin ACS dose. trending her EKG and troponin level treatment for UTI 1. acute chest pain, unstable angina CTA negative for PE, negative for dissection heparin ACS dose, trend h/h imdur 60mg daily for symptomatic control she developed chest pain episode at 5pm on 06/14, added ranexa, metoprolol resumed. continue to hold lisinopril and amlodipine so we can up-titrate her anti-anginal appreciate cardiology eval for repeat LHC versus medical management 2. UTI, suprapubic discomfort, she's on antibiotics, zosyn, pyridium for dysuria, her suprapubic pain continue to improve on zosyn 3. CARLIN, hypotension occured on 06/14, holding amlodipine, lisinopril 40mg, and metoprolol 4. lower extremity edema, duplex US 3. hx of multivessel CAD c/w aspirin, plavix, crestor potential increased metoprolol from 150mg ER to high dose and add imdur for symptomatic management . CHFpEF. A-flutter her home med is metoprolol 150mg and Crestor 40mg lasix every other day multiple sclerosis , c/w baclofen 10mg TID, neupro 1mg/24 patch 24 hours pramipexole 0.2m5 BID . hypomagnesium -magnesium 400mg daily (2) Acute UTI: (3) S/P coronary artery stent placement: (4) Chronic heart failure with preserved ejection fraction: (5) Multiple sclerosis: (6) Paroxysmal atrial flutter: Admission and Anticipated Discharge Date Admission Date: June 13, 2025 Subjective yesterday at 5:30pm developed chest pain, s/p aspirin 162mg, restarted on metoprolol 50mg, noted soft BP and s/p IV fluid continue to hold amlodpine, lisinopril so we can up-titrate her anti-anginal cardiology notified. her chest pain resolved after 1-2 hours. she was maintain on heparin ACS dose she's on ranexa CARLIN, lisinoipril being held this morning, no chest pain, no chest pressure, no diaphoresis, or palpitation continue EKG monitoring and troponin appreciate cardiology input about whether repeat LHC is indicated Today she appears very tired, she tells me she is very sleepy but does not know why. She can be woken up but seems to fall quickly back to sleep. She denies chest discomfort but has not been active. She denies shortness of breath. Review of Systems Review of Systems: Constitutional: No Weight Change, No Fever, No Chills, No Night Sweats, No Fatigue, No Malaise Cardiovascular: chest pain resolved; no chest pressure; no diaphoresis; no palpitation Respiratory: No Cough, No Sputum, No Wheezing, No Smoke Exposure, No Dyspnea Gastrointestinal: No Nausea, No Vomiting, No Diarrhea, No Constipation, No Pain, No Heartburn, No Anorexia, No Dysphagia, Genitourinary: dysuria resolved Musculoskeletal: No Arthralgias, No Myalgias, No Joint Swelling, No Joint Stiffness, No Back Pain, No Neck Pain, No Injury History Skin: No Skin Lesions, No Pruritis, No Hair Changes, No Breast/Skin Changes, No Nipple Discharge Neuro: No Weakness, No Numbness, No Paresthesias, No Loss of Consciousness, No Syncope, No Dizziness, No Headache, No Coordination Changes, No Recent Falls Heme/Lymph: No Bruising, No Bleeding, No Transfusions History, No Lymphadenopathy Endocrine: No Polyuria, No Polydipsia, No Temperature Intolerance Physical Exam Physical Exam: VITALS: Reviewed. WEIGHT/BMI reviewed. GEN: Healthy appearing, well-developed, NAD. -Head: NC/AT; -Mouth and throat: MMM. Normal gums, muc gloria, palate,. Good dentition. NECK: Supple, with no masses. CV: RRR, no m/r/g. LUNGS: CTAB, no w/r/c. on supplemental oxygen ABD: Soft, NT/ND, NBS, no masses or organomegaly. suprapubic tenderness resolved. : N/A SKIN: Warm, well perfused. No skin rashes or abnormal lesions. MSK: No deformities, Normal gait. EXT: No clubbing, cyanosis, or edema. NEURO: AAOx3; slow mentation Results & Data Results & Data Vital Signs (Past 12 Hours) Vital Signs Temp Pulse Pulse Resp BP Pulse Ox O2 Del Method 06/15/25 07:51 36.6 C 108 H 18 133/77 95 Nasal Cannula 06/15/25 04:04 37.3 C 06/15/25 03:47 Nasal Cannula 06/15/25 02:30 37.8 C H 123 H 18 140/79 95 Nasal Cannula 06/15/25 02:26 126 H O2 Flow Rate 06/15/25 07:51 2 06/15/25 04:04 06/15/25 03:47 2 06/15/25 02:30 06/15/25 02:26 Laboratory Results Laboratory Results - last 72 hr 06/13/25 06/13/25 06/13/25 04:58 05:00 05:23 WBC Cancelled RBC Cancelled Hgb Cancelled POC Hgb 11.6 L Hct Cancelled POC Hct 34 L MCV Cancelled MCH Cancelled MCHC Cancelled RDW Std Deviation Cancelled RDW Coeff of [place] Cancelled Plt Count Cancelled MPV Cancelled Immature Gran % (Auto) Cancelled Neut % (Auto) Cancelled Lymph % (Auto) Cancelled [place] % (Auto) Cancelled Eos % (Auto) Cancelled Baso % (Auto) Cancelled Neut # (Auto) Cancelled Lymph # (Auto) Cancelled [place] # (Auto) Cancelled Eos # (Auto) Cancelled Baso # (Auto) Cancelled Immature Gran # (Auto) Cancelled Absolute Nucleated RBC Cancelled Nucleated RBC % (auto) Cancelled Neutrophils % (Manual) Cancelled Band Neutrophils % Cancelled Lymphocytes % (Manual) Cancelled Prolymphocyte % Cancelled Reactive Lymphs % (Man) Cancelled Monocytes % (Manual) Cancelled Eosinophils % (Manual) Cancelled Basophils % (Manual) Cancelled Metamyelocytes % (Man) Cancelled Myelocytes % (Man) Cancelled Promyelocytes % (Man) Cancelled Blast Cells % (Manual) Cancelled Plasma Cell % (Manual) Cancelled Other Cells % Cancelled Nucleated RBC % Cancelled Neutrophils # (Manual) Cancelled Band Neutrophils # Cancelled Total Absolute Neuts Cancelled Lymphocytes # (Manual) Cancelled Prolymphocyte # Cancelled Reactive Lymphs # Cancelled Total Abs Lymphocytes Cancelled Monocytes # (Manual) Cancelled Eosinophils # (Manual) Cancelled Basophils # (Manual) Cancelled Metamyelocytes # (Man) Cancelled Myelocytes # (Manual) Cancelled Promyelocytes # (Man) Cancelled Blast Cells # (Man) Cancelled Plasma Cell # (Manual) Cancelled Other Cells # Cancelled Nucleated RBCs # (Man) Cancelled Hypersegmented Neuts Cancelled Hyposegmented Neuts Cancelled Hypogranular Neuts Cancelled Large Granular Lymphs Cancelled # Lrg Granular Lymphs Cancelled Hairy Cells Cancelled Smudge Cells Cancelled Toxic Granulation Cancelled Toxic Vacuolation Cancelled Dohle Bodies Cancelled Bety Rods Cancelled Platelet Estimate Cancelled Hypogranular Platelets Cancelled Giant Platelets Cancelled Platelet Satelliting Cancelled RBC Morphology Cancelled Polychromasia Cancelled Hypochromasia Cancelled Poikilocytosis Cancelled Basophilic Stippling Cancelled Anisocytosis Cancelled Microcytosis Cancelled Macrocytosis Cancelled Spherocytes Cancelled Pappenheimer Bodies Cancelled Sickle Cells Cancelled Target Cells Cancelled Tear Drop Cells Cancelled Ovalocytes Cancelled Stomatocytes Cancelled [place] Bodies Cancelled Echinocytes Cancelled Acanthocytes (Spur) Cancelled Rouleaux Cancelled RBC Agglutinates Cancelled Schistocytes Cancelled Sezary Cell Cancelled PT INR APTT PTT Ratio Heparin Anti-Xa, Unfract VBG pH VBG pCO2 VBG pO2 VBG HCO3 VBG O2 Saturation VBG Base Excess POC Sodium 136 Sodium 137 POC Potassium 4.5 Potassium 4.5 POC Chloride 109 Chloride 105 Carbon Dioxide 23 POC Total CO2 18 L Anion Gap 9 POC Anion Gap 15.0 L POC BUN 25 H BUN 23 Creatinine 0.97 POC Creatinine 1.1 Est Cr Clr Drug Dosing 57.4 eGFR 64.05 BUN/Creatinine Ratio 23.7 H Glucose 144 H POC Glucose POC Glucose (other) 151 H Lactate Calcium 8.9 POC Ioniz Calcium Umu 0.92 L Magnesium 1.7 Total Bilirubin 0.5 Direct Bilirubin 0.1 AST 21 ALT 22 Alkaline Phosphatase 70 Troponin I High Sens 14.6 H Total Protein 6.4 Albumin 3.5 Globulin Albumin/Globulin Ratio Lipase Procalcitonin 0.15 Urine Color Yellow Urine Appearance Turbid A Urine pH 6.0 Ur Specific [place] 1.008 Urine Protein 1+ H Urine Glucose (UA) Negative Urine Ketones Negative Urine Blood 2+ H Urine Nitrite Negative Urine Bilirubin Negative Urine Urobilinogen Negative Ur Leukocyte Esterase 3+ H Urine WBC (Auto) >50 H Urine RBC (Auto) 11-20 H U Hyaline Cast (Auto) 0-2 U Epithel Cells (Auto) 0-2 Urine Bacteria (Auto) 4+ H Urine Comment Blood Parasites ID Cancelled 06/13/25 06/13/25 06/13/25 07:40 07:41 09:25 WBC 8.52 RBC 4.36 Hgb 11.1 L POC Hgb Hct 34.7 L POC Hct MCV 79.6 L MCH 25.5 MCHC 32.0 RDW Std Deviation 45.0 RDW Coeff of [place] 15.7 H Plt Count 243 MPV 9.5 Immature Gran % (Auto) 0.4 Neut % (Auto) 80.4 Lymph % (Auto) 10.4 [place] % (Auto) 7.6 Eos % (Auto) 0.7 Baso % (Auto) 0.5 Neut # (Auto) 6.85 H Lymph # (Auto) 0.89 L [place] # (Auto) 0.65 H Eos # (Auto) 0.06 Baso # (Auto) 0.04 Immature Gran # (Auto) 0.03 Absolute Nucleated RBC Nucleated RBC % (auto) Neutrophils % (Manual) Band Neutrophils % Lymphocytes % (Manual) Prolymphocyte % Reactive Lymphs % (Man) Monocytes % (Manual) Eosinophils % (Manual) Basophils % (Manual) Metamyelocytes % (Man) Myelocytes % (Man) Promyelocytes % (Man) Blast Cells % (Manual) Plasma Cell % (Manual) Other Cells % Nucleated RBC % Neutrophils # (Manual) Band Neutrophils # Total Absolute Neuts Lymphocytes # (Manual) Prolymphocyte # Reactive Lymphs # Total Abs Lymphocytes Monocytes # (Manual) Eosinophils # (Manual) Basophils # (Manual) Metamyelocytes # (Man) Myelocytes # (Manual) Promyelocytes # (Man) Blast Cells # (Man) Plasma Cell # (Manual) Other Cells # Nucleated RBCs # (Man) Hypersegmented Neuts Hyposegmented Neuts Hypogranular Neuts Large Granular Lymphs # Lrg Granular Lymphs Hairy Cells Smudge Cells Toxic Granulation Toxic Vacuolation Dohle Bodies Bety Rods Platelet Estimate Hypogranular Platelets Giant Platelets Platelet Satelliting RBC Morphology Polychromasia Hypochromasia Poikilocytosis Basophilic Stippling Anisocytosis Microcytosis Macrocytosis Spherocytes Pappenheimer Bodies Sickle Cells Target Cells Tear Drop Cells Ovalocytes Stomatocytes [place] Bodies Echinocytes Acanthocytes (Spur) Rouleaux RBC Agglutinates Schistocytes Sezary Cell PT 12.3 H INR 1.1 APTT 53 H PTT Ratio 2.0 Heparin Anti-Xa, Unfract VBG pH VBG pCO2 VBG pO2 VBG HCO3 VBG O2 Saturation VBG Base Excess POC Sodium Sodium POC Potassium Potassium POC Chloride Chloride Carbon Dioxide POC Total CO2 Anion Gap POC Anion Gap POC BUN BUN Creatinine POC Creatinine Est Cr Clr Drug Dosing eGFR BUN/Creatinine Ratio Glucose POC Glucose POC Glucose (other) Lactate 1.6 Calcium POC Ioniz Calcium Umu Magnesium 1.9 Total Bilirubin Direct Bilirubin AST ALT Alkaline Phosphatase Troponin I High Sens 12.4 Total Protein Albumin Globulin Albumin/Globulin Ratio Lipase 61 Procalcitonin Urine Color Urine Appearance Urine pH Ur Specific [place] Urine Protein Urine Glucose (UA) Urine Ketones Urine Blood Urine Nitrite Urine Bilirubin Urine Urobilinogen Ur Leukocyte Esterase Urine WBC (Auto) Urine RBC (Auto) U Hyaline Cast (Auto) U Epithel Cells (Auto) Urine Bacteria (Auto) Urine Comment Blood Parasites ID 06/13/25 06/13/25 06/13/25 13:39 15:20 16:56 WBC 10.78 RBC 4.65 Hgb 12.5 POC Hgb Hct 37.1 POC Hct MCV 79.8 L MCH 26.9 MCHC 33.7 RDW Std Deviation 45.5 RDW Coeff of [place] 15.7 H Plt Count 263 MPV 9.6 Immature Gran % (Auto) Neut % (Auto) Lymph % (Auto) [place] % (Auto) Eos % (Auto) Baso % (Auto) Neut # (Auto) Lymph # (Auto) [place] # (Auto) Eos # (Auto) Baso # (Auto) Immature Gran # (Auto) Absolute Nucleated RBC Nucleated RBC % (auto) Neutrophils % (Manual) Band Neutrophils % Lymphocytes % (Manual) Prolymphocyte % Reactive Lymphs % (Man) Monocytes % (Manual) Eosinophils % (Manual) Basophils % (Manual) Metamyelocytes % (Man) Myelocytes % (Man) Promyelocytes % (Man) Blast Cells % (Manual) Plasma Cell % (Manual) Other Cells % Nucleated RBC % Neutrophils # (Manual) Band Neutrophils # Total Absolute Neuts Lymphocytes # (Manual) Prolymphocyte # Reactive Lymphs # Total Abs Lymphocytes Monocytes # (Manual) Eosinophils # (Manual) Basophils # (Manual) Metamyelocytes # (Man) Myelocytes # (Manual) Promyelocytes # (Man) Blast Cells # (Man) Plasma Cell # (Manual) Other Cells # Nucleated RBCs # (Man) Hypersegmented Neuts Hyposegmented Neuts Hypogranular Neuts Large Granular Lymphs # Lrg Granular Lymphs Hairy Cells Smudge Cells Toxic Granulation Toxic Vacuolation Dohle Bodies Bety Rods Platelet Estimate Hypogranular Platelets Giant Platelets Platelet Satelliting RBC Morphology Polychromasia Hypochromasia Poikilocytosis Basophilic Stippling Anisocytosis Microcytosis Macrocytosis Spherocytes Pappenheimer Bodies Sickle Cells Target Cells Tear Drop Cells Ovalocytes Stomatocytes [place] Bodies Echinocytes Acanthocytes (Spur) Rouleaux RBC Agglutinates Schistocytes Sezary Cell PT INR APTT PTT Ratio Heparin Anti-Xa, Unfract 0.16 L VBG pH VBG pCO2 VBG pO2 VBG HCO3 VBG O2 Saturation VBG Base Excess POC Sodium Sodium 134 L POC Potassium Potassium 4.3 POC Chloride Chloride 101 Carbon Dioxide 23 POC Total CO2 Anion Gap 10 POC Anion Gap POC BUN BUN 15 Creatinine 1.07 POC Creatinine Est Cr Clr Drug Dosing 51.6 eGFR 56.93 BUN/Creatinine Ratio 14.0 Glucose 207 H POC Glucose POC Glucose (other) Lactate 1.8 Calcium 8.9 POC Ioniz Calcium Umu Magnesium Total Bilirubin 0.6 Direct Bilirubin AST 20 ALT 20 Alkaline Phosphatase 70 Troponin I High Sens 15.6 H Total Protein 7.2 Albumin 3.7 Globulin 3.5 Albumin/Globulin Ratio 1.1 Lipase 57 Procalcitonin Urine Color Urine Appearance Urine pH Ur Specific [place] Urine Protein Urine Glucose (UA) Urine Ketones Urine Blood Urine Nitrite Urine Bilirubin Urine Urobilinogen Ur Leukocyte Esterase Urine WBC (Auto) Urine RBC (Auto) U Hyaline Cast (Auto) U Epithel Cells (Auto) Urine Bacteria (Auto) Urine Comment Blood Parasites ID 06/13/25 06/13/25 06/13/25 23:01 23:35 23:42 WBC 10.87 H RBC 4.27 Hgb 11.0 L POC Hgb Hct 35.2 L POC Hct MCV 82.4 MCH 25.8 MCHC 31.3 L RDW Std Deviation 48.4 H RDW Coeff of [place] 16.1 H Plt Count 192 MPV 9.8 Immature Gran % (Auto) Neut % (Auto) Lymph % (Auto) [place] % (Auto) Eos % (Auto) Baso % (Auto) Neut # (Auto) Lymph # (Auto) [place] # (Auto) Eos # (Auto) Baso # (Auto) Immature Gran # (Auto) Absolute Nucleated RBC Nucleated RBC % (auto) Neutrophils % (Manual) Band Neutrophils % Lymphocytes % (Manual) Prolymphocyte % Reactive Lymphs % (Man) Monocytes % (Manual) Eosinophils % (Manual) Basophils % (Manual) Metamyelocytes % (Man) Myelocytes % (Man) Promyelocytes % (Man) Blast Cells % (Manual) Plasma Cell % (Manual) Other Cells % Nucleated RBC % Neutrophils # (Manual) Band Neutrophils # Total Absolute Neuts Lymphocytes # (Manual) Prolymphocyte # Reactive Lymphs # Total Abs Lymphocytes Monocytes # (Manual) Eosinophils # (Manual) Basophils # (Manual) Metamyelocytes # (Man) Myelocytes # (Manual) Promyelocytes # (Man) Blast Cells # (Man) Plasma Cell # (Manual) Other Cells # Nucleated RBCs # (Man) Hypersegmented Neuts Hyposegmented Neuts Hypogranular Neuts Large Granular Lymphs # Lrg Granular Lymphs Hairy Cells Smudge Cells Toxic Granulation Toxic Vacuolation Dohle Bodies Bety Rods Platelet Estimate Hypogranular Platelets Giant Platelets Platelet Satelliting RBC Morphology Polychromasia Hypochromasia Poikilocytosis Basophilic Stippling Anisocytosis Microcytosis Macrocytosis Spherocytes Pappenheimer Bodies Sickle Cells Target Cells Tear Drop Cells Ovalocytes Stomatocytes [place] Bodies Echinocytes Acanthocytes (Spur) Rouleaux RBC Agglutinates Schistocytes Sezary Cell PT INR APTT PTT Ratio Heparin Anti-Xa, Unfract 0.21 L VBG pH 7.46 H VBG pCO2 33 L VBG pO2 40 VBG HCO3 24 VBG O2 Saturation 70.5 VBG Base Excess 0.3 POC Sodium Sodium 134 L POC Potassium Potassium 4.4 POC Chloride Chloride 102 Carbon Dioxide 23 POC Total CO2 Anion Gap 9 POC Anion Gap POC BUN BUN 18 Creatinine 1.36 H POC Creatinine Est Cr Clr Drug Dosing 40.6 eGFR 42.69 BUN/Creatinine Ratio 13.2 Glucose 229 H POC Glucose 232 H POC Glucose (other) Lactate Calcium 8.7 POC Ioniz Calcium Umu Magnesium Total Bilirubin Direct Bilirubin AST ALT Alkaline Phosphatase Troponin I High Sens Total Protein Albumin Globulin Albumin/Globulin Ratio Lipase Procalcitonin Urine Color Urine Appearance Urine pH Ur Specific [place] Urine Protein Urine Glucose (UA) Urine Ketones Urine Blood Urine Nitrite Urine Bilirubin Urine Urobilinogen Ur Leukocyte Esterase Urine WBC (Auto) Urine RBC (Auto) U Hyaline Cast (Auto) U Epithel Cells (Auto) Urine Bacteria (Auto) Urine Comment Blood Parasites ID 06/14/25 06/14/25 06/14/25 06:32 12:59 17:49 WBC 9.60 RBC 4.18 L Hgb 11.2 L POC Hgb Hct 33.6 L POC Hct MCV 80.4 MCH 26.8 MCHC 33.3 RDW Std Deviation 47.0 H RDW Coeff of [place] 16.1 H Plt Count 276 MPV 9.7 Immature Gran % (Auto) Neut % (Auto) Lymph % (Auto) [place] % (Auto) Eos % (Auto) Baso % (Auto) Neut # (Auto) Lymph # (Auto) [place] # (Auto) Eos # (Auto) Baso # (Auto) Immature Gran # (Auto) Absolute Nucleated RBC Nucleated RBC % (auto) Neutrophils % (Manual) Band Neutrophils % Lymphocytes % (Manual) Prolymphocyte % Reactive Lymphs % (Man) Monocytes % (Manual) Eosinophils % (Manual) Basophils % (Manual) Metamyelocytes % (Man) Myelocytes % (Man) Promyelocytes % (Man) Blast Cells % (Manual) Plasma Cell % (Manual) Other Cells % Nucleated RBC % Neutrophils # (Manual) Band Neutrophils # Total Absolute Neuts Lymphocytes # (Manual) Prolymphocyte # Reactive Lymphs # Total Abs Lymphocytes Monocytes # (Manual) Eosinophils # (Manual) Basophils # (Manual) Metamyelocytes # (Man) Myelocytes # (Manual) Promyelocytes # (Man) Blast Cells # (Man) Plasma Cell # (Manual) Other Cells # Nucleated RBCs # (Man) Hypersegmented Neuts Hyposegmented Neuts Hypogranular Neuts Large Granular Lymphs # Lrg Granular Lymphs Hairy Cells Smudge Cells Toxic Granulation Toxic Vacuolation Dohle Bodies Bety Rods Platelet Estimate Hypogranular Platelets [place] Platelets Platelet Satelliting RBC Morphology Polychromasia Hypochromasia Poikilocytosis Basophilic Stippling Anisocytosis Microcytosis Macrocytosis Spherocytes Pappenheimer Bodies Sickle Cells Target Cells Tear Drop Cells Ovalocytes Stomatocytes [place] Bodies Echinocytes Acanthocytes (Spur) Rouleaux RBC Agglutinates Schistocytes Sezary Cell PT INR APTT PTT Ratio Heparin Anti-Xa, Unfract 0.25 L 0.25 L 0.30 VBG pH VBG pCO2 VBG pO2 VBG HCO3 VBG O2 Saturation VBG Base Excess POC Sodium Sodium 136 POC Potassium Potassium 3.9 POC Chloride Chloride 102 Carbon Dioxide 24 POC Total CO2 Anion Gap 10 POC Anion Gap POC BUN BUN 20 Creatinine 1.42 H POC Creatinine Est Cr Clr Drug Dosing 38.9 eGFR 40.54 BUN/Creatinine Ratio 14.1 Glucose 184 H POC Glucose POC Glucose (other) Lactate Calcium 8.9 POC Ioniz Calcium Umu Magnesium Total Bilirubin 0.6 Direct Bilirubin AST 16 ALT 17 Alkaline Phosphatase 57 Troponin I High Sens 36.3 H D 37.0 H Total Protein 6.9 Albumin 3.5 Globulin 3.4 Albumin/Globulin Ratio 1.0 Lipase Procalcitonin Urine Color Urine Appearance Urine pH Ur Specific [place] Urine Protein Urine Glucose (UA) Urine Ketones Urine Blood Urine Nitrite Urine Bilirubin Urine Urobilinogen Ur Leukocyte Esterase Urine WBC (Auto) Urine RBC (Auto) U Hyaline Cast (Auto) U Epithel Cells (Auto) Urine Bacteria (Auto) Urine Comment Blood Parasites ID 06/14/25 06/15/25 06/15/25 20:17 00:20 03:58 WBC RBC Hgb POC Hgb Hct POC Hct MCV MCH MCHC RDW Std Deviation RDW Coeff of [place] Plt Count MPV Immature Gran % (Auto) Neut % (Auto) Lymph % (Auto) [place] % (Auto) Eos % (Auto) Baso % (Auto) Neut # (Auto) Lymph # (Auto) [place] # (Auto) Eos # (Auto) Baso # (Auto) Immature Gran # (Auto) Absolute Nucleated RBC Nucleated RBC % (auto) Neutrophils % (Manual) Band Neutrophils % Lymphocytes % (Manual) Prolymphocyte % Reactive Lymphs % (Man) Monocytes % (Manual) Eosinophils % (Manual) Basophils % (Manual) Metamyelocytes % (Man) Myelocytes % (Man) Promyelocytes % (Man) Blast Cells % (Manual) Plasma Cell % (Manual) Other Cells % Nucleated RBC % Neutrophils # (Manual) Band Neutrophils # Total Absolute Neuts Lymphocytes # (Manual) Prolymphocyte # Reactive Lymphs # Total Abs Lymphocytes Monocytes # (Manual) Eosinophils # (Manual) Basophils # (Manual) Metamyelocytes # (Man) Myelocytes # (Manual) Promyelocytes # (Man) Blast Cells # (Man) Plasma Cell # (Manual) Other Cells # Nucleated RBCs # (Man) Hypersegmented Neuts Hyposegmented Neuts Hypogranular Neuts Large Granular Lymphs # Lrg Granular Lymphs Hairy Cells Smudge Cells Toxic Granulation Toxic Vacuolation Dohle Bodies Ebty Rods Platelet Estimate Hypogranular Platelets [place] Platelets Platelet Satelliting RBC Morphology Polychromasia Hypochromasia Poikilocytosis Basophilic Stippling Anisocytosis Microcytosis Macrocytosis Spherocytes Pappenheimer Bodies Sickle Cells Target Cells Tear Drop Cells Ovalocytes Stomatocytes [place] Bodies Echinocytes Acanthocytes (Spur) Rouleaux RBC Agglutinates Schistocytes Sezary Cell PT INR APTT PTT Ratio Heparin Anti-Xa, Unfract Cancelled VBG pH VBG pCO2 VBG pO2 VBG HCO3 VBG O2 Saturation VBG Base Excess POC Sodium Sodium POC Potassium Potassium POC Chloride Chloride Carbon Dioxide POC Total CO2 Anion Gap POC Anion Gap POC BUN BUN Creatinine POC Creatinine Est Cr Clr Drug Dosing eGFR BUN/Creatinine Ratio Glucose POC Glucose POC Glucose (other) Lactate Calcium POC Ioniz Calcium Umu Magnesium Total Bilirubin Direct Bilirubin AST ALT Alkaline Phosphatase Troponin I High Sens 36.8 H 47.1 H D Total Protein Albumin Globulin Albumin/Globulin Ratio Lipase Procalcitonin Urine Color Urine Appearance Urine pH Ur Specific [place] Urine Protein Urine Glucose (UA) Urine Ketones Urine Blood Urine Nitrite Urine Bilirubin Urine Urobilinogen Ur Leukocyte Esterase Urine WBC (Auto) Urine RBC (Auto) U Hyaline Cast (Auto) U Epithel Cells (Auto) Urine Bacteria (Auto) Urine Comment Blood Parasites ID 06/15/25 06:56 WBC 7.10 RBC 3.76 L Hgb 10.1 L POC Hgb Hct 30.4 L POC Hct MCV 80.9 MCH 26.9 MCHC 33.2 RDW Std Deviation 47.3 H RDW Coeff of [place] 16.0 H Plt Count 223 MPV 9.4 Immature Gran % (Auto) Neut % (Auto) Lymph % (Auto) [place] % (Auto) Eos % (Auto) Baso % (Auto) Neut # (Auto) Lymph # (Auto) [place] # (Auto) Eos # (Auto) Baso # (Auto) Immature Gran # (Auto) Absolute Nucleated RBC Nucleated RBC % (auto) Neutrophils % (Manual) Band Neutrophils % Lymphocytes % (Manual) Prolymphocyte % Reactive Lymphs % (Man) Monocytes % (Manual) Eosinophils % (Manual) Basophils % (Manual) Metamyelocytes % (Man) Myelocytes % (Man) Promyelocytes % (Man) Blast Cells % (Manual) Plasma Cell % (Manual) Other Cells % Nucleated RBC % Neutrophils # (Manual) Band Neutrophils # Total Absolute Neuts Lymphocytes # (Manual) Prolymphocyte # Reactive Lymphs # Total Abs Lymphocytes Monocytes # (Manual) Eosinophils # (Manual) Basophils # (Manual) Metamyelocytes # (Man) Myelocytes # (Manual) Promyelocytes # (Man) Blast Cells # (Man) Plasma Cell # (Manual) Other Cells # Nucleated RBCs # (Man) Hypersegmented Neuts Hyposegmented Neuts Hypogranular Neuts Large Granular Lymphs # Lrg Granular Lymphs Hairy Cells Smudge Cells Toxic Granulation Toxic Vacuolation Dohle Bodies Bety Rods Platelet Estimate Hypogranular Platelets Giant Platelets Platelet Satelliting RBC Morphology Polychromasia Hypochromasia Poikilocytosis Basophilic Stippling Anisocytosis Microcytosis Macrocytosis Spherocytes Pappenheimer Bodies Sickle Cells Target Cells Tear Drop Cells Ovalocytes Stomatocytes [place] Bodies Echinocytes Acanthocytes (Spur) Rouleaux RBC Agglutinates Schistocytes [place] Cell PT INR APTT PTT Ratio Heparin Anti-Xa, Unfract 0.32 VBG pH VBG pCO2 VBG pO2 VBG HCO3 VBG O2 Saturation VBG Base Excess POC Sodium Sodium 136 POC Potassium Potassium 3.6 POC Chloride Chloride 102 Carbon Dioxide 26 POC Total CO2 Anion Gap 8 POC Anion Gap POC BUN BUN 23 Creatinine 1.37 H POC Creatinine Est Cr Clr Drug Dosing 40.3 eGFR 42.32 BUN/Creatinine Ratio 16.8 Glucose 171 H POC Glucose POC Glucose (other) Lactate Calcium 8.4 L POC Ioniz Calcium Umu Magnesium Total Bilirubin 0.5 Direct Bilirubin AST 21 ALT 18 Alkaline Phosphatase 47 Troponin I High Sens 49.0 H Total Protein 6.2 Albumin 3.4 Globulin 2.8 Albumin/Globulin Ratio 1.2 Lipase Procalcitonin Urine Color Urine Appearance Urine pH Ur Specific [place] Urine Protein Urine Glucose (UA) Urine Ketones Urine Blood Urine Nitrite Urine Bilirubin Urine Urobilinogen Ur Leukocyte Esterase Urine WBC (Auto) Urine RBC (Auto) U Hyaline Cast (Auto) U Epithel Cells (Auto) Urine Bacteria (Auto) Urine Comment Blood Parasites ID PG Care Time/CCT Total # of Minutes Spent Total Time Spent with Patient: Total time spent is greater than 50% in coordination of care (as documented) at patient's floor/unit and/or counseling patient: Coding Level of Care Code 60694 SUB INP/OBS CARE 2/35MIN Diagnoses Chest pain R07.9 Acute UTI N39.0 S/P coronary artery stent placement Z95.5 Chronic heart failure with preserved ejection fraction I50.32 Multiple sclerosis G35 Paroxysmal atrial flutter I48.92 Time Spent (min) 34
--- NOTE | 2025-06-15 13:11 | Electrocardiogram Report ---
Test Reason : Blood Pressure : */* mmHG Vent. Rate : 128 BPM Atrial Rate : 128 BPM P-R Int : 178 ms QRS Dur : 74 ms QT Int : 270 ms P-R-T Axes : 30 33 -22 degrees QTcB Int : 394 ms Sinus tachycardia Anterior infarct , age undetermined T wave abnormality, consider inferior ischemia Abnormal ECG When compared with ECG of 30-May-2025 06:15, T wave inversion more evident in Inferior leads Nonspecific T wave abnormality now evident in Anterior leads Confirmed by Santino Mcdermott ([id number]) on 06/15/2025 1:11:23 PM Referred By: REFERRED SELF Confirmed By: Santino Mcdermott
--- NOTE | 2025-06-15 13:15 | Electrocardiogram Report ---
Test Reason : Blood Pressure : */* mmHG Vent. Rate : 146 BPM Atrial Rate : 146 BPM P-R Int : 162 ms QRS Dur : 90 ms QT Int : 250 ms P-R-T Axes : * -1 -19 degrees QTcB Int : 389 ms Sinus tachycardia Inferior infarct , age undetermined Marked ST abnormality, possible lateral subendocardial injury Abnormal ECG When compared with ECG of 13-Jun-2025 02:55, (unconfirmed) Inferior infarct is now Present ST now depressed in Lateral leads Confirmed by Santino Mcdermott ([id number]) on 06/15/2025 1:15:04 PM Referred By: REFERRED SELF Confirmed By: Santino Mcdermott
--- NOTE | 2025-06-15 13:39 | Electrocardiogram Report ---
Test Reason : Blood Pressure : */* mmHG Vent. Rate : 126 BPM Atrial Rate : 126 BPM P-R Int : 174 ms QRS Dur : 90 ms QT Int : 292 ms P-R-T Axes : 42 9 7 degrees QTcB Int : 422 ms Sinus tachycardia Anterior infarct , age undetermined Abnormal ECG When compared with ECG of 13-Jun-2025 06:34, (unconfirmed) Criteria for Inferior infarct are no longer Present ST no longer depressed in Lateral leads Nonspecific T wave abnormality has replaced inverted T waves in Lateral leads Confirmed by Santino Mcdermott ([id number]) on 06/15/2025 1:39:30 PM Referred By: REFERRED SELF Confirmed By: Santino Mcdermott
[2025-06-15] MEDS: METOPROLOL TARTRATE 50 MG TAB PO STA (13:57)
--- NOTE | 2025-06-15 14:17 | Electrocardiogram Report ---
Test Reason : Blood Pressure : */* mmHG Vent. Rate : 137 BPM Atrial Rate : * BPM P-R Int : * ms QRS Dur : 76 ms QT Int : 370 ms P-R-T Axes : * 19 18 degrees QTcB Int : 558 ms Sinus tachycardia Nonspecific ST abnormality Inferior leads Abnormal ECG When compared with ECG of 13-Jun-2025 09:08, (unconfirmed) No significant change was found Confirmed by Santino Mcdermott ([id number]) on 06/15/2025 2:16:45 PM Referred By: REFERRED SELF Confirmed By: Santino Mcdermott
[2025-06-16 06:51] LABS: Hematocrit (blood only) 31.0 % (37.0-47.0); Hemoglobin 9.9 g/dl (12.0-16.0); Mean Corpuscular Hemoglobin 25.5 pg (25.0-34.0); Mean Corpuscular Volume 79.9 fL (80.0-100.0); Platelet Count 241 K/uL (130-400); RDW Standard Deviation 46.5 fL (36.4-46.3); Red Blood Count 3.88 M/uL (4.20-5.40); White Blood Count 7.98 K/ul (4.8-10.8)
[2025-06-16 07:09] LABS: Alanine Aminotransferase 17.0 U/L (7-52); Albumin Globulin Ratio 1.1 (0.9-2); Alkaline Phosphatase 49.0 U/L (34-104); Anion Gap 10.0 (3-11); Bilirubin,Total 0.4 mg/dl (0.2-1.0); Blood Urea Nitrogen 22.0 mg/dl (6-23); Calcium 8.6 mg/dl (8.6-10.3); Carbon Dioxide 27.0 mmol/L (21-32); Chloride 101.0 mmol/L (98-107); Creatinine Clr Calc Pharmacy 46.0 ml/min; Globulin 3.1 gm/dl (2.5-4.0); Glucose 140.0 mg/dl (70-99(Fasting)); Potassium 3.6 mmol/L (3.5-5.1); Sodium 138.0 mmol/L (136-145); Total Protein 6.6 gm/dl (6.0-8.3)
[2025-06-16 07:32] LABS: ANTI-Xa, UFH(UnfractionatedHep 0.28 IU/ml (0.3-0.7)
[2025-06-16] MEDS: METOPROLOL SUCC 50MG EXT REL TAB PO SCH (08:28)
--- NOTE | 2025-06-16 09:06 | Hospitalist Progress Note ---
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 she was on heparin infusion and then dc on 05/31/2025 with aspirin plavix, and also on metoprolol 150mg, crestor 40mg, and lasix every other day on 06/13/2025, she's return to our hospital with chest pain episode and HR of 150. started for ceftriaxone, imdur for unstable angina, heparin ACS dose CTA negative for dissection, PE, abdominal pain, CT abdomen negative for perforatoin perforation 06/14/2025, CARLIN, hypotensive, holding amlodipine 2.5mg, hold lisinopril given CARLIN holding metoprolol. 1. acute chest pain, unstable angina 2. UTI, suprapubic pain 3. CARLIN, hypotension 4. hx of CAD with LAD, RCA 5. recent stent to right PLB restenosis and residual severe stenosis 6. hematuria 7. CHFpEF, A-flutter 9. diabetes (no longer on insulin) 9. MS 10. umbar disk disease overall plan today appreciate cardiology input about LHC given severe residual stenosis continue to hold lisinopril given CARLIN, hold amlodipine up-titrate metoprolol, imdur as tolerated c/w heparin ACS dose. trending her EKG and troponin level treatment for UTI 1. acute chest pain, unstable angina CTA negative for PE, negative for dissection heparin ACS dose, trend h/h, denied hematuria on heparin imdur 60mg daily for symptomatic control she developed chest pain episode at 5pm on 06/14 chest pain resolved for 48 hours metoprolol XL 200mg daily ranexa 500mg imdur 60 mg continue to hold lisinopril and amlodipine so we can up-titrate her anti-anginal communicate with cardiology requested for medical management 2. UTI, suprapubic discomfort, downgrade to ceftriaxone. 3. CARLIN, hypotension occured on 06/14, holding amlodipine, lisinopril 40mg, and metoprolol 4. lower extremity edema, duplex US 3. hx of multivessel CAD c/w aspirin, plavix, crestor potential increased metoprolol 200mg, imdur 60mg, ranexa 30mg . CHFpEF. A-flutter her home med is metoprolol 209mg Crestor 40mg lasix every other day multiple sclerosis , c/w baclofen 10mg TID, neupro 1mg/24 patch 24 hours pramipexole 0.2m5 BID . hypomagnesium -magnesium 400mg daily (2) Acute UTI: (3) S/P coronary artery stent placement: (4) Chronic heart failure with preserved ejection fraction: (5) Multiple sclerosis: (6) Paroxysmal atrial flutter: Admission and Anticipated Discharge Date Admission Date: June 13, 2025 Subjective she's mentioned intermittent episode of confusion for her unstable angina, no chest pain, no chest pressure, no diaphoresis, no palpitation she's on heparin ACS dose, denied any hematuria she on metoprolol XL 200mg, and imdur, ranexa added for her UTI, denied any dysuira, suprapubinc pain, Review of Systems Review of Systems: Constitutional: No Weight Change, No Fever, No Chills, N\ Cardiovascular: No Chest Pain, No SOB, No PND, No Dyspnea on Exertion, No Orthopnea, No Claudication, No Edema, No Palpitations Respiratory: No Cough, No Sputum, No Wheezing, No Smoke Exposure, No Dyspnea Gastrointestinal: No Nausea, No Vomiting, No Diarrhea, No Constipation, No Pain, No Heartburn, No Anorexia Genitourinary: no dysuria; no hematuria Musculoskeletal: No Arthralgias, No Myalgias, No Joint Swelling, No Joint Stiffness, No Back Pain, No Neck Pain, No Injury History Neuro: + for intermittent confusion. no headache Heme/Lymph: No Bruising, No Bleeding, No Transfusions History, No Lymphadenopathy Endocrine: No Polyuria, No Polydipsia, No Temperature Intolerance Physical Exam Physical Exam: VITALS: Reviewed. WEIGHT/BMI reviewed. GEN: Healthy appearing, well-developed, NAD. HEENT -Head: NC/AT; NECK: Supple, with no masses. CV: RRR, no m/r/g. LUNGS: CTAB, no w/r/c. ABD: Soft, NT/ND, NBS, no masses or organomegaly. no suprapubic pain. MSK: No deformities, Normal gait. EXT: No clubbing, cyanosis, or edema. NEURO: AAOx2 Results & Data Results & Data Vital Signs (Past 12 Hours) Vital Signs Temp Pulse Pulse Resp BP Pulse Ox O2 Del Method 06/16/25 07:45 36.7 C 102 H 18 127/74 94 Room Air 06/16/25 02:36 36.9 C 111 H 18 137/75 92 Room Air 06/15/25 23:11 108 H 06/15/25 22:32 36.8 C 105 H 18 128/74 92 Room Air Laboratory Results Laboratory Results - last 72 hr 06/13/25 06/13/25 06/13/25 07:41 : 13:39 WBC RBC Hgb Hct MCV MCH MCHC RDW Std Deviation RDW Coeff of [place] Plt Count MPV PT 12.3 H INR 1.1 APTT 53 H PTT Ratio 2.0 Heparin Anti-Xa, Unfract VBG pH VBG pCO2 VBG pO2 VBG HCO3 VBG O2 Saturation VBG Base Excess Sodium Potassium Chloride Carbon Dioxide Anion Gap BUN Creatinine Est Cr Clr Drug Dosing eGFR BUN/Creatinine Ratio Glucose POC Glucose Lactate Calcium Magnesium 1.9 Total Bilirubin AST ALT Alkaline Phosphatase Troponin I High Sens 15.6 H Total Protein Albumin Globulin Albumin/Globulin Ratio Lipase 61 06/13/25 06/13/25 06/13/25 15:20 16:56 23:01 WBC 10.78 RBC 4.65 Hgb 12.5 Hct 37.1 MCV 79.8 L MCH 26.9 MCHC 33.7 RDW Std Deviation 45.5 RDW Coeff of [place] 15.7 H Plt Count 263 MPV 9.6 PT INR APTT PTT Ratio Heparin Anti-Xa, Unfract 0.16 L VBG pH VBG pCO2 VBG pO2 VBG HCO3 VBG O2 Saturation VBG Base Excess Sodium 134 L Potassium 4.3 Chloride 101 Carbon Dioxide 23 Anion Gap 10 BUN 15 Creatinine 1.07 Est Cr Clr Drug Dosing 51.6 eGFR 56.93 BUN/Creatinine Ratio 14.0 Glucose 207 H POC Glucose 232 H Lactate 1.8 Calcium 8.9 Magnesium Total Bilirubin 0.6 AST 20 ALT 20 Alkaline Phosphatase 70 Troponin I High Sens Total Protein 7.2 Albumin 3.7 Globulin 3.5 Albumin/Globulin Ratio 1.1 Lipase 57 06/13/25 06/13/25 06/14/25 23:35 23:42 06:32 WBC 10.87 H 9.60 RBC 4.27 4.18 L Hgb 11.0 L 11.2 L Hct 35.2 L 33.6 L MCV 82.4 80.4 MCH 25.8 26.8 MCHC 31.3 L 33.3 RDW Std Deviation 48.4 H 47.0 H RDW Coeff of [place] 16.1 H 16.1 H Plt Count 192 276 MPV 9.8 9.7 PT INR APTT PTT Ratio Heparin Anti-Xa, Unfract 0.21 L 0.25 L VBG pH 7.46 H VBG pCO2 33 L VBG pO2 40 VBG HCO3 24 VBG O2 Saturation 70.5 VBG Base Excess 0.3 Sodium 134 L 136 Potassium 4.4 3.9 Chloride 102 102 Carbon Dioxide 23 24 Anion Gap 9 10 BUN 18 20 Creatinine 1.36 H 1.42 H Est Cr Clr Drug Dosing 40.6 38.9 eGFR 42.69 40.54 BUN/Creatinine Ratio 13.2 14.1 Glucose 229 H 184 H POC Glucose Lactate Calcium 8.7 8.9 Magnesium Total Bilirubin 0.6 AST 16 ALT 17 Alkaline Phosphatase 57 Troponin I High Sens Total Protein 6.9 Albumin 3.5 Globulin 3.4 Albumin/Globulin Ratio 1.0 Lipase 06/14/25 06/14/25 06/14/25 12:59 17:49 20:17 WBC RBC Hgb Hct MCV MCH MCHC RDW Std Deviation RDW Coeff of [place] Plt Count MPV PT INR APTT PTT Ratio Heparin Anti-Xa, Unfract 0.25 L 0.30 VBG pH VBG pCO2 VBG pO2 VBG HCO3 VBG O2 Saturation VBG Base Excess Sodium Potassium Chloride Carbon Dioxide Anion Gap BUN Creatinine Est Cr Clr Drug Dosing eGFR BUN/Creatinine Ratio Glucose POC Glucose Lactate Calcium Magnesium Total Bilirubin AST ALT Alkaline Phosphatase Troponin I High Sens 36.3 H D 37.0 H 36.8 H Total Protein Albumin Globulin Albumin/Globulin Ratio Lipase 06/15/25 06/15/2525 00:20 03:58 06:56 WBC 7.10 RBC 3.76 L Hgb 10.1 L Hct 30.4 L MCV 80.9 MCH 26.9 MCHC 33.2 RDW Std Deviation 47.3 H RDW Coeff of [place] 16.0 H Plt Count 223 MPV 9.4 PT INR APTT PTT Ratio Heparin Anti-Xa, Unfract Cancelled 0.32 VBG pH VBG pCO2 VBG pO2 VBG HCO3 VBG O2 Saturation VBG Base Excess Sodium 136 Potassium 3.6 Chloride 102 Carbon Dioxide 26 Anion Gap 8 BUN 23 Creatinine 1.37 H Est Cr Clr Drug Dosing 40.3 eGFR 42.32 BUN/Creatinine Ratio 16.8 Glucose 171 H POC Glucose Lactate Calcium 8.4 L Magnesium Total Bilirubin 0.5 AST 21 ALT 18 Alkaline Phosphatase 47 Troponin I High Sens 47.1 H D 49.0 H Total Protein 6.2 Albumin 3.4 Globulin 2.8 Albumin/Globulin Ratio 1.2 Lipase 06/15/25 06/15/25 06/16/25 11:47 20:01 06:26 WBC 7.98 RBC 3.88 L Hgb 9.9 L Hct 31.0 L MCV 79.9 L MCH 25.5 MCHC 31.9 L RDW Std Deviation 46.5 H RDW Coeff of [place] 15.9 H Plt Count 241 MPV 9.3 L PT INR APTT PTT Ratio Heparin Anti-Xa, Unfract 0.28 L VBG pH VBG pCO2 VBG pO2 VBG HCO3 VBG O2 Saturation VBG Base Excess Sodium 138 Potassium 3.6 Chloride 101 Carbon Dioxide 27 Anion Gap 10 BUN 22 Creatinine 1.20 Est Cr Clr Drug Dosing 46.0 eGFR 49.61 BUN/Creatinine Ratio 18.3 Glucose 140 H POC Glucose Lactate Calcium 8.6 Magnesium Total Bilirubin 0.4 AST 17 ALT 17 Alkaline Phosphatase 49 Troponin I High Sens 37.5 H D 41.6 H Total Protein 6.6 Albumin 3.5 Globulin 3.1 Albumin/Globulin Ratio 1.1 Lipase PG Care Time/CCT Total # of Minutes Spent Total Time Spent with Patient: Total time spent is greater than 50% in coordination of care (as documented) at patient's floor/unit and/or counseling patient: Coding Level of Care Code 71198 SUB INP/OBS CARE 10/25MIN Diagnoses Chest pain R07.9 Acute UTI N39.0 S/P coronary artery stent placement Z95.5 Chronic heart failure with preserved ejection fraction I50.32 Multiple sclerosis G35 Paroxysmal atrial flutter I48.92 Time Spent (min) 25
--- NOTE | 2025-06-16 14:40 | Communication Note ---
Date of Service: June 16, 2025 nursing noticed 6 watery bowel movement today send for stool PCr, C. difficile testing added vancomycin oral
[2025-06-16 15:45] LABS: ANTI-Xa, UFH(UnfractionatedHep 0.25 IU/ml (0.3-0.7)
[2025-06-16] MEDS: CHERRY SYRUP 5 ML UDP PO SCH (15:59)
[2025-06-16] MEDS: VANCOMYCIN HCL 125 MG/2.5ML SOLN PO SCH (15:59)
[2025-06-16] MEDS ORDERED: Nursing to Pharmacy Communication SCH (19:45)
[2025-06-16 21:15] LABS: Cdiff Toxin B Gene (2yr or >) Positive Cdiff Gene (Neg)
[2025-06-16 21:16] LABS: Cdiff Toxin A+B Negative Cdiff Toxin (Negative)
[2025-06-16 23:30] LABS: ANTI-Xa, UFH(UnfractionatedHep 0.29 IU/ml (0.3-0.7)
[2025-06-17 07:14] LABS: Hematocrit (blood only) 32.0 % (37.0-47.0); Hemoglobin 10.7 g/dl (12.0-16.0); Mean Corpuscular Hemoglobin 26.8 pg (25.0-34.0); Mean Corpuscular Volume 80.0 fL (80.0-100.0); Platelet Count 278 K/uL (130-400); RDW Standard Deviation 46.1 fL (36.4-46.3); Red Blood Count 4.00 M/uL (4.20-5.40); White Blood Count 7.98 K/ul (4.8-10.8)
[2025-06-17 07:25] LABS: Anion Gap 10.0 (3-11); Calcium 9.0 mg/dl (8.6-10.3); Carbon Dioxide 28.0 mmol/L (21-32); Chloride 101.0 mmol/L (98-107); Potassium 3.6 mmol/L (3.5-5.1); Sodium 139.0 mmol/L (136-145)
[2025-06-17 07:26] LABS: ANTI-Xa, UFH(UnfractionatedHep 0.34 IU/ml (0.3-0.7)
[2025-06-17 07:31] LABS: Blood Urea Nitrogen 20.0 mg/dl (6-23); Creatinine Clr Calc Pharmacy 48.0 ml/min; Glucose 137.0 mg/dl (70-99(Fasting))
--- NOTE | 2025-06-17 10:11 | Hospitalist Progress Note ---
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 she was on heparin infusion and then dc on 05/31/2025 with aspirin plavix, and also on metoprolol 150mg, crestor 40mg, and lasix every other day on 06/13/2025, she's return to our hospital with chest pain episode and HR of 150. started for ceftriaxone, imdur for unstable angina, heparin ACS dose CTA negative for dissection, PE, abdominal pain, CT abdomen negative for perforatoin perforation 1. acute chest pain, unstable angina 2. UTI, suprapubic pain 3. CARLIN, hypotension 4. hx of CAD with LAD, RCA 5. recent stent to right PLB restenosis and residual severe stenosis 6. hematuria 7. CHFpEF, A-flutter 9. diabetes (no longer on insulin) 9. MS 10. umbar disk disease overall plan today appreciate cardiology input about LHC given severe residual stenosis continue to hold lisinopril given CARLIN, hold amlodipine up-titrate metoprolol, imdur as tolerated Discontinuing heparin and have the patient ambulate to see if she can be transition to rehab treatment for UTI 1. acute chest pain, unstable angina CTA negative for PE, negative for dissection metoprolol XL 200mg daily ranexa 500mg imdur 60 mg continue to hold lisinopril and amlodipine so we can up-titrate her anti-anginal communicate with cardiology requested for medical management 2. UTI, suprapubic discomfort, And sensitive E. coli complete 3 days of treat 3. CARLIN, hypotensionresolved improved occured on 06/14, holding amlodipine, lisinopril 40mg, and metoprolol 4. lower extremity edema, secondary to heart failure preserved ejection fraction improved 3. hx of multivessel CAD c/w aspirin, plavix, crestor potential increased metoprolol 200mg, imdur 60mg, ranexa 30mg . CHFpEF. A-flutter her home med is metoprolol 200mg Crestor 40mg lasix every other day multiple sclerosis , c/w baclofen 10mg TID, neupro 1mg/24 patch 24 hours pramipexole 0.2m5 BID . hypomagnesium -magnesium 400mg daily (2) Acute UTI: (3) S/P coronary artery stent placement: (4) Chronic heart failure with preserved ejection fraction: (5) Multiple sclerosis: (6) Paroxysmal atrial flutter: Admission and Anticipated Discharge Date Admission Date: June 13, 2025 Subjective Patient says she is feeling quite well she has been ambulating about her room without chest discomfort, going forward to getting to rehab Physical Exam Physical Exam: Pleasant no significant distress Card exam is regular lungs are clear catheterization site is clean dry and intac t Abdomen NABS soft and nontender Results & Data Results & Data Vital Signs (Past 12 Hours) Vital Signs Temp Pulse Pulse Pulse Resp BP Pulse Ox 06/17/25 07:51 06/17/25 06:56 98.2 F 85 18 134/73 95 06/17/25 05:47 84 06/17/25 03:00 95 06/17/25 02:29 98.1 F 87 18 129/72 90 06/16/25 23:28 88 06/16/25 22:46 98.1 F 87 18 132/76 94 O2 Del Method 06/17/25 07:51 Room Air 06/17/25 06:56 Room Air 06/17/25 05:47 06/17/25 03:00 Room Air 06/17/25 02:29 Room Air 06/16/25 23:28 06/16/25 22:46 Room Air Laboratory Results Reviewed CBC reviewed chemistry PG Care Time/CCT Total # of Minutes Spent Total Time Spent with Patient: Total time spent is greater than 50% in coordination of care (as documented) at patient's floor/unit and/or counseling patient: Coding Level of Care Code 20894 SUB INP/OBS CARE 3/50MIN Diagnoses Chest pain R07.9 Acute UTI N39.0 S/P coronary artery stent placement Z95.5 Chronic heart failure with preserved ejection fraction I50.32 Multiple sclerosis G35 Paroxysmal atrial flutter I48.92
[2025-06-17 18:05] LABS: Adenovirus F 40/41 PCR Not Detected (NotDetected); Campylobacter PCR Not Detected (NotDetected); Enteroaggregative E.coli(EAEC) Not Detected (NotDetected); Shiga-like Toxin E.coli (STEC) Not Detected (NotDetected); Vibrio species PCR Not Detected (NotDetected)
[2025-06-17] MEDS: FUROSEMIDE 20 MG TAB PO SCH (18:21)
[2025-06-17 19:17] VITALS: RESP 18
[2025-06-18 06:37] LABS: ANTI-Xa, UFH(UnfractionatedHep < 0.10 IU/ml (0.3-0.7)
[2025-06-18 07:15] VITALS: O2SAT 92
[2025-06-18] MEDS: APIXABAN 5 MG TABLET PO SCH (09:38)
[2025-06-18 11:24] VITALS: TEMP 97.9
[2025-06-18] MEDS: DICLOFENAC SOD 1% GEL 100 GM TUBE EXT ONE (11:27)
[2025-06-18 13:15] VITALS: BP 124/73
[2025-06-18 13:33] VITALS: PULSE 87
--- NOTE | 2025-06-18 14:34 | Discharge Summary ---
Discharge Summary Date of Service June 18, 2025 Principal Dx & Hospital Course #1 = Principal Diagnosis (1) Chest pain: Lillian Anders is a 69 yo woman with PMH of CAD, A-flutter, chronic CHFpEF, diabetes (off insulin), MS, lumbar desk disorder for her CAD; has prior LAD, RCA, PLB. from 05/28--05/31, was here for NSTEMI , s/p LHC and found moderate to severe in stent re-stenosis of mid LAD and mid RCA stents also found 95% stenosis of prixmal PLB and s/p angioplasty of proximal right PLB with 1.5mm balloon, our physician vice president noted difficulty to large balloon across distal RCA in stent restenosis. she was on heparin infusion and then dc on 05/31/2025 with aspirin plavix, and also on metoprolol 150mg, crestor 40mg, and lasix every other day on 06/13/2025, she's return to our hospital with chest pain episode and HR of 150. started for ceftriaxone, imdur for unstable angina, heparin ACS dose CTA negative for dissection, PE, abdominal pain, CT abdomen negative for perforation appreciate cardiology input about LHC given severe residual stenosis continue to hold lisinopril given CARLIN, hold amlodipine up-titrate metoprolol, imdur as tolerated treatment for UTI 1. acute chest pain, unstable angina CTA negative for PE, negative for dissection metoprolol XL 200mg daily ranexa 500mg imdur 60 mg continue to hold lisinopril and amlodipine so we can up-titrate her anti-anginal communicate with cardiology requested for medical management 2. UTI, suprapubic discomfort, And sensitive E. coli complete 3 days of treat 3. CARLIN, hypotensionresolved improved occurred on 06/14, holding amlodipine, lisinopril 40mg, 4. lower extremity edema, secondary to heart failure preserved ejection fraction improved 3. hx of multivessel CAD c/w aspirin, plavix, crestor increased metoprolol 200mg, imdur 60mg, ranexa 30mg . CHFpEF. A-flutter her home med is metoprolol 200mg Crestor 40mg lasix every other day multiple sclerosis , c/w baclofen 10mg TID, neupro 1mg/24 patch 24 hours pramipexole 0.2m5 BID . hypomagnesium -magnesium 400mg daily (2) Acute UTI: (3) S/P coronary artery stent placement: (4) Chronic heart failure with preserved ejection fraction: (5) Multiple sclerosis: (6) Paroxysmal atrial flutter: Notes For Next Care Provider Cardiogram did not show reduction in ejection fraction therefore TAD inhibitor is not required to treat heart failure. Cautious titration of antianginal medications with continued holding of lisinopril and amlodipine unless blood pressure treatment is required Admission HPI Per Admitting Provider Lillian Jacques is a 69 yo woman with PMH of CAD with prior LAD, RCA, and PLBD with strenosis, , diabetes, CHFpEF, A-flutter, MS, hematuria, lumbar facet joint syndrome, cervical myelopathy, hypertension she was hospitalized in our facility in may 2025 for chest pain episode s/p LHC on on 05/29, s/p angioplasty of proximal right PLB with 1.5mm ballon. at that time, cardiology noted unable to pass larger balloon across distal RCA for in stent stenosis, and noted residual severe stenosis she was recommended heparin for 24 hours and then on aspirin, plavix and metoprolol per the patient she has no hematuria for several months. on 06/13/2025, she's was brought back to the hospital with chest pain episode and also found to has tachycardia with HR in 150 also noted to has UTI she will be admitted to medicine services for unstable angina, ruling out PE treatment for UTI she is is a poor historian but requested for full code Discharge Exam Awake alert appropriate Card exam is regular today Lungs are clear without wheezes or crackles extremities are with trace edema Discharge Plan Discharge Items Patient Disposition: Transfer Inpatient Rehab Fac Reason For Visit: UTI, A-FIB, ??PE Discharge Diagnosis: unstable angina, unable to place stent in coronary artery on previous stay left heart cath, continue medical management UTI poa= méndez sensitive e coli acute kidney injury resolved atrial flutter rapid rate control on apixiban/metoprolol multiple sclerosis stable Condition on Discharge: Fair Activity: Per Instructions section Activity Comment: per PT/OT at rehab Non-emergency contact: Primary Care Provider and Surgery Assistant Call non-emergency contact if: your symptoms worsen Follow-up/Referrals: Akilah Cook PA-C [Primary Care Provider] - Diet: Heart Healthy Addtl Attending Provider Instructions: chest pain was contributed to your rapid heart rate, this is now controlled and your medications have been adjusted, you are also completing treatment for a urinary tract infection that likely impacted your overall illness on presentation Pending Studies at Discharge: No Stand-Alone Forms: My [facility] Skilled Items Patient informed of condition?: Yes DNR: No Discharge Level of Care: Acute rehab Communicable Disease: No Discharge Prognosis: Stable Lines: None Urinary Catheter: No Medications and DC Order Prescriptions: New isosorbide mononitrate 60 mg Tablet Extended Release 24 Hr 60 mg PO QAM Qty: 30 0RF ranolazine 500 mg Tablet Extended Release 12 Hr 500 mg PO DAILY Qty: 30 4RF apixaban 5 mg tablet 5 mg PO BID Qty: 60 4RF Continued aspirin [Adult Low Dose Aspirin] 81 mg tablet,delayed release (DR/EC) 81 mg PO DAILY clopidogrel [Plavix] 75 mg tablet 75 mg PO DAILY Qty: 90 3RF Hold Instructions: Resume on 11/04/24. lidocaine 4 % adhesive patch,medicated 1 patch topical DAILY PRN (Reason: Pain) baclofen 10 mg tablet 10 mg PO TID Qty: 180 3RF acetaminophen [Tylenol Extra Strength] 500 mg tablet 1,000 mg PO Q8H PRN (Reason: Pain) magnesium oxide 400 mg (241.3 mg magnesium) Tablet 400 mg PO QAM Qty: 0 0RF Rx Instructions: hold if diarrhea insulin glargine [Lantus U-100 Insulin] 100 unit/mL Solution 5 unit SC DAILY Qty: 0 0RF rosuvastatin 40 mg tablet 40 mg PO DAILY Neupro 1 mg/24 hour patch 24 hour 1 patch transdermal DAILY pramipexole 0.25 mg Tablet 0.5 mg PO BID ezetimibe 10 mg tablet 10 mg PO DAILY Ozempic 0.25 mg or 0.5 mg (2 mg/3 mL) pen injector 0.25 mg SUBCUT WK Changed metoprolol succinate 100 mg tablet extended release 24 hr 200 mg PO DAILY Qty: 60 5RF furosemide 20 mg tablet 20 mg PO DAILY Qty: 30 3RF Discontinued lisinopril 20 mg tablet 40 mg PO DAILY 30 Days Qty: 90 0RF amlodipine 2.5 mg tablet 2.5 mg PO DAILY Qty: 30 3RF Discharge Orders: Discharge Order (Routine); Ordered 06/18/25 Ordered By: Forrest Villalba Admission Data Admit Date/Time: 06/13/25 07:57 Attending Provider: Forrest Villalba Admit Provider: Sage Fitzpatrick Primary Care Provider: Akilah Cook Other Providers: Sage Fitzpatrick; Santino Mcdermott; [facility] Other Interventions: Discharge Summary Assessment (RN) Last Done: 06/18/25 13:23 Hospital Stay Data Consultations 06/13/25 06:04 ED Decision to Admit Stat 06/13/25 08:31 Consult Cardiology Stat Diagnostic Imagining Performed 06/13/25 14:01 CT for pulmonary embolism PE [CT angio chest PE protocol] Stat 06/13/25 16:26 CT Abdomen and Pelvis [CT abd pelvis wo con] Stat Pending Results Patient Have Any Pending Studies at Discharge: No Discharge Instructions Given to Patient (Per Discharging Provider) chest pain was contributed to your rapid heart rate, this is now controlled and your medications have been adjusted, you are also completing treatment for a urinary tract infection that likely impacted your overall illness on presentation Total Time Total Time Spent Total Time Spent (In Minutes): I personally have spent greater than 30 minutes of time on the patient discharge today including review of tests, documentation, exam, and discussing treatment plan moving forward with the patient. Coding Level of Care Code 74020 INP/OBS DISCH >30 MIN Diagnoses Chest pain R07.9 Acute UTI N39.0 S/P coronary artery stent placement Z95.5 Chronic heart failure with preserved ejection fraction I50.32 Multiple sclerosis G35 Paroxysmal atrial flutter I48.92
--- NOTE | 2025-06-18 16:04 | Electrocardiogram Report ---
Test Reason : Blood Pressure : */* mmHG Vent. Rate : 123 BPM Atrial Rate : 123 BPM P-R Int : 104 ms QRS Dur : 86 ms QT Int : 418 ms P-R-T Axes : * 31 51 degrees QTcB Int : 598 ms Sinus tachycardia with short CO ST elevation consider inferior injury or acute infarct Inferior leads Abnormal ECG When compared with ECG of 13-Jun-2025 14:17, (unconfirmed) ST now depressed in Lateral leads Confirmed by Santino Mcdermott ([id number]) on 06/18/2025 4:04:01 PM Referred By: REFERRED SELF Confirmed By: Santino Mcdermott
--- NOTE | 2025-06-18 16:05 | Electrocardiogram Report ---
Test Reason : Blood Pressure : */* mmHG Vent. Rate : 107 BPM Atrial Rate : 107 BPM P-R Int : 174 ms QRS Dur : 92 ms QT Int : 342 ms P-R-T Axes : 67 23 14 degrees QTcB Int : 456 ms Sinus tachycardia Nonspecific T wave abnormality Abnormal ECG When compared with ECG of 14-Jun-2025 17:16, (unconfirmed) ST no longer depressed in Lateral leads T wave inversion more evident in Inferior leads Inferior injury pattern less evident Confirmed by Santino Mcdermott ([id number]) on 06/18/2025 4:05:29 PM Referred By: REFERRED SELF Confirmed By: Santino Mcdermott
--- NOTE | 2025-06-18 16:09 | Electrocardiogram Report ---
Test Reason : Blood Pressure : */* mmHG Vent. Rate : 104 BPM Atrial Rate : 104 BPM P-R Int : 176 ms QRS Dur : 82 ms QT Int : 350 ms P-R-T Axes : 59 16 23 degrees QTcB Int : 460 ms Sinus tachycardia Otherwise normal ECG When compared with ECG of 15-Jun-2025 05:04, (unconfirmed) No significant change was found Confirmed by Santino Mcdermott ([id number]) on 06/18/2025 4:09:30 PM Referred By: REFERRED SELF Confirmed By: Santino Mcdermott
== END 2025-06-18 14:12 | DRG 281 ==
LOC: ED 02:44 → SUATTDRO 07:57 → 2S 07:57

== ENCOUNTER 2025-09-07 21:13 | Inpatient (IN) ==
--- NOTE | 2025-09-07 22:02 | Emergency Department Note ---
Impression & Plan Acute UTI Admission ED Provider Note HPI: History obtained from patient. The patient is a 69-year-old female with history of multiple sclerosis, CAD, presents the emergency department with a chief complaint of generalized weakness. Patient states today she had to lower herself to the floor because she felt so weak. Patient denies any chest pain, denies any shortness of breath, denies any recent fever. Patient states that her symptoms have been progressive over the course of several months. Patient states that she is incontinent of urine for about the past 6 months. She complains of a fairly severe rash to her bilateral groin fold and buttocks. On arrival here to the ED the patient is alert, she is hemodynamically stable, she does not have any focal deficits. ROS: - Per HPI Differential Diagnosis: Urinary tract infection, sepsis, MS flare, acute on chronic deconditioning, dehydration/acute kidney injury, critical electrolyte abnormalities to include hyponatremia, ACS, acute CHF exacerbation, amongst other potential pathologies. *Outpatient medications and allergy history reviewed. PE: General: Alert, obese, no acute distress HEENT: Normocephalic, trachea midline Eyes: Extraocular eye movement is intact, no scleral erythema Pulmonary: Clear to auscultation bilaterally, no wheezing Cardio: Regular rate and rhythm GI: Abdomen is soft to palpation : No suprapubic tenderness MSK: No evidence of trauma or malformation of the extremities, no edema Skin: Moist erythema to the bilateral groin folds and buttocks consistent with a yeast dermatitis, otherwise no evidence of rash Neuro: Alert, no focal deficits Psychiatric: Cooperative INDEPENDENT INTERPRETATIONS: industrial designer: (As interpreted by myself): - An order was placed for continuous cardiac monitoring - Patient was noted to be in sinus rhythm with a rate of 105 EKG: (As interpreted by myself): Rate: 89 Rhythm: Normal sinus rhythm Intervals: Within normal limits ST changes: No ST elevation Time: 2120 Interventions provided in ED: - IV morphine, IV Zofran, IV ceftriaxone, IV fluid bolus, nystatin ointment Medical Decision Making: IV was established and lab work obtained with some delay secondary to difficulty with access, lab work shows no leukocytosis, hemoglobin is stable at 11.2, platelet count is normal, CMP does not show any evidence of any acute findings. Troponin is negative. Urinalysis appears consistent with possible infection, urine nitrite is positive and there is 3+ leukocyte esterase with significant pyuria, 4+ bacteria but also evidence of epithelial cells, will send for culture and given the patient's weakness will start IV ceftriaxone. Blood cultures were also ordered. Patient has significant erythema in the groin folds consistent with a yeast dermatitis. Nystatin was ordered for this. Patient describes increasing weakness recently to the point where she was having difficulty today ambulating with her walker. She has had increasing urinary incontinence which could be related to urinary tract infection or possibly MS. She denies any headache, denies any visual changes. Overall the patient does not appear well for discharge back home as she has not been doing well at home, her is in agreement that the patient would benefit from admission and PT/OT consultation and possibly neurology consultation as well. [facility] hospitalist service was consulted for admission and the patient was placed for admission in stable condition. Consultants/Discussions held with other healthcare providers: - Hospitalist, Dr. Nascimento Disposition discussion held by myself with: - Patient and patient's at the bedside Diagnosis: 1. Ambulatory dysfunction, acute on chronic 2. Urinary tract infection, acute 3. History of MS 4. Yeast dermatitis of the bilateral groin folds, acute 5. Urinary incontinence, acute 6. Difficulty achieving basic activities of daily living, acute Disposition: Admission Ramirez Bryan DO Emergency Medicine Past Med/Surg History Problem List (Updated 09/08/25 @ 01:17 by Ramirez Bryan DO) Acute UTI (Acute) Renal insufficiency Coronary artery disease Sinus tachycardia (Acute) Chest pain (Acute) S/P coronary artery stent placement Chronic heart failure with preserved ejection fraction Gross hematuria Diabetes mellitus Multiple sclerosis Proteinuria Ataxia Urinary incontinence Leg weakness Norovirus Paroxysmal atrial flutter Acute on chronic heart failure with preserved ejection fraction (HFpEF) Acute hypercapnic respiratory failure CARLIN (acute kidney injury) Dystonia Cervical myelopathy Demyelinating disease of central nervous system Carotid stenosis, right Elevated lactic acid level (Acute) Elevated troponin (Acute) Seizure-like activity (Acute) Acute UTI (Acute) Tachycardia (Acute) Hypertension (Acute) Altered mental status (Acute) Encephalopathy Septic shock Pyelonephritis Hypotension Elevated troponin Seizure-like activity Lumbar spondylosis Lumbar stenosis with neurogenic claudication Spondylolisthesis, lumbar region Scoliosis of lumbar region due to degenerative disease of spine in adult Left leg weakness Recurrent UTI Sciatica (Acute) Fever (Acute) CHF (congestive heart failure) Acute metabolic encephalopathy Tachycardia Uncontrolled type 2 diabetes mellitus with hyperglycemia Altered mental status Sepsis Lumbar facet joint syndrome Spinal stenosis, lumbar region without neurogenic claudication Hypercholesteremia HTN (hypertension) (Acute) Restless leg Medical History Type [address] elevation Acute UTI Surgical History History of lumbar surgery Social History Smoking Status: Never smoker Tobacco Type: Cigarettes Second Hand Exposure: No; Do You Dip or Chew Tobacco: No; Hx Alcohol Use: No Hx Substance Use: No Preferred Language: Vietnamese Communication Ability: Impaired Visual Impairment: Limited Hearing Ability: Hard of Hearing Director Of Adult Epilepsy Required: No Beliefs That Will Affect Care: None marital status: Current Living Situation: Spouse and Family Current Living Situation Comment: With older grandkids current occupational status: retired Feels Safe at Home: Yes Assistive Devices: Walker and Other Allergies Allergies Allergy/AdvReac Type Severity Reaction Status Date / Time bee venom protein (honey bee) Allergy Severe DIFFICULTY Verified 08/31/25 10:52 BREATHING/HIVES/ITCHY Home Meds Home Medications Medication Instructions Recorded Confirmed acetaminophen 500 mg tablet 1,000 mg PO Q8H PRN Pain 11/27/24 09/08/25 (Tylenol Extra Strength) rosuvastatin 40 mg tablet 40 mg PO DAILY 02/06/25 09/08/25 pramipexole 0.25 mg tablet 0.5 mg PO BID 05/28/25 09/08/25 ezetimibe 10 mg tablet 10 mg PO DAILY 06/13/25 09/08/25 semaglutide 0.25 mg or 0.5 mg (2 0.25 mg subcut WK 06/13/25 09/08/25 mg/3 mL) subcutaneous pen injector (Ozempic) amlodipine 10 mg tablet 10 mg PO DAILY 09/08/25 09/08/25 metoprolol tartrate 100 mg tablet 200 mg PO DAILY 09/08/25 09/08/25 Previous Rx's Medication Instructions Recorded magnesium oxide 400 mg (241.3 mg 400 mg PO QAM #0 tabs 11/04/24 magnesium) tablet baclofen 10 mg tablet 10 mg PO TID #180 tabs 05/26/25 apixaban 5 mg tablet 5 mg PO BID #60 tabs 06/18/25 isosorbide mononitrate 60 mg 60 mg PO QAM #30 tabs 06/18/25 tablet,extended release 24 hr ranolazine 500 mg tablet,extended 500 mg PO DAILY #30 tabs 06/18/25 release,12 hr ocrelizumab 30 mg/mL intravenous 300 mg (10 mL) IV .COMPLEX #20 mL 07/07/25 solution (Ocrevus) furosemide 20 mg tablet 20 mg PO BID #30 tabs 07/20/25 potassium chloride 20 mEq 20 meq PO DAILY #30 tabs 07/20/25 tablet,extended release(part/cryst) methenamine hippurate 1 gram tablet 1 g PO BID #60 tabs 08/11/25 nystatin 100,000 unit/gram topical 1 applic topical BID #60 grams 08/11/25 powder Results & Data (ED) Vital Signs Vital Signs - 24 hr 09/07/25 21:22 09/07/25 21:42 09/07/25 22:00 Temperature 36.7 C Temperature Source Oral Pulse Rate 90 87 Pulse Rate [Apical] Respiratory Rate 16 Respiratory Effort / Characteristics Non-Labored Spontaneous Respiratory Depth Normal Blood Pressure 133/76 Blood Pressure [Right Arm] Blood Pressure Mean 95 Blood Pressure Mean [Right Arm] Pulse Oximetry 98 Oxygen Delivery Method Room Air Room Air Sepsis Recent Fever Within 48 Hours No Sepsis New/Unexplained Change in Mental Status No Sepsis Action Taken by Nursing No Action Required 09/07/25 22:03 09/07/25 23:28 09/08/25 01:08 Temperature Temperature Source Pulse Rate Pulse Rate [Apical] 105 H 110 H Respiratory Rate 20 Respiratory Effort / Characteristics Non-Labored Respiratory Depth Normal Blood Pressure Blood Pressure [Right Arm] 133/68 128/71 Blood Pressure Mean Blood Pressure Mean [Right Arm] 89 90 Pulse Oximetry 95 96 94 Oxygen Delivery Method Room Air Room Air Room Air Sepsis Recent Fever Within 48 Hours Sepsis New/Unexplained Change in Mental Status Sepsis Action Taken by Nursing Laboratory Data 09/08/25 00:04 09/08/25 00:04 Lab Results 09/07/25 09/07/25 09/08/25 Range/Units 23:05 23:23 00:04 WBC 7.06 (4.8-10.8) K/ul RBC 4.79 (4.20-5.40) M/uL Hgb 11.2 L (12.0-16.0) g/dL Hct 35.7 L (37.0-47.0) % MCV 74.5 L (80.0-100.0) fL MCH 23.4 L (25.0-34.0) pg MCHC 31.4 L (32.0-36.0) g/dL RDW Std Deviation 41.6 (36.4-46.3) fL RDW Coeff of [place] 15.5 H (11.5-14.5) % Plt Count 377 (130-400) K/uL MPV 9.5 (9.4-12.4) fL Immature Gran % (Auto) 0.3 % Neut % (Auto) 68.8 % Lymph % (Auto) 18.7 % [place] % (Auto) 9.2 % Eos % (Auto) 2.3 % Baso % (Auto) 0.7 % Neut # (Auto) 4.86 (1.40-6.50) K/uL Lymph # (Auto) 1.32 (1.20-3.40) K/uL [place] # (Auto) 0.65 H (0.11-0.59) K/uL Eos # (Auto) 0.16 (0.00-0.50) K/uL Baso # (Auto) 0.05 (0.00-0.20) K/uL Immature Gran # (Auto) 0.02 (0.01-0.20) K/uL PT 11.5 (9.0-12.0) Seconds INR 1.1 (0.9-1.1) APTT 28 (21-31) Seconds PTT Ratio 1.0 Sodium 136 (136-145) mmol/L Potassium TNP Chloride 102 (98-107) mmol/L Carbon Dioxide 24 (21-32) mmol/L Anion Gap 10 (3-11) BUN 18 (6-23) mg/dl Creatinine 1.03 (0.6-1.2) mg/dl Est Cr Clr Drug Dosing 55.4 ml/min eGFR 59.60 BUN/Creatinine Ratio 17.5 (10-20) Glucose 292 H (70-99(Fasting)) mg/dl Calcium 9.0 (8.6-10.3) mg/dl Magnesium 1.8 (1.7-2.4) mg/dl Total Bilirubin 0.5 (0.2-1.0) mg/dl AST TNP ALT 15 (7-52) U/L Alkaline Phosphatase 115 H (34-104) U/L Troponin I High Sens 10.1 (0-14) pg/ml Total Protein 7.4 (6.0-8.3) gm/dl Albumin 3.7 (3.4-5.0) gm/dl Globulin 3.7 (2.5-4.0) gm/dl Albumin/Globulin Ratio 1.0 (0.9-2) TSH 3.287 (0.300-4.500) uIu/ml Urine Color Yellow Urine Appearance Turbid A (Clear) Urine pH 5.5 (4.5-7.5) Ur Specific [place] 1.021 (1.000-1.030) Urine Protein 2+ H (Negative) Urine Glucose (UA) 3+ H (Negative) Urine Ketones Trace H (Negative) Urine Blood 3+ H (Negative) Urine Nitrite Positive A (Negative) Urine Bilirubin Negative (Negative) Urine Urobilinogen Negative (Negative) Ur Leukocyte Esterase 3+ H (Negative) Urine WBC (Auto) >50 H (0-5) /hpf Urine RBC (Auto) >20 H (0-2) /hpf U Hyaline Cast (Auto) 3-5 H (0-2) /lpf U Epithel Cells (Auto) 11-20 H (0-2) /hpf Urine Bacteria (Auto) 4+ H (None Seen) Urine Comment SARS-CoV-2 (PCR) NEGATIVE (Negative) Influenza Type A (PCR) Negative (Neg) Influenza Type B (PCR) Negative (Neg) RSV (RT-PCR) Negative (Neg) Administered Medications Discontinued Medications Sodium Chloride (Nss) 500 mls @ 999 mls/hr IV .Q31M ONE Stop: 09/07/25 22:29 Last Infusion: 09/07/25 22:55 Dose: Infused Documented By: becca Admin: 09/07/25 22:26 Dose: 999 mls/hr Documented By: becca Morphine Sulfate (Morphine Sulfate 2 Mg/Ml Carp) 2 mg IV NOW STA Stop: 09/07/25 22:00 Last Admin: 09/07/25 22:26 Dose: 2 mg Documented By: becca Nystatin (Nystatin Oint 15 Gm Tube) 1 appln EXT NOW STA Stop: 09/07/25 22:01 Last Admin: 09/07/25 23:26 Dose: 1 appln Documented By: becca Ondansetron HCl (Ondansetron Inj 2 Mg/Ml 2 Ml Vial) 4 mg IV NOW STA Stop: 09/07/25 22:00 Last Admin: 09/07/25 22:25 Dose: 4 mg Documented By: becca Discharge Plan Visit Data Chief Complaint: Weakness Stated Complaint: WEAKNESS ED Provider: Ramirez Bryan Discharge Problem: Acute UTI Patient Disposition: Admitted As Inpatient Condition: Fair Forms Stand Alone Forms: [facility] Prescriptions Prescriptions: No Action methenamine hippurate 1 gram tablet 1 g PO BID Qty: 60 3RF nystatin 100,000 unit/gram powder 1 applic topical BID Qty: 60 0RF furosemide 20 mg tablet 20 mg PO BID Qty: 30 3RF Rx Instructions: take 2 tabs in am, 1 tab 6-7 hours later for 1 week. Then 1 tab in am and 1 tab 6-7 hours later daily. potassium chloride 20 mEq tablet,ER particles/crystals 20 meq PO DAILY Qty: 30 2RF baclofen 10 mg tablet 10 mg PO TID Qty: 180 3RF Ocrevus 30 mg/mL solution 300 mg IV .COMPLEX Qty: 20 1RF Rx Instructions: 300 mg intravenously day 1 and day 15, then 600mg Q6M; 30 minutes before each infusion,premedicate with methylprednisolone 100mg IV, diphenhydramine 25mg IV,and acetaminophen 500mg PO. May give an additional 25mg diphenhydramine IV during infusion PRN acetaminophen [Tylenol Extra Strength] 500 mg tablet 1,000 mg PO Q8H PRN (Reason: Pain) metoprolol tartrate 100 mg tablet 200 mg PO DAILY amlodipine 10 mg tablet 10 mg PO DAILY magnesium oxide 400 mg (241.3 mg magnesium) Tablet 400 mg PO QAM Qty: 0 0RF Rx Instructions: hold if diarrhea rosuvastatin 40 mg tablet 40 mg PO DAILY pramipexole 0.25 mg Tablet 0.5 mg PO BID ezetimibe 10 mg tablet 10 mg PO DAILY Ozempic 0.25 mg or 0.5 mg (2 mg/3 mL) pen injector 0.25 mg SUBCUT WK Rx Instructions: SUNDAY isosorbide mononitrate 60 mg Tablet Extended Release 24 Hr 60 mg PO QAM Qty: 30 0RF ranolazine 500 mg Tablet Extended Release 12 Hr 500 mg PO DAILY Qty: 30 4RF apixaban 5 mg tablet 5 mg PO BID Qty: 60 4RF Referrals Referrals: Akilah Cook PA-C [Outside Practitioners] -
[2025-09-07] MEDS: ONDANSETRON INJ 2 MG/ML 2 ML VIAL IV STA (22:25)
[2025-09-07] MEDS: SODIUM CHLORIDE 0.9% 500 ML IV ONE (22:26)
[2025-09-07] MEDS: MoRPHine SULFATE 2 MG/ML CARP IV STA (22:26)
[2025-09-07] MEDS: NYSTATIN OINT 15 GM TUBE EXT STA (23:26)
[2025-09-07 23:58] LABS: Appearance Urine Turbid (Clear); Bacteria Urine Automated 4+ (None Seen); Glucose Urine UA 3+ (Negative); RBC Urine Automated >20 /hpf (0-2); WBC Urine Automated >50 /hpf (0-5)
[2025-09-08 00:22] LABS: Hematocrit (blood only) 35.7 % (37.0-47.0); Hemoglobin 11.2 g/dL (12.0-16.0); Immature Granulocytes # (auto) 0.02 K/uL (0.01-0.20); Immature Granulocytes % (auto) 0.3 %; Mean Corpuscular Hemoglobin 23.4 pg (25.0-34.0); Mean Corpuscular Volume 74.5 fL (80.0-100.0); Platelet Count 377 K/uL (130-400); RDW Standard Deviation 41.6 fL (36.4-46.3); Red Blood Count 4.79 M/uL (4.20-5.40); White Blood Count 7.06 K/ul (4.8-10.8)
[2025-09-08 00:36] LABS: Influenza A virus by PCR Negative (Neg); Influenza B virus by PCR Negative (Neg); SARS CoV2 RNA(COVID-19) Ceph NEGATIVE (Negative)
[2025-09-08 00:56] LABS: Alanine Aminotransferase 15 U/L (7-52); Albumin Globulin Ratio 1.0 (0.9-2); Albumin Level 3.7 gm/dl (3.4-5.0); Alkaline Phosphatase 115 U/L (34-104); Anion Gap 10 (3-11); Bilirubin,Total 0.5 mg/dl (0.2-1.0); Blood Urea Nitrogen 18 mg/dl (6-23); Calcium 9.0 mg/dl (8.6-10.3); Carbon Dioxide 24 mmol/L (21-32); Chloride 102 mmol/L (98-107); Creatinine Clr Calc Pharmacy 55.4 ml/min; Globulin 3.7 gm/dl (2.5-4.0); Glucose 292 mg/dl (70-99(Fasting)); Magnesium 1.8 mg/dl (1.7-2.4); Sodium 136 mmol/L (136-145); Thyroid Stimulating Hormone 3.287 uIu/ml (0.300-4.500); Total Protein 7.4 gm/dl (6.0-8.3)
[2025-09-08 00:57] LABS: INR 1.1 (0.9-1.1); Partial Thromboplastin Time 28 Seconds (21-31); Prothrombin Time 11.5 Seconds (9.0-12.0)
--- NOTE | 2025-09-08 01:23 | History & Physical Report ---
Date of Service September 08, 2025 Assessment & Plan (1) Weakness: (2) Acute UTI: (3) Ambulatory dysfunction: (4) Elevated alkaline phosphatase level: (5) Type 2 diabetes mellitus: Plan 69-year-old female PMHx HFpEF, T2DM, HTN, hypercholesterolemia, CAD s/p stent, chronic leg/back pain, history of seizure-like activity, MS, A-flutter, and history of UTIs presenting for weakness the evening of arrival. Her evaluation was without leukocytosis or leukopenia, and a slightly decreased H&H at 11.2/35.7. Glucose elevated at 292 upon arrival. Her alkaline phosphatase is slightly elevated at 115. UA suspicious for infection versus contamination, will treat her as if this is an acute infection until urine cultures return. Admission for IV antibiotics as well as for worsening ambulatory dysfunction. #Weakness/UTI/Ambulatory Dysfunction Weakness the night of arrival, had to lower herself to the ground per her report. Her workup is suspicious for a possible UTI versus contamination, culture is pending, also with history of Pseudomonas on prior cultures. Patient does have a history of MS, it is possible that she is having a flare, however she is without neurologic changes or visual changes and the symptoms have been occurring for less than 24 hours at this point. Patient has ambulatory dysfunction at baseline, appears to be worsening. Will treat with IV antibiotics, if weakness does not improve then can consider further evaluation for an MS flare vs other etiology, but UTI appears to be most likely etiology at present. - CBC without leukocytosis/leukopenia, H&H 11.2/35.7; CMP glucose 292, alkaline phosphatase 115; troponin 10.1; TSH 3.287 - COVID/flu/RSV negative - Blood cx pending - UA suspicious for infection; pending cx - CXR pending official read - Fall precautions - Zofran prn N/V - Acetaminophen prn fever/pain - Cefepime IV - Consider MRI/Neuro consult as appropriate - PT/OT ordered - appreciate assistance #Elevated alkaline phosphatase No abdominal pain, N/V. Has had elevated levels in the past as well. No tenderness on abdominal exam during palpation. No DEXA scan found in chart. - CTAP from 06/13/2025 revealed hepatic steatosis/hepatomegaly, no gallstones or additional changes - Trend alk phos as appropriate #T2DM H/o DMT2; At home regimen includes Ozempic weekly (Mondays). - Glucose on arrival 292; Most recent A1C 05/2025 @ 8.4% - Deferred SSI - BSG daily - Adjust regimen as needed #MS- Follows with neurology, most recent visit 08/31/2025; Ocrelizumab - continue in outpatient setting #Dermatological- Nystatin - continue #HTN- Amlodipine - continue #Aflutter- Eliquis - continue #Hypercholesterolemia- Ezetimibe, rosuvastatin - continue #HFpEF- Furosemide (KCl supplementation), metoprolol - continue #Chronic UTI- Is scheduled to have an outpatient appointment with urology for recurrent UTIS; Methenamine hippurate - hold in setting of ? UTI #CAD/Angina- Metoprolol, rosuvastatin, isosorbide mononitrate, ranolazine - con tinue #RLS- Pramipexole - continue Dispo: Admit, med/sx VTE Prophylaxis: On Eliquis - continue This document was dictated utilizing [employer]. Please excuse any grammatical errors that may be secondary to use of this software. Admission and Anticipated Discharge Date Admission Date: 09/08/2025 History of Present Illness Chief Complaint: Weakness Primary Care Provider: Yancy Zurita PA-C 69-year-old female PMHx HFpEF, T2DM, HTN, hypercholesterolemia, CAD s/p stent, chronic leg/back pain, history of seizure-like activity, MS, A-flutter, and history of UTIs presenting for weakness the evening of arrival. Pt is a poor historian as she had to be woke up to have conversation given the time of night; she responds appropriately but does continue to fall back asleep. Reports that her legs "gave out" earlier the day of arrival, and she felt weak. She did not have any numbness/tingling, no syncope, no CP, no dizziness. She did not injure herself. Has had increased urinary incontinence. Denies pain, calf swelling, chest pain, SOB, abdominal pain, or N/V. Pt without any complaints at this time. She states that her legs were "bothering her" when she was initially sleeping, but once she changed position, the symptoms immediately improved. ED evaluation revealed CBC without leukocytosis or leukopenia, H&H 11.2/35.7, stable platelets; PT/INR WNL; CMP glucose 292, alkaline phosphatase 115; pending AST and potassium; TSH 3.287; troponin 10.1; UA suspicious for infection; COVID/flu/RSV negative; CXR pending official read.; Provided with 500 mL NSS, Zofran 4 tanvir IV, nystatin morphine 2 mg IV, and ceftriaxone 2 g IV in ED. Please see Dr. Nascimento attestation for adjustments/additions to treatment plan. Allergies Allergy/AdvReac Type Severity Reaction Status Date / Time bee venom protein (honey bee) Allergy Severe DIFFICULTY Verified 08/31/25 10:52 BREATHING/HIVES/ITCHY Home Medications Medication Instructions Recorded Confirmed Type magnesium oxide 400 mg (241.3 mg 400 mg PO QAM #0 tabs 11/04/24 09/08/25 Rx magnesium) tablet acetaminophen 500 mg tablet 1,000 mg PO Q8H PRN Pain 11/27/24 09/08/25 History (Tylenol Extra Strength) rosuvastatin 40 mg tablet 40 mg PO DAILY 02/06/25 09/08/25 History baclofen 10 mg tablet 10 mg PO TID #180 tabs 05/26/25 09/08/25 Rx pramipexole 0.25 mg tablet 0.5 mg PO BID 05/28/25 09/08/25 History ezetimibe 10 mg tablet 10 mg PO DAILY 06/13/25 09/08/25 History semaglutide 0.25 mg or 0.5 mg (2 0.25 mg subcut WK 06/13/25 09/08/25 History mg/3 mL) subcutaneous pen injector (Ozempic) apixaban 5 mg tablet 5 mg PO BID #60 tabs 06/18/25 09/08/25 Rx isosorbide mononitrate 60 mg 60 mg PO QAM #30 tabs 06/18/25 09/08/25 Rx tablet,extended release 24 hr ranolazine 500 mg tablet,extended 500 mg PO DAILY #30 tabs 06/18/25 09/08/25 Rx release,12 hr ocrelizumab 30 mg/mL intravenous 300 mg (10 mL) IV .COMPLEX #20 mL 07/07/25 09/08/25 Rx solution (Ocrevus) furosemide 20 mg tablet 20 mg PO BID #30 tabs 07/20/25 09/08/25 Rx potassium chloride 20 mEq 20 meq PO DAILY #30 tabs 07/20/25 09/08/25 Rx tablet,extended release(part/cryst) methenamine hippurate 1 gram tablet 1 g PO BID #60 tabs 08/11/25 09/08/25 Rx nystatin 100,000 unit/gram topical 1 applic topical BID #60 grams 08/11/25 09/08/25 Rx powder amlodipine 10 mg tablet 10 mg PO DAILY 09/08/25 09/08/25 History metoprolol succinate 200 mg 200 mg PO DAILY 09/08/25 09/08/25 History tablet,extended release 24 hr Past Med/Surg History Problem List (Updated 09/08/25 @ 04:57 by Background Daemeli) Ambulatory dysfunction Elevated alkaline phosphatase level Type 2 diabetes mellitus Weakness Acute UTI (Acute) Renal insufficiency Coronary artery disease Sinus tachycardia (Acute) Chest pain (Acute) S/P coronary artery stent placement Chronic heart failure with preserved ejection fraction Gross hematuria Diabetes mellitus Multiple sclerosis Proteinuria Ataxia Urinary incontinence Leg weakness Norovirus Paroxysmal atrial flutter Acute on chronic heart failure with preserved ejection fraction (HFpEF) Acute hypercapnic respiratory failure CARLIN (acute kidney injury) Dystonia Cervical myelopathy Demyelinating disease of central nervous system Carotid stenosis, right Elevated lactic acid level (Acute) Elevated troponin (Acute) Seizure-like activity (Acute) Acute UTI (Acute) Tachycardia (Acute) Hypertension (Acute) Altered mental status (Acute) Encephalopathy Septic shock Pyelonephritis Hypotension Elevated troponin Seizure-like activity Lumbar spondylosis Lumbar stenosis with neurogenic claudication Spondylolisthesis, lumbar region Scoliosis of lumbar region due to degenerative disease of spine in adult Left leg weakness Recurrent UTI Sciatica (Acute) Fever (Acute) CHF (congestive heart failure) Acute metabolic encephalopathy Tachycardia Uncontrolled type 2 diabetes mellitus with hyperglycemia Altered mental status Sepsis Lumbar facet joint syndrome Spinal stenosis, lumbar region without neurogenic claudication Hypercholesteremia HTN (hypertension) (Acute) Restless leg Medical History Type [address] elevation Acute UTI Surgical History History of lumbar surgery L4-5 discectomy Social History Smoking Status: Former smoker Tobacco Type: Cigarettes Smoking End Date: 20 years ago; Second Hand Exposure: No; Do You Dip or Chew Tobacco: No; Hx Alcohol Use: No Hx Substance Use: No Preferred Language: Romansh Communication Ability: Effective Visual Impairment: Limited Hearing Ability: Hard of Hearing Manager Of Patient Required: No Beliefs That Will Affect Care: None marital status: Current Living Situation: Spouse and Family Current Living Situation Comment: home with and 3 grandkids current occupational status: retired Other Information That Helps Us Care for You: No Feels Safe at Home: Yes Safety Concerns: Feels Safe At This Time Assistive Devices: Glasses, Hospital Bed, Walker and Wheelchair Review of Systems Review of Systems: All systems reviewed & are unremarkable except as noted in Subjective Physical Exam Physical Exam: General: No acute distress, sleeping upon initial arrival into room Skin: Warm and dry; Chronic skin changes BLE Head: Normocephalic, atraumatic Eyes: PERRL, conjunctivae clear, sclera non-icteric; wearing glasses ENT: External ear and ear canal without swelling; nose atraumatic; good dentition, tongue normal appearance, pharynx normal Neck: Supple, no LAD Cardio: RRR, no M/G/R, S1 and S2 normal Resp: No respiratory distress, Lungs CTA in all lobes bilaterally, no wheezes, rales, or rhonchi Abdomen: Soft, symmetric, nontender; No masses or hepatosplenomegaly; Bowel sounds normoactive MSK: No deformities; pulses palpable and equal; trace pitting edema BLE to mid- calf, no calf size discrepancies. Neuro: Awake, alert; Sensation intact bilaterally; CN grossly intact Psych: Appropriate mood and affect; good judgement and insight; Asleep when initially entering room, but responds to questions appropriately once awake. Results & Data Results & Data Vital Signs (Past 12 Hours) Vital Signs Temp Pulse Pulse Resp BP BP Pulse Ox 09/08/25 01:08 110 H 128/71 94 09/07/25 23:28 105 H 20 133/68 96 09/07/25 22:03 95 09/07/25 22:00 09/07/25 21:42 87 09/07/25 21:22 36.7 C 90 16 133/76 98 O2 Del Method 09/08/25 01:08 Room Air 09/07/25 23:28 Room Air 09/07/25 22:03 Room Air 09/07/25 22:00 Room Air 09/07/25 21:42 09/07/25 21:22 Room Air Laboratory Results 09/08/25 00:03 Aerobic Blood Culture - Pending Blood Anaerobic Blood Culture - Pending 09/07/25 23:05 Urine Culture - Pending Urine,Straight Cath 09/08/25 09/07/25 09/07/25 00:04 23:23 23:05 WBC 7.06 RBC 4.79 Hgb 11.2 L Hct 35.7 L MCV 74.5 L MCH 23.4 L MCHC 31.4 L RDW Std Deviation 41.6 RDW Coeff of [place] 15.5 H Plt Count 377 MPV 9.5 Immature Gran % (Auto) 0.3 Neut % (Auto) 68.8 Lymph % (Auto) 18.7 [place] % (Auto) 9.2 Eos % (Auto) 2.3 Baso % (Auto) 0.7 Neut # (Auto) 4.86 Lymph # (Auto) 1.32 [place] # (Auto) 0.65 H Eos # (Auto) 0.16 Baso # (Auto) 0.05 Immature Gran # (Auto) 0.02 PT 11.5 INR 1.1 APTT 28 PTT Ratio 1.0 Sodium 136 Potassium TNP Chloride 102 Carbon Dioxide 24 Anion Gap 10 BUN 18 Creatinine 1.03 Est Cr Clr Drug Dosing 55.4 eGFR 59.60 BUN/Creatinine Ratio 17.5 Glucose 292 H Calcium 9.0 Magnesium 1.8 Total Bilirubin 0.5 AST TNP ALT 15 Alkaline Phosphatase 115 H Troponin I High Sens 10.1 Total Protein 7.4 Albumin 3.7 Globulin 3.7 Albumin/Globulin Ratio 1.0 TSH 3.287 Urine Color Yellow Urine Appearance Turbid A Urine pH 5.5 Ur Specific [place] 1.021 Urine Protein 2+ H Urine Glucose (UA) 3+ H Urine Ketones Trace H Urine Blood 3+ H Urine Nitrite Positive A Urine Bilirubin Negative Urine Urobilinogen Negative Ur Leukocyte Esterase 3+ H Urine WBC (Auto) >50 H Urine RBC (Auto) >20 H U Hyaline Cast (Auto) 3-5 H U Epithel Cells (Auto) 11-20 H Urine Bacteria (Auto) 4+ H Urine Comment SARS-CoV-2 (PCR) NEGATIVE Influenza Type A (PCR) Negative Influenza Type B (PCR) Negative RSV (RT-PCR) Negative Medications Administered 500 mL NSS Zofran 4 mg IV Nystatin Morphine 2 mg IV Ceftriaxone 2 g IV ECG Additional Comments: NSR 89 bpm, [place] 134, QRS 76, QT/QTc 370/450, PRT 43/-10/31 Code Status & VTE Plan Code Status Full Supervising Physician Co-Signing Physician Notes Attending addendum: I have physically seen this patient, have supervised the TASHA's activities, and agree with the H&P unless as otherwise noted. Assessment and Plan: The patient is a 69-year-old female with past medical history including HFpEF, diabetes mellitus type 2, hypertension, hypercholesterolemia, CAD status post stent, chronic leg and back pain, history of seizure-like activity, MS, atrial flutter, and history of recurrent urine tract infections. She she presents to the emergency department with generalized weakness. Hemoglobin is slightly reduced at 11.2. Glucose elevated to 92. Urinalysis suggest urinary tract infection. Should be admitted for IV antibiotics. Generalized Weakness/ambulatory dysfunction/urinary tract infection- Follow urine culture and sensitivity COVID/flu/RSV testing negative Follow-up blood culture and sensitivity Fall precautions Cefepime 2 g IV every 12 hours Zofran 4 mg IV every 6 hours as needed Acetaminophen 1 g IV every 8 hours as needed mild pain or fever Consult PT/OT Multiple sclerosis- Follows with neurology with most recent visit 08/31/2025 Ocrelizumab as outpatient Atrial flutter/hypertension/HFpEF- Continue furosemide, metoprolol, amlodipine and Eliquis Remaining orders and notations as noted PG Care Time/CCT Total # of Minutes Spent Total Time Spent with Patient: Total time spent is greater than 50% in coordination of care (as documented) at patient's floor/unit and/or counseling patient: Coding Level of Care Code 27269 INT INP/OBS CARE 3/75MIN Diagnoses Weakness R53.1 Acute UTI N39.0 Ambulatory dysfunction R26.2 Elevated alkaline phosphatase level R74.8 Type 2 diabetes mellitus E11.9
[2025-09-08] MEDS: cefTRIAXone SODIUM 2,000 MG/50 ML BAG IV STA (01:36)
[2025-09-08 01:58] LABS: Potassium 3.7 mmol/L (3.5-5.1)
[2025-09-08] MEDS: MAGNESIUM SULFATE / D5W 1 GM/100 ML BAG IV SCH (04:06)
[2025-09-08] MEDS ORDERED: MELATONIN 3 MG TAB PO PRN (05:43)
[2025-09-08] MEDS ORDERED: POLYETHYLENE (MIRALAX) 17 GM PACK PO PRN (05:43)
[2025-09-08] MEDS ORDERED: ONDANSETRON INJ 2 MG/ML 2 ML VIAL IV PRN (05:43)
[2025-09-08] MEDS: ACETAMINOPHEN 500 MG TAB PO PRN (06:17)
[2025-09-08] MEDS: CEFEPIME 2000MG 2,000 MG/20 ML SYR IV SCH (06:17)
[2025-09-08] MEDS ORDERED: DEXTROSE 50% 50 ML SYRINGE IV PRN (07:39)
[2025-09-08] MEDS ORDERED: GLUCOSE 10 TAB/TUBE PO PRN (07:39)
[2025-09-08] MEDS ORDERED: GLUCAGON FOR INJ 1 MG VIAL SQ PRN (07:39)
[2025-09-08] MEDS ORDERED: GLUCOSE 40% GEL 15 GM TUBE PO PRN (07:39)
[2025-09-08] MEDS ORDERED: CARBOHYDRATES FOR HYPOGLYCEMIA PO PRN (07:39)
--- NOTE | 2025-09-08 07:50 | XRay Report ---
EXAM: XR chest 1V not portable CLINICAL HISTORY: Weakness TECHNIQUE: X-ray images of the chest were obtained in the frontal projection. COMPARISON: Compared with X-ray dated 06.13.25 FINDINGS: Pulmonary Parenchyma: The lungs are clear bilaterally. No evidence of consolidation, collapse, or focal opacities. No pulmonary nodules are identified. There is no evidence of pleural effusion or pleural thickening. Heart and Mediastinum: The heart size is enlarged. No mediastinal widening or masses are identified. No hilar or mediastinal lymphadenopathy. Bony Thorax: The bony thorax appears intact, without fractures or deformities. Soft Tissues: The soft tissues overlying the chest wall are unremarkable. IMPRESSION: 1. Cardiomegaly, same as in previous X-ray. 2. No acute cardiopulmonary abnormalities are identified. Electronically signed by Rafi Cook 09-08-2025 07:50 AM
[2025-09-08] MEDS: NYSTATIN POWDER 15GM BTL EXT SCH (08:49)
[2025-09-08] MEDS: POTASSIUM CHLORIDE CRTAB 20 MEQ TABCR PO SCH (08:50)
[2025-09-08] MEDS: METOPROLOL SUCC 50MG EXT REL TAB PO SCH (08:50)
[2025-09-08] MEDS: ISOSORBIDE MONO EXTENDED REL 60 MG TABCR PO SCH (08:50)
[2025-09-08] MEDS: EZETIMIBE 10 MG TAB PO SCH (08:50)
[2025-09-08] MEDS: RANOLAZINE 500 MG ER TAB PO SCH (08:50)
[2025-09-08] MEDS: ROSUVASTATIN CALCIUM 20 MG TAB PO SCH (08:50)
[2025-09-08] MEDS: PRAMIPEXOLE DIHYDROCHLO 0.5 MG TAB PO SCH (08:51)
[2025-09-08] MEDS: FUROSEMIDE 20 MG TAB PO SCH (08:51)
[2025-09-08] MEDS: APIXABAN 5 MG TABLET PO SCH (08:51)
[2025-09-08] MEDS: MAGNESIUM OXIDE 400 MG TAB PO SCH (08:51)
[2025-09-08] MEDS: BACLOFEN 10 MG TAB PO SCH (08:56)
[2025-09-08] MEDS ORDERED: METOPROLOL TARTRATE 100 MG TAB PO SCH (09:00)
[2025-09-08] MEDS ORDERED: Nursing to Pharmacy Communication SCH (09:00)
[2025-09-08] MEDS: INSULIN ASPART PER UNIT CHARGE SC SCH (10:02)
[2025-09-08] MEDS ORDERED: INSULIN ASPART PER UNIT CHARGE SC SCH (11:30)
--- NOTE | 2025-09-08 11:37 | Hospitalist Progress Note ---
Date of Service September 08, 2025 Assessment & Plan (1) Weakness: (2) Acute UTI: (3) Ambulatory dysfunction: (4) Elevated alkaline phosphatase level: (5) Type 2 diabetes mellitus: Plan 69-year-old female PMHx HFpEF, T2DM, HTN, hypercholesterolemia, CAD s/p stent, chronic leg/back pain, history of seizure-like activity, MS, A-flutter, and history of UTIs presenting for weakness the evening of arrival on 09/08/2025 #Weakness/UTI/Ambulatory Dysfunction CBC without leukocytosis/leukopenia, H&H 11.2/35.7; CMP glucose 292, alkaline phosphatase 115; troponin 10.1; TSH 3.287 COVID/flu/RSV negative Blood cx pending UA suspicious for infection; pending cx CXR neg for acute pathology Fall precautions Zofran prn N/V; Acetaminophen prn fever/pain Cefepime IV Consider MRI/Neuro consult as appropriate PT/OT ordered - appreciate assistance #Elevated alkaline phosphatase No abdominal pain, N/V. Has had elevated levels in the past as well. No tenderness on abdominal exam during palpation. No DEXA scan found in chart. CTAP from 06/13/2025 revealed hepatic steatosis/hepatomegaly, no gallstones or additional changes Trend alk phos as appropriate #T2DM H/o DMT2; At home regimen includes Ozempic weekly (Mondays). Glucose on arrival 292; Most recent A1C 05/2025 @ 8.4% SSI coverage, adjust as necessary #MS- Follows with neurology, most recent visit 08/31/2025; Ocrelizumab - continue in outpatient setting #Dermatological- Nystatin - continue #HTN- Amlodipine - continue #Aflutter- Eliquis - continue #Hypercholesterolemia- Ezetimibe, rosuvastatin - continue #HFpEF- Furosemide (KCl supplementation), metoprolol - continue #Chronic UTI- Is scheduled to have an outpatient appointment with urology for recurrent UTIS; Methenamine hippurate - hold in setting of ? UTI #CAD/Angina- Metoprolol, rosuvastatin, isosorbide mononitrate, ranolazine - continue #RLS- Pramipexole - continue Dispo: Admit, med/sx VTE Prophylaxis: On Eliquis - continue Admission and Anticipated Discharge Date Admission Date: September 08, 2025 Supervising Physician Co-Signing Physician Notes The patient was not seen by me. The chart was reviewed. Case discussed with LEYDA Cruz. Agree with assessment and plan Subjective Lillian was seen & examined this morning. She reports lower extremity pain & weakness but denies any additional complaints at time of encounter. Physical Exam Physical Exam: General: NAD, VS: BP 135/78; P104; R18; T37C Resp: normal respiratory effort, lungs clear to auscultation CV: RRR, no murmur Extremities: Moves all extremities, no edema Neuro: A&O x3, Skin: intact, no lesions noted Results & Data Results & Data Vital Signs (Past 12 Hours) Vital Signs Temp Pulse Pulse Pulse Resp BP Pulse Ox 09/08/25 11:27 36.8 C 121 H 18 163/82 H 91 09/08/25 09:44 09/08/25 07:32 37.2 C 117 H 18 142/81 H 92 09/08/25 06:40 09/08/25 05:49 36.9 C 122 H 22 137/74 91 09/08/25 05:25 99 H 140/75 95 09/08/25 05:22 95 H 09/08/25 05:15 97 09/08/25 05:00 88 L 09/08/25 04:07 111 H 16 162/87 H 95 09/08/25 03:12 88 140/84 97 09/08/25 01:37 90 09/08/25 01:08 110 H 128/71 94 O2 Del Method O2 Flow Rate 09/08/25 11:27 Room Air 09/08/25 09:44 Room Air 09/08/25 07:32 Room Air 09/08/25 06:40 Room Air 09/08/25 05:49 Room Air 09/08/25 05:25 Nasal Cannula 2 09/08/25 05:22 09/08/25 05:15 Nasal Cannula 2 09/08/25 05:00 Room Air 09/08/25 04:07 Room Air 09/08/25 03:12 Room Air 09/08/25 01:37 09/08/25 01:08 Room Air PG Care Time/CCT Total # of Minutes Spent Total Time Spent with Patient: Total time spent is greater than 50% in coordination of care (as documented) at patient's floor/unit and/or counseling patient: Coding Level of Care Code None Diagnoses Weakness R53.1 Acute UTI N39.0 Ambulatory dysfunction R26.2 Elevated alkaline phosphatase level R74.8 Type 2 diabetes mellitus E11.9
[2025-09-09] MEDS: MICONAZOLE NITRATE POWDER 85 GM EXT PRN (03:10)
[2025-09-09] MEDS: LIDOCAINE 5% 1 PATCH TD SCH (08:42)
[2025-09-09 09:44] LABS: Hematocrit (blood only) 31.4 % (37.0-47.0); Hemoglobin 10.0 g/dL (12.0-16.0); Mean Corpuscular Hemoglobin 24.0 pg (25.0-34.0); Mean Corpuscular Volume 75.3 fL (80.0-100.0); Platelet Count 331 K/uL (130-400); RDW Standard Deviation 42.8 fL (36.4-46.3); Red Blood Count 4.17 M/uL (4.20-5.40); White Blood Count 10.21 K/ul (4.8-10.8)
[2025-09-09 10:00] LABS: Anion Gap 8.0 (3-11); Blood Urea Nitrogen 11.0 mg/dl (6-23); Calcium 8.2 mg/dl (8.6-10.3); Carbon Dioxide 25.0 mmol/L (21-32); Chloride 102.0 mmol/L (98-107); Creatinine Clr Calc Pharmacy 60.4 ml/min; Glucose 216.0 mg/dl (70-99(Fasting)); Potassium 3.4 mmol/L (3.5-5.1); Sodium 135.0 mmol/L (136-145)
--- NOTE | 2025-09-09 11:17 | Hospitalist Progress Note ---
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 K mildly low at 3.4 s/p repletion. COVID/flu/RSV negative; CXR neg for acute pathology Blood cx pending UA suspicious for infection; UC + for E. Coli. --> can downgrade from Cefepime to Ceftriaxone. Fall precautions Zofran prn N/V; Acetaminophen prn fever/pain PT/OT consulted --> recommending rehab. #Low back pain pt reports chronic issue ongoing outpatient. continue baclofen TID scheduled. Lidocaine patch daily & scheduled Tylenol TID Oxycodone prn for severe pain. OOB for all meals. #T2DM H/o DMT2; At home regimen includes Ozempic weekly (Mondays). Glucose on arrival 292; Most recent A1C 05/2025 @ 8.4% SSI coverage, adjust as necessary #Elevated alkaline phosphatase No abdominal pain, N/V. Has had elevated levels in the past as well. No tenderness on abdominal exam during palpation. No DEXA scan found in chart. CTAP from 06/13/2025 revealed hepatic steatosis/hepatomegaly, no gallstones or additional changes Can perform further workup in outpatient setting. #MS- Follows with neurology, most recent visit 08/31/2025; Ocrelizumab - continue in outpatient setting #Dermatological- Nystatin - continue #HTN- Amlodipine - continue #Aflutter- Eliquis - continue #Hypercholesterolemia- Ezetimibe, rosuvastatin - continue #HFpEF- Furosemide (KCl supplementation), metoprolol - continue #Chronic UTI- Is scheduled to have an outpatient appointment with urology for recurrent UTIS; Methenamine hippurate - hold in setting of ? UTI #CAD/Angina- Metoprolol, rosuvastatin, isosorbide mononitrate, ranolazine - continue #RLS- Pramipexole - continue Dispo: Admit, med/sx VTE Prophylaxis: On Eliquis - continue Admission and Anticipated Discharge Date Admission Date: September 08, 2025 Supervising Physician Co-Signing Physician Notes The patient was not seen by me. The chart was reviewed. Case discussed with LEYDA Cruz. Agree with assessment and plan Subjective Lillian was seen & examined this morning. She reports some low back pain. Reports this is chronic for her and she has gone to rehab for this in the past. reports neck discomfort secondary to the hospital bed/pillow. She denied any urinary complaints. Physical Exam Physical Exam: General: NAD, VS: BP 128/73; P102; R16; T36.5C Resp: normal respiratory effort Extremities: Moves all extremities, no edema Neuro: A&O x3 Skin: intact, no lesions noted Results & Data Results & Data Vital Signs (Past 12 Hours) Vital Signs Temp Pulse Resp BP Pulse Ox O2 Del Method O2 Flow Rate 09/09/25 07:23 36.5 C 102 H 16 128/73 93 Nasal Cannula 1 09/09/25 03:44 36.6 C 96 H 18 126/74 91 Nasal Cannula 1 PG Care Time/CCT Total # of Minutes Spent Total Time Spent with Patient: Total time spent is greater than 50% in coordination of care (as documented) at patient's floor/unit and/or counseling patient: Coding Level of Care Code 24671 SUB INP/OBS CARE 2/35MIN Diagnoses Weakness R53.1 Acute UTI N39.0 Ambulatory dysfunction R26.2 Elevated alkaline phosphatase level R74.8 Type 2 diabetes mellitus E11.9"
[2025-09-09] MEDS: POTASSIUM CHLORIDE CRTAB 20 MEQ TABCR PO STA (11:26)
[2025-09-09] MEDS: ACETAMINOPHEN 500 MG TAB PO SCH (13:11)
[2025-09-09] MEDS: cefTRIAXone SODIUM 2,000 MG/50 ML BAG IV SCH (16:59)
[2025-09-09] MEDS: REMOVE LIDODERM PATCH SCH (21:40)
[2025-09-10 06:07] LABS: Hematocrit (blood only) 32.1 % (37.0-47.0); Hemoglobin 10.4 g/dL (12.0-16.0); Mean Corpuscular Hemoglobin 24.2 pg (25.0-34.0); Mean Corpuscular Volume 74.7 fL (80.0-100.0); Platelet Count 325 K/uL (130-400); RDW Standard Deviation 41.7 fL (36.4-46.3); Red Blood Count 4.30 M/uL (4.20-5.40); White Blood Count 9.14 K/ul (4.8-10.8)
[2025-09-10 06:28] LABS: Anion Gap 8.0 (3-11); Blood Urea Nitrogen 10.0 mg/dl (6-23); Calcium 8.1 mg/dl (8.6-10.3); Carbon Dioxide 27.0 mmol/L (21-32); Chloride 100.0 mmol/L (98-107); Creatinine Clr Calc Pharmacy 66.8 ml/min; Glucose 202.0 mg/dl (70-99(Fasting)); Potassium 3.3 mmol/L (3.5-5.1); Sodium 135.0 mmol/L (136-145)
[2025-09-10] MEDS: POTASSIUM CHLORIDE CRTAB 20 MEQ TABCR PO STA (09:38)
--- NOTE | 2025-09-10 10:00 | CT Scan Report ---
CT SCAN OF THE ABDOMEN AND PELVIS WITHOUT IV CONTRAST CLINICAL HISTORY: Urinary tract infection. Low back pain. COMPARISON STUDY: Prior abdominal CT scans, most recently dated 06/13/2025. TECHNIQUE: CT scan of the abdomen and pelvis is performed from the lung bases to the proximal femora. Images are reviewed in the axial, sagittal, and coronal planes. IV contrast was not administered for this examination. Note that the examination was performed in suboptimal fashion without IV contrast. A dose lowering technique was utilized adhering to the principles of ALARA. CT DOSE: 1285.7 mGy.cm FINDINGS: Lung bases: The heart is mildly enlarged noting a small to moderate pericardial effusion. The coronar y arteries are densely calcified. The lung bases are clear noting dependent atelectasis. Liver: The unenhanced liver is top normal in size and demonstrates diffusely diminished attenuation i ndicating steatosis. Fatty sparing is seen adjacent to the gallbladder fossa. There is no intrahepati c biliary ductal dilatation. Gallbladder: Unremarkable. Spleen: Normal in size and attenuation. Pancreas: The unenhanced pancreas is grossly unremarkable. Adrenal glands: Unremarkable. Kidneys: The unenhanced kidneys are normal in size and without hydronephrosis. No renal calculi are i dentified. There is no evidence of contour deforming mass lesion. Mild infiltration is seen around th e distal ureters at/below the pelvic inlet. A retroaortic left renal vein is incidentally noted. Abdominal vasculature: There is a advanced atherosclerotic calcification and mild ectasia of the abdo maria guadalupe aorta. Bowel: There is no bowel obstruction. Nayd-[id number] fecal retention is seen throughout the colon. The appendix is well-visualized and normal. Peritoneum: There is no intraperitoneal free air or abdominal ascites. There is a fat-containing umbi lical hernia. Lymphadenopathy: None. Pelvic viscera: The bladder is decompressed around a Chi catheter and appears thick-walled with hayes rounding inflammation. The uterus is enlarged, heterogeneous, and infiltrated by numerous fibroids. N o adnexal lesion is seen. Skeletal structures: The skeletal structures are osteopenic. There is moderate lumbosacral spondylosi s and mild scoliosis. No lytic or blastic lesions are seen. IMPRESSION: 1. The bladder is decompressed around a Chi catheter and appears thick walled with surrounding infl ammation. Correlate with clinical findings and urinalysis for evidence of cystitis. 2. There is mild infiltration around the distal ureters suggesting possible ascending infection. Agai n this should be correlated with clinical findings and urinalysis. 3. Mild hepatic steatosis. 4. Cardiomegaly and pericardial effusion noting advanced coronary artery atherosclerosis. 5. Additional findings as above. ACT 112: Negative or not required by law. Electronically signed by: Bereket Metz M.D. 09/10/2025 9:59 AM
--- NOTE | 2025-09-10 11:17 | Hospitalist Progress Note ---
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 Concerning for pyelonephritis. Suspect bleeding secondary to irritation from bladder in the setting of Eliquis, can hold for now until bleeding improves. CBC w/ no leukocytosis, stable hgb/plt count; K mildly low at 3.3 s/p repletion. COVID/flu/RSV negative; CXR neg for acute pathology Blood cx negative at 48 hours. UA suspicious for infection; UC + for E. Coli. --> can downgrade from Cefepime to Ceftriaxone. Fall precautions Zofran prn N/V; Acetaminophen prn fever/pain PT/OT consulted --> recommending rehab. #Low back pain pt reports chronic issue ongoing outpatient. continue baclofen TID scheduled. Lidocaine patch daily & scheduled Tylenol TID Oxycodone prn for severe pain. OOB for all meals. #T2DM H/o DMT2; At home regimen includes Ozempic weekly (Mondays). Glucose on arrival 292; Most recent A1C 05/2025 @ 8.4% SSI coverage, adjust as necessary #Elevated alkaline phosphatase No abdominal pain, N/V. Has had elevated levels in the past as well. No tenderness on abdominal exam during palpation. No DEXA scan found in chart. CTAP w/ mild hepatic steatosis Can perform further workup in outpatient setting. #MS- Follows with neurology, most recent visit 08/31/2025; Ocrelizumab - continue in outpatient setting #Dermatological- Nystatin - continue #HTN- Amlodipine - continue #Aflutter- Eliquis - continue #Hypercholesterolemia- Ezetimibe, rosuvastatin - continue #HFpEF- Furosemide (KCl supplementation), metoprolol - continue #Chronic UTI- Is scheduled to have an outpatient appointment with urology for recurrent UTIS; Methenamine hippurate - hold in setting of ? UTI #CAD/Angina- Metoprolol, rosuvastatin, isosorbide mononitrate, ranolazine - continue #RLS- Pramipexole - continue Dispo: Admit, med/sx VTE Prophylaxis: On Eliquis - hold in the setting of gross hematuria. Admission and Anticipated Discharge Date Admission Date: September 08, 2025 Supervising Physician Co-Signing Physician Notes The patient was not seen by me. The chart was reviewed. Case discussed with LEYDA Cruz. Agree with assessment and plan Subjective Lillian was seen & examined this morning. She feels she is improved today. She did develop some hematuria overnight, reports that this has happened previously when she had a UTI. She states that she would like a watermaster catheter as she has urinary incontinence at home. Denied CP or SOB. Reports back pain improved. Physical Exam Physical Exam: General: NAD, VS: BP 132/74; P92; R16; T36.6C Resp: normal respiratory effort Extremities: no edema Neuro: A&O x3 Skin: intact, no lesions noted Results & Data Results & Data Vital Signs (Past 12 Hours) Vital Signs Temp Pulse Resp BP Pulse Ox O2 Del Method 09/10/25 07:44 36.6 C 92 H 16 132/74 91 Room Air 09/09/25 23:52 36.5 C 94 H 20 129/75 92 Room Air PG Care Time/CCT Total # of Minutes Spent Total Time Spent with Patient: Total time spent is greater than 50% in coordination of care (as documented) at patient's floor/unit and/or counseling patient: Coding Level of Care Code 17602 SUB INP/OBS CARE 2/35MIN Diagnoses Weakness R53.1 Acute UTI N39.0 Ambulatory dysfunction R26.2 Elevated alkaline phosphatase level R74.8 Type 2 diabetes mellitus E11.9"
[2025-09-11 07:24] LABS: Hematocrit (blood only) 32.0 % (37.0-47.0); Hemoglobin 10.2 g/dL (12.0-16.0); Mean Corpuscular Hemoglobin 23.7 pg (25.0-34.0); Mean Corpuscular Volume 74.2 fL (80.0-100.0); Platelet Count 333 K/uL (130-400); RDW Standard Deviation 42.1 fL (36.4-46.3); Red Blood Count 4.31 M/uL (4.20-5.40); White Blood Count 8.61 K/ul (4.8-10.8)
[2025-09-11 07:50] LABS: Anion Gap 10.0 (3-11); Blood Urea Nitrogen 10.0 mg/dl (6-23); Calcium 8.4 mg/dl (8.6-10.3); Carbon Dioxide 26.0 mmol/L (21-32); Chloride 101.0 mmol/L (98-107); Creatinine Clr Calc Pharmacy 67.4 ml/min; Glucose 178.0 mg/dl (70-99(Fasting)); Potassium 3.7 mmol/L (3.5-5.1); Sodium 137.0 mmol/L (136-145)
--- NOTE | 2025-09-11 10:44 | Hospitalist Progress Note ---
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 Concerning for pyelonephritis. Suspect bleeding secondary to irritation from bladder in the setting of Eliquis, can hold for now until bleeding improves. CBC w/ no leukocytosis, stable hgb/plt count; K mildly low at 3.3 s/p repletion. COVID/flu/RSV negative; CXR neg for acute pathology Blood cx negative at 48 hours. UA suspicious for infection; UC + for E. Coli. --> can downgrade from Cefepime to Ceftriaxone. Fall precautions Zofran prn N/V; Acetaminophen prn fever/pain PT/OT consulted --> recommending rehab. Referral to [facility] placed 09/11. #Low back pain pt reports chronic issue ongoing outpatient. continue baclofen TID scheduled. Lidocaine patch daily & scheduled Tylenol TID Oxycodone prn for severe pain. OOB for all meals. #T2DM H/o DMT2; At home regimen includes Ozempic weekly (Mondays). Glucose on arrival 292; Most recent A1C 05/2025 @ 8.4% SSI coverage, adjust as necessary #Elevated alkaline phosphatase No abdominal pain, N/V. Has had elevated levels in the past as well. No tenderness on abdominal exam during palpation. No DEXA scan found in chart. CTAP w/ mild hepatic steatosis Can perform further workup in outpatient setting. #MS- Follows with neurology, most recent visit 08/31/2025; Ocrelizumab - continue in outpatient setting #Dermatological- Nystatin - continue #HTN- Amlodipine - continue #Aflutter- Eliquis - continue #Hypercholesterolemia- Ezetimibe, rosuvastatin - continue #HFpEF- Furosemide (KCl supplementation), metoprolol - continue #Chronic UTI- Is scheduled to have an outpatient appointment with urology for recurrent UTIS; Methenamine hippurate - hold in setting of ? UTI #CAD/Angina- Metoprolol, rosuvastatin, isosorbide mononitrate, ranolazine - continue #RLS- Pramipexole - continue Dispo: Admit, med/sx VTE Prophylaxis: On Eliquis - hold in the setting of gross hematuria. Continued inpatient stay, awaiting a safe discharge plan Admission and Anticipated Discharge Date Admission Date: September 08, 2025 Supervising Physician Co-Signing Physician Notes The patient was not seen by me. The chart was reviewed. Case discussed with LEYDA Cruz. Agree with assessment and plan Subjective Lillian was seen & examined this morning. She reports that she is feeling better today. She feels stronger. She reports her hematuria is starting to lighten in color as well. Physical Exam Physical Exam: General: NAD, VS: BP 125/76; P93; R18; T36.6C Resp: normal respiratory effort, Extremities: Moves all extremities, no edema Neuro: A&O x3, Skin: intact, no lesions noted Results & Data Results & Data Vital Signs (Past 12 Hours) Vital Signs Temp Pulse Resp BP Pulse Ox O2 Del Method 09/11/25 07:33 36.6 C 93 H 18 125/76 90 Room Air 09/10/25 23:19 36.4 C L 84 18 124/71 91 Room Air PG Care Time/CCT Total # of Minutes Spent Total Time Spent with Patient: Total time spent is greater than 50% in coordination of care (as documented) at patient's floor/unit and/or counseling patient: Coding Level of Care Code 40355 SUB INP/OBS CARE 2/35MIN Diagnoses Weakness R53.1 Acute UTI N39.0 Ambulatory dysfunction R26.2 Elevated alkaline phosphatase level R74.8 Type 2 diabetes mellitus E11.9"
[2025-09-12 06:18] LABS: Hematocrit (blood only) 32.1 % (37.0-47.0); Hemoglobin 10.2 g/dL (12.0-16.0); Mean Corpuscular Hemoglobin 23.6 pg (25.0-34.0); Mean Corpuscular Volume 74.3 fL (80.0-100.0); Platelet Count 350 K/uL (130-400); RDW Standard Deviation 42.0 fL (36.4-46.3); Red Blood Count 4.32 M/uL (4.20-5.40); White Blood Count 6.92 K/ul (4.8-10.8)
[2025-09-12 06:36] LABS: Anion Gap 10.0 (3-11); Blood Urea Nitrogen 10.0 mg/dl (6-23); Calcium 8.6 mg/dl (8.6-10.3); Carbon Dioxide 25.0 mmol/L (21-32); Chloride 102.0 mmol/L (98-107); Creatinine Clr Calc Pharmacy 65.8 ml/min; Glucose 171.0 mg/dl (70-99(Fasting)); Potassium 3.7 mmol/L (3.5-5.1); Sodium 137.0 mmol/L (136-145)
--- NOTE | 2025-09-12 06:55 | Electrocardiogram Report ---
Test Reason : Blood Pressure : */* mmHG Vent. Rate : 89 BPM Atrial Rate : 89 BPM P-R Int : 134 ms QRS Dur : 76 ms QT Int : 370 ms P-R-T Axes : 43 -1 31 degrees QTcB Int : 450 ms Normal sinus rhythm Normal ECG When compared with ECG of 18-Aug-2025 08:31, (unconfirmed) No significant change was found Confirmed by Santnio Mcdermott ([id number]) on 09/12/2025 6:55:13 AM Referred By: REFERRED SELF Confirmed By: Santino Mcdermott
--- NOTE | 2025-09-12 11:31 | Hospitalist Progress Note ---
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 Concerning for pyelonephritis. Suspect bleeding secondary to irritation from bladder in the setting of Eliquis, hopeful to resume Eliquis 09/13 PM. CBC w/ no leukocytosis, stable hgb/plt count; K now stable at 3.7; COVID/flu/RSV negative; CXR neg for acute pathology Blood cx negative at 48 hours; UC + for E. Coli. --> Ceftriaxone through 09/16. Zofran prn N/V; Acetaminophen prn fever/pain Fall precautions; PT/OT consulted --> recommending rehab. Referral to [facility] placed 09/11. #Low back pain pt reports chronic issue ongoing outpatient. continue baclofen TID scheduled. Lidocaine patch daily & scheduled Tylenol TID Oxycodone prn for severe pain. OOB for all meals. #T2DM H/o DMT2; At home regimen includes Ozempic weekly (Mondays). Glucose on arrival 292; Most recent A1C 05/2025 @ 8.4% SSI coverage, adjust as necessary #Elevated alkaline phosphatase No abdominal pain, N/V. Has had elevated levels in the past as well. No tenderness on abdominal exam during palpation. No DEXA scan found in chart. CTAP w/ mild hepatic steatosis Can perform further workup in outpatient setting. #MS- Follows with neurology, most recent visit 08/31/2025; Ocrelizumab - continue in outpatient setting #Dermatological- Nystatin - continue #HTN- Amlodipine - continue #Aflutter- Eliquis - continue #Hypercholesterolemia- Ezetimibe, rosuvastatin - continue #HFpEF- Furosemide (KCl supplementation), metoprolol - continue #Chronic UTI- Is scheduled to have an outpatient appointment with urology for recurrent UTIS; Methenamine hippurate - hold in setting of ? UTI #CAD/Angina- Metoprolol, rosuvastatin, isosorbide mononitrate, ranolazine - continue #RLS- Pramipexole - continue Dispo: Admit, med/sx VTE Prophylaxis: On Eliquis - hold in the setting of gross hematuria. Continued inpatient stay, awaiting a safe discharge plan Admission and Anticipated Discharge Date Admission Date: September 08, 2025 Supervising Physician Co-Signing Physician Notes The patient was not seen by me. The chart was reviewed. Case discussed with LEYDA Cruz. Agree with assessment and plan Subjective Lillian was seen & examined this morning. She had met with the pet therapy dog prior to my arrival & was in good spirits. She did mention she would like to get out of bed as her back/neck were feeling better. Denied any additional complaints. urine color is now yellow. Physical Exam Physical Exam: General: NAD, VS: BP 119/74; P81; R18; T36.6C Resp: normal respiratory effort Extremities: Moves all extremities, no edema Neuro: A&O x3 Skin: intact, no lesions noted Results & Data Results & Data Vital Signs (Past 12 Hours) Vital Signs Temp Pulse Resp BP Pulse Ox O2 Del Method 09/12/25 07:18 36.6 C 81 18 119/74 93 Room Air PG Care Time/CCT Total # of Minutes Spent Total Time Spent with Patient: Total time spent is greater than 50% in coordination of care (as documented) at patient's floor/unit and/or counseling patient: Coding Level of Care Code 20765 SUB INP/OBS CARE 2/35MIN Diagnoses Weakness R53.1 Acute UTI N39.0 Ambulatory dysfunction R26.2 Elevated alkaline phosphatase level R74.8 Type 2 diabetes mellitus E11.9"
--- NOTE | 2025-09-13 10:47 | Hospitalist Progress Note ---
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 Concerning for pyelonephritis. --> Hematuria has resolved, resume Eliquis 09/13. CBC w/ no leukocytosis, stable hgb/plt count; K now stable at 3.7; COVID/flu/RSV negative; CXR neg for acute pathology Blood cx negative at 48 hours; UC + for pansensitive E. Coli. --> Ceftriaxone through 09/16. Zofran prn N/V; Acetaminophen prn fever/pain Discussed [place] removal secondary to discomfort but patient would prefer to keep in at this time. Trial Pyridium prn. Fall precautions; PT/OT consulted --> recommending rehab. Referral to [facility] placed 09/11. #Low back pain - improving pt reports chronic issue ongoing outpatient. continue baclofen TID scheduled. Lidocaine patch daily & scheduled Tylenol TID Oxycodone prn for severe pain. OOB for all meals. #T2DM H/o DMT2; At home regimen includes Ozempic weekly (Mondays). Glucose on arrival 292; Most recent A1C 05/2025 @ 8.4% SSI coverage, adjust as necessary #Elevated alkaline phosphatase No abdominal pain, N/V. Has had elevated levels in the past as well. No tenderness on abdominal exam during palpation. No DEXA scan found in chart. CTAP w/ mild hepatic steatosis Can perform further workup in outpatient setting. #MS- Follows with neurology, most recent visit 08/31/2025; Ocrelizumab - continue in outpatient setting #Dermatological- Nystatin - continue #HTN- Amlodipine - continue #Aflutter- Eliquis - continue #Hypercholesterolemia- Ezetimibe, rosuvastatin - continue #HFpEF- Furosemide (KCl supplementation), metoprolol - continue #Chronic UTI- Is scheduled to have an outpatient appointment with urology for recurrent UTIS; Methenamine hippurate - hold in setting of UTI #CAD/Angina- Metoprolol, rosuvastatin, isosorbide mononitrate, ranolazine - continue #RLS- Pramipexole - continue Dispo: Admit, med/sx VTE Prophylaxis: Eliquis Continued inpatient stay, awaiting a safe discharge plan Admission and Anticipated Discharge Date Admission Date: September 08, 2025 Supervising Physician Co-Signing Physician Notes The patient was not seen by me. The chart was reviewed. Case discussed with LEYDA Cruz. Agree with assessment and plan Subjective Lillian was seen & examined this morning. She was sitting in her chair. reports to be feeling well today. Her only complaint is the irritation that her riojas catheter is causing her. Discussed with her that we can remove the urinary catheter but she reports that she would prefer to keep it in place as she is incontinent. Physical Exam Physical Exam: General: NAD, VS: BP 110/71; P81; R19; T36.6C Resp: normal respiratory effort Extremities: Moves all extremities, no edema Neuro: A&O x3 Skin: intact, no lesions noted Results & Data Results & Data Vital Signs (Past 12 Hours) Vital Signs Temp Pulse Resp BP Pulse Ox O2 Del Method 09/13/25 07:22 36.6 C 81 19 110/71 93 Room Air PG Care Time/CCT Total # of Minutes Spent Total Time Spent with Patient: Total time spent is greater than 50% in coordination of care (as documented) at patient's floor/unit and/or counseling patient: Coding Level of Care Code 22200 SUB INP/OBS CARE 2/35MIN Diagnoses Weakness R53.1 Acute UTI N39.0 Ambulatory dysfunction R26.2 Elevated alkaline phosphatase level R74.8 Type 2 diabetes mellitus E11.9"
[2025-09-13] MEDS ORDERED: PHENAZOPYRIDINE HCL 200 MG TAB PO PRN (14:04)
[2025-09-13 22:27] VITALS: PULSE 79; O2SAT 93
[2025-09-14 07:16] VITALS: RESP 18; TEMP 97.5
--- NOTE | 2025-09-14 12:09 | Discharge Summary ---
Discharge Summary Date of Service September 14, 2025 Principal Dx & Hospital Course #1 = Principal Diagnosis (1) Weakness: (2) Acute UTI: (3) Ambulatory dysfunction: (4) Elevated alkaline phosphatase level: (5) Type 2 diabetes mellitus: Plan 69-year-old female PMHx HFpEF, T2DM, HTN, hypercholesterolemia, CAD s/p stent, chronic leg/back pain, history of seizure-like activity, MS, A-flutter, and history of UTIs presenting for weakness the evening of arrival on 09/08/2025 #Weakness| Pyelonephritis | Ambulatory Dysfunction - CTAP obtained secondary to hematuria on 09/10 - consistent with cystitis & possible ascending infection to distal ureters. Concerning for pyelonephritis. --> Hematuria has resolved, resume Eliquis 09/13. COVID/flu/RSV negative; CXR neg for acute pathology. Blood cultures negative, finalized. UC: méndez sensitive Ecoli - received ceftriaxone, abx should be continued through 09/16 Blood cx negative at 48 hours; UC + for pansensitive E. Coli. --> Ceftriaxone through 09/16. #Groin rash - secondary to incontience and wearing briefs. Has been using Nystatin cream at home. Visualized today and signficantly less beefy red that pictures in chart, but overall area of wound has not decreased. Discussed with Attending physican Dr. Madera, recommended one time dose of 1g Clarithromycin for coverage. If no improvement in 2-3 days consider PO antifungals. Patient reports she was changing her brief 10+ times at home. Recommend keeping riojas in place at this time to help healing. #Low back pain - improving pt reports chronic issue ongoing outpatient. continue baclofen TID scheduled. Lidocaine patch daily & scheduled Tylenol TID #T2DM - continue home regimen: Ozempic weekly (Mondays). Recieved SSI while inpatient. #Elevated alkaline phosphatase- No abdominal pain, N/V. Has had elevated levels in the past as well. No tenderness on abdominal exam during palpation. No DEXA scan found in chart. CTAP w/ mild hepatic steatosis Can perform further workup in outpatient setting. #MS- Follows with neurology, most recent visit 08/31/2025; Ocrelizumab - continue in outpatient setting #Dermatological- Nystatin - continue #HTN- Amlodipine - continue #Aflutter- Eliquis - continue #Hypercholesterolemia- Ezetimibe, rosuvastatin - continue #HFpEF- Furosemide (KCl supplementation), metoprolol - continue #Chronic UTI- Is scheduled to have an outpatient appointment with urology for recurrent UTIS; Methenamine hippurate - hold in setting of UTI #CAD/Angina- Metoprolol, rosuvastatin, isosorbide mononitrate, ranolazine - continue #RLS- Pramipexole - continue Dispo discharge to [facility] today Patient reports difficulty getting ahold of her PCP, and the PA that she normally sees is leaving. Agreeable to transfer care to [facility] - appointment made with Dr. Chloé Jovel Notes For Next Care Provider transferring care to [place] PCP monitor alk phos and groin rash Admission HPI Per Admitting Provider 69-year-old female PMHx HFpEF, T2DM, HTN, hypercholesterolemia, CAD s/p stent, chronic leg/back pain, history of seizure-like activity, MS, A-flutter, and history of UTIs presenting for weakness the evening of arrival. Pt is a poor historian as she had to be woke up to have conversation given the time of night; she responds appropriately but does continue to fall back asleep. Reports that her legs "gave out" earlier the day of arrival, and she felt weak. She did not have any numbness/tingling, no syncope, no CP, no dizziness. She did not injure herself. Has had increased urinary incontinence. Denies pain, calf swelling, chest pain, SOB, abdominal pain, or N/V. Pt without any complaints at this time. She states that her legs were "bothering her" when she was initially sleeping, but once she changed position, the symptoms immediately improved. ED evaluation revealed CBC without leukocytosis or leukopenia, H&H 11.2/35.7, stable platelets; PT/INR WNL; CMP glucose 292, alkaline phosphatase 115; pending AST and potassium; TSH 3.287; troponin 10.1; UA suspicious for infection; COVID/flu/RSV negative; CXR pending official read.; Provided with 500 mL NSS, Zofran 4 tanvir IV, nystatin morphine 2 mg IV, and ceftriaxone 2 g IV in ED. Please see Dr. Nascimento attestation for adjustments/additions to treatment plan. Discharge Exam General: NAD, VS as above Resp: normal respiratory effort, lungs clear to auscultation CV: RRR, no murmur, Abd: normal bowel sounds, non tender, soft : signifcant groin rash, pale red color, appears dry over vulva, mons pubis, and bilateral thighs and extends to panus Extremities: Moves all extremities, no edema Neuro: A&O x3, Discharge Plan Discharge Items Patient Disposition: Transfer Inpatient Rehab Fac Reason For Visit: UTI, AMBULATORY DYSFUNCTION Discharge Diagnosis: UTI Condition on Discharge: Fair Activity: As commented below Activity Comment: work with therapy to get stronger Weightbearing: Full weightbearing Non-emergency contact: Primary Care Provider Call non-emergency contact if: you have any medication questions and your symptoms worsen Follow-up/Referrals: Ynacy Zurita PA-C [Primary Care Provider] - (transferring care to [place] ) Chloé Jovel DO [Physician] - 10/15/25 10:00 am (New patient establish care appointment. Please arrive 15 minutes prior to scheduled time. Please bring insurance and ID. If you are unable to keep this appointment please call the office to reschedule. ) Diet: Carb Consistent or DM2 Addtl Attending Provider Instructions: Ms. Anders, You were hospialized after having weakness at home, your evaluation in the hospital found a urinary tract infection with concerns about progression to the kidneys. You have been treated with IV antibiotics and will need three more days of antibiotics at discharge. You were also found to have a significant skin rash in the groin area - this has slightly improved with topical antifungal medications. Trial of a different antibiotic - clarithromycin one time dose on 09/14. If not improving after that, can consider oral antifungals but will leave that to the discretion of the [facility] providers. We have scheduled a PCP appointment with Dr. Chloé Barrera at [place] on 10/15/2025. When you are discharged from [facility] please call your old PCP and have records faxed to their office. No Changes to your home medications For [facility]: Needs 3 more days of antibiotics for complicated UTI - last dose ceftriaxone 09/13 @16:44 Take note to PCP change Monitor groin rash -consider PO antifungals if not improving after one time dose clarithromycin 09/14 Plan to keep riojas in place for now to help with wound healing Pending Studies at Discharge: No Stand-Alone Forms: My [facility] Skilled Items Patient informed of condition?: Yes DNR: No Discharge Level of Care: Acute rehab Communicable Disease: No Discharge Prognosis: Stable Lines: None Urinary Catheter: Yes Medications and DC Order Prescriptions: New lidocaine 5 % Adhesive Patch,Medicated 1 patch transdermal QAM Qty: 15 0RF ceftriaxone 2 gram recon soln 2 g IV DAILY Continued nystatin 100,000 unit/gram powder 1 applic topical BID Qty: 60 0RF furosemide 20 mg tablet 20 mg PO BID Qty: 30 3RF Rx Instructions: take 2 tabs in am, 1 tab 6-7 hours later for 1 week. Then 1 tab in am and 1 tab 6-7 hours later daily. potassium chloride 20 mEq tablet,ER particles/crystals 20 meq PO DAILY Qty: 30 2RF baclofen 10 mg tablet 10 mg PO TID Qty: 180 3RF Ocrevus 30 mg/mL solution 300 mg IV .COMPLEX Qty: 20 1RF Rx Instructions: 300 mg intravenously day 1 and day 15, then 600mg Q6M; 30 minutes before each infusion,premedicate with methylprednisolone 100mg IV, diphenhydramine 25mg IV,and acetaminophen 500mg PO. May give an additional 25mg diphenhydramine IV during infusion PRN acetaminophen [Tylenol Extra Strength] 500 mg tablet 1,000 mg PO Q8H PRN (Reason: Pain) amlodipine 10 mg tablet 10 mg PO DAILY metoprolol succinate 200 mg tablet extended release 24 hr 200 mg PO DAILY magnesium oxide 400 mg (241.3 mg magnesium) Tablet 400 mg PO QAM Qty: 0 0RF Rx Instructions: hold if diarrhea rosuvastatin 40 mg tablet 40 mg PO DAILY pramipexole 0.25 mg Tablet 0.5 mg PO BID ezetimibe 10 mg tablet 10 mg PO DAILY Ozempic 0.25 mg or 0.5 mg (2 mg/3 mL) pen injector 0.25 mg SUBCUT WK Rx Instructions: SUNDAY isosorbide mononitrate 60 mg Tablet Extended Release 24 Hr 60 mg PO QAM Qty: 30 0RF ranolazine 500 mg Tablet Extended Release 12 Hr 500 mg PO DAILY Qty: 30 4RF apixaban 5 mg tablet 5 mg PO BID Qty: 60 4RF Held methenamine hippurate 1 gram tablet 1 g PO BID Qty: 60 3RF Hold Instructions: Provider's Order - until completion of antibiotics Discharge Orders: Discharge Order (Routine); Ordered 09/14/25 Ordered By: Adeline Laughlin Admission Data Admit Date/Time: 09/08/25 01:46 Attending Provider: Tomás Madera Admit Provider: Shade Nascimento Primary Care Provider: Yancy Zurita Other Providers: Shade Nascimento; [facility] Other Interventions: Discharge Summary Assessment (RN) Last Done: 09/14/25 12:38 Hospital Stay Data Consultations 09/08/25 01:13 ED Decision to Admit Stat Diagnostic Imagining Performed Chest X-Ray 09/07/25 21:28 EXAM: XR chest 1V not portable CLINICAL HISTORY: Weakness TECHNIQUE: X-ray images of the chest were obtained in the frontal projection. COMPARISON: Compared with X-ray dated 06.13.25 FINDINGS: Pulmonary Parenchyma: The lungs are clear bilaterally. No evidence of consolidation, collapse, or focal opacities. No pulmonary nodules are identified. There is no evidence of pleural effusion or pleural thickening. Heart and Mediastinum: The heart size is enlarged. No mediastinal widening or masses are identified. No hilar or mediastinal lymphadenopathy. Bony Thorax: The bony thorax appears intact, without fractures or deformities. Soft Tissues: The soft tissues overlying the chest wall are unremarkable. IMPRESSION: 1. Cardiomegaly, same as in previous X-ray. 2. No acute cardiopulmonary abnormalities are identified. Electronically signed by Rafi Cook 09-08-2025 07:50 AM Abdomen/Pelvis CT 09/10/25 08:10 CT SCAN OF THE ABDOMEN AND PELVIS WITHOUT IV CONTRAST CLINICAL HISTORY: Urinary tract infection. Low back pain. COMPARISON STUDY: Prior abdominal CT scans, most recently dated 06/13/2025. TECHNIQUE: CT scan of the abdomen and pelvis is performed from the lung bases to the proximal femora. Images are reviewed in the axial, sagittal, and coronal planes. IV contrast was not administered for this examination. Note that the examination was performed in suboptimal fashion without IV contrast. A dose lowering technique was utilized adhering to the principles of ALARA. CT DOSE: 1285.7 mGy.cm FINDINGS: Lung bases: The heart is mildly enlarged noting a small to moderate pericardial effusion. The coronary arteries are densely calcified. The lung bases are clear noting dependent atelectasis. Liver: The unenhanced liver is top normal in size and demonstrates diffusely diminished attenuation indicating steatosis. Fatty sparing is seen adjacent to the gallbladder fossa. There is no intrahepatic biliary ductal dilatation. Gallbladder: Unremarkable. Spleen: Normal in size and attenuation. Pancreas: The unenhanced pancreas is grossly unremarkable. Adrenal glands: Unremarkable. Kidneys: The unenhanced kidneys are normal in size and without hydronephrosis. No renal calculi are identified. There is no evidence of contour deforming mass lesion. Mild infiltration is seen around the distal ureters at/below the pelvic inlet. A retroaortic left renal vein is incidentally noted. Abdominal vasculature: There is a advanced atherosclerotic calcification and mild ectasia of the abdominal aorta. Bowel: There is no bowel obstruction. [id number] fecal retention is seen throughout the colon. The appendix is well-visualized and normal. Peritoneum: There is no intraperitoneal free air or abdominal ascites. There is a fat-containing umbilical hernia. Lymphadenopathy: None. Pelvic viscera: The bladder is decompressed around a Riojas catheter and appears thick-walled with surrounding inflammation. The uterus is enlarged, heterogeneous, and infiltrated by numerous fibroids. No adnexal lesion is seen. Skeletal structures: The skeletal structures are osteopenic. There is moderate lumbosacral spondylosis and mild scoliosis. No lytic or blastic lesions are seen. IMPRESSION: 1. The bladder is decompressed around a Riojas catheter and appears thick walled with surrounding inflammation. Correlate with clinical findings and urinalysis for evidence of cystitis. 2. There is mild infiltration around the distal ureters suggesting possible ascending infection. Again this should be correlated with clinical findings and urinalysis. 3. Mild hepatic steatosis. 4. Cardiomegaly and pericardial effusion noting advanced coronary artery atherosclerosis. 5. Additional findings as above. ACT 112: Negative or not required by law. Electronically signed by: Bereket Metz M.D. 09/10/2025 9:59 AM Pending Results Patient Have Any Pending Studies at Discharge: No Discharge Instructions Given to Patient (Per Discharging Provider) Ms. Anders, You were hospialized after having weakness at home, your evaluation in the hospital found a urinary tract infection with concerns about progression to the kidneys. You have been treated with IV antibiotics and will need three more days of antibiotics at discharge. You were also found to have a significant skin rash in the groin area - this has slightly improved with topical antifungal medications. Trial of a different antibiotic - clarithromycin one time dose on 09/14. If not improving after that, can consider oral antifungals but will leave that to the discretion of the [facility] providers. We have scheduled a PCP appointment with Dr. Chloé Barrera at [place] on 10/15/2025. When you are discharged from [facility] please call your old PCP and have records faxed to their office. No Changes to your home medications For [facility]: Needs 3 more days of antibiotics for complicated UTI - last dose ceftriaxone 09/13 @16:44 Take note to PCP change Monitor groin rash -consider PO antifungals if not improving after one time dose clarithromycin 09/14 Plan to keep riojas in place for now to help with wound healing Total Time Total Time Spent Total Time Spent (In Minutes): .Time spent day of discharge 35 minutes including direct patient care, medication reconciliation, documentation, review of labs and images, and coordination of care. DIL updated at bedside Coding Level of Care Code 78806 INP/OBS DISCH >30 MIN Diagnoses Weakness R53.1 Acute UTI N39.0 Ambulatory dysfunction R26.2 Elevated alkaline phosphatase level R74.8 Type 2 diabetes mellitus E11.9
[2025-09-14] MEDS: CLARITHROMYCIN 500 MG TAB PO ONE (12:21)
[2025-09-14 12:39] VITALS: BP 132/73
== END 2025-09-14 13:41 | DRG 690 ==
LOC: ED 21:13 → SUATTDRO 09-08 01:46 → EDINP 09-08 01:46 → 2W 09-08 05:34 → 3N 09-11 23:12